=== PATIENT | female | born 1945 | race Caucasian/White ===

== ENCOUNTER → 2016-11-23 | Outpatient (REF) | payer MEDICARE ==
[~2016-11-23] MED LIST: ACET300T PO; ACET30TAB PO; ALBU1.25 INH; ALBU17IN INH; ALBU83IN INH; AMAR1TAB PO; AMLO5TAB2 PO; ASPI1TAB PO; ASPI325T PO; ASPI325T10 PO; ATOR40TA PO; AVEL1TAB PO; BISO5TAB54 PO; CIPR-250 PO; CIPR500T19 PO; CIPR500T89 PO; CITRACAL PO; CLOP75TA2 PO; CORT10TA PO; CORT20TA PO; DEPA250C PO; ENAL20TA PO; FLAG500T PO; GLIM1TAB PO; GLIP5TAB2 PO; GLIP5TAB8 PO; IPRASOL4 IN; LEVA500T PO; LOPR50TA PO; MAGN64TASA PO; METF500T PO; METO12TA PO; METO25TAB PO; NICO21PAT TD; NICO7DIS4 TD; NORC5TAB PO; PRED20TA PO; SIMV10TA2 PO; SIMV20TA2 PO; SPIR25TA2 PO; TYLE325T5 PO; TYLE650T30 PO; VALP250C PO; VENTAER IN; VITA100066 PO
[2016-11-23 15:13] LABS: TOTAL PROTEIN 6.4 GM/DL (6.4-8.2)
[2016-11-27 10:41] LABS: ALBUMIN 3.26 GM/DL (3.29-5.55); ALBUMIN % 50.9 % (55.8-66.1); GAMMA GLOBULIN % 12.6 % (11.1-18.8)
== END ==
LOC: M LAB REF 14:18
DX: D47.2 Monoclonal gammopathy (principal)

== ENCOUNTER → 2016-12-07 | Outpatient (CLI) | payer MEDICARE ==
[~2016-12-07] MED LIST changes: +LOPR1TAB6 PO; -LOPR50TA PO
--- NOTE | 2016-12-07 11:06 | REP ---
LEFT HUMERUS: TWO VIEWS. HISTORY: Followup fracture. Comparison left shoulder views are from October 26, 2016. FINDINGS: Today's two-view humerus radiographs demonstrate some healing callus formation at the site of the impacted and comminuted fracture of the surgical neck of the humerus. There is also a component of the fracture extending through the greater tuberosity region. Glenohumeral joint is normally aligned. There is diffuse osteopenia. There is slight residual apex anterolateral angulation. No displacement. IMPRESSION: Healing proximal humeral fracture. Signed by Mauricio Mcrae MD 12/07/2016 01:51 P
== END ==
LOC: M WUC 10:09
PROVIDERS: ATTEND Nurse Practitioner Adult Health
DX: S42.212D Unspecified displaced fracture of surgical neck of left humerus, subsequent encounter for fracture with routine healing (principal); X58.XXXD Exposure to other specified factors, subsequent encounter; Y92.89 Other specified places as the place of occurrence of the external cause

== ENCOUNTER 2017-01-26 19:44 | Inpatient (IN) | payer MEDICARE ==
[~2017-01-26] VITALS: Ht 154.9 cm; Wt 64.9 kg
[2017-01-26] MEDS ORDERED: SIMV10TA2 PO (20:05)
[2017-01-26] MEDS ORDERED: NS 1,000 ML IV ONE (21:00)
[2017-01-26] MEDS ORDERED: PANTOPRAZOLE 40MG INJ (PROTONIX) (C9113) IV ONE (21:00)
[2017-01-26] MEDS ORDERED: ONDANSETRON 4 MG ORAL DISINTEGRATING TAB (S0181) PO ONE (21:00)
[2017-01-26 21:06] LABS: BASO # 0.1 K/mm3 (0.0-0.2); BASO % 0.5 % (0.0-1.0); EOS # 0.3 K/mm3 (0.0-0.50); EOS % 2.6 % (0.0-3.0); LARGE UNSTAINED CELL # 0.2 K/mm3 (0.0-0.4); LARGE UNSTAINED CELL % 1.5 % (0.0-4.0); LYMPH # 4.1 K/mm3 (1.5-4.5); LYMPH % 30.8 % (24.0-44.0); MEAN CORPUSCULAR HEMOGLOBIN 34.1 pg (27.0-33.0); MEAN CORPUSCULAR HGB CONC 34.3 g/dl (32.0-36.5); MEAN CORPUSCULAR VOLUME 99.6 fl (80.0-96.0); MONO % 7.7 % (0.0-5.0); NEUTROPHILS # 7.2 K/mm3 (1.8-7.7); NEUTROPHILS % 56.8 % (36.0-66.0); PLATELET COUNT, AUTOMATED 393 k/mm3 (150-450); RED CELL DISTRIBUTION WIDTH 13.2 % (11.5-14.5); WHITE BLOOD COUNT 12.6 K/mm3 (4.0-10.0)
[2017-01-26 21:19] LABS: ALBUMIN 3.3 GM/DL (3.2-5.2); ALBUMIN/GLOBULIN RATIO 1.14 (1.00-1.93); ALKALINE PHOSPHATASE 53 U/L (45-117); ALT/SGPT 15 U/L (12-78); AMYLASE 23 U/L (25-115); ANION GAP 11 MEQ/L (8-16); AST/SGOT 5 U/L (15-37); BILIRUBIN,DIRECT 0.1 MG/DL (0.0-0.2); BILIRUBIN,TOTAL 0.3 MG/DL (0.2-1.0); BLOOD UREA NITROGEN 11 MG/DL (7-18); CALCIUM LEVEL 8.2 MG/DL (8.8-10.2); CARBON DIOXIDE LEVEL 27 MEQ/L (21-32); CHLORIDE LEVEL 104 MEQ/L (98-107); CREATININE FOR GFR 0.54 MG/DL (0.55-1.02); GLOMERULAR FILTRATION RATE > 60.0 (>39); GLUCOSE, FASTING 133 MG/DL (83-110); POTASSIUM SERUM 2.7 MEQ/L (3.5-5.1); SODIUM LEVEL 142 MEQ/L (136-145); TOTAL PROTEIN 6.2 GM/DL (6.4-8.2)
[2017-01-26] MEDS ORDERED: POTASSIUM CHLORIDE 10 MEQ SR TABLET PO ONE (21:45)
[2017-01-26] MEDS: KCL 40MEQ in NS 1000ML 1,000 ML IV SCH (22:04)
[2017-01-26] MEDS ORDERED: ISOVUE-370 76% 100ML VIAL (Q9967) As Ordered ONE (23:14)
[2017-01-27] VITALS (7 sets, daily range): BP systolic 102–156; BP diastolic 51–82
--- NOTE | 2017-01-27 | REPUSA ---
CLINICAL HISTORY: Abdominal pain. TECHNIQUE: Multiple axial, sagittal and coronal CT images were obtained through the abdomen and pelvi s after administration of intravenous contrast material. COMMENTS: The liver is of uniform attenuation without mass or defect. There is no intra or extrahepatic biliary ductal dilatation. The spleen is normal. The gallbladder contains 8 mm calcified gallstone. The ellis creas is of normal contour and attenuation characteristics. There is no evidence of adrenal mass. Both kidneys demonstrate prompt and equal nephrograms. The kidneys are normal in size, shape and conf iguration. There is no evidence of renal or ureteral mass. No renal or ureteral calculi are identifie d. There is no hydroureter or hydronephrosis. No evidence for appendicitis. There is wall thickening noted involving distal ileum, cecum and ascen ding colon compatible with ileitis and colitis. Sigmoid diverticulosis is noted without evidence of d iverticulitis. No evidence for small or large bowel obstruction. There is no evidence of abdominal a scites or lymphadenopathy. There is no evidence of intrinsic or extrinsic bladder mass. There is no pelvic ascites or lymphadeno harleen. Images of the lung bases show no evidence of pleural or parenchymal mass. There are no pleural effusi ons. The bony structures are free of lytic or blastic lesions. Multilevel degenerative changes are seen in volving the thoracolumbar spine. Scattered calcifications are seen involving the aorta and major bran ches compatible with atherosclerosis. IMPRESSION: Gallstone. There is wall thickening noted involving distal ileum, cecum and ascending colon compatible with ilei tis and colitis. Sigmoid Thank you for your kind referral of this patient.
[2017-01-27] MEDS ORDERED: POTASSIUM CHLORIDE 10 MEQ SR TABLET PO ONE ×2 (01:30→06:30)
[2017-01-27 01:39] LABS: MAGNESIUM LEVEL 1.5 MG/DL (1.8-2.4)
[2017-01-27] MEDS ORDERED: MAG SULF 1GM/100ML (MAG RUN) 1 GM in APPROPRIATE DILUENT 1 EA IV ONE ×3 (02:00→08:00)
[2017-01-27] MEDS ORDERED: ENAL20TA PO (02:25)
[2017-01-27] MEDS ORDERED: VITA200015 PO (02:25)
[2017-01-27] MEDS ORDERED: IPRASOL4 INH (02:25)
[2017-01-27] MEDS ORDERED: TYLE325T5 PO (02:29)
[2017-01-27] MEDS ORDERED: BREO1INH INH (02:29)
[2017-01-27] MEDS ORDERED: FOSA70TA PO (02:29)
[2017-01-27] MEDS ORDERED: CORT20TA PO (02:29)
[2017-01-27] MEDS ORDERED: ALBUTEROL 90 MCG/ACT 8GM HFA INHALER INH PRN (02:30)
[2017-01-27] MEDS ORDERED: GLUCOSE 4 GM CHEW TABLET PO PRN (02:30)
[2017-01-27] MEDS ORDERED: DEXTROSE 50% 50 ML SYRINGE IV PRN (02:30)
[2017-01-27] MEDS ORDERED: GLUCAGON FOR INJ 1 MG VIAL (J1610) SC PRN (02:30)
[2017-01-27] MEDS ORDERED: ONDANSETRON 4MG/2ML VIAL (J2405) IV PRN (02:30)
[2017-01-27] MEDS ORDERED: NS 1,000 ML IV SCH (02:56)
[2017-01-27] MEDS ORDERED: NICOTINE 14 MG/24 HR TRANSDERMAL TD ONE (03:15)
[2017-01-27] MEDS: PIPERACILLIN/TAZOBACTAM SOD 3.375 GM in D5W MINI-BAG PLUS 50 ML IV SCH ×3 (04:13→20:13)
--- NOTE | 2017-01-27 05:28 | HPEPDOC ---
General Date of Admission Jan 27, 2017 at 01:56 Primary Care Physician: Jr Caicedo Collins Attending Physician: SALVADOR LANGFORD MD Chief Complaint The patient is a 71-year-old female admitted with a reason for visit of Colitis, Hypokalemia. Source: Patient, Family, RN notes reviewed, Old records Exam Limitations: No limitations Timing/Duration: Constant, Getting worse Associated Symptoms: Shortness of breath History of Present Illness Ms. Solano is a 71-year-old female who presents to [facility]'s emergency Department with diarrhea. She is accompanied by her partner who provides some of the history. Past medical history significant for hypertension, chronic obstructive pulmonary disease, dyslipidemia, diabetes mellitus, coronary artery disease, seizure, diverticulosis, adrenal insufficiency, history of bowel obstructions, history of cerebrovascular accident (reported per patient's partner), tobacco abuse. Patient states that over the last 2 weeks (and according to partner, 2 months) she has experienced nonbloody, non-mucoid, watery diarrhea with associated abdominal cramping. Patient notes that the abdominal cramping appears to be associated with the bowel movements. Pain located across the entire lower abdomen. Patient was started on Trulicity recently and had noticed the diarrhea since starting the Trulicity. She subsequently stopped the Trulicity, but the diarrhea persisted. Patient states that the amount of diarrhea she has depends on what she eats. At least two episodes a day. She denies a decrease in appetite. She states she still eats, but that it "passes right through her ". Patient reports associated back pain, but relates it to her abdominal pain. Denies nausea, vomiting. Does report an unintentional weight loss of approximately 40 pounds over the last 6 months. Reports a negative experience with a prior colonoscopy where her blood pressure increased prior to the actual procedure and she has since had some trepidation about receiving another colonoscopy. Admits to shortness of breath with ambulation, postnasal drainage, age-related presbycusis. Patient denies urinary symptoms (urinary frequency, urinary urgency , dysuria, hematuria), fever, headache, night sweats, chills, sore throat, cough , chest pain, palpitations, numbness, tingling, swelling. Hospitalist service was consulted and patient was subsequently admitted for further medical management. Home Medications Scheduled Alendronate Sodium (Fosamax) 70 Mg Tab 70 MG PO ASDIRECTED (Reported) 1xW - Mondays Amlodipine Besylate (Amlodipine Besylate) 5 Mg Tab 5 MG PO DAILY (Reported) Aspirin (Aspirin 81) 81 Mg Tab 81 MG PO DAILY (Reported) Cholecalciferol (Vitamin D) 2,000 Unit Tab 2,000 UNIT PO DAILY (Reported) Enalapril Maleate (Enalapril Maleate) 20 Mg Tab 20 MG PO QPM (Reported) Fluticasone/Vilanterol (Breo Ellipta 100-25 Mcg/INH) 1 Inh Inh 1 PUFF INH DAILY (Reported) Hydrocortisone Base (Cortef) 10 Mg Tab 10 MG PO QHS (Reported) Hydrocortisone Base (Cortef) 20 Mg Tab 20 MG PO DAILY (Reported) Metformin Hydrochloride (Metformin HCl) 500 Mg Tab 500 MG PO BID (Reported) Metoprolol Tartrate (Metoprolol Tartrate) 25 Mg Tab 25 MG PO BID (Reported) Simvastatin (Simvastatin) 10 Mg Tab 10 MG PO QPM (Reported) Valproic Acid (Depakene) 250 Mg Cap 250 MG PO TID (Reported) Scheduled PRN Acetaminophen (Tylenol) 325 Mg Tab 650 MG PO TID PRN PRN PAIN (Reported) Albuterol Sulfate (Ventolin Hfa) 200 Puff/8 Gm Aers 2 PUFF INH Q4H PRN PRN SHORTNESS OF BREATH (Reported) Albuterol/Ipratropium (Ipratropium Gatzke/Albut 0.5-2.5 (3) mg/3Ml) 1 Neeraj Neeraj 1 NEERAJ INH Q4H PRN PRN SHORTNESS OF BREATH (Reported) Allergies Coded Allergies: Propoxyphene (Verified Adverse Reaction, Mild, NUMBNESS, 11/26/13) NO LONGER MADE Past Medical History Medical History 1. Hypertension 2. Dyslipidemia 3. Chronic obstructive pulmonary disease 4. Diabetes mellitus 5. Coronary artery disease 6. Seizure disorder 7. Tobacco abuse 8. Adrenal insufficiency 9. History of cerebrovascular accident (per reported history provided by patient 's partner) 10. History of bowel obstructions Surgical History 1. Hysterectomy 2. Breast biopsy with removal of cyst Family History Significant Family History: Asthma, Cancer (Brother, pancreatic cancer), COPD ( mother, at 44 secondary to COPD), Diabetes (father) Social History * Smoker: current smoker (one pack a day since the age of 15) Alcohol: Denies Drugs: denies Recent Travel/Sick Contacts: Denies: Recent sick contacts, Recent travel Review of Symptoms Constitutional: Reports: Weakness, Weight Loss (unintentional, approximately 40 pound weight loss over 6 months), Denies: Chills, Fever, Night Sweats Eyes: Reports: Other (denies acute changes to vision, including blurriness, diplopia, acute transient vision loss) ENT: Reports: Other Symptoms (age-related presbycusis), Post Nasal Drip, Denies: Head Aches Skin: Reports: Dry, Denies: Lesions, Rash Pulmonary: Reports: Dyspnea (with ambulation), Denies: Cough Cardiovascular: Denies: Chest Pain, Edema, Lt Headedness, Orthopnea, Palpitations, Paroxysmal Noc. Dyspnea Gastrointestinal: Reports: Abdominal Pain (diffuse lower abdominal pain), Diarrhea (nonbloody, nonmucoid, watery), Denies: Constipation, Hematochezia, Melena, Nausea, Vomiting Genitourinary: Denies: Dysuria, Frequency, Hematuria, Incontinence Hematologic: Denies: Bruising, Petecchia, Purpura Musculoskeletal: Reports: Back Pain (possibly related to diffuse lower abdominal pain), Denies: Muscle Pain Neurological: Reports: Weakness, Denies: Change in speech, Numbness Physical Examination General Exam: Positive: Alert, Cooperative, No Acute Distress Eye Exam: Positive: Conjunctiva & lids normal, EOMI, PERRLA, Negative: Sclera icteric ENT Exam: Positive: Atraumatic, Nares Patent, Pharynx Normal, Tongue Midline, Negative: Mucous membr. moist/pink Neck Exam: Positive: Other (trachea midline), Supple, Negative: JVD, Lymphadenopathy, thyromegaly Chest Exam: Positive: Clear to auscultation, Normal air movement Heart Exam: Positive: Normal S1, Normal S2, Rate Normal, Regular Rhythm, Negative: Murmurs, Rubs Abdomen Exam: Positive: BS Hypoactive, Soft, Negative: Hepatospenomegaly, Mass, Tenderness Extremity Exam: Positive: Normal pulses, Negative: Clubbing, Cyanosis, Edema, Swelling, Tenderness Skin Exam: Positive: Other skin issue (dry skin noted) Neuro Exam: Positive: Cranial Nerves 3-12 NL, Normal Speech, Strength at 5/5 X4 ext Other physical findings CT of the abdomen and pelvis with IV contrast only COMMENTS: The liver is of uniform attenuation without mass or defect. There is no intra- or extrahepatic biliary ductal dilatation. The spleen is normal. The gallbladder contains 8 mm calcified gallstone. The pancreas is of normal contour and attenuation characteristics. There is no evidence of adrenal mass. Both kidneys demonstrate prompt and equal nephrograms. The kidneys are normal in shape, size and configuration. There is no evidence of renal or ureteral mass. No renal or ureteral catheter identified. There is no hydroureter or hydronephrosis. No evidence for appendicitis. There is wall thickening noted involving distal ileum, cecum and ascending colon compatible with ileitis and colitis. Sigmoid diverticulosis is noted without evidence of diverticulitis. No evidence for small or large bowel obstruction. There is no evidence of abdominal ascites or lymphadenopathy. There is no evidence of intrinsic or extrinsic bladder mass. There is no pelvic ascites or lymphadenopathy. Images of the lung bases show no evidence of pleural parenchymal mass. There are no pleural effusions. The bony structures are free of lytic or blastic lesions. Multilevel degenerative changes are seen involving the thoracolumbar spine. Scattered calcifications are seen involving the aorta and major branches compatible with atherosclerosis. IMPRESSION: Gallstone. There is wall thickening noted involving distal ileum, cecum and ascending colon compatible with ileitis and colitis. Sigmoid diverticulosis. Digital rectal exam: external examination revealed no excoriations, lesions, erythema, or visible hemorrhoids. Blind digital sweep of anus revealed no abnormalities, including lesions ot retained stool. Fecal occult stool card was negative. Vital Signs T 98.9 HR 97 RR 16 BP 128/81 O2 97% RA Height (in): 61 Weight (kg): 60.5 BMI (kg): 25.2 Laboratory Data Labs 24H Laboratory Tests 2 01/26/17 20:27: Bedside Glucose (Misc Panel) 116H 01/26/17 20:43: Aspartate Amino Transf (AST/SGOT) 5L, Alanine Aminotransferase (ALT/SGPT) 15, Alkaline Phosphatase 53, Total Bilirubin 0.3, Direct Bilirubin 0.1, Albumin 3.3 , Albumin/Globulin Ratio 1.14, Amylase Level 23L, Anion Gap 11, White Blood Count 12.6H, Red Blood Count 4.49, Hemoglobin 15.3, Hematocrit 44.7, Mean Corpuscular Volume 99.6H, Mean Corpuscular Hemoglobin 34.1H, Mean Corpuscular Hemoglobin Concent 34.3, Red Cell Distribution Width 13.2, Platelet Count 393, Neutrophils (%) (Auto) 56.8, Lymphocytes (%) (Auto) 30.8, Monocytes (%) (Auto) 7.7H, Eosinophils (%) (Auto) 2.6, Basophils (%) (Auto) 0.5, Neutrophils # (Auto ) 7.2, Lymphocytes # (Auto) 4.1, Monocytes # (Auto) 1.0H, Eosinophils # (Auto) 0.3, Basophils # (Auto) 0.1, Calcium Level 8.2L, Glomerular Filtration Rate > 60.0, Large Unclassified Cells # 0.2, Large Unclassified Cells % 1.5, Lipase 96 , Magnesium Level 1.5L, Total Protein 6.2L 01/26/17 22:37: Urine Amorphous Sediment , Urine Appearance CLEAR, Urine Color COLORLESS, Urine pH 6.0, Urine Specific Custer 1.003, Urine Protein NEGATIVE, Urine Glucose (UA ) NEGATIVE, Urine Ketones NEGATIVE, Urine Urobilinogen 0.2, Urine Bilirubin NEGATIVE, Urine Leukocyte Esterase NEGATIVE, Urine Bacteria (Auto) NEGATIVE, Urine Blood NEGATIVE, Urine Calcium Carbonate Cryst(Auto) , Urine Calcium Oxalate Cryst (Auto) , Urine Calcium Phosphate [place] (Auto) , Urine Cellular Casts , Urine Cystine Crystals , Urine Granular Casts (Auto) , Urine Hyaline Casts (Auto) 0, Urine Leucine Crystals , Urine Mucus (Auto) , Urine Nitrite NEGATIVE, Urine Oval Fat Bodies (Auto) , Urine RBC (Auto) 1, Urine Renal Epithelial Cells , Urine Sperm (Auto) , Urine Squamous Epithelial Cells 1, Urine Transitional Epithelial Cells , Urine Trichomonas (Auto) , Urine Triple Phosphate Cryst (Auto) , Urine Tyrosine Crystals , Urine Uric Acid Crystals ( Auto) , Urine WBC (Auto) 1, Urine Waxy Casts (Auto) , Urine Yeast-Like Cells ( Auto) 01/27/17 02:18: Lactic Acid (Sepsis) 0.8 01/27/17 02:19: CBC/BMP Laboratory Tests 01/26/17 20:43 Red Blood Count 4.49, Mean Corpuscular Volume 99.6 H, Mean Corpuscular Hemoglobin 34.1 H, Mean Corpuscular Hemoglobin Concent 34.3, Red Cell Distribution Width 13.2, Neutrophils (%) (Auto) 56.8, Lymphocytes (%) (Auto) 30.8, Monocytes (%) (Auto) 7.7 H, Eosinophils (%) (Auto) 2.6, Basophils (%) ( Auto) 0.5, Neutrophils # (Auto) 7.2, Lymphocytes # (Auto) 4.1, Monocytes # (Auto ) 1.0 H, Eosinophils # (Auto) 0.3, Basophils # (Auto) 0.1 Microbiology Microbiology 01/27/17 Blood Culture, Received Pending 01/27/17 Gastrointestinal Tract Panel (PCR), Received Pending Assessment/Plan This is a 71-year-old female who presents with chronic, persistent diarrhea. CT of the abdomen and pelvis reveals ileitis and colitis. Secondary to patient's unintentional weight loss of approximately 40 pounds over 6 months question other underlying pathology. Problems (1) Colitis Status: Acute Problem Text: CT of the abdomen and pelvis with IV contrast only reveals ileitis and colitis Make patient nothing by mouth for the time being Provide intravenous fluid resuscitation Provide Zofran as needed Empirically treat with Zosyn Obtain gastrointestinal panel Obtain stool chloride, potassium, sodium, osmolality Could consider outpatient colonoscopy (2) Hypokalemia Status: Acute Problem Text: Patient's potassium of presentation is 2.7 Likely secondary to patient's chronic, persistent diarrhea Provide supplementation 40 mEq potassium in normal saline at 100 mLs per hour Obtain EKG Magnesium was also low at 1.5 - Provided supplementation (3) Chronic obstructive pulmonary disease Status: Chronic Problem Text: O2 saturation 97% on room air Continue home breathing medications (4) Diabetes mellitus Status: Chronic Problem Text: Blood glucose on presentation was 133 Continue patient on fingersticks before meals and at bedtime Administer sliding scale insulin as needed Monitor with daily BMP (5) Adrenal insufficiency Status: Chronic Problem Text: WBC 12.6 Likely secondary to chronic steroid use Continue home dose of steroid Monitor daily CBC (6) Tobacco abuse Status: Chronic Problem Text: Provide nicotine patch Plan / VTE VTE Prophylaxis Ordered?: Yes (TEDs and sequentials) Plan Plan Colitis Patient has been having chronic, persistent diarrhea anywhere between 2 weeks and 2 months. We'll make patient nothing by mouth for the time being (may have ice chips). Will fluid resuscitate with KCl 40 and normal saline at 100 mLs per hour. Obtain a GI panel. Obtain stool chloride, sodium, potassium, osmolality to determine type of diarrhea. Provide Zofran as needed. Empirically treat with Zosyn. Patient's white count is 12.6. Could be secondary to underlying gastrointestinal inflammation or patient's chronic steroid use secondary to adrenal insufficiency. We'll monitor with daily CBC. Hypokalemia Patient's potassium at time of presentation was 2.7. Likely secondary to patient 's chronic, persistent diarrhea. Replenishment was provided in the emergency department and patient is receiving KCl 40 in normal saline at 100 mLs per hour. We'll monitor with daily BMP. In line with hypokalemia patient's magnesium was also low at 1.5. Replenishment has been provided. This should also help improve the hypokalemia. Repeat magnesium and BMP. We'll also obtain EKG secondary to patient's low potassium. Diabetes mellitus Patient's blood glucose at time of presentation was 133. Will manage patient with fingersticks before meals and at bedtime as well as sliding scale insulin as needed. Tobacco abuse Patient smokes 1 pack per day and has done so since the age of 15. Have provided a nicotine patch will patient is hospitalized. Chronic obstructive pulmonary disease Patient's oxygenation is 97% on room air. We'll continue patient's home medications for management of COPD. DVT prophylaxis: TEDs and sequentials Diet: Nothing by mouth for the time being; may have ice chips Disposition Admit to the progressive care unit Anticipated hospitalization: 2 nights Attending: Dr. Sherman IVF: Initiate (KCl 40 in normal saline at 100 mLs per hour) Diet: Make NPO (may have ice chips) Activity: Continue Current (encourage ambulation) Diagnostics: Check Labs, Repeat Labs in AM Anticipated Discharge: Home THANG LACY Jan 27, 2017 03:33
[2017-01-27] MEDS: HumaLOG INSULIN (NovoLOG) PER UNIT SC SCH ×3 (06:00→18:23)
[2017-01-27 06:06] LABS: ALBUMIN 2.9 GM/DL (3.2-5.2); ALKALINE PHOSPHATASE 48 U/L (45-117); ALT/SGPT 9 U/L (12-78); ANION GAP 9 MEQ/L (8-16); AST/SGOT 14 U/L (15-37); BILIRUBIN,TOTAL 0.4 MG/DL (0.2-1.0); BLOOD UREA NITROGEN 6 MG/DL (7-18); CALCIUM LEVEL 7.7 MG/DL (8.8-10.2); CARBON DIOXIDE LEVEL 27 MEQ/L (21-32); CHLORIDE LEVEL 109 MEQ/L (98-107); CREATININE FOR GFR 0.42 MG/DL (0.55-1.02); GLOMERULAR FILTRATION RATE > 60.0 (>39); GLUCOSE, FASTING 93 MG/DL (83-110); MAGNESIUM LEVEL 1.7 MG/DL (1.8-2.4); POTASSIUM SERUM 2.8 MEQ/L (3.5-5.1); SODIUM LEVEL 145 MEQ/L (136-145); TOTAL PROTEIN 5.8 GM/DL (6.4-8.2)
[2017-01-27] MEDS: ACETAMINOPHEN TAB 650MG DOSE (2X325MG) PO PRN ×2 (06:34→22:37)
[2017-01-27] MEDS: IPRATROPIUM 0.5MG/ALBUTEROL 2.5MG INH SOL UD 3ML (DUONEB)(J7620) INH SCH ×3 (07:33→19:58)
[2017-01-27] MEDS: NICOTINE 14 MG/24 HR TRANSDERMAL TD SCH (08:31)
[2017-01-27] MEDS: VALPROIC ACID 250 MG CAP PO SCH ×3 (08:32→20:12)
[2017-01-27] MEDS: ASPIRIN 81 MG ENTERIC TAB PO SCH (08:32)
[2017-01-27] MEDS: amLODIPine 5 MG TAB PO SCH (08:32)
[2017-01-27] MEDS: VITAMIN D 1,000 INTERNATIONAL UNITS TABLET PO SCH (08:32)
[2017-01-27] MEDS: HYDROCORTISONE 10 MG TAB PO SCH ×2 (08:32→20:12)
[2017-01-27] MEDS: METOPROLOL TART 25 MG TABLET PO SCH ×2 (08:33→20:12)
[2017-01-27] MEDS: KCL 40MEQ in NS 1000ML 1,000 ML IV SCH ×3 (08:33→20:12)
[2017-01-27] MEDS ORDERED: ALBUTEROL SULFATE 2.5 MG/0.5 ML INH NEB SOLN INH SCH (09:00)
[2017-01-27 12:42] LABS: MAGNESIUM LEVEL 2.3 MG/DL (1.8-2.4); POTASSIUM SERUM 3.6 MEQ/L (3.5-5.1)
--- NOTE | 2017-01-27 15:11 | ECGEPIP ---
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 Rule out prior septal injury Nonspecific ST/T-wave abnormalities Compared with 09/20/16 - in terms septal injury versus change in lead position Clinical correlation advised Electronically Signed On 01-27-2017 15:11:19 EDT by Mor Van
--- NOTE | 2017-01-27 15:16 | IPNPDOC ---
Subjective Date Seen The patient was seen on 01/27/17. Subjective Chief Complaint/HPI The patient is a 71-year-old female admitted with a reason for visit of Colitis, Hypokalemia. Events since last encounter pt still complaining of diarrhea but it has been there for a few weeks with diet Constitutional: Denies: Chills, Fever, Night Sweats Objective Physical Examination General Exam: Positive: Alert, Cooperative, No Acute Distress Eye Exam: Positive: Conjunctiva & lids normal, EOMI, PERRLA, Negative: Sclera icteric ENT Exam: Positive: Atraumatic, Nares Patent, Pharynx Normal, Tongue Midline, Negative: Mucous membr. moist/pink Neck Exam: Positive: Other (trachea midline), Supple, Negative: JVD, Lymphadenopathy, thyromegaly Chest Exam: Positive: Clear to auscultation, Normal air movement Heart Exam: Positive: Normal S1, Normal S2, Rate Normal, Regular Rhythm, Negative: Murmurs, Rubs Abdomen Exam: Positive: BS Hypoactive, Soft, Negative: Hepatospenomegaly, Mass, Tenderness Extremity Exam: Positive: Normal pulses, Negative: Clubbing, Cyanosis, Edema, Swelling, Tenderness Skin Exam: Positive: Other skin issue (dry skin noted) Neuro Exam: Positive: Cranial Nerves 3-12 NL, Normal Speech, Strength at 5/5 X4 ext Assessment /Plan Problems (1) Colitis Status: Acute Problem Text: * CT of the abdomen and pelvis with IV contrast only reveals ileitis and colitis * will start pt on fiber diet * Provide intravenous fluid resuscitation * Provide Zofran as needed * Empirically treat with Zosyn * gastrointestinal panel negative * Could consider outpatient colonoscopy (2) Hypokalemia Status: Acute Response to Treatment: Improving Problem Text: * Patient's potassium of presentation is 2.8 * secondary to patient's chronic, persistent diarrhea * replace mag and recheck (3) Chronic obstructive pulmonary disease Status: Chronic Problem Text: * O2 saturation 97% on room air * Continue home breathing medications (4) Diabetes mellitus Status: Chronic Problem Text: * Continue patient on fingersticks before meals and at bedtime * Administer sliding scale insulin as needed (5) Adrenal insufficiency Status: Chronic Problem Text: * Likely secondary to chronic steroid use * Continue home dose of steroid (6) Tobacco abuse Status: Chronic Problem Text: Provide nicotine patch Plan/VTE VTE Prophylaxis Ordered?: Yes (Amanda and sequentials) Plan IVF: Initiate (KCl 40 in normal saline at 100 mLs per hour) Diet: Make NPO (may have ice chips) Activity: Continue Current (encourage ambulation) Diagnostics: Check Labs, Repeat Labs in AM Anticipated Discharge: Home VS, I&O, 24H, Fishbone Vital Signs/I&O Vital Signs Date Time Temp Pulse Resp B/P Pulse Ox O2 Delivery O2 Flow Rate FiO2 01/27/17 12:00 98.0 68 18 112/60 98 Room Air I&O- Last 24 Hours up to 6 AM 01/27/17 06:00 Intake Total 250 ml Output Total 600 ml Balance -350 ml Laboratory Data 24H LABS Laboratory Tests 2 01/26/17 20:27: Bedside Glucose (Misc Panel) 116H 01/26/17 20:43: Aspartate Amino Transf (AST/SGOT) 5L, Alanine Aminotransferase (ALT/SGPT) 15, Alkaline Phosphatase 53, Total Bilirubin 0.3, Direct Bilirubin 0.1, Albumin 3.3 , Albumin/Globulin Ratio 1.14, Amylase Level 23L, Anion Gap 11, White Blood Count 12.6H, Red Blood Count 4.49, Hemoglobin 15.3, Hematocrit 44.7, Mean Corpuscular Volume 99.6H, Mean Corpuscular Hemoglobin 34.1H, Mean Corpuscular Hemoglobin Concent 34.3, Red Cell Distribution Width 13.2, Platelet Count 393, Neutrophils (%) (Auto) 56.8, Lymphocytes (%) (Auto) 30.8, Monocytes (%) (Auto) 7.7H, Eosinophils (%) (Auto) 2.6, Basophils (%) (Auto) 0.5, Neutrophils # (Auto ) 7.2, Lymphocytes # (Auto) 4.1, Monocytes # (Auto) 1.0H, Eosinophils # (Auto) 0.3, Basophils # (Auto) 0.1, Calcium Level 8.2L, Glomerular Filtration Rate > 60.0, Large Unclassified Cells # 0.2, Large Unclassified Cells % 1.5, Lipase 96 , Magnesium Level 1.5L, Total Protein 6.2L 01/26/17 22:37: Urine Amorphous Sediment , Urine Appearance CLEAR, Urine Color COLORLESS, Urine pH 6.0, Urine Specific [place] 1.003, Urine Protein NEGATIVE, Urine Glucose (UA ) NEGATIVE, Urine Ketones NEGATIVE, Urine Urobilinogen 0.2, Urine Bilirubin NEGATIVE, Urine Leukocyte Esterase NEGATIVE, Urine Bacteria (Auto) NEGATIVE, Urine Blood NEGATIVE, Urine Calcium Carbonate Cryst(Auto) , Urine Calcium Oxalate Cryst (Auto) , Urine Calcium Phosphate [place] (Auto) , Urine Cellular Casts , Urine Cystine Crystals , Urine Granular Casts (Auto) , Urine Hyaline Casts (Auto) 0, Urine Leucine Crystals , Urine Mucus (Auto) , Urine Nitrite NEGATIVE, Urine Oval Fat Bodies (Auto) , Urine RBC (Auto) 1, Urine Renal Epithelial Cells , Urine Sperm (Auto) , Urine Squamous Epithelial Cells 1, Urine Transitional Epithelial Cells , Urine Trichomonas (Auto) , Urine Triple Phosphate Cryst (Auto) , Urine Tyrosine Crystals , Urine Uric Acid Crystals ( Auto) , Urine WBC (Auto) 1, Urine Waxy Casts (Auto) , Urine Yeast-Like Cells ( Auto) 01/27/17 02:18: Lactic Acid (Sepsis) 0.8 01/27/17 02:19: 01/27/17 05:24: Blood Urea Nitrogen 6L, Creatinine 0.42L, Sodium Level 145, Potassium Level 2.8* L, Chloride Level 109H, Carbon Dioxide Level 27, Calcium Level 7.7L, Aspartate Amino Transf (AST/SGOT) 14L, Alanine Aminotransferase (ALT/SGPT) 9L, Alkaline Phosphatase 48, Total Bilirubin 0.4, Total Protein 5.8L, Albumin 2.9L, Albumin/ Globulin Ratio 1.00, Anion Gap 9, Glomerular Filtration Rate > 60.0, Magnesium Level 1.7L 01/27/17 12:02: Magnesium Level 2.3 CBC/BMP Laboratory Tests 01/26/17 20:43 Red Blood Count 4.49, Mean Corpuscular Volume 99.6 H, Mean Corpuscular Hemoglobin 34.1 H, Mean Corpuscular Hemoglobin Concent 34.3, Red Cell Distribution Width 13.2, Neutrophils (%) (Auto) 56.8, Lymphocytes (%) (Auto) 30.8, Monocytes (%) (Auto) 7.7 H, Eosinophils (%) (Auto) 2.6, Basophils (%) ( Auto) 0.5, Neutrophils # (Auto) 7.2, Lymphocytes # (Auto) 4.1, Monocytes # (Auto ) 1.0 H, Eosinophils # (Auto) 0.3, Basophils # (Auto) 0.1 01/27/17 05:24 Calcium Level 7.7 L, Aspartate Amino Transf (AST/SGOT) 14 L, Alanine Aminotransferase (ALT/SGPT) 9 L, Alkaline Phosphatase 48, Total Bilirubin 0.4, Total Protein 5.8 L, Albumin 2.9 L 01/27/17 12:02 Microbiology Microbiology 01/27/17 Blood Culture, Received Pending 01/27/17 Blood Culture, Received Pending 01/27/17 Gastrointestinal Tract Panel (PCR) - Final, Complete JONA MAC DO Jan 27, 2017 15:16
[2017-01-27] MEDS: SIMVASTATIN 10 MG TAB PO SCH (18:22)
[2017-01-27] MEDS: ENALAPRIL MALEATE 10 MG TAB PO SCH (18:23)
[2017-01-28] MEDS ORDERED: DEXTROSE 50% 50 ML SYRINGE IV PRN (00:15)
[2017-01-28] MEDS ORDERED: GLUCOSE 4 GM CHEW TABLET PO PRN (00:15)
[2017-01-28] MEDS ORDERED: GLUCAGON FOR INJ 1 MG VIAL (J1610) SC PRN (00:15)
[2017-01-28] MEDS: HumaLOG INSULIN (NovoLOG) PER UNIT SC SCH ×6 (00:49→21:00)
[2017-01-28 03:44] VITALS: BP 136/60
[2017-01-28] MEDS ORDERED: ALBUTEROL SULFATE 2.5 MG/0.5 ML INH NEB SOLN As Ordered ONE (04:10)
[2017-01-28] MEDS: PIPERACILLIN/TAZOBACTAM SOD 3.375 GM in D5W MINI-BAG PLUS 50 ML IV SCH ×3 (04:52→21:37)
[2017-01-28] MEDS ORDERED: IPRATROPIUM 0.5MG/ALBUTEROL 2.5MG INH SOL UD 3ML (DUONEB)(J7620) NEB PRN (05:00)
[2017-01-28 05:53] LABS: MEAN CORPUSCULAR HGB CONC 33.3 g/dl (32.0-36.5); RED CELL DISTRIBUTION WIDTH 13.4 % (11.5-14.5); WHITE BLOOD COUNT 9.8 K/mm3 (4.0-10.0)
[2017-01-28 06:01] LABS: ANION GAP 8 MEQ/L (8-16); BLOOD UREA NITROGEN 3 MG/DL (7-18); CALCIUM LEVEL 7.4 MG/DL (8.8-10.2); CARBON DIOXIDE LEVEL 25 MEQ/L (21-32); CHLORIDE LEVEL 113 MEQ/L (98-107); CREATININE FOR GFR 0.42 MG/DL (0.55-1.02); GLOMERULAR FILTRATION RATE > 60.0 (>39); GLUCOSE, FASTING 118 MG/DL (83-110); POTASSIUM SERUM 3.7 MEQ/L (3.5-5.1); SODIUM LEVEL 146 MEQ/L (136-145)
[2017-01-28] MEDS: IPRATROPIUM 0.5MG/ALBUTEROL 2.5MG INH SOL UD 3ML (DUONEB)(J7620) INH SCH ×3 (07:30→19:38)
[2017-01-28 07:35] VITALS: BP 127/59
[2017-01-28] MEDS: NICOTINE 14 MG/24 HR TRANSDERMAL TD SCH (08:11)
[2017-01-28] MEDS: VITAMIN D 1,000 INTERNATIONAL UNITS TABLET PO SCH (08:12)
[2017-01-28] MEDS: ASPIRIN 81 MG ENTERIC TAB PO SCH (08:12)
[2017-01-28] MEDS: VALPROIC ACID 250 MG CAP PO SCH ×3 (08:12→21:36)
[2017-01-28] MEDS: METOPROLOL TART 25 MG TABLET PO SCH ×2 (08:18→21:36)
[2017-01-28] MEDS: HYDROCORTISONE 10 MG TAB PO SCH ×2 (08:18→21:36)
[2017-01-28] MEDS: amLODIPine 5 MG TAB PO SCH (08:19)
[2017-01-28] MEDS: guaiFENesin ER 600 MG TAB PO SCH ×2 (11:51→21:36)
[2017-01-28 15:15] VITALS: BP 124/61
--- NOTE | 2017-01-28 15:52 | IPNPDOC ---
Subjective Date Seen The patient was seen on 01/28/17. Subjective Chief Complaint/HPI The patient is a 71-year-old female admitted with a reason for visit of Colitis, Hypokalemia. Events since last encounter pt seen and examined, still having some abdominal pain but diarrhea resolved, Objective Physical Examination General Exam: Positive: Alert, Cooperative, No Acute Distress Eye Exam: Positive: Conjunctiva & lids normal, EOMI, PERRLA, Negative: Sclera icteric ENT Exam: Positive: Atraumatic, Nares Patent, Pharynx Normal, Tongue Midline, Negative: Mucous membr. moist/pink Neck Exam: Positive: Other (trachea midline), Supple, Negative: JVD, Lymphadenopathy, thyromegaly Chest Exam: Positive: Clear to auscultation, Normal air movement Heart Exam: Positive: Normal S1, Normal S2, Rate Normal, Regular Rhythm, Negative: Murmurs, Rubs Abdomen Exam: Positive: BS Hypoactive, Soft, Negative: Hepatospenomegaly, Mass, Tenderness Extremity Exam: Positive: Normal pulses, Negative: Clubbing, Cyanosis, Edema, Swelling, Tenderness Skin Exam: Positive: Other skin issue (dry skin noted) Neuro Exam: Positive: Cranial Nerves 3-12 NL, Normal Speech, Strength at 5/5 X4 ext Assessment /Plan Problems (1) Colitis Status: Acute Problem Text: * CT of the abdomen and pelvis with IV contrast only reveals ileitis and colitis * will start pt on fiber diet * Provide intravenous fluid resuscitation * Provide Zofran as needed * Complete empirically treat with Zosyn * gastrointestinal panel negative (2) Hypokalemia Status: Resolved Response to Treatment: Improving Problem Text: * resolved * will transfer pt out of pcu now (3) Chronic obstructive pulmonary disease Status: Chronic Problem Text: * O2 saturation 97% on room air * Continue home breathing medications (4) Diabetes mellitus Status: Chronic Problem Text: * Continue patient on fingersticks before meals and at bedtime * Administer sliding scale insulin as needed (5) Adrenal insufficiency Status: Chronic Problem Text: * Likely secondary to chronic steroid use * Continue home dose of steroid (6) Tobacco abuse Status: Chronic Problem Text: Provide nicotine patch Plan/VTE VTE Prophylaxis Ordered?: Yes (TEDs and sequentials) Plan IVF: Initiate (KCl 40 in normal saline at 100 mLs per hour) Diet: Make NPO (may have ice chips) Activity: Continue Current (encourage ambulation) Diagnostics: Check Labs, Repeat Labs in AM Anticipated Discharge: Home VS, I&O, 24H, Eun Vital Signs/I&O Vital Signs Date Time Temp Pulse Resp B/P Pulse Ox O2 Delivery O2 Flow Rate FiO2 01/28/17 15:15 100.1 81 18 124/61 96 Room Air I&O- Last 24 Hours up to 6 AM 01/28/17 06:00 Intake Total 3190 ml Output Total 150 ml Balance 3040 ml Laboratory Data 24H LABS Laboratory Tests 2 01/28/17 04:52: Anion Gap 8, Blood Urea Nitrogen 3L, Creatinine 0.42L, Sodium Level 146H, Potassium Level 3.7, Chloride Level 113H, Carbon Dioxide Level 25, Calcium Level 7.4L, Glomerular Filtration Rate > 60.0 CBC/BMP Laboratory Tests 01/28/17 04:52 Calcium Level 7.4 L, Red Blood Count 3.75 L, Mean Corpuscular Volume 102.0 H, Mean Corpuscular Hemoglobin 34.0 H, Mean Corpuscular Hemoglobin Concent 33.3, Red Cell Distribution Width 13.4 Microbiology Microbiology 01/27/17 Blood Culture - Preliminary, Resulted No growth after 24 hours . All specim... 01/27/17 Blood Culture - Preliminary, Resulted No growth after 24 hours . All specim... 01/27/17 Gastrointestinal Tract Panel (PCR) - Final, Complete JONA MAC DO Jan 28, 2017 15:52
[2017-01-28] MEDS: ACETAMINOPHEN TAB 650MG DOSE (2X325MG) PO PRN ×2 (16:33→22:51)
[2017-01-28] MEDS: SIMVASTATIN 10 MG TAB PO SCH (17:54)
[2017-01-28] MEDS: ENALAPRIL MALEATE 10 MG TAB PO SCH (17:54)
[2017-01-28 22:00] VITALS: BP 136/71
[2017-01-29] MEDS ORDERED: methylPREDNISolone INJ 125 MG/2 ML VIAL (J2930) IV SCH (00:45)
[2017-01-29] MEDS: IPRATROPIUM 0.5MG/ALBUTEROL 2.5MG INH SOL UD 3ML (DUONEB)(J7620) NEB PRN (02:39)
[2017-01-29] MEDS: PIPERACILLIN/TAZOBACTAM SOD 3.375 GM in D5W MINI-BAG PLUS 50 ML IV SCH (04:28)
[2017-01-29 05:55] LABS: MEAN CORPUSCULAR HEMOGLOBIN 33.4 pg (27.0-33.0); MEAN CORPUSCULAR HGB CONC 32.6 g/dl (32.0-36.5); MEAN CORPUSCULAR VOLUME 102.5 fl (80.0-96.0); RED CELL DISTRIBUTION WIDTH 13.3 % (11.5-14.5); WHITE BLOOD COUNT 9.3 K/mm3 (4.0-10.0)
[2017-01-29 06:00] VITALS: BP 127/65
[2017-01-29] MEDS: CIPROFLOXACIN 500 MG TAB PO SCH ×2 (06:00→18:08)
[2017-01-29 06:07] LABS: ANION GAP 9 MEQ/L (8-16); BLOOD UREA NITROGEN 4 MG/DL (7-18); CALCIUM LEVEL 7.8 MG/DL (8.8-10.2); CARBON DIOXIDE LEVEL 25 MEQ/L (21-32); CHLORIDE LEVEL 106 MEQ/L (98-107); CREATININE FOR GFR 0.51 MG/DL (0.55-1.02); GLOMERULAR FILTRATION RATE > 60.0 (>39); GLUCOSE, FASTING 283 MG/DL (83-110); POTASSIUM SERUM 3.5 MEQ/L (3.5-5.1); SODIUM LEVEL 140 MEQ/L (136-145)
[2017-01-29] MEDS: IPRATROPIUM 0.5MG/ALBUTEROL 2.5MG INH SOL UD 3ML (DUONEB)(J7620) INH SCH ×4 (07:11→20:36)
[2017-01-29] MEDS: guaiFENesin ER 600 MG TAB PO SCH ×2 (08:56→21:57)
[2017-01-29] MEDS: NICOTINE 14 MG/24 HR TRANSDERMAL TD SCH (08:56)
[2017-01-29] MEDS: ASPIRIN 81 MG ENTERIC TAB PO SCH (08:56)
[2017-01-29] MEDS: VITAMIN D 1,000 INTERNATIONAL UNITS TABLET PO SCH (08:56)
[2017-01-29] MEDS: VALPROIC ACID 250 MG CAP PO SCH ×3 (08:57→21:57)
[2017-01-29] MEDS: HYDROCORTISONE 10 MG TAB PO SCH ×2 (08:57→21:56)
[2017-01-29] MEDS: HumaLOG INSULIN (NovoLOG) PER UNIT SC SCH ×4 (08:57→21:00)
[2017-01-29] MEDS: amLODIPine 5 MG TAB PO SCH (08:59)
[2017-01-29] MEDS: METOPROLOL TART 25 MG TABLET PO SCH ×2 (08:59→21:58)
--- NOTE | 2017-01-29 09:47 | IPNPDOC ---
Subjective Date Seen The patient was seen on 01/29/17. Subjective Chief Complaint/HPI The patient is a 71-year-old female admitted with a reason for visit of Colitis, Hypokalemia. Events since last encounter no further diarrhea. no abdominal pain , tolerating regular diet, no fever or chills, no chest pain or sob , no cough or phlegm Objective Physical Examination General Exam: Positive: Alert, Cooperative, No Acute Distress Eye Exam: Positive: Conjunctiva & lids normal, EOMI, PERRLA, Negative: Sclera icteric ENT Exam: Positive: Atraumatic, Nares Patent, Pharynx Normal, Tongue Midline, Negative: Mucous membr. moist/pink Neck Exam: Positive: Other (trachea midline), Supple, Negative: JVD, Lymphadenopathy, thyromegaly Chest Exam: Positive: Clear to auscultation, Normal air movement Heart Exam: Positive: Normal S1, Normal S2, Rate Normal, Regular Rhythm, Negative: Murmurs, Rubs Abdomen Exam: Positive: BS Hypoactive, Soft, Negative: Hepatospenomegaly, Mass, Tenderness Extremity Exam: Positive: Normal pulses, Negative: Clubbing, Cyanosis, Edema, Swelling, Tenderness Skin Exam: Positive: Other skin issue (dry skin noted) Neuro Exam: Positive: Cranial Nerves 3-12 NL, Normal Speech, Strength at 5/5 X4 ext Assessment /Plan Problems (1) Colitis Status: Acute Problem Text: * CT of the abdomen and pelvis with IV contrast only reveals ileitis and colitis * will start pt on fiber diet * will chage to po cipro and flagyl * GI panel negative. (2) Hypokalemia Status: Resolved Problem Text: due to prolonged diarrhea. (3) Chronic obstructive pulmonary disease Status: Chronic Problem Text: * O2 saturation 97% on room air * Continue home breathing medications (4) Diabetes mellitus Status: Chronic Problem Text: * Continue patient on fingersticks before meals and at bedtime * Administer sliding scale insulin as needed (5) Adrenal insufficiency Status: Chronic Problem Text: * Likely secondary to chronic steroid use * Continue home dose of steroid (6) Tobacco abuse Status: Chronic Problem Text: Provide nicotine patch (7) Coronary artery disease Status: Chronic Problem Text: continue aspirin , statin and betablocker. (8) Seizure disorder Status: Chronic Problem Text: continue valproic acid (9) Hypertension Status: Chronic Problem Text: continue amlodipine, enalapril and metoprolol (10) Dyslipidemia Status: Chronic Problem Text: continue statin Plan/VTE VTE Prophylaxis Ordered?: Yes (TEDs and sequentials) Plan IVF: Initiate (KCl 40 in normal saline at 100 mLs per hour) Diet: Make NPO (may have ice chips) Activity: Continue Current (encourage ambulation) Diagnostics: Check Labs, Repeat Labs in AM Anticipated Discharge: Home VS, I&O, 24H, Fishbone Vital Signs/I&O Vital Signs Date Time Temp Pulse Resp B/P Pulse Ox O2 Delivery O2 Flow Rate FiO2 01/29/17 08:59 90 118/74 01/29/17 06:00 99.0 18 98 Room Air I&O- Last 24 Hours up to 6 AM 01/29/17 06:00 Intake Total 2080 ml Output Total 1850 ml Balance 230 ml Laboratory Data 24H LABS Laboratory Tests 2 01/28/17 17:17: Bedside Glucose (Misc Panel) 223H 01/28/17 20:17: Bedside Glucose (Misc Panel) 100 01/29/17 05:22: Anion Gap 9, Blood Urea Nitrogen 4L, Creatinine 0.51L, Sodium Level 140, Potassium Level 3.5, Chloride Level 106, Carbon Dioxide Level 25, Calcium Level 7.8L, Glomerular Filtration Rate > 60.0 CBC/BMP Laboratory Tests 01/29/17 05:22 Calcium Level 7.8 L, Red Blood Count 3.78 L, Mean Corpuscular Volume 102.5 H, Mean Corpuscular Hemoglobin 33.4 H, Mean Corpuscular Hemoglobin Concent 32.6, Red Cell Distribution Width 13.3 Microbiology Microbiology 01/27/17 Blood Culture - Preliminary, Resulted No Growth after 48 hours. All Specime... 01/27/17 Blood Culture - Preliminary, Resulted No Growth after 48 hours. All Specime... 01/27/17 Gastrointestinal Tract Panel (PCR) - Final, Complete DANII KIRKPATRICK MD Jan 29, 2017 09:46
[2017-01-29] MEDS: metroNIDAZOLE (FLAGYL) 500 MG TAB PO SCH ×3 (12:14→21:58)
[2017-01-29 15:00] VITALS: BP 135/72
[2017-01-29 16:50] VITALS: BP 147/76
[2017-01-29] MEDS: SIMVASTATIN 10 MG TAB PO SCH (18:26)
[2017-01-29] MEDS: ENALAPRIL MALEATE 10 MG TAB PO SCH (18:27)
[2017-01-29 20:00] VITALS: BP 149/77
[2017-01-30] VITALS: BP 124/64
[2017-01-30] MEDS: ACETAMINOPHEN TAB 650MG DOSE (2X325MG) PO PRN (00:02)
[2017-01-30] MEDS: IPRATROPIUM 0.5MG/ALBUTEROL 2.5MG INH SOL UD 3ML (DUONEB)(J7620) NEB PRN ×2 (00:14→09:38)
[2017-01-30] MEDS: CIPROFLOXACIN 500 MG TAB PO SCH (06:20)
[2017-01-30] MEDS ORDERED: CIPR500T89 PO (06:31)
[2017-01-30] MEDS ORDERED: FLAG500T PO (06:31)
[2017-01-30 06:45] LABS: MEAN CORPUSCULAR HEMOGLOBIN 33.6 pg (27.0-33.0); MEAN CORPUSCULAR HGB CONC 32.7 g/dl (32.0-36.5); MEAN CORPUSCULAR VOLUME 102.7 fl (80.0-96.0); RED CELL DISTRIBUTION WIDTH 13.2 % (11.5-14.5); WHITE BLOOD COUNT 9.1 K/mm3 (4.0-10.0)
[2017-01-30 07:04] LABS: ANION GAP 7 MEQ/L (8-16); BLOOD UREA NITROGEN 6 MG/DL (7-18); CALCIUM LEVEL 7.8 MG/DL (8.8-10.2); CARBON DIOXIDE LEVEL 28 MEQ/L (21-32); CHLORIDE LEVEL 107 MEQ/L (98-107); CREATININE FOR GFR 0.54 MG/DL (0.55-1.02); GLOMERULAR FILTRATION RATE > 60.0 (>39); GLUCOSE, FASTING 190 MG/DL (83-110); POTASSIUM SERUM 3.6 MEQ/L (3.5-5.1); SODIUM LEVEL 142 MEQ/L (136-145)
[2017-01-30] MEDS: IPRATROPIUM 0.5MG/ALBUTEROL 2.5MG INH SOL UD 3ML (DUONEB)(J7620) INH SCH (07:29)
[2017-01-30 07:30] VITALS: O2SAT 96
[2017-01-30 08:00] VITALS: BP 142/61
[2017-01-30] MEDS: NICOTINE 14 MG/24 HR TRANSDERMAL TD SCH (08:10)
[2017-01-30] MEDS: ASPIRIN 81 MG ENTERIC TAB PO SCH (08:11)
[2017-01-30] MEDS: VALPROIC ACID 250 MG CAP PO SCH (08:11)
[2017-01-30] MEDS: guaiFENesin ER 600 MG TAB PO SCH (08:11)
[2017-01-30] MEDS: HumaLOG INSULIN (NovoLOG) PER UNIT SC SCH (08:11)
[2017-01-30] MEDS: metroNIDAZOLE (FLAGYL) 500 MG TAB PO SCH (08:11)
[2017-01-30 08:12] VITALS: BP 124/64
[2017-01-30] MEDS: METOPROLOL TART 25 MG TABLET PO SCH (08:12)
[2017-01-30] MEDS: HYDROCORTISONE 10 MG TAB PO SCH (08:12)
[2017-01-30] MEDS: amLODIPine 5 MG TAB PO SCH (08:12)
[2017-01-30] MEDS: VITAMIN D 1,000 INTERNATIONAL UNITS TABLET PO SCH (08:12)
[2017-01-30] MEDS ORDERED: K-TA10TA2 PO (08:31)
--- NOTE | 2017-01-30 10:22 | DSES ---
DATE OF ADMISSION: 01/27/2017 DATE OF DISCHARGE: PRIMARY CARE PROVIDER: Dr. Caicedo DISCHARGE DIAGNOSES: 1. Acute colitis and ileitis. 2. Hypokalemia, resolved. 3. Chronic obstructive pulmonary disease (COPD), stable. 4. Diabetes. 5. Adrenal insufficiency. 6. Coronary artery disease. 7. Seizure disorder. 8. Hypertension. 9. Dyslipidemia. 10. Chronic tobacco use. 11. Diverticulosis of the sigmoid without any diverticulitis. 12. History of CVA. DISCHARGE MEDICATIONS: - ciprofloxacin 500 mg by mouth twice a day - metronidazole 500 mg by mouth three times a day - Tylenol 650 mg by mouth three times a day as needed for pain - albuterol sulfate inhaler two puff inhalation every 4 hours as needed for shortness of breath - albuterol ipratropium nebulizer solution, one solution every four hours as needed for shortness of breath - Fosamax 70 mg by mouth as directed - amlodipine 5 mg by mouth daily - aspirin 81 mg by mouth daily - cholecalciferol 2000 mg by mouth daily - Enalapril 20 mg by mouth at night - Breo Ellipta 100/25 one puff inhalation daily - hydrocortisone 20 mg tablet in the morning and 10 mg tablet at night - metformin 500 mg by mouth twice a day - metoprolol 25 mg by mouth twice a day - simvastatin 10 mg by mouth at bedtime - valproic acid 250 mg by mouth three times a day HOSPITALIZATION COURSE: This is a 71-year-old female who presented to the hospital for a 2 week history of diarrhea, watery several times a day with abdominal cramping and associated with bowel movements. It was initially felt to be related to Trulicity, which was recently started and diarrhea she felt started after that. It has been already stopped, however, the diarrhea persisted so she came to the hospital to be evaluated. In the hospital, she did have gastrointestinal panel done, which was negative. She had a CT of the abdomen and pelvis done, which showed that she had diffuse colitis, as well as terminal ileitis. She was empirically started on ciprofloxacin and metronidazole and responded to antibiotics with resolution of diarrhea. The patient was also noted to be hypokalemic on admission, which has been repleted with currently, with resolution of diarrhea, hypokalemia has also resolved. She did say that she had unintentional weight loss of about 40 lbs over the last 6 months, but did have colonoscopy in the past, which was negative. At present, the patient's diarrhea has resolved. THe patient is functioning at baseline. Vitals are stable and she is going to be discharged home in stable condition. PHYSICAL EXAMINATION: VITAL SIGNS: Pulse 81, blood pressure 124/64, pulse oximetry 96% on room air. Temperature 97.7. GENERAL: The patient is awake, alert, and oriented times three. Sitting up in bed in no acute distress. HEENT: Normocephalic, atraumatic. Moist mucous membranes. Anicteric eyes. CHEST: There is mild bilateral wheezing present. CARDIOVASCULAR: S1, S2 regular. ABDOMEN: Soft, nontender. Bowel sounds present. EXTREMITIES: No edema. LABORATORY DATA: WBC 9.1, hemoglobin 12.1, platelets 348. Sodium 142, potassium 3.6, chloride 107, bicarbonate 28, BUN 6, creatinine 0.5, glucose 190. Calcium 7.8. Blood culture with no growth after 72 hours. GI panel negative. Radiology: Abdominal and pelvis CT showed gallstone, inflammation and thickening of the galvez of the distal ileum, cecum, ascending colon compatible of ileitis and colitis. There is sigmoid diverticulosis without any evidence of diverticulitis. No small or large bowel obstruction. No intraabdominal ascites or lymphadenopathy. DISPOSITION: The patient is discharged home in stable condition. DISCHARGE INSTRUCTIONS: The patient is to followup with primary care provider in 2 to 3 weeks and advised high fiber diet. Activity as tolerated. MTDD
== END 2017-01-30 10:40 | disposition home or self-care (01) | DRG 392 ==
LOC: M ED 20:41 → M ED INP 01-27 01:56 → M PCU 01-27 02:55 → M MSPAV 01-28 14:42 → M PED 01-29 16:43
PROVIDERS: ADMIT Internal Medicine; ATTEND Internal Medicine Nephrology
DX: K52.9 Noninfective gastroenteritis and colitis, unspecified (principal); E27.40 Unspecified adrenocortical insufficiency; E87.6 Hypokalemia; J44.9 Chronic obstructive pulmonary disease, unspecified; E11.9 Type 2 diabetes mellitus without complications; K57.30 Diverticulosis of large intestine without perforation or abscess without bleeding; I25.10 Atherosclerotic heart disease of native coronary artery without angina pectoris; G40.909 Epilepsy, unspecified, not intractable, without status epilepticus; I10 Essential (primary) hypertension; F17.210 Nicotine dependence, cigarettes, uncomplicated; E78.5 Hyperlipidemia, unspecified; Z79.82 Long term (current) use of aspirin; Z79.84 Long term (current) use of oral hypoglycemic drugs; Z79.899 Other long term (current) drug therapy; Z86.73 Personal history of transient ischemic attack (TIA), and cerebral infarction without residual deficits; Z88.8 Allergy status to other drugs, medicaments and biological substances; Z90.710 Acquired absence of both cervix and uterus; Z83.3 Family history of diabetes mellitus; Z82.5 Family history of asthma and other chronic lower respiratory diseases; Z80.7 Family history of other malignant neoplasms of lymphoid, hematopoietic and related tissues; Z83.6 Family history of other diseases of the respiratory system

== ENCOUNTER → 2017-03-22 | Outpatient (CLI) | payer MEDICARE ==
[~2017-03-22] MED LIST changes: +BREO1INH INH; +FOSA70TA PO; +IPRASOL4 INH; +K-TA10TA2 PO; +NORC1TAB4 PO; -NORC5TAB PO; +VITA200015 PO
--- NOTE | 2017-03-22 13:39 | REPMRS ---
Patient History The patient states she has not had a clinical breast exam in over a year. Family history of prostate cancer in brother at age 50 or over. Benign excisional biopsy of the left breast, 1998. Took hormonal contraceptives for 5 years. Digital Woman Screen Mammo: March 22, 2017 - Exam #: [id number] Bilateral CC and MLO view(s) were taken. Technologist: Sharon Flores, Technologist Prior study comparison: March 20, 2016, digital woman screen mammo performed at [facility]. February 21, 2015, digital woman screen mammo performed at [facility]. FINDINGS: The breast tissue is heterogeneously dense. This may lower the sensitivity of mammography. There is a fairly symmetric fibroglandular pattern in both breasts. There has been no interval development of masses, areas of architectural distortion or clusters of microcalcifications typical of malignancy. No significant changes when compared with prior studies. ASSESSMENT: BI-RADS/ACR category 2 mammogram. Benign finding(s). Recommendation Routine screening mammogram of both breasts in 1 year (for women over age 40). This mammogram was interpreted with the aid of an FDA-approved computer-aided dectection system. Electronically Signed By: Ace Lester MD 03/22/17 [id number]
== END ==
LOC: M WHC 12:46
PROVIDERS: ATTEND Internal Medicine
DX: Z12.31 Encounter for screening mammogram for malignant neoplasm of breast (principal)

== ENCOUNTER → 2017-05-07 | Outpatient (REF) | payer MEDICARE ==
[~2017-05-07] MED LIST changes: -ATOR40TA PO; +ATOR40TA75 PO; -AVEL1TAB PO; +AVEL1TAB3 PO; +CIPR-249 PO; -CIPR500T89 PO; +LEVA1TAB2 PO; -LEVA500T PO; +METF500T13 PO; -METO12TA PO; +METO1TAB87 PO
[2017-05-07 17:27] LABS: IMMUNOGLOBULIN G 720 MG/DL (681-1648); IMMUNOGLOBULIN M 61.2 MG/DL (40-230); TOTAL PROTEIN 6.7 GM/DL (6.4-8.2)
[2017-05-08 14:06] LABS: ALBUMIN 3.99 GM/DL (3.29-5.55); ALBUMIN % 59.6 % (55.8-66.1)
== END ==
LOC: M LAB REF 16:38
PROVIDERS: ATTEND Internal Medicine
DX: D47.2 Monoclonal gammopathy (principal)

== ENCOUNTER → 2017-06-17 | Outpatient (CLI) | payer MEDICARE ==
[2017-06-17 15:05] LABS: ANION GAP 10 MEQ/L (8-16); BLOOD UREA NITROGEN 9 MG/DL (7-18); CARBON DIOXIDE LEVEL 27 MEQ/L (21-32); CHLORIDE LEVEL 105 MEQ/L (98-107); CREATININE FOR GFR 0.59 MG/DL (0.55-1.02); GLOMERULAR FILTRATION RATE > 60.0 (>39); GLUCOSE, FASTING 161 MG/DL (83-110); SODIUM LEVEL 142 MEQ/L (136-145)
--- NOTE | 2017-06-19 21:45 | ECGEPIP ---
Stationary ECG Study [facility] Test Date: 2017-06-17 Pat Name: MARCELINO FOWLER Department: Room: - Gender: F [employer] Hel[employer]: [facility] : 1945 Requested By: RAJAN Mccall Order Number: [id number] Reading MD: German Goodwin Measurements Intervals [place] Rate: 62 P: 83 MO: 163 QRS: 20 QRSD: 80 T: 114 QT: 427 QTc: 436 Interpretive Statements SINUS RHYTHM ANTEROSEPTAL MYOCARDIAL INFARCTION, OF INDETERMINATE AGE MODERATE T-WAVE ABNORMALITY, CONSIDER LATERAL ISCHEMIA COMPARED TO THE LAST 2 TRACINGS IN THE SYSTEM, NO SIGNIFICANT CHANGES BUT THERE WAS BETTER R WAVE PROGRESSION Electronically Signed On 06-19-2017 21:44:47 EDT by German Goodwin
== END ==
LOC: M LAB 13:34
PROVIDERS: ATTEND Ophthalmology
DX: Z01.818 Encounter for other preprocedural examination (principal); R94.31 Abnormal electrocardiogram [ECG] [EKG]; H26.9 Unspecified cataract

== ENCOUNTER 2017-07-22 11:58 | Outpatient (CLI) | payer MEDICARE ==
[~2017-07-22] VITALS: Ht 152.4 cm; Wt 57.6 kg
[2017-07-22] MEDS ORDERED: NS 1,000 ML IV ONE (12:15)
[2017-07-22] MEDS ORDERED: PROPOFOL 200 MG/20 ML VIAL As Ordered ONE ×2 (12:49→13:06)
--- NOTE | 2017-07-22 13:10 | ROOR ---
Patient Name: Laura Solano Procedure Date: 07/22/2017 12:41 PM Date of : 1945 Age: 72 Room: [facility] Gender: Female Note Status: Finalized Procedure: Total Colonoscopy to Cecum + Cold Snare Polypectomy + Hemoclips Indications: Clinically significant diarrhea of unexplained origin, Abnormal CT of the GI tract, Weight loss Providers: Red Fan MD Referring MD: LUKE CHANG JR, MD Requesting Provider: Medicines: Monitored Anesthesia Care Complications: No immediate complications. Procedure: Pre-Anesthesia Assessment: - The heart rate, respiratory rate, oxygen saturations, blood pressure, adequacy of pulmonary ventilation, and response to care were monitored throughout the procedure. The Colonoscope was introduced through the anus and advanced to the cecum, identified by appendiceal orifice and ileocecal valve. The colonoscopy was performed without difficulty. The patient tolerated the procedure well. The quality of the bowel preparation was excellent. Findings: The perianal and digital rectal examinations were normal. Non-bleeding internal hemorrhoids were found during retroflexion. The hemorrhoids were small and Grade I (internal hemorrhoids that do not prolapse). Multiple small and large-mouthed diverticula were found in the recto-sigmoid colon, sigmoid colon and descending colon. Multiple small and large-mouthed diverticula were found in the recto-sigmoid colon, sigmoid colon and descending colon. Multiple sessile polyps were found in the ascending colon. The polyps were medium in size. These polyps were removed with a cold snare. Resection and retrieval were complete. To prevent bleeding after the polypectomy, four hemostatic clips were successfully placed (MR conditional). There was no bleeding at the end of the procedure. The exam was otherwise without abnormality on direct and retroflexion views. Impression: - Non-bleeding internal hemorrhoids. - Diverticulosis in the recto-sigmoid colon, in the sigmoid colon and in the descending colon. - Diverticulosis in the recto-sigmoid colon, in the sigmoid colon and in the descending colon. - Multiple medium polyps in the ascending colon, removed with a cold snare. Resected and retrieved. Clips (MR conditional) were placed. - The examination was otherwise normal on direct and retroflexion views. - The exam was otherwise normal to the cecum. Recommendation: - Patient has a contact number available for emergencies. The signs and symptoms of potential delayed complications were discussed with the patient. Return to normal activities tomorrow. Written discharge instructions were provided to the patient. - High fiber diet. - Discharge patient to home. - Continue present medications. - Await pathology results. - Telephone GI clinic for pathology results in 1 week. - Repeat colonoscopy for surveillance based on pathology results. - Return to referring physician. - The findings and recommendations were discussed with the patient's family. Red Fan MD Red Fan MD 07/22/2017 1:10:19 PM This report has been signed electronically. Number of Addenda: 0 Note Initiated On: 07/22/2017 12:41 PM Estimated Blood Loss: Estimated blood loss: none.
[2017-07-22 13:40] VITALS: BP 110/65
== END 2017-07-22 13:42 | disposition home or self-care (01) ==
LOC: M OPP 11:58
PROVIDERS: ATTEND Internal Medicine Gastroenterology
DX: R93.3 Abnormal findings on diagnostic imaging of other parts of digestive tract (principal); R63.4 Abnormal weight loss; R19.7 Diarrhea, unspecified; D12.2 Benign neoplasm of ascending colon; K64.0 First degree hemorrhoids; K57.30 Diverticulosis of large intestine without perforation or abscess without bleeding; I10 Essential (primary) hypertension; E78.5 Hyperlipidemia, unspecified; I34.9 Nonrheumatic mitral valve disorder, unspecified; R01.1 Cardiac murmur, unspecified; E11.9 Type 2 diabetes mellitus without complications; K52.9 Noninfective gastroenteritis and colitis, unspecified; R23.3 Spontaneous ecchymoses; Z86.69 Personal history of other diseases of the nervous system and sense organs; I63.9 Cerebral infarction, unspecified; Z86.73 Personal history of transient ischemic attack (TIA), and cerebral infarction without residual deficits; J45.909 Unspecified asthma, uncomplicated; J44.9 Chronic obstructive pulmonary disease, unspecified; G47.30 Sleep apnea, unspecified; R06.83 Snoring; R06.02 Shortness of breath; F17.210 Nicotine dependence, cigarettes, uncomplicated; Z88.8 Allergy status to other drugs, medicaments and biological substances; Z79.82 Long term (current) use of aspirin; Z79.899 Other long term (current) drug therapy; Z79.84 Long term (current) use of oral hypoglycemic drugs; Z80.42 Family history of malignant neoplasm of prostate

== ENCOUNTER 2017-07-25 10:24 | Day surgery (SDC) | payer MEDICARE ==
[~2017-07-25] VITALS: Ht 152.4 cm; Wt 57.2 kg
[~2017-07-25 10:24] MED LIST changes: +ACETYLCHOLINE OPHTH SOLN 1% 2ML (MIOCHOL-E) As Ordered ONE; +BALANCED SALT IRRIGATION SOLUTION 500ML BAG (FOR OR EYE MACHINE) As Ordered ONE; +DUOVISC (0.50ML VISCOAT/0.55ML PROVISC) OPHTH KIT As Ordered ONE; +LIDOCAINE 0.75%/EPINEPHRINE 0.025% IN BSS 1ML SYR INTRACAMERAL (OR ONLY) As Ordered ONE; +OFLOXACIN 0.3 % (OCUFLOX) OPTH SOL 5ML OD ONE; +PHENYLEPHRINE 2.5% OPHTH SOL 2ML OD ONE; +POVIDONE-IODINE 5% OPHTH PREP SOL 30ML As Ordered ONE; +PROPARACAINE 0.5% OPHTH SOL 15ML OD ONE; +TROPICAMIDE 1% OPHTH SOLN 2ML OD ONE
[2017-07-25] MEDS ORDERED: LR 1,000 ML IV SCH (10:45)
[2017-07-25] MEDS ORDERED: CEFUROXIME 1MG/0.1ML INTRACAMERAL INJ As Ordered ONE (11:39)
[2017-07-25] MEDS ORDERED: MIDAZOLAM INJ 2 MG/2 ML VIAL (J2250) As Ordered ONE (11:52)
[2017-07-25] MEDS ORDERED: fentaNYL 100 MCG/2 ML INJECTION (J3010) As Ordered ONE (11:59)
[2017-07-25] MEDS: POVIDONE-IODINE 5% OPHTH PREP SOL 30ML As Ordered ONE ×2 (12:02→12:19)
[2017-07-25 13:10] VITALS: BP 128/72
--- NOTE | 2017-07-25 19:37 | RO ---
DATE OF PROCEDURE: 07/25/2017 PREOPERATIVE DIAGNOSIS: Visually significant nuclear sclerotic cataract right eye. POSTOPERATIVE DIAGNOSIS: Visually significant nuclear sclerotic cataract right eye. PROCEDURE: Cataract extraction with use of phacoemulsification, and placement of intraocular lens, AU00T0 19.5D , right eye. SURGEON: Angus Fan DO THEATER USHER: ANESTHESIA: Local with monitored anesthesia care (MAC). COMPLICATIONS: None. POSTOPERATIVE CONDITION: Stable. INDICATION FOR SURGERY: Blurred vision right eye affecting patient's activities of daily living. DESCRIPTION OF PROCEDURE: The patient was seen in the preoperative area and properly identified. The correct operative eye was identified and marked. Attention was turned to that eye. The patient received topical antibiotics in the preoperative area. The patient then received topical dilating drops consisting of Tropicamide and Phenylephrine. The patient was then transferred to the operating room. The correct side was re-identified. The patient received topical anesthetics and antibiotics on the surface of the eye. The eye was prepped and draped in a sterile fashion. The upper and lower eyelids were isolated with Tegaderm tape, and the lids were held open with an adjustable speculum. Using a sideport blade, a paracentesis incision was made. Intraocular preservative-free lidocaine was then injected into the anterior chamber. Viscoelastic was then injected into the anterior chamber through the paracentesis. Using a 2.4 mm sharp-tipped keratome, the anterior chamber was entered via a temporal clear corneal incision. A continuous curvilinear capsulorrhexis was created with the aid of a 26g cystotome and utrata forceps. Hydrodissection was performed with balanced salt solution (BSS) on a blunt cannula until the nucleus was freely mobile. The crystalline lens was phacoemulsified and aspirated. Additional cohesive viscoelastic was placed into the capsular bag to deepen it. An AU00T0 19.5 lens D was placed into the capsular bag and confirmed by visualizing the continuous curvilinear capsulorrhexis. Additional irrigation and aspiration was used to remove cortical material and remaining viscoelastic. The clear corneal incision was hydrated with BSS on a blunt cannula. The lens was well positioned. The incisions were then tested for leaks and found to be negative. The eye was then palpated for appropriate pressure and adjusted accordingly with BSS. The eyelid speculum was carefully removed. A shield was placed. . The patient tolerated the procedure well and was discharged to the recovery unit in a stable condition. MTDD
== END 2017-07-25 13:10 | disposition home or self-care (01) ==
LOC: M SDC 10:24
PROVIDERS: ATTEND Ophthalmology
DX: H25.11 Age-related nuclear cataract, right eye (principal); I25.10 Atherosclerotic heart disease of native coronary artery without angina pectoris; I10 Essential (primary) hypertension; E11.9 Type 2 diabetes mellitus without complications; I25.2 Old myocardial infarction; F17.210 Nicotine dependence, cigarettes, uncomplicated; E78.5 Hyperlipidemia, unspecified; Z79.82 Long term (current) use of aspirin; Z79.899 Other long term (current) drug therapy
CPT/HCPCS: 66984; J2250; J3010; V2632

== ENCOUNTER 2017-08-08 09:26 | Day surgery (SDC) | payer MEDICARE ==
[~2017-08-08] VITALS: Ht 152.4 cm; Wt 57.2 kg
[~2017-08-08 09:26] MED LIST changes: +ACETAMINOPHEN 325 MG TAB PO PRN; +CEFUROXIME 1MG/0.1ML INTRACAMERAL INJ As Ordered ONE; +MIDAZOLAM INJ 2 MG/2 ML VIAL (J2250) As Ordered ONE; -OFLOXACIN 0.3 % (OCUFLOX) OPTH SOL 5ML OD ONE; +OFLOXACIN 0.3 % (OCUFLOX) OPTH SOL 5ML OS ONE; -PHENYLEPHRINE 2.5% OPHTH SOL 2ML OD ONE; +PHENYLEPHRINE 2.5% OPHTH SOL 2ML OS ONE; -PROPARACAINE 0.5% OPHTH SOL 15ML OD ONE; +PROPARACAINE 0.5% OPHTH SOL 15ML OS ONE; -TROPICAMIDE 1% OPHTH SOLN 2ML OD ONE; +TROPICAMIDE 1% OPHTH SOLN 2ML OS ONE; +fentaNYL 100 MCG/2 ML INJECTION (J3010) As Ordered ONE
[2017-08-08] MEDS ORDERED: LR 500 ML IV ONE (10:00)
[2017-08-08] MEDS ORDERED: SPIR25TA2 PO (10:09)
[2017-08-08 11:28] VITALS: BP 153/70
[2017-08-08] MEDS ORDERED: LR 1,000 ML IV SCH (11:45)
[2017-08-08] MEDS ORDERED: ONDANSETRON 4MG/2ML VIAL (J2405) IV PRN (11:45)
[2017-08-08] MEDS ORDERED: TRIMETHOBENZAMIDE 300 MG CAP PO PRN (11:45)
--- NOTE | 2017-08-08 15:37 | RO ---
DATE OF SURGERY: 08/08/2017 PREOPERATIVE DIAGNOSIS: Visually significant nuclear sclerotic cataract, left eye. POSTOPERATIVE DIAGNOSIS: Visually significant nuclear sclerotic cataract, left eye. PROCEDURE: Cataract extraction with use of phacoemulsification, and placement of intraocular lens, AU00T0 19.0, left eye. SURGEON: Angus Fan DO SQUAD SERGEANT: ANESTHESIA: Local with monitored anesthesia care (MAC). COMPLICATIONS: None. POSTOPERATIVE CONDITION: Stable. INDICATION FOR SURGERY: Blurred vision, right eye, affecting patient's activities of daily living. DESCRIPTION OF PROCEDURE: The patient was seen in the preoperative area and properly identified. The correct operative eye was identified and marked. Attention was turned to that eye. The patient received topical antibiotics in the preoperative area. The patient then received topical dilating drops consisting of Tropicamide and Phenylephrine. The patient was then transferred to the operating room. The correct side was re-identified. The patient received topical anesthetics and antibiotics on the surface of the eye. The eye was prepped and draped in a sterile fashion. The upper and lower eyelids were isolated with Tegaderm tape, and the lids were held open with an adjustable speculum. Using a sideport blade, a paracentesis incision was made. Intraocular preservative-free lidocaine was then injected into the anterior chamber. Viscoelastic was then injected into the anterior chamber through the paracentesis. Using a 2.4 mm sharp-tipped keratome, the anterior chamber was entered via a temporal clear corneal incision. A continuous curvilinear capsulorrhexis was created with the aid of a 26g cystotome and Utrata forceps. Hydrodissection was performed with balanced salt solution (BSS) on a blunt cannula until the nucleus was freely mobile. The crystalline lens was phacoemulsified and aspirated. Additional cohesive viscoelastic was placed into the capsular bag to deepen it. AU00T0, 19.0 lens D was placed into the capsular bag and confirmed by visualizing the continuous curvilinear capsulorrhexis. Additional irrigation and aspiration was used to remove cortical material and remaining viscoelastic. The clear corneal incision was hydrated with BSS on a blunt cannula. The lens was well positioned. The incisions were then tested for leaks and found to be negative. The eye was then palpated for appropriate pressure and adjusted accordingly with BSS. The eyelid speculum was carefully removed. A shield was placed. The patient tolerated the procedure well and was discharged to the recovery unit in a stable condition. GWEN
== END 2017-08-08 11:50 | disposition home or self-care (01) ==
LOC: M SDC 09:26
PROVIDERS: ATTEND Ophthalmology
DX: H25.12 Age-related nuclear cataract, left eye (principal); I25.10 Atherosclerotic heart disease of native coronary artery without angina pectoris; I25.2 Old myocardial infarction; I10 Essential (primary) hypertension; E78.5 Hyperlipidemia, unspecified; E11.9 Type 2 diabetes mellitus without complications; Z79.899 Other long term (current) drug therapy; Z86.73 Personal history of transient ischemic attack (TIA), and cerebral infarction without residual deficits; Z88.8 Allergy status to other drugs, medicaments and biological substances; Z87.891 Personal history of nicotine dependence
CPT/HCPCS: 66984; J2250; J3010; V2632

== ENCOUNTER → 2018-01-24 | Outpatient (REF) | payer MEDICARE ==
[2018-01-24 12:50] LABS: IMMUNOGLOBULIN G 703 MG/DL (681-1648); IMMUNOGLOBULIN M 63.9 MG/DL (40-230); TOTAL PROTEIN 6.4 GM/DL (6.4-8.2)
[2018-01-28 08:49] LABS: ALBUMIN 3.65 GM/DL (3.29-5.55); ALPHA-1-GLOBULIN % 5.8 % (2.9-4.9); ALPHA-1-GLOBULINS 0.37 GM/DL (0.17-0.41); BETA-1-GLOBULINS 0.44 GM/DL (0.28-0.60); BETA-1-GLOBULINS % 6.9 % (4.7-7.2); BETA-2-GLOBULINS 0.34 GM/DL (0.19-0.55); BETA-2-GLOBULINS % 5.3 % (3.2-6.5)
== END ==
LOC: M LAB REF 12:01
DX: D47.2 Monoclonal gammopathy (principal)

== ENCOUNTER → 2018-01-24 | Outpatient (CLI) | payer MEDICARE | LOC: M WUC 11:21 | DX: M85.831 Other specified disorders of bone density and structure, right forearm (principal); M19.021 Primary osteoarthritis, right elbow; D47.2 Monoclonal gammopathy | CPT/HCPCS: 84165 ==

== ENCOUNTER → 2018-03-25 | Outpatient (CLI) | payer MEDICARE | LOC: M WHC 11:01 | DX: Z12.31 Encounter for screening mammogram for malignant neoplasm of breast (principal) | CPT/HCPCS: 77067 ==

== ENCOUNTER 2018-06-08 03:53 | Emergency (ER) | payer MEDICARE ==
[2018-06-08] MEDS: MORPHINE 2 MG/ML 1ML SYRINGE (J2270) IV (06:14)
[2018-06-08] MEDS: ONDANSETRON 4MG/2ML VIAL (J2405) IV (06:14)
[2018-06-08] MEDS ORDERED: ISOVUE-370 76% 100ML VIAL (Q9967) As Ordered (06:25)
[2018-06-08 06:34] LABS: BASO # 0.1 10^3/uL (0.0-0.2); BASO % 0.8 % (0.0-1.0); EOS # 0.4 10^3/uL (0.0-0.50); EOS % 2.4 % (0.0-3.0); HEMATOCRIT 40.2 % (36.0-47.0); IMMATURE GRANULOCYTE % 0.9 % (0-3.0); LYMPH # 3.4 10^3/uL (1.5-4.5); LYMPH % 22.7 % (24.0-44.0); MEAN CORPUSCULAR HEMOGLOBIN 31.7 pg (27.0-33.0); MEAN CORPUSCULAR HGB CONC 34.8 g/dl (32.0-36.5); MEAN CORPUSCULAR VOLUME 91.2 fl (80.0-96.0); MONO # 1.4 10^3/uL (0.0-0.8); MONO % 9.7 % (0.0-5.0); NEUTROPHILS # 9.5 10^3/uL (1.8-7.7); NEUTROPHILS % 63.5 % (36.0-66.0); PLATELET COUNT, AUTOMATED 352 10^3/uL (150-450); RED BLOOD COUNT 4.41 10^6/uL (4.00-5.40); RED CELL DISTRIBUTION WIDTH 12.7 % (11.5-14.5); WHITE BLOOD COUNT 14.9 10^3/uL (4.0-10.0)
[2018-06-08 06:50] LABS: ALBUMIN 3.8 GM/DL (3.2-5.2); ALBUMIN/GLOBULIN RATIO 1.15 (1.00-1.93); ALKALINE PHOSPHATASE 45 U/L (45-117); ALT/SGPT 15 U/L (12-78); AMYLASE 50 U/L (25-115); ANION GAP 8 MEQ/L (8-16); AST/SGOT 10 U/L (7-37); BILIRUBIN,DIRECT < 0.1 MG/DL (0.0-0.2); BILIRUBIN,TOTAL 0.5 MG/DL (0.2-1.0); BLOOD UREA NITROGEN 21 MG/DL (7-18); CALCIUM LEVEL 8.3 MG/DL (8.8-10.2); CARBON DIOXIDE LEVEL 25 MEQ/L (21-32); CHLORIDE LEVEL 96 MEQ/L (98-107); CREATININE FOR GFR 1.04 MG/DL (0.55-1.30); GLOMERULAR FILTRATION RATE 55.1 (>39); GLUCOSE, FASTING 153 MG/DL (70-100); LIPASE 112 U/L (73-393); POTASSIUM SERUM 4.9 MEQ/L (3.5-5.1); SODIUM LEVEL 129 MEQ/L (136-145); TOTAL PROTEIN 7.1 GM/DL (6.4-8.2)
[2018-06-08 07:50] LABS: KETONE, URINE AUTO RFX NEGATIVE (NEGATIVE); NITRITE, URINE AUTO RFX NEGATIVE (NEGATIVE); RBC, URINE AUTO RFX 1 /HPF (0-3); SPECIFIC GRAVITY UR AUTO RFX 1.023 (1.002-1.035); SQUAM EPITHELIAL CELL UR AURFX 0 /HPF (0-6); WBC, URINE AUTO RFX 1 /HPF (0-3)
[2018-06-08 08:27] LABS: LEUKOCYTE ESTERASE UR AUTO RFX TRACE (NEGATIVE)
== END 2018-06-08 08:15 | disposition home or self-care (01) ==
LOC: M ED 03:53
DX: K52.9 Noninfective gastroenteritis and colitis, unspecified (principal); K57.30 Diverticulosis of large intestine without perforation or abscess without bleeding; I25.2 Old myocardial infarction; E11.9 Type 2 diabetes mellitus without complications; I10 Essential (primary) hypertension; Z86.73 Personal history of transient ischemic attack (TIA), and cerebral infarction without residual deficits; J44.9 Chronic obstructive pulmonary disease, unspecified; R06.02 Shortness of breath; G89.29 Other chronic pain; M54.9 Dorsalgia, unspecified; Z72.0 Tobacco use
CPT/HCPCS: J2405

== ENCOUNTER 2018-07-10 12:26 | Emergency (ER) | payer MEDICARE ==
[2018-07-10] MEDS: NORCO, ANEXSIA 5/325MG TABLET (HYDROcodone/ACETAMINOPHEN) PO (12:56)
[2018-07-10] MEDS: BACLOFEN 10 MG TAB PO (14:17)
== END 2018-07-10 14:43 | disposition home or self-care (01) ==
LOC: M ED 12:26
DX: S23.41XA Sprain of ribs, initial encounter (principal); X58.XXXA Exposure to other specified factors, initial encounter; Y92.018 Other place in single-family (private) house as the place of occurrence of the external cause; J44.9 Chronic obstructive pulmonary disease, unspecified; E11.9 Type 2 diabetes mellitus without complications; I10 Essential (primary) hypertension; E78.5 Hyperlipidemia, unspecified; I25.2 Old myocardial infarction; Z86.73 Personal history of transient ischemic attack (TIA), and cerebral infarction without residual deficits; Z86.19 Personal history of other infectious and parasitic diseases; F17.210 Nicotine dependence, cigarettes, uncomplicated
CPT/HCPCS: 71101

== ENCOUNTER 2018-09-28 20:53 | Emergency (ER) | payer MEDICARE ==
[2018-09-28] MEDS ORDERED: ADENOSINE 6MG/2ML INJECTION (J0153) As Ordered (21:14)
[2018-09-28] MEDS: ADENOSINE 6MG/2ML INJECTION (J0153) IV ×2 (21:19→21:48)
[2018-09-28] MEDS: METOPROLOL 5 MG/5 ML VIAL IV (21:48)
[2018-09-28 21:56] LABS: HEMATOCRIT 41.6 % (36.0-47.0); MEAN CORPUSCULAR HEMOGLOBIN 32.5 pg (27.0-33.0); MEAN CORPUSCULAR HGB CONC 33.7 g/dl (32.0-36.5); MEAN CORPUSCULAR VOLUME 96.5 fl (80.0-96.0); PLATELET COUNT, AUTOMATED 527 10^3/uL (150-450); RED BLOOD COUNT 4.31 10^6/uL (4.00-5.40); RED CELL DISTRIBUTION WIDTH 13.9 % (11.5-14.5)
[2018-09-28 22:03] LABS: ADD MANUAL DIFFER YES; DIFF SLIDE NUMBER 141; POSITIVE DIFF POS FLAG; WHITE BLOOD COUNT 18.6 10^3/uL (4.0-10.0)
[2018-09-28 22:04] LABS: ANION GAP 8 MEQ/L (8-16); BLOOD UREA NITROGEN 15 MG/DL (7-18); CARBON DIOXIDE LEVEL 25 MEQ/L (21-32); CHLORIDE LEVEL 108 MEQ/L (98-107); CREATININE FOR GFR 1.16 MG/DL (0.55-1.30); GLOMERULAR FILTRATION RATE 48.6 (>39); GLUCOSE, FASTING 173 MG/DL (70-100); MAGNESIUM LEVEL 1.5 MG/DL (1.8-2.4); POTASSIUM SERUM 4.9 MEQ/L (3.5-5.1); SODIUM LEVEL 141 MEQ/L (136-145)
[2018-09-28 23:03] LABS: ATYPICAL LYMPH 2 % (0-5); BASOPHILS 1 % (0-4); EOSINOPHILS 2 % (0-5); LYMPHOCYTES 31 % (16-52); MONOCYTES 9 % (0-8); NEUTROPHILS 55 % (35-75); PLATELET ESTIMATE INCREASED (NORMAL)
[2018-09-28] MEDS: MAGNESIUM OXIDE 400 MG TAB (MAG-OX) PO (23:15)
[2018-09-28] MEDS: dexameTHASONE 20 MG/5 ML VIAL (J1100) IV (23:15)
[2018-09-28] MEDS: NS 500 ML IV (23:15)
[2018-09-29 01:22] LABS: CPK CREATINE PHOSPHOKINASE 108 U/L (26-192); MB/CK RELATIVE INDEX 1.76 (< OR =4); TROPONIN I < 0.02 NG/ML (< 0.10)
== END 2018-09-29 01:50 | disposition home or self-care (01) ==
LOC: M ED 09-29 01:50
DX: I47.1 Supraventricular tachycardia (principal); E83.42 Hypomagnesemia; J44.9 Chronic obstructive pulmonary disease, unspecified; E11.9 Type 2 diabetes mellitus without complications; I10 Essential (primary) hypertension; G43.909 Migraine, unspecified, not intractable, without status migrainosus; Z79.899 Other long term (current) drug therapy; Z79.84 Long term (current) use of oral hypoglycemic drugs; Z79.82 Long term (current) use of aspirin; Z88.8 Allergy status to other drugs, medicaments and biological substances; F17.210 Nicotine dependence, cigarettes, uncomplicated
CPT/HCPCS: J1100

== ENCOUNTER 2018-11-22 20:31 | Emergency (ER) | payer MEDICARE ==
[~2018-11-22] VITALS: Ht 152.4 cm; Wt 61.8 kg
[~2018-11-22 20:31] MED LIST changes: -ACETAMINOPHEN 325 MG TAB PO PRN; -ACETYLCHOLINE OPHTH SOLN 1% 2ML (MIOCHOL-E) As Ordered ONE; +AMLO5TAB6 PO; +AUGM500T34 PO; -BALANCED SALT IRRIGATION SOLUTION 500ML BAG (FOR OR EYE MACHINE) As Ordered ONE; +BENT10CA PO; +BREO1INH3 INH; -CEFUROXIME 1MG/0.1ML INTRACAMERAL INJ As Ordered ONE; +CYCL5TAB PO; -DUOVISC (0.50ML VISCOAT/0.55ML PROVISC) OPHTH KIT As Ordered ONE; +IPRA0.00 INH; -IPRASOL4 INH; -LIDOCAINE 0.75%/EPINEPHRINE 0.025% IN BSS 1ML SYR INTRACAMERAL (OR ONLY) As Ordered ONE; +MAGN400C PO; +METF-877 PO; -MIDAZOLAM INJ 2 MG/2 ML VIAL (J2250) As Ordered ONE; +NORCOTAB PO; -OFLOXACIN 0.3 % (OCUFLOX) OPTH SOL 5ML OS ONE; -PHENYLEPHRINE 2.5% OPHTH SOL 2ML OS ONE; -POVIDONE-IODINE 5% OPHTH PREP SOL 30ML As Ordered ONE; -PROPARACAINE 0.5% OPHTH SOL 15ML OS ONE; +ROPI0.5T; +ROPI1TAB PO; +SPIR-10 PO; -SPIR25TA2 PO; -TROPICAMIDE 1% OPHTH SOLN 2ML OS ONE; +VENTAER INH; -fentaNYL 100 MCG/2 ML INJECTION (J3010) As Ordered ONE
[2018-11-22] MEDS ORDERED: ADENOSINE 6MG/2ML INJECTION (J0153) As Ordered ONE (20:48)
[2018-11-22] MEDS ORDERED: NS 1,000 ML IV ONE ×2 (21:00→21:45)
[2018-11-22 21:04] LABS: HEMATOCRIT 43.7 % (36.0-47.0); HEMOGLOBIN 14.3 g/dl (12.0-15.5); MEAN CORPUSCULAR HEMOGLOBIN 32.5 pg (27.0-33.0); MEAN CORPUSCULAR HGB CONC 32.7 g/dl (32.0-36.5); MEAN CORPUSCULAR VOLUME 99.3 fl (80.0-96.0); PLATELET COUNT, AUTOMATED 471 10^3/uL (150-450)
[2018-11-22 21:16] LABS: WHITE BLOOD COUNT 18.8 10^3/uL (4.0-10.0)
[2018-11-22 21:23] LABS: BLOOD UREA NITROGEN 15 MG/DL (7-18); CALCIUM LEVEL 8.5 MG/DL (8.8-10.2); CARBON DIOXIDE LEVEL 21 MEQ/L (21-32); CHLORIDE LEVEL 107 MEQ/L (98-107); CPK CREATINE PHOSPHOKINASE 48 U/L (26-192); CREATININE FOR GFR 1.09 MG/DL (0.55-1.30); GLOMERULAR FILTRATION RATE 52.2 (>39); GLUCOSE, FASTING 334 MG/DL (70-100); MAGNESIUM LEVEL 1.9 MG/DL (1.8-2.4); MB/CK RELATIVE INDEX 3.75 (< OR =4); POTASSIUM SERUM 5.2 MEQ/L (3.5-5.1); SODIUM LEVEL 136 MEQ/L (136-145); TROPONIN I < 0.02 NG/ML (< 0.10)
[2018-11-22 21:37] LABS: ATYPICAL LYMPH 16 % (0-5); LYMPHOCYTES 17 % (16-52); MONOCYTES 9 % (0-8); NEUTROPHILS 58 % (35-75); PLATELET CLUMPS SMALL AMT; PLATELET ESTIMATE INCREASED (NORMAL); TOXIC VACUOLATION 1+
[2018-11-22 21:39] LABS: MICROCYTOSIS 1+
[2018-11-22] MEDS ORDERED: fentaNYL 100 MCG/2 ML INJECTION (J3010) IV ONE (21:45)
[2018-11-22] MEDS ORDERED: LORazepam 2 MG/ML VIAL (J2060) IV STA (23:19)
[2018-11-22] MEDS ORDERED: ISOVUE-370 76% 100ML VIAL (Q9967) As Ordered ONE (23:27)
[2018-11-23 00:17] LABS: MB/CK RELATIVE INDEX 5.56 (< OR =4); TROPONIN I 0.05 NG/ML (< 0.10)
--- NOTE | 2018-11-23 00:41 | REPVR ---
EXAM: CT Angiography Chest With Contrast EXAM DATE/TIME: 11/22/2018 12:12 AM CLINICAL HISTORY: 73 years old, female; Pain; Chest pain; Type not specified; Additional info: Chest pain, back pain TECHNIQUE: Axial computed tomographic angiography images of the chest with intravenous contrast using CT angiography protocol. All CT scans at this facility use at least one of these dose optimization techniques: automated exposure control; mA and/or kV adjustment per patient size (includes targeted exams where dose is matched to clinical indication); or iterative reconstruction. Coronal and sagittal reformatted images were created and reviewed. MIP reconstructed images were created and reviewed. CONTRAST: 100 ml of ISOVUE 370 administered intravenously. COMPARISON: CT ANGIO CHEST 10/11/2014 11:07 AM FINDINGS: Pulmonary arteries: The main pulmonary artery measures 32 mm. No pulmonary embolism is identified. Aorta: The ascending thoracic aorta measures 32 mm. Lungs: Minimal bibasilar atelectasis or scar. Pleural space: Normal. No pneumothorax. No pleural effusion. Heart: Normal. No cardiomegaly. No pericardial effusion. Lymph nodes: Unremarkable. No enlarged lymph nodes. Bones/joints: Compression of T6 and T7 which appear to be chronic. Residua of old left humeral fracture. Soft tissues: Subcutaneous nodule in the mid anterior chest wall at the left aspect of the sternum measuring 2.5 x 1.7 x 2.5 cm consistent with a sebaceous cyst. IMPRESSION: 1. Residua of old left humeral fracture. 2. Anterior chest wall sebaceous cyst. 3. Otherwise negative CTA chest. No pulmonary embolism is identified. Electronically signed by: Rivas Castillo On 11/23/2018 00:41:02 AM
[2018-11-23 01:30] VITALS: BP 92/55
[2018-11-23] MEDS ORDERED: LORazepam 2 MG/ML VIAL (J2060) IV STA (01:45)
--- NOTE | 2018-11-23 08:47 | ECGEPIP ---
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
--- NOTE | 2018-11-23 08:50 | ECGEPIP ---
Stationary ECG Study [facility] - ED Test Date: 2018-11-22 Pat Name: MARCELINO FOWLER Department: Room: - Gender: F Subscription Crew Leader: : 1945 Requested By: RAJAN Cole Order Number: [id number] Reading MD: Karen Oconnell Measurements Intervals [place] Rate: 87 P: 64 OR: 154 QRS: 25 QRSD: 89 T: 117 QT: 350 QTc: 421 Interpretive Statements SINUS RHYTHM NONSPECIFIC ST & T-WAVE ABNORMALITY 20:40 SVT Electronically Signed On 11-23-2018 8:49:56 EST by Karen Oconnell
--- NOTE | 2018-11-23 08:54 | REP ---
Portable chest x-ray: Single view. History: Chest pain. Comparison study: September 28, 2018. Findings: The lungs are well inflated and clear. The pleural angles are sharp. Heart size is normal. The aorta is calcific. There is old post-traumatic deformity in the proximal humerus on the left. EKG monitoring electrodes are visible. Impression: No acute disease. Electronically Signed by Mauricio Mcrae MD 11/23/2018 08:45 A
== END 2018-11-23 02:05 | disposition home or self-care (01) ==
LOC: M ED 20:31
DX: I47.1 Supraventricular tachycardia (principal); R06.02 Shortness of breath; F17.210 Nicotine dependence, cigarettes, uncomplicated; Z88.8 Allergy status to other drugs, medicaments and biological substances; Z79.899 Other long term (current) drug therapy; Z79.82 Long term (current) use of aspirin; Z79.84 Long term (current) use of oral hypoglycemic drugs; Z79.51 Long term (current) use of inhaled steroids
CPT/HCPCS: 71045; 71275; 80048; 82550; 82553; 83735; 84439; 84443; 84484; 85025; 93005; 93041; 94760; 96374; 96375; 96376; 99285; J2060; J3010; Q9967

== ENCOUNTER → 2018-11-24 | Outpatient (REF) | payer MEDICARE ==
[2018-11-24 16:01] LABS: IMMUNOGLOBULIN G 638 MG/DL (681-1648); IMMUNOGLOBULIN M 47.9 MG/DL (40-230); TOTAL PROTEIN 6.1 GM/DL (6.4-8.2)
[2018-11-25 13:44] LABS: ALBUMIN % 59.5 % (55.8-66.1); ALPHA-1-GLOBULIN % 5.3 % (2.9-4.9)
[2018-11-25 13:45] LABS: ALBUMIN 3.63 GM/DL (3.29-5.55); ALPHA-1-GLOBULINS 0.32 GM/DL (0.17-0.41); ALPHA-2-GLOBULINS 0.79 GM/DL (0.42-0.99); ALPHA-2-GLOBULINS % 12.9 % (7.1-11.8); BETA-1-GLOBULINS 0.42 GM/DL (0.28-0.60); BETA-1-GLOBULINS % 6.9 % (4.7-7.2); BETA-2-GLOBULINS 0.32 GM/DL (0.19-0.55); BETA-2-GLOBULINS % 5.3 % (3.2-6.5); GAMMA GLOBULIN % 10.1 % (11.1-18.8); GAMMA GLOBULINS 0.62 GM/DL (0.65-1.58)
== END ==
LOC: M LAB REF 15:34
PROVIDERS: ATTEND Internal Medicine
DX: D47.2 Monoclonal gammopathy (principal)

== ENCOUNTER 2018-12-03 16:22 | Emergency (ER) | payer MEDICARE ==
[~2018-12-03] VITALS: Ht 154.9 cm; Wt 61.8 kg
[2018-12-03] MEDS ORDERED: ADENOSINE 6MG/2ML INJECTION (J0153) IV STA ×3 (16:45)
[2018-12-03] MEDS ORDERED: NS 500 ML IV ONE (16:45)
[2018-12-03 16:58] LABS: BASO # 0.1 10^3/uL (0.0-0.2); BASO % 0.9 % (0.0-1.0); EOS # 0.1 10^3/uL (0.0-0.50); EOS % 0.6 % (0.0-3.0); HEMATOCRIT 44.4 % (36.0-47.0); HEMOGLOBIN 14.8 g/dl (12.0-15.5); LYMPH # 3.2 10^3/uL (1.5-4.5); LYMPH % 20.7 % (24.0-44.0); MEAN CORPUSCULAR HEMOGLOBIN 32.8 pg (27.0-33.0); MEAN CORPUSCULAR HGB CONC 33.3 g/dl (32.0-36.5); MEAN CORPUSCULAR VOLUME 98.4 fl (80.0-96.0); MONO # 1.2 10^3/uL (0.0-0.8); MONO % 7.6 % (0.0-5.0); NEUTROPHILS # 10.8 10^3/uL (1.8-7.7); NEUTROPHILS % 69.4 % (36.0-66.0); PLATELET COUNT, AUTOMATED 496 10^3/uL (150-450); RED BLOOD COUNT 4.51 10^6/uL (4.00-5.40); WHITE BLOOD COUNT 15.6 10^3/uL (4.0-10.0)
[2018-12-03 17:27] VITALS: BP 97/51
[2018-12-03 17:28] LABS: BLOOD UREA NITROGEN 13 MG/DL (7-18); CALCIUM LEVEL 8.8 MG/DL (8.8-10.2); CARBON DIOXIDE LEVEL 22 MEQ/L (21-32); CHLORIDE LEVEL 102 MEQ/L (98-107); CPK CREATINE PHOSPHOKINASE 59 U/L (26-192); CREATININE FOR GFR 0.93 MG/DL (0.55-1.30); GLOMERULAR FILTRATION RATE > 60.0 (>39); GLUCOSE, FASTING 267 MG/DL (70-100); MAGNESIUM LEVEL 1.4 MG/DL (1.8-2.4); MB/CK RELATIVE INDEX 3.22 (< OR =4); POTASSIUM SERUM 4.6 MEQ/L (3.5-5.1); SODIUM LEVEL 134 MEQ/L (136-145); TROPONIN I < 0.02 NG/ML (< 0.10)
[2018-12-03] MEDS ORDERED: METOPROLOL TART 25 MG TABLET PO ONE (17:30)
--- NOTE | 2018-12-03 17:58 | ECGEPIP ---
Stationary ECG Study [facility] - ED Test Date: 2018-12-03 Pat Name: MARCELINO FOWLER Department: Room: - Gender: F Radiology Tech: REY : 1945 Requested By: LAURA Lyons Order Number: [id number] Reading MD: Karen Oconnell Measurements Intervals [place] Rate: 173 P: [place]: 0 QRS: 36 QRSD: 102 T: 154 QT: 250 QTc: 425 Interpretive Statements SUPRAVENTRICULAR TACHYCARDIA ST DEVIATION AND MODERATE T-WAVE ABNORMALITY, CONSIDER LATERAL ISCHEMIA SINUS RHYTHM 11/22/18 Electronically Signed On 12-03-2018 17:58:13 EST by Karen Oconnell
[2018-12-03] MEDS ORDERED: MAG SULF 1GM/100ML (MAG RUN) 1 GM in APPROPRIATE DILUENT 1 EA IV ONE ×2 (18:00→18:30)
[2018-12-03] MEDS ORDERED: SLOWTAB2 PO (18:25)
[2018-12-03] MEDS ORDERED: ACETAMINOPHEN TAB 650MG DOSE (2X325MG) PO ONE (18:45)
[2018-12-03 20:52] LABS: MB/CK RELATIVE INDEX 4.26 (< OR =4); TROPONIN I 0.03 NG/ML (< 0.10)
[2018-12-03 21:00] VITALS: BP 102/55
== END 2018-12-03 21:42 | disposition home or self-care (01) ==
LOC: M ED 16:22
DX: I47.1 Supraventricular tachycardia (principal); E11.65 Type 2 diabetes mellitus with hyperglycemia; E78.5 Hyperlipidemia, unspecified; I25.2 Old myocardial infarction; I10 Essential (primary) hypertension; Z86.73 Personal history of transient ischemic attack (TIA), and cerebral infarction without residual deficits
CPT/HCPCS: 36415; 80048; 82550; 82553; 83735; 84443; 84484; 85025; 93005; 96374; 96376; 99285; J0153; J3475

== ENCOUNTER → 2018-12-22 | Outpatient (CLI) | payer MEDICARE ==
[~2018-12-22] MED LIST changes: +SLOWTAB2 PO
--- NOTE | 2018-12-22 12:53 | REP ---
Chest two views HISTORY: Shortness of breath Comparison: 11/22/2018 The lungs are clear. The heart is normal in size. The pulmonary vasculature is normal in appearance. There i old fractures of the proximal left humerus and several upper thoracic vertebral bodies. IMPRESSION: No acute disease. Electronically Signed by Emile Moraes MD 12/22/2018 12:44 P
== END ==
LOC: M WUC 11:43
PROVIDERS: ATTEND Physician Assistant
DX: J44.1 Chronic obstructive pulmonary disease with (acute) exacerbation (principal); R06.02 Shortness of breath

== ENCOUNTER 2019-01-17 20:45 | Emergency (ER) | payer MEDICARE ==
[~2019-01-17] VITALS: Ht 154.9 cm; Wt 61.4 kg
[2019-01-17 20:46] VITALS: BP 130/59
[2019-01-17] MEDS ORDERED: NORCOTAB PO (21:58)
[2019-01-17] MEDS ORDERED: NORCO, ANEXSIA 5/325MG TABLET (HYDROcodone/ACETAMINOPHEN) PO ONE (22:00)
--- NOTE | 2019-01-18 09:43 | REP ---
Bilateral rib series four views: There are nondisplaced fractures of the right fourth, fifth and sixth ribs. There is an old healed fracture deformity of the left humeral neck. Electronically Signed by Ace Joseph MD 01/18/2019 09:34 A
--- NOTE | 2019-01-18 09:45 | REP ---
PA and lateral chest: Comparisons are 12/22/2018 and the bilateral rib series performed this same date. There is no pneumothorax, hemothorax or pulmonary contusion. Lung oshea otherwise clear. Right rib fractures are better visualized on the rib series. There is an old healed fracture deformity of the left humeral neck, unchanged. Cardiac size is normal. The braden, mediastinum, skeletal structures are unremarkable. Impression: Essentially negative PA and lateral chest. The right rib fractures are better visualized on the rib series performed this same date. Old healed fracture deformity of the left humeral neck. Electronically Signed by Ace Joseph MD 01/18/2019 09:36 A
--- NOTE | 2019-01-18 09:53 | REP ---
Right shoulder three views : There is no fracture or dislocation. Mineralization and joint spaces are normal. There are no calcifications or foreign bodies. Impression: Negative right shoulder . Electronically Signed by Ace Joseph MD 01/18/2019 09:45 A
--- NOTE | 2019-01-18 11:21 | ED PDOC ---
Post-Departure Follow-Up charge master specialistleticia baig asked to call pt, disclose rib fx, ask pt to Corey Alejandro dr, MD Jan 18, 2019 11:21
== END 2019-01-17 22:12 | disposition home or self-care (01) ==
LOC: M ED 20:45
DX: S20.219A Contusion of unspecified front wall of thorax, initial encounter (principal); S46.911A Strain of unspecified muscle, fascia and tendon at shoulder and upper arm level, right arm, initial encounter; W01.0XXA Fall on same level from slipping, tripping and stumbling without subsequent striking against object, initial encounter; Y92.410 Unspecified street and highway as the place of occurrence of the external cause; I10 Essential (primary) hypertension; E78.00 Pure hypercholesterolemia, unspecified; F17.200 Nicotine dependence, unspecified, uncomplicated; Z79.82 Long term (current) use of aspirin; Z79.899 Other long term (current) drug therapy; Z87.81 Personal history of (healed) traumatic fracture; Z86.73 Personal history of transient ischemic attack (TIA), and cerebral infarction without residual deficits; Z88.8 Allergy status to other drugs, medicaments and biological substances

== ENCOUNTER → 2019-02-16 | Outpatient (CLI) | payer MEDICARE ==
[~2019-02-16] MED LIST changes: +ACET-716 PO; -ACET30TAB PO; +ASPI-1 PO; -ASPI1TAB PO; -ASPI325T PO; +ASPI81TA26 PO; +HYDR-3715 PO; +METO-346 PO; +METO1TAB63 PO; -METO25TAB PO; -NORC1TAB4 PO; +NORC1TAB7 PO; -NORCOTAB PO
--- NOTE | 2019-02-16 14:45 | REP ---
PA and lateral chest: Comparisons are 01/17/2019 and 02/15/2016. The lung oshea are clear. No pleural effusions. There are no masses or nodules. There are right rib fractures, better visualized on the right rib series dated 01/17/2019. There is an old left humeral neck/head fracture. There are old compression deformities of several upper thoracic vertebral bodies, unchanged from 02/15/2016. Cardiac size is normal. The braden and mediastinum are unremarkable. Impression: No acute cardiopulmonary findings. There are chronic changes as described. Electronically Signed by Ace Joseph MD 02/16/2019 02:36 P
== END ==
LOC: M WUC 13:47
PROVIDERS: ATTEND Physician Assistant
DX: R05 Cough (principal)

== ENCOUNTER → 2019-03-10 | Outpatient (CLI) | payer MEDICARE ==
[~2019-03-10] MED LIST changes: +ACET-653; +ALEN70TA74; +TYLETAB14 PO
--- NOTE | 2019-03-10 16:55 | REP ---
RIGHT SHOULDER, TWO VIEWS: HISTORY: Contusion. COMPARISON: 01/17/2019 There is no acute fracture or dislocation. There is mild narrowing of the acromioclavicular joint. The glenohumeral joint is normal in appearance. IMPRESSION: There is no acute fracture or dislocation. Electronically Signed by Emile Moraes MD 03/10/2019 04:57 P
--- NOTE | 2019-03-10 16:58 | REP ---
HISTORY: Pain after contusion. COMPARISON: None. FINDINGS: No acute fracture or destructive osseous lesion. Chronic changes seen involving the shoulder and elbow. Electronically Signed by Sharad Stahl DO 03/10/2019 05:24 P
== END ==
LOC: M WUC 15:45
PROVIDERS: ATTEND Physician Assistant
DX: S40.021A Contusion of right upper arm, initial encounter (principal); S40.011A Contusion of right shoulder, initial encounter; X58.XXXA Exposure to other specified factors, initial encounter; Y92.9 Unspecified place or not applicable

== ENCOUNTER 2019-03-12 13:08 | Emergency (ER) | payer MEDICARE ==
[~2019-03-12] VITALS: Ht 149.9 cm; Wt 58.6 kg
[~2019-03-12 13:08] MED LIST changes: -ACET-653; -ALEN70TA74; -TYLETAB14 PO
[2019-03-12] MEDS ORDERED: ACET-653 (13:16)
[2019-03-12] MEDS ORDERED: ALEN70TA74 PO (13:16)
--- NOTE | 2019-03-12 13:59 | REP ---
LEFT WRIST, FOUR VIEWS: HISTORY: Fall. There is a fracture of the distal radius with lateral displacement of the distal fracture fragment. There is moderate deformity of the lunate. A calcified density is present distal and lateral to the ulnar styloid process that may represent an old evulsion fracture or ligamentous or tendon calcification. There is narrowing of the 1st carpometacarpal joint. Chondrocalcinosis is present. IMPRESSION: Fracture of the distal radius with lateral displacement of the distal fracture fragment. Electronically Signed by Emile Moraes MD 03/12/2019 02:01 P
[2019-03-12] MEDS ORDERED: PERCOCET 5MG/325MG TAB PO ONE (14:00)
[2019-03-12] MEDS ORDERED: LIDOCAINE 1% MDV 20ML VIAL SC ONE ×2 (14:15→14:30)
[2019-03-12] MEDS ORDERED: LIDOCAINE 1% MDV INJ 50 ML VIAL SC ONE (14:15)
--- NOTE | 2019-03-12 15:22 | ER ---
DATE OF CONSULTATION: 03/12/2019 CHIEF COMPLAINT: Left wrist fracture. HISTORY: This is a 74-year-old woman with chronic obstructive pulmonary disease (COPD), chronic smoker. She fell today, tripped over an extension cord, and sustained a left wrist fracture that was displaced. I was asked to evaluate her for this. She denies any other injury but she has had troubles with her right shoulder over the past few weeks. PAST MEDICAL HISTORY: Her past medical history is notable for chronic obstructive pulmonary disease (COPD), possible diabetes. MEDICATIONS: Include magnesium, Vicodin, hydrocortisone, valproic acid, aspirin, amlodipine, metoprolol, enalapril, vitamin D3, Tylenol, metformin and albuterol. ALLERGIES: She has allergies to DARVOCET. PHYSICAL EXAMINATION: Otherwise somewhat frail-appearing woman in no acute distress, slender. She has no tenderness about her upper extremity aside from her left wrist where she has some deformity. She has some decreased sensation in her median nerve distribution but can feel me touching her. She has significant decreased range of motion of her fingers and this causes pain. She has no forearm pain, elbow pain or proximal tenderness. Skin is intact. Radiographs were reviewed of her wrist which show a comminuted displaced distal radius fracture. IMPRESSION: Left Colles fracture displaced. RECOMMENDATIONS: Suggested a closed reduction and she wishes to go ahead with this. Under sterile conditions, I injected 10 mL of 1% plain lidocaine after we confirmed site and side and a consent was obtained. I then hung her fingers and finger traps and placed some traction across the wrist. Gentle reduction maneuver was performed. This seemed to clinically improve the wrist significantly. She was able to move her fingers normally after this. She had intact sensation after this. This reduction seemed to resolve her numbness. She understands the nature of this injury, the risks of malunion, nonunion, loss of reduction, stiffness, arthritis, pain, need for surgery, among others. She understands that her chronic smoking and also has a history of osteoporosis but her chronic smoking will reduce the chances that this will heal. I have encouraged her to significantly back off on that. If the films are acceptable then I would recommend ice, elevate and a sling. She should followup in the office in 4-5 days for a repeat x-ray. They know to call or return if she has increasing pain, numbness, reinjury, etcetera. Certainly, they can return to the emergency room if there are any urgent issues. We will plan on keeping this splint on probably for several weeks assuming we can keep the reduction in it. Addendum: 03/12/2019 at 3:09 pm AP and lateral x-rays shows excellent reduction; appears to be essentially anatomic and out to length. Patient is feeling much better with no residual numbness right now and moving her fingers normally.
--- NOTE | 2019-03-12 15:29 | REP ---
LEFT WRIST, TWO VIEWS: Two views of the left wrist are performed. Previously noted fracture of the distal radius is well aligned. Overlying splint obscures underlying osseous detail. Electronically Signed by Ace Lester MD 03/13/2019 12:23 P
[2019-03-12 15:45] VITALS: BP 124/60
[2019-03-12] MEDS ORDERED: TYLETAB14 PO (15:47)
== END 2019-03-12 16:02 | disposition home or self-care (01) ==
LOC: M ED 13:08
DX: S52.532A Colles' fracture of left radius, initial encounter for closed fracture (principal); W01.0XXA Fall on same level from slipping, tripping and stumbling without subsequent striking against object, initial encounter; Y92.098 Other place in other non-institutional residence as the place of occurrence of the external cause; I10 Essential (primary) hypertension; E11.9 Type 2 diabetes mellitus without complications; J44.9 Chronic obstructive pulmonary disease, unspecified; E78.5 Hyperlipidemia, unspecified; R56.9 Unspecified convulsions; M81.0 Age-related osteoporosis without current pathological fracture; M54.9 Dorsalgia, unspecified; Z86.73 Personal history of transient ischemic attack (TIA), and cerebral infarction without residual deficits; Z88.8 Allergy status to other drugs, medicaments and biological substances; Z79.899 Other long term (current) drug therapy; Z79.82 Long term (current) use of aspirin; Z79.51 Long term (current) use of inhaled steroids; F17.200 Nicotine dependence, unspecified, uncomplicated

== ENCOUNTER 2019-03-22 00:33 | Inpatient (IN) | payer MEDICARE ==
[2019-03-21 03:53] VITALS: BP 114/54
[~2019-03-22] VITALS: Ht 157.5 cm; Wt 59.8 kg
[~2019-03-22 00:33] MED LIST changes: +ACET-653; +ALEN70TA74 PO; +TYLETAB14 PO
[2019-03-22] MEDS ORDERED: ADENOSINE 6MG/2ML INJECTION (J0153) IV STA (00:44)
[2019-03-22] MEDS ORDERED: NS 1,000 ML IV ONE (00:45)
[2019-03-22] MEDS ORDERED: dexameTHASONE 20 MG/5 ML VIAL (J1100) IV ONE (00:45)
[2019-03-22 01:03] LABS: BASO # 0.1 10^3/uL (0.0-0.2); BASO % 0.5 % (0.0-1.0); EOS # 0.2 10^3/uL (0.0-0.50); EOS % 2.1 % (0.0-3.0); HEMATOCRIT 25.9 % (36.0-47.0); LYMPH # 3.5 10^3/uL (1.5-4.5); LYMPH % 35.8 % (24.0-44.0); MEAN CORPUSCULAR HEMOGLOBIN 32.3 pg (27.0-33.0); MEAN CORPUSCULAR HGB CONC 30.9 g/dl (32.0-36.5); MEAN CORPUSCULAR VOLUME 104.4 fl (80.0-96.0); MONO % 10.4 % (0.0-5.0); NEUTROPHILS # 4.9 10^3/uL (1.8-7.7); NEUTROPHILS % 50.1 % (36.0-66.0); PLATELET COUNT, AUTOMATED 301 10^3/uL (150-450); RED BLOOD COUNT 2.48 10^6/uL (4.00-5.40); WHITE BLOOD COUNT 9.8 10^3/uL (4.0-10.0)
[2019-03-22] MEDS ORDERED: NS 500 ML IV ONE (01:45)
[2019-03-22] MEDS ORDERED: APAP325T4 PO (01:46)
[2019-03-22] MEDS ORDERED: NU-M1TAB PO (01:49)
[2019-03-22 01:53] LABS: BLOOD UREA NITROGEN 11 MG/DL (7-18); CARBON DIOXIDE LEVEL 17 MEQ/L (21-32); CHLORIDE LEVEL 118 MEQ/L (98-107); CREATININE FOR GFR 0.54 MG/DL (0.55-1.30); GLOMERULAR FILTRATION RATE > 60.0 (>39); GLUCOSE, FASTING 180 MG/DL (70-100); POTASSIUM SERUM 3.7 MEQ/L (3.5-5.1); SODIUM LEVEL 145 MEQ/L (136-145); T UPTAKE 39 % (30-39); THYROXINE (T4) 5.1 UG/DL (4.5-12.0)
[2019-03-22] MEDS ORDERED: ASPI-261 PO (01:54)
[2019-03-22] MEDS ORDERED: NORC1TAB7 PO (01:54)
[2019-03-22] MEDS ORDERED: BUSP5TA PO (01:54)
[2019-03-22] MEDS ORDERED: SPIR-10 PO (01:54)
[2019-03-22] MEDS ORDERED: ATOR1TAB21 PO (01:54)
[2019-03-22] MEDS ORDERED: D 1010004 PO (01:59)
[2019-03-22] MEDS ORDERED: IPRATROPIUM 0.5MG/ALBUTEROL 2.5MG INH SOL UD 3ML (DUONEB)(J7620) NEB ONE (02:00)
[2019-03-22] MEDS ORDERED: MAGNESIUM OXIDE 400 MG TAB (MAG-OX) PO ONE (02:00)
[2019-03-22] MEDS ORDERED: PATIENT COMMENT (02:01)
[2019-03-22] MEDS ORDERED: TYLETAB14 PO (02:04)
[2019-03-22 02:13] LABS: SALICYLATE LEVEL 7.8 MG/DL (5.0-30.0); VALPROIC ACID (DEPAKOTE) 19.9 UG/ML (50.0-100.0)
[2019-03-22] MEDS ORDERED: HYDR-4513 PO (02:25)
[2019-03-22] MEDS ORDERED: MOM 30ML SUSPENSION UDC PO PRN (03:00)
[2019-03-22] MEDS ORDERED: MAALOX 30 ML SUSP *UDC PO PRN (03:00)
[2019-03-22 03:28] LABS: INR 1.19; PROTHROMBIN TIME 15.3 SECONDS (12.1-14.4)
[2019-03-22 03:29] LABS: PARTIAL THROMBOPLASTIN TIME 33.4 SECONDS (25.4-37.6)
[2019-03-22] MEDS ORDERED: MAG SULF 1GM/100ML (MAG RUN) 1 GM in APPROPRIATE DILUENT 1 EA IV ONE (03:30)
--- NOTE | 2019-03-22 03:37 | HPEPDOC ---
General Date of Admission Chief Complaint The patient is a 74-year-old female admitted with a reason for visit of Rapid Heart Rate. Source: Patient, Family, RN/, Old records History of Present Illness Ms. Solano s a 74 years old woman who was brought to ER with c/o palpitation and dizziness, which occurred suddenly while walking in the kitchen. Pt and family report no overt trigger factor. Pt was at her usual state of health this evening before the event occurred. Denies cheat pain, LOC, fever, or chills. Pt has many chronic issues, but nothing has changed as of yesterday. Chronic issues include: very poor appetite, poor nutritional intake, abnormal bowel habits, weight loss, frequent falls, recent fracture of right ribs causing pain, and recent left arm dislocation. Pt appears cachectic and chronically ill. Pt reports unremarkable colonoscopy more than a year ago. She takes high dose aspirin at home. EMS found pt in SVT with rate of 190/min; Adenosine 6 mg was ineffective. Pt was given another 12 mg in the Er with good result. Now she is in sinus rhythm with rate of 80s/min. She was initially hypotensive; this has resolved. Pt now has no dizziness or palpitation. Family report she had two other episodes of SVT in the past one month. Labs showed Hb of 8.0 (14.8 in Nov 2018); MCV 104. Pt denies melena or bleeding. Occult blood test was negative in ER. Mg level was low. TSH normal. EKG: NSR. Home Medications Scheduled Alendronate Sodium (Alendronate Sodium) 70 Mg Tablet, 70 MG PO QWEEK, (Reported) MONDAYS Amlodipine Besylate (Amlodipine Besylate) 5 Mg Tab, 5 MG PO QPM, (Reported) Atorvastatin Calcium (Atorvastatin Calcium) 20 Mg Tablet, 10 MG PO QHS, (Reported) Buspirone HCl (Buspirone HCl) 5 Mg Tablet, 5 MG PO BID, (Reported) Cholecalciferol (Vitamin D3) (Vitamin D3) 1,000 Unit Capsule, 2,000 UNIT PO DAILY, (Reported) Enalapril Maleate (Enalapril Maleate) 20 Mg Tab, 20 MG PO QPM, (Reported) Fluticasone/Vilanterol (Breo Ellipta 200-25 Mcg INH) 1 Inh Inh, 1 PUFF INH QHS, (Reported) Hydrocortisone (Cortef) 10 Mg Tab, 10 MG PO QHS, (Reported) TOTAL 30 MG PER DAY Hydrocortisone (Hydrocortisone) 10 Mg Tablet, 20 MG PO DAILY, (Reported) TOTAL 30 MG PER DAY Magnesium Chloride (Nu-Mag) 71.5 Mg Tablet.dr, 71.5 MG PO BID, (Reported) Metformin HCl (Metformin HCl) 1,000 Mg Tab, 1,000 MG PO BID, (Reported) Metoprolol Tartrate (Metoprolol Tartrate) 25 Mg Tab, 25 MG PO BID, (Reported) Ropinirole HCl (Ropinirole HCl) 1 Mg Tab, 1 MG PO QHS, (Reported) Spironolactone (Spironolactone) 25 Mg Tablet, 25 MG PO DAILY, (Reported) Valproic Acid (Depakene) 250 Mg Cap, 250 MG PO TID, (Reported) Scheduled PRN Acetaminophen (Acetaminophen) 325 Mg Tablet, 650 MG PO TID PRN for PAIN, (Reported) Albuterol Sulfate (Ventolin Hfa) 108 Mcg/Act Aer, 2 PUFF INH Q4H PRN for SHORTNESS OF BREATH, (Reported) Aspirin (Aspirin) 325 Mg Tablet, 650 MG PO Q4H PRN for PAIN, (Reported) Hydrocodone/Acetaminophen ([place] 5-325 Tablet) 1 Each Tablet, 1 TAB PO Q6H PRN for PAIN, (Reported) Ipratropium/Albuterol Sulfate (Iprat-Albut 0.5-3(2.5) mg/3 ml) 1 Ana [place], 1 DOSE INH TID PRN for SHORTNESS OF BREATH, (Reported) Allergies Coded Allergies: propoxyphene (Verified Allergy, Intermediate, hives, 03/12/19) Past Medical History Medical History 1. Hypertension 2. Dyslipidemia 3. Chronic obstructive pulmonary disease 4. Diabetes mellitus 5. Coronary artery disease 6. Seizure disorder 7. Tobacco abuse 8. Adrenal insufficiency 9. History of cerebrovascular accident (per reported history provided by patient's partner) 10. History of bowel obstructions, Diverticulitis 11. Magnesium deficiency Surgical History 1. Hysterectomy 2. Breast biopsy with removal of cyst Family History Significant Family History: Asthma, Cancer (Brother, pancreatic cancer), COPD (mother, at 44 secondary to COPD), Diabetes (father) A-FIB/CHADSVASC A-FIB History Current/History of A-Fib/PAF?: No Review of Systems Constitutional: Reports: Weakness, Weight Loss; Denies: Chills, Fever Eyes: Denies: Pain ENT: Denies: Head Aches, Dysphagia Skin: Denies: Rash, Lesions Pulmonary: Denies: Dyspnea, Cough Cardiovascular: Denies: Chest Pain, Edema Gastrointestinal: Reports: Diarrhea (chronic); Denies: Nausea, Vomiting, Abdominal Pain Genitourinary: Denies: Dysuria Neurological: Denies: Numbness, Change in speech, Confusion Psych: Reports: Mood Normal; Denies: Anxiety Physical Examination General Exam: Positive: Alert, Cooperative, No Acute Distress Eye Exam: Positive: PERRLA ENT Exam: Positive: Atraumatic Neck Exam: Positive: Supple; Negative: JVD Chest Exam: Positive: Clear to auscultation, Normal air movement Heart Exam: Positive: Rate Normal, Regular Rhythm Abdomen Exam: Positive: Normal bowel sounds, Soft; Negative: Tenderness Extremity Exam: Positive: Normal pulses; Negative: Edema Skin Exam: Negative: Rash, Breakdown Neuro Exam: Positive: Normal Speech, Strength at 5/5 X4 ext Psych Exam: Positive: Mental status NL, Mood NL Vital Signs Vital Signs Date Time Temp Pulse Resp B/P (MAP) Pulse Ox O2 Delivery O2 Flow Rate FiO2 03/22/19 02:20 87 100 03/22/19 02:15 100/48 (65) 03/22/19 02:01 16 03/22/19 00:47 98.4 Room Air Laboratory Data Labs 24H Laboratory Tests 2 03/22/19 00:53: Immature Granulocyte % (Auto) 1.1, White Blood Count 9.8, Red Blood Count 2.48L, Hemoglobin 8.0L, Hematocrit 25.9L, Mean Corpuscular Volume 104.4H, Mean Corpuscular Hemoglobin 32.3, Mean Corpuscular Hemoglobin Concent 30.9L, Red Cell Distribution Width 14.8H, Platelet Count 301, Neutrophils (%) (Auto) 50.1, Ly mphocytes (%) (Auto) 35.8, Monocytes (%) (Auto) 10.4H, Eosinophils (%) (Auto) 2.1, Basophils (%) (Auto) 0.5, Neutrophils # (Auto) 4.9, Lymphocytes # (Auto) 3.5, Monocytes # (Auto) 1.0H, Eosinophils # (Auto) 0.2, Basophils # (Auto) 0.1, Nucleated Red Blood Cells % (auto) 0.0, Anion Gap 10, Glomerular Filtration Rate > 60.0, Blood Urea Nitrogen 11, Creatinine 0.54L, Sodium Level 145, Potassium Level 3.7, Chloride Level 118H, Carbon Dioxide Level 17L, Calcium Level 6.0L, Magnesium Level 1.0L, Thyroid Stimulating Hormone (TSH) 1.960, Free Thyroxine Index 2.0, Thyroxine (T4) 5.1, Triiodothyronine (T3) Uptake 39, Salicylates Level 7.8, Valproic Acid (Depakene) Level 19.9L CBC/BMP Laboratory Tests 03/22/19 00:53 Red Blood Count 2.48 L, Mean Corpuscular Volume 104.4 H, Mean Corpuscular Hemoglobin 32.3, Mean Corpuscular Hemoglobin Concent 30.9 L, Red Cell Distribution Width 14.8 H, Neutrophils (%) (Auto) 50.1, Lymphocytes (%) (Auto) 35.8, Monocytes (%) (Auto) 10.4 H, Eosinophils (%) (Auto) 2.1, Basophils (%) (Auto) 0.5, Neutrophils # (Auto) 4.9, Lymphocytes # (Auto) 3.5, Monocytes # (Auto) 1.0 H, Eosinophils # (Auto) 0.2, Basophils # (Auto) 0.1, Calcium Level 6.0 L Assessment/Plan 1. Symptomatic Anemia, macrocytic; no signs of acute bleeding; possible related to malnutrition; r/o Celiac disease - Admit to inpatient - Anemia w/u; further x based on test results - Trend Hb - Glucerna supplement; Edge Glue Machine Tender consult - Celiac disease w/u for abnormal bowel habits and poor appetite - Colonoscopy, if indicated, as OP - Hold aspirin for now 2. S/P SVT - Tele - Continue beta jamal; monitor and supplement Magnesium. Treat pain and anemia. - Cardiac biomarkers - Echo - Cardiology referral as OP 3. NIDDM-2 - Hold metformin; SSI Plan / VTE VTE Prophylaxis Ordered?: Yes VTE Exclusion Mechanical Proph: N/A:VTE Prophy Ordered VTE Exclusion Pharmacological: Bleeding Risk MAXIMUS GROVES MD March 22, 2019 03:37
[2019-03-22] MEDS ORDERED: DEXTROSE 50% 50 ML SYRINGE IV PRN (03:45)
[2019-03-22] MEDS ORDERED: GLUCAGON FOR INJ 1 MG VIAL (J1610) SC PRN (03:45)
[2019-03-22] MEDS ORDERED: GLUCOSE 4 GM CHEW TABLET PO PRN (03:45)
[2019-03-22 03:53] VITALS: BP 114/54
[2019-03-22] MEDS: rOPINIRole 1MG TAB PO SCH ×2 (03:59→20:56)
[2019-03-22 04:01] LABS: ALT/SGPT 10 U/L (12-78); BILIRUBIN,DIRECT < 0.1 MG/DL (0.0-0.2); BILIRUBIN,TOTAL < 0.1 MG/DL (0.2-1.0); CPK CREATINE PHOSPHOKINASE 35 U/L (26-192); IRON (FE) 31 UG/DL (50-170); MB/CK RELATIVE INDEX 3.43 (< OR =4); PERCENT SATURATION 21.1 % (13.2-45.0); TOTAL IRON BINDING CAPACITY 147 UG/DL (250-450); TOTAL PROTEIN 4.4 GM/DL (6.4-8.2); TROPONIN I 0.03 NG/ML (< 0.10)
[2019-03-22] MEDS: NORCO, ANEXSIA 5/325MG TABLET (HYDROcodone/ACETAMINOPHEN) PO PRN ×3 (04:25→20:59)
[2019-03-22] MEDS: IPRATROPIUM 0.5MG/ALBUTEROL 2.5MG INH SOL UD 3ML (DUONEB)(J7620) INH PRN ×2 (05:41→23:29)
[2019-03-22 06:22] LABS: HEMATOCRIT 38.1 % (36.0-47.0); MEAN CORPUSCULAR HEMOGLOBIN 31.7 pg (27.0-33.0); MEAN CORPUSCULAR HGB CONC 31.8 g/dl (32.0-36.5); MEAN CORPUSCULAR VOLUME 99.7 fl (80.0-96.0); RED BLOOD COUNT 3.82 10^6/uL (4.00-5.40); WHITE BLOOD COUNT 12.3 10^3/uL (4.0-10.0)
[2019-03-22 06:23] LABS: HEMATOCRIT 37.1 % (36.0-47.0)
[2019-03-22 06:36] LABS: HEMOGLOBIN 12.1 g/dl (12.0-15.5)
[2019-03-22 06:37] LABS: PLATELET COUNT, AUTOMATED 469 10^3/uL (150-450)
[2019-03-22 06:59] LABS: BLOOD UREA NITROGEN 13 MG/DL (7-18); CALCIUM LEVEL 7.6 MG/DL (8.8-10.2); CARBON DIOXIDE LEVEL 19 MEQ/L (21-32); CHLORIDE LEVEL 108 MEQ/L (98-107); CPK CREATINE PHOSPHOKINASE 33 U/L (26-192); CREATININE FOR GFR 0.56 MG/DL (0.55-1.30); GLOMERULAR FILTRATION RATE > 60.0 (>39); GLUCOSE, FASTING 237 MG/DL (70-100); MB/CK RELATIVE INDEX 5.15 (< OR =4); POTASSIUM SERUM 4.9 MEQ/L (3.5-5.1); SODIUM LEVEL 135 MEQ/L (136-145); TROPONIN I 0.04 NG/ML (< 0.10)
[2019-03-22] MEDS: ADVAIR HFA 230/21MCG INHALER INH SCH ×2 (07:49→20:13)
[2019-03-22 08:00] VITALS: BP 125/63
--- NOTE | 2019-03-22 08:02 | ECGEPIP ---
Stationary ECG Study [facility] - ED Test Date: 2019-03-22 Pat Name: MARCELINO FOWLER Department: Room: [place] [address] Gender: F Snubber: mima : 1945 Requested By: KEVEN ATKINSON Order Number: [id number] Reading MD: Kade Cervantes Measurements Intervals [place] Rate: 108 P: AL: 0 QRS: 35 QRSD: 77 T: 75 QT: 327 QTc: 439 Interpretive Statements SINUS TACHYCARDIA NSTTW ABNORMALITIES RHYTHM/RATE CHANGE COMPARED TO 12/03/18 Electronically Signed On 03-22-2019 8:02:48 EDT by Kade Cervantes
[2019-03-22] MEDS: VITAMIN D 1,000 INTERNATIONAL UNITS TABLET PO SCH (09:15)
[2019-03-22] MEDS: NICOTINE 21MG/24HR 1 EA TRANSDERMAL TD SCH (09:15)
[2019-03-22] MEDS: busPIRone 5 MG TAB PO SCH ×2 (09:15→20:57)
[2019-03-22] MEDS: HumaLOG INSULIN (NovoLOG) PER UNIT SC SCH ×4 (09:15→20:58)
[2019-03-22] MEDS: CALCIUM/VITAMIN D 500 MG TAB PO SCH ×3 (09:16→20:57)
[2019-03-22] MEDS: HYDROCORTISONE 10 MG TAB PO SCH ×2 (09:16→20:57)
[2019-03-22] MEDS: FERROUS SULFATE 325MG TAB PO SCH ×3 (09:16→20:56)
[2019-03-22] MEDS: METOPROLOL TART 25 MG TABLET PO SCH ×2 (09:16→20:57)
[2019-03-22] MEDS: VALPROIC ACID 250 MG CAP PO SCH ×3 (09:17→20:58)
[2019-03-22] MEDS: MAGNESIUM CHLORIDE 64 MG TABCR (SLO MAG) PO SCH (09:24)
--- NOTE | 2019-03-22 10:06 | REP ---
Portable chest x-ray: Single view. History: Dyspnea. Comparison study: February 16, 2019. Findings: EKG monitoring electrodes are seen. The lungs are somewhat hyperinflated but free of infiltrate. The heart is not enlarged. The pulmonary vasculature is normal. Pleural angles are sharp. There is an old healed fracture of the surgical neck of the humerus on the left. Diffuse osteopenia is present. Impression: Hyperinflation. Otherwise no active disease. Electronically Signed by Mauricio Mcrae MD 03/22/2019 07:46 A
[2019-03-22 11:10] LABS: BASO % 0.3 % (0.0-1.0); HEMATOCRIT 35.5 % (36.0-47.0); HEMOGLOBIN 11.6 g/dl (12.0-15.5); LYMPH # 0.9 10^3/uL (1.5-4.5); LYMPH % 7.7 % (24.0-44.0); MEAN CORPUSCULAR HEMOGLOBIN 32.3 pg (27.0-33.0); MEAN CORPUSCULAR HGB CONC 32.7 g/dl (32.0-36.5); MEAN CORPUSCULAR VOLUME 98.9 fl (80.0-96.0); MONO # 0.1 10^3/uL (0.0-0.8); MONO % 1.2 % (0.0-5.0); NEUTROPHILS % 89.9 % (36.0-66.0); PLATELET COUNT, AUTOMATED 459 10^3/uL (150-450); RED BLOOD COUNT 3.59 10^6/uL (4.00-5.40); WHITE BLOOD COUNT 11.1 10^3/uL (4.0-10.0)
[2019-03-22 11:30] LABS: BLOOD UREA NITROGEN 14 MG/DL (7-18); CALCIUM LEVEL 8.1 MG/DL (8.8-10.2); CARBON DIOXIDE LEVEL 20 MEQ/L (21-32); CHLORIDE LEVEL 108 MEQ/L (98-107); CPK CREATINE PHOSPHOKINASE 30 U/L (26-192); CREATININE FOR GFR 0.64 MG/DL (0.55-1.30); GLOMERULAR FILTRATION RATE > 60.0 (>39); GLUCOSE, FASTING 330 MG/DL (70-100); MAGNESIUM LEVEL 1.9 MG/DL (1.8-2.4); POTASSIUM SERUM 5.1 MEQ/L (3.5-5.1); SODIUM LEVEL 136 MEQ/L (136-145); TROPONIN I 0.05 NG/ML (< 0.10)
[2019-03-22 11:45] LABS: OSMOLALITY SERUM 294 MOSM/KG (280-301)
[2019-03-22 12:00] VITALS: BP 120/58
--- NOTE | 2019-03-22 12:30 | ECGEPIP ---
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
[2019-03-22 12:42] LABS: OSMOLALITY URINE 684 MOSM/KG (500-800)
--- NOTE | 2019-03-22 12:54 | ECHO ---
DATE OF STUDY: 03/22/2019 REFERRING PHYSICIAN: Dr. Vern Gonzalez INDICATION: Cardiac dysrhythmias unspecified. HEIGHT: 157 cm. WEIGHT: 59 kg. 2D MEASUREMENTS: Aortic annulus 1.9 cm Left atrium 3.1 cm Aortic root 2.9 cm Ventricular septum 1.19 cm Posterior wall 1.18 cm Left ventricle diastole 4.6 cm Inferior vena cava 1.7 cm DOPPLER MEASUREMENTS: No aortic stenosis. No aortic regurgitation. Aortic valve velocity 247 cm/s LVOT velocity 132 cm/s LVOT VTI 28.8 cm Trace mitral regurgitation. Mitral E velocity 101 cm/s Mitral A velocity 115 cm/s Mitral deceleration time 197 ms Pulmonary artery systolic pressure 30 mmHg MITRAL ANNULAR TISSUE DOPPLER: E prime septal 5.1 cm/s E prime lateral 7.2 cm/s DESCRIPTION: Rhythm was sinus. Image quality was adequate. No pericardial effusion. This was a 2D, M mode, color flow Doppler and pulse wave Doppler examination and included mitral annular tissue Doppler. CONCLUSIONS: 1. Normal left ventricle internal dimensions and wall thickness. Normal regional LV wall motion and wall thickening. Normal LV systolic function. LVEF 75% by visual estimate. Grade 1 LV diastolic dysfunction (impaired relaxation filling pattern). 2. Moderate aortic valve sclerosis of a three-cuspid aortic valve. No aortic stenosis or regurgitation. 3. Mild mitral annular calcification. Trace mitral regurgitation. No mitral stenosis. 4. Otherwise, normal appearing echocardiogram Doppler findings.
[2019-03-22 13:00] LABS: CHLORIDE,RANDOM URINE 159 MEQ/L; CREATININE,RANDOM URINE 64.5 MG/DL; POTASSIUM RANDOM URINE 36.3 MEQ/L; SODIUM,RANDOM URINE 101 MEQ/L
[2019-03-22 13:01] LABS: AMORPHOUS SEDIMENT SMALL (NEGATIVE); APPEARANCE, URINE CLEAR (CLEAR); BACTERIA, URINE AUTO NEGATIVE (NEGATIVE); BILIRUBIN, URINE AUTO NEGATIVE (NEGATIVE); BLOOD, URINE BLOOD NEGATIVE (NEGATIVE); COLOR, URINE YELLOW (YELLOW); GLUCOSE, URINE (UA) AUTO 3+ mg/dL (NEGATIVE); KETONE, URINE AUTO 1+ mg/dL (NEGATIVE); LEUKOCYTE ESTERASE, URINE AUTO TRACE (NEGATIVE); NITRITE, URINE AUTO NEGATIVE (NEGATIVE); PROTEIN, URINE AUTO NEGATIVE (NEGATIVE); RBC, URINE AUTO 0 /HPF (0-3); SPECIFIC GRAVITY URINE AUTO 1.022 (1.002-1.035); SQUAMOUS EPITHELIAL CELL UR AU 2 /HPF (0-6); UROBILINOGEN, URINE AUTO 0.2 mg/dL (0.0-2.0); WBC, URINE AUTO 2 /HPF (0-3)
[2019-03-22 16:00] VITALS: BP 131/63
--- NOTE | 2019-03-22 16:19 | IPNPDOC ---
Text Note Date of Service The patient was seen on 03/22/19. NOTE Subjective: Patient is a 74-year-old female with a PMHx of CAD, HTN, DLP, NIDDM2, Hx of CVA, COPD, Seizure disorder, Adrenal insufficiency, Hx of Bowel o bstruction / Diverticulitis, Hx of Magnesium deficiency who presented to the ER with complaints of palpitations / dizziness. At home. Patient began to experience palpitations and dizziness and contacted EMS, they found that her heart rate was 190, she received adenosine in the field and did not respond. On arrival to the ER. Patient again received adenosine and reverted to normal sinus rhythm. Lab work in the emergency room revealed several electrolyte abnormalities. Patient was admitted to the hospital service for further evaluation and treatment. Patient was seen and examined at the bedside. Currently patient denies chest pain or palpitations. . She does report some shortness of breath. Denies nausea or vomiting. Denies any abdominal pain, constipation, diarrhea, or urinary discomfort. Objective: Vitals (See below) General: Lying in bed, no acute distress, comfortable, AAOx3 HEENT: NC, AT CVS: RRR, +S1S2 Lungs: Fair air entry b/l, no wheezing, rales or rhonchi Abdomen: Soft, ND, NT Extremities: No evidence of LE edema, - Calf tenderness Assessment and plan: Shortness of breath - likely 2/2 palpitations - likely 2/2 SVT - likely 2/2 electrolyte abnormalities - Patient has had significant improvement in her symptoms - Remains hemodynamically stable - Patient's rhythm is now in sinus rhythm - Troponin trend has been negative - ECHO 03/22: EF 70%; G1DD, Moderate AV sclerosis / No stenosis / regurgitation, Mild mitral annular calcification - Will continue to follow Electrolyte abnormalities - etiology unclear - Patient has a history of arrhythmias from electronic abnormalities - She reports that she takes elective right supplementation as an outpatient - Patient was found to have hypocalcemia and hypomagnesemia - Electrodes have been corrected - Suspect electrolyte abnormality could be a result of malabsorption / renal loss - Renal workup completed; suggesting GI losses - Celiac workup pending Non-AG metabolic acidosis - Improving - Urine anion gap of -21; suggesting GI losses - s/p IV fluid hydration Normocytic anemia - Hg on admission of 8.0; however, subsequent Hg have been approximately 12 - No evidence of bleeding - Will continue to follow - Will resume ASA 325 daily L Radial fracture s/p Casting - Follows with Dr. Damon; is scheduled for a cast replacement - Discussed with orthopedic surgery; will have outpatient follow up on discharge DLP - c/w Atorvastatin NIDDM2 - c/w ISS Hx of CVA COPD - no evidence of exacerbation - c/w Inhaled therapy as ordered Seizure disorder - c/w Valproic acid Adrenal insufficiency - c/w Hydrocortisone Hx of Bowel obstruction / Diverticulitis DVT prophylaxis - Will start Heparin VS,Fishbone, I+O VS, Fishbone, I+O Laboratory Tests 03/22/19 00:53 Red Blood Count 2.48 L, Mean Corpuscular Volume 104.4 H, Mean Corpuscular Hemoglobin 32.3, Mean Corpuscular Hemoglobin Concent 30.9 L, Red Cell Distribu tion Width 14.8 H, Neutrophils (%) (Auto) 50.1, Lymphocytes (%) (Auto) 35.8, Monocytes (%) (Auto) 10.4 H, Eosinophils (%) (Auto) 2.1, Basophils (%) (Auto) 0.5, Neutrophils # (Auto) 4.9, Lymphocytes # (Auto) 3.5, Monocytes # (Auto) 1.0 H, Eosinophils # (Auto) 0.2, Basophils # (Auto) 0.1, Calcium Level 6.0 L 03/22/19 06:07 Red Blood Count 3.82 L, Mean Corpuscular Volume 99.7 H, Mean Corpuscular Hemoglobin 31.7, Mean Corpuscular Hemoglobin Concent 31.8 L, Red Cell Distribution Width 14.7 H, Calcium Level 7.6 #L, Total Creatine Kinase 33 03/22/19 10:47 Red Blood Count 3.59 L, Mean Corpuscular Volume 98.9 H, Mean Corpuscular Hemoglobin 32.3, Mean Corpuscular Hemoglobin Concent 32.7, Red Cell Distribution Width 14.6 H, Neutrophils (%) (Auto) 89.9 H, Lymphocytes (%) (Auto) 7.7 L, Monocytes (%) (Auto) 1.2, Eosinophils (%) (Auto) 0.0, Basophils (%) (Auto) 0.3, Neutrophils # (Auto) 10.0 H, Lymphocytes # (Auto) 0.9 L, Monocytes # (Auto) 0.1, Eosinophils # (Auto) 0.0, Basophils # (Auto) 0.0, Calcium Level 8.1 L, Total Creatine Kinase 30 Vital Signs Date Time Temp Pulse Resp B/P (MAP) Pulse Ox O2 Delivery O2 Flow Rate FiO2 03/22/19 13:41 99.4 70 18 120/58 97 2.0 03/22/19 00:47 Room Air I&O- Last 24 Hours up to 6 AM 03/22/19 06:00 Intake Total 0 ml Output Total 150 ml Balance -150 ml SALVADOR LANGFORD MD March 22, 2019 16:19
[2019-03-22 20:00] VITALS: BP 135/84
[2019-03-22] MEDS: ATORVASTATIN 20 MG TAB PO SCH (20:58)
[2019-03-22] MEDS: HEPARIN SOD (PORCINE) 5000 UNITS/ML VIAL SQ SCH (20:58)
[2019-03-23] VITALS: BP 123/66
[2019-03-23 04:00] VITALS: BP 141/83
[2019-03-23] MEDS: NORCO, ANEXSIA 5/325MG TABLET (HYDROcodone/ACETAMINOPHEN) PO PRN ×3 (04:31→22:10)
[2019-03-23 04:45] LABS: BASO % 0.1 % (0.0-1.0); EOS % 0.1 % (0.0-3.0); HEMATOCRIT 34.1 % (36.0-47.0); HEMOGLOBIN 11.1 g/dl (12.0-15.5); LYMPH % 12.6 % (24.0-44.0); MEAN CORPUSCULAR HEMOGLOBIN 31.4 pg (27.0-33.0); MEAN CORPUSCULAR HGB CONC 32.6 g/dl (32.0-36.5); MEAN CORPUSCULAR VOLUME 96.3 fl (80.0-96.0); MONO # 1.5 10^3/uL (0.0-0.8); NEUTROPHILS # 12.6 10^3/uL (1.8-7.7); NEUTROPHILS % 77.8 % (36.0-66.0); PLATELET COUNT, AUTOMATED 433 10^3/uL (150-450); RED BLOOD COUNT 3.54 10^6/uL (4.00-5.40); WHITE BLOOD COUNT 16.2 10^3/uL (4.0-10.0)
[2019-03-23 05:03] LABS: ALBUMIN 2.5 GM/DL (3.2-5.2); ALT/SGPT 11 U/L (12-78); BILIRUBIN,TOTAL 0.2 MG/DL (0.2-1.0); BLOOD UREA NITROGEN 8 MG/DL (7-18); CALCIUM LEVEL 8.6 MG/DL (8.8-10.2); CARBON DIOXIDE LEVEL 22 MEQ/L (21-32); CHLORIDE LEVEL 106 MEQ/L (98-107); CREATININE FOR GFR 0.48 MG/DL (0.55-1.30); GLOMERULAR FILTRATION RATE > 60.0 (>39); GLUCOSE, FASTING 188 MG/DL (70-100); MAGNESIUM LEVEL 1.4 MG/DL (1.8-2.4); POTASSIUM SERUM 4.9 MEQ/L (3.5-5.1); SODIUM LEVEL 134 MEQ/L (136-145); TOTAL PROTEIN 5.6 GM/DL (6.4-8.2)
[2019-03-23] MEDS ORDERED: MAG SULF 1GM/100ML (MAG RUN) 1 GM in APPROPRIATE DILUENT 1 EA IV ONE (05:30)
[2019-03-23] MEDS: ADVAIR HFA 230/21MCG INHALER INH SCH ×2 (07:27→20:20)
[2019-03-23 08:00] VITALS: BP 140/68
[2019-03-23] MEDS: MAG SULF 1GM/100ML (MAG RUN) 1 GM in APPROPRIATE DILUENT 1 EA IV SCH ×2 (08:28→09:31)
[2019-03-23] MEDS: HumaLOG INSULIN (NovoLOG) PER UNIT SC SCH ×4 (09:26→21:00)
[2019-03-23] MEDS: busPIRone 5 MG TAB PO SCH ×2 (09:27→22:45)
[2019-03-23] MEDS: ASPIRIN 325 MG TAB PO SCH (09:27)
[2019-03-23] MEDS: MAGNESIUM CHLORIDE 64 MG TABCR (SLO MAG) PO SCH (09:27)
[2019-03-23] MEDS: VITAMIN D 1,000 INTERNATIONAL UNITS TABLET PO SCH (09:27)
[2019-03-23] MEDS: HEPARIN SOD (PORCINE) 5000 UNITS/ML VIAL SQ SCH ×2 (09:27→22:47)
[2019-03-23] MEDS: HYDROCORTISONE 10 MG TAB PO SCH ×2 (09:28→22:46)
[2019-03-23] MEDS: FERROUS SULFATE 325MG TAB PO SCH ×3 (09:28→22:44)
[2019-03-23] MEDS: CALCIUM/VITAMIN D 500 MG TAB PO SCH ×3 (09:28→22:44)
[2019-03-23] MEDS: NICOTINE 21MG/24HR 1 EA TRANSDERMAL TD SCH (09:28)
[2019-03-23] MEDS: VALPROIC ACID 250 MG CAP PO SCH ×3 (09:29→22:46)
[2019-03-23] MEDS: METOPROLOL TART 25 MG TABLET PO SCH ×2 (09:30→22:47)
[2019-03-23 09:51] LABS: FOLATE 12.6 NG/ML; PTH INTACT 38.3 PG/ML (18.5-88.0)
[2019-03-23 12:00] VITALS: BP 145/73
--- NOTE | 2019-03-23 15:54 | IPNPDOC ---
Date Seen The patient was seen on 03/23/19. Progress Note SUBJECTIVE: Patient complains of irritation regarding her left arm cast. She tells me she is feeling better than previous days but not back to her normal she denies fevers chills chest pressure shortness breath. The shortness of breath which prompted her to come to the hospital has improved significantly OBJECTIVE PHYSICAL EXAMINATION: VITAL SIGNS: Please see below. GENERAL: Frail elderly female sitting in bed she is awake alert oriented 3 no acute distress HEENT: Cranial nerves grossly intact CARDIOVASCULAR: Is 1 S2 regular she is not tachycardic noticed heart sounds appreciated. RESPIRATORY: Prolonged expiratory phase no audible wheeze but diminished air movement. ABDOMINAL: Bowel sounds are present abdomen soft and nontender EXTREMITIES: No edema NEUROLOGICAL: No focal deficits LABORATORY DATA, IMAGING STUDIES, MICROBIOLOGY: Please see below. Echocardiogram: 1. Normal left ventricle internal dimensions and wall thickness. Normal regional LV wall motion and wall thickening. Normal LV systolic function. LVEF 75% by visual estimate. Grade 1 LV diastolic dysfunction (impaired relaxation filling pattern). 2. Moderate aortic valve sclerosis of a three-cuspid aortic valve. No aortic stenosis or regurgitation. 3. Mild mitral annular calcification. Trace mitral regurgitation. No mitral stenosis. 4. Otherwise, normal appearing echocardiogram Doppler findings.. DVT prophylaxis ordered?: Heparin ASSESSMENT AND PLAN: This is a 74-year-old female who presented with shortness of breath found to be in SVT PROBLEMS: 1. Shortness of breath: Secondary to SVT secondary likely to normality. SVT has resolved patient shortness of breath essentially resolved. Echocardiogram reveals grade 1 diastolic dysfunction but otherwise the patient is doing quite well. I think she would benefit from an outpatient cardiology referral and possible Holter monitoring. For the time being and appears though her arrhythmias resolved secondary to her electrolyte imbalance. 2. Normality: Hypocalcemia hypomagnesemia. Patient has been told she is deficie nt in these only within the last year or so. Her calcium is improving however magnesium was still quite low despite oral supplementation I'll provide her with 2 magnesium runs IV and check a fractional excretion of magnesium to help delineate whether her losses or via the tract versus GI tract. My suspicion that it is from the GI tract. We'll recheck her magnesium this afternoon 3. Non-AG metabolic acidosis: Possibly secondary to diarrhea appears to be resolved. Continue to monitor. Should she have no further diarrhea her anion gap remain closed and resolved her magnesium remain elevated I suspect she can be dispositioned home as early as tomorrow 4. Iron deficiency anemia: Continue iron supplementation hemoglobin stable continue with aspirin. Initial hemoglobin likely lab error remained essentially unchanged for several days 5. L Radial fracture s/p Casting: Patient is extremely frustrated with her cast for stenosis did have a pale appointment with orthopedics today which that may have been removed we are unable to get an appointment for tomorrow with the surgery is a former is extensive and will not see her while she is hospitalized for this purpose. Patient will follow-up as an outpatient have this addressed and potentially removed or changed 6. DLP:c/w Atorvastatin 7. NIDDM2: c/w ISS 8. Hx of CVA: Patient is on aspirin and statin 9. COPD: She is at her baseline respiratory status no evidence of any exacerbation, no evidence of exacerbation, c/w Inhaled therapy as ordered 10. Seizure disorder: c/w Valproic acid 11. Adrenal insufficiency: c/w Hydrocortisone chronic and stable DISPOSITION: Possible pulmonary 24 -r 48 hours. VS, I&O, [facility] V[facility] Signs/I&O Vital Signs Date Time Temp Pulse Resp B/P (MAP) Pulse Ox O2 Delivery O2 Flow Rate FiO2 03/23/19 14:40 18 03/23/19 12:00 97.7 69 145/73 (97) 98 03/22/19 13:41 2.0 03/22/19 00:47 Room Air I&O- Last 24 Hours up to 6 AM 03/23/19 05:59 Intake Total 383 ml Output Total 600 ml Balance -217 ml Laboratory Data 24H LABS Laboratory Tests 2 03/22/19 17:51: Bedside Glucose (Misc Panel) 227H 03/22/19 20:46: Bedside Glucose (Misc Panel) 221H 03/23/19 04:23: Immature Granulocyte % (Auto) 0.4, White Blood Count 16.2H, Red Blood Count 3.54L, Hemoglobin 11.1L, Hematocrit 34.1L, Mean Corpuscular Volume 96.3H, Mean Corpuscular Hemoglobin 31.4, Mean Corpuscular Hemoglobin Concent 32.6, Red Cell Distribution Width 14.6H, Platelet Count 433, Neutrophils (%) (Auto) 77.8H, Lymphocytes (%) (Auto) 12.6L, Monocytes (%) (Auto) 9.0H, Eosinophils (%) (Auto) 0.1, Basophils (%) (Auto) 0.1, Neutrophils # (Auto) 12.6H, Lymphocytes # (Auto) 2.0, Monocytes # (Auto) 1.5H, Eosinophils # (Auto) 0.0, Basophils # (Auto) 0.0, Nucleated Red Blood Cells % (auto) 0.0, Anion Gap 6L, Glomerular Filtration Rate > 60.0, Blood Urea Nitrogen 8, Creatinine 0.48L, Sodium Level 134L, Potassium Level 4.9, Chloride Level 106, Carbon Dioxide Level 22, Calcium Level 8.6L, Aspartate Amino Transf (AST/SGOT) 12, Alanine Aminotransferase (ALT/SGPT) 11L, Alkaline Phosphatase 47, Total Bilirubin 0.2#, Total Protein 5.6#L, Albumin 2.5#L, Magnesium Level 1.4L, Albumin/Globulin Ratio 0.81L 03/23/19 12:42: Bedside Glucose (Misc Panel) 181H CBC/BMP Laboratory Tests 03/23/19 04:23 Red Blood Count 3.54 L, Mean Corpuscular Volume 96.3 H, Mean Corpuscular Hemoglobin 31.4, Mean Corpuscular Hemoglobin Concent 32.6, Red Cell Distribution Width 14.6 H, Neutrophils (%) (Auto) 77.8 H, Lymphocytes (%) (Auto) 12.6 L, Monocytes (%) (Auto) 9.0 H, Eosinophils (%) (Auto) 0.1, Basophils (%) (Auto) 0.1, Neutrophils # (Auto) 12.6 H, Lymphocytes # (Auto) 2.0, Monocytes # (Auto) 1.5 H, Eosinophils # (Auto) 0.0, Basophils # (Auto) 0.0, Calcium Level 8.6 L, Aspartate Amino Transf (AST/SGOT) 12, Alanine Aminotransferase (ALT/SGPT) 11 L, Alkaline Phosphatase 47, Total Bilirubin 0.2 #, Total Protein 5.6 #L, Albumin 2.5 #L LIOR RODRIGUEZ MD March 23, 2019 15:54
[2019-03-23 16:00] VITALS: BP 132/72
[2019-03-23] MEDS: IPRATROPIUM 0.5MG/ALBUTEROL 2.5MG INH SOL UD 3ML (DUONEB)(J7620) INH PRN ×2 (16:34→23:15)
[2019-03-23] MEDS: ACETAMINOPHEN TAB 650MG DOSE (2X325MG) PO PRN (17:54)
[2019-03-23 20:00] VITALS: BP 142/73
[2019-03-23 20:45] LABS: CREATININE,RANDOM URINE 69.1 MG/DL
[2019-03-23] MEDS: rOPINIRole 1MG TAB PO SCH (22:44)
[2019-03-23] MEDS: ATORVASTATIN 20 MG TAB PO SCH (22:45)
[2019-03-24] VITALS: BP 125/60
[2019-03-24 04:00] VITALS: BP 154/67
[2019-03-24 05:21] LABS: BASO % 0.1 % (0.0-1.0); EOS % 0.3 % (0.0-3.0); HEMATOCRIT 33.7 % (36.0-47.0); HEMOGLOBIN 11.1 g/dl (12.0-15.5); LYMPH # 2.2 10^3/uL (1.5-4.5); LYMPH % 18.3 % (24.0-44.0); MEAN CORPUSCULAR HEMOGLOBIN 31.4 pg (27.0-33.0); MEAN CORPUSCULAR HGB CONC 32.9 g/dl (32.0-36.5); MEAN CORPUSCULAR VOLUME 95.2 fl (80.0-96.0); MONO # 1.2 10^3/uL (0.0-0.8); MONO % 10.1 % (0.0-5.0); NEUTROPHILS # 8.4 10^3/uL (1.8-7.7); NEUTROPHILS % 70.6 % (36.0-66.0); PLATELET COUNT, AUTOMATED 458 10^3/uL (150-450); RED BLOOD COUNT 3.54 10^6/uL (4.00-5.40); WHITE BLOOD COUNT 11.9 10^3/uL (4.0-10.0)
[2019-03-24 05:47] LABS: ALBUMIN 2.7 GM/DL (3.2-5.2); ALT/SGPT 9 U/L (12-78); BILIRUBIN,TOTAL 0.2 MG/DL (0.2-1.0); BLOOD UREA NITROGEN 9 MG/DL (7-18); CALCIUM LEVEL 8.6 MG/DL (8.8-10.2); CARBON DIOXIDE LEVEL 28 MEQ/L (21-32); CHLORIDE LEVEL 102 MEQ/L (98-107); CREATININE FOR GFR 0.56 MG/DL (0.55-1.30); GLOMERULAR FILTRATION RATE > 60.0 (>39); GLUCOSE, FASTING 146 MG/DL (70-100); MAGNESIUM LEVEL 1.6 MG/DL (1.8-2.4); POTASSIUM SERUM 5.1 MEQ/L (3.5-5.1); SODIUM LEVEL 134 MEQ/L (136-145); TOTAL PROTEIN 5.5 GM/DL (6.4-8.2)
[2019-03-24] MEDS: ACETAMINOPHEN TAB 650MG DOSE (2X325MG) PO PRN ×3 (06:48→23:42)
[2019-03-24 08:00] VITALS: BP 136/70
[2019-03-24] MEDS: ADVAIR HFA 230/21MCG INHALER INH SCH ×2 (08:40→20:30)
[2019-03-24] MEDS: HumaLOG INSULIN (NovoLOG) PER UNIT SC SCH ×4 (09:41→21:00)
[2019-03-24] MEDS: NICOTINE 21MG/24HR 1 EA TRANSDERMAL TD SCH (09:41)
[2019-03-24] MEDS: MAGNESIUM CHLORIDE 64 MG TABCR (SLO MAG) PO SCH (09:41)
[2019-03-24] MEDS: busPIRone 5 MG TAB PO SCH ×2 (09:42→21:14)
[2019-03-24] MEDS: ASPIRIN 325 MG TAB PO SCH (09:42)
[2019-03-24] MEDS: HYDROCORTISONE 10 MG TAB PO SCH ×2 (09:42→21:14)
[2019-03-24] MEDS: VALPROIC ACID 250 MG CAP PO SCH ×3 (09:42→21:14)
[2019-03-24] MEDS: METOPROLOL TART 25 MG TABLET PO SCH ×2 (09:43→21:16)
[2019-03-24] MEDS: VITAMIN D 1,000 INTERNATIONAL UNITS TABLET PO SCH (09:44)
[2019-03-24] MEDS: FERROUS SULFATE 325MG TAB PO SCH ×3 (09:44→21:16)
[2019-03-24] MEDS: CALCIUM/VITAMIN D 500 MG TAB PO SCH ×3 (09:44→21:12)
[2019-03-24] MEDS: HEPARIN SOD (PORCINE) 5000 UNITS/ML VIAL SQ SCH ×2 (09:45→21:15)
[2019-03-24] MEDS: NORCO, ANEXSIA 5/325MG TABLET (HYDROcodone/ACETAMINOPHEN) PO PRN (09:56)
[2019-03-24] MEDS: IPRATROPIUM 0.5MG/ALBUTEROL 2.5MG INH SOL UD 3ML (DUONEB)(J7620) INH PRN ×2 (11:04→15:20)
[2019-03-24 12:00] VITALS: BP_SYST 126; BP_SYST 140; BP_DIAS 74; BP_DIAS 80
[2019-03-24] MEDS ORDERED: MAG SULF 1GM/100ML (MAG RUN) 1 GM in APPROPRIATE DILUENT 1 EA IV ONE (12:00)
--- NOTE | 2019-03-24 12:46 | IPNPDOC ---
Date Seen The patient was seen on 03/24/19. Progress Note SUBJECTIVE: Patient denies diarrhea denies frequent urination tells me that she has some shortness of breath with this is her normal denies fevers chills nausea vomiting or diarrhea she denies chest pressure OBJECTIVE PHYSICAL EXAMINATION: VITAL SIGNS: Please see below. GENERAL: Frail elderly female sitting in bed she is awake alert oriented 3 no acute distress HEENT: Cranial nerves grossly intact CARDIOVASCULAR: s1 S2 regular she is not tachycardic noticed heart sounds appreciated. RESPIRATORY: Prolonged expiratory phase no diffuse end expiratory wheeze ABDOMINAL: Bowel sounds are present abdomen soft and nontender EXTREMITIES: No edema, left arm is wrapped and swelling and good pulses no swelling NEUROLOGICAL: No focal deficits LABORATORY DATA, IMAGING STUDIES, MICROBIOLOGY: Please see below. Echocardiogram: 1. Normal left ventricle internal dimensions and wall thickness. Normal regional LV wall motion and wall thickening. Normal LV systolic function. LVEF 75% by visual estimate. Grade 1 LV diastolic dysfunction (impaired relaxation filling pattern). 2. Moderate aortic valve sclerosis of a three-cuspid aortic valve. No aortic stenosis or regurgitation. 3. Mild mitral annular calcification. Trace mitral regurgitation. No mitral stenosis. 4. Otherwise, normal appearing echocardiogram Doppler findings.. DVT prophylaxis ordered?: Heparin ASSESSMENT AND PLAN: This is a 74-year-old female who presented with shortness of breath found to be in SVT PROBLEMS: 1. Shortness of breath: Secondary to SVT secondary likely secondary to e lectrolyte abnormality. SVT has resolved patient shortness of breath essentially resolved. She did complain of some shortness of breath this morning however she is saturating 100% on room air and his known COPD and does further elaborate that this is chronic for her. Echocardiogram reveals grade 1 diastolic dysfunction but otherwise the patient is doing quite well. I think she would benefit from an outpatient cardiology referral. For the time being and appears though her arrhythmias resolved secondary to her electrolyte imbalance. 2. Electrolyte abnormality: Hypocalcemia hypomagnesemia. Patient has been told she is deficient in these only within the last year or so. Her calcium is improving however magnesium was still quite low despite oral supplementation and IV yesterday. I do not have a clear etiology for her low magnesium levels and every Saturday Dr. Bello nephrology to assist. 3. Non-AG metabolic acidosis: Possibly secondary to diarrhea appears to be resolved. Continue to monitor. Should she have no further diarrhea her anion gap remain closed and resolved her magnesium remain elevated I suspect she can be dispositioned home as early as tomorrow 4. Iron deficiency anemia: Continue iron supplementation hemoglobin stable continue with aspirin. Initial hemoglobin likely lab error remained essentially unchanged for several days 5. L Radial fracture s/p Casting with cast removal overnight: Nursing did speak with orthopedic surgery yesterday stated they were not present to evaluate her cast while hospitalized the patient had significant discomfort overnight and night hospital stay were able to alleviate her symptoms by removing the cast I will check a PA and lateral today the patient will require further outpatient follow-up with orthopedic surgery 6. DLP:c/w Atorvastatin 7. NIDDM2: c/w ISS 8. Hx of CVA: Patient is on aspirin and statin 9. COPD: She is at her baseline respiratory status no evidence of any exacerbation, no evidence of exacerbation, c/w Inhaled therapy as ordered 10. Seizure disorder: c/w Valproic acid 11. Adrenal insufficiency: c/w Hydrocortisone chronic and stable DISPOSITION: Possible pulmonary 24 -r 48 hours. VS, I&O, 24H, Fishbone Vital Signs/I&O Vital Signs Date Time Temp Pulse Resp B/P (MAP) Pulse Ox O2 Delivery O2 Flow Rate FiO2 03/24/19 12:00 98.4 70 18 140/80 (100) 95 03/22/19 13:41 2.0 03/22/19 00:47 Room Air I&O- Last 24 Hours up to 6 AM 03/24/19 05:59 Intake Total 1260 ml Output Total 3150 ml Balance -1890 ml Laboratory Data 24H LABS Laboratory Tests 2 03/23/19 12:42: Bedside Glucose (Misc Panel) 181H 03/23/19 15:48: Magnesium Level 2.2 03/23/19 17:36: Bedside Glucose (Misc Panel) 152H 03/23/19 19:49: Urine Random Creatinine 69.1, Urine Random Magnesium 46.0 03/23/19 22:53: Bedside Glucose (Misc Panel) 171H 03/24/19 05:01: Immature Granulocyte % (Auto) 0.6, White Blood Count 11.9H, Red Blood Count 3.54L, Hemoglobin 11.1L, Hematocrit 33.7L, Mean Corpuscular Volume 95.2, Mean Corpuscular Hemoglobin 31.4, Mean Corpuscular Hemoglobin Concent 32.9, Red Cell Distribution Width 14.4, Platelet Count 458H, Neutrophils (%) (Auto) 70.6H, Lymphocytes (%) (Auto) 18.3L, Monocytes (%) (Auto) 10.1H, Eosinophils (%) (Auto) 0.3, Basophils (%) (Auto) 0.1, Neutrophils # (Auto) 8.4H, Lymphocytes # (Auto) 2.2, Monocytes # (Auto) 1.2H, Eosinophils # (Auto) 0.0, Basophils # (Auto) 0.0, Nucleated Red Blood Cells % (auto) 0.0, Anion Gap 4L, Glomerular Filtration Rate > 60.0, Blood Urea Nitrogen 9, Creatinine 0.56, Sodium Level 134L, Potassium Level 5.1, Chloride Level 102, Carbon Dioxide Level 28, Calcium Level 8.6L, Aspartate Amino Transf (AST/SGOT) 10, Alanine Aminotransferase (ALT/SGPT) 9L, Alkaline Phosphatase 47, Total Bilirubin 0.2, Total Protein 5.5L, Albumin 2.7L, Magnesium Level 1.6L, Albumin/Globulin Ratio 0.96L 03/24/19 06:06: Bedside Glucose (Misc Panel) 144H 03/24/19 12:08: Bedside Glucose (Misc Panel) 157H CBC/BMP Laboratory Tests 03/24/19 05:01 Red Blood Count 3.54 L, Mean Corpuscular Volume 95.2, Mean Corpuscular Hemoglobin 31.4, Mean Corpuscular Hemoglobin Concent 32.9, Red Cell Distribution Width 14.4, Neutrophils (%) (Auto) 70.6 H, Lymphocytes (%) (Auto) 18.3 L, Monocytes (%) (Auto) 10.1 H, Eosinophils (%) (Auto) 0.3, Basophils (%) (Auto) 0.1, Neutrophils # (Auto) 8.4 H, Lymphocytes # (Auto) 2.2, Monocytes # (Auto) 1.2 H, Eosinophils # (Auto) 0.0, Basophils # (Auto) 0.0, Calcium Level 8.6 L, Aspartate Amino Transf (AST/SGOT) 10, Alanine Aminotransferase (ALT/SGPT) 9 L, Alkaline Phosphatase 47, Total Bilirubin 0.2, Total Protein 5.5 L, Albumin 2.7 L Microbiology Microbiology 03/23/19 Stool Occult Blood (KENYA) - Final, Complete LIOR RODRIGUEZ MD March 24, 2019 12:46
[2019-03-24] MEDS: MAGNESIUM GLUCONATE 500 MG TAB PO SCH ×3 (14:24→21:12)
--- NOTE | 2019-03-24 15:50 | REP ---
LEFT WRIST, TWO VIEWS: HISTORY: Fracture. COMPARISON: 03/12/2019 A splint is present and obscuring detail. There is a comminuted fracture of the distal radius. There is minimal anterior displacement of a distal fracture fragment. There is no dislocation. IMPRESSION: Comminuted fracture of the distal radius with minimal anterior displacement of a distal fracture fragment. Electronically Signed by Emile Moraes MD 03/24/2019 03:51 P
[2019-03-24 16:00] VITALS: BP 132/64
[2019-03-24 20:00] VITALS: BP 134/71
[2019-03-24] MEDS: rOPINIRole 1MG TAB PO SCH (21:13)
[2019-03-24] MEDS: ATORVASTATIN 20 MG TAB PO SCH (21:15)
[2019-03-25] VITALS: BP 138/65
[2019-03-25 00:06] LABS: ENDOMYSIAL ABY IgA Negative (Negative); TISSUE TRANSGLUTAMINASE IgA <2 U/mL (0-3)
[2019-03-25] MEDS: NORCO, ANEXSIA 5/325MG TABLET (HYDROcodone/ACETAMINOPHEN) PO PRN ×2 (01:51→08:02)
--- NOTE | 2019-03-25 04:12 | CR ---
DATE OF VISIT: 03/24/2019 REASON FOR CONSULTATION: She was admitted to [facility] on March 22 due to generalized weakness and rapid heart rate. She has history of palpitations and dizziness even in the past. She has history of supraventricular tachycardia (SVT) previously and her heart rate was 190 per minute by emergency medical services (EMS). She was treated with adenosine which did not help much. She had another dose of adenosine 12 mg in the emergency room (ER) with good results. She was found to have a magnesium level which was low and improved with supplement. However, she has developed low magnesium again due to which he nephrology consultation was requested. PAST MEDICAL AND SURGICAL HISTORY: Significant for 1. Hypertension. 2. Dyslipidemia. 3. Chronic obstructive pulmonary disease (COPD). 4. Diabetes type 2. 5. Coronary artery disease. 6. History of seizure disorder. 7. History of adrenal insufficiency. 8. History of prior stroke. 9. History of bowel obstruction and diverticulitis. 10. History of magnesium deficiency. PAST SURGICAL HISTORY: Past surgical history is significant for hysterectomy and a breast biopsy for a cyst removal. MEDICATIONS: Her home medications include: - Fosamax 70 mg once a week - amlodipine 5 mg daily - atorvastatin 20 mg daily - buspirone 5 mg twice a day - vitamin D 1000 units daily - enalapril 20 mg daily - Breo Ellipta inhaler 1 puff at bedtime - hydrocortisone 30 mg daily - magnesium chloride 71.5 mg twice a day - metformin 1000 mg twice a day - metoprolol 25 mg twice a day - spironolactone 25 mg daily - valproic acid 250 mg three times a day - Requip 1 mg at bedtime ALLERGIES: She has allergy to PROPOXYPHENE. PERSONAL AND SOCIAL HISTORY: The patient does not smoke or drink. She lives with her family. FAMILY HISTORY: Family history is noncontributory for this admission. REVIEW OF SYSTEMS: She denies any fever or chills. She has history of recurrent diarrhea and loose stools. Ears, nose and throat are unremarkable. She does feel dizzy frequently. Cardiovascular system is significant for tachy arrhythmias. She was treated for SVT on this admission. Respiratory system is significant for COPD. She denies any hemoptysis or pleuritic type chest pain. Gastrointestinal (GI) system is significant for on and off diarrhea but denies any vomiting. Genitourinary () system is negative for dysuria or hematuria. Endocrine system is significant for type 2 diabetes. Hematological system is negative for anticoagulation. She denies any rectal bleeding or excessive bruising. Neurological system is significant for prior stroke, restless leg syndrome. PHYSICAL EXAMINATION: Elderly female lying in the bed without any acute distress. She has a plaster cast on her left arm. Temperature 98 degrees Fahrenheit, heart rate 88 per minute and respiratory rate 18 per minute. Blood pressure 132/64 mmHg and oxygen saturation 94% on room air. Head is atraumatic. Ears, nose and throat are unremarkable. Neck is supple and without jugular venous distention (JVD) or thyroid enlargement. Heart sounds are regular. Lungs clear to auscultation. Abdomen is soft and nontender and without a palpable organomegaly. Bowel sounds are normal. Extremities have no cyanosis or clubbing. She has a cast on her left arm. Neurologically, she is awake, alert and oriented x3. LABORATORY DATA: Sodium is 134, potassium 5.1, CO2 28, BUN 9 and creatinine 0.56. A magnesium level is 1.6 today. Her initial magnesium level was 1.0 on admission which improved up to 2.2 after supplementation but has come down to 1.6 again. Urinalysis showed 3+ glucose and 1+ ketones. White blood cell (WBC) count is 11.9, hemoglobin 11.1 and hematocrit 33.7. PROBLEMS: Recurrent hypomagnesemia. Most likely due to gastrointestinal (GI) losses. She has history of recurrent diarrhea. She is probably not absorbing much magnesium from her oral supplementation. Will give her another dose of intravenous magnesium sulfate today and recheck her electrolytes including magnesium level tomorrow morning. We will also change her oral supplement to magnesium gluconate 500 mg twice a day and see if she can tolerate that better. We will probably have to increase her oral supplementation of magnesium. I will also suggest further investigations for her recurrent diarrhea which is probably contributing to her hypomagnesemia, if not causing rate. She has been on chronic metformin which could be contributing to her loose stools. Thank you for involving me in the care of Ms. Solano. I will follow her along with you.
[2019-03-25 04:33] VITALS: BP 155/66
[2019-03-25 05:00] VITALS: BP 155/65
[2019-03-25 05:59] LABS: BASO % 0.4 % (0.0-1.0); EOS # 0.1 10^3/uL (0.0-0.50); EOS % 0.6 % (0.0-3.0); HEMATOCRIT 36.1 % (36.0-47.0); HEMOGLOBIN 11.5 g/dl (12.0-15.5); LYMPH # 3.1 10^3/uL (1.5-4.5); MEAN CORPUSCULAR HEMOGLOBIN 31.4 pg (27.0-33.0); MEAN CORPUSCULAR HGB CONC 31.9 g/dl (32.0-36.5); MEAN CORPUSCULAR VOLUME 98.6 fl (80.0-96.0); MONO # 1.3 10^3/uL (0.0-0.8); MONO % 11.2 % (0.0-5.0); NEUTROPHILS # 6.8 10^3/uL (1.8-7.7); NEUTROPHILS % 59.9 % (36.0-66.0); PLATELET COUNT, AUTOMATED 423 10^3/uL (150-450); RED BLOOD COUNT 3.66 10^6/uL (4.00-5.40); WHITE BLOOD COUNT 11.4 10^3/uL (4.0-10.0)
[2019-03-25 06:25] LABS: ALBUMIN 2.4 GM/DL (3.2-5.2); ALT/SGPT 10 U/L (12-78); BILIRUBIN,TOTAL 0.3 MG/DL (0.2-1.0); BLOOD UREA NITROGEN 13 MG/DL (7-18); CALCIUM LEVEL 8.6 MG/DL (8.8-10.2); CARBON DIOXIDE LEVEL 28 MEQ/L (21-32); CHLORIDE LEVEL 103 MEQ/L (98-107); CREATININE FOR GFR 0.59 MG/DL (0.55-1.30); GLOMERULAR FILTRATION RATE > 60.0 (>39); GLUCOSE, FASTING 135 MG/DL (70-100); MAGNESIUM LEVEL 1.6 MG/DL (1.8-2.4); POTASSIUM SERUM 4.6 MEQ/L (3.5-5.1); SODIUM LEVEL 137 MEQ/L (136-145); TOTAL PROTEIN 5.5 GM/DL (6.4-8.2)
[2019-03-25] MEDS: ADVAIR HFA 230/21MCG INHALER INH SCH (07:28)
[2019-03-25] MEDS: NICOTINE 21MG/24HR 1 EA TRANSDERMAL TD SCH (07:58)
[2019-03-25] MEDS: HumaLOG INSULIN (NovoLOG) PER UNIT SC SCH ×2 (07:59→12:42)
[2019-03-25] MEDS: HEPARIN SOD (PORCINE) 5000 UNITS/ML VIAL SQ SCH (07:59)
[2019-03-25 08:00] VITALS: BP 134/72
[2019-03-25] MEDS: ASPIRIN 325 MG TAB PO SCH (08:00)
[2019-03-25] MEDS: VALPROIC ACID 250 MG CAP PO SCH (08:00)
[2019-03-25 08:01] VITALS: BP 155/65
[2019-03-25] MEDS: METOPROLOL TART 25 MG TABLET PO SCH (08:01)
[2019-03-25] MEDS: FERROUS SULFATE 325MG TAB PO SCH (08:01)
[2019-03-25] MEDS: busPIRone 5 MG TAB PO SCH (08:02)
[2019-03-25] MEDS: MAGNESIUM GLUCONATE 500 MG TAB PO SCH ×2 (08:02→12:39)
[2019-03-25] MEDS: VITAMIN D 1,000 INTERNATIONAL UNITS TABLET PO SCH (08:02)
[2019-03-25] MEDS: HYDROCORTISONE 10 MG TAB PO SCH (08:03)
[2019-03-25] MEDS: CALCIUM/VITAMIN D 500 MG TAB PO SCH (08:03)
[2019-03-25] MEDS: IPRATROPIUM 0.5MG/ALBUTEROL 2.5MG INH SOL UD 3ML (DUONEB)(J7620) INH PRN ×2 (11:02)
[2019-03-25 12:00] VITALS: BP 110/62
[2019-03-25] MEDS ORDERED: NICO21PAT TD (12:16)
[2019-03-25] MEDS ORDERED: MAGN500T6 PO (12:16)
[2019-03-25] MEDS: ACETAMINOPHEN TAB 650MG DOSE (2X325MG) PO PRN (12:38)
--- NOTE | 2019-03-25 15:38 | CR ---
DATE OF CONSULTATION: 03/25/2019 CHIEF COMPLAINT: Left wrist fracture. HISTORY: Laura is a 74-year-old woman who came into the hospital on 03/22/2019 with complaints of heart palpitations and dizziness. She had previously been seen in the emergency department by Dr. Erik Damon on 03/12/2019 for a left distal radius fracture that was displaced after a fall over an extension cord. She had been complaining of some swelling upon admission to the hospital and her cast was removed and she was placed in a short-arm Velcro wrist splint. PAST MEDICAL HISTORY: Chronic obstructive pulmonary disease (COPD), possible diabetes. MEDICATIONS: Include magnesium, Vicodin, hydrocortisone, valproic acid, aspirin, amlodipine, metoprolol, enalapril, vitamin D3, Tylenol, metformin and albuterol. ALLERGIES: DARVOCET. PHYSICAL EXAMINATION: She is a well-developed adult female patient in no acute distress. She is sitting comfortably in her hospital bed. She has a Velcro wrist brace on her left wrist. There is some bruising in the fingers. She has slight decreased sensation in the middle finger but can feel gross touch. She has intact range of motion in the fingers and elbow on the left side. Radiographs were reviewed of the wrist which show a comminuted displaced distal radius fracture. IMPRESSION: Left Colles fracture. RECOMMENDATIONS: We will go ahead and place her in a long-arm splint today. She will followup in our office for formal casting once she is discharged from the hospital. She understands and agrees. We discussed smoking cessation.
--- NOTE | 2019-03-25 15:54 | IPN ---
DATE OF VISIT: 03/25/2019 Mrs. Solano is seen this morning on her bedside. She is feeling better and wonders if she can go home today. She denies any nausea, vomiting, dyspnea or chest pain. PHYSICAL EXAMINATION: Temperature 97.0 degrees Fahrenheit, heart rate 92 per minute and respiratory rate 18 per minute. Blood pressure 155/65 mmHg and oxygen saturation 97% on room air. Head is atraumatic. Neck is supple and without jugular venous distention (JVD) or thyroid enlargement. Heart sounds are regular and lungs clear to auscultation. Abdomen is soft and nontender. Bowel sounds present. Extremities without any cyanosis or clubbing. Left arm is in a cast. Neurologically she is awake, alert and oriented times three. Today's labs show sodium 137, potassium 4.6, CO2 28, BUN 13 and creatinine 0.59. Magnesium level is 1.6 and calcium 8.6. PROBLEMS: 1. Hypomagnesemia. I was consulted for recurrent hypomagnesemia. She has history of recurrent diarrhea which is probably contributing to her low magnesium. I feel that metformin could be contributing to her a gastrointestinal (GI) problems and have suggested to consider stopping it. In the meantime we have started her on magnesium gluconate 500 mg three times a day. There is no change in magnesium level since yesterday and we will recheck her electrolytes tomorrow morning again if she is still here. From renal standpoint this issue can be managed as an outpatient as long as her magnesium is now stable. All her other electrolytes are now within normal range. 2. Recurrent diarrhea, probably related to medications or other issues, but I think it is worth a trial to try stopping her metformin for awhile and treat her with some other oral antidiabetic medication and see how she does. If her diarrhea gets resolved then her other electrolyte problems will be easy to correct. DISPOSITION: From a renal standpoint the patient can be discharged to home and followup as an outpatient. I will be happy to see her again in the office if needed for hypomagnesemia.
--- NOTE | 2019-03-25 21:37 | DSES ---
DATE OF ADMISSION: 03/22/2019 DATE OF DISCHARGE: DISCHARGE DIAGNOSIS: Supraventricular tachycardia (SVT). SECONDARY DIAGNOSES: 1. Hypomagnesemia. 2. Hypokalemia. 3. Diarrhea. 4. Non-anion gap metabolic acidosis. 5. Iron deficiency anemia. 6. Left radial fracture. 7. Dyslipidemia. 8. Insulin-dependent diabetes mellitus. 9. History of cerebrovascular accident (CVA). 10. Chronic obstructive pulmonary disease (COPD). 11. Seizure disorder. 12. Adrenal insufficiency. CONSULTS: Orthopedic surgery, Harmeet Gibbons M.D. Nephrology, Dr. Bello. HOSPITAL COURSE: The patient is a 74-year-old female who was admitted for shortness of breath. She was found in the emergency room (ER) to have supraventricular tachycardia (SVT) and fairly significant electrolyte abnormalities with her initial magnesium level of 1.0 and calcium of 6.0. The patient had been having some ongoing chronic diarrhea. It was not significant enough to order for a gastrointestinal (GI) PCR panel to be collected. She was started on aggressive supplementation, but did not improve and was seen by nephrology, who increased her supplementation and felt it may have been secondary to metformin use and recommended revisiting metformin use with her primary care provider and consider discontinuation of this medication. With correction of her electrolytes, her SVT did resolve. She did have some challenges with her left cast while hospitalized. It was quite uncomfortable for her and had to be removed overnight. After discussion with Dr. Guevara, an x-ray was completed and then she was recast by Dr. Harmeet Gibbons. SUBJECTIVE: This morning, the patient tells me that she is feeling well. She has no further shortness of breath. No nausea, vomiting, diarrhea. Would like to go home. OBJECTIVE: VITAL SIGNS: Temperature 98.7, pulse 78, respiratory rate 17, blood pressure 110/62, oxygen saturation 95% on room air. GENERAL: She is an elderly female sitting up in bed, does not appear to be in no acute distress. Awake, alert, oriented times three. HEENT: Cranial nerves II-XII are grossly intact. She has moist mucous membranes. No elevation of central venous pressure. CARDIOVASCULAR: S1, S2. She is not tachycardic. RESPIRATORY EXAMINATION: Quite clear. She has a prolonged inspiratory to expiratory phase, but no audible wheeze. ABDOMINAL EXAMINATION: Benign. EXTREMITIES: Her left wrist is braced, but no clubbing, cyanosis or edema. LABORATORY STUDIES: WBC 11.4, hemoglobin 11.5, platelet count 423. Chemistry panel: Sodium 137, potassium 4.6, chloride 103, bicarbonate 28, BUN 13, creatinine 0.5, magnesium level is 1.6. Occult stool for blood during her stay was negative. She had an x-ray of the left wrist on 03/24/2019 which revealed comminuted fracture of the distal radius with minimal anterior displacement of a distal fracture fragment. ASSESSMENT AND PLAN: This is a 74-year-old female with shortness of breath secondary to supraventricular tachycardia (SVT) secondary to hypomagnesemia and hypocalcemia. PROBLEMS: 1. Shortness of breath secondary to SVT. Resolved. This was likely secondary to hypomagnesemia and hypocalcemia, which was quite severe upon presentation. These have been supplemented and her symptoms have abated. She has not had any further SVT since her admission. She has been started on magnesium gluconate at high dose to maintain her levels. Dr. Bello does feel this is secondary to some mild chronic diarrhea related to metformin use. I recommend this medication to be discontinued. Will defer to her primary care provider; however, I do agree with him. She had an echocardiogram that revealed some grade 1 diastolic dysfunction, but she had no evidence of heart failure during her stay. She may benefit from an outpatient cardiology referral. 2. Hypocalcemia and hypomagnesemia. As outlined above. Resolved. Dr. Bello's help was greatly appreciated. 3. Non-anion gap metabolic acidosis. Resolved. Likely secondary to diarrhea at the time of her presentation. There was no infectious etiology and she still had several bowel movements a day, although not significant enough in order to collect a GI PCR panel on her. 4. Iron deficiency anemia. She was continued on iron supplementation. Her hemoglobin was stable. She did have an abnormality on her initial complete blood count (CBC), but it spontaneously resolved without any transfusions. 5. Left radial fracture status post casting. Orthopedic surgeon's help was greatly appreciated. It has been recast and she had an x-ray today. She will require outpatient followup with orthopedic surgery. 6. Dyslipidemia. She is to continue on atorvastatin. 7. Type 2 diabetes. She was on insulin sliding scale while hospitalized. Regarding her metformin, as outlined above. 8. History of a cerebrovascular accident (CVA). She is to continue on aspirin and statin. 9. Chronic obstructive pulmonary disease (COPD). She is at her baseline respiratory status with no evidence of exacerbation during this stay. 10. Seizure disorder. She was continued on her valproic acid. 11. Adrenal insufficiency. She was continued on hydrocortisone. This is chronic and stable. DISPOSITION: The patient is being discharged home. She is independent in her activities of daily living (ADLs). She is at her baseline. Her clinical situation has been resolved. She is to follow with her primary care provider (PCP) within seven days, followup with orthopedic surgery within two weeks, followup with cardiology within one month, followup with relief pilot within two weeks. Her activity is as prior to admission. Her diet is as prior to admission. MEDICATIONS AT THE TIME OF DISCHARGE: - magnesium gluconate 500 mg three times a day - nicotine patch 24 mg one patch daily - acetaminophen 650 mg three times a day as needed for pain - Ventolin HFA two puffs every 4 hours as needed for shortness of breath - oleandrin 870 mg weekly - aspirin 650 mg every 4 hours as needed for pain - atorvastatin 10 mg nightly - buspirone 5 mg twice a day - vitamin D3 2000 units daily - enalapril 20 mg every evening - Breo Ellipta 200/25 one puff nightly - Davis 5/325 one tablet every 6 hours as needed for pain - hydrocortisone 10 mg nightly and 20 mg every morning - ipratropium albuterol nebulizer inhaled three times a day as needed for shortness of breath - magnesium chloride 71.5 mg twice a day - metformin 1 gram twice a day - metoprolol tartrate 25 mg twice a day - ropinirole 1 mg nightly - spironolactone 25 mg daily - valproic acid Depakene 250 mg three times a day One hour spent organizing disposition, answering all questions to the satisfaction of the patient and coordinating care between subspecialists.
== END 2019-03-25 15:58 | disposition home or self-care (01) | DRG 309 ==
LOC: M ED 00:33 → M ED INP 02:54 → M PCU 03:53
PROVIDERS: ADMIT Internal Medicine; ATTEND Internal Medicine
DX: I47.1 Supraventricular tachycardia (principal); E46 Unspecified protein-calorie malnutrition; E87.2 Acidosis; E27.40 Unspecified adrenocortical insufficiency; E83.42 Hypomagnesemia; D50.9 Iron deficiency anemia, unspecified; E83.51 Hypocalcemia; E11.9 Type 2 diabetes mellitus without complications; J44.9 Chronic obstructive pulmonary disease, unspecified; G40.909 Epilepsy, unspecified, not intractable, without status epilepticus; R19.7 Diarrhea, unspecified; Z86.73 Personal history of transient ischemic attack (TIA), and cerebral infarction without residual deficits; E87.6 Hypokalemia; E78.5 Hyperlipidemia, unspecified; Z79.899 Other long term (current) drug therapy; Z79.82 Long term (current) use of aspirin; Z88.8 Allergy status to other drugs, medicaments and biological substances; I10 Essential (primary) hypertension; F17.200 Nicotine dependence, unspecified, uncomplicated; R29.6 Repeated falls

== ENCOUNTER 2019-04-15 23:31 | Inpatient (IN) | payer MEDICARE ==
[~2019-04-15] VITALS: Ht 154.9 cm; Wt 55.9 kg
[~2019-04-15 23:31] MED LIST changes: +APAP325T4 PO; +ASPI-261 PO; +ATOR1TAB21 PO; +ATORVASTATIN 20 MG TAB PO SCH; +BUSP5TA PO; +D 1010004 PO; +HYDR-4513 PO; +MAGN500T6 PO; +NU-M1TAB PO; +PATIENT COMMENT
[2019-04-15] MEDS ORDERED: ADENOSINE 6MG/2ML INJECTION (J0153) IV STA ×3 (23:37)
[2019-04-15] MEDS ORDERED: ADENOSINE 6MG/2ML INJECTION (J0153) As Ordered ONE (23:38)
[2019-04-16] VITALS (15 sets, daily range): BP systolic 68–120; BP diastolic 46–67
[2019-04-16 00:10] LABS: HEMATOCRIT 43.3 % (36.0-47.0); HEMOGLOBIN 13.8 g/dl (12.0-15.5); MEAN CORPUSCULAR HEMOGLOBIN 32.2 pg (27.0-33.0); MEAN CORPUSCULAR HGB CONC 31.9 g/dl (32.0-36.5); MEAN CORPUSCULAR VOLUME 101.2 fl (80.0-96.0); PLATELET COUNT, AUTOMATED 557 10^3/uL (150-450); RED BLOOD COUNT 4.28 10^6/uL (4.00-5.40)
[2019-04-16 00:13] LABS: BLOOD UREA NITROGEN 7 MG/DL (7-18); CARBON DIOXIDE LEVEL 24 MEQ/L (21-32); CHLORIDE LEVEL 104 MEQ/L (98-107); CPK CREATINE PHOSPHOKINASE 28 U/L (26-192); CREATININE FOR GFR 0.69 MG/DL (0.55-1.30); GLOMERULAR FILTRATION RATE > 60.0 (>39); GLUCOSE, FASTING 125 MG/DL (70-100); MAGNESIUM LEVEL 1.5 MG/DL (1.8-2.4); MB/CK RELATIVE INDEX 4.64 (< OR =4); POTASSIUM SERUM 4.6 MEQ/L (3.5-5.1); SODIUM LEVEL 139 MEQ/L (136-145); TROPONIN I < 0.02 NG/ML (< 0.10); WHITE BLOOD COUNT 26.6 10^3/uL (4.0-10.0)
[2019-04-16] MEDS ORDERED: MAG SULF 1GM/100ML (MAG RUN) 1 GM in APPROPRIATE DILUENT 1 EA IV ONE ×2 (00:30→03:15)
[2019-04-16 00:32] LABS: ATYPICAL LYMPH 1 % (0-5); BASOPHILS 1 % (0-4); LYMPHOCYTES 29 % (16-52); MONOCYTES 11 % (0-8); NEUTROPHILS 58 % (35-75)
[2019-04-16 00:39] LABS: ANISOCYTOSIS 1+; PLATELET ESTIMATE NORMAL (NORMAL)
[2019-04-16] MEDS ORDERED: ADENOSINE 6MG/2ML INJECTION (J0153) IV STA ×2 (01:06→06:53)
[2019-04-16 01:48] LABS: ETHYL ALCOHOL (ETHANOL) < 0.003 % (0.000-0.010); FREE T4 1.27 NG/DL (0.76-1.46); VALPROIC ACID (DEPAKOTE) 45.4 UG/ML (50.0-100.0)
[2019-04-16 02:26] LABS: BASO # 0.1 10^3/uL (0.0-0.2); BASO % 0.3 % (0.0-1.0); EOS # 0.1 10^3/uL (0.0-0.50); EOS % 0.6 % (0.0-3.0); HEMATOCRIT 37.9 % (36.0-47.0); HEMOGLOBIN 12.1 g/dl (12.0-15.5); LYMPH # 2.5 10^3/uL (1.5-4.5); LYMPH % 11.9 % (24.0-44.0); MEAN CORPUSCULAR HEMOGLOBIN 31.8 pg (27.0-33.0); MEAN CORPUSCULAR HGB CONC 31.9 g/dl (32.0-36.5); MEAN CORPUSCULAR VOLUME 99.7 fl (80.0-96.0); NEUTROPHILS # 15.7 10^3/uL (1.8-7.7); NEUTROPHILS % 74.6 % (36.0-66.0)
[2019-04-16 02:27] LABS: MONO # 2.5 10^3/uL (0.0-0.8)
[2019-04-16] MEDS ORDERED: ISOVUE-370 76% 100ML VIAL (Q9967) As Ordered ONE (02:32)
--- NOTE | 2019-04-16 04:17 | REPVR ---
EXAM: CT Angiography Chest With Contrast EXAM DATE/TIME: 04/16/2019 2:20 AM CLINICAL HISTORY: 74 years old, female; Chest pain and pleuordynia; Right-sided chest pain; Additional info: Right pleuritic chest pain R/O pe TECHNIQUE: Imaging protocol: Axial computed tomographic angiography images of the chest with intravenous contrast using CT angiography protocol. Coronal and sagittal reformatted images were created and reviewed. 3D rendering: MIP reconstructed images were created and reviewed. Radiation optimization: All CT scans at this facility use at least one of these dose optimization techniques: automated exposure control; mA and/or kV adjustment per patient size (includes targeted exams where dose is matched to clinical indication); or iterative reconstruction. Contrast material: ISO; Contrast volume: 75 ml; Contrast route: AC; COMPARISON: CT ANGIO CHEST 11/22/2018 11:58 PM FINDINGS: Pulmonary arteries: The pulmonary arteries demonstrate mild central enlargement, consistent with mild pulmonary hypertension. The pulmonary trunk measures 3.2 cm in diameter. No filling defects are seen to indicate an acute pulmonary embolism. Aorta: The aorta demonstrates moderate atherosclerotic calcification. There is no thoracic aortic aneurysm or evidence of dissection. Lungs: There are small peripheral areas of consolidation in the right apex and anteriorly in the right middle lobe which were not present on the prior exam. There is adjacent mild ground glass opacity in the right middle lobe. In addition, there are tree in bud reticulonodular densities in several locations in the lungs bilaterally, most prominent in the right upper lobe. Mild centrilobular emphysematous changes are present. Pleural space: There are no pleural effusions present. No pneumothorax is seen. Heart: The heart is normal in size. There is moderate atherosclerotic calcification of the coronary arteries. Upper abdomen: No acute abnormality is identified in the visualized upper abdomen. Lymph nodes: There is a 13 mm pretracheal lymph node and borderline size AP window lymph nodes. Bones/joints: The bones are osteopenic. There is a mildly exaggerated thoracic kyphosis. Loss of height of mid thoracic vertebral bodies are noted, most prominent at T6 and T7, unchanged from the prior exam. There is evidence of multiple rib fractures with callus formation bilaterally which do not appear acute but most were not present on the prior exam of November,. Soft tissues: A superficial oval circumscribed 2.7 x 1.8 cm nodule is noted in the presternal soft tissues, unchanged in size. IMPRESSION: 1. Areas of peripheral consolidation in the right upper lobe and right middle lobe and multiple areas of tree in bud reticulonodular densities in both lungs, not present on the prior exam and most consistent with an acute infectious pneumonia. 2. No evidence of acute pulmonary embolism. Stable mild enlargement of the central pulmonary arteries. 3. Callus noted at multiple bilateral rib fractures, which are not acute but most are new since November,. 4. Stable circumscribed nodule in the presternal subcutaneous tissues, possibly a sebaceous cyst. Electronically signed by: Candy Hall On 04/16/2019 04:16:44 AM
[2019-04-16] MEDS ORDERED: cefTRIAXone SOD 2 GM in D5W MINI-BAG PLUS 50 ML IV ONE (04:45)
[2019-04-16] MEDS ORDERED: AZITHROMYCIN INJ 500 MG, VIAL MATE ADAPTER 1 EACH in D5W 250 ML IV ONE (04:45)
[2019-04-16] MEDS ORDERED: GLUCAGON FOR INJ 1 MG VIAL (J1610) SC PRN (05:00)
[2019-04-16] MEDS ORDERED: DEXTROSE 50% 50 ML SYRINGE IV PRN (05:00)
[2019-04-16] MEDS ORDERED: ACETAMINOPHEN TAB 650MG DOSE (2X325MG) PO PRN (05:00)
[2019-04-16] MEDS ORDERED: GLUCOSE 4 GM CHEW TABLET PO PRN (05:00)
--- NOTE | 2019-04-16 05:02 | HPEPDOC ---
[facility] Medical History & Physical Date of Admission Apr 16, 2019 Date of Service: Apr 16, 2019 History and Physical CHIEF COMPLAINT: tachycardia and SOB HISTORY OF PRESENT ILLNESS: Patient's a 74-year-old female past medical history of SVT, hypertension, COPD, and DM, CAD, seizure disorder brought in by family with complaints of SOB and tachycardia that began today. She was recently admitted at the hospital for SVT with hypomagnesia and had been taking PO supplements. Had been fine until today when she felt palpitations and check her pulse using a home machine and found her HR to be in the 170s. In ER, HR was noted to be >200s and was given several doses of Adenosine with return of sinus rhythm. She complains of pleuritic chest pain as a result of her tripping over something and fell several weeks prior. CTA performed showed no evidence of PE but RML Pneumonia. She appear clinically well and only reports pain from her rib fracture/fall injuries otherwise denies any other complaints. No fever, chills, minimal cough at baseline with COPD. PAST MEDICAL HISTORY: Refer to [facility] PAST SURGICAL HISTORY: Hysterectomy Breast biopsy SOCIAL HISTORY: Smokes about 2ppd but recently cut down to 1/2 ppd. Used to drink heavily but had quit since. Denies drug use. FAMILY HISTORY: Brother had pancreatic cancer Mother with COPD Father with DM ALLERGIES: Please see below. REVIEW OF SYSTEMS: 10 point review of system negative except as stated in [facility] HOME MEDICATIONS: Please see below. PHYSICAL EXAMINATION: General: No acute distress, Alert Eyes: Normal sclera, EOMI, EVONNE HENT: Atraumatic, neck supple, moist mucous membranes Cardiovascular: Normal rate, normal rhythm. No murmurs appreciated. Pulmonary: Clear to auscultation b/l, no wheezing GI: Soft, nontender, nondistended Skin: Warm and dry MSK: tenderness over R. shoulder and R. sided ribs. Neuro: CN grossly intact. No focal deficits. Strengths equal b/l. Psych: oriented x 3 LABORATORY DATA: See below. IMAGING: Chest CT angio- IMPRESSION: 1. Areas of peripheral consolidation in the right upper lobe and right middle lobe and multiple areas of tree in bud reticulonodular densities in both lungs, not present on the prior exam and most consistent with an acute infectious pneumonia. 2. No evidence of acute pulmonary embolism. Stable mild enlargement of the central pulmonary arteries. 3. Callus noted at multiple bilateral rib fractures, which are not acute but most are new since November,. 4. Stable circumscribed nodule in the presternal subcutaneous tissues, possibly a sebaceous cyst. MICROBIOLOGY: Please see below. ASSESSMENT AND PLAN: 1. SVT - Hx of recurrent SVTs. - Likely 2/2 Hypomagnesia and PNA. - resolved with Adenosine treatment. Magnesium repleted. - c/w to monitor and treat as needed. Replace electrolytes as needed. 2. RML PNA - No symptoms of PNA but evidence on imaging along with leukocytosis >20. - Likely contribute to her enter SVT. - Blood cultures drawn. - Obtain resp panel and f/u blood cultures. - Start on Abx. 3. DM - Hold home metformin. - ISS. Accuchecks. 4. CAD - resume home meds. 5. Depression? - Patient very agitated. - Reportedly depress at home. Consider psych evaluation. 6. COPD - Does not appear to be in exacerbation. - Duonebs PRN. - Saturating well. Reported symptom relief with O2 but does not desaturate off of it. DVT ppx: HSQ Code status: Full code Vital Signs Vital Signs Date Time Temp Pulse Resp B/P (MAP) Pulse Ox O2 Delivery O2 Flow Rate FiO2 04/16/19 03:00 95 20 123/58 (79) 98 04/16/19 02:45 2.0 04/16/19 01:43 Room Air 04/15/19 23:31 98.7 Laboratory Data Labs 24H Laboratory Tests 2 04/15/19 23:39: White Blood Count 26.6H, Red Blood Count 4.28, Hemoglobin 13.8, Hematocrit 43.3, Mean Corpuscular Volume 101.2H, Mean Corpuscular Hemoglobin 32.2, Mean Corpuscular Hemoglobin Concent 31.9L, Red Cell Distribution Width 13.8, Platelet Count 557H, Lymphocytes # (Auto) , Monocytes # (Auto) , Nucleated Red Blood Cells % (auto) 0.0, Neutrophils 58, Lymphocytes (Manual) 29, Monocytes (Manual) 11H, Basophils (Manual) 1, Atypical Lymphocytes 1, Platelet Estimate NORMAL, Anisocytosis 1+, Macrocytosis 2+, Anion Gap 11, Glomerular Filtration Rate > 60.0, Blood Urea Nitrogen 7, Creatinine 0.69, Sodium Level 139, Potassium Level 4.6, Chloride Level 104, Carbon Dioxide Level 24, Calcium Level 8.0L, Total C reatine Kinase 28, Magnesium Level 1.5L, Creatine Kinase MB 1.0, Creatine Kinase MB Relative Index 4.64H, Troponin I < 0.02, Thyroid Stimulating Hormone (TSH) 1.600, Free Thyroxine 1.27, Valproic Acid (Depakene) Level 45.4L, Ethyl Alcohol Level < 0.003 04/16/19 02:14: White Blood Count 21.0H, Red Blood Count 3.80L, Hemoglobin 12.1, Hematocrit 37.9, Mean Corpuscular Volume 99.7H, Mean Corpuscular Hemoglobin 31.8, Mean Corpuscular Hemoglobin Concent 31.9L, Red Cell Distribution Width 13.8, Platelet Count , Lymphocytes # (Auto) 2.5, Monocytes # (Auto) 2.5H, Nucleated Red Blood Cells % (auto) 0.0, Magnesium Level 1.9, Immature Granulocyte % (Auto) 0.6, Neutrophils (%) (Auto) 74.6H, Lymphocytes (%) (Auto) 11.9L, Monocytes (%) (Auto) 12.0H, Eosinophils (%) (Auto) 0.6, Basophils (%) (Auto) 0.3, Neutrophils # (Auto) 15.7H, Eosinophils # (Auto) 0.1, Basophils # (Auto) 0.1 04/16/19 04:21: CBC/BMP Laboratory Tests 04/15/19 23:39 Red Blood Count 4.28, Mean Corpuscular Volume 101.2 H, Mean Corpuscular Hemoglobin 32.2, Mean Corpuscular Hemoglobin Concent 31.9 L, Red Cell Distribution Width 13.8, Lymphocytes # (Auto) , Monocytes # (Auto) , Calcium Level 8.0 L, Total Creatine Kinase 28 04/16/19 02:14 Red Blood Count 3.80 L, Mean Corpuscular Volume 99.7 H, Mean Corpuscular Hemoglobin 31.8, Mean Corpuscular Hemoglobin Concent 31.9 L, Red Cell Distribution Width 13.8, Lymphocytes # (Auto) 2.5, Monocytes # (Auto) 2.5 H, Neutrophils (%) (Auto) 74.6 H, Lymphocytes (%) (Auto) 11.9 L, Monocytes (%) (Auto) 12.0 H, Eosinophils (%) (Auto) 0.6, Basophils (%) (Auto) 0.3, Neutrophils # (Auto) 15.7 H, Eosinophils # (Auto) 0.1, Basophils # (Auto) 0.1 Microbiology Microbiology 04/16/19 Blood Culture, Received Pending Home Medications Scheduled Alendronate Sodium (Alendronate Sodium) 70 Mg Tablet, 70 MG PO QWEEK MONDAYS Atorvastatin Calcium (Atorvastatin Calcium) 20 Mg Tablet, 10 MG PO QHS Buspirone HCl (Buspirone HCl) 5 Mg Tablet, 5 MG PO BID Cholecalciferol (Vitamin D3) (Vitamin D3) 1,000 Unit Capsule, 2,000 UNIT PO DAILY Enalapril Maleate (Enalapril Maleate) 20 Mg Tab, 20 MG PO QPM Fluticasone/Vilanterol (Breo Ellipta 200-25 Mcg INH) 1 Inh Inh, 1 PUFF INH QHS Hydrocortisone (Cortef) 10 Mg Tab, 10 MG PO QHS TOTAL 30 MG PER DAY Hydrocortisone (Hydrocortisone) 10 Mg Tablet, 20 MG PO DAILY TOTAL 30 MG PER DAY Metformin HCl (Metformin HCl) 1,000 Mg Tab, 1,000 MG PO BID Metoprolol Tartrate (Metoprolol Tartrate) 25 Mg Tab, 25 MG PO BID Ropinirole HCl (Ropinirole HCl) 1 Mg Tab, 1 MG PO QHS Spironolactone (Spironolactone) 25 Mg Tablet, 25 MG PO DAILY Valproic Acid (Depakene) 250 Mg Cap, 250 MG PO TID Scheduled PRN Acetaminophen (Acetaminophen) 325 Mg Tablet, 650 MG PO TID PRN for PAIN Albuterol Sulfate (Ventolin Hfa) 108 Mcg/Act Aer, 2 PUFF INH Q4H PRN for SHORTNESS OF BREATH Aspirin (Aspirin) 325 Mg Tablet, 650 MG PO Q4H PRN for PAIN Hydrocodone/Acetaminophen ([place] 5-325 Tablet) 1 Each Tablet, 1 TAB PO Q6H PRN for PAIN Ipratropium/Albuterol Sulfate (Iprat-Albut 0.5-3(2.5) mg/3 ml) 1 [place], 1 DOSE INH TID PRN for SHORTNESS OF BREATH Allergies Coded Allergies: propoxyphene (Verified Allergy, Intermediate, hives, 5/2/19) A-FIB/CHADSVASC A-FIB History Current/History of A-Fib/PAF?: No PRABHAKAR MARTÍNEZ MD Apr 16, 2019 05:02
[2019-04-16] MEDS ORDERED: AMLO5TAB6 PO (05:20)
[2019-04-16] MEDS ORDERED: NU-M1TAB PO (05:20)
[2019-04-16] MEDS ORDERED: TRAM50TA2 PO (05:20)
[2019-04-16] MEDS: NORCO, ANEXSIA 5/325MG TABLET (HYDROcodone/ACETAMINOPHEN) PO PRN ×3 (05:55→21:33)
[2019-04-16] MEDS: rOPINIRole 1MG TAB PO SCH ×2 (06:21→21:31)
[2019-04-16] MEDS: HEPARIN SOD (PORCINE) 5000 UNITS/ML VIAL SC SCH ×3 (06:21→21:31)
[2019-04-16] MEDS: HumaLOG INSULIN (NovoLOG) PER UNIT SC SCH ×4 (07:51→21:00)
[2019-04-16 08:16] LABS: BASO # 0.1 10^3/uL (0.0-0.2); BASO % 0.4 % (0.0-1.0); EOS # 0.1 10^3/uL (0.0-0.50); EOS % 0.7 % (0.0-3.0); HEMATOCRIT 36.3 % (36.0-47.0); HEMOGLOBIN 11.8 g/dl (12.0-15.5); LYMPH # 2.5 10^3/uL (1.5-4.5); LYMPH % 12.9 % (24.0-44.0); MEAN CORPUSCULAR HEMOGLOBIN 32.7 pg (27.0-33.0); MEAN CORPUSCULAR HGB CONC 32.5 g/dl (32.0-36.5); MEAN CORPUSCULAR VOLUME 100.6 fl (80.0-96.0); MONO % 12.9 % (0.0-5.0); NEUTROPHILS # 13.7 10^3/uL (1.8-7.7); NEUTROPHILS % 72.5 % (36.0-66.0); RED BLOOD COUNT 3.61 10^6/uL (4.00-5.40); WHITE BLOOD COUNT 18.9 10^3/uL (4.0-10.0)
--- NOTE | 2019-04-16 08:32 | REP ---
Chest one-view HISTORY: Chest pain Comparison: 03/22/2019 The lungs are hyperinflated. The lungs are clear. The heart is normal in size. The pulmonary vasculature is normal in appearance. There is an old fracture of the left humerus. Impression: No acute disease. Electronically Signed by Emile Moraes MD 04/16/2019 08:23 A
[2019-04-16 08:41] LABS: ALT/SGPT 16 U/L (12-78); BILIRUBIN,TOTAL 0.1 MG/DL (0.2-1.0); BLOOD UREA NITROGEN 8 MG/DL (7-18); CALCIUM LEVEL 7.5 MG/DL (8.8-10.2); CARBON DIOXIDE LEVEL 24 MEQ/L (21-32); CHLORIDE LEVEL 105 MEQ/L (98-107); CREATININE FOR GFR 0.66 MG/DL (0.55-1.30); GLOMERULAR FILTRATION RATE > 60.0 (>39); GLUCOSE, FASTING 203 MG/DL (70-100); MAGNESIUM LEVEL 2.2 MG/DL (1.8-2.4); SODIUM LEVEL 137 MEQ/L (136-145); TOTAL PROTEIN 5.3 GM/DL (6.4-8.2)
[2019-04-16 08:47] LABS: MONO # 2.4 10^3/uL (0.0-0.8)
[2019-04-16 08:51] LABS: PLATELET COUNT, AUTOMATED 421 10^3/uL (150-450)
[2019-04-16] MEDS ORDERED: HYDROCORTISONE 10 MG TAB PO SCH ×4 (09:00→21:00)
[2019-04-16] MEDS: SPIRONOLACTONE 25 MG TAB PO SCH (09:00)
[2019-04-16] MEDS: amLODIPine 5 MG TAB PO SCH (09:00)
[2019-04-16] MEDS: METOPROLOL TART 25 MG TABLET PO SCH ×2 (09:00→21:31)
[2019-04-16] MEDS ORDERED: KETOROLAC TROMETHAMINE 10 MG TAB PO ONE (09:15)
[2019-04-16] MEDS: busPIRone 5 MG TAB PO SCH ×2 (09:46→21:32)
[2019-04-16] MEDS: HYDROCORTISONE 100 MG/2 ML VIAL (J1720) IV SCH ×2 (09:46→18:14)
[2019-04-16] MEDS: VITAMIN D 1,000 INTERNATIONAL UNITS TABLET PO SCH (09:46)
[2019-04-16] MEDS: NS 1,000 ML IV SCH ×2 (09:46→21:30)
[2019-04-16] MEDS: VALPROIC ACID 250 MG CAP PO SCH ×3 (09:46→21:32)
[2019-04-16 09:48] LABS: CPK CREATINE PHOSPHOKINASE 22 U/L (26-192); MB/CK RELATIVE INDEX 5.91 (< OR =4); TROPONIN I 0.03 NG/ML (< 0.10)
[2019-04-16] MEDS: traMADol 50 MG TAB PO PRN (12:47)
--- NOTE | 2019-04-16 15:06 | IPNPDOC ---
Text Note Date of Service The patient was seen on 04/16/19. NOTE Ms Solano is seen on bedside exam today, she states she is having some disco mfort in her right chest area when she coughs, largely unproductive, and she wants her pain medications BRENDON. She describes some SOB but it is improved., otherwise denies palpations, n/v or fever. ROS: 12 point ROS reviewed with pt and negative except for positives discussed above. PHYSICAL EXAMINATION: Vitals: See below General: sitting in bed, NAD, speaking in full sentences, AAOx3 HEENT: moist mucus membranes, EOMI, no JVD Cardiovascular: Normal s1 and s2, RRR, no murmurs rubs or gallops appreciated Pulmonary: cta b/l, no wheezing, rales or rhonchi appreciated Abdomen: Soft, nontender, nondistended, nabsx4, no rebound ridgity or guarding, no hepatosplenomegaly or masses appreciated Extremities: no cyanosis, mottling or edema appreciated, some tenderness with palpation of right sided ribs mid axillary on ribs 7,8 , left arm is in purple cast from prior fall prior to admission LABORATORY DATA: See below. ASSESSMENT AND PLAN: 1. Chest discomfort due to coughing -evidence on CT chest -she is being treated for PNA. azithromycin and ceftriaxone, likely the pain post tussive pain and she is irritating her rib injuries on the right -resp panel neg -blood cx x2 pending -wbc improving, afebrile -wbc is also probably elevated due to caronic home steroid use secondary to adre nal insufficiency -C/w IVF -Duoneb therapy 2. History of recurrent SVTs - likely 2/2 hypomagnesemia - etiology unclear; possibly malabsorption or increased losses -Her rate and rhythm have been acceptable -Mag and K acceptable today, continue to monitor and replace as needed -she remains on telemetry - resolved with Adenosine treatment in ED - Will check fractional excretion of magnesium / 24 hour urine magnesium - Will discuss with cardiology 3. NIDM2 - Hold home metformin. - C/w SSI and hypoglycemic protocol 4. CAD - c/w aspirin 5.HTN c/w norvasc, vasotec, enalapril and spirolactone 6. Depression -c/w home buspar 7. hx of COPD - Does not appear to be in exacerbation. - c/w duoneb tx 8. RSS -c/w requip Adrenal insufficiency 9. - Will increase dose of hydrocortisone to 25 IV q8h for next 48 hours and taper down there after DVT ppx: Heparin sq Disposition: She appears to be improving from breathing and infectious standpoint, c/w abx for now, awaiting blood cultures VS,Fishbone, I+O VS, Fishbone, I+O Laboratory Tests 04/15/19 23:39 Red Blood Count 4.28, Mean Corpuscular Volume 101.2 H, Mean Corpuscular Hemoglobin 32.2, Mean Corpuscular Hemoglobin Concent 31.9 L, Red Cell Distribution Width 13.8, Lymphocytes # (Auto) , Monocytes # (Auto) , Calcium Level 8.0 L, Total Creatine Kinase 28 04/16/19 02:14 Red Blood Count 3.80 L, Mean Corpuscular Volume 99.7 H, Mean Corpuscular Hemoglobin 31.8, Mean Corpuscular Hemoglobin Concent 31.9 L, Red Cell Distribution Width 13.8, Lymphocytes # (Auto) 2.5, Monocytes # (Auto) 2.5 H, Neutrophils (%) (Auto) 74.6 H, Lymphocytes (%) (Auto) 11.9 L, Monocytes (%) (Auto) 12.0 H, Eosinophils (%) (Auto) 0.6, Basophils (%) (Auto) 0.3, Neutrophils # (Auto) 15.7 H, Eosinophils # (Auto) 0.1, Basophils # (Auto) 0.1 04/16/19 07:50 Red Blood Count 3.61 L, Mean Corpuscular Volume 100.6 H, Mean Corpuscular Hemoglobin 32.7, Mean Corpuscular Hemoglobin Concent 32.5, Red Cell Distribution Width 13.8, Lymphocytes # (Auto) 2.5, Monocytes # (Auto) 2.4 H, Calcium Level 7.5 L, Total Creatine Kinase 22 L, Neutrophils (%) (Auto) 72.5 H, Lymphocytes (%) (Auto) 12.9 L, Monocytes (%) (Auto) 12.9 H, Eosinophils (%) (Auto) 0.7, Basophils (%) (Auto) 0.4, Neutrophils # (Auto) 13.7 H, Eosinophils # (Auto) 0.1, Basophils # (Auto) 0.1, Aspartate Amino Transf (AST/SGOT) 6 L, Alanine Aminotransferase (ALT/SGPT) 16, Alkaline Phosphatase 71, Total Bilirubin 0.1 L, Total Protein 5.3 L, Albumin 2.0 L Vital Signs Date Time Temp Pulse Resp B/P (MAP) Pulse Ox O2 Delivery O2 Flow Rate FiO2 04/16/19 13:17 24 04/16/19 10:00 97 98/54 (69) 97 04/16/19 08:46 2.0 04/16/19 08:05 98.0 04/16/19 07:54 Nasal Cannula GME ATTESTATION GME ATTESTATION My faculty preceptor for this patient encounter was physically present during the encounter and was fully available. All aspects of the patient interview, examination, medical decision making process, and medical care plan development were reviewed and approved by the faculty preceptor. The faculty preceptor is aware and concurs with the plan as stated in the body of this note and will attest to such by his/her cosignature. ATTENDING NOTE I, Nicola Langford, have both independently examined this patient as well as reviewed the documentation. I have discussed in detail with the resident the findings and plan of treatment as documented by the resident. I agree with their findings and treatment plan. I will continue to follow the patient and offer further guidance to the patients care as necessary during this hospital stay. SKYE MAYBERRY DO Apr 16, 2019 15:06 NICOLA LANGFORD MD Apr 16, 2019 16:44
--- NOTE | 2019-04-16 17:03 | ECGEPIP ---
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 Somewhat low voltages with slow precordial R-wave progression; body habitus versus pulmonary disease Nonspecific ST/T-wave abnormalities Rhythm change with accentuated repolarization abnormalities from 04/15/19 Clinical correlation advised Electronically Signed on 04-16-2019 17:03:33 EDT by Mor Van
--- NOTE | 2019-04-16 17:05 | ECGEPIP ---
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 Electronically Signed on 04-16-2019 17:05:09 EDT by Mor Van
[2019-04-16] MEDS: IPRATROPIUM 0.5MG/ALBUTEROL 2.5MG INH SOL UD 3ML (DUONEB)(J7620) NEB PRN ×2 (18:10→22:34)
[2019-04-16] MEDS: ENALAPRIL MALEATE 10 MG TAB PO SCH (18:13)
[2019-04-16] MEDS: NICOTINE 21MG/24HR 1 EA TRANSDERMAL TD SCH (18:20)
[2019-04-16 19:40] LABS: MAGNESIUM URINE RANDOM 6.9 MG/DL
[2019-04-16] MEDS: MAGNESIUM CHLORIDE 64 MG TABCR (SLO MAG) PO SCH (21:31)
[2019-04-17] VITALS (7 sets, daily range): BP systolic 108–124; BP diastolic 56–80
[2019-04-17] MEDS: HYDROCORTISONE 100 MG/2 ML VIAL (J1720) IV SCH ×2 (02:53→09:41)
[2019-04-17] MEDS: NORCO, ANEXSIA 5/325MG TABLET (HYDROcodone/ACETAMINOPHEN) PO PRN ×2 (04:08→21:20)
[2019-04-17 04:25] LABS: BASO % 0.2 % (0.0-1.0); EOS % 0.1 % (0.0-3.0); HEMATOCRIT 31.2 % (36.0-47.0); HEMOGLOBIN 10.1 g/dl (12.0-15.5); LYMPH # 1.6 10^3/uL (1.5-4.5); MEAN CORPUSCULAR HEMOGLOBIN 32.3 pg (27.0-33.0); MEAN CORPUSCULAR HGB CONC 32.4 g/dl (32.0-36.5); MEAN CORPUSCULAR VOLUME 99.7 fl (80.0-96.0); MONO % 7.2 % (0.0-5.0); NEUTROPHILS # 10.5 10^3/uL (1.8-7.7); PLATELET COUNT, AUTOMATED 418 10^3/uL (150-450); RED BLOOD COUNT 3.13 10^6/uL (4.00-5.40); WHITE BLOOD COUNT 13.1 10^3/uL (4.0-10.0)
[2019-04-17 04:41] LABS: BLOOD UREA NITROGEN 10 MG/DL (7-18); CARBON DIOXIDE LEVEL 24 MEQ/L (21-32); CHLORIDE LEVEL 107 MEQ/L (98-107); CREATININE FOR GFR 0.52 MG/DL (0.55-1.30); GLOMERULAR FILTRATION RATE > 60.0 (>39); GLUCOSE, FASTING 222 MG/DL (70-100); MAGNESIUM LEVEL 1.9 MG/DL (1.8-2.4); POTASSIUM SERUM 4.5 MEQ/L (3.5-5.1); SODIUM LEVEL 137 MEQ/L (136-145)
[2019-04-17] MEDS: HEPARIN SOD (PORCINE) 5000 UNITS/ML VIAL SC SCH ×3 (06:22→21:21)
[2019-04-17] MEDS ORDERED: AZITHROMYCIN INJ 500 MG, VIAL MATE ADAPTER 1 EACH in D5W 250 ML IV SCH (08:00)
[2019-04-17] MEDS: HumaLOG INSULIN (NovoLOG) PER UNIT SC SCH ×4 (08:15→21:00)
[2019-04-17] MEDS ORDERED: cefTRIAXone SOD 2 GM in D5W MINI-BAG PLUS 50 ML IV SCH (09:00)
[2019-04-17] MEDS ORDERED: AZITHROMYCIN INJ 500 MG, VIAL MATE ADAPTER 1 EACH in D5W 250 ML IV ONE (09:00)
[2019-04-17] MEDS ORDERED: NICOTINE 21MG/24HR 1 EA TRANSDERMAL TD SCH (09:00)
[2019-04-17] MEDS: IPRATROPIUM 0.5MG/ALBUTEROL 2.5MG INH SOL UD 3ML (DUONEB)(J7620) NEB PRN ×2 (09:29→20:00)
[2019-04-17] MEDS: NICOTINE 21MG/24HR 1 EA TRANSDERMAL TD SCH (09:37)
[2019-04-17] MEDS: SPIRONOLACTONE 25 MG TAB PO SCH (09:38)
[2019-04-17] MEDS: busPIRone 5 MG TAB PO SCH ×2 (09:39→21:19)
[2019-04-17] MEDS: VITAMIN D 1,000 INTERNATIONAL UNITS TABLET PO SCH (09:39)
[2019-04-17] MEDS: VALPROIC ACID 250 MG CAP PO SCH ×3 (09:40→21:20)
[2019-04-17] MEDS: amLODIPine 5 MG TAB PO SCH (09:40)
[2019-04-17] MEDS: MAGNESIUM CHLORIDE 64 MG TABCR (SLO MAG) PO SCH ×2 (09:40→21:22)
[2019-04-17] MEDS: METOPROLOL TART 25 MG TABLET PO SCH ×2 (09:40→21:22)
--- NOTE | 2019-04-17 10:52 | IPNPDOC ---
Date Seen The patient was seen on 04/17/19. Progress Note SUBJECTIVE: Ms Solano is seen on bedside exam today, she states she is having some continued discomfort in right chest area when she coughs and takes a deep breath in. She reports some difficulty breathing and increasing urge to cough and requested a breathing treatment this morning. She states that her overall shortness of breath is improving but feels as if she needs to cough up phlegm but she cannot. She denies palpitations, chest pain other than rib/chest wall discomfort, nausea, vomiting, fever, or chills. She wants her nicotine patch BRENDON. ROS: 12 point ROS reviewed with pt and negative except for positives discussed above. OBJECTIVE PHYSICAL EXAMINATION: VITAL SIGNS: Please see below. GENERAL: Patient is sitting in bed, awake, alert, and oriented, speaking in full sentences, in no acute distress. HEENT: moist mucus membranes, EOMI, no JVD CARDIOVASCULAR: Normal S1 and S2, RRR, no murmurs rubs or gallops appreciated RESPIRATORY: Rhonchorous breath sounds appreciated throughout, no wheezing or rales. ABDOMINAL: Soft, nontender, nondistended, nabsx4, no rebound ridgity or guarding, no hepatosplenomegaly or masses appreciated EXTREMITIES: no cyanosis, mottling or edema appreciated, some tenderness with palpation of right sided ribs mid axillary on ribs 7,8, some discomfort of right shoulder upon movement, left arm is in purple cast from prior fall prior to admission. NEUROLOGICAL: Spontaneously moves all 4 extremities, no focal deficits PSYCHOLOGICAL: Appropriate affect LABORATORY DATA, IMAGING STUDIES, MICROBIOLOGY: Please see below. IMAGING STUDIES: 1. CXR -The lungs are hyperinflated. The lungs are clear. The heart is normal in size. -The pulmonary vasculature is normal in appearance. There is an old fracture of the left humerus. Impression: No acute disease. 2. CT Angiography Chest with Contrast IMPRESSION: 1. Areas of peripheral consolidation in the right upper lobe and right middle lobe and multiple areas of tree in bud reticulonodular densities in both lungs, not present on the prior exam and most consistent with an acute infectious pneumonia. 2. No evidence of acute pulmonary embolism. Stable mild enlargement of the central pulmonary arteries. 3. Callus noted at multiple bilateral rib fractures, which are not acute but most are new since November,. 4. Stable circumscribed nodule in the presternal subcutaneous tissues, possibly a sebaceous cyst. DVT ppx: Heparin sq ASSESSMENT AND PLAN: This is a 74-year-old female with chest discomfort on coughing and deep inspiration, PNA, and history of recurrent SVTs. PROBLEMS: 1. Pleuritic chest discomfort / Cough / Mild SOB - likely 2/2 community acquired pneumonia (coverage for atypical pneumonia) - Evidenced on CT chest - She is being treated for PNA with Azithromycin and Ceftriaxone, likely the pain is post-tussive pain and she is irritating her right injuries on the right - Respiratory Panel negative - Blood cx x2 neg after 24 hours - WBC improving, afebrile - WBC was also probably elevated due to chronic home steroid use secondary to adrenal insufficiency - C/W IVF for now - Duoneb therapy - Will transition to PO Azithromycin and Cefdinir 2. History of recurrent SVTs - likely 2/2 hypomagnesemia - etiology unclear; possibly malabsorption or increased losses -Her rate and rhythm have been acceptable -Mag and K acceptable today, continue to monitor and replace as needed -she remains on telemetry - resolved with Adenosine treatment in ED - Fractional excretion of magnesium / 24 hour urine magnesium pending - Will discuss with cardiology -c/w metoprolol 25 mg BID for now, prio hypotension precluded increasing dose - C/w PO supplementation of Magnesium 3. NIDM2 - Hold home metformin. - C/w ISS and hypoglycemic protocol 4. CAD - c/w aspirin 5.HTN c/w norvasc, vasotec, enalapril and spirolactone 6. Depression -c/w home buspar - Reportedly depressed at home 7. hx of COPD - Does not appear to be in exacerbation. - c/w duoneb tx 8. RSS -c/w requip 9. Adrenal insufficiency - Plan to taper to PO hydrocortisone to double home dose, will taper there after DISPOSITION: Patient appears to be improving from breathing and infectious standpoint. Plan is to taper to PO hydrocortisone double home dose, after 2-3 days will consider tapering to home dosage, c/w PO Magnesium supplementation, transition to PO Azithromycin and Cefdinir. Will need Home Safety Evaluation from Physical Therapy. Potential discharge tomorrow. VS, I&O, 24H, Fishbone Vital Signs/I&O Vital Signs Date Time Temp Pulse Resp B/P (MAP) Pulse Ox O2 Delivery O2 Flow Rate FiO2 04/17/19 09:40 88 115/60 04/17/19 04:40 18 04/17/19 04:00 98.1 96 04/16/19 08:46 2.0 04/16/19 07:54 Nasal Cannula I&O- Last 24 Hours up to 6 AM 04/17/19 06:00 Intake Total 3500 ml Output Total 600 ml Balance 2900 ml Laboratory Data 24H LABS Laboratory Tests 2 04/16/19 12:32: Bedside Glucose (Misc Panel) 119H 04/16/19 16:48: Bedside Glucose (Misc Panel) 282H 04/16/19 19:18: Urine Random Creatinine 154.0, Urine Random Magnesium 6.9 04/16/19 20:46: Bedside Glucose (Misc Panel) 162H 04/17/19 04:05: Immature Granulocyte % (Auto) 0.5, White Blood Count 13.1H, Red Blood Count 3.13L, Hemoglobin 10.1L, Hematocrit 31.2L, Mean Corpuscular Volume 99.7H, Mean Corpuscular Hemoglobin 32.3, Mean Corpuscular Hemoglobin Concent 32.4, Red Cell Distribution Width 13.7, Platelet Count 418, Neutrophils (%) (Auto) 80.0H, Lymphocytes (%) (Auto) 12.0L, Monocytes (%) (Auto) 7.2H, Eosinophils (%) (Auto) 0.1, Basophils (%) (Auto) 0.2, Neutrophils # (Auto) 10.5H, Lymphocytes # (Auto) 1.6, Monocytes # (Auto) 1.0H, Eosinophils # (Auto) 0.0, Basophils # (Auto) 0.0, Nucleated Red Blood Cells % (auto) 0.0, Anion Gap 6L, Glomerular Filtration Rate > 60.0, Blood Urea Nitrogen 10, Creatinine 0.52L, Sodium Level 137, Potassium Level 4.5, Chloride Level 107, Carbon Dioxide Level 24, Calcium Level 7.0L, Magnesium Level 1.9 04/17/19 07:57: Bedside Glucose (Misc Panel) 200H CBC/BMP Laboratory Tests 04/17/19 04:05 Red Blood Count 3.13 L, Mean Corpuscular Volume 99.7 H, Mean Corpuscular Hemoglobin 32.3, Mean Corpuscular Hemoglobin Concent 32.4, Red Cell Distribution Width 13.7, Neutrophils (%) (Auto) 80.0 H, Lymphocytes (%) (Auto) 12.0 L, Monocytes (%) (Auto) 7.2 H, Eosinophils (%) (Auto) 0.1, Basophils (%) (Auto) 0.2, Neutrophils # (Auto) 10.5 H, Lymphocytes # (Auto) 1.6, Monocytes # (Auto) 1.0 H, Eosinophils # (Auto) 0.0, Basophils # (Auto) 0.0, Calcium Level 7.0 L Microbiology Microbiology 04/16/19 Blood Culture - Preliminary, Resulted No growth after 24 hours . All specim... 04/16/19 Blood Culture - Preliminary, Resulted No growth after 24 hours . All specim... 04/16/19 Respiratory Virus Panel (PCR) (KENYA) - Final, Complete GME ATTESTATION GME ATTESTATION My faculty preceptor for this patient encounter was physically present during the encounter and was fully available. All aspects of the patient interview, examination, medical decision making process, and medical care plan development were reviewed and approved by the faculty preceptor. The faculty preceptor is aware and concurs with the plan as stated in the body of this note and will attest to such by his/her cosignature. ATTENDING NOTE I, Nicola Lafleur, have both independently examined this patient as well as r eviewed the documentation. I have discussed in detail with the resident the findings and plan of treatment as documented by the resident. I agree with their findings and treatment plan. I will continue to follow the patient and offer further guidance to the patients care as necessary during this hospital stay. URIEL MEDELLIN S-3 Apr 17, 2019 10:52 SKYE MAYBERRY DO Apr 17, 2019 12:19 NICOLA LAFLEUR MD Apr 17, 2019 13:58
[2019-04-17] MEDS: traMADol 50 MG TAB PO PRN (14:03)
[2019-04-17] MEDS ORDERED: SLF 3 ML SYR IV PRN (15:30)
[2019-04-17] MEDS: ENALAPRIL MALEATE 10 MG TAB PO SCH (17:37)
[2019-04-17] MEDS ORDERED: HYDROCORTISONE 10 MG TAB PO SCH (21:00)
[2019-04-17] MEDS: CEFDINIR 300 MG CAP (OMNICEF) PO SCH (21:19)
[2019-04-17] MEDS: SLF 3 ML SYR IV SCH (21:21)
[2019-04-17] MEDS: rOPINIRole 1MG TAB PO SCH (21:21)
[2019-04-18] VITALS: BP 124/72
[2019-04-18] MEDS: IPRATROPIUM 0.5MG/ALBUTEROL 2.5MG INH SOL UD 3ML (DUONEB)(J7620) NEB PRN ×2 (01:58→11:16)
[2019-04-18 04:00] VITALS: BP 116/70
[2019-04-18 05:08] LABS: BASO % 0.3 % (0.0-1.0); EOS % 0.2 % (0.0-3.0); HEMATOCRIT 33.5 % (36.0-47.0); HEMOGLOBIN 10.7 g/dl (12.0-15.5); LYMPH # 1.7 10^3/uL (1.5-4.5); LYMPH % 15.3 % (24.0-44.0); MEAN CORPUSCULAR HEMOGLOBIN 32.1 pg (27.0-33.0); MEAN CORPUSCULAR HGB CONC 31.9 g/dl (32.0-36.5); MEAN CORPUSCULAR VOLUME 100.6 fl (80.0-96.0); NEUTROPHILS % 74.6 % (36.0-66.0); PLATELET COUNT, AUTOMATED 450 10^3/uL (150-450); RED BLOOD COUNT 3.33 10^6/uL (4.00-5.40); WHITE BLOOD COUNT 10.8 10^3/uL (4.0-10.0)
[2019-04-18 05:28] LABS: BLOOD UREA NITROGEN 7 MG/DL (7-18); CALCIUM LEVEL 7.7 MG/DL (8.8-10.2); CARBON DIOXIDE LEVEL 24 MEQ/L (21-32); CHLORIDE LEVEL 107 MEQ/L (98-107); CREATININE FOR GFR 0.46 MG/DL (0.55-1.30); GLOMERULAR FILTRATION RATE > 60.0 (>39); GLUCOSE, FASTING 193 MG/DL (70-100); MAGNESIUM LEVEL 1.8 MG/DL (1.8-2.4); POTASSIUM SERUM 4.3 MEQ/L (3.5-5.1); SODIUM LEVEL 137 MEQ/L (136-145)
[2019-04-18] MEDS: HEPARIN SOD (PORCINE) 5000 UNITS/ML VIAL SC SCH (06:12)
[2019-04-18] MEDS: SLF 3 ML SYR IV SCH (06:12)
[2019-04-18 07:16] VITALS: BP 116/59
[2019-04-18] MEDS: HumaLOG INSULIN (NovoLOG) PER UNIT SC SCH (07:41)
--- NOTE | 2019-04-18 07:53 | ECGEPIP ---
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
--- NOTE | 2019-04-18 07:54 | ECGEPIP ---
[facility] - ED Test Date: 2019-04-15 Pat Name: MARCELINO FOWLER Department: Room: 01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
[2019-04-18 08:12] VITALS: BP 116/58
[2019-04-18] MEDS: CEFDINIR 300 MG CAP (OMNICEF) PO SCH (08:13)
[2019-04-18] MEDS: NICOTINE 21MG/24HR 1 EA TRANSDERMAL TD SCH (08:13)
[2019-04-18] MEDS: VALPROIC ACID 250 MG CAP PO SCH (08:13)
[2019-04-18] MEDS: SPIRONOLACTONE 25 MG TAB PO SCH (08:13)
[2019-04-18] MEDS: busPIRone 5 MG TAB PO SCH (08:13)
[2019-04-18 08:14] VITALS: BP 116/58
[2019-04-18] MEDS: METOPROLOL TART 25 MG TABLET PO SCH (08:14)
[2019-04-18] MEDS: amLODIPine 5 MG TAB PO SCH (08:14)
[2019-04-18] MEDS: VITAMIN D 1,000 INTERNATIONAL UNITS TABLET PO SCH (08:14)
[2019-04-18] MEDS ORDERED: NU-M1TAB PO (08:34)
[2019-04-18] MEDS ORDERED: CORT10TA PO (08:34)
[2019-04-18] MEDS ORDERED: CEFD300CAP PO (08:34)
[2019-04-18] MEDS ORDERED: AZIT-12 PO (08:34)
[2019-04-18] MEDS ORDERED: HYDR-4513 PO (08:34)
[2019-04-18] MEDS ORDERED: HYDROCORTISONE 10 MG TAB PO SCH (09:00)
[2019-04-18] MEDS ORDERED: AZITHROMYCIN 250 MG TAB PO SCH (09:00)
[2019-04-18] MEDS ORDERED: MAGNESIUM CHLORIDE 64 MG TABCR (SLO MAG) PO SCH (09:00)
[2019-04-18] MEDS ORDERED: TRAM50TA2 PO (09:31)
--- NOTE | 2019-04-18 16:15 | DS.PDOC ---
Discharge Summary General Date of Admission Apr 16, 2019 at 07:29 Date of Discharge 04.18.19 Discharge Summary PROCEDURES PERFORMED DURING STAY: None ADMITTING DIAGNOSES / DISCHARGE DIAGNOSES: 1. SVT - likely 2/2 hypomagnesemia - possibly worsened with pneumonia 2. RML PNA - likely 2/2 gram negative / atypical pneumonia - coverage for both upon discharge 3. DM2 with hypoglycemia 4. CAD 5. Mood disorder 6. COPD with chronic hypoxia COMPLICATIONS/CHIEF COMPLAINT: Rml Pneumonia, Svt. HOSPITAL COURSE: During the course of her hospital stay she was treated with IV abx and then transitioned to PO abx. She worked with and was cleared by PT to go home. Her resp panel was negative as were her blood cx x2 after 48 hours. She did experience SVT in the ED and converted after Adenosine was given, this was thought to be secondary to her infection but she is encouraged to follow up with cardiology 5-7 days after d.c, her heart rate was controlled during her stay, she was managed with Lopressor for the heart rate, and also given steroids inhouse for her adrenal insufficiency. She is being d/c on Azithromycin and Cefdinir. DISCHARGE MEDICATIONS: Please see below. ALLERGIES: Please see below. PHYSICAL EXAMINATION ON DISCHARGE: PHYSICAL EXAMINATION ON DISCHARGE: VITAL SIGNS: Please see below. GENERAL:Pleasant, 74 yo female, NAD, speaking in full sentences HEENT: EOMI, moist mucus membranes, no JVD CARDIOVASCULAR EXAMINATION: normal s1 and s2., no murmurs, rubs or gallops RESPIRATORY EXAMINATION: cta b/l, no wheezing, rales appreciated but diffuse improved rhonchi ABDOMINAL EXAMINATION: nabsx4, no hepatosplenomegaly, no masses appreciated, nontender, no distension, no rebound ridgity or guarding EXTREMITIES: no swelling, cyanosis or edema, left arm is casted NEUROLOGICAL EXAMINATION: no focal deficits appreciated LABORATORY DATA: Please see below. IMAGING: CTA chest 04.16.19 Impression: No acute disease. CXR .04.29 IMPRESSION: 1. Areas of peripheral consolidation in the right upper lobe and right middle lobe and multiple areas of tree in bud reticulonodular densities in both lungs, not present on the prior exam and most consistent with an acute infectious pneumonia. 2. No evidence of acute pulmonary embolism. Stable mild enlargement of the central pulmonary arteries. 3. Callus noted at multiple bilateral rib fractures, which are not acute but most are new since November,. 4. Stable circumscribed nodule in the presternal subcutaneous tissues, possibly a sebaceous cyst. PROGNOSIS: stable ACTIVITY: As tolerated DIET: as tolerated DISCHARGE PLAN: - Home, follow up with PCP & [facility] within 5-7 days of dc - Remain compliant with treatment plan and medications - Return to the ER if you experience any problems. DISPOSITION: 06 Home Health Service. DISCHARGE INSTRUCTIONS & ITEMS TO FOLLOWUP ON OUTPATIENT: 1. Home, follow up with PCP within 5-7 days of dc DISCHARGE CONDITION: Stable TIME SPENT ON DISCHARGE: 30 minutes. Vital Signs/I&Os Vital Signs Date Time Temp Pulse Resp B/P (MAP) Pulse Ox O2 Delivery O2 Flow Rate FiO2 04/18/19 08:14 83 116/58 04/18/19 08:12 98.1 20 96 04/16/19 08:46 2.0 04/16/19 07:54 Nasal Cannula I&O- Last 24 Hours up to 6 AM 04/18/19 05:59 Intake Total 1970 ml Output Total 1675 ml Balance 295 ml Laboratory Data Labs 24H Laboratory Tests 2 04/17/19 16:58: Bedside Glucose (Misc Panel) 165H 04/17/19 21:17: Bedside Glucose (Misc Panel) 156H 04/18/19 04:38: Immature Granulocyte % (Auto) 0.6, White Blood Count 10.8H, Red Blood Count 3.33L, Hemoglobin 10.7L, Hematocrit 33.5L, Mean Corpuscular Volume 100.6H, Mean Corpuscular Hemoglobin 32.1, Mean Corpuscular Hemoglobin Concent 31.9L, Red Cell Distribution Width 13.5, Platelet Count 450, Neutrophils (%) (Auto) 74.6H, Lymphocytes (%) (Auto) 15.3L, Monocytes (%) (Auto) 9.0H, Eosinophils (%) (Auto) 0.2, Basophils (%) (Auto) 0.3, Neutrophils # (Auto) 8.0H, Lymphocytes # (Auto) 1.7, Monocytes # (Auto) 1.0H, Eosinophils # (Auto) 0.0, Basophils # (Auto) 0.0, Nucleated Red Blood Cells % (auto) 0.0, Anion Gap 6L, Glomerular Filtration Rate > 60.0, Blood Urea Nitrogen 7, Creatinine 0.46L, Sodium Level 137, Potassium Level 4.3, Chloride Level 107, Carbon Dioxide Level 24, Calcium Level 7.7L, Magnesium Level 1.8 CBC/BMP Laboratory Tests 04/18/19 04:38 Red Blood Count 3.33 L, Mean Corpuscular Volume 100.6 H, Mean Corpuscular Hemoglobin 32.1, Mean Corpuscular Hemoglobin Concent 31.9 L, Red Cell Distribution Width 13.5, Neutrophils (%) (Auto) 74.6 H, Lymphocytes (%) (Auto) 15.3 L, Monocytes (%) (Auto) 9.0 H, Eosinophils (%) (Auto) 0.2, Basophils (%) (Auto) 0.3, Neutrophils # (Auto) 8.0 H, Lymphocytes # (Auto) 1.7, Monocytes # (Auto) 1.0 H, Eosinophils # (Auto) 0.0, Basophils # (Auto) 0.0, Calcium Level 7.7 L FSBS Laboratory Tests Test 04/17/19 16:58 04/17/19 21:17 Range/Units Bedside Glucose (Misc Panel) 165 156 83-110 MG/DL Microbiology Microbiology 04/16/19 Blood Culture - Preliminary, Resulted No Growth after 48 hours. All Specime... 04/16/19 Blood Culture - Preliminary, Resulted No Growth after 48 hours. All Specime... 04/16/19 Respiratory Virus Panel (PCR) (KENYA) - Final, Complete Discharge Medications Scheduled Alendronate Sodium (Alendronate Sodium) 70 Mg Tablet, 70 MG PO QWEEK, (Reported) MONDAYS Amlodipine Besylate (Amlodipine Besylate) 5 Mg Tablet, 5 MG PO DAILY, (Reported) Azithromycin (Azithromycin) 250 Mg Tablet, 250 MG PO DAILY Buspirone HCl (Buspirone HCl) 5 Mg Tablet, 5 MG PO BID, (Reported) Cefdinir (Cefdinir) 300 Mg Capsule, 300 MG PO BID Cholecalciferol (Vitamin D3) (Vitamin D3) 1,000 Unit Capsule, 2,000 UNIT PO DAILY, (Reported) Enalapril Maleate (Enalapril Maleate) 20 Mg Tab, 20 MG PO QPM, (Reported) DINNERTIME Fluticasone/Vilanterol (Breo Ellipta 200-25 Mcg INH) 1 Inh Inh, 1 PUFF INH QHS, (Reported) Hydrocortisone (Cortef) 10 Mg Tab, 10 MG PO QHS take 2 pills QHS x 3 days, then return to 1 pill there after Hydrocortisone (Hydrocortisone) 10 Mg Tablet, 20 MG PO DAILY take 2 pills x 3 days, then return to 1 pill daily there after Magnesium Chloride (Nu-Mag) 71.5 Mg Tablet.dr, 1 TAB PO ASDIRECTED take 1 tab in morning, take 2 tab in evening Metformin HCl (Metformin HCl) 1,000 Mg Tab, 1,000 MG PO BID, (Reported) Metoprolol Tartrate (Metoprolol Tartrate) 25 Mg Tab, 25 MG PO BID, (Reported) Ropinirole HCl (Ropinirole HCl) 1 Mg Tab, 1 MG PO QHS, (Reported) CAN TAKE A SECOND TABLET IF NEEDED Spironolactone (Spironolactone) 25 Mg Tablet, 25 MG PO DAILY, (Reported) Valproic Acid (Depakene) 250 Mg Cap, 250 MG PO TID, (Reported) MORNING, DINNERTIME, QHS Scheduled PRN Acetaminophen (Acetaminophen) 325 Mg Tablet, 650 MG PO TID PRN for PAIN, (Reported) Albuterol Sulfate (Ventolin Hfa) 108 Mcg/Act Aer, 2 PUFF INH Q4H PRN for SHORTNESS OF BREATH, (Reported) Hydrocodone/Acetaminophen ([place] 5-325 Tablet) 1 Each Tablet, 1 TAB PO Q6H PRN for PAIN, (Reported) Ipratropium/Albuterol Sulfate (Iprat-Albut 0.5-3(2.5) mg/3 ml) 1 [place], 3 ML INH Q4H PRN for SHORTNESS OF BREATH, (Reported) Tramadol HCl (Tramadol HCl) 50 Mg Tablet, 50 MG PO Q12H PRN for PAIN, (Reported) Allergies Coded Allergies: propoxyphene (Verified Allergy, Intermediate, hives, 03/12/19) GME ATTESTATION GME ATTESTATION My faculty preceptor for this patient encounter was physically present during the encounter and was fully available. All aspects of the patient interview, examination, medical decision making process, and medical care plan development were reviewed and approved by the faculty preceptor. The faculty preceptor is aware and concurs with the plan as stated in the body of this note and will attest to such by his/her cosignature. ATTENDING NOTE I, Nicola Langford, have both independently examined this patient as well as reviewed the documentation. I have discussed in detail with the resident the findings and plan of treatment as documented by the resident. I agree with their findings and treatment plan. I will continue to follow the patient and offer further guidance to the patients care as necessary during this hospital stay. Time spent on discharge 35 minutes SKYE MAYBERRY DO Apr 18, 2019 16:15 NICOLA LANGFORD MD Apr 18, 2019 18:32
== END 2019-04-18 12:04 | disposition home health service (06) | DRG 308 ==
LOC: M ED 23:31 → M ED INP 23:32 → OBSVTOIN 04-16 07:29 → M ICU 04-16 08:12
PROVIDERS: ADMIT Student in an Organized Health Care Education/Training Program; ATTEND Internal Medicine
DX: I47.1 Supraventricular tachycardia (principal); J18.9 Pneumonia, unspecified organism; E27.40 Unspecified adrenocortical insufficiency; E83.42 Hypomagnesemia; I25.10 Atherosclerotic heart disease of native coronary artery without angina pectoris; J44.9 Chronic obstructive pulmonary disease, unspecified; E11.649 Type 2 diabetes mellitus with hypoglycemia without coma; Z79.899 Other long term (current) drug therapy; Z88.8 Allergy status to other drugs, medicaments and biological substances; I10 Essential (primary) hypertension; G40.909 Epilepsy, unspecified, not intractable, without status epilepticus; F17.200 Nicotine dependence, unspecified, uncomplicated

== ENCOUNTER → 2019-04-18 | Outpatient (REF) | payer MEDICARE ==
[~2019-04-18] MED LIST changes: -ATORVASTATIN 20 MG TAB PO SCH; +AZIT-12 PO; +CEFD300CAP PO; +TRAM50TA2 PO
[2019-04-20 14:09] LABS: MAGNESIUM, URINE 4.4 MG/DL; URINE MAGNESIUM 24HR 48.4 MG/24HR (24-255)
== END ==
LOC: M LAB REF 04-17 21:00
PROVIDERS: ATTEND Hospitalist
DX: E83.42 Hypomagnesemia (principal)

== ENCOUNTER 2019-05-11 14:49 | Outpatient (CLI) | payer MEDICARE ==
[~2019-05-11] VITALS: Ht 154.9 cm; Wt 56.6 kg
[2019-05-11] MEDS: MAG SULF 1GM/100ML (MAG RUN) X 2 DOSES (2GM TOTAL) IV SCH ×4 (15:16→15:17)
[2019-05-11 15:31] VITALS: BP 136/60
[2019-05-11 17:20] VITALS: BP 158/68
[2019-05-17] MEDS ORDERED: ASPI1TAB20 PO (15:55)
== END 2019-05-11 17:30 | disposition home or self-care (01) ==
LOC: M INFU 14:49
PROVIDERS: ATTEND Internal Medicine Nephrology
DX: E83.42 Hypomagnesemia (principal)
CPT/HCPCS: 96365; 96366; J3475

== ENCOUNTER 2019-05-17 15:02 | Emergency (ER) | payer MEDICARE ==
[~2019-05-17] VITALS: Ht 154.9 cm; Wt 55.6 kg
[2019-05-17] MEDS ORDERED: NS 1,000 ML IV ONE (15:15)
[2019-05-17] MEDS ORDERED: ASPIRIN 81 MG CHEW TABLET PO ONE (15:15)
[2019-05-17] MEDS ORDERED: MAG SULF 1GM/100ML (MAG RUN) 1 GM in APPROPRIATE DILUENT 1 EA IV ONE (15:15)
[2019-05-17] MEDS ORDERED: ADENOSINE 6MG/2ML INJECTION (J0153) As Ordered ONE (15:23)
[2019-05-17 15:24] LABS: BASO # 0.1 10^3/uL (0.0-0.2); BASO % 1.2 % (0.0-1.0); EOS % 0.3 % (0.0-3.0); HEMATOCRIT 46.7 % (36.0-47.0); HEMOGLOBIN 14.9 g/dl (12.0-15.5); LYMPH # 2.6 10^3/uL (1.5-4.5); LYMPH % 26.5 % (24.0-44.0); MEAN CORPUSCULAR HEMOGLOBIN 31.2 pg (27.0-33.0); MEAN CORPUSCULAR HGB CONC 31.9 g/dl (32.0-36.5); MEAN CORPUSCULAR VOLUME 97.9 fl (80.0-96.0); MONO # 0.7 10^3/uL (0.0-0.8); MONO % 6.9 % (0.0-5.0); NEUTROPHILS # 6.4 10^3/uL (1.8-7.7); NEUTROPHILS % 64.7 % (36.0-66.0); PLATELET COUNT, AUTOMATED 417 10^3/uL (150-450); RED BLOOD COUNT 4.77 10^6/uL (4.00-5.40); WHITE BLOOD COUNT 9.9 10^3/uL (4.0-10.0)
[2019-05-17 15:36] LABS: INR 0.92; PROTHROMBIN TIME 12.1 SECONDS (11.8-14.0)
--- NOTE | 2019-05-17 15:42 | REP ---
Clinical: Acute chest pain . Comparison: 03/22/2019 . Findings: The mediastinum and cardiac silhouette are stable and within normal limits for portable technique. The lung oshea are clear without acute consolidation, effusion, or pneumothorax. Skeletal structures demonstrate old left humerus and right rib fractures. Impression: No obvious acute cardiopulmonary process appreciated. Electronically Signed by Anastacio Ritchie MD 05/17/2019 03:34 P
--- NOTE | 2019-05-17 15:48 | ECGEPIP ---
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
[2019-05-17 15:49] LABS: ALBUMIN 3.6 GM/DL (3.2-5.2); ALT/SGPT 11 U/L (12-78); BILIRUBIN,DIRECT 0.1 MG/DL (0.0-0.2); BILIRUBIN,TOTAL 0.3 MG/DL (0.2-1.0); BLOOD UREA NITROGEN 10 MG/DL (7-18); CALCIUM LEVEL 9.3 MG/DL (8.8-10.2); CARBON DIOXIDE LEVEL 19 MEQ/L (21-32); CHLORIDE LEVEL 105 MEQ/L (98-107); CK-MB VALUE MASS 1.6 NG/ML (<3.6); CPK CREATINE PHOSPHOKINASE 35 U/L (26-192); CREATININE FOR GFR 0.86 MG/DL (0.55-1.30); GLOMERULAR FILTRATION RATE > 60.0 (>39); GLUCOSE, FASTING 172 MG/DL (70-100); MAGNESIUM LEVEL 1.7 MG/DL (1.8-2.4); MB/CK RELATIVE INDEX 4.57 (< OR =4); POTASSIUM SERUM 5.5 MEQ/L (3.5-5.1); SODIUM LEVEL 135 MEQ/L (136-145); TOTAL PROTEIN 7.2 GM/DL (6.4-8.2); TROPONIN I < 0.02 NG/ML (< 0.10)
--- NOTE | 2019-05-17 15:49 | ECGEPIP ---
[facility] - ED Test Date: 2019-05-17 Pat Name: MARCELINO FOWLER Department: Room: - Gender: Female Ext Js Developer: PETE : 1945 Requested By: PROMISE ALDANA Order Number: [id number] Reading MD: Karen Oconnell Measurements Intervals [place] Rate: 71 P: 252 DE: 134 QRS: 12 QRSD: 77 T: 152 QT: 369 QTc: 404 Interpretive Statements JUNCTIONAL RHYTHM ST DEVIATION AND MODERATE T-WAVE ABNORMALITY, CONSIDER ISCHEMIA PRIOR Supraventricular tachycardia 15:08 Electronically Signed on 05-17-2019 15:48:48 EDT by Karen Oconnell
[2019-05-17] MEDS ORDERED: ASPI-524 PO (15:55)
[2019-05-17] MEDS ORDERED: DILT180C78 PO (15:55)
[2019-05-17] MEDS ORDERED: VALP1CAP2 PO (15:55)
[2019-05-17 17:05] VITALS: BP 97/63
== END 2019-05-17 17:10 | disposition home or self-care (01) ==
LOC: EDBD 15:02 → M ED 15:49
DX: I47.1 Supraventricular tachycardia (principal); I45.19 Other right bundle-branch block; I10 Essential (primary) hypertension; Z86.73 Personal history of transient ischemic attack (TIA), and cerebral infarction without residual deficits; Z72.0 Tobacco use; Z82.49 Family history of ischemic heart disease and other diseases of the circulatory system; Z79.82 Long term (current) use of aspirin; Z79.899 Other long term (current) drug therapy; Z88.8 Allergy status to other drugs, medicaments and biological substances
CPT/HCPCS: 71045; 80048; 80076; 82550; 82553; 83735; 84484; 85025; 85610; 93005; 93041; 94760; 96365; 96375; 99285; J3475

== ENCOUNTER 2019-06-15 14:18 | Emergency (ER) | payer MEDICARE ==
[~2019-06-15] VITALS: Ht 154.9 cm; Wt 53.2 kg
[~2019-06-15 14:18] MED LIST changes: +ASPI325T57 PO; +DILT180C78 PO; -GLIM1TAB PO; +GLIM1TAB4 PO; -SIMV10TA2 PO; +SIMV10TA21 PO; +VALP1CAP2 PO
[2019-06-15] MEDS ORDERED: TRAM50TA2 PO (16:48)
[2019-06-15] MEDS ORDERED: NS 1,000 ML IV ONE (18:00)
[2019-06-15] MEDS ORDERED: diazePAM 10 MG/2 ML INJ (J3360) IV ONE (18:00)
[2019-06-15 18:29] LABS: BASO # 0.1 10^3/uL (0.0-0.2); BASO % 0.5 % (0.0-1.0); EOS # 0.1 10^3/uL (0.0-0.50); EOS % 0.6 % (0.0-3.0); HEMATOCRIT 43.3 % (36.0-47.0); HEMOGLOBIN 13.5 g/dl (12.0-15.5); LYMPH # 2.5 10^3/uL (1.5-4.5); LYMPH % 20.4 % (24.0-44.0); MEAN CORPUSCULAR HEMOGLOBIN 31.3 pg (27.0-33.0); MEAN CORPUSCULAR HGB CONC 31.2 g/dl (32.0-36.5); MEAN CORPUSCULAR VOLUME 100.2 fl (80.0-96.0); MONO # 0.8 10^3/uL (0.0-0.8); MONO % 6.7 % (0.0-5.0); NEUTROPHILS # 8.7 10^3/uL (1.8-7.7); NEUTROPHILS % 71.2 % (36.0-66.0); PLATELET COUNT, AUTOMATED 418 10^3/uL (150-450); RED BLOOD COUNT 4.32 10^6/uL (4.00-5.40); WHITE BLOOD COUNT 12.2 10^3/uL (4.0-10.0)
[2019-06-15 18:40] LABS: INR 0.94; PROTHROMBIN TIME 12.3 SECONDS (11.8-14.0)
[2019-06-15 19:11] LABS: CK-MB VALUE MASS < 1.0 NG/ML (<3.6); CPK CREATINE PHOSPHOKINASE 71 U/L (26-192); FREE T4 1.13 NG/DL (0.76-1.46); MB/CK RELATIVE INDEX 1.41 (< OR =4); THYROID STIMULATING HORMONE 0.859 uIU/ML (0.358-3.740); TROPONIN I < 0.02 NG/ML (< 0.10)
[2019-06-15] MEDS ORDERED: ISOVUE-370 76% 100ML VIAL (Q9967) As Ordered ONE (19:32)
[2019-06-15 20:16] LABS: POTASSIUM SERUM 7.3 MEQ/L (3.5-5.1)
--- NOTE | 2019-06-15 20:17 | ECGEPIP ---
[facility] - ED Test Date: 2019-06-15 Pat Name: MARCELINO FOWLER Department: Room: - Gender: Female Radiation Control Health Physicist: KEILA : 1945 Requested By: RAVI GRACIA PA-C Order Number: [id number] Reading MD: Corey Johnston Measurements Intervals [place] Rate: 67 P: 69 [place]: 176 QRS: 10 QRSD: 86 T: 108 QT: 399 QTc: 424 Interpretive Statements SINUS RHYTHM NONSPECIFIC ST & T-WAVE ABNORMALITY IN LATERAL LEADS POOR R WAVE PROGRESSION CW 05/17/[address] T WAVE CHANGES Electronically Signed on 06-15-2019 20:17:27 EDT by Corey Johnston
--- NOTE | 2019-06-15 20:43 | REPVR ---
EXAM: CT Head Without Contrast EXAM DATE/TIME: 06/15/2019 7:38 PM CLINICAL HISTORY: 74 years old, female; Weakness, extremity; Additional info: New weakness numbness in right arm TECHNIQUE: Imaging protocol: Computed tomography images of the head without contrast. Coronal and sagittal reformatted images were created and reviewed. Radiation optimization: All CT scans at this facility use at least one of these dose optimization techniques: automated exposure control; mA and/or kV adjustment per patient size (includes targeted exams where dose is matched to clinical indication); or iterative reconstruction. COMPARISON: CT Head without contrast 03/05/2014 11:21 AM FINDINGS: Brain: There is moderate patchy low attenuation of deep white matter. There is mild prominence of the peripheral sulci. Scattered subarachnoid calcification was, particularly along the lateral right temporal lobe. Calcifications in the anterior aspect of the thalami bilaterally. Ventricles: There is mild prominence of the central ventricular system. Bones/joints: Unremarkable. No acute fracture. Sinuses: Visualized sinuses are unremarkable. No fluid levels. Mastoid air cells: Visualized mastoid air cells are well aerated. No mastoid effusion. Soft tissues: Unremarkable. IMPRESSION: 1. There has been little change from 03/05/2014. No acute interval intracranial process is identified. 2. Moderate chronic ischemic white matter change and mild atrophy. 3. Scattered calcifications which are unchanged. Electronically signed by: Rivas Castillo On 06/15/2019 20:43:17 PM
--- NOTE | 2019-06-15 20:51 | REPVR ---
EXAM: CT Angiography Head With Contrast EXAM DATE/TIME: 06/15/2019 7:38 PM CLINICAL HISTORY: 74 years old, female; Numbness; Additional info: New numbness/weknessrught upper ext TECHNIQUE: Imaging protocol: Computed tomographic angiography images of the head with intravenous contrast using CT angiography protocol. 3D rendering: MIP reconstructed images were created and reviewed. Radiation optimization: All CT scans at this facility use at least one of these dose optimization techniques: automated exposure control; mA and/or kV adjustment per patient size (includes targeted exams where dose is matched to clinical indication); or iterative reconstruction. Contrast material: ISOVUE 370;Contrast volume: 100 ml;Contrast route: IV; COMPARISON: CT Head without contrast 03/05/2014 11:21 AM FINDINGS: Right internal carotid artery: Unremarkable. Intracranial segment is patent with no significant stenosis. No aneurysm. Right anterior cerebral artery: Unremarkable. No occlusion or significant stenosis. No aneurysm. Right middle cerebral artery: Unremarkable. No occlusion or significant stenosis. No aneurysm. Right posterior cerebral artery: Unremarkable. No occlusion or significant stenosis. No aneurysm. Right vertebral artery: Unremarkable. No occlusion or significant stenosis. No aneurysm. Left internal carotid artery: Unremarkable. Intracranial segment is patent with no significant stenosis. No aneurysm. Left anterior cerebral artery: Unremarkable. No occlusion or significant stenosis. No aneurysm. Left middle cerebral artery: Unremarkable. No occlusion or significant stenosis. No aneurysm. Left posterior cerebral artery: Unremarkable. No occlusion or significant stenosis. No aneurysm. Left vertebral artery: Unremarkable. No occlusion or significant stenosis. No aneurysm. Basilar artery: Unremarkable. No occlusion or significant stenosis. No aneurysm. Other vasculature: Patent posterior communicating arteries bilaterally. Atherosclerotic calcification of the carotid siphons with 10% or less stenosis. IMPRESSION: Negative CTA head. 10% stenosis or less in the carotid siphons and no occlusion. Electronically signed by: Rivas Castillo On 06/15/2019 20:51:11 PM
--- NOTE | 2019-06-15 20:59 | REPVR ---
EXAM: CT Angiography Neck With Contrast EXAM DATE/TIME: 06/15/2019 7:38 PM CLINICAL HISTORY: 74 years old, female; Numbness; Additional info: New numbness/weakness right upper ext TECHNIQUE: Imaging protocol: Axial computed tomographic angiography images of the neck with intravenous contrast using CT angiography protocol. Coronal and sagittal reformatted images were created and reviewed. 3D rendering: MIP reconstructed images were created and reviewed. Radiation optimization: All CT scans at this facility use at least one of these dose optimization techniques: automated exposure control; mA and/or kV adjustment per patient size (includes targeted exams where dose is matched to clinical indication); or iterative reconstruction. Contrast material: ISOVUE 370;Contrast volume: 100 ml;Contrast route: IV; COMPARISON: No relevant prior studies available. FINDINGS: VASCULATURE: Right common carotid artery: Plaque in the distal right common carotid artery with less than 30% stenosis. Right internal carotid artery: Unremarkable extracranial segment. No stenosis. No dissection or occlusion. Right external carotid artery: Unremarkable. No occlusion or stenosis of the origin. Right vertebral artery: Unremarkable. No stenosis. No dissection or occlusion. Left common carotid artery: Plaque in the distal left common carotid artery extending into the internal carotid artery with less than 30% stenosis of the internal carotid artery. Left internal carotid artery: No significant stenosis which is estimated at less than 30% at the origin. No dissection or occlusion. Left external carotid artery: There is 50-70% at the origin of the left external carotid artery. Left vertebral artery: Plaque at the origin of the left vertebral artery involving the subclavian with 30% or less stenosis. NECK: Bones/joints: Degenerative changes of the cervical spine, particularly C4-C6. Soft tissues: Normal. No significant soft tissue swelling. IMPRESSION: 1. Distal right common carotid artery plaque with less than 30% stenosis. 2. Less than 30% stenosis of the proximal left internal carotid artery. 3. 50-70% origin stenosis of the left external carotid artery. 4. 30% or less stenosis at the origin of the left vertebral artery. 5. Otherwise negative CTA neck. No occlusion. COMMENT: Reference per NASCET criteria for degree of stenosis: Mild: less than 50% stenosis. Moderate: 50-69% stenosis. Severe: 70-94% stenosis. Near occlusion: 95-99% stenosis. Electronically signed by: Rivas Castillo On 06/15/2019 20:59:09 PM
[2019-06-15] MEDS ORDERED: PATIROMER SORBITEX CALCIUM 8.4 GM POWDER PACKET (VELTASSA) PO ONE (21:00)
[2019-06-15 22:01] VITALS: BP 122/60
[2019-06-16] MEDS ORDERED: MACR100C43 PO (01:35)
--- NOTE | 2019-06-16 16:23 | ED PDOC ---
Post-Departure Follow-Up dr mejia faxed formal report of hank for Corey Martinez MD Jun 16, 2019 16:23
[2019-07-31] MEDS ORDERED: FLUTISP (23:26)
== END 2019-06-16 01:52 | disposition home or self-care (01) ==
LOC: M ED 14:18
DX: N39.0 Urinary tract infection, site not specified (principal); E87.5 Hyperkalemia; E11.9 Type 2 diabetes mellitus without complications; I10 Essential (primary) hypertension; E78.5 Hyperlipidemia, unspecified; R56.9 Unspecified convulsions; Z86.73 Personal history of transient ischemic attack (TIA), and cerebral infarction without residual deficits; J45.909 Unspecified asthma, uncomplicated; G47.30 Sleep apnea, unspecified; K52.9 Noninfective gastroenteritis and colitis, unspecified; F41.9 Anxiety disorder, unspecified; K56.1 Intussusception; Z72.0 Tobacco use; R90.82 White matter disease, unspecified; Z79.82 Long term (current) use of aspirin; Z79.84 Long term (current) use of oral hypoglycemic drugs; Z79.899 Other long term (current) drug therapy; Z88.8 Allergy status to other drugs, medicaments and biological substances
CPT/HCPCS: 36415; 70450; 70496; 70498; 80047; 81001; 82550; 82553; 83735; 84132; 84439; 84443; 84484; 85025; 85610; 85730; 87088; 87186; 93005; 96361; 96374; 99284; J3360; Q9967

== ENCOUNTER 2019-06-20 14:24 | Emergency (ER) | payer MEDICARE ==
[~2019-06-20] VITALS: Ht 154.9 cm; Wt 52.7 kg
[~2019-06-20 14:24] MED LIST changes: +ASPI-524 PO; -ASPI325T57 PO; +GLIM1TAB PO; -GLIM1TAB4 PO; +MACR100C43 PO; +SIMV10TA2 PO; -SIMV10TA21 PO
[2019-06-20] MEDS ORDERED: predniSONE 20 MG TAB PO ONE (14:45)
[2019-06-20] MEDS ORDERED: IPRATROPIUM 0.5MG/ALBUTEROL 2.5MG INH SOL UD 3ML (DUONEB)(J7620) NEB ONE (14:45)
[2019-06-20 14:58] LABS: ABG BASE EXCESS -6.5 (-2.0-2.0); ABG HCO3 17.7 MEQ/L (22.0-26.0); ABG O2 SATURATION 97.6 % (95.0-99.0); ABG PARTIAL PRESSURE CO2 31.5 mmHg (35.0-45.0); ABG PARTIAL PRESSURE O2 93.1 mmHg (75.0-100.0); ABG STANDARD HCO3 19.2 MEQ/L (22.0-26.0); ABG TOTAL CO2 18.7 MEQ/L (23.0-31.0); ABG pH (ARTERIAL) 7.368 UNITS (7.350-7.450)
[2019-06-20] MEDS ORDERED: GABAPENTIN 100 MG CAP PO ONE (15:45)
[2019-06-20 16:05] LABS: BASO # 0.1 10^3/uL (0.0-0.2); BASO % 0.9 % (0.0-1.0); EOS # 0.1 10^3/uL (0.0-0.50); EOS % 0.9 % (0.0-3.0); HEMATOCRIT 40.7 % (36.0-47.0); HEMOGLOBIN 12.8 g/dl (12.0-15.5); LYMPH # 2.8 10^3/uL (1.5-4.5); LYMPH % 23.3 % (24.0-44.0); MEAN CORPUSCULAR HEMOGLOBIN 30.7 pg (27.0-33.0); MEAN CORPUSCULAR HGB CONC 31.4 g/dl (32.0-36.5); MEAN CORPUSCULAR VOLUME 97.6 fl (80.0-96.0); MONO # 1.1 10^3/uL (0.0-0.8); NEUTROPHILS % 65.6 % (36.0-66.0); PLATELET COUNT, AUTOMATED 378 10^3/uL (150-450); RED BLOOD COUNT 4.17 10^6/uL (4.00-5.40); WHITE BLOOD COUNT 12.2 10^3/uL (4.0-10.0)
[2019-06-20 17:00] LABS: ALBUMIN 3.2 GM/DL (3.2-5.2); ALT/SGPT 14 U/L (12-78); BILIRUBIN,DIRECT < 0.1 MG/DL (0.0-0.2); BILIRUBIN,TOTAL < 0.1 MG/DL (0.2-1.0); BLOOD UREA NITROGEN 18 MG/DL (7-18); CALCIUM LEVEL 9.1 MG/DL (8.8-10.2); CARBON DIOXIDE LEVEL 21 MEQ/L (21-32); CHLORIDE LEVEL 113 MEQ/L (98-107); CK-MB VALUE MASS 16.7 NG/ML (<3.6); CPK CREATINE PHOSPHOKINASE 122 U/L (26-192); GLOMERULAR FILTRATION RATE > 60.0 (>39); GLUCOSE, FASTING 138 MG/DL (70-100); MAGNESIUM LEVEL 1.7 MG/DL (1.8-2.4); MB/CK RELATIVE INDEX 13.69 (< OR =4); NT-PRO BNP 1162 PG/ML (<450); POTASSIUM SERUM 5.8 MEQ/L (3.5-5.1); SODIUM LEVEL 140 MEQ/L (136-145); TOTAL PROTEIN 6.2 GM/DL (6.4-8.2); TROPONIN I 5.09 NG/ML (< 0.10); VALPROIC ACID (DEPAKOTE) 46.7 UG/ML (50.0-100.0)
[2019-06-20] MEDS ORDERED: ASPIRIN 81 MG CHEW TABLET PO ONE (17:45)
[2019-06-20] MEDS ORDERED: NU-M1TAB PO (17:51)
[2019-06-20] MEDS ORDERED: BAYE325T16 PO (17:51)
[2019-06-20] MEDS ORDERED: BUSP5TA PO (17:51)
[2019-06-20] MEDS ORDERED: HYDR-4513 PO ×2 (17:51)
[2019-06-20] MEDS ORDERED: ROPI1TAB PO (17:51)
[2019-06-20] MEDS ORDERED: MACR100C43 PO (17:51)
[2019-06-20] MEDS ORDERED: HEPARIN DRIP 25,000 UNITS in APPROPRIATE DILUENT 1 EA IV SCH (18:09)
[2019-06-20] MEDS ORDERED: HEPARIN SOD (PORCINE) 5000 UNITS/ML VIAL IV ONE (18:15)
--- NOTE | 2019-06-20 18:49 | REP ---
REASON: Cough and dyspnea. COMPARISON: Multiple latest 05/17/2019. The technique utilized in obtaining the radiograph has magnified the cardiac silhouette and accentuated the interstitial markings. There is no significant change from the prior exam. The cardiac silhouette is accentuated by technique. Mild cardiomegaly is suspected. There are no acute patchy parenchymal opacities or pleural effusions. There is no change in the osseous structures. IMPRESSION: No significant change from the prior exam. Electronically Signed by Shaard Stahl DO 06/21/2019 09:58 A
[2019-06-20 19:00] VITALS: BP 129/60
--- NOTE | 2019-06-20 19:21 | REP ---
REASON: Left arm weakness. Multiple priors are reviewed, latest 06/15/2019. There is cerebral and cerebellar atrophic change status quo. No acute extra-axial fluid collections have developed. There is no shift of the midline structures. There are chronic cortical calcifications in the right temporal lobe. These have been stable for years. There is no evidence of an acute intracranial hemorrhagic or non-hemorrhagic event. There is no shift of the midline structures. The ventricles and sulci are unchanged. There is no change in the appearance of the skull or paranasal sinuses. IMPRESSION: Stable appearing chronic changes. There is no evidence of acute intracranial disease. There is cerebral and cerebellar atrophy status quo. There is deep white matter ischemic change status quo. Electronically Signed by Sharad Stahl DO 06/21/2019 10:01 A
--- NOTE | 2019-06-21 21:31 | ECGEPIP ---
[facility] - ED Test Date: 2019-06-20 Pat Name: MARCELINO FOWLER Department: Room: - Gender: Female Machine Stamper: John Paul : 1945 Requested By: Karen Oconnell Order Number: [id number] Reading MD: Karen Oconnell Measurements Intervals [place] Rate: 73 P: 82 [place]: 167 QRS: -10 QRSD: 94 T: 108 QT: 385 QTc: 425 Interpretive Statements SINUS RHYTHM NONSPECIFIC T-WAVE ABNORMALITY LOW VOLTAGE LIMB Electronically Signed on 06-21-2019 21:31:04 EDT by Karen Oconnell
--- NOTE | 2019-06-22 05:44 | ECGEPIP ---
[facility] - ED Test Date: 2019-06-20 Pat Name: MARCELINO FOWLER Department: Room: - Gender: Female Satellite Dish Repairer: [email or web address] : 1945 Requested By: Karen Oconnell Order Number: [id number] Reading MD: Kade Cervantes Measurements Intervals [place] Rate: 48 P: [place]: 0 QRS: 56 QRSD: 93 T: 28 QT: 481 QTc: 432 Interpretive Statements ATRIAL FIBRILLATION WITH SLOW VENTRICULAR RESPONSE LOW QRS VOLTAGE IN EXTREMITY LEADS NONSPECIFIC ST & T-WAVE ABNORMALITY SIMILAR TO PRIOR ON SAME DATE Electronically Signed on 06-22-2019 5:44:31 EDT by Kade Cervantes
--- NOTE | 2019-06-22 05:44 | ECGEPIP ---
[facility] - ED Test Date: 2019-06-20 Pat Name: MARCELINO FOWLER Department: Room: - Gender: Female Plant Breeder: [id number] : 1945 Requested By: Karen Oconnell Order Number: [id number] Reading MD: Kade Cervantes Measurements Intervals [place] Rate: 58 P: [place]: 0 QRS: 6 QRSD: 86 T: 118 QT: 389 QTc: 383 Interpretive Statements ATRIAL FIBRILLATION WITH SLOW VENTRICULAR RESPONSE NONSPECIFIC ST & T-WAVE ABNORMALITY RHYTHM/RATE CHANGE COMPARED TO 06/15/19 Electronically Signed on 06-22-2019 5:44:01 EDT by Kade Cervantes
== END 2019-06-20 19:01 | disposition short-term general hospital (02) ==
LOC: EDBD 14:24 → M ED 14:24
DX: I21.4 Non-ST elevation (NSTEMI) myocardial infarction (principal); E87.5 Hyperkalemia; E11.9 Type 2 diabetes mellitus without complications; I10 Essential (primary) hypertension; J44.9 Chronic obstructive pulmonary disease, unspecified; R56.9 Unspecified convulsions; I47.1 Supraventricular tachycardia; Z79.899 Other long term (current) drug therapy; Z79.84 Long term (current) use of oral hypoglycemic drugs; Z79.82 Long term (current) use of aspirin; Z88.8 Allergy status to other drugs, medicaments and biological substances; F17.210 Nicotine dependence, cigarettes, uncomplicated

== ENCOUNTER → 2019-07-24 | Outpatient (CLI) | payer MEDICARE ==
[~2019-07-24] MED LIST changes: +ACET-683 PO; +ADV250INH INH; +ALBU83IN NEB; -ASPI-524 PO; +ASPI325T57 PO; +ASPI81CH33 PO; +B-12100T2 PO; +BAYE325T16 PO; +CALCCAP4 PO; +D-20TAB PO; +DULC10SU2 PR; +ENSULIQ8 PO; +FLEEENE12 PR; +FLUD0.1T PO; +FLUTISP NARES; +GABA-1171 PO; +INCR1INH INH; +LIDO5TD TOP; +MAGN400T2 PO; +MELA5CAP2 PO; +METF-839 PO; +METO25TA4 PO; +MILKSUS3 PO; +MIRA3350 PO; +PANT40TA3 PO
== END ==
LOC: M EKG 18:36
DX: I48.91 Unspecified atrial fibrillation (principal)

== ENCOUNTER → 2019-07-24 | Outpatient (REF) | payer MEDICARE | LOC: M LAB 22:09 → SKLAB7 22:09 | PROVIDERS: ATTEND Internal Medicine | DX: Z79.899 Other long term (current) drug therapy (principal) ==

== ENCOUNTER → 2019-07-25 | Outpatient (REF) | payer MEDICARE ==
[~2019-07-25] MED LIST changes: +AMIO200T PO; +AMIO200T40 PO; +ASPI81CH8 PO; +CARD120C3 PO; +CARD180C4 PO; +ELIQ5TAB PO; +FERR1TAB8 PO; +FERR325T3 PO; +FLUTISP; -FLUTISP NARES; +FURO40TA2 PO; -GLIM1TAB PO; +GLIM1TAB4 PO; +INSUDET SC; +RISATAB3 PO; -SIMV10TA2 PO; +SIMV10TA21 PO
== END ==
LOC: SKLAB7 11:45
DX: R00.0 Tachycardia, unspecified (principal)

== ENCOUNTER 2019-07-31 19:47 | Inpatient (IN) | payer MEDICARE ==
[~2019-07-31] VITALS: Ht 154.9 cm; Wt 55.8 kg
[~2019-07-31 19:47] MED LIST changes: -ACET-683 PO; -ADV250INH INH; -ALBU83IN NEB; -AMIO200T PO; -AMIO200T40 PO; -ASPI81CH33 PO; -ASPI81CH8 PO; -B-12100T2 PO; -CALCCAP4 PO; -CARD120C3 PO; -CARD180C4 PO; -D-20TAB PO; -DULC10SU2 PR; -ELIQ5TAB PO; -ENSULIQ8 PO; -FERR1TAB8 PO; -FERR325T3 PO; -FLEEENE12 PR; -FLUD0.1T PO; -FLUTISP; -FURO40TA2 PO; -GABA-1171 PO; +GLIM1TAB PO; -GLIM1TAB4 PO; -INCR1INH INH; -INSUDET SC; -LIDO5TD TOP; -MAGN400T2 PO; -MELA5CAP2 PO; -METF-839 PO; -METO25TA4 PO; -MILKSUS3 PO; -MIRA3350 PO; -PANT40TA3 PO; -RISATAB3 PO; +SIMV10TA2 PO; -SIMV10TA21 PO
[2019-07-31] MEDS ORDERED: ADENOSINE 6MG/2ML INJECTION (J0153) As Ordered ONE (20:18)
[2019-07-31] MEDS ORDERED: ADENOSINE 6MG/2ML INJECTION (J0153) IV STA (20:19)
[2019-07-31 20:32] LABS: BASO # 0.1 10^3/uL (0.0-0.2); BASO % 0.9 % (0.0-1.0); EOS # 0.2 10^3/uL (0.0-0.5); HEMATOCRIT 35.2 % (36.0-47.0); HEMOGLOBIN 10.5 g/dl (12.0-15.5); LYMPH # 3.6 10^3/uL (1.5-5.0); LYMPH % 24.9 % (24.0-44.0); MEAN CORPUSCULAR HEMOGLOBIN 28.5 pg (27.0-33.0); MEAN CORPUSCULAR HGB CONC 29.8 g/dl (32.0-36.5); MEAN CORPUSCULAR VOLUME 95.7 fl (80.0-96.0); MONO # 1.5 10^3/uL (0.0-0.8); MONO % 10.1 % (0.0-5.0); NEUTROPHILS % 61.9 % (36.0-66.0); PLATELET COUNT, AUTOMATED 522 10^3/uL (150-450); RED BLOOD COUNT 3.68 10^6/uL (4.00-5.40); WHITE BLOOD COUNT 14.5 10^3/uL (4.0-10.0)
[2019-07-31 20:43] LABS: INR 1.08; PROTHROMBIN TIME 13.7 SECONDS (11.8-14.0)
[2019-07-31 20:44] LABS: PARTIAL THROMBOPLASTIN TIME 27.8 SECONDS (25.0-38.4)
[2019-07-31 21:00] LABS: BLOOD UREA NITROGEN 12 MG/DL (7-18); CALCIUM LEVEL 7.1 MG/DL (8.8-10.2); CARBON DIOXIDE LEVEL 27 MEQ/L (21-32); CHLORIDE LEVEL 106 MEQ/L (98-107); CK-MB VALUE MASS < 1.0 NG/ML (<3.6); CPK CREATINE PHOSPHOKINASE 35 U/L (26-192); CREATININE FOR GFR 0.62 MG/DL (0.55-1.30); GLOMERULAR FILTRATION RATE > 60.0 (>39); GLUCOSE, FASTING 237 MG/DL (70-100); MAGNESIUM LEVEL 1.5 MG/DL (1.8-2.4); MB/CK RELATIVE INDEX 2.86 (< OR =4); NT-PRO BNP 10909 PG/ML (<450); POTASSIUM SERUM 4.2 MEQ/L (3.5-5.1); SODIUM LEVEL 142 MEQ/L (136-145); TROPONIN I 0.02 NG/ML (< 0.10)
[2019-07-31] MEDS: **NOTE PATIENT COMMENT** MISC XX SCH (21:00)
[2019-07-31] MEDS: HumaLOG INSULIN (NovoLOG) PER UNIT SC SCH (21:00)
[2019-07-31] MEDS ORDERED: MAG SULF 1GM/100ML (MAG RUN) 1 GM in APPROPRIATE DILUENT 1 EA IV ONE (21:15)
[2019-07-31] MEDS ORDERED: PIPERACILLIN/TAZOBACTAM SOD 3.375 GM in D5W MINI-BAG PLUS 50 ML IV ONE (22:15)
[2019-07-31] MEDS ORDERED: NS 1,000 ML IV ONE (22:30)
[2019-07-31] MEDS ORDERED: ASPI81CH33 PO (23:04)
[2019-07-31] MEDS ORDERED: DULC10SU2 PR (23:04)
[2019-07-31] MEDS ORDERED: MELA5CAP2 PO (23:04)
[2019-07-31] MEDS ORDERED: NICO7DIS4 TD (23:04)
[2019-07-31] MEDS ORDERED: CALCCAP4 PO (23:13)
[2019-07-31] MEDS ORDERED: FLEEENE12 PR (23:13)
[2019-07-31] MEDS ORDERED: ALBU83IN NEB (23:13)
[2019-07-31] MEDS ORDERED: MILKSUS3 PO (23:13)
[2019-07-31] MEDS ORDERED: METF-839 PO (23:13)
[2019-07-31] MEDS ORDERED: MAALOX 30 ML SUSP *UDC PO PRN (23:15)
[2019-07-31] MEDS ORDERED: MOM 30ML SUSPENSION UDC PO PRN (23:15)
[2019-07-31] MEDS ORDERED: ENSULIQ8 PO (23:26)
[2019-07-31] MEDS ORDERED: LIDO5TD TOP (23:26)
[2019-07-31] MEDS ORDERED: B-12100T2 PO (23:26)
[2019-07-31] MEDS ORDERED: INCR1INH INH (23:26)
[2019-07-31] MEDS ORDERED: FLUD0.1T PO (23:26)
[2019-07-31] MEDS ORDERED: PANT40TA3 PO (23:26)
[2019-07-31] MEDS ORDERED: METO25TA4 PO (23:26)
[2019-07-31] MEDS ORDERED: GABA-1171 PO (23:26)
[2019-07-31] MEDS ORDERED: D-20TAB PO (23:26)
[2019-07-31] MEDS ORDERED: ADV250INH INH (23:26)
[2019-07-31] MEDS ORDERED: ACET-683 PO (23:26)
[2019-07-31] MEDS ORDERED: FLUTISP NARES (23:26)
[2019-07-31] MEDS ORDERED: MIRA3350 PO (23:29)
[2019-07-31] MEDS ORDERED: MAGN400T2 PO (23:29)
[2019-08-01] MEDS ORDERED: DEXTROSE 50% 50 ML SYRINGE IV PRN (00:30)
[2019-08-01] MEDS ORDERED: GLUCOSE 4 GM CHEW TABLET PO PRN (00:30)
[2019-08-01] MEDS ORDERED: GLUCAGON FOR INJ 1 MG VIAL (J1610) SC PRN (00:30)
--- NOTE | 2019-08-01 00:49 | HPEPDOC ---
General Date of Admission Date of Service: Jul 31, 2019 Chief Complaint The patient is a 74-year-old female admitted with a reason for visit of Cardiac Problem. Source: Patient, Family Exam Limitations: No limitations Timing/Duration: 4-6 hours Severity: Moderate Associated Symptoms: Shortness of breath History of Present Illness Ms. Solano is a 74 years old woman who presents to Er for SOB and chest tightness. She was noted to have SVT with rate of 167. She received two dises of Adenosine with conversion to sinus rhythm. She remains in the sinus rythm now. Pt denies chest pain, cough, fever or chills. CXR shows small RLL infiltrates. EKG: SR with no significant St-T changes. Troponin is negative. TSH is pending. Vitals and mental status are good. Pt is afebrile. WBC 14.5K, Lactate 3.9. Family report that pt is having SVT episode almost every month. She was admitted here in April for PNA and SVT. Home Medications Scheduled Alendronate Sodium (Alendronate Sodium) 70 Mg Tablet, 70 MG PO QWEEK, (Reported) MONDAYS Aspirin (Aspirin) 81 Mg Tab.chew, 81 MG PO DAILY, (Reported) Buspirone HCl (Buspirone HCl) 5 Mg Tablet, 5 MG PO BID, (Reported) Calcium Carbonate/Vitamin D3 (Calcium 600 + Vit D 400 Softgl) 1 Each Capsule, 1 CAP PO DAILY, (Reported) Cholecalciferol (Vitamin D3) (Vitamin D3) 2,000 Unit Tablet, 2,000 UNIT PO DAILY, (Reported) Cyanocobalamin (Vitamin B-12) (Vitamin B-12) 100 Mcg Tablet, 100 MCG PO DAILY, (Reported) Fludrocortisone Acetate (Fludrocortisone Acetate) 0.1 Mg Tablet, 0.1 MG PO DAILY, (Reported) Fluticasone Propionate (Fluticasone Propionate) 16 Gm [place].susp, 1 SPRAY NARES DAILY, (Reported) Gabapentin (Gabapentin) 100 Mg Capsule, 100 MG PO TID, (Reported) Hydrocortisone (Hydrocortisone) 10 Mg Tablet, 20 MG PO QAM, (Reported) Hydrocortisone (Hydrocortisone) 10 Mg Tablet, 10 MG PO QHS, (Reported) Lactose-Reduced Food (Ensure Liquid) 237 Ml Liquid, 120 ML PO BID, (Reported) 2029 Lidocaine (Lidocaine) 5% Adh..patch, 1 PATCH TOP DAILY, (Reported) Magnesium Oxide (Magnesium Oxide) 400 Mg Tablet, 400 MG PO DAILY, (Reported) Metformin HCl (Metformin HCl) 500 Mg Tablet, 1,000 MG PO BID, (Reported) 0800, 1700 Metoprolol Tartrate (Metoprolol Tartrate) 25 Mg Tablet, 25 MG PO TID, (Reported) 0830, 1700, 2100 Nicotine (Nicoderm Cq) 7 Mg/24 Hr Patch.td24, 1 PATCH TD BID, (Reported) Pantoprazole Sodium (Pantoprazole Sodium) 40 Mg Tablet.dr, 40 MG PO DAILY, (Reported) Salmeterol/Fluticasone (Advair 250-50 Diskus) 1 Each Blst.w.dev, 1 PUFF INH BID, (Reported) Spironolactone (Spironolactone) 25 Mg Tablet, 25 MG PO DAILY, (Reported) Umeclidinium [place] (Incruse Ellipta) 62.5 Mcg Blst.w.dev, 1 PUFF INH QHS, (Reported) Valproic Acid (Depakene) 250 Mg Cap, 250 MG PO TID, (Reported) 0800, 1400, 2000 Scheduled PRN Acetaminophen (Acetaminophen) 500 Mg Tablet, 500 MG PO Q4H PRN for PAIN, (Reported) Albuterol Sulf (Albuterol Sulfate) 2.5 Mg/3 Ml Vial.neb, 1 VIAL NEB Q2H PRN for SOB/WHEEZING, (Reported) Bisacodyl (Dulcolax) 10 Mg Supp.rect, 10 MG VA DAILY PRN for CONSTIPATION, (Rep orted) Magnesium Hydroxide (Milk of Magnesia) 400 Mg/5 Ml Oral.susp, 2,400 MG PO for CONSTIPATION, (Reported) Melatonin (Melatonin) 5 Mg Capsule, 5 MG PO QHS PRN for SLEEP, (Reported) Polyethylene Glycol 3350 (Miralax) 119 Gm Powder, 17 GM PO DAILY PRN for CONSTIPATION, (Reported) dilute in 8 ounces of water or juice Sodium Phosphate,[place]-Dibasic (Fleet Enema) 133 Ml Enema, 1 CHRISTI VA for BOWEL CARE/CONSTIPATION, (Reported) Tramadol HCl (Tramadol HCl) 50 Mg Tablet, 50 MG PO Q6H PRN for PAIN, (Reported) Allergies Coded Allergies: propoxyphene (Verified Allergy, Intermediate, hives, 07/31/19) Past Medical History Medical History Recurrent SVT, hypertension, COPD, and DM, CAD, seizure Surgical History Spine surgery Family History Significant Family History: No pertinent family hx Brother had pancreatic cancer Mother with COPD Father with DM Social History * Smoker: current smoker Alcohol: Denies Drugs: denies A-FIB/CHADSVASC A-FIB History Current/History of A-Fib/PAF?: No Review of Systems Constitutional: Denies: Chills, Fever, Malaise Eyes: Denies: Pain, Vision change ENT: Denies: Head Aches, Ear Pain Skin: Denies: Rash Pulmonary: Reports: Dyspnea; Denies: Cough, Pleuritic Chest Pain Cardiovascular: Denies: Chest Pain, Edema Gastrointestinal: Denies: Nausea, Vomiting, Abdominal Pain, Diarrhea Genitourinary: Denies: Dysuria, Frequency Endocrine: Denies: Polydipsia, Polyphagia Musculoskeletal: Denies: Neck Pain, Back Pain, Shoulder Pain Neurological: Denies: Weakness, Numbness, Change in speech, Confusion Psych: Reports: Mood Normal; Denies: Anxiety, Depression Physical Examination General Exam: Positive: Alert, Cooperative, No Acute Distress Eye Exam: Positive: PERRLA, Conjunctiva & lids normal ENT Exam: Positive: Atraumatic, Mucous membr. moist/pink Neck Exam: Positive: Supple; Negative: JVD Chest Exam: Positive: Clear to auscultation, Normal air movement Heart Exam: Positive: Rate Normal, Regular Rhythm, Murmurs (systolic murmur (old)) Telemetry: Positive: No significant arrhythmia, Sinus Abdomen Exam: Positive: Normal bowel sounds, Soft; Negative: Tenderness Extremity Exam: Positive: Edema Skin Exam: Positive: Nl turgor and temperature; Negative: Rash, Breakdown Neuro Exam: Positive: Normal Speech, Strength at 5/5 X4 ext, Normal Tone Psych Exam: Positive: Mental status NL, Mood NL; Negative: Anxiety Vital Signs Vital Signs Date Time Temp Pulse Resp B/P (MAP) Pulse Ox O2 Delivery O2 Flow Rate FiO2 07/31/19 22:17 70 16 97 Nasal Cannula 2.0 07/31/19 22:00 114/58 (76) 07/31/19 19:50 97.1 Laboratory Data Labs 24H Laboratory Tests 2 07/31/19 20:16: Immature Granulocyte % (Auto) 1.2, White Blood Count 14.5H, Red Blood Count 3.68L, Hemoglobin 10.5L, Hematocrit 35.2L, Mean Corpuscular Volume 95.7, Mean Corpuscular Hemoglobin 28.5, Mean Corpuscular Hemoglobin Concent 29.8L, Red Cell Distribution Width 14.9H, Platelet Count 522H, Neutrophils (%) (Auto) 61.9, Lymphocytes (%) (Auto) 24.9, Monocytes (%) (Auto) 10.1H, Eosinophils (%) (Auto) 1.0, Basophils (%) (Auto) 0.9, Neutrophils # (Auto) 9.0H, Lymphocytes # (Auto) 3.6, Monocytes # (Auto) 1.5H, Eosinophils # (Auto) 0.2, Basophils # (Auto) 0.1, Nucleated Red Blood Cells % (auto) 0.0, Prothrombin Time 13.7, Prothromb Time International Ratio 1.08, Activated Partial Thromboplast Time 27.8, Anion Gap 9, Glomerular Filtration Rate > 60.0, Blood Urea Nitrogen 12, Creatinine 0.62, Sodium Level 142, Potassium Level 4.2, Chloride Level 106, Carbon Dioxide Level 27, Calcium Level 7.1L, Total Creatine Kinase 35, Magnesium Level 1.5L, Creatine Kinase MB < 1.0, Creatine Kinase MB Relative Index 2.86, Troponin I 0.02, VJ-Sml-I-Type Natriuretic Peptide [id number] 07/31/19 21:49: Lactic Acid Level 3.9*H CBC/BMP Laboratory Tests 07/31/19 20:16 Red Blood Count 3.68 L, Mean Corpuscular Volume 95.7, Mean Corpuscular Hemoglobin 28.5, Mean Corpuscular Hemoglobin Concent 29.8 L, Red Cell Distribution Width 14.9 H, Neutrophils (%) (Auto) 61.9, Lymphocytes (%) (Auto) 24.9, Monocytes (%) (Auto) 10.1 H, Eosinophils (%) (Auto) 1.0, Basophils (%) (Auto) 0.9, Neutrophils # (Auto) 9.0 H, Lymphocytes # (Auto) 3.6, Monocytes # (Auto) 1.5 H, Eosinophils # (Auto) 0.2, Basophils # (Auto) 0.1, Calcium Level 7.1 L, Total Creatine Kinase 35 Microbiology Microbiology 07/31/19 Blood Culture, Received Pending 07/31/19 Blood Culture, Received Pending Assessment/Plan SVT - Keep on observation - Continue home dose of beta jamal - Cardiology consult as needed Penumonia - Levaquin oral - Pt is not hypoxic; has no signs of sepsis Hypomagnesemia - Supplemented in the ER - repeat level int he morning Recent Spine surgery, currently at Rehab facility - Continue PT/OT while int he hospital Home meds for chronic conditions. Plan / VTE VTE Prophylaxis Ordered?: No VTE Exclusion Mechanical Proph: Low Risk for VTE VTE Exclusion Pharmacological: At Low Risk for VTE Plan Diet: Continue Current Activity: Continue Current Therapy: PT, OT Anticipated Discharge: Sub Acute Rehab (back to rehab) MAXIMUS GROVES MD Jul 31, 2019 23:12
[2019-08-01] MEDS ORDERED: BISACODYL 10 MG SUPP PR PRN (01:15)
[2019-08-01] MEDS ORDERED: MIRALAX *UNIT DOSE* 17GM PACKET PO PRN (01:15)
[2019-08-01] MEDS ORDERED: LevoFLOXacin 750 MG TABLET PO SCH (06:00)
[2019-08-01 07:15] LABS: HEMATOCRIT 31.4 % (36.0-47.0); HEMOGLOBIN 9.3 g/dl (12.0-15.5); MEAN CORPUSCULAR HEMOGLOBIN 27.5 pg (27.0-33.0); MEAN CORPUSCULAR HGB CONC 29.6 g/dl (32.0-36.5); MEAN CORPUSCULAR VOLUME 92.9 fl (80.0-96.0); PLATELET COUNT, AUTOMATED 506 10^3/uL (150-450); RED BLOOD COUNT 3.38 10^6/uL (4.00-5.40); WHITE BLOOD COUNT 9.9 10^3/uL (4.0-10.0)
--- NOTE | 2019-08-01 07:15 | ECGEPIP ---
[facility] - ED Test Date: 2019-07-31 Pat Name: MARCELINO FOWLER Department: Room: [place] [address] Gender: Female [employer] Member: ct : 1945 Requested By: RAJAN Cole Order Number: [id number] Reading MD: Kade Cervantes Measurements Intervals [place] Rate: 170 P: MS: 0 QRS: 66 QRSD: 83 T: 255 QT: 262 QTc: 442 Interpretive Statements SUPRAVENTRICULAR TACHYCARDIA POOR R WAVE PROGRESSION ST DEVIATION AND MODERATE T-WAVE ABNORMALITY, CONSIDER INFERIOR ISCHEMIA RHYTHM/RATE CHANGE COMPARED TO 07/24/19 Electronically Signed on 08-01-2019 7:15:36 EDT by Kade Cervantes
--- NOTE | 2019-08-01 07:17 | ECGEPIP ---
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
[2019-08-01 07:48] LABS: ALBUMIN 2.4 GM/DL (3.2-5.2); ALT/SGPT 20 U/L (12-78); BILIRUBIN,TOTAL 0.2 MG/DL (0.2-1.0); BLOOD UREA NITROGEN 13 MG/DL (7-18); CALCIUM LEVEL 7.4 MG/DL (8.8-10.2); CARBON DIOXIDE LEVEL 32 MEQ/L (21-32); CHLORIDE LEVEL 105 MEQ/L (98-107); GLOMERULAR FILTRATION RATE > 60.0 (>39); GLUCOSE, FASTING 125 MG/DL (70-100); POTASSIUM SERUM 3.7 MEQ/L (3.5-5.1); SODIUM LEVEL 145 MEQ/L (136-145); TOTAL PROTEIN 5.6 GM/DL (6.4-8.2)
[2019-08-01] MEDS: ADVAIR HFA 230/21MCG INHALER INH SCH ×2 (07:56→19:09)
--- NOTE | 2019-08-01 08:08 | REP ---
CHEST, PORTABLE: AP portable view of the chest is performed. COMPARISON: 06/20/2019. Small bilateral pleural effusions are noted with bibasilar infiltrates. There is mild cardiomegaly. There is calcification of the thoracic aorta. The mediastinal silhouette is unchanged. Proximal left humeral deformity is noted. IMPRESSION: Cardiomegaly with mild bibasilar infiltrates and effusions. Electronically Signed by Ace Lester MD 08/02/2019 05:43 P
[2019-08-01] MEDS: METOPROLOL TART 25 MG TABLET PO SCH ×3 (09:00→22:09)
[2019-08-01] MEDS: VALPROIC ACID 250 MG CAP PO SCH ×3 (09:00→22:08)
[2019-08-01] MEDS: cefTRIAXone SOD 1 GM in D5W MINI-BAG PLUS 50 ML IV SCH (10:00)
--- NOTE | 2019-08-01 10:01 | IPNPDOC ---
Subjective Date Seen The patient was seen on 08/01/19. Subjective Chief Complaint/HPI Nate of coughing and mild shortness of breath, but no chest pain, dizziness, etc. General: Denies: ROS Unobtainable, Chills, Night Sweats, Fatigue, Malaise, Normal Appetite, Other Symptoms Constitutional: Denies: Chills, Fever, Malaise, Night Sweats, Weakness, Fatigue, Weight Loss, Lethargy, Other Skin: Denies: Rash, Lesions, Jaundice, Bruising, Itching, Dry, Breakdown, Nail Changes, Other Pulmonary: Reports: Dyspnea, Cough; Denies: Pleuritic Chest Pain Cardiovascular: Denies: Chest Pain, Palpitations, Orthopnea, Paroxysmal Noc. Dyspnea, Edema, Lt Headedness, Other Symptoms Gastrointestinal: Denies: Nausea, Vomiting, Abdominal Pain, Diarrhea, Constipation, Melena, Hematochezia, Other Symptoms Musculoskeletal: Denies: Neck Pain, Back Pain, Shoulder Pain, Arm Pain, Hand Pain, Leg Pain, Foot Pain, Joint Pain, Muscle Pain, Spasms, Other Symptoms Neurological: Denies: Weakness, Numbness, Incoordination, Change in speech, Confusion, Seizures, Other Symptoms Objective Physical Examination Neck Exam: Positive: Supple Chest Exam: Positive: Wheezing, Other (crackles at right base) Heart Exam: Positive: Rate Normal, Regular Rhythm, Murmurs (systolic murmur (old)) Telemetry: Positive: No significant arrhythmia, Sinus Abdomen Exam: Positive: Normal bowel sounds, Soft Extremity Exam: Positive: Edema Skin Exam: Positive: Nl turgor and temperature Neuro Exam: Positive: Normal Speech, Strength at 5/5 X4 ext, Normal Tone Assessment /Plan Problems (1) SVT (supraventricular tachycardia) Status: Resolved Problem Text: 73 years old lady with history of recurrent SVT follows up with Dr. Zepeda was admitted last night with the recurrent SVT and possible pneumonia. Patient is on job checker SVT has resolved. She is in normal sinus rhythm Discussed with Dr. Zepeda. Continue metoprolol 25 mg by mouth 3 times a day Further recommendations as per cardiology (2) Pneumonia Status: Acute Problem Text: Chest x-ray is consistent with:Cardiomegaly with mild bibasilar infiltrates and effusions. Patient did receive a dose of Zosyn in ED and again 1 dose of by mouth Levaquin . I will change antibiotics to IV Rocephin Repeat level. 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 Repeat chest x-ray in 2-3 days (3) Hypomagnesemia Status: Acute Problem Text: Magnesium was supplemented Repeat levels in a.m. (4) Chronic obstructive pulmonary disease Status: Chronic Problem Text: , Xopenex every 6 hours Continue home meds Also, will start by mouth prednisone 40 mg by mouth daily Plan/VTE VTE Prophylaxis Ordered?: Yes Plan Diet: Continue Current Activity: Continue Current Therapy: PT, OT Anticipated Discharge: Sub Acute Rehab (back to rehab) VS, I&O, 24H, Fishbone Vital Signs/I&O Vital Signs Date Time Temp Pulse Resp B/P (MAP) Pulse Ox O2 Delivery O2 Flow Rate FiO2 08/01/19 09:45 67 20 99 08/01/19 07:24 149/68 (95) 07/31/19 22:17 Nasal Cannula 2.0 07/31/19 19:50 97.1 I&O- Last 24 Hours up to 6 AM 08/01/19 05:59 Intake Total 100 ml Balance 100 ml Laboratory Data 24H LABS Laboratory Tests 2 07/31/19 20:16: Immature Granulocyte % (Auto) 1.2, White Blood Count 14.5H, Red Blood Count 3.68L, Hemoglobin 10.5L, Hematocrit 35.2L, Mean Corpuscular Volume 95.7, Mean Corpuscular Hemoglobin 28.5, Mean Corpuscular Hemoglobin Concent 29.8L, Red Cell Distribution Width 14.9H, Platelet Count 522H, Neutrophils (%) (Auto) 61.9, Lymphocytes (%) (Auto) 24.9, Monocytes (%) (Auto) 10.1H, Eosinophils (%) (Auto) 1.0, Basophils (%) (Auto) 0.9, Neutrophils # (Auto) 9.0H, Lymphocytes # (Auto) 3.6, Monocytes # (Auto) 1.5H, Eosinophils # (Auto) 0.2, Basophils # (Auto) 0.1, Nucleated Red Blood Cells % (auto) 0.0, Prothrombin Time 13.7, Prothromb Time International Ratio 1.08, Activated Partial Thromboplast Time 27.8, Anion Gap 9, Glomerular Filtration Rate > 60.0, Blood Urea Nitrogen 12, Creatinine 0.62, Sodium Level 142, Potassium Level 4.2, Chloride Level 106, Carbon Dioxide Level 27, Calcium Level 7.1L, Total Creatine Kinase 35, Magnesium Level 1.5L, Creatine Kinase MB < 1.0, Creatine Kinase MB Relative Index 2.86, Troponin I 0.02, [id number]-Type Natriuretic Peptide [id number] 07/31/19 21:49: Lactic Acid Level 3.9*H 08/01/19 00:33: Bedside Glucose (Misc Panel) 125H 08/01/19 02:13: Lactic Acid Followup at 4 Hours 1.6 08/01/19 07:05: Nucleated Red Blood Cells % (auto) 0.0, Anion Gap 8, Glomerular Filtration Rate > 60.0, Blood Urea Nitrogen 13, Creatinine 0.50L, Sodium Level 145, Potassium Level 3.7, Chloride Level 105, Carbon Dioxide Level 32, Calcium Level 7.4L, Aspartate Amino Transf (AST/SGOT) 18, Alanine Aminotransferase (ALT/SGPT) 20, Alkaline Phosphatase 80, Total Bilirubin 0.2, Total Protein 5.6L, Albumin 2.4L, Albumin/Globulin Ratio 0.75L CBC/BMP Laboratory Tests 07/31/19 20:16 Red Blood Count 3.68 L, Mean Corpuscular Volume 95.7, Mean Corpuscular Hemoglobin 28.5, Mean Corpuscular Hemoglobin Concent 29.8 L, Red Cell Distribution Width 14.9 H, Neutrophils (%) (Auto) 61.9, Lymphocytes (%) (Auto) 24.9, Monocytes (%) (Auto) 10.1 H, Eosinophils (%) (Auto) 1.0, Basophils (%) (Auto) 0.9, Neutrophils # (Auto) 9.0 H, Lymphocytes # (Auto) 3.6, Monocytes # (Auto) 1.5 H, Eosinophils # (Auto) 0.2, Basophils # (Auto) 0.1, Calcium Level 7.1 L, Total Creatine Kinase 35 08/01/19 07:05 Red Blood Count 3.38 L, Mean Corpuscular Volume 92.9, Mean Corpuscular Hemoglobin 27.5, Mean Corpuscular Hemoglobin Concent 29.6 L, Red Cell Distribution Width 15.1 H, Calcium Level 7.4 L, Aspartate Amino Transf (AST/SGOT) 18, Alanine Aminotransferase (ALT/SGPT) 20, Alkaline Phosphatase 80, Total Bilirubin 0.2, Total Protein 5.6 L, Albumin 2.4 L Microbiology Microbiology 07/31/19 Blood Culture, Received Pending 07/31/19 Blood Culture, Received Pending LAKESHA ANDERSEN MD Aug 01, 2019 10:00
[2019-08-01] MEDS: HumaLOG INSULIN (NovoLOG) PER UNIT SC SCH ×4 (11:44→21:00)
[2019-08-01] MEDS: GABAPENTIN 100 MG CAP PO SCH ×3 (13:08→22:09)
[2019-08-01] MEDS: ENOXAPARIN 40 MG/0.4 ML SYRINGE (J1650) SC SCH (13:08)
[2019-08-01] MEDS: predniSONE 20 MG TAB PO SCH (13:09)
[2019-08-01] MEDS: busPIRone 5 MG TAB PO SCH ×2 (13:09→22:08)
[2019-08-01] MEDS: VITAMIN D 1,000 INTERNATIONAL UNITS TABLET PO SCH (13:09)
[2019-08-01] MEDS: SPIRONOLACTONE 25 MG TAB PO SCH (13:10)
[2019-08-01] MEDS: ASPIRIN 81 MG ENTERIC TAB PO SCH (13:10)
[2019-08-01] MEDS: PANTOPRAZOLE 40MG TAB (PROTONIX) PO SCH (13:11)
[2019-08-01] MEDS: LIDOCAINE 5% (LIDODERM) PATCH TOP SCH (13:12)
[2019-08-01] MEDS: LEVALBUTEROL 1.25 MG/0.5 ML CONCENTRATE NEB INH SCH ×2 (13:36→20:00)
[2019-08-01] MEDS: MAGNESIUM OXIDE 400 MG TAB (MAG-OX) PO SCH (15:27)
[2019-08-01] MEDS: NICOTINE 7 MG/24 HR TRANSDERMAL TD SCH ×2 (15:31→22:08)
[2019-08-01] MEDS: FLUDROCORTISONE ACETATE 0.1 MG TAB PO SCH (15:32)
[2019-08-01] MEDS: HYDROCORTISONE 10 MG TAB PO SCH ×2 (15:32→22:08)
[2019-08-01 16:45] VITALS: BP 146/67
--- NOTE | 2019-08-01 17:43 | CR ---
DATE OF CONSULTATION: REFERRING PHYSICIAN: Dr. Cheung INDICATION: Supraventricular tachycardia. HISTORY OF PRESENT ILLNESS: Mrs. Solano is known to me. She is a pleasant 74-year female who has a multitude of medical issues. She presented to [facility] ([facility]) earlier today after she developed sensation of palpitations and shortness of breath last night. The patient reports that it took at least two and half hours before the ambulance was called, and on presentation to the emergency room (ER) she was found to be in narrow complex tachycardia, which was regular with ventricular rate 170 beats per minute. She received total of 12 mg of adenosine, which led to taoist of sinus rhythm with frequent atrial ectopy. I was asked to see her to assist with further management. The patient complains still about shortness of breath. She apparently presented in June 2019 with sudden neurological symptoms that included weakness of both upper and lower extremities and was found to have cervical spine compression. She underwent fairly emergent surgery at [facility] in [place]. She is currently undergoing rehabilitation, but she still has difficulty ambulating, even with the walker. She still has weakness of upper extremities, and she is a lot more short of breath after the surgery than she was previously. PAST MEDICAL HISTORY: 1. Recurrent episodes of supraventricular tachycardia. She previously was well controlled with Cardizem extended release 180 mg twice a day, but the medication was discontinued somewhere in the last few months, I suspect in the setting of large cervical surgery. We do not know whether the patient has coronary artery disease. She refused any evaluation in past due to severe claustrophobia. She also refused consideration of supraventricular tachycardia (SVT) ablation, because she said that she is so anxious that she is unable to tolerate ride to [place]. 2. Chronic obstructive pulmonary disease (COPD). 3. Type 2 diabetes. 4. Hypertension. 5. Dyslipidemia. 6. Adrenal insufficiency. SURGICAL HISTORY: Positive for: 1. Hysterectomy. 2. Breast biopsy. 3. Recent cervical spine surgery. SOCIAL HISTORY: The patient is , lives with her . She continued to smoke until very recently. No recent alcohol use. FAMILY HISTORY: Mother had COPD., father diabetes, and brother of pancreatic cancer. REVIEW OF SYSTEMS: She denies any recent fever, chills, nausea, vomiting, or diarrhea. She reports approximately [place] [employer] class III dyspnea, which is chronic. She also reports mostly nonproductive cough. There has been lot of weakness in both upper and lower extremities since her presentation in June, and she is slowly recovering. Denies any chest pain. Besides last night, she has had recurrent episodes of palpitations over the last several months. PHYSICAL EXAMINATION: Mrs. Solano looks elderly, frail, and chronically ill. She does not appear to be currently in any acute distress. Last set of vital signs: Blood pressure 130/61, heart rate has been in 70s, sinus rhythm with frequent atrial ectopy. She is afebrile. Saturation is 100% on 3 liters of oxygen by nasal cannula. Weight is documented at 64 kg. She is alert and oriented and appropriate. She seems to be tired and appears mildly dyspneic, even at rest. Her jugular venous pulse (JVP) is not elevated. Lungs reveal end-inspiratory crackles and rhonchi bilaterally, more on the left than right. No wheezing. Heart: Regular rhythm with occasional ectopy. There is about a 2/6 intensity systolic murmur, best heard over the base. Abdomen is soft, nontender. There is minimal peripheral edema. Peripheral pulses are palpable. Neurologically, she is alert, oriented, and appropriate. I did not do any formal testing of her muscle strength. LABORATORY: Basic metabolic panel this morning is normal but for glucose 125. Her lactic acid last night was 3.9. She had normal liver function tests. Albumin was 2.4. CBC reveals hemoglobin 9.3, hematocrit 31, platelet count 506,000, WBC count is 9.9 after it was 14 last night. Valproic acid level was not drawn. Her INR is 1.08. Chest x-ray reveals evidence of cervical surgery, which is new compared to her previous x-ray in June. There are small bilateral pleural effusions and possible infiltrate in lower lobes. Does appear slightly congested as well. ECG on presentation revealed narrow complex tachycardia without discernible P waves and ventricular rate 170. Subsequent revealed sinus rhythm with premature atrial contractions (PACs), nonspecific repolarization abnormalities with somewhat prominent T-wave inversions in V4-V6, which are new compared to prior ECG in sinus rhythm. ASSESSMENT AND PLAN: Mrs. Solano is an elderly female who does not have established coronary artery disease but does have multiple risk factors for coronary artery disease and no history of evaluation in this regard, who presented with supraventricular tachycardia (SVT). After conversion to sinus rhythm, she is found to be in sinus rhythm but has fairly significant repolarization abnormalities. She did not have any chest pain during the SVT. Her only symptom was shortness of breath, and she does not have elevated troponin, at least the initial one. The last echocardiogram I have available on her is from March of this year and revealed hyperdynamic left ventricular (LV) systolic function and aortic sclerosis with an only minimal stenosis. She subsequently was treated with Cardizem that was successful preventing episodes of SVT. At this setting, I initially need to rule out that she does not have active ischemia, considering ECG abnormalities. Consequently, will obtain followup electrocardiogram and troponin tomorrow morning. I hope that there will not be anything evolving. In the interim, I will give her aspirin and continue metoprolol. Provided her cardiac enzymes remain negative, I believe that we can switch her to Cardizem as of tomorrow, which hopefully will prevent further episodes of SVT, as it was successfully used for several months on outpatient basis prior to this presentation. The second concern of mine is her chest x-ray. In my opinion, it is consistent with congestive heart failure, which is further supported by her extremely high brain natriuretic peptide (BNP). I think it is prudent to obtain an echocardiogram, and I would also use gentle diuretics. I suspect that it was provoked by her tachycardia that lasted several hours before it was terminated. Nevertheless, she feels more short of breath since her cervical surgery.
[2019-08-01] MEDS: ACETAMINOPHEN TAB 650MG DOSE (2X325MG) PO PRN (18:57)
[2019-08-01 20:00] VITALS: BP 132/68
[2019-08-01] MEDS: **NOTE PATIENT COMMENT** MISC XX SCH (21:00)
[2019-08-01] MEDS: FLUTICASONE PROP 0.05% NASAL SPRAY 16 GM (FLONASE) NARES SCH (22:08)
[2019-08-01 23:59] VITALS: BP_SYST 138; BP_SYST 160; BP_DIAS 76; BP_DIAS 94
[2019-08-02] MEDS: LEVALBUTEROL 1.25 MG/0.5 ML CONCENTRATE NEB INH SCH ×4 (01:29→20:00)
[2019-08-02 04:00] VITALS: BP 142/82
[2019-08-02] MEDS: ACETAMINOPHEN TAB 650MG DOSE (2X325MG) PO PRN ×2 (04:35→22:53)
[2019-08-02 05:33] LABS: BASO % 0.3 % (0.0-1.0); EOS % 0.1 % (0.0-3.0); HEMATOCRIT 31.4 % (36.0-47.0); HEMOGLOBIN 9.4 g/dl (12.0-15.5); LYMPH # 1.2 10^3/uL (1.5-5.0); LYMPH % 12.9 % (24.0-44.0); MEAN CORPUSCULAR HGB CONC 29.9 g/dl (32.0-36.5); MEAN CORPUSCULAR VOLUME 93.5 fl (80.0-96.0); MONO # 0.5 10^3/uL (0.0-0.8); MONO % 5.9 % (0.0-5.0); NEUTROPHILS # 7.2 10^3/uL (1.5-8.5); NEUTROPHILS % 80.1 % (36.0-66.0); PLATELET COUNT, AUTOMATED 494 10^3/uL (150-450); RED BLOOD COUNT 3.36 10^6/uL (4.00-5.40)
[2019-08-02 06:05] LABS: ALBUMIN 2.2 GM/DL (3.2-5.2); ALT/SGPT 14 U/L (12-78); BILIRUBIN,TOTAL 0.3 MG/DL (0.2-1.0); BLOOD UREA NITROGEN 11 MG/DL (7-18); CALCIUM LEVEL 7.4 MG/DL (8.8-10.2); CARBON DIOXIDE LEVEL 32 MEQ/L (21-32); CHLORIDE LEVEL 103 MEQ/L (98-107); CREATININE FOR GFR 0.58 MG/DL (0.55-1.30); GLOMERULAR FILTRATION RATE > 60.0 (>39); GLUCOSE, FASTING 189 MG/DL (70-100); MAGNESIUM LEVEL 1.6 MG/DL (1.8-2.4); POTASSIUM SERUM 3.6 MEQ/L (3.5-5.1); SODIUM LEVEL 142 MEQ/L (136-145); THYROID STIMULATING HORMONE 0.457 uIU/ML (0.358-3.740); TOTAL PROTEIN 5.7 GM/DL (6.4-8.2); TROPONIN I 0.04 NG/ML (< 0.10)
[2019-08-02] MEDS ORDERED: MAG SULF 1GM/100ML (MAG RUN) 1 GM in APPROPRIATE DILUENT 1 EA IV ONE (07:30)
[2019-08-02 07:51] LABS: NT-PRO BNP 6728 PG/ML (<450)
[2019-08-02 08:00] VITALS: BP 159/75
[2019-08-02] MEDS: ADVAIR HFA 230/21MCG INHALER INH SCH ×2 (08:00→20:05)
[2019-08-02] MEDS ORDERED: FUROSEMIDE 40 MG/4 ML VIAL (J1940) IV SCH (09:00)
[2019-08-02] MEDS: ENOXAPARIN 40 MG/0.4 ML SYRINGE (J1650) SC SCH (09:07)
[2019-08-02] MEDS: HumaLOG INSULIN (NovoLOG) PER UNIT SC SCH ×4 (09:07→21:00)
[2019-08-02] MEDS: LIDOCAINE 5% (LIDODERM) PATCH TOP SCH (09:08)
[2019-08-02] MEDS: FLUTICASONE PROP 0.05% NASAL SPRAY 16 GM (FLONASE) NARES SCH (09:10)
[2019-08-02] MEDS: NICOTINE 7 MG/24 HR TRANSDERMAL TD SCH ×2 (09:10→22:52)
[2019-08-02] MEDS: HYDROCORTISONE 10 MG TAB PO SCH ×2 (09:11→21:59)
[2019-08-02] MEDS: MAGNESIUM OXIDE 400 MG TAB (MAG-OX) PO SCH (09:11)
[2019-08-02] MEDS: VITAMIN D 1,000 INTERNATIONAL UNITS TABLET PO SCH (09:11)
[2019-08-02] MEDS: SPIRONOLACTONE 25 MG TAB PO SCH (09:12)
[2019-08-02] MEDS: METOPROLOL TART 25 MG TABLET PO SCH ×3 (09:12→21:59)
[2019-08-02] MEDS: PANTOPRAZOLE 40MG TAB (PROTONIX) PO SCH (09:12)
[2019-08-02] MEDS: ASPIRIN 81 MG ENTERIC TAB PO SCH (09:12)
[2019-08-02] MEDS: GABAPENTIN 100 MG CAP PO SCH ×3 (09:12→21:59)
[2019-08-02] MEDS: busPIRone 5 MG TAB PO SCH ×2 (09:12→21:59)
[2019-08-02] MEDS: VALPROIC ACID 250 MG CAP PO SCH ×3 (09:12→21:59)
[2019-08-02] MEDS: predniSONE 20 MG TAB PO SCH (09:12)
[2019-08-02] MEDS: FLUDROCORTISONE ACETATE 0.1 MG TAB PO SCH (09:12)
--- NOTE | 2019-08-02 09:16 | REP ---
CHEST, SINGLE VIEW: Single view of the chest is performed and compared to prior study of 07/31/2019. There is cardiomegaly and vascular congestion with interstitial prominence diffusely bilaterally. Bibasilar infiltrates and effusions appear slightly increased. There is calcification of the thoracic aorta. Mediastinal silhouette is unchanged. IMPRESSION: Cardiomegaly with vascular congestion and diffuse interstitial prominence. Slight increase in bibasilar infiltrates and effusions. Findings suggest CHF and pulmonary edema. Electronically Signed by Ace Lester MD 08/02/2019 05:56 P
--- NOTE | 2019-08-02 10:17 | IPNPDOC ---
Subjective Date Seen The patient was seen on 08/02/19. Subjective Chief Complaint/HPI Patient is still complaining of trouble breathing but is in no apparent respiratory distress General: Reports: ROS Unobtainable Constitutional: Denies: Chills, Fever, Malaise, Night Sweats, Weakness, F atigue, Weight Loss, Lethargy, Other ENT: Denies: Head Aches, Ear Pain, Dysphagia, Sinus Congestion, Post Nasal Drip, Sore Throat, Epistaxis, Other Symptoms Skin: Denies: Rash, Lesions, Jaundice, Bruising, Itching, Dry, Breakdown, Nail Changes, Other Pulmonary: Reports: Dyspnea Cardiovascular: Denies: Chest Pain, Palpitations, Orthopnea, Paroxysmal Noc. Dyspnea, Edema, Lt Headedness, Other Symptoms Gastrointestinal: Denies: Nausea, Vomiting, Abdominal Pain, Diarrhea, Constipation, Melena, Hematochezia, Other Symptoms Musculoskeletal: Denies: Neck Pain, Back Pain, Shoulder Pain, Arm Pain, Hand Pain, Leg Pain, Foot Pain, Joint Pain, Muscle Pain, Spasms, Other Symptoms Neurological: Denies: Weakness, Numbness, Incoordination, Change in speech, Confusion, Seizures, Other Symptoms Objective Physical Examination General Exam: Positive: Alert, Cooperative Neck Exam: Positive: Supple Chest Exam: Positive: Diminished, Other (wheezing has resolved. No crackles, breath sounds are diminished bilaterally) Heart Exam: Positive: Rate Normal, Regular Rhythm, Murmurs (systolic murmur (old)) Telemetry: Positive: No significant arrhythmia, Sinus Abdomen Exam: Positive: Normal bowel sounds, Soft Extremity Exam: Positive: Edema Skin Exam: Positive: Nl turgor and temperature Neuro Exam: Positive: Normal Speech, Strength at 5/5 X4 ext, Normal Tone Assessment /Plan Problems (1) SVT (supraventricular tachycardia) Status: Resolved Problem Text: 73 years old lady with history of recurrent SVT follows up with Dr. Zepeda was admitted last night with the recurrent SVT and possible pneumonia. Continue telemetry monitoring Patient is in normal sinus rhythm right now Continue beta blockers and aspirin Cardiology consult appreciated If she doesn't remain in normal sinus rhythm. She might be candidate to add calcium channel blockers (2) Pneumonia Status: Acute Problem Text: Chest x-ray is consistent with:Cardiomegaly with mild bibasilar infiltrates and effusions. Patient did receive a dose of Zosyn in ED and again 1 dose of by mouth Levaquin . I will change antibiotics to IV Rocephin CBC in a.m. Repeat chest x-ray to the 3 days (3) Hypomagnesemia Status: Acute Problem Text: Magnesium supplemented again today The levels in a.m. (4) Chronic obstructive pulmonary disease Status: Chronic Problem Text: Xopenex every 6 hours Decrease prednisone to 30 mg by mouth daily Continue present care (5) Acute diastolic (congestive) heart failure Status: Acute Problem Specific Plan: Consult Specialist (cardiology) Problem Text: As per cardiology. Previous echo done in March 2019 showed a hyperdynamic left ventricle with aortic sclerosis Repeat echo has been ordered Considering increased BNP. Patient will be started on Lasix 40 mg IV daily I and O's Repeat BNP in a.m. Further, as per cardiology's recommendation Plan/VTE VTE Prophylaxis Ordered?: Yes Plan Diet: Continue Current Activity: Continue Current Therapy: PT, OT Anticipated Discharge: Sub Acute Rehab (back to rehab) VS, I&O, [facility] Vital Signs/I&O Vital Signs Date Time Temp Pulse Resp B/P (MAP) Pulse Ox O2 Delivery O2 Flow Rate FiO2 08/02/19 09:12 68 159/75 08/02/19 08:00 97.3 18 100 2.0 08/01/19 16:17 Nasal Cannula I&O- Last 24 Hours up to 6 AM 08/02/19 06:00 Intake Total 550 ml Output Total 301 ml Balance 249 ml Laboratory Data 24H LABS Laboratory Tests 2 08/01/19 14:27: Bedside Glucose (Misc Panel) 156H 08/01/19 18:18: Bedside Glucose (Misc Panel) 127H 08/01/19 20:32: Bedside Glucose (Misc Panel) 206H 08/02/19 04:46: Immature Granulocyte % (Auto) 0.7, White Blood Count 9.0, Red Blood Count 3.36L, Hemoglobin 9.4L, Hematocrit 31.4L, Mean Corpuscular Volume 93.5, Mean Co rpuscular Hemoglobin 28.0, Mean Corpuscular Hemoglobin Concent 29.9L, Red Cell Distribution Width 14.7H, Platelet Count 494H, Neutrophils (%) (Auto) 80.1H, Lymphocytes (%) (Auto) 12.9L, Monocytes (%) (Auto) 5.9H, Eosinophils (%) (Auto) 0.1, Basophils (%) (Auto) 0.3, Neutrophils # (Auto) 7.2, Lymphocytes # (Auto) 1.2L, Monocytes # (Auto) 0.5, Eosinophils # (Auto) 0.0, Basophils # (Auto) 0.0, Nucleated Red Blood Cells % (auto) 0.0, Anion Gap 7L, Glomerular Filtration Rate > 60.0, Blood Urea Nitrogen 11, Creatinine 0.58, Sodium Level 142, Potassium Level 3.6, Chloride Level 103, Carbon Dioxide Level 32, Calcium Level 7.4L, Aspartate Amino Transf (AST/SGOT) 7, Alanine Aminotransferase (ALT/SGPT) 14, Alkaline Phosphatase 69, Total Bilirubin 0.3, Total Protein 5.7L, Albumin 2.2L, Magnesium Level 1.6L, Troponin I 0.04#, YB-Jhu-N-Type Natriuretic Peptide 6728H, Albumin/Globulin Ratio 0.63L, Thyroid Stimulating Hormone (TSH) 0.457 CBC/BMP Laboratory Tests 08/02/19 04:46 Red Blood Count 3.36 L, Mean Corpuscular Volume 93.5, Mean Corpuscular Hemoglobin 28.0, Mean Corpuscular Hemoglobin Concent 29.9 L, Red Cell Distribution Width 14.7 H, Neutrophils (%) (Auto) 80.1 H, Lymphocytes (%) (Auto) 12.9 L, Monocytes (%) (Auto) 5.9 H, Eosinophils (%) (Auto) 0.1, Basophils (%) (A uto) 0.3, Neutrophils # (Auto) 7.2, Lymphocytes # (Auto) 1.2 L, Monocytes # (Auto) 0.5, Eosinophils # (Auto) 0.0, Basophils # (Auto) 0.0, Calcium Level 7.4 L, Aspartate Amino Transf (AST/SGOT) 7, Alanine Aminotransferase (ALT/SGPT) 14, Alkaline Phosphatase 69, Total Bilirubin 0.3, Total Protein 5.7 L, Albumin 2.2 L Microbiology Microbiology 07/31/19 Blood Culture - Preliminary, Resulted No growth after 24 hours . All specim... 07/31/19 Blood Culture - Preliminary, Resulted No growth after 24 hours . All specim... LAKESHA ANDERSEN MD Aug 02, 2019 10:17
[2019-08-02 12:00] VITALS: BP 162/71
--- NOTE | 2019-08-02 12:57 | ECGEPIP ---
[facility] Test Date: 2019-08-02 Pat Name: MARCELINO FOWLER Department: Room: V4881-71 Gender: Female Raveler: ERICKA : 1945 Requested By: Vahe Zepeda Order Number: [id number] Reading MD: Colin May Measurements Intervals [place] Rate: 67 P: 86 VT: 155 QRS: 11 QRSD: 82 T: 120 QT: 398 QTc: 421 Interpretive Statements SINUS RHYTHM WITH OCCASIONAL SUPRAVENTRICULAR PREMATURE COMPLEXES ST DEVIATION AND MODERATE T-WAVE ABNORMALITY, CONSIDER LATERAL ISCHEMIA Similar to tracing done 07-31-19 at 20:42 except with normalized QTc Electronically Signed on 08-02-2019 12:57:49 EDT by Colin May
--- NOTE | 2019-08-02 14:03 | IPN ---
DATE: 08/02/2019 Mrs. Solano is not doing very well. She continues to feel very short of breath with fairly minimal exertion. She had a PT this morning and when I entered the room she just finished a couple minutes ago. It took at least 5 minutes for her breathing to come down. Denies any chest discomfort other than some soreness that has been present she says virtually all the time. Blood pressure 159/75. Heart rate has been from 60s to 80s, sinus rhythm with occasional ectopy. She is afebrile. Saturation is 100% on 2 liters of oxygen. Fluid balance yesterday was approximately equal. Weight is up though 65.4 kg compared to yesterday. She is alert and oriented appropriate. Her jugular venous pulse (JVP) is high at least 6 or 7 cm above clavicle. Lungs are relatively clear but for diminished breath sounds over bases, but I do not appreciate any crackles or wheezing. Abdomen is soft without tenderness or rebound tenderness. Extremities have about 1+ edema. Neurologically, she is alert and oriented appropriate. There is some weakness of all extremities. Laboratories: Sodium 142, potassium 3.6, BUN 11, creatinine 0.6, glucose 179, magnesium is 1.6 and terminal proBNP is 6700, which is about 30% less than it was 2 days ago, and albumin is 2.2. ECG reveals sinus rhythm with T-wave inversions precordially unchanged from yesterday. Hemoglobin 9.4, hematocrit 31.4. ASSESSMENT AND PLAN: Mrs. Solano is a 74-year-old lady who presented with supraventricular tachycardia (SVT) that was terminated by adenosine. It occurred in spite of her receiving metoprolol 25 mg three times a day. As far as the SVT is concerned, this was already a sixth recurrence this year. The only medication that previously was successful in preventing the episodes was Cardizem. She used to be on 180 mg twice a day. I am not quite ready to make the transition to Cardizem as yet until I am convinced that her left ventricle ejection fraction is preserved. She has new T-wave inversions, which could be just due to tachycardia, but I want to make sure that she has not developed LV dysfunction since her last echo only 3 or 4 months ago. I will order one for tomorrow but if she has preserved left ventricular ejection fraction (LVEF) we can transition her from metoprolol to Cardizem. She does have known aortic stenosis but it was trivial. The second issue is that of congestive heart failure. I am not quite sure why she would be in heart failure now, but it is something that has changed after her surgery in [facility], but it is conceivable that there are several factors involved. I believe lack of good appetite and consequently poor nutrition and low albumin level probably contribute. In any case, it is most likely diastolic congestive heart failure. I am going to increase the dose of furosemide to 40 mg twice a day. She is already on spironolactone. Will continue monitoring her. I do not believe she is ready to return back to rehab yet. We need to have her better compensated before she can leave.
[2019-08-02] MEDS: cefTRIAXone SOD 1 GM in D5W MINI-BAG PLUS 50 ML IV SCH (14:53)
[2019-08-02 16:00] VITALS: BP 140/60
[2019-08-02 20:00] VITALS: BP 151/69
[2019-08-02] MEDS: **NOTE PATIENT COMMENT** MISC XX SCH (21:00)
[2019-08-02 23:59] VITALS: BP 118/56
[2019-08-03] MEDS: LEVALBUTEROL 1.25 MG/0.5 ML CONCENTRATE NEB INH SCH ×2 (02:00→08:00)
[2019-08-03 04:00] VITALS: BP 132/74
[2019-08-03 05:38] LABS: BASO % 0.5 % (0.0-1.0); EOS % 0.1 % (0.0-3.0); HEMATOCRIT 28.5 % (36.0-47.0); HEMOGLOBIN 8.6 g/dl (12.0-15.5); LYMPH # 1.5 10^3/uL (1.5-5.0); MEAN CORPUSCULAR HEMOGLOBIN 27.9 pg (27.0-33.0); MEAN CORPUSCULAR HGB CONC 30.2 g/dl (32.0-36.5); MEAN CORPUSCULAR VOLUME 92.5 fl (80.0-96.0); MONO # 0.8 10^3/uL (0.0-0.8); MONO % 10.1 % (0.0-5.0); NEUTROPHILS # 5.6 10^3/uL (1.5-8.5); NEUTROPHILS % 69.9 % (36.0-66.0); PLATELET COUNT, AUTOMATED 439 10^3/uL (150-450); RED BLOOD COUNT 3.08 10^6/uL (4.00-5.40)
[2019-08-03 06:02] LABS: ALBUMIN 2.1 GM/DL (3.2-5.2); ALT/SGPT 10 U/L (12-78); BILIRUBIN,TOTAL 0.2 MG/DL (0.2-1.0); BLOOD UREA NITROGEN 11 MG/DL (7-18); CALCIUM LEVEL 7.5 MG/DL (8.8-10.2); CARBON DIOXIDE LEVEL 36 MEQ/L (21-32); CHLORIDE LEVEL 100 MEQ/L (98-107); CREATININE FOR GFR 0.49 MG/DL (0.55-1.30); GLOMERULAR FILTRATION RATE > 60.0 (>39); GLUCOSE, FASTING 185 MG/DL (70-100); MAGNESIUM LEVEL 1.6 MG/DL (1.8-2.4); NT-PRO BNP 9288 PG/ML (<450); POTASSIUM SERUM 3.3 MEQ/L (3.5-5.1); SODIUM LEVEL 142 MEQ/L (136-145); TOTAL PROTEIN 5.4 GM/DL (6.4-8.2)
[2019-08-03] MEDS ORDERED: POTASSIUM CHLORIDE 10 MEQ SR TABLET PO ONE ×2 (06:30→07:30)
[2019-08-03] MEDS ORDERED: MAG SULF 1GM/100ML (MAG RUN) 1 GM in APPROPRIATE DILUENT 1 EA IV ONE (07:30)
[2019-08-03 08:00] VITALS: BP 160/47
--- NOTE | 2019-08-03 08:01 | IPN ---
DATE: 08/03/2019 Mrs. Solano had a relatively unremarkable night other than the fact that she did not sleep much. She was making a lot of urine from her midnight dose of furosemide, but she tells me that she normally does not sleep anyhow. Her dyspnea feels close to her baseline. No chest pains. There were no arrhythmias on telemetry, but looking at telemetry strips it appears that her T-wave abnormalities are more prominent, Otherwise, vital signs: Blood pressure 132/72, heart rate has been in 60s and 70s, afebrile. Saturation 100% on 2 liters. Fluid balance yesterday about negative 800 and plus another negative 1100 this morning. She lost about 3 kg since admission. She is alert and oriented appropriate. Her jugular venous pulse (JVP) does not look high. She actually lays flat in the bed. Lungs are reasonably clear with only occasional crackles over bases. Heart: Exam regular rhythm. No gallop, rub. There is a murmur at the base. Abdomen: Soft, nontender. No peripheral edema. LABORATORY: Basic metabolic panel is normal but for potassium 3.3 and glucose 185, albumin is still low at 2.1. CBC hemoglobin 8.6, hematocrit 28, platelet count 439,000. ASSESSMENT/PLAN: Mrs. Solano is a 74-year-old female who has a multitude of medical issues. She presented with supraventricular tachycardia (SVT) that responded to administration of adenosine. She also has evidence for congestive heart failure with bilateral pleural effusions. Her cardiac enzymes were negative but BNP was very high and overall finding was consistent with congestive heart failure. We started somewhat with more aggressive diuresis yesterday. So far she had good urine output but her BNP this morning is actually higher than it was yesterday, which is rather surprising. I will obtain followup EKG today because it seems that there are abnormalities on telemetry even though the interpretation P-wave morphology in this setting can be deceiving. She is scheduled to have an echocardiogram later today which should give us some insight. Starting to be suspicious that she may have developed LV dysfunction since her last echocardiogram that was performed only a few months ago. But in the interim, she underwent large spinal surgery that led to prolonged immobility and hospitalization and I suspect that events could have been easily missed. She remains to be quite ill and I will follow her with you. No order changes were made today.
[2019-08-03] MEDS: NICOTINE 7 MG/24 HR TRANSDERMAL TD SCH ×2 (08:43→21:52)
[2019-08-03] MEDS: FLUTICASONE PROP 0.05% NASAL SPRAY 16 GM (FLONASE) NARES SCH (08:44)
[2019-08-03] MEDS: LIDOCAINE 5% (LIDODERM) PATCH TOP SCH (08:44)
[2019-08-03] MEDS: ENOXAPARIN 40 MG/0.4 ML SYRINGE (J1650) SC SCH (08:44)
[2019-08-03] MEDS: PANTOPRAZOLE 40MG TAB (PROTONIX) PO SCH (08:45)
[2019-08-03] MEDS: HumaLOG INSULIN (NovoLOG) PER UNIT SC SCH ×4 (08:45→21:53)
[2019-08-03] MEDS: busPIRone 5 MG TAB PO SCH ×2 (08:45→21:54)
[2019-08-03] MEDS: VITAMIN D 1,000 INTERNATIONAL UNITS TABLET PO SCH (08:46)
[2019-08-03] MEDS: FLUDROCORTISONE ACETATE 0.1 MG TAB PO SCH (08:46)
[2019-08-03] MEDS: SPIRONOLACTONE 25 MG TAB PO SCH (08:47)
[2019-08-03] MEDS: MAGNESIUM OXIDE 400 MG TAB (MAG-OX) PO SCH (08:47)
[2019-08-03] MEDS: GABAPENTIN 100 MG CAP PO SCH ×3 (08:47→21:54)
[2019-08-03] MEDS: ASPIRIN 81 MG ENTERIC TAB PO SCH (08:47)
[2019-08-03] MEDS: METOPROLOL TART 25 MG TABLET PO SCH ×3 (08:47→21:00)
[2019-08-03] MEDS: HYDROCORTISONE 10 MG TAB PO SCH ×2 (08:47→21:54)
[2019-08-03] MEDS ORDERED: FUROSEMIDE 40 MG/4 ML VIAL (J1940) IV SCH ×2 (09:00)
[2019-08-03] MEDS ORDERED: predniSONE 10 MG TAB PO SCH (09:00)
[2019-08-03] MEDS: ADVAIR HFA 230/21MCG INHALER INH SCH ×2 (09:24→20:00)
--- NOTE | 2019-08-03 09:39 | IPNPDOC ---
Subjective Date Seen The patient was seen on 08/03/19. Subjective Chief Complaint/HPI Patient had no new complaint except mild shortness of breath still there is slightly improved from previously General: Denies: ROS Unobtainable, Chills, Night Sweats, Fatigue, Malaise, Normal Appetite, Other Symptoms Constitutional: Denies: Chills, Fever, Malaise, Night Sweats, Weakness, Fatigue, Weight Loss, Lethargy, Other Skin: Denies: Rash, Lesions, Jaundice, Bruising, Itching, Dry, Breakdown, Nail Changes, Other Pulmonary: Reports: Dyspnea Cardiovascular: Denies: Chest Pain, Palpitations, Orthopnea, Paroxysmal Noc. Dyspnea, Edema, Lt Headedness, Other Symptoms Gastrointestinal: Denies: Nausea, Vomiting, Abdominal Pain, Diarrhea, Constipation, Melena, Hematochezia, Other Symptoms Endocrine: Denies: Polydipsia, Polyphagia, Polyuria, Heat Intolerance, Cold Intolerance, Other Endocrine Sx Musculoskeletal: Denies: Neck Pain, Back Pain, Shoulder Pain, Arm Pain, Hand Pain, Leg Pain, Foot Pain, Joint Pain, Muscle Pain, Spasms, Other Symptoms Neurological: Denies: Weakness, Numbness, Incoordination, Change in speech, Confusion, Seizures, Other Symptoms Objective Physical Examination General Exam: Positive: Alert, Cooperative Neck Exam: Positive: Supple Chest Exam: Positive: Diminished, Other (wheezing has resolved. No crackles, breath sounds are diminished bilaterally) Heart Exam: Positive: Rate Normal, Regular Rhythm, Murmurs (systolic murmur (old)) Telemetry: Positive: No significant arrhythmia, Sinus Abdomen Exam: Positive: Normal bowel sounds, Soft Extremity Exam: Positive: Edema Skin Exam: Positive: Nl turgor and temperature Neuro Exam: Positive: Normal Speech, Strength at 5/5 X4 ext, Normal Tone Assessment /Plan Problems (1) SVT (supraventricular tachycardia) Status: Resolved Problem Text: 73 years old lady with history of recurrent SVT follows up with Dr. Zepeda was admitted last night with the recurrent SVT and possible pneumonia. Continue telemetry monitoring Patient is in normal sinus rhythm right now Continue beta blockers and aspirin Cardiology follow-up appreciated Repeat EKG has been ordered Echocardiogram is pending today Continue beta blockers as per cardiology (2) Pneumonia Status: Acute Problem Text: Chest x-ray is consistent with:Cardiomegaly with mild bibasilar infiltrates and effusions. Patient did receive a dose of Zosyn in ED and again 1 dose of by mouth Levaquin Continue IV Rocephin WBC count is essentially within normal limit, CBC in a.m. (3) Hypomagnesemia Status: Acute Problem Text: Magnesium supplement mag sulfate 1 g IV ordered today Repeat mag level in a.m. (4) Chronic obstructive pulmonary disease Status: Chronic Problem Text: . Changes, open no stare every 6 hours when necessary Taper off prednisone to DC as there is no more wheezing on examination Continue present care (5) Acute diastolic (congestive) heart failure Status: Acute Problem Specific Plan: Consult Specialist (cardiology) Problem Text: As per cardiology. Previous echo done in March 2019 showed a hyperdynamic left ventricle with aortic sclerosis Repeat echocardiogram is still pending BNP is increased to 9288 Continue Lasix 40 mg IV every 12 hours Patient is in negative balance on intake and output Repeat BNP again in a.m. (6) Hypokalemia Status: Acute Problem Text: Potassium supplemented today Be levels in a.m. Plan/VTE VTE Prophylaxis Ordered?: Yes Plan Diet: Continue Current Activity: Continue Current Therapy: PT, OT Anticipated Discharge: Sub Acute Rehab (back to rehab) VS, I&O, 24H, Fishbone Vital Signs/I&O Vital Signs Date Time Temp Pulse Resp B/P (MAP) Pulse Ox O2 Delivery O2 Flow Rate FiO2 08/03/19 08:47 160/48 08/03/19 08:00 98.0 58 16 100 2.0 08/01/19 16:17 Nasal Cannula I&O- Last 24 Hours up to 6 AM 08/03/19 06:00 Intake Total 810 ml Output Total 3000 ml Balance -2190 ml Laboratory Data 24H LABS Laboratory Tests 2 08/02/19 11:54: Bedside Glucose (Misc Panel) 120H 08/02/19 16:37: Bedside Glucose (Misc Panel) 315H 08/02/19 21:39: Bedside Glucose (Misc Panel) 215H 08/03/19 05:12: Immature Granulocyte % (Auto) 0.4, White Blood Count 8.0, Red Blood Count 3.08L, Hemoglobin 8.6L, Hematocrit 28.5L, Mean Corpuscular Volume 92.5, Mean Corpuscular Hemoglobin 27.9, Mean Corpuscular Hemoglobin Concent 30.2L, Red Cell Distribution Width 15.1H, Platelet Count 439, Neutrophils (%) (Auto) 69.9H, Lymphocytes (%) (Auto) 19.0L, Monocytes (%) (Auto) 10.1H, Eosinophils (%) (Auto) 0.1, Basophils (%) (Auto) 0.5, Neutrophils # (Auto) 5.6, Lymphocytes # (Auto) 1.5, Monocytes # (Auto) 0.8, Eosinophils # (Auto) 0.0, Basophils # (Auto) 0.0, Nucleated Red Blood Cells % (auto) 0.0, Anion Gap 6L, Glomerular Filtration Rate > 60.0, Blood Urea Nitrogen 11, Creatinine 0.49L, Sodium Level 142, Potassium Level 3.3L, Chloride Level 100, Carbon Dioxide Level 36H, Calcium Level 7.5L, Aspartate Amino Transf (AST/SGOT) 5L, Alanine Aminotransferase (ALT/SGPT) 10L, Alkaline Phosphatase 56, Total Bilirubin 0.2, Total Protein 5.4L, Albumin 2.1L, Magnesium Level 1.6L, JD-Tck-P-Type Natriuretic Peptide 9288H, Albumin/Globulin Ratio 0.64L CBC/BMP Laboratory Tests 08/03/19 05:12 Red Blood Count 3.08 L, Mean Corpuscular Volume 92.5, Mean Corpuscular Hemoglobin 27.9, Mean Corpuscular Hemoglobin Concent 30.2 L, Red Cell Distribution Width 15.1 H, Neutrophils (%) (Auto) 69.9 H, Lymphocytes (%) (Auto) 19.0 L, Monocytes (%) (Auto) 10.1 H, Eosinophils (%) (Auto) 0.1, Basophils (%) (Auto) 0.5, Neutrophils # (Auto) 5.6, Lymphocytes # (Auto) 1.5, Monocytes # (Auto) 0.8, Eosinophils # (Auto) 0.0, Basophils # (Auto) 0.0, Calcium Level 7.5 L, Aspartate Amino Transf (AST/SGOT) 5 L, Alanine Aminotransferase (ALT/SGPT) 10 L, Alkaline Phosphatase 56, Total Bilirubin 0.2, Total Protein 5.4 L, Albumin 2.1 L Microbiology Microbiology 07/31/19 Blood Culture - Preliminary, Resulted No Growth after 48 hours. All Specime... 07/31/19 Blood Culture - Preliminary, Resulted No Growth after 48 hours. All Specime... LAKESHA ANDERSEN MD Aug 03, 2019 09:39
[2019-08-03] MEDS: cefTRIAXone SOD 1 GM in D5W MINI-BAG PLUS 50 ML IV SCH (10:25)
[2019-08-03] MEDS: VALPROIC ACID 250 MG CAP PO SCH ×3 (10:25→21:54)
[2019-08-03 12:00] VITALS: BP 144/71
[2019-08-03] MEDS: LEVALBUTEROL 1.25 MG/0.5 ML CONCENTRATE NEB INH PRN ×2 (13:21→20:13)
[2019-08-03] MEDS: ACETAMINOPHEN TAB 650MG DOSE (2X325MG) PO PRN (15:10)
[2019-08-03 16:00] VITALS: BP 132/65
[2019-08-03] MEDS: FUROSEMIDE 40 MG/4 ML VIAL (J1940) IV SCH (17:37)
[2019-08-03 20:00] VITALS: BP 132/67
--- NOTE | 2019-08-03 20:09 | ECHO ---
DATE OF PROCEDURE: 08/03/2019 REFERRING PHYSICIAN: Vern Gonzalez MD INDICATION: Dyspnea. Height 155 cm, weight 65 kg. DIMENSIONS: IVS: 1.2 LV: 5.2 LVPW: 1.0 LA: 4.0 Aorta: 3.2 IVC: 2.3 Left atrial volume index: 34 Mitral E wave velocity: 117 A wave: 46 E prime septal: 4.8 E prime lateral: 8.7 FINDINGS: The study is of good technical quality. The patient is in sinus rhythm with relatively bradycardic rate and frequent atrial ectopy. Left ventricle is of normal size and globally has preserved systolic function. On some, but not all, views there appears to be small apical wall motion abnormality. Overall ejection fraction (EF) is preserved, and I estimate ejection fraction around 60-65%. Mild LVH is noted. Right ventricle is not enlarged and appears to be normally contractile. Left atrium is moderately enlarged. Right atrium appears normal. Aortic valve is heavily sclerotic. There is restriction of cusp mobility. Based on 2D imaging, I would estimate approximately moderate aortic stenosis. There are degenerative abnormalities of mitral valve with mitral annular calcifications. Mobility of leaflets is preserved. Tricuspid valve appears normal. The pulmonic valve also appears normal. No pericardial effusion is noted. Inferior vena cava is dilated, and there is no appreciable collapse with respiration indicative of likely very high central venous pressure. Aortic root is normal. Aortic arch and abdominal aorta were not well seen. Doppler interrogation of aortic valve reveals no insufficiency and probably mild to moderate stenosis. Peak gradient was only 26 and mean gradient 14. Calculated aortic valve area was 1.0 cm squared, which in my opinion clearly overestimates severity of aortic stenosis. There is mild to moderate or possibly moderate mitral insufficiency likely secondary to degenerative abnormalities of mitral valve. There is mild tricuspid insufficiency. Calculated pulmonary artery pressure is at minimum around 60 mmHg and potentially could be higher because the quality of TR jet was poor. Trace pulmonic insufficiency is noted. Mitral inflow pattern and tissue Doppler of mitral annulus reveals grade 2 diastolic dysfunction. CONCLUSIONS: 1. Study is of good technical quality. 2. Normal left ventricular (LV) size with mild left ventricular hypertrophy (LVH) and overall preserved left ventricle systolic function. Cannot rule out small apical wall motion abnormality. Grade 2 diastolic dysfunction indicative of high left ventricle end-diastolic pressure. 3. Heavily calcified aortic valve with mild or possibly mild to moderate stenosis. 4. Ewkt-[id number]-[id number] mitral insufficiency. 5. Mild tricuspid insufficiency. 6. Very high central venous pressure. 7. At least moderately severe pulmonary hypertension. COMMENT: Subacute bacterial endocarditis (SBE) prophylaxis is not recommended.
--- NOTE | 2019-08-03 20:12 | ECGEPIP ---
[facility] Test Date: 2019-08-03 Pat Name: MARCELINO FOWLER Department: Room: [place] [address] Gender: Female Methods Examiner: RAY : 1945 Requested By: Vahe Zepeda Order Number: [id number] Reading MD: Rolo Ponce Measurements Intervals [place] Rate: 58 P: 72 [place]: 146 QRS: 66 QRSD: 83 T: 120 QT: 503 QTc: 498 Interpretive Statements Sinus bradycardia with PACs Delayed anterior R wave progression Nonspecific ST-T wave abnormalities No significant change when compared to prior tracing of 08/02/2019 Electronically Signed on 08-03-2019 20:11:43 EDT by Rolo Ponce
[2019-08-03] MEDS: **NOTE PATIENT COMMENT** MISC XX SCH (21:54)
[2019-08-04] VITALS (7 sets, daily range): BP systolic 139–156; BP diastolic 65–86
[2019-08-04 06:11] LABS: BASO % 0.3 % (0.0-1.0); HEMATOCRIT 28.3 % (36.0-47.0); HEMOGLOBIN 8.5 g/dl (12.0-15.5); LYMPH # 1.3 10^3/uL (1.5-5.0); LYMPH % 16.7 % (24.0-44.0); MEAN CORPUSCULAR HEMOGLOBIN 28.1 pg (27.0-33.0); MEAN CORPUSCULAR VOLUME 93.4 fl (80.0-96.0); MONO # 0.7 10^3/uL (0.0-0.8); MONO % 9.9 % (0.0-5.0); NEUTROPHILS # 5.4 10^3/uL (1.5-8.5); NEUTROPHILS % 72.7 % (36.0-66.0); PLATELET COUNT, AUTOMATED 458 10^3/uL (150-450); RED BLOOD COUNT 3.03 10^6/uL (4.00-5.40); WHITE BLOOD COUNT 7.5 10^3/uL (4.0-10.0)
[2019-08-04 06:44] LABS: ALBUMIN 2.2 GM/DL (3.2-5.2); ALT/SGPT 10 U/L (12-78); BILIRUBIN,TOTAL 0.2 MG/DL (0.2-1.0); BLOOD UREA NITROGEN 12 MG/DL (7-18); CALCIUM LEVEL 7.9 MG/DL (8.8-10.2); CARBON DIOXIDE LEVEL 34 MEQ/L (21-32); CHLORIDE LEVEL 101 MEQ/L (98-107); CREATININE FOR GFR 0.56 MG/DL (0.55-1.30); GLOMERULAR FILTRATION RATE > 60.0 (>39); GLUCOSE, FASTING 246 MG/DL (70-100); MAGNESIUM LEVEL 1.8 MG/DL (1.8-2.4); NT-PRO BNP 6792 PG/ML (<450); POTASSIUM SERUM 4.1 MEQ/L (3.5-5.1); SODIUM LEVEL 142 MEQ/L (136-145); TOTAL PROTEIN 5.6 GM/DL (6.4-8.2)
--- NOTE | 2019-08-04 08:10 | IPN ---
DATE: 08/04/2019 Mrs. Solano this morning is very sleepy, I had somewhat of a hard time waking her up but when she woke up she was alert and appropriate. She gives me an impression of a really tired and chronically ill woman and she says that she has a hard time moving around and it is still difficult for her to breathe. Even at rest she sometimes feels short of breath. She did not have any paroxysmal nocturnal dyspnea (PND) as such though. Vital signs this morning 143/86, heart rate has been in 60s and 70s, actually last night her beta jamal was held because she was too bradycardic. Saturation was 99% on 2 liters. Her fluid balance yesterday was about 900 mL negative, weight is 61 kg. She is alert and oriented appropriate. I have hard time getting her JVP, it does not appear grossly elevated, but at least somewhat elevated. Lungs are reasonably clear with decreased breath sounds over bases and some occasional mild crackles. At the left axilla there is an audible murmur of mitral insufficiency, which I did not appreciate yesterday, probably due to different positioning of the patient. Abdomen is soft and nontender. Extremities have trace edema. LABORATORIES: Basic metabolic panel is normal with the exception of glucose 246, N terminal proBNP is 7800. Albumin is 2.2 and hemoglobin is 8.5, hematocrit 28, platelet count 458,000. Echocardiogram yesterday revealed preserved left ventricular systolic function with possibly very small apical wall motion abnormality with mild aortic stenosis but at least moderate and possibly even worse mitral insufficiency. There was high CVP and at least moderate or moderately severe pulmonary hypertension. ASSESSMENT/PLAN: Mrs. Solano is a 74-year lady who has a multitude of medical problems. She presented with SVT that responded to adenosine, but there is a second issue she has congestive heart failure that is diastolic in nature (so-called heart failure with preserved ejection fraction). She is still volume overloaded and I think it is appropriate to continue diuresis. As far as the SVT is concerned, I would leave her on metoprolol for the time being. If only I am afraid to use long-acting calcium channel blockers as the heart rate tends to be bradycardic at times. Finally, I am concerned about slowly dropping hemoglobin. It is unclear to me why that should be the case, she is not on any anticoagulation. Iron studies I think should be performed. I am little worried about her prognosis. She does not seem to be improving. Her oral intake is poor and she has resigned appearance. Nevertheless, will continue aggressive diuresis and further management. As far as the mitral insufficiency is concerned, I certainly do not think that she is a candidate for surgical intervention so I do not believe there is a clear-cut indication for ELISABETH to look at the MR severity. GWEN
[2019-08-04] MEDS: FLUTICASONE PROP 0.05% NASAL SPRAY 16 GM (FLONASE) NARES SCH (08:18)
[2019-08-04] MEDS: LIDOCAINE 5% (LIDODERM) PATCH TOP SCH (08:19)
[2019-08-04] MEDS: ENOXAPARIN 40 MG/0.4 ML SYRINGE (J1650) SC SCH (08:19)
[2019-08-04] MEDS: NICOTINE 7 MG/24 HR TRANSDERMAL TD SCH ×2 (08:19→22:36)
[2019-08-04] MEDS: FUROSEMIDE 40 MG/4 ML VIAL (J1940) IV SCH ×2 (08:19→17:25)
[2019-08-04] MEDS: GABAPENTIN 100 MG CAP PO SCH ×3 (08:20→22:34)
[2019-08-04] MEDS: HumaLOG INSULIN (NovoLOG) PER UNIT SC SCH ×4 (08:20→21:00)
[2019-08-04] MEDS: PANTOPRAZOLE 40MG TAB (PROTONIX) PO SCH (08:20)
[2019-08-04] MEDS: METOPROLOL TART 25 MG TABLET PO SCH ×3 (08:20→22:35)
[2019-08-04] MEDS: SPIRONOLACTONE 25 MG TAB PO SCH (08:20)
[2019-08-04] MEDS: MAGNESIUM OXIDE 400 MG TAB (MAG-OX) PO SCH (08:21)
[2019-08-04] MEDS: VALPROIC ACID 250 MG CAP PO SCH ×3 (08:21→22:34)
[2019-08-04] MEDS: predniSONE 10 MG TAB PO SCH (08:21)
[2019-08-04] MEDS: FLUDROCORTISONE ACETATE 0.1 MG TAB PO SCH (08:21)
[2019-08-04] MEDS: busPIRone 5 MG TAB PO SCH ×2 (08:21→22:34)
[2019-08-04] MEDS: ASPIRIN 81 MG ENTERIC TAB PO SCH (08:22)
[2019-08-04] MEDS: HYDROCORTISONE 10 MG TAB PO SCH ×2 (08:22→22:34)
[2019-08-04] MEDS: VITAMIN D 1,000 INTERNATIONAL UNITS TABLET PO SCH (08:22)
[2019-08-04] MEDS: ADVAIR HFA 230/21MCG INHALER INH SCH ×2 (08:22→19:51)
[2019-08-04] MEDS: cefTRIAXone SOD 1 GM in D5W MINI-BAG PLUS 50 ML IV SCH (10:07)
--- NOTE | 2019-08-04 10:36 | IPNPDOC ---
Text Note Date of Service The patient was seen on 08/04/19. NOTE Subjective: Patient is a 74-year-old female with PMhx of Recurrent SVT, HTN, Diastolic CHF, CAD, NIDDM2, COPD, Seizures who presented to the ER with shor tness of breath and chest tightness. In emergency room, patient was found to have SVT and was admitted to hospitalist service for further evaluation and treatment. Cardiology was called on consultation. Patient was seen and examined at the bedside. Patient reports that she still slightly short of breath. She denies any cough. She denies chest pain, abdominal pain, diarrhea, or urinary discomfort. Objective: Vitals (See below) General: Lying in bed, no acute distress, comfortable, AAOx3 HEENT: NC, AT CVS: +S1S2 Lungs: Fair air entry b/l, -w/r/r Abdomen: Soft, ND, NT Extremities: 2+ pitting edema bilaterally, - Calf tenderness Assessment and plan: SVT - likely 2/2 hypomagnesemia - possible 2/2 pneumonia - Currently, patient is feeling significantly better - Has not experience any further episodes of SVT - ECHO 08/03: 1. Study is of good technical quality. 2. Normal left ventricular (LV) size with mild left ventricular hypertrophy (LVH) and overall preserved left ventricle systolic function. Cannot rule out small apical wall motion abnormality. Grade 2 diastolic dysfunction indicative of high left ventricle end-diastolic pressure. 3. Heavily calcified aortic valve with mild or possibly mild to moderate stenosis. 4. Lqtw-sr-odfyxtxe mitral insufficiency. 5. Mild tricuspid insufficiency. 6. Very high central venous pressure. 7. At least moderately severe pulmonary hypertension. - c/w Metoprolol tartrate 25 Tid - Cardiology is on consultation; we appreciate their input Pneumonia - Clinically improving - Blood cultures 07/31: Negative at 72 hours - CXR 08/02: Cardiomegaly with vascular congestion and diffuse interstitial prominence. Slight increase in bibasilar infiltrates and effusions. Findings suggest CHF and pulmonary edema. - c/w Ceftriaxone s/p Hypomagnesemia - c/w daily supplementation Chronic obstructive pulmonary disease - no evidence of exacerbation - c/w inhaled therapy as ordered - c/w Prednisone and Hydrocortisone Diastolic CHF - Patient appears to have signs of fluid overload - Patient has been negative - Continue with diuresis with furosemide / and spironolactone - Cardiology is on consultation HTN - c/w Metoprolol / Furosemide / Spironolactone CAD - c/w Metoprolol tartrate, NIDDM2 - c/w ISS Mood disorder - c/w Buspirone Neuropathy - c/w Gabapentin Seizures - c/w Valproic acid GI prophylaxis - c/w Protonix DVT prophylaxis - c/w Lovenox Disposition: - Patient will need to be transitioned back to subacute rehabilitation VS,Fishbone, I+O VS, Fishbone, I+O Laboratory Tests 08/04/19 05:20 Red Blood Count 3.03 L, Mean Corpuscular Volume 93.4, Mean Corpuscular Hemoglobin 28.1, Mean Corpuscular Hemoglobin Concent 30.0 L, Red Cell Distribution Width 15.2 H, Neutrophils (%) (Auto) 72.7 H, Lymphocytes (%) (Auto) 16.7 L, Monocytes (%) (Auto) 9.9 H, Eosinophils (%) (Auto) 0.0, Basophils (%) (Auto) 0.3, Neutrophils # (Auto) 5.4, Lymphocytes # (Auto) 1.3 L, Monocytes # (Auto) 0.7, Eosinophils # (Auto) 0.0, Basophils # (Auto) 0.0, Calcium Level 7.9 L, Aspartate Amino Transf (AST/SGOT) < 3 L, Alanine Aminotransferase (ALT/SGPT) 10 L, Alkaline Phosphatase 54, Total Bilirubin 0.2, Total Protein 5.6 L, Albumin 2.2 L Vital Signs Date Time Temp Pulse Resp B/P (MAP) Pulse Ox O2 Delivery O2 Flow Rate FiO2 08/04/19 08:20 130/84 08/04/19 08:00 96.4 71 18 100 3.0 08/01/19 16:17 Nasal Cannula I&O- Last 24 Hours up to 6 AM 08/04/19 06:00 Intake Total 1260 ml Output Total 1200 ml Balance 60 ml SALVADOR LANGFORD MD Aug 04, 2019 10:36
[2019-08-04] MEDS: LEVALBUTEROL 1.25 MG/0.5 ML CONCENTRATE NEB INH PRN (19:51)
[2019-08-04] MEDS: **NOTE PATIENT COMMENT** MISC XX SCH (21:00)
[2019-08-04] MEDS: ACETAMINOPHEN TAB 650MG DOSE (2X325MG) PO PRN (23:16)
[2019-08-05 04:00] VITALS: BP 151/59
[2019-08-05] MEDS: ACETAMINOPHEN TAB 650MG DOSE (2X325MG) PO PRN ×2 (05:47→21:59)
[2019-08-05 07:00] VITALS: BP 151/76
--- NOTE | 2019-08-05 07:18 | IPN ---
DATE: 08/05/2019 Ms. Solano had a relatively uneventful day yesterday. There were no specific events. This morning, she is rather sleepy, but does not appreciate any significant change. She still continues to be rather short of breath. Vital Signs: Blood pressure 151/59, heart rate has been in 60s. She is saturating 90% on 3 liters of oxygen. The fluid balance was recorded as negative a liter yesterday. Weight is down to 57 kg, which I am really skeptical if this represents too much of a change since yesterday. Her jugular venous pulse (JVP) is still mildly elevated. Lungs are fairly clear even though she still has minimal crackles over bases. Heart exam reveals a regular rhythm with murmur of mitral insufficiency best heard in the axilla. She does not have hardly any peripheral edema, even though still some residual trace is present. LABORATORY DATA: Still pending. ASSESSMENT/PLAN: Ms. Solano is a 74-year only lady who presented with sustained supraventricular tachycardia (SVT) that was terminated by adenosine. As a complicating factor, she was also found to be in congestive heart failure. Echocardiogram reveals preserved left ventricular systolic function, but significant at least moderate and potentially even severe mitral insufficiency is present. At this point, I think the focus remains on volume control. She seems to be diuresing successfully and I would continue current medications. I hope that by the end of this week she will be ready for her for discharge from heart failure perspective. As far as the SVT is concerned, it occurred in spite of her taking a total 75 mg of metoprolol daily. She previously prior to her spinal surgery was on Cardizem CD a total of 360 mg, which led to reasonable control, but unfortunately in this setting I am reluctant to make the transition as the patient seems to be rather bradycardic. MTDD
[2019-08-05] MEDS: ADVAIR HFA 230/21MCG INHALER INH SCH ×2 (08:34→20:50)
[2019-08-05 09:23] LABS: BASO % 0.5 % (0.0-1.0); EOS % 0.5 % (0.0-3.0); HEMATOCRIT 31.6 % (36.0-47.0); HEMOGLOBIN 9.6 g/dl (12.0-15.5); LYMPH # 2.4 10^3/uL (1.5-5.0); MEAN CORPUSCULAR HGB CONC 30.4 g/dl (32.0-36.5); MEAN CORPUSCULAR VOLUME 88.8 fl (80.0-96.0); MONO # 1.1 10^3/uL (0.0-0.8); MONO % 13.7 % (0.0-5.0); NEUTROPHILS # 4.2 10^3/uL (1.5-8.5); NEUTROPHILS % 54.2 % (36.0-66.0); PLATELET COUNT, AUTOMATED 482 10^3/uL (150-450); RED BLOOD COUNT 3.56 10^6/uL (4.00-5.40); WHITE BLOOD COUNT 7.7 10^3/uL (4.0-10.0)
[2019-08-05] MEDS: cefTRIAXone SOD 1 GM in D5W MINI-BAG PLUS 50 ML IV SCH (09:24)
[2019-08-05] MEDS: HumaLOG INSULIN (NovoLOG) PER UNIT SC SCH ×4 (09:25→21:58)
[2019-08-05] MEDS: ENOXAPARIN 40 MG/0.4 ML SYRINGE (J1650) SC SCH (09:25)
[2019-08-05] MEDS: FUROSEMIDE 40 MG/4 ML VIAL (J1940) IV SCH ×2 (09:25→16:33)
[2019-08-05] MEDS: PANTOPRAZOLE 40MG TAB (PROTONIX) PO SCH (09:26)
[2019-08-05] MEDS: predniSONE 10 MG TAB PO SCH (09:26)
[2019-08-05] MEDS: MAGNESIUM OXIDE 400 MG TAB (MAG-OX) PO SCH (09:26)
[2019-08-05] MEDS: ASPIRIN 81 MG ENTERIC TAB PO SCH (09:26)
[2019-08-05] MEDS: VITAMIN D 1,000 INTERNATIONAL UNITS TABLET PO SCH (09:26)
[2019-08-05] MEDS: busPIRone 5 MG TAB PO SCH ×2 (09:26→21:59)
[2019-08-05] MEDS: METOPROLOL TART 25 MG TABLET PO SCH ×3 (09:26→22:10)
[2019-08-05] MEDS: GABAPENTIN 100 MG CAP PO SCH ×3 (09:26→21:59)
[2019-08-05] MEDS: VALPROIC ACID 250 MG CAP PO SCH ×3 (09:27→21:59)
[2019-08-05] MEDS: NICOTINE 7 MG/24 HR TRANSDERMAL TD SCH ×2 (09:27→21:59)
[2019-08-05] MEDS: FLUDROCORTISONE ACETATE 0.1 MG TAB PO SCH (09:27)
[2019-08-05] MEDS: HYDROCORTISONE 10 MG TAB PO SCH ×2 (09:27→21:59)
[2019-08-05] MEDS: FLUTICASONE PROP 0.05% NASAL SPRAY 16 GM (FLONASE) NARES SCH (09:27)
[2019-08-05] MEDS: SPIRONOLACTONE 25 MG TAB PO SCH (09:27)
[2019-08-05] MEDS: LIDOCAINE 5% (LIDODERM) PATCH TOP SCH (09:28)
[2019-08-05 09:51] LABS: MAGNESIUM LEVEL 1.6 MG/DL (1.8-2.4)
--- NOTE | 2019-08-05 11:04 | IPNPDOC ---
Text Note Date of Service The patient was seen on 08/05/19. NOTE Subjective: Patient is a 74-year-old female with PMhx of Recurrent SVT, HTN, Diastolic CHF, CAD, NIDDM2, COPD, Seizures who presented to the ER with shor tness of breath and chest tightness. In emergency room, patient was found to have SVT and was admitted to hospitalist service for further evaluation and treatment. Cardiology was called on consultation. Patient was seen and examined at the bedside. Patient reports that subjectively her breathing has improved. She still notes that she has lower extremity swelling. She denies any chest pain or palpitations. Denies any nausea, vomiting, abdominal pain. Objective: Vitals (See below) General: Lying in bed, no acute distress, comfortable, AAOx3 HEENT: NC, AT CVS: +S1S2 Lungs: Air entry remains fair bilaterally without evidence of rhonchi, rales or wheezing Abdomen: Soft, nondistended and nontender Extremities: Persistent bilateral 2+ pitting edema, - Calf tenderness Assessment and plan: Acute decompensated diastolic CHF - Patient continues to show signs of fluid overload - Patient has been negative fluid balance - c/w diuresis with furosemide and spironolactone - Cardiology is on consultation SVT - likely 2/2 hypomagnesemia - possible 2/2 pneumonia - Currently, patient is feeling significantly better - Has not experience any further episodes of SVT - ECHO 08/03: 1. Study is of good technical quality. 2. Normal left ventricular (LV) size with mild left ventricular hypertrophy (LVH) and overall preserved left ventricle systolic function. Cannot rule out small apical wall motion abnormality. Grade 2 diastolic dysfunction indicative of high left ventricle end-diastolic pressure. 3. Heavily calcified aortic valve with mild or possibly mild to moderate stenosis. 4. Ybat-co-oqkkulsm mitral insufficiency. 5. Mild tricuspid insufficiency. 6. Very high central venous pressure. 7. At least moderately severe pulmonary hypertension. - c/w Metoprolol tartrate 25 TID - Cardiology is on consultation; we appreciate their input Pneumonia - Clinically improving - Blood cultures 07/31: Negative at 72 hours - CXR 08/02: Cardiomegaly with vascular congestion and diffuse interstitial prominence. Slight increase in bibasilar infiltrates and effusions. Findings suggest CHF and pulmonary edema. - c/w Ceftriaxone (Day #5) s/p Hypomagnesemia - c/w daily supplementation Chronic obstructive pulmonary disease - no evidence of exacerbation - c/w inhaled therapy as ordered - c/w Prednisone and Hydrocortisone HTN - c/w Metoprolol / Furosemide / Spironolactone CAD - c/w Metoprolol tartrate NIDDM2 - c/w ISS Mood disorder - c/w Buspirone Neuropathy - c/w Gabapentin Seizures - c/w Valproic acid GI prophylaxis - c/w Protonix DVT prophylaxis - c/w Lovenox Disposition: - Patient will need to be transitioned back to subacute rehabilitation at [facility] - Awaiting patient to become euvolemic VS,Fishbone, I+O VS, Fishbone, I+O Laboratory Tests 08/05/19 09:10 Red Blood Count 3.56 L, Mean Corpuscular Volume 88.8, Mean Corpuscular Hemoglobin 27.0, Mean Corpuscular Hemoglobin Concent 30.4 L, Red Cell Distribution Width 14.9 H, Neutrophils (%) (Auto) 54.2, Lymphocytes (%) (Auto) 31.0, Monocytes (%) (Auto) 13.7 H, Eosinophils (%) (Auto) 0.5, Basophils (%) (Auto) 0.5, Neutrophils # (Auto) 4.2, Lymphocytes # (Auto) 2.4, Monocytes # (Auto) 1.1 H, Eosinophils # (Auto) 0.0, Basophils # (Auto) 0.0 Vital Signs Date Time Temp Pulse Resp B/P (MAP) Pulse Ox O2 Delivery O2 Flow Rate FiO2 08/05/19 09:26 70 151/76 08/05/19 08:00 2.0 08/05/19 07:00 97.5 16 98 08/01/19 16:17 Nasal Cannula I&O- Last 24 Hours up to 6 AM 08/05/19 06:00 Intake Total 990 ml Output Total 2150 ml Balance -1160 ml SALVADOR LANGFORD MD Aug 05, 2019 11:04
[2019-08-05 12:00] VITALS: BP_SYST 124; BP_DIAS 28; BP_DIAS 58
[2019-08-05 16:00] VITALS: BP 118/58
[2019-08-05] MEDS ORDERED: SLF 3 ML SYR IV PRN (16:45)
[2019-08-05 20:00] VITALS: BP 124/58
[2019-08-05] MEDS: **NOTE PATIENT COMMENT** MISC XX SCH (21:00)
[2019-08-05 22:00] VITALS: BP 121/67
[2019-08-05] MEDS: SLF 3 ML SYR IV SCH (22:03)
[2019-08-06] VITALS (8 sets, daily range): BP systolic 94–156; BP diastolic 49–71
[2019-08-06] MEDS: SLF 3 ML SYR IV SCH ×3 (06:10→21:09)
[2019-08-06 06:52] LABS: BLOOD UREA NITROGEN 18 MG/DL (7-18); CALCIUM LEVEL 7.4 MG/DL (8.8-10.2); CARBON DIOXIDE LEVEL 37 MEQ/L (21-32); CHLORIDE LEVEL 96 MEQ/L (98-107); CREATININE FOR GFR 0.56 MG/DL (0.55-1.30); GLOMERULAR FILTRATION RATE > 60.0 (>39); GLUCOSE, FASTING 164 MG/DL (70-100); POTASSIUM SERUM 3.3 MEQ/L (3.5-5.1); SODIUM LEVEL 139 MEQ/L (136-145)
[2019-08-06 07:00] LABS: HEMATOCRIT 29.3 % (36.0-47.0); HEMOGLOBIN 9.1 g/dl (12.0-15.5); MEAN CORPUSCULAR HEMOGLOBIN 27.4 pg (27.0-33.0); MEAN CORPUSCULAR HGB CONC 31.1 g/dl (32.0-36.5); MEAN CORPUSCULAR VOLUME 88.3 fl (80.0-96.0); PLATELET COUNT, AUTOMATED 453 10^3/uL (150-450); RED BLOOD COUNT 3.32 10^6/uL (4.00-5.40); WHITE BLOOD COUNT 7.5 10^3/uL (4.0-10.0)
[2019-08-06] MEDS ORDERED: POTASSIUM CHLORIDE 10 MEQ SR TABLET PO ONE (07:15)
[2019-08-06] MEDS: ADVAIR HFA 230/21MCG INHALER INH SCH ×2 (07:42→21:01)
--- NOTE | 2019-08-06 08:46 | IPN ---
DATE: 08/06/2019 Mrs. Solano tells me that she is feeling much better today. She is a lot more awake this morning than yesterday when I saw her in the morning. She says that she slept well. She was able to do rehab and her breathing is much improved. On physical exam, her vital signs reveal blood pressure 144/65, but it is the highest reading, usually they are lower than that. Heart rate 60-70s. She is afebrile. Saturation 97% room air. Weight is documented 61.4 kg, which is way up since yesterday, but yesterday was probably very inaccurate. It is actually not that much different compared to admission. She is alert and oriented and appropriate. Her jugular venous pulse (JVP) does not look elevated today. Lungs are clear. Somewhat diminished breath sounds over left base, but I think it is due to poor inspiratory effort. I do not appreciate any crackles, wheezing. Heart exam reveals regular rhythm. Today the murmur in the axilla is very prominent, I would say 3-4/6 intensity. Abdomen is soft, nontender. There is no peripheral edema. She has elastic stockings on. Neurologically, she is intact. LABORATORIES: Basic metabolic panel: Sodium 139, potassium 3.3, BUN is 18, creatinine 0.6, glucose 164. CBC: Hemoglobin 9.1, hematocrit 29, platelet count 453,000. ASSESSMENT AND PLAN: Mrs. Solano is a 74-year female who came with supraventricular tachycardia (SVT) that was terminated with adenosine. She was simultaneously found to be in systolic heart failure, which is diastolic in nature. Based on echocardiogram she has preserved LV systolic function, but fortunately, she also has significant mitral insufficiency at least moderate and possibly even severe. The whole amount of intervention for heart failure was diuresis. She is still receiving furosemide intravenously and starting to be a little hypokalemic in spite of receiving spironolactone. I am going to double the dose of spironolactone, and I believe that she will be ready for discharge either later today or tomorrow. I think that she is probably getting as euvolemic as we can accomplish. In the long run, sodium restriction and frequent monitoring will be necessary. The second issue is SVT. She has not had any recurrence since she came to the hospital even though she had few bouts of nonsustained ventricular tachycardia. Considering this fact, I would prefer to continue metoprolol rather than switching her to Cardizem. If she should have additional episodes of SVT, we will have to use antiarrhythmics. I will see her in followup in about 2-3 weeks. Otherwise, I think she will be ready for discharge tomorrow. I would suggest that she is discharged on 40 mg of furosemide by mouth once a day.
[2019-08-06] MEDS: busPIRone 5 MG TAB PO SCH ×2 (09:18→21:07)
[2019-08-06] MEDS: ASPIRIN 81 MG ENTERIC TAB PO SCH (09:18)
[2019-08-06] MEDS: predniSONE 10 MG TAB PO SCH (09:19)
[2019-08-06] MEDS: HYDROCORTISONE 10 MG TAB PO SCH ×2 (09:19→21:07)
[2019-08-06] MEDS: GABAPENTIN 100 MG CAP PO SCH ×3 (09:19→21:08)
[2019-08-06] MEDS: FLUDROCORTISONE ACETATE 0.1 MG TAB PO SCH (09:20)
[2019-08-06] MEDS: MAGNESIUM OXIDE 400 MG TAB (MAG-OX) PO SCH (09:20)
[2019-08-06] MEDS: FUROSEMIDE 40 MG/4 ML VIAL (J1940) IV SCH ×2 (09:20→17:24)
[2019-08-06] MEDS: METOPROLOL TART 25 MG TABLET PO SCH ×2 (09:20→21:31)
[2019-08-06] MEDS: PANTOPRAZOLE 40MG TAB (PROTONIX) PO SCH (09:20)
[2019-08-06] MEDS: ENOXAPARIN 40 MG/0.4 ML SYRINGE (J1650) SC SCH (09:21)
[2019-08-06] MEDS: HumaLOG INSULIN (NovoLOG) PER UNIT SC SCH ×4 (09:22→21:29)
[2019-08-06] MEDS: NICOTINE 7 MG/24 HR TRANSDERMAL TD SCH ×2 (09:23→21:09)
[2019-08-06] MEDS: FLUTICASONE PROP 0.05% NASAL SPRAY 16 GM (FLONASE) NARES SCH (09:23)
[2019-08-06] MEDS: VITAMIN D 1,000 INTERNATIONAL UNITS TABLET PO SCH (09:28)
[2019-08-06] MEDS: VALPROIC ACID 250 MG CAP PO SCH ×3 (09:28→21:08)
[2019-08-06] MEDS: SPIRONOLACTONE 25 MG TAB PO SCH ×2 (09:29→17:24)
[2019-08-06] MEDS: LIDOCAINE 5% (LIDODERM) PATCH TOP SCH (09:49)
[2019-08-06] MEDS: cefTRIAXone SOD 1 GM in D5W MINI-BAG PLUS 50 ML IV SCH (09:50)
--- NOTE | 2019-08-06 10:09 | IPNPDOC ---
Text Note Date of Service The patient was seen on 08/06/19. NOTE Subjective: Patient is a 74-year-old female with PMhx of Recurrent SVT, HTN, Diastolic CHF, CAD, NIDDM2, COPD, Seizures who presented to the ER with shor tness of breath and chest tightness. In emergency room, patient was found to have SVT and was admitted to hospitalist service for further evaluation and treatment. Cardiology was called on consultation. Patient was seen and examined at the bedside. , Currently patient is seen this morning without any supplemental oxygen. She reports her breathing is doing better. She denies chest pain or palpitations. Denies any nausea, vomiting, abdominal pain or diarrhea. Objective: Vitals (See below) General: Lying in bed, no acute distress, comfortable, AAOx3 HEENT: NC, AT CVS: +S1S2 Lungs: Air entry remains fair bilaterally without evidence of rhonchi, rales or wheezing Abdomen: Soft, nondistended and nontender Extremities: Persistent bilateral 2+ pitting edema, - Calf tenderness Assessment and plan: Acute decompensated diastolic CHF - Patient continues to show signs of fluid overload , however, has been taken off of supplemental oxygen and is tolerating room air well - Patient has been negative fluid balance - c/w diuresis with furosemide 40 IV BID and increased dose of spironolactone - Cardiology is on consultation; plan for discharge tomorrow back to [facility] with furosemide 40 PO daily SVT - likely 2/2 hypomagnesemia - possible 2/2 pneumonia - Currently, patient is feeling significantly better - Has not experience any further episodes of SVT - ECHO 08/03: 1. Study is of good technical quality. 2. Normal left ventricular (LV) size with mild left ventricular hypertrophy (LVH) and overall preserved left ventricle systolic function. Cannot rule out small apical wall motion abnormality. Grade 2 diastolic dysfunction indicative of high left ventricle end-diastolic pressure. 3. Heavily calcified aortic valve with mild or possibly mild to moderate stenosis. 4. Bdsv-fy-diaqecrx mitral insufficiency. 5. Mild t ricuspid insufficiency. 6. Very high central venous pressure. 7. At least moderately severe pulmonary hypertension. - c/w Metoprolol tartrate 25 TID - Cardiology is on consultation; we appreciate their input Pneumonia - Clinically improving - Blood cultures 07/31: Negative at 72 hours - CXR 08/02: Cardiomegaly with vascular congestion and diffuse interstitial prominence. Slight increase in bibasilar infiltrates and effusions. Findings suggest CHF and pulmonary edema. - c/w Ceftriaxone (Day #6); Will complete 10 day course s/p Hypomagnesemia - c/w daily supplementation Chronic obstructive pulmonary disease - no evidence of exacerbation - c/w inhaled therapy as ordered - c/w Prednisone and Hydrocortisone HTN - c/w Metoprolol / Furosemide / Spironolactone CAD - c/w Metoprolol tartrate NIDDM2 - c/w ISS Mood disorder - c/w Buspirone Neuropathy - c/w Gabapentin Seizures - c/w Valproic acid GI prophylaxis - c/w Protonix DVT prophylaxis - c/w Lovenox Disposition: - Patient will need to be transitioned back to subacute rehabilitation at [facility] tomorrow - Will c/w IV diuresis today and transition to oral diuretics tomorrow VS,Fishbone, I+O VS, Fishbone, I+O Laboratory Tests 08/06/19 05:37 Calcium Level 7.4 L 08/06/19 06:49 Red Blood Count 3.32 L, Mean Corpuscular Volume 88.3, Mean Corpuscular Hemoglobin 27.4, Mean Corpuscular Hemoglobin Concent 31.1 L, Red Cell Distribution Width 14.7 H Vital Signs Date Time Temp Pulse Resp B/P (MAP) Pulse Ox O2 Delivery O2 Flow Rate FiO2 08/06/19 09:20 69 156/66 08/06/19 08:00 96.8 18 94 08/05/19 12:00 3.0 08/01/19 16:17 Nasal Cannula I&O- Last 24 Hours up to 6 AM 08/06/19 06:00 Intake Total 705 ml Output Total 1675 ml Balance -970 ml SALVADOR LANGFORD MD Aug 06, 2019 10:09
[2019-08-06] MEDS ORDERED: ADENOSINE 6MG/2ML INJECTION (J0153) IV STA ×2 (10:43→11:14)
[2019-08-06] MEDS ORDERED: AMIODARONE 200 MG TAB (PACERONE) PO ONE (12:00)
[2019-08-06] MEDS: MAG SULF 1GM/100ML (MAG RUN) 1 GM in APPROPRIATE DILUENT 1 EA IV SCH ×2 (12:03→12:57)
[2019-08-06 12:07] LABS: CK-MB VALUE MASS < 1.0 NG/ML (<3.6); CPK CREATINE PHOSPHOKINASE 18 U/L (26-192); MAGNESIUM LEVEL 1.5 MG/DL (1.8-2.4); MB/CK RELATIVE INDEX 5.56 (< OR =4); TROPONIN I < 0.02 NG/ML (< 0.10)
[2019-08-06 16:31] LABS: CALCIUM LEVEL 7.3 MG/DL (8.8-10.2); GLOMERULAR FILTRATION RATE 57.5 (>39); POTASSIUM SERUM 3.5 MEQ/L (3.5-5.1)
[2019-08-06] MEDS: ACETAMINOPHEN TAB 650MG DOSE (2X325MG) PO PRN ×2 (17:43→22:01)
[2019-08-06] MEDS: **NOTE PATIENT COMMENT** MISC XX SCH (21:00)
[2019-08-06] MEDS: CEFDINIR 300 MG CAP (OMNICEF) PO SCH (21:07)
[2019-08-06] MEDS: AMIODARONE 200 MG TAB (PACERONE) PO SCH (21:08)
--- NOTE | 2019-08-06 21:15 | ECGEPIP ---
[facility] Test Date: 2019-08-06 Pat Name: MARCELINO FOWLER Department: Room: [place] [address] Gender: Female Assistant Manager: ERICKA : 1945 Requested By: SALVADOR LANGFORD Order Number: [id number] Reading MD: Rolo Ponce Measurements Intervals Fellows Rate: 89 P: ID: 0 QRS: -3 QRSD: 83 T: 158 QT: 416 QTc: 507 Interpretive Statements Atrial fibrillation with controlled ventricular response Delayed anterior R wave progression Nonspecific ST-T wave abnormalities No significant change when compared to prior tracing of 08/03/2019 Electronically Signed on 08-06-2019 21:14:49 EDT by Rolo Ponce
--- NOTE | 2019-08-06 21:15 | ECGEPIP ---
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
[2019-08-07 00:02] VITALS: BP 137/66
[2019-08-07 04:21] VITALS: BP 144/68
[2019-08-07] MEDS: SLF 3 ML SYR IV SCH (04:32)
[2019-08-07 06:05] LABS: BLOOD UREA NITROGEN 20 MG/DL (7-18); CALCIUM LEVEL 7.5 MG/DL (8.8-10.2); CARBON DIOXIDE LEVEL 35 MEQ/L (21-32); CHLORIDE LEVEL 99 MEQ/L (98-107); CREATININE FOR GFR 0.64 MG/DL (0.55-1.30); GLOMERULAR FILTRATION RATE > 60.0 (>39); GLUCOSE, FASTING 201 MG/DL (70-100); POTASSIUM SERUM 3.6 MEQ/L (3.5-5.1); SODIUM LEVEL 140 MEQ/L (136-145)
--- NOTE | 2019-08-07 07:42 | IPN ---
DATE OF SERVICE: 08/07/2019 Mrs. Lux had another run of sustained supraventricular tachycardia yesterday morning. It was promptly terminated by single 6 mg dose of adenosine. She has been maintaining sinus rhythm since with occasional PVC. She tells me that she is feeling better. Her breathing has definitely improved and she is somewhat startled by another run of SVT that occurred while she was in the hospital. Denies any chest discomfort. Vital signs: Blood pressure 144/68, heart rate has been in 60s and 70s. She is sinus rhythm. She is afebrile. Saturation is 96%. Weight has been documented 55.8 which I am somewhat skeptic of. She is alert and oriented, appropriate. Her JVP is no longer elevated. Lungs still reveals some fine end inspiratory crackles mostly over left base. I do not appreciate any wheezing or stridor. Heart: Exam reveals regular rhythm. There is still very prominent murmur consistent with mitral insufficiency. Abdomen is soft, nontender. No peripheral edema. Neurologically she is intact. LABORATORY: Basic metabolic panel is normal. Glucose is 201, magnesium was 2.0 yesterday afternoon after supplementation. CBC reveals hemoglobin 9.1, hematocrit 29.3 and platelet count 453,000. ASSESSMENT/PLAN: Mrs. Solano is a 74-year female who comes with recurrent SVT. She was already on metoprolol 25 mg three times a day. She previously was on Cardizem and did not have any episodes during Cardizem administration but considering frequency, I am afraid that it would not be sufficient for preventing further episodes. On top of it, she had several episodes of nonsustained VT during this hospitalization and consequently I chose amiodarone as the antiarrhythmic of choice. She was given 400 mg yesterday and I would continue 400 mg daily for next about 2 weeks after which it can be reduced to maintenance dose. I am almost certain that she has underlying coronary artery disease but so far we have not been able to proceed with any adequate evaluation in this regard due to her anxiety and claustrophobia. The second issue was that of diastolic congestive heart failure. She now seems to be euvolemic and I believe she can be discharged back to rehabilitation. I would like the attending physician or mid-level provider in the rehab to be informed about what transpired during this hospitalization. I would consider it useful if they monitor her heart rate for foreseeable future because the dose of AV channing blocking agent and amiodarone may need to be adjusted accordingly. I tentatively plan to see in about 2-3 weeks. MTDD
[2019-08-07] MEDS: ADVAIR HFA 230/21MCG INHALER INH SCH (07:47)
[2019-08-07 08:00] VITALS: BP 167/70
[2019-08-07] MEDS ORDERED: SPIR-10 PO (08:21)
[2019-08-07] MEDS ORDERED: FURO40TA2 PO (08:21)
[2019-08-07] MEDS ORDERED: AMIO200T PO (08:21)
[2019-08-07] MEDS ORDERED: METO25TA4 PO (08:21)
[2019-08-07] MEDS ORDERED: CEFD300CAP PO (08:21)
[2019-08-07] MEDS: NICOTINE 7 MG/24 HR TRANSDERMAL TD SCH (09:32)
[2019-08-07] MEDS: HYDROCORTISONE 10 MG TAB PO SCH (09:32)
[2019-08-07] MEDS: ASPIRIN 81 MG ENTERIC TAB PO SCH (09:32)
[2019-08-07] MEDS: busPIRone 5 MG TAB PO SCH (09:32)
[2019-08-07] MEDS: VITAMIN D 1,000 INTERNATIONAL UNITS TABLET PO SCH (09:32)
[2019-08-07] MEDS: CEFDINIR 300 MG CAP (OMNICEF) PO SCH (09:32)
[2019-08-07] MEDS: AMIODARONE 200 MG TAB (PACERONE) PO SCH (09:33)
[2019-08-07] MEDS: VALPROIC ACID 250 MG CAP PO SCH (09:33)
[2019-08-07] MEDS: predniSONE 10 MG TAB PO SCH (09:33)
[2019-08-07] MEDS: FLUDROCORTISONE ACETATE 0.1 MG TAB PO SCH (09:33)
[2019-08-07] MEDS: PANTOPRAZOLE 40MG TAB (PROTONIX) PO SCH (09:33)
[2019-08-07 09:35] VITALS: BP 167/70
[2019-08-07] MEDS: GABAPENTIN 100 MG CAP PO SCH (09:35)
[2019-08-07] MEDS: METOPROLOL TART 25 MG TABLET PO SCH (09:35)
[2019-08-07] MEDS: ENOXAPARIN 40 MG/0.4 ML SYRINGE (J1650) SC SCH (09:35)
[2019-08-07] MEDS: SPIRONOLACTONE 25 MG TAB PO SCH (09:35)
[2019-08-07] MEDS: MAGNESIUM OXIDE 400 MG TAB (MAG-OX) PO SCH (09:35)
[2019-08-07] MEDS: FLUTICASONE PROP 0.05% NASAL SPRAY 16 GM (FLONASE) NARES SCH (09:36)
[2019-08-07] MEDS: LIDOCAINE 5% (LIDODERM) PATCH TOP SCH (09:36)
[2019-08-07] MEDS: FUROSEMIDE 40 MG/4 ML VIAL (J1940) IV SCH (09:44)
[2019-08-07] MEDS: HumaLOG INSULIN (NovoLOG) PER UNIT SC SCH (09:45)
--- NOTE | 2019-08-07 14:26 | DS.PDOC ---
Discharge Summary General Date of Admission Aug 03, 2019 at 07:37 Date of Discharge 08/07/2019 Discharge Summary PROCEDURES PERFORMED DURING STAY: [None]. ADMITTING DIAGNOSES / DISCHARGE DIAGNOSES: Acute decompensated diastolic CHF - Patient continues to show signs of fluid overload , however, has been taken off of supplemental oxygen and is tolerating room air well - Patient has been negative fluid balance - Patient's diuretics with furosemide will be adjusted to oral dosing and will continue with this as an outpatient - Continue with adjusted dose spironolactone - Cardiology is on consultation; discussed case with cardiology who were okay with discharge to [facility] SVT - likely 2/2 hypomagnesemia - possible 2/2 pneumonia - Currently, patient is feeling significantly better - On 08/06 , patient had another episode of SVT and required adenosine to help correct rate - ECHO 08/03: 1. Study is of good technical quality. 2. Normal left ventricular (LV) size with mild left ventricular hypertrophy (LVH) and overall preserved left ventricle systolic function. Cannot rule out small apical wall motion abnormality. Grade 2 diastolic dysfunction indicative of high left ventricle end-diastolic pressure. 3. Heavily calcified aortic valve with mild or possibly mild to moderate stenosis. 4. Ewid-ry-mvqxerwd mitral insufficiency. 5. Mild tricuspid insufficiency. 6. Very high central venous pressure. 7. At least moderately severe pulmonary hypertension. - c/w Metoprolol; frequency was reduced to BID dosing - Was started on Amiodarone on 08/06; plan for twice a day dosing until August 13; after which patient will be adjusted to daily dosing - Cardiology is on consultation; we appreciate their input Pneumonia - Clinically improving - Blood cultures 07/31: Negative at 72 hours - CXR 08/02: Cardiomegaly with vascular congestion and diffuse interstitial prominence. Slight increase in bibasilar infiltrates and effusions. Findings suggest CHF and pulmonary edema. - c/w Cefdinir; s/p Ceftriaxone (Antibiotic Day #7) - will complete course of antibiotics as an outpatient s/p Hypomagnesemia - c/w daily supplementation Chronic obstructive pulmonary disease - no evidence of exacerbation - c/w inhaled therapy as ordered - Will DC prednisone on discharge Adrenal insufficiency TN CAD NIDDM2 Mood disorder Neuropathy Seizures GI prophylaxis DVT prophylaxis COMPLICATIONS/CHIEF COMPLAINT: Palpitations and chest pain HISTORY OF PRESENT ILLNESS: Patient is a 74-year-old female with PMhx of Recurrent SVT, HTN, Diastolic CHF, CAD, NIDDM2, COPD, Seizures who presented to the ER with shortness of breath and chest tightness. In emergency room, patient was found to have SVT and was admitted to hospitalist service for further evaluation and treatment. Cardiology was called on consultation. HOSPITAL COURSE: Acute decompensated diastolic CHF - Patient continues to show signs of fluid overload , however, has been taken off of supplemental oxygen and is tolerating room air well - Patient has been negative fluid balance - Patient's diuretics with furosemide will be adjusted to oral dosing and will continue with this as an outpatient - Continue with adjusted dose spironolactone - Cardiology is on consultation; discussed case with cardiology who were okay with discharge to [facility] SVT - likely 2/2 hypomagnesemia - possible 2/2 pneumonia - Currently, patient is feeling significantly better - On 08/06 , patient had another episode of SVT and required adenosine to help correct rate - ECHO 08/03: 1. Study is of good technical quality. 2. Normal left ventricular (LV) size with mild left ventricular hypertrophy (LVH) and overall preserved left ventricle systolic function. Cannot rule out small apical wall motion abnormality. Grade 2 diastolic dysfunction indicative of high left ventricle end-diastolic pressure. 3. Heavily calcified aortic valve with mild or possibly mild to moderate stenosis. 4. Wfbh-gl-ajnsdrtc mitral insufficiency. 5. Mild tricuspid insufficiency. 6. Very high central venous pressure. 7. At least moderately severe pulmonary hypertension. - c/w Metoprolol; frequency was reduced to BID dosing - Was started on Amiodarone on 08/06; plan for twice a day dosing until August 13; after which patient will be adjusted to daily dosing - Cardiology is on consultation; we appreciate their input Pneumonia - Clinically improving - Blood cultures 07/31: Negative at 72 hours - CXR 08/02: Cardiomegaly with vascular congestion and diffuse interstitial prominence. Slight increase in bibasilar infiltrates and effusions. Findings suggest CHF and pulmonary edema. - c/w Cefdinir; s/p Ceftriaxone (Antibiotic Day #7) - will complete course of antibiotics as an outpatient s/p Hypomagnesemia - c/w daily supplementation Chronic obstructive pulmonary disease - no evidence of exacerbation - c/w inhaled therapy as ordered - Will DC prednisone on discharge Adrenal insufficiency - c/w Fludrocortisone and Hydrocortisone HTN - c/w Metoprolol / Furosemide / Spironolactone CAD - c/w Metoprolol tartrate NIDDM2 - c/w ISS Mood disorder - c/w Buspirone Neuropathy - c/w Gabapentin Seizures - c/w Valproic acid GI prophylaxis - c/w Protonix DVT prophylaxis - c/w Lovenox DISCHARGE MEDICATIONS: Please see below. ALLERGIES: Please see below. PHYSICAL EXAMINATION ON DISCHARGE: Vitals (See below) General: Lying in bed, no acute distress, comfortable, AAOx3 HEENT: NC, AT CVS: +S1S2 Lungs: Fair air entry bilaterally. No rhonchi, rales or wheezing Abdomen: Abdomen remains soft, without any distention or tenderness Extremities: Lower extremity edema, 1+, - Calf tenderness LABORATORY DATA: Please see below. ACTIVITY: [As tolerated]. DISCHARGE PLAN: Follow-up with provider at [facility] Dr. Castillo within 7 days Remained compliant with treatment plan and medications Return to the ER if you experience any problems DISPOSITION: [facility]. DISCHARGE CONDITION: [Stable]. TIME SPENT ON DISCHARGE: 39 minutes Vital Signs/I&Os Vital Signs Date Time Temp Pulse Resp B/P (MAP) Pulse Ox O2 Delivery O2 Flow Rate FiO2 08/07/19 09:35 77 167/70 08/07/19 08:00 97.4 18 99 08/05/19 12:00 3.0 08/01/19 16:17 Nasal Cannula I&O- Last 24 Hours up to 6 AM 08/07/19 05:59 Intake Total 910 ml Output Total 1800 ml Balance -890 ml Laboratory Data Labs 24H Laboratory Tests 2 08/06/19 15:58: Anion Gap 9, Glomerular Filtration Rate 57.5, Blood Urea Nitrogen 20H, Creatinine 1.00#, Sodium Level 138, Potassium Level 3.5, Chloride Level 96L, Carbon Dioxide Level 33H, Calcium Level 7.3L, Magnesium Level 2.0 08/06/19 16:50: Bedside Glucose (Misc Panel) 432H 08/06/19 21:01: Bedside Glucose (Misc Panel) 258H 08/07/19 05:18: Anion Gap 6L, Glomerular Filtration Rate > 60.0, Blood Urea Nitrogen 20H, Creatinine 0.64, Sodium Level 140, Potassium Level 3.6, Chloride Level 99, Carbon Dioxide Level 35H, Calcium Level 7.5L, Magnesium Level 2.0 CBC/BMP Laboratory Tests 08/06/19 15:58 Calcium Level 7.3 L 08/07/19 05:18 Calcium Level 7.5 L FSBS Laboratory Tests Test 08/06/19 16:50 08/06/19 21:01 Range/Units Bedside Glucose (Misc Panel) 432 258 83-110 MG/DL Microbiology Microbiology 07/31/19 Blood Culture - Final, Complete NO GROWTH AFTER 5 DAYS 07/31/19 Blood Culture - Final, Complete NO GROWTH AFTER 5 DAYS Discharge Medications Scheduled Alendronate Sodium (Alendronate Sodium) 70 Mg Tablet, 70 MG PO QWEEK, (Reported) MONDAYS Amiodarone HCl (Amiodarone HCl) 200 Mg Tablet, 200 MG PO ASDIRECTED continue with BID dosing until 08/13/19, then change to daily dosing Aspirin (Aspirin) 81 Mg Tab.chew, 81 MG PO DAILY, (Reported) Buspirone HCl (Buspirone HCl) 5 Mg Tablet, 5 MG PO BID, (Reported) Calcium Carbonate/Vitamin D3 (Calcium 600 + Vit D 400 Softgl) 1 Each Capsule, 1 CAP PO DAILY, (Reported) Cefdinir (Cefdinir) 300 Mg Capsule, 300 MG PO BID Cholecalciferol (Vitamin D3) (Vitamin D3) 2,000 Unit Tablet, 2,000 UNIT PO DAILY, (Reported) Cyanocobalamin (Vitamin B-12) (Vitamin B-12) 100 Mcg Tablet, 100 MCG PO DAILY, (Reported) Fludrocortisone Acetate (Fludrocortisone Acetate) 0.1 Mg Tablet, 0.1 MG PO DAILY, (Reported) Fluticasone Propionate (Fluticasone Propionate) 16 Gm [place].susp, 1 SPRAY NARES DAILY, (Reported) Furosemide (Furosemide) 40 Mg Tablet, 1 TAB PO DAILY Gabapentin (Gabapentin) 100 Mg Capsule, 100 MG PO TID, (Reported) Hydrocortisone (Hydrocortisone) 10 Mg Tablet, 20 MG PO QAM, (Reported) Hydrocortisone (Hydrocortisone) 10 Mg Tablet, 10 MG PO QHS, (Reported) Lactose-Reduced Food (Ensure Liquid) 237 Ml Liquid, 120 ML PO BID, (Reported) 0830, 2030 Lidocaine (Lidocaine) 5% Adh..patch, 1 PATCH TOP DAILY, (Reported) Magnesium Oxide (Magnesium Oxide) 400 Mg Tablet, 400 MG PO DAILY, (Reported) Metformin HCl (Metformin HCl) 500 Mg Tablet, 1,000 MG PO BID, (Reported) 0800, 1700 Metoprolol Tartrate (Metoprolol Tartrate) 25 Mg Tablet, 25 MG PO BID 0830, 1700, 2100 Nicotine (Nicoderm Cq) 7 Mg/24 Hr Patch.td24, 1 PATCH TD BID, (Reported) Pantoprazole Sodium (Pantoprazole Sodium) 40 Mg Tablet.dr, 40 MG PO DAILY, (Reported) Salmeterol/Fluticasone (Advair 250-50 Diskus) 1 Each Blst.w.dev, 1 PUFF INH BID, (Reported) Spironolactone (Spironolactone) 25 Mg Tablet, 25 MG PO BID Umeclidinium [place] (Incruse Ellipta) 62.5 Mcg Blst.w.dev, 1 PUFF INH QHS, (Reported) Valproic Acid (Depakene) 250 Mg Cap, 250 MG PO TID, (Reported) 0800, 1400, 2000 Scheduled PRN Acetaminophen (Acetaminophen) 500 Mg Tablet, 500 MG PO Q4H PRN for PAIN, (Reported) Albuterol Sulf (Albuterol Sulfate) 2.5 Mg/3 Ml Vial.neb, 1 VIAL NEB Q2H PRN for SOB/WHEEZING, (Reported) Bisacodyl (Dulcolax) 10 Mg Supp.rect, 10 MG MI DAILY PRN for CONSTIPATION, (Reported) Magnesium Hydroxide (Milk of Magnesia) 400 Mg/5 Ml Oral.susp, 2,400 MG PO for CONSTIPATION, (Reported) Melatonin (Melatonin) 5 Mg Capsule, 5 MG PO QHS PRN for SLEEP, (Reported) Polyethylene Glycol 3350 (Miralax) 119 Gm Powder, 17 GM PO DAILY PRN for CONSTIPATION, (Reported) dilute in 8 ounces of water or juice Sodium Phosphate,Luce-Dibasic (Fleet Enema) 133 Ml Enema, 1 CHRISTI MI for BOWEL CARE/CONSTIPATION, (Reported) Tramadol HCl (Tramadol HCl) 50 Mg Tablet, 50 MG PO Q6H PRN for PAIN, (Reported) Allergies Coded Allergies: propoxyphene (Verified Allergy, Intermediate, hives, 07/31/19) SALVADOR LANGFORD MD Aug 07, 2019 14:26
== END 2019-08-07 11:42 | DRG 308 ==
LOC: M ED 19:47 → M ED INP 19:48 → M PCU 08-01 16:36 → OBSVTOIN 08-03 07:37
PROVIDERS: ADMIT Internal Medicine; ATTEND Internal Medicine
DX: I47.1 Supraventricular tachycardia (principal); J18.9 Pneumonia, unspecified organism; I50.31 Acute diastolic (congestive) heart failure; E27.40 Unspecified adrenocortical insufficiency; E83.42 Hypomagnesemia; J44.9 Chronic obstructive pulmonary disease, unspecified; I25.10 Atherosclerotic heart disease of native coronary artery without angina pectoris; E11.40 Type 2 diabetes mellitus with diabetic neuropathy, unspecified; R56.9 Unspecified convulsions; F39 Unspecified mood [affective] disorder; Z79.82 Long term (current) use of aspirin; Z79.899 Other long term (current) drug therapy; E78.5 Hyperlipidemia, unspecified

== ENCOUNTER → 2019-08-12 | Outpatient (REF) ==
[~2019-08-12] MED LIST changes: +ACET-683 PO; +ADV250INH INH; +ALBU83IN NEB; +AMIO200T PO; +ASPI81CH33 PO; +B-12100T2 PO; +CALCCAP4 PO; +D-20TAB PO; +DULC10SU2 PR; +ENSULIQ8 PO; +FLEEENE12 PR; +FLUD0.1T PO; +FLUTISP NARES; +FURO40TA2 PO; +GABA-1171 PO; +INCR1INH INH; +LIDO5TD TOP; +MAGN400T2 PO; +MELA5CAP2 PO; +METF-839 PO; +METO25TA4 PO; +MILKSUS3 PO; +MIRA3350 PO; +PANT40TA3 PO
[2019-08-12 14:55] LABS: CALCIUM LEVEL 8.1 MG/DL (8.8-10.2); CREATININE FOR GFR 0.98 MG/DL (0.55-1.30); GLOMERULAR FILTRATION RATE 58.9 (>39); MAGNESIUM LEVEL 1.2 MG/DL (1.8-2.4); POTASSIUM SERUM 3.3 MEQ/L (3.5-5.1)
== END ==
LOC: SKLAB7 13:29
PROVIDERS: ATTEND Internal Medicine
DX: I50.9 Heart failure, unspecified (principal)

== ENCOUNTER → 2019-08-17 | Outpatient (CLI) | payer MEDICARE ==
[~2019-08-17] MED LIST changes: +AMIO200T40 PO; +CARD180C4 PO; +FERR1TAB8 PO; +FERR325T3 PO; +FLUTISP; -FLUTISP NARES
--- NOTE | 2019-08-17 14:56 | REP ---
CHEST X-RAY: Two views. HISTORY: Short of breath. COMPARISON CHEST X-RAY: August 07, 2019. FINDINGS: Cardiomegaly is observed. There are old rib fractures on the right. There is an old fracture of the proximal humerus on the left. Postsurgical changes are seen in the cervical spine as before. Vascular calcification is noted. There is slight blunting of the pleural angles bilaterally. Pulmonary vasculature is somewhat cephalized. On lateral radiograph, there is anterior wedging in two adjacent mid thoracic vertebrae. This is unchanged from a comparison CT study of April 16, 2019. IMPRESSION: Cardiomegaly. Probable tiny bilateral effusions. Healing rib fractures. Electronically Signed by Mauricio Mcrae MD 08/17/2019 03:19 P
== END ==
LOC: M WUC 11:57
DX: R06.02 Shortness of breath (principal)

== ENCOUNTER → 2019-08-17 | Outpatient (REF) | payer MEDICARE ==
[~2019-08-17] MED LIST changes: +ASPI81CH8 PO; +CARD120C3 PO; +ELIQ5TAB PO; -GLIM1TAB PO; +GLIM1TAB4 PO; +INSUDET SC; +RISATAB3 PO; -SIMV10TA2 PO; +SIMV10TA21 PO
[2019-08-18 14:05] LABS: FOLATE 5.5 NG/ML
== END ==
LOC: M LAB REF 12:56
PROVIDERS: ATTEND Registered Nurse
DX: R06.02 Shortness of breath (principal); D64.9 Anemia, unspecified

== ENCOUNTER 2019-08-28 04:47 | Inpatient (IN) | payer MEDICARE ==
[~2019-08-28] VITALS: Ht 154.9 cm; Wt 55.0 kg
[~2019-08-28 04:47] MED LIST changes: -AMIO200T40 PO; -ASPI81CH8 PO; -CARD120C3 PO; -CARD180C4 PO; -ELIQ5TAB PO; -FERR1TAB8 PO; -FERR325T3 PO; +GLIM1TAB2 PO; -GLIM1TAB4 PO; -INSUDET SC; -RISATAB3 PO; +SIMV10TA2 PO; -SIMV10TA21 PO
[2019-08-28] MEDS ORDERED: methylPREDNISolone INJ 125 MG/2 ML VIAL (J2930) IV ONE (05:15)
[2019-08-28] MEDS: IPRATROPIUM 0.5MG/ALBUTEROL 2.5MG INH SOL UD 3ML (DUONEB)(J7620) NEB PRN ×3 (05:38→06:18)
[2019-08-28] MEDS ORDERED: FERR325T3 PO (05:39)
[2019-08-28] MEDS ORDERED: CARD180C4 PO (05:39)
[2019-08-28] MEDS ORDERED: ADV250INH INH ×2 (05:39→06:55)
[2019-08-28] MEDS ORDERED: K-TA10TA2 PO (05:39)
[2019-08-28 05:42] LABS: ABG BASE EXCESS -8.9 (-2.0-2.0); ABG HCO3 16.6 MEQ/L (22.0-26.0); ABG O2 SATURATION 94.1 % (95.0-99.0); ABG PARTIAL PRESSURE CO2 34.4 mmHg (35.0-45.0); ABG PARTIAL PRESSURE O2 76.8 mmHg (75.0-100.0); ABG STANDARD HCO3 17.2 MEQ/L (22.0-26.0); ABG TOTAL CO2 17.7 MEQ/L (23.0-31.0); ABG pH (ARTERIAL) 7.302 UNITS (7.350-7.450)
[2019-08-28 05:43] LABS: BASO # 0.1 10^3/uL (0.0-0.2); BASO % 0.3 % (0.0-1.0); EOS % 0.1 % (0.0-3.0); HEMATOCRIT 31.1 % (36.0-47.0); HEMOGLOBIN 8.6 g/dl (12.0-15.5); LYMPH # 0.9 10^3/uL (1.5-5.0); MEAN CORPUSCULAR HEMOGLOBIN 24.9 pg (27.0-33.0); MEAN CORPUSCULAR HGB CONC 27.7 g/dl (32.0-36.5); MEAN CORPUSCULAR VOLUME 89.9 fl (80.0-96.0); MONO # 1.7 10^3/uL (0.0-0.8); MONO % 9.9 % (0.0-5.0); NEUTROPHILS # 14.5 10^3/uL (1.5-8.5); NEUTROPHILS % 83.4 % (36.0-66.0); PLATELET COUNT, AUTOMATED 560 10^3/uL (150-450); RED BLOOD COUNT 3.46 10^6/uL (4.00-5.40); WHITE BLOOD COUNT 17.4 10^3/uL (4.0-10.0)
[2019-08-28 06:12] LABS: BLOOD UREA NITROGEN 59 MG/DL (7-18); CALCIUM LEVEL 8.8 MG/DL (8.8-10.2); CARBON DIOXIDE LEVEL 19 MEQ/L (21-32); CHLORIDE LEVEL 105 MEQ/L (98-107); CK-MB VALUE MASS 1.4 NG/ML (<3.6); CPK CREATINE PHOSPHOKINASE 28 U/L (26-192); CREATININE FOR GFR 2.06 MG/DL (0.55-1.30); GLUCOSE, FASTING 286 MG/DL (70-100); NT-PRO BNP 2119 PG/ML (<450); SODIUM LEVEL 132 MEQ/L (136-145); TROPONIN I < 0.02 NG/ML (< 0.10)
[2019-08-28 06:13] LABS: POTASSIUM SERUM 6.9 MEQ/L (3.5-5.1)
[2019-08-28] MEDS ORDERED: HumuLIN R (REGULAR) INSULIN (NovoLIN R) **100U/ML** PER UNIT IV STA ×2 (06:28→14:39)
[2019-08-28] MEDS ORDERED: DEXTROSE 50% 50 ML SYRINGE IV STA ×2 (06:28→14:39)
[2019-08-28] MEDS ORDERED: CALCIUM CHLORIDE 10% 1 GM in D5W 100 ML IV ONE (06:30)
[2019-08-28] MEDS ORDERED: FUROSEMIDE 40 MG/4 ML VIAL (J1940) IV ONE ×3 (06:30→12:30)
[2019-08-28] MEDS ORDERED: ENSULIQ8 PO (06:55)
[2019-08-28] MEDS ORDERED: FERR1TAB8 PO (06:55)
[2019-08-28] MEDS ORDERED: SPIR-10 PO (06:55)
[2019-08-28] MEDS ORDERED: FURO40TA2 PO (06:55)
[2019-08-28] MEDS ORDERED: AMIO200T40 PO (06:55)
[2019-08-28] MEDS ORDERED: cefTRIAXone SOD 2 GM in D5W MINI-BAG PLUS 50 ML IV ONE (07:15)
[2019-08-28] MEDS ORDERED: ALBUTEROL SULFATE 2.5 MG/0.5 ML INH NEB SOLN INH ONE (08:15)
[2019-08-28] MEDS ORDERED: IPRATROPIUM 0.5MG/ALBUTEROL 2.5MG INH SOL UD 3ML (DUONEB)(J7620) NEB ONE (08:15)
--- NOTE | 2019-08-28 08:33 | REP ---
PORTABLE CHEST X-RAY: Single view. HISTORY: Dyspnea and cough. COMPARISONS STUDY: August 17, 2019. FINDINGS: Oxygen delivery tubing and EKG monitoring electrodes are seen. The patient is status post cervical spine fusion surgery. There is an old healed fracture of the proximal humerus on the left. Cardiomegaly is again observed unchanged. Interstitial markings are diffusely prominent today, more so than on August 17, 2019 consistent with interstitial edema. Pulmonary vascular congestion is seen. No miguel pleural effusion is seen. There are healed or healing rib fractures noted on the right anteriorly. IMPRESSION: Cardiomegaly and prominent interstitial markings with vascular congestion consistent with CHF. Electronically Signed by Mauricio Mcrae MD 08/28/2019 08:40 A
[2019-08-28] MEDS: ADVAIR HFA 115/21MCG INHALER INH SCH ×2 (09:00→20:56)
[2019-08-28] MEDS: VITAMIN D 1,000 INTERNATIONAL UNITS TABLET PO SCH (09:00)
[2019-08-28] MEDS: VALPROIC ACID 250 MG CAP PO SCH ×3 (09:00→22:19)
[2019-08-28] MEDS ORDERED: diltiaZEM **CD** 180 MG CAP PO SCH (09:00)
[2019-08-28] MEDS ORDERED: FLUDROCORTISONE ACETATE 0.1 MG TAB PO SCH (09:00)
[2019-08-28] MEDS: guaiFENesin ER 600 MG TAB PO SCH ×2 (09:00→22:20)
[2019-08-28] MEDS: AMIODARONE 200 MG TAB (PACERONE) PO SCH (09:00)
[2019-08-28] MEDS ORDERED: HYDROCORTISONE 10 MG TAB PO SCH ×2 (09:00→11:00)
[2019-08-28] MEDS: ASPIRIN 81 MG CHEW TABLET PO SCH (09:00)
[2019-08-28] MEDS: busPIRone 5 MG TAB PO SCH ×2 (09:00→22:19)
[2019-08-28] MEDS: FERROUS SULFATE 325MG TAB PO SCH ×2 (09:00→22:20)
[2019-08-28] MEDS: LIDOCAINE 5% (LIDODERM) PATCH TOP SCH (09:00)
[2019-08-28] MEDS ORDERED: GLUCAGON FOR INJ 1 MG VIAL (J1610) SC PRN (09:15)
[2019-08-28] MEDS ORDERED: IPRATROPIUM 0.5MG/ALBUTEROL 2.5MG INH SOL UD 3ML (DUONEB)(J7620) NEB PRN (09:15)
[2019-08-28] MEDS ORDERED: DEXTROSE 50% 50 ML SYRINGE IV PRN (09:15)
[2019-08-28] MEDS ORDERED: GLUCOSE 4 GM CHEW TABLET PO PRN (09:15)
[2019-08-28] MEDS ORDERED: LIDOCAINE 2% 5ML JELLY UROJET TOP ONE (10:15)
[2019-08-28 10:28] LABS: CALCIUM LEVEL 10.1 MG/DL (8.8-10.2); CREATININE FOR GFR 1.89 MG/DL (0.55-1.30); GLOMERULAR FILTRATION RATE 27.6 (>39); POTASSIUM SERUM 6.1 MEQ/L (3.5-5.1)
[2019-08-28 11:24] LABS: PERCENT SATURATION 7.8 % (13.2-45.0)
[2019-08-28] MEDS ORDERED: FUROSEMIDE 40 MG/4 ML VIAL (J1940) IV SCH ×3 (12:00→20:00)
[2019-08-28] MEDS: HYDROCORTISONE 10 MG TAB PO SCH (12:00)
[2019-08-28 12:08] LABS: ALBUMIN 3.3 GM/DL (3.2-5.2)
[2019-08-28] MEDS: IPRATROPIUM 0.5MG/ALBUTEROL 2.5MG INH SOL UD 3ML (DUONEB)(J7620) NEB SCH ×2 (12:13→20:00)
[2019-08-28] MEDS ORDERED: AZITHROMYCIN INJ 500 MG, VIAL MATE ADAPTER 1 EACH in D5W 250 ML IV ONE (12:30)
--- NOTE | 2019-08-28 12:35 | CR ---
DATE OF CONSULTATION: 08/28/2019 REQUESTING PHYSICIAN: Dr. Viv Valverde CONSULTING PHYSICIAN: Dr. Deutsch REASON FOR CONSULTATION: Management of acute renal failure and hyperkalemia. CHIEF COMPLAINT: Patient was brought to the emergency room because of progressive shortness of breath. Note the history was obtained from patient's chart and some history from patient's . She herself is unable to provide any history at this time. HISTORY OF PRESENT ILLNESS: Laura Solano is 74-year-old female with past medical history of chronic diastolic congestive heart failure, coronary artery disease, diabetes mellitus, type 2, non-insulin, dependent chronic obstructive pulmonary disease (COPD), apparently normal renal function, baseline creatinine of around 0.5 in April 2019, history of adrenal insufficiency as per documentations. Patient's is not very clear about the adrenal insufficiency history. She is on a regimen of hydrocortisone, Florinef, and spironolactone at home. She was brought to the emergency room accompanied by her because of her progressive shortness of breath, which is going on for more than a week. reported that she was getting so weak and short of breath that he actually needed to hold her to take her to the restroom. Patient in the emergency room was found to have severe tachypnea. She was found to be fluid overloaded. Patient was in acute renal failure with hyperkalemia. Potassium level was more than 6. Nephrology service was called for further help in the management of this patient with acute renal failure, acute decompensated congestive heart failure, and hyperkalemia. Patient needed my emergent retention. I emergently saw the patient at the bedside in the emergency room. When I saw her she was still tachypneic, was having coarse crepitations. She was on nasal cannula. Patient had already been given a dose of Lasix in the emergency room. Patient was in moderate to severe respiratory distress when she was examined by myself. PAST MEDICAL HISTORY: Past medical history of recurrent supraventricular tachycardias (SVT) in the past, history of adrenal insufficiency, diabetes mellitus, type 2, non-insulin dependent, seizure disorder, COPD, hypertension, mood disorder, peripheral neuropathy. PAST SURGICAL HISTORY: History of spinal surgery in the past. ALLERGIES: Patient is allergic to PROPOXYPHENE. FAMILY HISTORY: No significant family history of end-stage renal disease requiring hemodialysis. SOCIAL HISTORY: Patient lives with her . There is no history of illicit drug abuse or alcohol abuse. There is history of smoking. REVIEW OF SYSTEMS: Patient is in significant respiratory distress at this time. Review of system was obtained from patient's and as reported by him patient does not have any recent fevers but she does have extreme weakness and progressive shortness of breath and inability to walk. All other review of system was not obtainable from the patient. PHYSICAL EXAMINATION: General: Patient is awake, in moderate to severe respiratory distress. Vital signs: Temperature is 97.2 degrees Fahrenheit, blood pressure 125/60, pulse is 69, respiratory rate of 24, saturating 91%. Head and neck exam: Extraocular muscles intact. Pupils equally round and reactive to light. Mucous membranes moist. Neck is supple. There is moderate elevation of her jugular venous distention (JVD). Cardiovascular: S1, S2, regular rate. 2+ edema of the bilateral lower extremities. Respiratory: Decreased breath sounds bilaterally at the bases with coarse crepitations all over the lungs with mild expiratory rhonchi at the bases. Abdomen: Soft. Positive bowel sounds. Genitourinary: Patient's bladder is palpable up to umbilicus. There is no Patton catheter at this time. Musculoskeletal: No clubbing or cyanosis. 2+ edema of the bilateral lower extremities was noted. 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 Otherwise, she moves extremities. Skin: No rashes or ulcers. Lymph node: No significant cervical or axillary lymphadenopathy. LAB REVIEW: CBC showed WBC 17.4, hemoglobin is 8.6, platelets of 560. ABG showed a pH of 7.30, pCO2 of 34, pO2 of 76, bicarbonate of 16.6, oxygen saturation is 94%. BMP on arrival showed sodium 132, potassium 6.9, chloride 105, bicarbonate 19, BUN 59, creatinine is 2.6, calcium is 8.8, BNP 2119,, TSH is 1.8. Repeat BMP done today morning showed sodium 135, potassium 6.1, chloride 108, bicarbonate 19, BUN 57, creatinine is 1.8, glucose 151. Repeat lactic acid level has gone up from 2.8 to 4.8, calcium is 10.1, iron 27, TIBC 345, transferrin saturation 7.8 and ferritin is 25. MICROBIOLOGY: Blood cultures are pending. IMAGING: A chest x-ray showed cardiomegaly and prominent interstitial markings with vascular congestion consistent with congestive heart failure (CHF). HOME MEDICATIONS: The patient's home medications include: - Tylenol as needed - alendronate 70 mg by mouth once a week - amiodarone 200 mg by mouth three times a week on Saturday, Saturday, Saturday - aspirin 81 mg by mouth daily - risperidone 5 mg by mouth twice a day - calcium tablet 1 tablet daily - vitamin D 2000 units by mouth daily - vitamin B12 1000 mcg by mouth daily - diltiazem 180 mg by mouth twice a day - iron tablet 325 mg by mouth twice a day - Florinef 0.1 mg by mouth daily - Lasix 40 mg by mouth daily - gabapentin 100 mg by mouth nightly - hydrocortisone 20 mg by mouth in the morning and 10 mg at night - Ensure liquid twice a day - magnesium oxide 400 mg by mouth twice a day - melatonin 5 mg by mouth nightly - metformin 1000 mg by mouth twice a day - Protonix 40 mg by mouth daily - MiraLAX 17 grams by mouth daily - Advair 250/50 1 puff twice a day - spironolactone 25 mg by mouth twice a day - Incruse Ellipta 1 puff once a day - valproic acid 250 mg by mouth three times a day ASSESSMENT: 74-year-old female with past medical history of normal renal function, chronic diastolic congestive heart failure, history of recurrent supraventricular tachycardia, adrenal insufficiency, diabetes mellitus, type 2, non-insulin dependent, seizure disorder admitted this time with acute decompensated congestive heart failure with pulmonary edema, acute renal failure, and hyperkalemia. PLAN: 1. Acute renal failure. Patient is in urinary retention at this time. She is also in acute decompensated congestive heart failure. She might have a cardiorenal syndrome at this time. It is okay to diurese the patient at this time. I have ordered a Patton catheter placement. Continue the IV Lasix. If the patient's urine output improves with the diuretics, hopefully her renal function will improve with the improvement of volume status. No urgent need of dialysis at this time. 2. Hyperkalemia. Patient was taking spironolactone 25 mg by mouth twice a day along with potassium chloride 20 mEq by mouth daily at home with a combination of hydrocortisone and at Florinef at home and she is in acute renal failure and decompensated congestive heart failure. I believe that hyperkalemia should improve just with diuresis and holding the spironolactone and potassium supplementation. There were no acute T wave changes on the EKG that was reviewed by myself. Continue the serial monitoring of BMP. Potassium is already improving from 6.9 to 6.1 in the 4 hours that she is in the emergency room (ER). 3. Hyponatremia. patient has hypervolemic hyponatremia. Sodium is already improving from 132 to 135 with the IV diuretics. 4. Normal anion gap metabolic acidosis with respiratory compensation. Acidosis is secondary to renal failure. Patient also has lactic acidosis. No need of IV bicarbonate administration at this time. Serum bicarbonate level is staying stable and it should improve with improvement in the renal function. 5. Iron-deficiency anemia. Patient's iron levels are low. She will be started on IV iron once her volume status gets better. Continue the oral iron at this time. However, it looks like patient is not absorbing the oral iron well. 6. Diabetes mellitus, type 2, non-insulin dependent. Patient was taking metformin at home and she has developed lactic acidosis. Avoid further use of metformin in this patient with acute renal failure and lactic acidosis. Some of the lactic acidosis might be secondary to congestive heart failure. 7. Acute decompensated diastolic congestive heart failure. I believe most likely it is secondary to use of Florinef and hydrocortisone at home. She was supposed to be on Lasix 40 mg daily. However, she got fluid overloaded despite Lasix and spironolactone. At this time , I would hold her Florinef. I would decrease her hydrocortisone dose to 10 mg in the morning and 5 mg in the evening, and I will continue to diurese this patient with torsemide 40 mg IV every 6 hours. Continue the Patton catheter and monitoring of daily intake and output. 8. History of recurrent SVT. Continue home dose of amiodarone 200 mg by mouth Saturday, Saturday, Saturday and diltiazem 180 mg by mouth twice a day. 9. Adrenal insufficiency. Patient's reported that she was in [place] for many weeks. She got multiple labs done and after that she was started on combination of hydrocortisone and Florinef. At this time, because of congestive heart failure I am holding the Florinef and hydrocortisone dose is being decreased to 10 mg by mouth in the morning and 5 mg in the evening. Further adjustment will be done tomorrow morning according to patient's blood pressures and electrolytes. 10. History of seizure disorder. Continue home dose of valproic acid 250 mg by mouth three times a day. 11. Osteoporosis with no active fractures at this time. The patient is in renal failure. She is not a candidate for bisphosphonate. Home alendronate is being stopped at this time. 12. COPD. Continue home dose of Advair and Incruse Ellipta along with the nebulizations as needed. 13. Leukocytosis and lactic acidosis. Patient's cultures are pending at this time. She is empirically being covered with IV ceftriaxone. Patient is hemodynamically stable. I would check the urinalysis to make sure patient does not have urinary tract infection. Thank you for involving me in the care of this patient. I shall be happy to follow the patient along with you tomorrow morning. Total critical care time spent in the management of this patient today morning in the emergency room was 1 hour that does not include any procedures.
[2019-08-28] MEDS: HumaLOG INSULIN (NovoLOG) PER UNIT SC SCH ×3 (13:09→21:00)
[2019-08-28 13:24] LABS: HEMATOCRIT 33.1 % (36.0-47.0); HEMOGLOBIN 9.4 g/dl (12.0-15.5); MEAN CORPUSCULAR HEMOGLOBIN 25.3 pg (27.0-33.0); MEAN CORPUSCULAR HGB CONC 28.4 g/dl (32.0-36.5); MEAN CORPUSCULAR VOLUME 89.2 fl (80.0-96.0); PLATELET COUNT, AUTOMATED 521 10^3/uL (150-450); RED BLOOD COUNT 3.71 10^6/uL (4.00-5.40)
[2019-08-28 13:53] LABS: APPEARANCE, URINE CLEAR (CLEAR); BACTERIA, URINE AUTO NEGATIVE (NEGATIVE); BILIRUBIN, URINE AUTO NEGATIVE (NEGATIVE); BLOOD, URINE BLOOD 1+ (NEGATIVE); COLOR, URINE STRAW (YELLOW); GLUCOSE, URINE (UA) AUTO 1+ mg/dL (NEGATIVE); KETONE, URINE AUTO NEGATIVE (NEGATIVE); LEUKOCYTE ESTERASE, URINE AUTO NEGATIVE (NEGATIVE); NITRITE, URINE AUTO NEGATIVE (NEGATIVE); PROTEIN, URINE AUTO NEGATIVE (NEGATIVE); RBC, URINE AUTO 1 /HPF (0-3); SPECIFIC GRAVITY URINE AUTO 1.008 (1.002-1.035); SQUAMOUS EPITHELIAL CELL UR AU 0 /HPF (0-6); UROBILINOGEN, URINE AUTO 0.2 mg/dL (0.0-2.0); WBC, URINE AUTO 0 /HPF (0-3)
[2019-08-28 14:02] LABS: BLOOD UREA NITROGEN 58 MG/DL (7-18); CARBON DIOXIDE LEVEL 18 MEQ/L (21-32); CHLORIDE LEVEL 105 MEQ/L (98-107); CREATININE FOR GFR 1.79 MG/DL (0.55-1.30); GLOMERULAR FILTRATION RATE 29.4 (>39); GLUCOSE, FASTING 279 MG/DL (70-100); POTASSIUM SERUM 6.6 MEQ/L (3.5-5.1); SODIUM LEVEL 134 MEQ/L (136-145); TROPONIN I < 0.02 NG/ML (< 0.10)
--- NOTE | 2019-08-28 14:02 | REP ---
REASON: Pneumonia and congestive heart failure. The latest prior for comparison is 04/16/[address] angio chest with contrast. The lack of intravenous contrast today decreases the sensitivity of the exam. No significant change appears to have developed involving the mediastinum or pulmonary braden. There is a small right pleural effusion which has developed since the last exam. There is four-chamber cardiac enlargement. There is no evidence of a pericardial effusion. The imaged osseous structures and imaged upper abdomen are essentially unchanged. Evaluation of the lung oshea shows a new patchy opacity in the right lower lobe with heavy right lung base consolidation and air bronchograms. Patchy opacities are also seen in the right middle lobe. All of this represents a change from the prior exam. There is respiratory motion artifact obscuring the fine detail. IMPRESSION: There is evidence of right lower and right middle lobe pneumonia. Certainly, I cannot rule out the possibility of neoplastic change. Followup to resolution is recommended. There is a small right pleural effusion, which has developed since the last exam. Electronically Signed by Sharad Stahl DO 08/28/2019 04:17 P
[2019-08-28 14:24] VITALS: BP 119/57
--- NOTE | 2019-08-28 15:23 | ECGEPIP ---
[facility] Test Date: 2019-08-28 Pat Name: MARCELINO FOWLER Department: Room: [place] [address] Gender: Female Piggyback Clerk: ERICKA : 1945 Requested By: RAJAN ANDREWS Order Number: [id number] Reading MD: Yen Wayne Measurements Intervals [place] Rate: 77 P: [place]: 0 QRS: -52 QRSD: 129 T: 112 QT: 439 QTc: 498 Interpretive Statements ATRIAL FIBRILLATION WITH ABERRANT CONDUCTION OR VENTRICULAR PREMATURE COMPLEXES MARKED LEFT AXIS DEVIATION LAFB/ILBBB MODERATE INTRAVENTRICULAR CONDUCTION DELAY ST DEVIATION AND MODERATE T-WAVE ABNORMALITY, CONSIDER LATERAL ISCHEMIA or LVH SUSPECT LEAD SWITCH V2 AND 3 COPD PATTERN RATE FASTER, ECTOPY NEW C/W 08/28/19 Electronically Signed on 08-28-2019 15:22:59 EDT by Yen Wayne
[2019-08-28 16:00] VITALS: BP 108/51
--- NOTE | 2019-08-28 16:29 | HPEPDOC ---
[facility] Medical History & Physical Date of Admission Aug 28, 2019 Date of Service: Aug 28, 2019 History and Physical CHIEF COMPLAINT: Shortness of breath HISTORY OF PRESENT ILLNESS: Ms. Solano is a 74-year-old female with a past medical history significant for HFpEF, COPD, diabetes, CAD with NSTEMI, A. fib, GERD, and SVTs who presents to the ER today with the chief complaint of shortness of breath. When asked about her symptoms she couldn't elaborate due to severe shortness of breath and simply stated that she cannot breathe. Per her , patient has been experiencing shortness of breath for years with noticeable progressively worsening symptoms in the past several months. He states that last night, Laura was unable to leave her bed to use the bathroom and required her 's assistance to ambulate due to her severe shortness of breath. He states that her severe dyspnea along with the presence of new onset crackles prompted him to take her to the ER. Per her , patient requires use of inclined hospital bed to sleep at night and admits that the patient suffers from PND, HOUSER and nonproductive cough. He also states worsening of his 's lower extremity edema. Per her , the patient also recently had a cervical fusion surgery which has required PT and OT therapy over the past month. Patient denies recent fever, chills, nausea, vomiting, recent respiratory infection. Patient's denies daily weight measurements at home. Per , patient has no known history of kidney pathology. However patient appears to have recent onset JUAN CARLOS. Per , patient has not had melena, hematochezia, or any known source of bleed. However patient was found to be anemic upon admission. PAST MEDICAL HISTORY: CAD with NSTEMI. Gait impairment. SVT A. fib. CHF with preserved ejection fraction. Adrenal insufficiency. DANIAL DM Anxiety. Chronic back pain. GERD. COPD Constipation. Seizure disorder, unspecified PAST SURGICAL HISTORY: Cervical fusion Hysterectomy SOCIAL HISTORY: Marital status: , at bedside Children: 2 daughters living. 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 ALLERGIES: Please see below. REVIEW OF SYSTEMS: CONSTITUTIONAL: Denies recent fevers or chills. Patient's denies regular weighing of his . HEENT: Denies change in vision or hearing. CARDIOVASCULAR: States mild chest pain, however, indicates more substernal distribution denies radiation into arm or other areas of chest consistent with GERD diagnosis. Denies palpitations, feelings of fluttering heart. RESPIRATORY: Positive for productive cough, orthopnea, PND, severe SOB. Denies recent respiratory infection. Per , patient requires hospital bed at home inclined to two thirds position to sleep adequately. GASTROINTESTINAL: Denies nausea, vomiting, abdominal pain. Per , patient may be mildly constipated, however, he was able to prompt a bowel movement this morning via the use of stool softener GENITOURINARY: Patient denies dysuria, polyuria, oliguria. NEUROLOGICAL: Patient had a cervical laminectomy with spinal fusion. Per , patient is receiving PT and OT treatments at home. She has difficulty with small joint manipulation. PSYCHIATRIC: Patient has known history of anxiety. Per , patient is anxious about her health now. HOME MEDICATIONS: Please see below. PHYSICAL EXAMINATION: VITAL SIGNS: See below GENERAL APPEARANCE: She is a thin elderly female lying in her hospital bed in apparent respiratory distress. She can respond to questioning but requires repetitive verbal stimulation to maintain attention and has difficulty vocalizing due to severe shortness of breath and obvious crackles. HEENT: Atraumatic. Obvious JVD noted. Positive hepatojugular reflex. No nasal exudates or secretions noted. Spinal fusion scar noted in posterior cervical region CARDIOVASCULAR: Exam difficult due to loud crackles, inspiratory rales. Heart sounds distant, however, irregular-irregular heartbeat noted LUNGS: Obvious crackles in all lung oshea. Inspiratory rails and mild wheezing in all lung oshea also noted. ABDOMEN: Patient mildly tender to palpation in left and right lower quadrants. No organomegaly discernible. No distention, bruising, caput medusa noted. MUSCULOSKELETAL: Patient is frail, elderly woman. No asymmetric muscle atrophy noted. EXTREMITIES: weak pulses in LE B/L. 2+ pitting edema bilaterally in lower extremities. NEUROLOGICAL: No focal deficits noted. She has history of CVA without residual deficit. PSYCHIATRIC: Patient is not appear visibly anxious. LABORATORY DATA: See below. IMAGING: CXR 08/28: Cardiomegaly and prominent interstitial markings with vascular maribell estion consistent with CHF Chest CT 08/28: Evidence of right lower middle lobe pneumonia. Cannot rule out possibility of neoplastic change. Small right pleural effusion noted which is new since last exam. Follow-up CT is recommended MICROBIOLOGY: Please see below. ASSESSMENT: Patient is a 74-year-old female with a past medical history significant for COPD, CHF with preserved ejection fraction, CAD, DM, and recent cervical fusion who presented to the ER for acute on chronic shortness of breath. She exhibited findings of CHF exacerbation including interstitial infiltrates on chest x-ray, lower trunk edema, orthopnea, PND. Upon admission she was found to have several complicating conditions including JUAN CARLOS, lactic acidosis, anemia, and leukocytosis. Her potassium was noted to be 6.9 on admission, which prompted serial EKGs, insulin, furosemide usage in efforts to lower potassium. Patient also found to have leukocytosis as well as CT finding suggestive of right lower middle lobe pneumonia. Patient placed on ceftriaxone and azithromycin. She found to have normocytic anemia as well as decreased iron levels. Serial H&H's were performed to monitor anemia status as well as iron replacement given. PLAN: #SOB likely 2/2 CHF exacerbation: Patient presents with acute on chronic shortness of breath. Known history of heart failure with preserved ejection fraction. Per her , patient has had progressively worsening shortness of breath the past several months with new onset crackles, orthopnea, dyspnea on exertion and PND noted in the past month. Chest x-ray on admission shows increased infiltrates consistent with CHF. +2 pitting edema noted bilaterally in lower extremities. BNP 2119. Prominent JVD noted. Patient received 40 mg furosemide IV in ER, as well as another 40 mg prior to placement on the floor. Continue furosemide 40 mg IV every 6 hours. 2 g sodium diet ordered. -Rule out pneumonia: leukocytosis at 17.[address] findings consistent with right middle lower lobe pneumonia. Respiratory panel ordered and pending. 2 g Ceftriaxone has been given with 1 g IV every 24 hours. Azithromycin injection was given once Rule out NE: Troponin negative on admission, continued to trend. EKG on admission shows A. fib. -Rule out symptomatic anemia: Hemoglobin and Hematocrit were 9.4 and 33.1 as of 13:07. Iron found to be low at 27, TIBC 345, Ferritin 25, Transferrin saturation 7.8. Start Ferrous Sulfate 325 mg PO BID. -Rule out respiratory compensation for metabolic acidosis: Patient found to have a nonanion gap metabolic acidosis. PH 7.3 and Lactic acid 2.7. Patient's tachypnea could be related to respiratory drive. -Rule out Amiodarone toxicity-Pt has been receiving amiodarone since 08/06/2019 for SVTs Start Guaifenesin ER 600 mg by mouth twice a day BMP every 4 hours Weight daily Telemetry 48 hour Procalcitonin ordered and pending -Acapella treatment ordered -Echocardiogram ordered -Head of Bed > 30 degrees #JUAN CARLOS: -Per , patient has no known history of renal pathology. On admission she was found to have a Creatinine of 2.06 (Baseline 0.5), BUN of 59 (baseline <20) with a BUN:Cr of 30:1, GFR of 25 (baseline >60) -UA shows +1 glucose, +1 RBC, + for yeast like cells -She currently receiving concurrently receiving diuretic treatment for CHF exacerbation. Will monitor renal status with BMPs every 4 hours and monitor for signs of worsening JUAN CARLOS/ATN #Lactic Acidosis: -Patient's lactate found to be elevated on admission to 2.8 and is currently 2.7 in the early afternoon -Ph was 7.3 on admission with normal anion gap -Unknown etiology -R/O infection. Patient receiving Ceftriaxone and Azithromycin for broad spectrum coverage/atypical respiratory coverage -Continue to trend Lactate and monitor for improvement as patient's cardiorenal azotemia is corrected #Leukocytosis: Patient's white blood cell count found to be elevated at 14.[address] findings are consistent for right middle and lower lobe pneumonia. Patient placed on ceftriaxone 1 g IV every 24 H and azithromycin IV once. Patient states she felt sweaty this morning, but denies other constitutional symptoms or recent infection #Anemia: -Pt found to be slightly anemic on admission. Patient does not have a history of known blood loss. -On admission patient noted to have Hemoglobin and Hematocrit of 8.6 and 31.1 respectively. Values slightly improved in the afternoon to 9.4 and 33.1 -Stool Occult blood ordered and pending. CBC shows leukocytosis at 560K Low iron noted at 27, TIBC 435, Transferrin % saturation 7.8, Ferritin 25 -Supplement with ferrous sulfate 325 twice a day #Hyperkalemia: -On admission patient had to be hyperkalemic at 6.9 -Patient had recently admitted for hypokalemia and was taking numerous medications which could advised to her current hyperkalemic state including spironolactone, potassium chloride, and potassium monoxide -Initial EKG as well as repeat EKG are both negative for peak T waves or signs of hyperkalemia induced arrhythmia. Continue furosemide 40 mg IV every 6 hours. Patient started on insulin 10 unit IV stat with 1 ampule of D50. Monitor potassium status via BMPs every 4 hours #Hyponatremia: -On admission pt was found to be hyponatremic at 133.6 (corrected) -Pt is hypervolemic and thus sodium is diluted -Correction of sodium will likely occur as patient is diuresed -Monitor with BMP Q4H #COPD: Patient has history of COPD, appears well controlled on DuoNeb and hydrocortisone. Continue albuterol/ipratropium 3 mL Continue hydrocodone 10 mg by mouth daily Continue Advair HFA 1 1521 #aFib: -Per , patient has history of aFib -EKG shows aFib on admission as well as on repeat EKG in the afternoon. Patient not currently anticoagulated, however, is rate controlled on diltiazem 120 mg by mouth twice a day -While in hospital will receive teds and sequentials. Patient on aspirin 81 mg daily by mouth #Hx of recurrent SVTs: Patient has history of recurrent SVTs. Rate control with diltiazem 120 mg by mouth twice a day. #Diabetes: Patient was placed on sliding scale #Seizure disorder: Continue valproic acid. #History of GERD. Continue pantoprazole sodium 40 mg by mouth #Mild constipation: Start docusate sodium 100 mg twice a day by mouth #Chronic back pain: Continue gabapentin 100 mg daily at bedtime by mouth #History of anxiety: Patient's history of anxiety and per patient's is anxious about her current health. Continue Buspirone HCl 5 mg twice a day by mouth #History of fall and fractures: Per , patient has had several falls in the past year with subsequent broken left wrist, injured right shoulder and broken right ribs. Patient on alendronate at home for likely osteoporosis. This medication was stopped on admission -Start vitamin D 2000 units daily by mouth Disposition: Overall prognosis guarded I performed a history and physical examination of the patient and discussed their management with the above documenter. I reviewed the note and agree with the documented findings and plan of care. Vital Signs Vital Signs Date Time Temp Pulse Resp B/P (MAP) Pulse Ox O2 Delivery O2 Flow Rate FiO2 08/28/19 11:47 71 91 08/28/19 09:15 125/60 (81) 08/28/19 08:47 24 Room Air 08/28/19 05:10 97.2 Laboratory Data Labs 24H Laboratory Tests 2 08/28/19 05:24: Immature Granulocyte % (Auto) 1.3, Neutrophils (%) (Auto) 83.4H, Lymphocytes (%) (Auto) 5.0L, Monocytes (%) (Auto) 9.9H, Eosinophils (%) (Auto) 0.1, Basophils (%) (Auto) 0.3, Neutrophils # (Auto) 14.5H, Lymphocytes # (Auto) 0.9L, Monocytes # (Auto) 1.7H, Eosinophils # (Auto) 0.0, Basophils # (Auto) 0.1, Nucleated Red Blood Cells % (auto) 0.1H, Blood Gas Bicarbonate Standard 17.2L, Arterial Blood pH 7.302L, Arterial Blood Partial Pressure CO2 34.4L, Arterial Blood Partial Pressure O2 76.8, Arterial Blood Total CO2 17.7L, Arterial Blood HCO3 16.6L, Arterial Blood Base Excess -8.9L, Arterial Blood Oxygen Saturation 94.1L, Anion Gap 8, Glomerular Filtration Rate 25.0L, Lactic Acid Level 2.8*H, Calcium Level 8.8, Total Creatine Kinase 28, Creatine Kinase MB 1.4, Creatine Kinase MB Relative Index 5.00H, Troponin I < 0.02, QE-Dfc-F-Type Natriuretic Peptide 2119H, Thyroid Stimulating Hormone (TSH) 1.880 08/28/19 09:31: Anion Gap 8, Glomerular Filtration Rate 27.6L, Calcium Level 10.1, Iron Level 27L, Total Iron Binding Capacity 345, Transferrin % Saturation 7.8L, Ferritin 25, Albumin 3.3 08/28/19 10:07: Lactic Acid Followup at 4 Hours 4.8*H 08/28/19 12:40: Bedside Glucose (Misc Panel) 246H CBC/BMP Laboratory Tests 08/28/19 05:24 08/28/19 09:31 Microbiology Microbiology 08/28/19 Blood Culture, Received Pending 08/28/19 Blood Culture, Received Pending Home Medications Scheduled Alendronate Sodium (Alendronate Sodium) 70 Mg Tablet, 70 MG PO QWEEK SATURDAY Amiodarone HCl (Amiodarone HCl) 200 Mg Tablet, 200 MG PO 3XW SATURDAY, SATURDAY AND SATURDAY Aspirin (Aspirin) 81 Mg Tab.chew, 81 MG PO DAILY Buspirone HCl (Buspirone HCl) 5 Mg Tablet, 5 MG PO BID Calcium Carbonate/Vitamin D3 (Calcium 600 + Vit D 400 Softgl) 1 Each Capsule, 1 CAP PO DAILY Cholecalciferol (Vitamin D3) (Vitamin D3) 2,000 Unit Tablet, 2,000 UNIT PO DAILY Cyanocobalamin (Vitamin B-12) (Vitamin B-12) 100 Mcg Tablet, 100 MCG PO DAILY Diltiazem Hcl (Cardizem Cd) 180 Mg Cap.er.24h, 180 MG PO BID Ferrous Sulfate (Ferrous Sulfate) 325 Mg Tablet, 325 MG PO BID Fludrocortisone Acetate (Fludrocortisone Acetate) 0.1 Mg Tablet, 0.1 MG PO DAILY Fluticasone Propionate (Fluticasone Propionate) 16 Gm [place].susp, 1 SPRAY NA D AILY Furosemide (Furosemide) 40 Mg Tablet, 40 MG PO DAILY Gabapentin (Gabapentin) 100 Mg Capsule, 100 MG PO QHS Hydrocortisone (Hydrocortisone) 10 Mg Tablet, 20 MG PO BID Lactose-Reduced Food (Ensure Liquid) 237 Ml Liquid, 120 ML PO BID Lidocaine (Lidocaine) 5% Adh..patch, 1 PATCH TOP DAILY APPLIES TO LOWER BACK Magnesium Oxide (Magnesium Oxide) 400 Mg Tablet, 400 MG PO BID Melatonin (Melatonin) 5 Mg Capsule, 5 MG PO QHS Metformin HCl (Metformin HCl) 500 Mg Tablet, 1,000 MG PO BID Pantoprazole Sodium (Pantoprazole Sodium) 40 Mg Tablet.dr, 40 MG PO Q2D Polyethylene Glycol 3350 (Miralax) 119 Gm Powder, 17 GM PO DAILY Salmeterol/Fluticasone (Advair 250-50 Diskus) 1 Each Blst.w.dev, 1 PUFF INH BID Spironolactone (Spironolactone) 25 Mg Tablet, 25 MG PO BID Umeclidinium [place] (Incruse Ellipta) 62.5 Mcg Blst.w.dev, 1 PUFF INH QHS Valproic Acid (Depakene) 250 Mg Cap, 250 MG PO TID 1000, 1600, 2200 Scheduled PRN Acetaminophen (Acetaminophen) 500 Mg Tablet, 500 MG PO Q4H PRN for PAIN Allergies Coded Allergies: propoxyphene (Verified Allergy, Intermediate, hives, 08/28/19) A-FIB/CHADSVASC A-FIB History Current/History of A-Fib/PAF?: Yes Current PO Anticoag Therapy: No Age/Risk Factor Scoring CHADSVASC: CHADSVASC Response (Comments) Value Age Risk Factor Age >/= 75 years old 2 Gender Risk Factor Female 1 Hx of CHF Yes 1 Hx of HTN No 0 Hx of Stroke/TIA/or VTE Yes 2 Hx of Diabetes Yes 1 Hx of Vascular Disease No 0 Total 7 Treatment Treatment ordered: NONE Reason Anticoagulant not given: Other (Currently anemic. Will continue to monitor for improvement in anemia. ) Other reason anticoagulant not: Currently anemic INDIRA CHOUDHURY OMS-3 Aug 28, 2019 16:26 RAJAN ANDREWS DO Aug 28, 2019 18:30 LIOR RODRIGUEZ MD Aug 30, 2019 14:42
[2019-08-28 18:22] LABS: MAGNESIUM LEVEL 2.3 MG/DL (1.8-2.4)
[2019-08-28 20:00] VITALS: BP 113/56
[2019-08-28] MEDS ORDERED: SOD POLYSTYRENE SULFONATE SUSP 15 GM/60 ML UD PO ONE (20:00)
--- NOTE | 2019-08-28 20:03 | ECGEPIP ---
[facility] - ED Test Date: 2019-08-28 Pat Name: MARCELINO FOWLER Department: Room: 0102 Gender: Female Cavalry Officer: mima : 1945 Requested By: Kade Mccall Order Number: [id number] Reading MD: Corey Johnston Measurements Intervals [place] Rate: 63 P: [place]: 0 QRS: -50 QRSD: 142 T: 123 QT: 486 QTc: 499 Interpretive Statements ATRIAL FIBRILLATION MARKED LEFT AXIS DEVIATION LEFT BUNDLE BRANCH BLOCK BASELINE ARTIFACT MAY AFFECT READING BASELINE WANDERING MAY AFFECT READING CW 08/06/19 RATE SLOWER IMPROVED LATERAL ST T WAVE CHANGES Electronically Signed on 08-28-2019 20:02:57 EDT by Corey Johnston
--- NOTE | 2019-08-28 20:06 | ECGEPIP ---
[facility] - ED Test Date: 2019-08-28 Pat Name: MARCELINO FOWLER Department: Room: [facility]02 Gender: Female Investment Accountant: : 1945 Requested By: Corey Johnston Order Number: [id number] Reading MD: Corey Johnston Measurements Intervals [place] Rate: 70 P: [place]: 0 QRS: -43 QRSD: 131 T: 129 QT: 409 QTc: 443 Interpretive Statements ATRIAL FIBRILLATION MARKED LEFT AXIS DEVIATION Left bundle branch block NONSPECIFIC ST T WAVE CHANGES CW 08/28/19 RATE INCREASED Electronically Signed on 08-28-2019 20:05:49 EDT by Corey Johnston
[2019-08-28] MEDS: **NOTE PATIENT COMMENT** MISC XX SCH (21:00)
[2019-08-28 21:38] LABS: BLOOD UREA NITROGEN 56 MG/DL (7-18); CALCIUM LEVEL 9.1 MG/DL (8.8-10.2); CARBON DIOXIDE LEVEL 24 MEQ/L (21-32); CHLORIDE LEVEL 106 MEQ/L (98-107); CREATININE FOR GFR 1.57 MG/DL (0.55-1.30); GLOMERULAR FILTRATION RATE 34.2 (>39); GLUCOSE, FASTING 97 MG/DL (70-100); MAGNESIUM LEVEL 2.1 MG/DL (1.8-2.4); POTASSIUM SERUM 5.6 MEQ/L (3.5-5.1); SODIUM LEVEL 137 MEQ/L (136-145); TROPONIN I < 0.02 NG/ML (< 0.10)
[2019-08-28] MEDS: DOCUSATE SODIUM 100 MG CAP PO SCH (22:19)
[2019-08-28] MEDS: HYDROCORTISONE 5MG TABLET PO SCH (22:19)
[2019-08-28] MEDS: GABAPENTIN 100 MG CAP PO SCH (22:20)
[2019-08-28] MEDS: ACETAMINOPHEN TAB 650MG DOSE (2X325MG) PO PRN (22:32)
[2019-08-29] VITALS (8 sets, daily range): BP systolic 93–122; BP diastolic 50–62
[2019-08-29] MEDS: IPRATROPIUM 0.5MG/ALBUTEROL 2.5MG INH SOL UD 3ML (DUONEB)(J7620) NEB SCH ×4 (02:07→20:00)
[2019-08-29 04:45] LABS: HEMATOCRIT 31.2 % (36.0-47.0); HEMOGLOBIN 9.2 g/dl (12.0-15.5); MEAN CORPUSCULAR HEMOGLOBIN 25.8 pg (27.0-33.0); MEAN CORPUSCULAR HGB CONC 29.5 g/dl (32.0-36.5); MEAN CORPUSCULAR VOLUME 87.6 fl (80.0-96.0); PLATELET COUNT, AUTOMATED 491 10^3/uL (150-450); RED BLOOD COUNT 3.56 10^6/uL (4.00-5.40); WHITE BLOOD COUNT 20.8 10^3/uL (4.0-10.0)
[2019-08-29 05:13] LABS: BLOOD UREA NITROGEN 56 MG/DL (7-18); CALCIUM LEVEL 8.9 MG/DL (8.8-10.2); CARBON DIOXIDE LEVEL 22 MEQ/L (21-32); CHLORIDE LEVEL 106 MEQ/L (98-107); CREATININE FOR GFR 1.45 MG/DL (0.55-1.30); GLOMERULAR FILTRATION RATE 37.5 (>39); GLUCOSE, FASTING 223 MG/DL (70-100); POTASSIUM SERUM 5.1 MEQ/L (3.5-5.1); SODIUM LEVEL 138 MEQ/L (136-145); TROPONIN I < 0.02 NG/ML (< 0.10)
[2019-08-29] MEDS: FUROSEMIDE 40 MG/4 ML VIAL (J1940) IV SCH ×2 (06:00)
[2019-08-29] MEDS: ADVAIR HFA 115/21MCG INHALER INH SCH ×2 (07:23→20:11)
[2019-08-29] MEDS: HumaLOG INSULIN (NovoLOG) PER UNIT SC SCH ×4 (07:30→20:36)
[2019-08-29] MEDS: VALPROIC ACID 250 MG CAP PO SCH ×3 (08:34→21:01)
[2019-08-29] MEDS: busPIRone 5 MG TAB PO SCH ×2 (08:34→20:59)
[2019-08-29] MEDS: HYDROCORTISONE 10 MG TAB PO SCH (08:34)
[2019-08-29] MEDS: VITAMIN D 1,000 INTERNATIONAL UNITS TABLET PO SCH (08:34)
[2019-08-29] MEDS: FERROUS SULFATE 325MG TAB PO SCH ×2 (08:34→20:58)
[2019-08-29] MEDS: guaiFENesin ER 600 MG TAB PO SCH ×2 (08:34→20:59)
[2019-08-29] MEDS: ASPIRIN 81 MG CHEW TABLET PO SCH (08:34)
[2019-08-29] MEDS: PANTOPRAZOLE 40MG TAB (PROTONIX) PO SCH (08:34)
[2019-08-29] MEDS: LIDOCAINE 5% (LIDODERM) PATCH TOP SCH (08:35)
[2019-08-29] MEDS ORDERED: cefTRIAXone SOD 1 GM in D5W MINI-BAG PLUS 50 ML IV SCH (09:00)
[2019-08-29] MEDS: DOCUSATE SODIUM 100 MG CAP PO SCH ×2 (09:00→20:58)
[2019-08-29] MEDS: PIPERACILLIN/TAZOBACTAM SOD 2.25 GM in D5W MINI-BAG PLUS 50 ML IV SCH ×3 (09:41→20:58)
[2019-08-29] MEDS: FUROSEMIDE 20 MG/2 ML VIAL (J1940) IV SCH ×2 (11:30→16:55)
[2019-08-29] MEDS ORDERED: AZITHROMYCIN INJ 500 MG, VIAL MATE ADAPTER 1 EACH in D5W 250 ML IV SCH (13:00)
--- NOTE | 2019-08-29 13:15 | IPN ---
DATE OF SERVICE: 08/29/2019 SUBJECTIVE: The patient was seen and examined at the bedside today morning in the intensive care unit (ICU). Patient is much more awake and alert today. She responded very well to the IV diuretics yesterday. She made 4.7 liters of urine. Her renal function is also improving, creatinine is down to 1.4. She continues to have persistent leukocytosis. She also needed a dose of Kayexalate yesterday because of persistent hyperkalemia. Potassium level has improved within the normal range now. CT chest done yesterday showed a right-sided pneumonia in addition to the fluid overload that patient has. The patient is currently on IV antibiotics including Rocephin and azithromycin. OBJECTIVE: Vital signs: Temperature is 98.5 degrees Fahrenheit, blood pressure 101/57, pulse is 112 and is regular. The patient is in atrial fibrillation. Respiratory rate of 16, saturating 99% on nasal cannula at 1 liter. Intake and output - urine output recorded is 4.7 liters yesterday, 358 mL so far today since overnight. Weight in the bed scale is 51.1 kg which 5 kg below her admission weight. PHYSICAL EXAMINATION: General: The patient is awake, alert, oriented times three, laying in the bed. No apparent distress at this time. Head and neck exam extraocular muscles intact. Pupils equally round and reactive to light. Mucous membranes are moist. Neck is supple. She has mildly elevated jugular venous distention (JVD). Cardiovascular: S1, S2, she has systolic ejection murmur, grade 3/6. Around 1+ edema of the ankles. Respiratory: Decreased breath sounds at the bases with mild inspiratory crackles at the right base. Abdomen: Soft, positive bowel sounds, nontender, no organomegaly. Genitourinary: She has an indwelling [place] catheter. Musculoskeletal: No clubbing or cyanosis. STAFF ELECTRICAL ENGINEER: No focal deficit. Power is 5/5 in all extremities. Lab review CBC showed a WBC 20.8, hemoglobin is 9.2, platelets are 491. BMP showed sodium 138, potassium 5.1, chloride 106, bicarb 22, BUN 56, creatinine is 1.4, it was 1.5 yesterday and glucose 223, calcium 8.9. Microbiology blood cultures are negative so far. IMAGING: A CAT scan of the chest was done yesterday which showed right lower lobe and right the middle lobe pneumonia. CURRENT INPATIENT MEDICATIONS: The patient's medications were all reviewed by me. IV ceftriaxone was stopped by myself and I have switched her to Zosyn 2.25 grams IV every 6 hours to cover possible aspiration pneumonitis as well. Because of the holding parameters she has not received the Lasix dose today morning, her last dose was last night. Cardizem dose was decreased to 120 mg by mouth twice a day by the primary team. She continues to be on hydrocortisone 10 mg in the morning and 5 mg in the evening. No other change in the medications today as compared with yesterday. ASSESSMENT AND PLAN: 1. Acute renal failure. It was secondary to a combination of urinary retention and cardiorenal syndrome. The patient is being diuresed, renal function is improving. Baseline creatinine is around 0.5. Okay to continue the diuretics at this time. 2. Hyperkalemia. Potassium level is improving significantly. She needed one dose of Kayexalate and no need of florinef administration at this time. Continued low potassium diet. 3. Hyponatremia. The patient had hypervolemic/hyponatremia. Sodium level has improved to 138 with the diuresis. 4. Right lower lobe pneumonia. Because of the risk of possible aspiration pneumonitis and cover the gram negative organisms I have stopped the IV ceftriaxone and started the patient on Zosyn 2.25 grams IV every 6 hours. 5. Normal anion gap metabolic acidosis. Patient's acidosis has improved with improvement in the renal function. 6. Iron-deficiency anemia. The patient continues to be on oral iron. Once she is treated for pneumonia she will be given IV iron. 7. Acute decompensated diastolic congestive heart failure. Florinef was stopped, hydrocortisone dose was decreased to 10 mg in the morning and 5 mg in the evening. The patient responded very well to Lasix, she made 4.7 liters of urine yesterday. Lasix dose has been decreased today to 20 mg IV twice a day with holding parameters. 8. History of her recurrent supraventricular tachycardia (SVT) and atrial fibrillation. The patient continues to be on amiodarone 200 mg Saturday, Saturday, Saturday. Diltiazem dose was decreased to 120 mg by mouth twice a day by the primary team because of soft blood pressures. 9. Adrenal insufficiency. When the patient arrived in the emergency room she was taking hydrocortisone, florinef, spironolactone and furosemide.She has developed congestive heart failure. She is only receiving at this time hydrocortisone 10 mg in the morning and 5 mg in the evening and this dose should be adequate for her. No urgent need to restart florinef. MTDD
--- NOTE | 2019-08-29 13:32 | IPNPDOC ---
Date Seen The patient was seen on 08/29/19. Progress Note SUBJECTIVE: Patient was seen and examined this morning. Patient states that her breathing has significantly improved. She currently has no new complaints. There have been no adverse events reported overnight. Her potassium has come down with the lasix and Kayexalate. She has diuresed close to 4L since her admission. She currently denies any chest pain. She is currently on room air. She states that her breathing has improved since her admission OBJECTIVE PHYSICAL EXAMINATION: VITAL SIGNS: Please see below. GENERAL: Awake, alert, and oriented. Appears in no acute distress. Appears more comfortable in comparison to her admission status HEENT: Atraumatic, normocephalic. Eyes are nonicteric. Trachea is midline. CARDIOVASCULAR: Irregularly irregular rhythm. Slightly tachycardic. JVD has improved RESPIRATORY: Bilateral rales with significant improvement from previous examination. Good respiratory effort. No wheezes. Decreased breath sounds in the base ABDOMINAL: Soft, nondistended. Nontender to palpation in all 4 quadrants. No rebound tenderness or guarding. EXTREMITIES: 1-2mm pitting bilateral edema. Full and equal pulses in bilateral upper and lower extremities NEUROLOGICAL: No focal neurological deficits PSYCHOLOGICAL: Mood and affect appear appropriate LABORATORY DATA, IMAGING STUDIES, MICROBIOLOGY: Please see below. Echocardiogram: Pending DVT prophylaxis ordered?: Mechanical ASSESSMENT AND PLAN: Patient is a 74 year old female who presented to the [facility] ER in respiratory distress secondary to acute decompensated CHF. On admission she was found to be hyperkalemic and was given calcium gluconate and insulin in the ER. Patient was given IV lasix. She received an additional dose of lasix and was continued on 40 mg IV lasix q6h. She has diuresed close to 4L. Her lasix was held due to her significant diuresis. Given her persistent hyperkalemia she was given a PO dose of Kayexelate. In the morning her potassium had improved PROBLEMS: 1. Shortness of breath secondary to CHF exacerbation -Patient had presented to [facility] ER in respiratory distress secondary to acute decompensated CHF. She was given 40mg of IV lasix at 0700 and additional 40mg Lasix IV at 1200. She was continued on 40mg IV lasix q6h. Overnight she has diuresed close to 4L -Nephrology has been consulted. Change in lasix to IV 20mg q6h -Continue daily weighs -Echocardiogram has been ordered. Currently pending. -Keep head of bed elevated > 30 degrees 2. Aspiration pneumonia/CAP/COPD exacerbation -Patient has evidence of pneumonia in her right lung. This may be secondary to aspiration. -Procalitonin is pending -Patient was started on empiric antibiotics. Zosyn has been added for possible aspiration PNA. Rocephin and Azithromycin discontinued -Acapella -Guaifenesin -Will continue to trend WBC 3. JUAN CARLOS secondary to Cardiorenal Syndrome -Patient was grossly volume overloaded. On exam she had significant rattles. She has been diuresed with improvement in her Cr. Will continue to monitor. -Nephrotoxic medications have been held 4. Hypotension -Patients blood pressure has been trending down. This is likely related to a combination of diuresis as well as her increased heart rate. She has been restarted on her diltiazem. Improvement in her heart rate and contractility to improve cardiac output/diastolic filling time. Will continue to monitor her blood pressure. She currently remains acceptable. 5. Lactic Acidosis -Patients lactic acidosis is resolving. This was likely secondary to her respiratory status. 6. Leukocytosis -Patient is currently on Zosyn for possible aspiration PNA. -She is on steroid which can contribute to leukocytosis -Will continue to trend 7. Anemia -Currently remains stable. Will continue to trend. She has had iron studies suggesting a iron deficiency anemia -Will continue to supplement with Ferrous Sulfate 325 BID 8. Hyperkalemia -Patient presented with hyperkalemia. EKG was negative for any acute changes. She has received lasix and kayexalte. Her Potassium this morning has shown improvement. This is likely secondary to her multiple medications that have gradually increased her potassium. -Will continue to monitor 9. Hyponatremia -Likely 2/2 dilution. This has improved with diuresis. 10. COPD -Patient has a history of COPD. She does have a right lobe PNA which may be aspiration. Will have patient on Duonebs. -Acapella 11. History of Atrial Fibrillation and SVT -Patient has a history of atrial fibrillation and SVT. She is currently on 120 mg diltiazem BID. -Patient is to remain on telemetry -Continue aspirin 12. Adrenal Insufficiency -Patient has stated that she has a history of adrenal insufficiency. She has been on hydrocortisone. She was previously on florinef. This has been discontinued. hydrocortisone will be increased. Morning Cortisol is pending -Patients blood pressure has remained acceptable 13. Diabetes Mellitus Type 2 -Patient is on sliding scale insulin coverage 14. Seizure Disorder -Continue Valproic acid 15. GERD -Pantoprazole 40mg PO 16. Constipation -Continue bowel regimen 17. Chronic Back pain -Continue gabapentin 100mg 18. Anxiety -Buspirone 5mg 19. History of falls and fractures -Continue Vitamin D 2000 units daily by mouth DISPOSITION: Patient has shown significant improvement since admission. Her overall mcc prognosis remains guarded I saw and evaluated the patient. I agree with the findings and plan of care as documented in the above note VS, I&O, 24H, Fishbone Vital Signs/I&O Vital Signs Date Time Temp Pulse Resp B/P (MAP) Pulse Ox O2 Delivery O2 Flow Rate FiO2 08/29/19 09:41 112 101/57 08/29/19 08:00 1.0 08/29/19 08:00 98.5 16 99 Nasal Cannula I&O- Last 24 Hours up to 6 AM 08/29/19 06:00 Intake Total 725 ml Output Total 5050 ml Balance -4325 ml Laboratory Data 24H LABS Laboratory Tests 2 08/28/19 12:40: Bedside Glucose (Misc Panel) 246H 08/28/19 13:07: Nucleated Red Blood Cells % (auto) 0.0, Anion Gap 11, Glomerular Filtration Rate 29.4L, Lactic Acid Level 2.7*H, Calcium Level 10.0, Magnesium Level 2.3, Troponin I < 0.02 08/28/19 13:26: Urine Color STRAW, Urine Appearance CLEAR, Urine pH 5.0, Urine Specific [place] 1.008, Urine Protein NEGATIVE, Urine Glucose (Auto)(UA) 1+H, Urine Ketones (Auto) NEGATIVE, Urine Blood 1+H, Urine Nitrite NEGATIVE, Urine Bilirubin NEGATIVE, Urine Urobilinogen 0.2, Urine Leukocyte Esterase (Auto) NEGATIVE, Uri ne WBC (Auto) 0, Urine RBC (Auto) 1, Urine Hyaline Casts (Auto) 1, Urine Bacteria (Auto) NEGATIVE, Urine Squamous Epithelial Cells 0, Urine Yeast-Like Cells (Auto) SMALLH, Urine Sperm (Auto) 08/28/19 17:15: Bedside Glucose (Misc Panel) 252H 08/28/19 17:45: Lactic Acid Followup at 4 Hours 2.6*H 08/28/19 20:55: Anion Gap 7L, Glomerular Filtration Rate 34.2L, Calcium Level 9.1, Magnesium Level 2.1, Troponin I < 0.02 08/29/19 04:08: Anion Gap 10, Glomerular Filtration Rate 37.5L, Calcium Level 8.9, Troponin I < 0.02, Nucleated Red Blood Cells % (auto) 0.1H CBC/BMP Laboratory Tests 08/28/19 13:07 08/28/19 20:55 08/29/19 04:08 Microbiology Microbiology 08/28/19 Blood Culture - Preliminary, Resulted No growth after 24 hours . All specim... 08/28/19 Blood Culture - Preliminary, Resulted No growth after 24 hours . All specim... RAJAN ANDREWS DO Aug 29, 2019 12:34 LIOR RODRIGUEZ MD Aug 30, 2019 14:44
--- NOTE | 2019-08-29 14:10 | ECHO ---
DATE OF PROCEDURE: 08/29/2019 REFERRING PHYSICIAN: Dr. Viv Valverde INDICATION: Congestive heart failure HEIGHT: 153 cm WEIGHT: 56 kg DIMENSIONS: IVS: 1.3 LV: 4.5 LVPW: 1.2 LA: 3.9 Aorta: 3.3 RV: 3.1 IVC: 1.9 FINDINGS: The study is of fair technical quality. The patient is in atrial fibrillation with heart rate fluctuating between 110 and 150 beats per minute. Left ventricle is normal size. Mild left ventricular hypertrophy is noted. Hyperdynamic left ventricle (LV) systolic function is present, I estimate ejection fraction (EF) around 65-70%. Right ventricle appears grossly normal. Left atrium is severely enlarged. Right atrium is probably normal size. Aortic valve is poorly seen. It is heavily calcified and there is restriction of cusp mobility. There are also degenerative abnormalities of the mitral valve with prominent mitral annular calcifications, especially at the base of the posterior mitral leaflet. Tricuspid and pulmonic valves appear normal. No pericardial effusion is noted. Inferior vena cava is on upper limits of normal size, but does not have any appreciable collapse with respiration indicative of likely high central venous pressure. Aortic root is normal. Aortic arch and abdominal aorta were not well seen. Doppler interrogation of aortic valve reveals approximately moderate stenosis. Mean gradient was only 19 mmHg and calculated aortic valve area 1.3 cm2, but this is in the setting of atrial fibrillation with rapid ventricular rate (RVR) and should not be considered completely accurate. No aortic insufficiency is seen. Approximately mild or [id number]-yo-ymbcuvow mitral insufficiency is present. Mild tricuspid insufficiency seen. Calculated pulmonary artery pressure is in 40s corresponding to moderate pulmonary hypertension. Pulmonic valve is functionally competent. Evaluation of diastolic function is inconclusive due to underlying atrial fibrillation. CONCLUSIONS: 1. Study is of acceptable technical quality. 2. Normal LV size with mild left ventricular hypertrophy (LVH) and hyperdynamic LV systolic function. 3. Approximately moderate calcific aortic stenosis. 4. Dbcf-[id number] mitral insufficiency. 5. Likely elevated central venous pressure and at least moderate pulmonary hypertension. COMMENT: Subacute bacterial endocarditis (SBE) prophylaxis is not recommended. MTDD
[2019-08-29] MEDS: ACETAMINOPHEN TAB 650MG DOSE (2X325MG) PO PRN (16:23)
[2019-08-29] MEDS: GABAPENTIN 100 MG CAP PO SCH (20:58)
[2019-08-29] MEDS: HYDROCORTISONE 5MG TABLET PO SCH (21:03)
[2019-08-29] MEDS: **NOTE PATIENT COMMENT** MISC XX SCH (21:03)
[2019-08-30] VITALS (8 sets, daily range): BP systolic 94–113; BP diastolic 55–60
[2019-08-30] MEDS: ACETAMINOPHEN TAB 650MG DOSE (2X325MG) PO PRN ×2 (00:19→21:59)
[2019-08-30] MEDS: IPRATROPIUM 0.5MG/ALBUTEROL 2.5MG INH SOL UD 3ML (DUONEB)(J7620) NEB SCH ×4 (02:00→19:08)
[2019-08-30] MEDS: PIPERACILLIN/TAZOBACTAM SOD 2.25 GM in D5W MINI-BAG PLUS 50 ML IV SCH ×4 (03:49→20:21)
[2019-08-30 04:49] LABS: HEMATOCRIT 29.6 % (36.0-47.0); HEMOGLOBIN 8.7 g/dl (12.0-15.5); MEAN CORPUSCULAR HEMOGLOBIN 25.7 pg (27.0-33.0); MEAN CORPUSCULAR HGB CONC 29.4 g/dl (32.0-36.5); MEAN CORPUSCULAR VOLUME 87.3 fl (80.0-96.0); PLATELET COUNT, AUTOMATED 474 10^3/uL (150-450); RED BLOOD COUNT 3.39 10^6/uL (4.00-5.40); WHITE BLOOD COUNT 20.1 10^3/uL (4.0-10.0)
[2019-08-30 05:16] LABS: CALCIUM LEVEL 7.5 MG/DL (8.8-10.2); CREATININE FOR GFR 1.04 MG/DL (0.55-1.30); POTASSIUM SERUM 4.7 MEQ/L (3.5-5.1)
[2019-08-30] MEDS: ADVAIR HFA 115/21MCG INHALER INH SCH ×2 (08:18→19:08)
[2019-08-30] MEDS: ASPIRIN 81 MG CHEW TABLET PO SCH (08:40)
[2019-08-30] MEDS: VITAMIN D 1,000 INTERNATIONAL UNITS TABLET PO SCH (08:40)
[2019-08-30] MEDS: guaiFENesin ER 600 MG TAB PO SCH ×2 (08:40→20:25)
[2019-08-30] MEDS: HYDROCORTISONE 10 MG TAB PO SCH ×2 (08:41→20:22)
[2019-08-30] MEDS: FUROSEMIDE 20 MG/2 ML VIAL (J1940) IV SCH (08:41)
[2019-08-30] MEDS: busPIRone 5 MG TAB PO SCH ×2 (08:41→20:25)
[2019-08-30] MEDS: FERROUS SULFATE 325MG TAB PO SCH ×2 (08:41→20:25)
[2019-08-30] MEDS: LIDOCAINE 5% (LIDODERM) PATCH TOP SCH (08:41)
[2019-08-30] MEDS: HumaLOG INSULIN (NovoLOG) PER UNIT SC SCH ×4 (08:42→20:21)
[2019-08-30] MEDS: VALPROIC ACID 250 MG CAP PO SCH ×3 (08:42→20:25)
[2019-08-30] MEDS: diltiaZEM **CD** 180 MG CAP PO SCH ×2 (08:46→20:25)
[2019-08-30] MEDS: DOCUSATE SODIUM 100 MG CAP PO SCH ×2 (09:00→20:25)
[2019-08-30] MEDS ORDERED: HYDROCORTISONE 100 MG/2 ML VIAL (J1720) IV STA (10:29)
--- NOTE | 2019-08-30 10:41 | IPNPDOC ---
Date Seen The patient was seen on 08/30/19. Progress Note SUBJECTIVE: Patient reports improvement in her breathing today. She denies any chest pressure lightheadedness or dizziness she denies palpitations nausea or vomiting OBJECTIVE PHYSICAL EXAMINATION: VITAL SIGNS: Please see below. GENERAL: Awake, alert, and oriented. Appears in no acute distress. Appears more comfortable in comparison to previous days exam. HEENT: Atraumatic, normocephalic. Eyes are nonicteric. Trachea is midline. CARDIOVASCULAR: Irregularly irregular rhythm. Slightly tachycardic. No elevation CVP RESPIRATORY: Scattered Bilateral rales with significant improvement from p revious days examination. ABDOMINAL: Soft, nondistended. Nontender to palpation in all 4 quadrants. No rebound tenderness or guarding. EXTREMITIES: No edema. Full and equal pulses in bilateral upper and lower extremities NEUROLOGICAL: No focal neurological deficits PSYCHOLOGICAL: Mood and affect appear appropriate LABORATORY DATA, IMAGING STUDIES, MICROBIOLOGY: Please see below. Echocardiogram: Pending DVT prophylaxis ordered?: I will start Lovenox ASSESSMENT AND PLAN: Patient is a 74 year old female who presented to the [facility] ER in respiratory distress secondary to acute decompensated CHF and hyperkalemia. PROBLEMS: 1. Shortness of breath secondary to CHF exacerbation -Improved with aggressive diuresis she has returned to her baseline respiratory status which we did slow yesterday. Possibly decompensated secondary to dietary nonadherence, Yesif, pneumonia -Nephrology has been consulted. Their help is appreciated -Continue daily weighs , eyes and nose -Echocardiogram has been ordered. Currently pending. 2. Aspiration pneumonia/CAP -Patient has evidence of pneumonia in her right lung. This may be secondary to aspiration. She was initially somewhat lethargic and certainly short of breath with difficulty clearing secretions at the time of her presentation -Procalitonin is pending -Patient was started on empiric antibiotics -Acapella -Guaifenesin -Will continue to trend WBC and follow up cultures, [place] 7d of Abx is O ER but I heard her store yesterday Biaxin nothing to do with her 3. JUAN CARLOS secondary to Cardiorenal Syndrome -Patient was grossly volume overloaded. On exam she had significant rattles. She has been diuresed with improvement in her Cr. Will continue to monitor. -Nephrotoxic medications have been held, nephrology help appreciated 4. Hypotension -Patients blood pressure has been trending down. This is likely related to a combination of diuresis as well as her increased heart rate. I'll restart her home dose of diltiazem this morning. However after receiving a dose her heart rate remains elevated blood pressure somewhat soft. Reports from nursing staff state that her blood pressure become softer in the morning given the history of adrenal insufficiency and that her steroids have been weaned during this acute m edical illness concern for possible adrenal insufficiency I will provide a one- time dose of hydrocortisone 100 mg a monitor closely. It is possible she has been aggressively diuresed and is intravascularly depleted as well 5. Lactic Acidosis -Patients lactic acidosis is resolving. This was likely secondary to her respiratory status. 6. Leukocytosis -Patient is currently on Zosyn for possible aspiration PNA. -She is on steroid which can contribute to leukocytosis -Will continue to trend 7. Anemia -Currently remains stable. Will continue to trend. She has had iron studies suggesting a iron deficiency anemia -Will continue to supplement with Ferrous Sulfate 325 BID 8. Hyperkalemia -Patient presented with hyperkalemia. EKG was negative for any acute changes. She has received lasix and kayexalte. Her Potassium this morning has shown improvement. This is likely secondary to her multiple medications that have gradually increased her potassium. -Will continue to monitor 9. Hyponatremia , hypervolemic -This has improved with diuresis. 10. COPD -Patient has a history of COPD. She does have a right lobe PNA which may be aspiration. Will have patient on Duonebs. -Acapella , rest recess at its baseline now 11. History of Atrial Fibrillation and SVT -Patient has a history of atrial fibrillation and SVT. She is currently on her home dose of 180 mg diltiazem BID. -Patient is to remain on telemetry -Continue aspirin she is not on anticoagulation will defer to her outpatient providers 12. Adrenal Insufficiency -Patient has stated that she has a history of adrenal insufficiency. She has been on hydrocortisone. She was previously on florinef. This has been discontinued. As outlined above 13. Diabetes Mellitus Type 2 -Patient is on sliding scale insulin coverage 14. Seizure Disorder -Continue Valproic acid 15. GERD -Pantoprazole 40mg PO 16. Constipation -Continue bowel regimen 17. Chronic Back pain -Continue gabapentin 100mg 18. Anxiety -Buspirone 5mg 19. History of falls and fractures -Continue Vitamin D 2000 units daily by mouth DISPOSITION: Patient has shown significant improvement since admission. Her overall correction prognosis remains guarded VS, I&O, 24H, Nelsonbonsurya Vital Signs/I&O Vital Signs Date Time Temp Pulse Resp B/P (MAP) Pulse Ox O2 Delivery O2 Flow Rate FiO2 08/30/19 08:46 116 101/56 08/30/19 08:00 97.8 20 96 Room Air 08/29/19 08:00 1.0 I&O- Last 24 Hours up to 6 AM 08/30/19 06:00 Intake Total 1570 ml Output Total 1100 ml Balance 470 ml Laboratory Data 24H LABS Laboratory Tests 2 08/29/19 17:24: Bedside Glucose (Misc Panel) 236H 08/30/19 04:09: Nucleated Red Blood Cells % (auto) 0.1H, Anion Gap 6L, Glomerular Filtration Rate 55.0, Calcium Level 7.5#L CBC/BMP Laboratory Tests 08/30/19 04:09 Microbiology Microbiology 08/28/19 Blood Culture - Preliminary, Resulted No Growth after 48 hours. All Specime... 08/28/19 Blood Culture - Preliminary, Resulted No Growth after 48 hours. All Specime... LIOR RODRIGUEZ MD Aug 30, 2019 10:41
[2019-08-30 10:55] LABS: MAGNESIUM LEVEL 1.8 MG/DL (1.8-2.4)
[2019-08-30] MEDS: ENOXAPARIN 30 MG/0.3 ML SYR (J1650) SC SCH (12:13)
[2019-08-30] MEDS: GABAPENTIN 100 MG CAP PO SCH (20:25)
[2019-08-30] MEDS: **NOTE PATIENT COMMENT** MISC XX SCH (20:25)
[2019-08-31] VITALS: BP 114/61
[2019-08-31] MEDS: IPRATROPIUM 0.5MG/ALBUTEROL 2.5MG INH SOL UD 3ML (DUONEB)(J7620) NEB SCH ×4 (01:14→20:11)
[2019-08-31] MEDS: PIPERACILLIN/TAZOBACTAM SOD 2.25 GM in D5W MINI-BAG PLUS 50 ML IV SCH ×2 (03:49→08:43)
[2019-08-31 04:00] VITALS: BP 104/53
[2019-08-31] MEDS: ACETAMINOPHEN TAB 650MG DOSE (2X325MG) PO PRN ×2 (05:03→21:27)
[2019-08-31 05:22] LABS: HEMATOCRIT 29.9 % (36.0-47.0); HEMOGLOBIN 8.6 g/dl (12.0-15.5); MEAN CORPUSCULAR HEMOGLOBIN 25.5 pg (27.0-33.0); MEAN CORPUSCULAR HGB CONC 28.8 g/dl (32.0-36.5); MEAN CORPUSCULAR VOLUME 88.7 fl (80.0-96.0); PLATELET COUNT, AUTOMATED 393 10^3/uL (150-450); RED BLOOD COUNT 3.37 10^6/uL (4.00-5.40)
[2019-08-31 05:40] LABS: BLOOD UREA NITROGEN 33 MG/DL (7-18); CALCIUM LEVEL 7.6 MG/DL (8.8-10.2); CARBON DIOXIDE LEVEL 23 MEQ/L (21-32); CHLORIDE LEVEL 111 MEQ/L (98-107); CREATININE FOR GFR 0.71 MG/DL (0.55-1.30); GLOMERULAR FILTRATION RATE > 60.0 (>39); GLUCOSE, FASTING 183 MG/DL (70-100); POTASSIUM SERUM 4.5 MEQ/L (3.5-5.1); SODIUM LEVEL 139 MEQ/L (136-145)
--- NOTE | 2019-08-31 06:34 | IPN ---
DATE OF VISIT: 08/30/2019 HISTORY OF PRESENT ILLNESS: Laura is seen and examined this morning at the bedside in the intensive care unit. Her is present at the bedside. The patient reports improvement in her shortness of breath. She remains on room air. Her systolic blood pressure ranged from 93-109. Her hydrocortisone dose was increased again to 20 mg in a.m. 10 mg in p.m. Cardiology has adjusted her diltiazem dose. Her potassium levels have normalized today and her renal function continues to improve back towards baseline. PHYSICAL EXAMINATION: VITAL SIGNS: Temperature 97.8, pulse 120, respiratory rate 20, blood pressure 101/56, saturating 96% on room air. Intake yesterday was 1470, urine output yesterday was 1180, net positive 280, weight in the bed scale today is 51.6 kg. GENERAL: The patient is seen lying in bed, elderly female appears chronically ill but in no acute distress. HEENT: Mucous membranes are moist. HEART: Heart sounds are irregularly irregular. There is tachycardia, heart rate around 110. Jugular veins are mildly elevated. There is a systolic murmur. There is improvement in her peripheral edema, compression stockings in place. LUNGS: Lungs show improved breath sounds bilaterally. There is no tachypnea and there are no crackles. ABDOMEN: Soft and nondistended. There is a Patton catheter in place. NEUROLOGIC: She is hard of hearing but there is no focal deficit. SKIN: Normal turgor and temperature. LABORATORY DATA: Sodium 139, potassium 4.7, bicarbonate 24, BUN 44, creatinine 1.0, magnesium 1.8, hemoglobin 8.7, platelets 474. MEDICATIONS REVIEWED BY MYSELF: - The patient's Cardizem dose was increased by cardiology to 180 mg by mouth twice daily. - I am discontinuing her IV Lasix and changing her to Lasix 40 mg by mouth daily. - Hydrocortisone was increased to 20 mg in the morning and 10 mg in the evening. The remainder of medications remain unchanged from prior. PROBLEMS: 1. Renal function has improved nicely over the course of this admission. Her baseline creatinine is less than 1. She has responded nicely to diuresis and her volume status is also improving. I am switching her back to her oral diuretic regimen. We will continue the Patton catheter for now. She has not really been mobile or out of bed at all since admission. 2. Hyperkalemia. It is multifactorial and due to acute kidney injury use of spironolactone and potassium supplements at home. Her serum potassium has normalized today. I would continue to hold the spironolactone for another 24 hours. 3. Decompensated congestive heart failure. Echocardiogram showed preserved left ventricular systolic function. Evaluation of diastolic function was inconclusive due to her atrial fibrillation (A-fib). Her volume status has improved over the admission. Her blood pressures have been borderline soft. Some doses of IV Lasix were held for that reason. I am switching her over to oral Lasix. At home she also takes spironolactone 25 mg by mouth twice daily. I will hold this at present but we can likely resume in the coming 24 hours as her potassium continues to improve. Given her congestive heart failure (CHF) exacerbation I would keep her off of fludrocortisone. 4. Borderline hypotension. I agree with hydrocortisone of 20 mg in the morning and 10 mg in the evening. Cardiology has slowly up titrated her diltiazem dose. 5. Iron deficiency anemia. Hemoglobin of 8.7, iron level 27 with a transferrin saturation of 7%. I would plan to give the patient IV iron prior to discharge but this can wait until she has been treated for pneumonia and until her volume status is compensated. 6. Multiple electrolyte disturbances The patient's sodium, potassium, magnesium and bicarbonate levels have all normalized at this point.
[2019-08-31 08:00] VITALS: BP 110/67
[2019-08-31] MEDS: ENOXAPARIN 30 MG/0.3 ML SYR (J1650) SC SCH (08:43)
[2019-08-31] MEDS: FUROSEMIDE 40 MG TAB PO SCH (08:44)
[2019-08-31] MEDS: LIDOCAINE 5% (LIDODERM) PATCH TOP SCH (08:44)
[2019-08-31] MEDS: HumaLOG INSULIN (NovoLOG) PER UNIT SC SCH ×4 (08:44→21:00)
[2019-08-31] MEDS: VITAMIN D 1,000 INTERNATIONAL UNITS TABLET PO SCH (08:45)
[2019-08-31] MEDS: PANTOPRAZOLE 40MG TAB (PROTONIX) PO SCH (08:45)
[2019-08-31] MEDS: ASPIRIN 81 MG CHEW TABLET PO SCH (08:45)
[2019-08-31] MEDS: DOCUSATE SODIUM 100 MG CAP PO SCH ×2 (08:45→21:25)
[2019-08-31] MEDS: AMIODARONE 200 MG TAB (PACERONE) PO SCH (08:45)
[2019-08-31] MEDS: diltiaZEM **CD** 180 MG CAP PO SCH ×2 (08:45→21:26)
[2019-08-31] MEDS: FERROUS SULFATE 325MG TAB PO SCH ×2 (08:46→21:25)
[2019-08-31] MEDS: busPIRone 5 MG TAB PO SCH ×2 (08:46→21:25)
[2019-08-31] MEDS: HYDROCORTISONE 10 MG TAB PO SCH ×2 (08:46→21:25)
[2019-08-31] MEDS: guaiFENesin ER 600 MG TAB PO SCH ×2 (08:46→21:25)
[2019-08-31] MEDS: VALPROIC ACID 250 MG CAP PO SCH ×3 (08:46→21:25)
[2019-08-31 10:27] LABS: CORTISOL AM 29.6 UG/DL (4.3-22.4)
[2019-08-31] MEDS: ADVAIR HFA 115/21MCG INHALER INH SCH ×2 (12:07→20:13)
[2019-08-31] MEDS ORDERED: CEPACOL LOZENGE PO PRN (13:00)
--- NOTE | 2019-08-31 13:58 | IPN ---
DATE OF SERVICE: 08/31/2019 SUBJECTIVE: Laura is seen and examined this morning at the bedside in the intensive care unit. Her is present as well. She does not report any new overnight complaints. Got out of the bed yesterday to the chair but has not really been mobile much more than that. Denies shortness of breath at rest. Renal function has improved towards baseline and her electrolyte abnormalities have resolved. Patton catheter is to be discontinued later today. Temperature 98.5, pulse 98, respiratory rate 16, blood pressure 110/67, saturating 98% on room air. Intake yesterday was 1600, urine output yesterday was 1740, net negative 140. Weight in the bed scale today is 53.7 kg. General: The patient is seen lying in bed, elderly female, appears frail but in no acute distress. Had of hearing. Sclerae are anicteric. Cardiac: Irregularly irregular. Tachycardia has improved from prior. Heart rate is in the 90s. There is trace edema in the peripheries. Lungs show symmetric air entry bilaterally without crackles. Jugular veins are no longer elevated. Genitourinary shows Patton catheter with urine. Extremities show compression stockings and trace edema. Psychiatric: The patient appears depressed. Labs: Sodium 139, potassium 4.5, bicarbonate 23, BUN 33, creatinine 0.7. Hemoglobin 8.6, white count 16. Inpatient medications reviewed by myself and no change as compared to yesterday's. PROBLEMS: 1. Acute kidney injury. This has resolved. Renal function has recovered back to baseline, which is creatinine of less than 1. She is back on her usual home diuretic of Lasix 40 mg by mouth daily, and her volume status has improved as well. 2. Multiple electrolyte disturbances, including hyperkalemia, hypomagnesemia, hyponatremia and metabolic acidosis. Her multiple electrolyte abnormalities has improved compared to prior. She is off of potassium supplement. She is also off of Florinef. 3. Hypervolemia. The patient has diuresed satisfactorily. Volume status has improved. She has preserved left ventricular systolic function. She is continued on oral Lasix. I have not resumed her spironolactone given her recent significant hyperkalemia. 4. Iron deficiency anemia. The patient continues on oral iron supplementation. She can also be given IV Venofer after her infectious issues resolve. DISPOSITION: Nephrology is signing off the case at this time. Please reconsult as needed.
--- NOTE | 2019-08-31 14:55 | REP ---
Single view chest: 08/31/2019. Indication: Pneumonia. Comparison: CT chest dated 08/28/2019. Findings: Right lung opacities are redemonstrated consistent with multifocal pneumonitis versus neoplasm. There is no significant pleural effusion detected. There is no pneumothorax. Cardiac silhouette is stable. Proximal left humeral deformity and chronic right-sided rib fractures are redemonstrated. Impression: Persistent right pulmonary opacities as described. Electronically Signed by Jaime Owens DO 08/31/2019 02:47 P
[2019-08-31 15:11] VITALS: BP 105/55
--- NOTE | 2019-08-31 16:51 | IPNPDOC ---
Text Note Date of Service The patient was seen on 08/31/19. NOTE Subjective: Patient was seen at bedside this morning, stated that she thinks she has laryngitis. She complains of a mild sore throat, however, denies any exudates, fevers, chills, cough, or dysphasia. She denies any other changes to her condition. She does to complain of a persistent dry cough, however, she states that her breathing has become better. She was excited to have her Patton removed and to be placed in a lower level of care. She stated that PT/OT and respiratory therapy saw her this morning. Objective: Vital signs: See below General: Patient appeared alert and comfortable sitting up in a chair, in no acute distress. HEENT: Pupils respond to light and are equal. No scleral icterus noted. Atraumatic. Trachea midline. No JVD. Lungs: Mild expiratory stridor and wheezes noted in all airfields. No crackles noted Heart: Irregular irregular heartbeat noted. Normal S1 and S2. No rubs or gallops noted Abdomen: Normal abdominal sounds noted in all 4 quadrants. No organomegaly, bruits, or distension noted. No guarding or rebound tenderness. No Jaundice noted. No pain or tenderness to palpation noted Extremities: Trace edema noted in LE B/L. No rashes, wounds, weeping sores noted. No significant muscle atrophy noted. Neuro: No focal deficits noted noted. Muscle strength 5/5 in LE and UE flexion and extension. Skin: No rashes, bruising, ulcerations noted Assessment: Patient is a 74 year old female who presented to the [facility] ER in respiratory distress secondary to acute decompensated CHF and hyperkalemia. Upon admission she presented with severe shortness of breath, acute kidney injury, lactic acidosis, possible aspiration pneumonia/CAP with leukocytosis and hyperkalemia. Her breathing improved with aggressive diuresis, which resolved her hypervolemic state. This had the beneficiary effect of reducing her cardiorenal syndrome which improved her GFR, creatinine, BUN/creatinine ratio. Upon admission she was noted to have right middle and lower lobe infiltrates consistent with pneumonia and was placed on Zosyn and azithromycin. Leukocytosis remains persistent, however, is trending down. She has remained afebrile during her stay. During her stay, patient was noted to have a.m. hypotensive episodes suggesting etiology related to her primary adrenal insufficiency. Her hydrocortisone dose was increased to 20 in the a.m. and 10 PM as well as given 100 mg 1 time dose, which showed the desired effect of normalizing her blood pressure and heart rate. Plan: #SOB 2/2 CHF exacerbation: -Patient has history of heart failure with preserved ejection fraction is into the ER with severe shortness of breath in the presence of a volume overloaded state. -Symptoms have improved with aggressive diuresis. IV furosemide switched to PO 40 mg -Patient's breathing much improved with possible improvement in peripheral edema, JVD, lungs sounds -Patient's persistent cough treated with Cepacol 1 lozenge when necessary -Echocardiogram was ordered and shows mild left ventricular hypertrophy, moderate calcific aortic stenosis, mild to moderate mitral insufficiency, elevated CVP, with moderate pulmonary hypertension, EF=65-70% #JUAN CARLOS, likely secondary to cardiorenal syndrome: -Per , patient has no known history of renal pathology. On admission she was found to have a Creatinine of 2.06 (Baseline 0.5), BUN of 59 (baseline <20) with a BUN:Cr of 30:1, GFR of 25 (baseline >60) -Current values indicate returned to baseline kidney function. No electrolyte abnormalities noted with discontinuation of her potassium supplementation and Florinef #Lactic Acidosis: -Patient's lactate found to be elevated on admission to 2.8 -ph was 7.3 on admission with normal anion gap, however, has likely resolved due to correction of kidney function as well as respiratory status #Leukocytosis: Patient's white blood cell count found to be elevated at 14.7 on admission and is currently 16.[address] findings or consistent for right middle and lower lobe pneumonia. Patient has been receiving Zosyn Q6H, which was downgraded today to azithromycin 500 mg QD PO. Patient is on day #3 of 5 of antibiotic coverage Patient has remained afebrile during her stay #Anemia: -Pt found to be slightly anemic on admission. Patient does not have a history of known blood loss. -On admission patient noted to have Hemoglobin and Hematocrit of 8.6 and 31.1 respectively. Currently, her hemoglobin and hematocrit are 8.6 and 29.9 respectively, which appears to be her baseline. Low iron noted at 27, TIBC 435, Transferrin % saturation 7.8, Ferritin 25 -Supplement with ferrous sulfate 325 twice a day #Hyperkalemia: -Patient had recently been admitted for hypokalemia and was taking numerous medications which could advised to her current hyperkalemic state including spironolactone, potassium chloride, and potassium monoxide. -On admission patient had to be hyperkalemic at 6.9 - Currently 4.5 -Within normal limits after aggressive diuresis and holding home meds #Primary Adrenal Insufficiency: -Pt has hx of primary adrenal insufficiency and has had A.M. hypotension -Increase daily hydrocortisone to 20 mg AM and 10 mg PM #Hyponatremia: -Dilutional-Has resolved 2/2 diuresis #COPD: Patient has history of COPD, appears well controlled on DuoNeb and hydrocortisone. Continue albuterol/ipratropium 3 mL Continue hydrocodone 10 mg by mouth daily Continue Advair HFA 1 1521 #aFib: -Per , patient has history of aFib and EKG shows aFib on admission as well as on repeat EKG in the afternoon. Currently anticoagulated on Enoxaparin 30 mg and Aspirin 81 mg -While in hospital will receive teds and sequentials. #Hx of recurrent SVTs: Patient has history of recurrent SVTs. Rate control with diltiazem 180 mg by mouth twice a day. #Diabetes: Patient was placed on sliding scale -Start levemir insulin 10 units BID #Seizure disorder: Continue valproic acid. #History of GERD. Continue pantoprazole sodium 40 mg by mouth #Mild constipation: Continue docusate sodium 100 mg twice a day by mouth #Chronic back pain: Continue gabapentin 100 mg daily at bedtime by mouth #History of anxiety: Patient's history of anxiety and per patient's is anxious about her current health. Continue Buspirone HCl 5 mg twice a day by mouth #History of fall and fractures: Per , patient has had several falls in the past year with subsequent broken left wrist, injured right shoulder and broken right ribs. Patient on alendronate at home for likely osteoporosis. This medication was stopped on admission -Start vitamin D 2000 units daily by mouth Disposition: Patient continues to show significant improvement. Transferred to [facility] with telemetry today. Continue monitor for clinical improvement. VS,Fishbone, I+O VS, Fishbone, I+O Laboratory Tests 08/31/19 04:56 Vital Signs Date Time Temp Pulse Resp B/P (MAP) Pulse Ox O2 Delivery O2 Flow Rate FiO2 10/21/19 08:45 98 110/67 08/31/19 08:00 98.5 16 98 Room Air 08/29/19 08:00 1.0 I&O- Last 24 Hours up to 6 AM 08/31/19 05:59 Intake Total 1580 ml Output Total 1775 ml Balance -195 ml INDIRA CHOUDHURY OMS-3 Aug 31, 2019 16:50 YORDY CORNELIUS PGY-1 Aug 31, 2019 17:35
[2019-08-31] MEDS: GABAPENTIN 100 MG CAP PO SCH (21:25)
[2019-08-31] MEDS: **NOTE PATIENT COMMENT** MISC XX SCH (21:27)
[2019-08-31] MEDS: LEVEMIR (INSULIN DETEMIR) 1 UNITS/0.01ML SC SCH (21:27)
[2019-08-31 22:00] VITALS: BP 127/65
[2019-09-01] MEDS: IPRATROPIUM 0.5MG/ALBUTEROL 2.5MG INH SOL UD 3ML (DUONEB)(J7620) NEB SCH ×3 (02:00→13:35)
[2019-09-01 06:00] VITALS: BP 122/64
[2019-09-01 06:21] LABS: HEMOGLOBIN 8.6 g/dl (12.0-15.5); MEAN CORPUSCULAR HEMOGLOBIN 25.7 pg (27.0-33.0); MEAN CORPUSCULAR HGB CONC 29.7 g/dl (32.0-36.5); MEAN CORPUSCULAR VOLUME 86.6 fl (80.0-96.0); PLATELET COUNT, AUTOMATED 475 10^3/uL (150-450); RED BLOOD COUNT 3.35 10^6/uL (4.00-5.40); WHITE BLOOD COUNT 12.9 10^3/uL (4.0-10.0)
[2019-09-01 06:35] LABS: BLOOD UREA NITROGEN 25 MG/DL (7-18); CALCIUM LEVEL 7.9 MG/DL (8.8-10.2); CARBON DIOXIDE LEVEL 25 MEQ/L (21-32); CHLORIDE LEVEL 113 MEQ/L (98-107); CREATININE FOR GFR 0.56 MG/DL (0.55-1.30); GLOMERULAR FILTRATION RATE > 60.0 (>39); GLUCOSE, FASTING 165 MG/DL (70-100); POTASSIUM SERUM 3.9 MEQ/L (3.5-5.1); SODIUM LEVEL 143 MEQ/L (136-145)
[2019-09-01] MEDS: ADVAIR HFA 115/21MCG INHALER INH SCH (07:45)
[2019-09-01] MEDS: DOCUSATE SODIUM 100 MG CAP PO SCH (08:20)
[2019-09-01] MEDS: guaiFENesin ER 600 MG TAB PO SCH (08:21)
[2019-09-01] MEDS: VALPROIC ACID 250 MG CAP PO SCH (08:21)
[2019-09-01] MEDS: busPIRone 5 MG TAB PO SCH (08:21)
[2019-09-01] MEDS: FUROSEMIDE 40 MG TAB PO SCH (08:21)
[2019-09-01] MEDS: LEVEMIR (INSULIN DETEMIR) 1 UNITS/0.01ML SC SCH (08:21)
[2019-09-01] MEDS: HumaLOG INSULIN (NovoLOG) PER UNIT SC SCH ×2 (08:21→12:32)
[2019-09-01] MEDS: FERROUS SULFATE 325MG TAB PO SCH (08:21)
[2019-09-01] MEDS: VITAMIN D 1,000 INTERNATIONAL UNITS TABLET PO SCH (08:22)
[2019-09-01] MEDS: ASPIRIN 81 MG CHEW TABLET PO SCH (08:22)
[2019-09-01] MEDS: ENOXAPARIN 30 MG/0.3 ML SYR (J1650) SC SCH (08:22)
[2019-09-01] MEDS: LIDOCAINE 5% (LIDODERM) PATCH TOP SCH (08:22)
[2019-09-01] MEDS: HYDROCORTISONE 10 MG TAB PO SCH (08:22)
[2019-09-01 08:25] VITALS: BP 131/65
[2019-09-01] MEDS: diltiaZEM **CD** 180 MG CAP PO SCH (08:25)
[2019-09-01] MEDS ORDERED: AZITHROMYCIN 250 MG TAB PO SCH (09:00)
[2019-09-01] MEDS ORDERED: AZIT-12 PO (10:50)
[2019-09-01] MEDS ORDERED: FUROSEMIDE 40 MG TAB PO ONE (12:00)
[2019-09-01] MEDS ORDERED: CARD120C3 PO (13:22)
--- NOTE | 2019-09-01 15:13 | DS.PDOC ---
Discharge Summary General Date of Admission Aug 28, 2019 at 08:44 Date of Discharge 09/01/2019 Primary Care Physician: Jr Caicedo Collins Discharge Summary PROCEDURES PERFORMED DURING STAY: None ADMITTING DIAGNOSES: SOB likely 2/2 CHF exacerbation JUAN CARLOS Lactic Acidosis Leukocytosis Anemia Hyperkalemia Hyponatremia COPD aFib Hx of recurrent SVTs Diabetes Seizure disorder History of GERD Mild constipation Chronic back pain History of anxiety History of fall and fractures DISCHARGE DIAGNOSES: Leukocytosis Anemia Hyperkalemia Hyponatremia COPD aFib Hx of recurrent SVTs Diabetes Seizure disorder History of GERD Mild constipation Chronic back pain History of anxiety History of fall and fractures COMPLICATIONS/CHIEF COMPLAINT: Hyperkalemia. HISTORY OF PRESENT ILLNESS: Ms. Solano is a 74-year-old female with a past medical history significant for HFpEF, COPD, diabetes, CAD with NSTEMI, A. fib, GERD, and SVTs who presents to the ER today with the chief complaint of shortness of breath. When asked about her symptoms she couldn't elaborate due to severe shortness of breath and simply stated that she cannot breathe. Per her , patient has been experiencing shortness of breath for years with noticeable progressively worsening symptoms in the past several months. He states that last night, Laura was unable to leave her bed to use the bathroom and required her 's assistance to ambulate due to her severe shortness of breath. He states that her severe dyspnea along with the presence of new onset crackles prompted him to take her to the ER. Per her , patient requires use of inclined hospital bed to sleep at night and admits that the patient suffers from PND, HOUSER and nonproductive cough. He also states worsening of his 's lower extremity edema. Per her , the patient also recently had a cervical fusion surgery which has required PT and OT therapy over the past month. Patient denies recent fever, chills, nausea, vomiting, recent respiratory infection. Patient's denies daily weight measurements at home. Per , patient has no known history of kidney pathology. However patient appears to have recent onset JUAN CARLOS. Per , patient has not had melena, hematochezia, or any known source of bleed. However patient was found to be anemic upon admission. HOSPITAL COURSE: Upon admission Ms. Solano presented with severe shortness of breath, acute kidney injury, lactic acidosis, possible aspiration pneumonia/CAP with leukocytosis and hyperkalemia. Her breathing improved with aggressive di uresis, which resolved her hypervolemic state. This had the beneficiary effect of reducing her cardiorenal syndrome which improved her GFR, creatinine, and BUN/creatinine ratio. Upon admission she was noted to have right middle and lower lobe infiltrates consistent with possible pneumonia and was placed on Zosyn and IV azithromycin. Her leukocytosis has trended down during her stay and is currently near normal at 12.9. She has remained afebrile during her stay. During her stay, patient was noted to have A.M. hypotensive episodes suggesting etiology related to her primary adrenal insufficiency. Her hydrocortisone dose was increased to 20 in the a.m. and 10 PM as well as given 100 mg 1 time dose, which showed a temporary BP and HR lowering effect. This effect did not last however so her Diltiazem dose was again increased to 240 mg PO BID. Her Azithromycin was switched to 500 mg PO QD for a 3 day course and her IV Furosemide was switched to PO Furosemide 40 mg. DISCHARGE MEDICATIONS: Please see below. ALLERGIES: Please see below. PHYSICAL EXAMINATION ON DISCHARGE: VITAL SIGNS: Please see below. General: Patient appeared alert and comfortable sitting up in a chair eating breakfast, in no acute distress. HEENT: Pupils respond to light and are equal. No scleral icterus noted. Atra umatic. Trachea midline. No JVD. Lungs: Mild expiratory stridor and wheezes noted in all airfields. No crackles noted Heart: Irregular irregular heartbeat noted. Normal S1 and S2. No rubs or gallops noted Abdomen: Normal abdominal sounds noted in all 4 quadrants. No organomegaly, bruits, or distension noted. No guarding or rebound tenderness. No Jaundice noted. No pain or tenderness to palpation noted Extremities: Trace edema noted in LE B/L. No rashes, wounds, weeping sores noted. No significant muscle atrophy noted. Neuro: No focal deficits noted noted. Muscle strength 5/5 in LE and UE flexion and extension. Skin: No rashes, bruising, ulcerations noted LABORATORY DATA: Please see below. IMAGING: CXR 08/28: Cardiomegaly and prominent interstitial markings with vascular congestion consistent with CHF. Chest CT 08/28: There is evidence of right lower and right middle lobe pneumonia . Small right pleural effusion, which has developed since the last exam Echocardiogram 08/29: CONCLUSIONS: 1. Study is of acceptable technical quality. 2. Normal LV size with mild left ventricular hypertrophy (LVH) and hyperdynamic LV systolic function. 3. Approximately moderate calcific aortic stenosis. 4. [id number] mitral insufficiency. 5. Likely elevated central venous pressure and at least moderate pulmonary hypertension. CXR 08/31: Persistent right pulmonary opacities consistent with multifocal pneumonitis. PROGNOSIS: fair ACTIVITY: As tolerated DIET: 2 gram sodium diet DISCHARGE PLAN: Follow up with recommendations from LUDIN CRENSHAW. - Return to the ER if you experience any problems DISPOSITION: 62 D/T Rehab Facility. DISCHARGE INSTRUCTIONS: 1. Needs to follow-up with PCP in 7-10 days and nephrology 1 week from discharge from rehab unit DISCHARGE CONDITION: Stable. TIME SPENT ON DISCHARGE: Greater than 60 minutes. Vital Signs/I&Os Vital Signs Date Time Temp Pulse Resp B/P (MAP) Pulse Ox O2 Delivery O2 Flow Rate FiO2 09/01/19 08:25 107 131/65 09/01/19 06:00 97.8 21 97 Room Air 08/29/19 08:00 1.0 I&O- Last 24 Hours up to 6 AM 09/01/19 06:00 Intake Total 720 ml Output Total 500 ml Balance 220 ml Laboratory Data Labs 24H Laboratory Tests 2 08/31/19 16:59: Bedside Glucose (Misc Panel) 257H 08/31/19 20:30: Bedside Glucose (Misc Panel) 190H 09/01/19 05:39: Nucleated Red Blood Cells % (auto) 0.2H, Anion Gap 5L, Glomerular Filtration Rate > 60.0, Calcium Level 7.9L 09/01/19 12:25: Bedside Glucose (Misc Panel) 234H CBC/BMP Laboratory Tests 09/01/19 05:39 FSBS Laboratory Tests Test 08/31/19 16:59 08/31/19 20:30 09/01/19 12:25 Range/Units Bedside Glucose (Misc Panel) 257 190 234 83-110 MG/DL Microbiology Microbiology 08/28/19 Blood Culture - Preliminary, Resulted No Growth after 72 hours. All specime... 08/28/19 Blood Culture - Preliminary, Resulted No Growth after 72 hours. All specime... Discharge Medications Scheduled Alendronate Sodium (Alendronate Sodium) 70 Mg Tablet, 70 MG PO QWEEK, (Reported) SATURDAY Amiodarone HCl (Amiodarone HCl) 200 Mg Tablet, 200 MG PO 3XW, (Reported) SATURDAY, SATURDAY AND SATURDAY Aspirin (Aspirin) 81 Mg Tab.chew, 81 MG PO DAILY, (Reported) Azithromycin (Azithromycin) 250 Mg Tablet, 500 MG PO DAILY Take 2 tabs once a day for 3 days Buspirone HCl (Buspirone HCl) 5 Mg Tablet, 5 MG PO BID, (Reported) Calcium Carbonate/Vitamin D3 (Calcium 600 + Vit D 400 Softgl) 1 Each Capsule, 1 CAP PO DAILY, (Reported) Cholecalciferol (Vitamin D3) (Vitamin D3) 2,000 Unit Tablet, 2,000 UNIT PO DAILY, (Reported) Cyanocobalamin (Vitamin B-12) (Vitamin B-12) 100 Mcg Tablet, 100 MCG PO DAILY, (Reported) Diltiazem Hcl (Cardizem Cd) 120 Mg Cap.er.24h, 240 MG PO BID Ferrous Sulfate (Ferrous Sulfate) 325 Mg Tablet, 325 MG PO BID, (Reported) Fluticasone Propionate (Fluticasone Propionate) 16 Gm [place].susp, 1 SPRAY NA DAILY, (Reported) Furosemide (Furosemide) 40 Mg Tablet, 40 MG PO DAILY, (Reported) Gabapentin (Gabapentin) 100 Mg Capsule, 100 MG PO QHS, (Reported) Hydrocortisone (Hydrocortisone) 10 Mg Tablet, 20 MG PO BID, (Reported) Lactose-Reduced Food (Ensure Liquid) 237 Ml Liquid, 120 ML PO BID, (Reported) Lidocaine (Lidocaine) 5% Adh..patch, 1 PATCH TOP DAILY, (Reported) APPLIES TO LOWER BACK Magnesium Oxide (Magnesium Oxide) 400 Mg Tablet, 400 MG PO BID, (Reported) Melatonin (Melatonin) 5 Mg Capsule, 5 MG PO QHS, (Reported) Metformin HCl (Metformin HCl) 500 Mg Tablet, 1,000 MG PO BID, (Reported) Pantoprazole Sodium (Pantoprazole Sodium) 40 Mg Tablet.dr, 40 MG PO Q2D, (Reported) Polyethylene Glycol 3350 (Miralax) 119 Gm Powder, 17 GM PO DAILY, (Reported) Salmeterol/Fluticasone (Advair 250-50 Diskus) 1 Each Blst.w.dev, 1 PUFF INH BID, (Reported) Umeclidinium [place] (Incruse Ellipta) 62.5 Mcg Blst.w.dev, 1 PUFF INH QHS, (Reported) Valproic Acid (Depakene) 250 Mg Cap, 250 MG PO TID, (Reported) 1000, 1600, 2200 Scheduled PRN Acetaminophen (Acetaminophen) 500 Mg Tablet, 500 MG PO Q4H PRN for PAIN, (Reported) Allergies Coded Allergies: propoxyphene (Verified Allergy, Intermediate, hives, 08/28/19) INDIRA CHOUDHURY OMS-3 Sep 01, 2019 15:13 YORDY CORNELIUS PGY-1 Sep 01, 2019 15:45 SALVADOR LANGFORD MD Sep 01, 2019 16:38
== END 2019-09-01 13:57 | DRG 177 ==
LOC: M ED 04:47 → M ED INP 08:44 → M PCU 14:16 → M ICU 08-29 03:35 → M MSPAV 08-31 15:06
PROVIDERS: ADMIT Internal Medicine; ATTEND Internal Medicine
DX: J69.0 Pneumonitis due to inhalation of food and vomit (principal); I50.33 Acute on chronic diastolic (congestive) heart failure; N17.9 Acute kidney failure, unspecified; E87.1 Hypo-osmolality and hyponatremia; E87.2 Acidosis; E27.40 Unspecified adrenocortical insufficiency; I47.1 Supraventricular tachycardia; J44.1 Chronic obstructive pulmonary disease with (acute) exacerbation; I48.20 Chronic atrial fibrillation, unspecified; I11.0 Hypertensive heart disease with heart failure; E87.5 Hyperkalemia; K59.00 Constipation, unspecified; D72.829 Elevated white blood cell count, unspecified; E11.9 Type 2 diabetes mellitus without complications; F41.9 Anxiety disorder, unspecified; G40.909 Epilepsy, unspecified, not intractable, without status epilepticus; K21.9 Gastro-esophageal reflux disease without esophagitis; M54.5 Low back pain; Z79.82 Long term (current) use of aspirin; Z79.899 Other long term (current) drug therapy; Z88.8 Allergy status to other drugs, medicaments and biological substances; I25.2 Old myocardial infarction; I25.10 Atherosclerotic heart disease of native coronary artery without angina pectoris; R26.89 Other abnormalities of gait and mobility; G47.33 Obstructive sleep apnea (adult) (pediatric); R29.6 Repeated falls; E83.42 Hypomagnesemia; D50.9 Iron deficiency anemia, unspecified

== ENCOUNTER 2019-09-01 12:55 | Inpatient (IN) | payer MEDICARE ==
[~2019-09-01] VITALS: Ht 154.9 cm; Wt 55.8 kg
[~2019-09-01 12:55] MED LIST changes: +AMIO200T40 PO; +CARD180C4 PO; +FERR1TAB8 PO; +FERR325T3 PO; -SIMV10TA2 PO; +SIMV10TA21 PO
[2019-09-01] MEDS ORDERED: CARD120C3 PO (13:22)
[2019-09-01 14:00] VITALS: BP 116/63
[2019-09-01] MEDS ORDERED: DEXTROSE 50% 50 ML SYRINGE IV PRN (17:15)
[2019-09-01] MEDS ORDERED: GLUCAGON FOR INJ 1 MG VIAL (J1610) SC PRN (17:15)
[2019-09-01] MEDS ORDERED: BISACODYL 10 MG SUPP PR PRN (17:15)
[2019-09-01] MEDS ORDERED: IPRATROPIUM 0.5MG/ALBUTEROL 2.5MG INH SOL UD 3ML (DUONEB)(J7620) NEB PRN (17:15)
[2019-09-01] MEDS ORDERED: GLUCOSE 4 GM CHEW TABLET PO PRN (17:15)
[2019-09-01] MEDS ORDERED: CEPACOL LOZENGE PO PRN (17:15)
[2019-09-01] MEDS: SUCRALFATE SUSP 1GM/10ML UD PO SCH ×2 (17:30→20:32)
[2019-09-01] MEDS: HumaLOG INSULIN (NovoLOG) PER UNIT SC SCH ×2 (18:08→20:06)
[2019-09-01 20:00] VITALS: BP 113/71
[2019-09-01] MEDS: ADVAIR HFA 115/21MCG INHALER INH SCH (20:30)
[2019-09-01] MEDS: IPRATROPIUM 0.5MG/ALBUTEROL 2.5MG INH SOL UD 3ML (DUONEB)(J7620) NEB SCH (20:30)
[2019-09-01] MEDS: SENNA 8.6 MG TAB (SENOKOT) PO SCH (20:32)
[2019-09-01] MEDS: DOCUSATE SODIUM 100 MG CAP PO SCH (20:32)
[2019-09-01] MEDS: FERROUS GLUCONATE 324 MG TAB PO SCH (20:32)
[2019-09-01] MEDS: GABAPENTIN 100 MG CAP PO SCH (20:33)
[2019-09-01] MEDS: busPIRone 5 MG TAB PO SCH (20:33)
[2019-09-01] MEDS: LEVEMIR (INSULIN DETEMIR) 1 UNITS/0.01ML SC SCH (20:33)
[2019-09-01] MEDS: traZODone 25MG PER 1/2 TABLET PO PRN (20:33)
[2019-09-01] MEDS: VALPROIC ACID 250 MG CAP PO SCH (20:33)
[2019-09-01] MEDS: guaiFENesin ER 600 MG TAB PO SCH (20:33)
[2019-09-01] MEDS: HYDROCORTISONE 10 MG TAB PO SCH (20:33)
[2019-09-01] MEDS: **NOTE PATIENT COMMENT** MISC XX SCH (20:34)
[2019-09-01] MEDS ORDERED: ADVAIR HFA 230/21MCG INHALER INH SCH (21:00)
[2019-09-02] MEDS: ACETAMINOPHEN TAB 650MG DOSE (2X325MG) PO PRN ×2 (01:10→23:48)
[2019-09-02] MEDS: IPRATROPIUM 0.5MG/ALBUTEROL 2.5MG INH SOL UD 3ML (DUONEB)(J7620) NEB SCH ×4 (01:55→18:09)
[2019-09-02 05:45] VITALS: BP 108/69
[2019-09-02 06:50] LABS: BASO # 0.1 10^3/uL (0.0-0.2); BASO % 0.7 % (0.0-1.0); EOS # 0.1 10^3/uL (0.0-0.5); EOS % 0.7 % (0.0-3.0); HEMATOCRIT 33.8 % (36.0-47.0); HEMOGLOBIN 10.1 g/dl (12.0-15.5); LYMPH # 2.6 10^3/uL (1.5-5.0); LYMPH % 21.4 % (24.0-44.0); MEAN CORPUSCULAR HEMOGLOBIN 25.7 pg (27.0-33.0); MEAN CORPUSCULAR HGB CONC 29.9 g/dl (32.0-36.5); MONO # 1.6 10^3/uL (0.0-0.8); MONO % 12.7 % (0.0-5.0); NEUTROPHILS # 7.5 10^3/uL (1.5-8.5); NEUTROPHILS % 60.8 % (36.0-66.0); PLATELET COUNT, AUTOMATED 503 10^3/uL (150-450); RED BLOOD COUNT 3.93 10^6/uL (4.00-5.40); WHITE BLOOD COUNT 12.3 10^3/uL (4.0-10.0)
[2019-09-02 07:24] LABS: ALBUMIN 2.3 GM/DL (3.2-5.2); ALT/SGPT 37 U/L (12-78); BILIRUBIN,TOTAL 0.2 MG/DL (0.2-1.0); BLOOD UREA NITROGEN 22 MG/DL (7-18); CALCIUM LEVEL 8.1 MG/DL (8.8-10.2); CARBON DIOXIDE LEVEL 27 MEQ/L (21-32); CHLORIDE LEVEL 105 MEQ/L (98-107); CREATININE FOR GFR 0.65 MG/DL (0.55-1.30); GLOMERULAR FILTRATION RATE > 60.0 (>39); GLUCOSE, FASTING 168 MG/DL (70-100); POTASSIUM SERUM 3.8 MEQ/L (3.5-5.1); SODIUM LEVEL 139 MEQ/L (136-145); TOTAL PROTEIN 6.1 GM/DL (6.4-8.2)
[2019-09-02] MEDS: SUCRALFATE SUSP 1GM/10ML UD PO SCH ×4 (07:44→21:25)
[2019-09-02] MEDS: HumaLOG INSULIN (NovoLOG) PER UNIT SC SCH ×4 (07:44→21:00)
[2019-09-02] MEDS: ADVAIR HFA 115/21MCG INHALER INH SCH ×2 (08:03→18:09)
[2019-09-02] MEDS ORDERED: AMIODARONE 100MG TABLET (PACERONE) PO SCH (09:00)
[2019-09-02] MEDS: LIDOCAINE 5% (LIDODERM) PATCH TD SCH (09:46)
[2019-09-02] MEDS: DOCUSATE SODIUM 100 MG CAP PO SCH ×2 (09:47→21:25)
[2019-09-02] MEDS: ENOXAPARIN 40 MG/0.4 ML SYRINGE (J1650) SC SCH (09:47)
[2019-09-02] MEDS: LEVEMIR (INSULIN DETEMIR) 1 UNITS/0.01ML SC SCH ×2 (09:48→21:29)
[2019-09-02] MEDS: PANTOPRAZOLE 40MG TAB (PROTONIX) PO SCH (09:48)
[2019-09-02] MEDS: guaiFENesin ER 600 MG TAB PO SCH ×2 (09:48→21:29)
[2019-09-02] MEDS: FERROUS GLUCONATE 324 MG TAB PO SCH ×2 (09:48→21:25)
[2019-09-02] MEDS: VITAMIN D 1,000 INTERNATIONAL UNITS TABLET PO SCH (09:48)
[2019-09-02] MEDS: HYDROCORTISONE 10 MG TAB PO SCH ×2 (09:48→21:29)
[2019-09-02] MEDS: FUROSEMIDE 40 MG TAB PO SCH (09:49)
[2019-09-02] MEDS: ASPIRIN 81 MG CHEW TABLET PO SCH (09:49)
[2019-09-02] MEDS: AZITHROMYCIN 250 MG TAB PO SCH (09:50)
[2019-09-02] MEDS: VALPROIC ACID 250 MG CAP PO SCH ×3 (09:52→21:25)
[2019-09-02] MEDS: busPIRone 5 MG TAB PO SCH ×2 (09:52→21:25)
[2019-09-02 14:00] VITALS: BP 118/76
--- NOTE | 2019-09-02 14:14 | HPEPDOC ---
Interlibrary Loan Specialist Note DATE OF ADMISSION: 09-01-19 SOURCE OF ADMISSION INFORMATION: [facility] records and patient CHIEF COMPLAINT: CHF exacerbation HISTORY OF PRESENT ILLNESS: 74F pmh COPD, CAD with NSTEMI, A fib, GERD, SVTs, diastolic CHF, adrenal insufficiency, Seizure disorder, DANIAL, Anxiety who presented to [facility] ED on 08-28-19 with worsening shortness of breath and leg swelling reporting worsening symptoms over the past few months. She was admitted for a CHF exac erbation with CXR showing, prominent interstitial markings with vascular congestion consistent with CHF. CT chest showed, right lower and right middle lobe pneumoniacannot rule out the possibility of neoplastic change. Patient was diuresed and started on antibiotics, with blood cultures coming back negative. She was found to be in Afib and her diltiazem dose was ultimately increased. She also received an extra dose of hydrocortisone out of concern for adrenal insufficiency and she was started on Florinef then later stopped. She had electrolyte imbalances with JUAN CARLOS for which nephrology was consulted and her Cardiorenal syndrome gradually improved. She was evaluated by therapy and noted to be below her prior level of function for mobility and ADLs and deemed appropriate for discharge to ARU on 09-01-19. REVIEW OF SYSTEMS: The following is a completed review of systems and has been reviewed. Review of systems otherwise unremarkable. PAIN: Patient self reports throat pain EYES: No recent vision changes EARS, NOSE, & THROAT: +throat pain- no dysphagia, or rhinorrhea. CARDIOVASCULAR: Denies chest pain or palpitations PULMONARY: Denies shortness of breath at rest GASTROINTESTINAL: Denies constipation/diarrhea GENITOURINARY: denies dysuria MUSCULOSKELETAL: cervical stenosis NEUROLOGICAL: +seizure hx HEMATOLOGICAL: no easy bruing SKIN: no rash PSYCHIATRIC: Unremarkable All other review of systems found to be negative. PAST MEDICAL HISTORY: as per HPI PAST SURGICAL HISTORY: Cervical fusion June 2019 Hysterectomy ALLERGIES: Please see below. MEDICATIONS: Please see below. FAMILY HISTORY: COPD, DM, prostate cancer SOCIAL HISTORY: former smoker, 75pack year, stopped June 2019, recovering al coholic, last drink 40 years ago DIET: low salt with fluid restrict 1800cc PHYSICAL EXAMINATION: VITAL SIGNS: Please see below. GENERAL: Pleasant and cooperative. No acute distress. HEENT: PERRL. Extraocular movements intact. Clear conjunctiva CARDIOVASCULAR: Irregular rate and rhythm. No murmurs, rubs, or gallops LUNGS: diminished lung sounds, No wheezes. + rhonchi ABDOMEN: Soft, nontender, nondistended. Positive bowel sounds. Normal active bowel sounds NEUROLOGICAL: Alert and oriented times three. Cranial nerves II through XII grossly intact. Sensation grossly intact EXTREMITIES: 5\5 strength left upper extremities. 5/5 right elbow flexion/extension, wrist extension, website optimization strategist, 3/5 abduction (limited due to arthritis) 5\5 strength right lower extremity. 5/5 strength in left lower extremity. SKIN: small protuberance on back of left thigh LABORATORY DATA: Please see below. IMAGING:Imaging documentation personally reviewed by record FUNCTIONAL STATUS: Premorbid: Independent with all activities of daily life as well as mobility On Admission: Contact guard-Minimum assistance for bathing, upper body dressing, bed chair and wheelchair transfers, toilet transfers, ambulation. GOALS: Mod-I community distances, stairs, uneven terrain, functional transfers, bathing, dressing, toileting, medical optimization ASSESSMENT:74-year-old F with past medical history of COPD, diastolic CHF, Afib who presents status post CHF exacerbation PLAN: 1. Rehab: PT- strengthen/stretch/improve ROM bilat LE, teach energy conservation techniques OT- strengthen/stretch/improve ROM bilat UE, focus on right shoulder exercises, optimize ADL management 2. Neuro: pmh seizures- c/u Valproic Acid 3. CArdio: pmh Afib with SVTs, CAD with NSTEMI, diastolic CHF- c/u Amiodarone, Diltiazem, Lasix, and ASA- patient currently not on anticoagulation, has no hx of bleeding, will confirm with her sharepoint web developer Jacobo if ok to start AC while on ARU, patient reporting she has fallen twice this year due to cervical stenosis and shortness of breath -medicine consulted to assist in management 4. Resp: pneumonia- c/u Azithromycin, Advair, Mucinex, and Duonebs 5. Endo: pmh DM c/u insulin -adrenal insufficiency- on oral steroids 6. renal: recent JUAN CARLOS which resolved, will monitor 7. DVT ppx: Lovenox and teds 8. GI ppx: protonix q2d, will add sucralfate while on steroids 9. Ortho: recent cervical stenosis s/p decompression and fusion June 2019 with bilat UE weakness- will address in therapy -c/u gabapentin 100qHS 10. Psych- Buspar 5mg BID for anxiety and trazodone prn qHS for insomnia 11. - monitor PVRs 12. Dispo: TBD POST ADMISSION PHYSICIAN EVALUATION: Medical and functional status: Description of medical status, medical assessment: As above. Rehabilitation diagnosis and current and prior cold morbid medical conditions as above. Risk of complications and plans to mitigate them as above. Description of functional status current status is as above. Prior status as above. Status compared to preadmission: There are no clinically significant differences between the patient's current status and the information described on the preadmission screening document. Treatment plan anticipated: Treatment plan is as described above. Required disciplines including physical therapy, occupational therapy, others as noted above. Intensity of services: 3 hours a day, 6 days a week. Special considerations: There are no specific special or safety considerations that would likely preclude immediate implementation of an intensive rehabilitation program or subsequently influence the plan of care. ATTESTATION: Considering all the information above, it is my best judgment that this patient requires intensive rehabilitation therapy as described above and an inpatient hospital environment due to the complexity of nursing, medical, and rehabilitation needs required by the patient. Furthermore, this patient can reasonably be expected to participate in an benefit from an inpatient rehabilitation stay with an interdisciplinary team approach to the delivery of rehabilitation care under the direction and supervision of rehabilitation physician. PROGNOSIS: Excellent ESTIMATED LENGTH OF STAY:12-14 days. PROJECTED DISCHARGE DESTINATION: Home with family support and any durable medical equipment required to increase functional safety and mobility TIME SPENT COUNSELING AND COORDINATING INITIAL CARE: Greater than 70 minutes. Vital Signs Vital Sign - Last 24 Hours 09/01/19 09/01/19 09/01/19 09/02/19 14:00 20:00 20:34 05:45 Temp 97.1 98.1 97.5 Pulse 96 119 119 114 Resp 19 18 18 B/P (MAP) 116/63 (80) 113/71 (85) 113/71 108/69 (82) Pulse Ox 99 98 97 O2 Delivery Room Air Room Air Room Air 09/02/19 09:49 Pulse 114 B/P (MAP) 112/69 Laboratory Data CBC/BMP Laboratory Tests 09/02/19 06:39 Labs 24H Laboratory Tests 2 09/01/19 19:46: Bedside Glucose (Misc Panel) 224H 09/02/19 05:41: Bedside Glucose (Misc Panel) 158H 09/02/19 06:39: Immature Granulocyte % (Auto) 3.7H, Neutrophils (%) (Auto) 60.8, Lymphocytes (%) (Auto) 21.4L, Monocytes (%) (Auto) 12.7H, Eosinophils (%) (Auto) 0.7, Basophils (%) (Auto) 0.7, Neutrophils # (Auto) 7.5, Lymphocytes # (Auto) 2.6, Monocytes # (Auto) 1.6H, Eosinophils # (Auto) 0.1, Basophils # (Auto) 0.1, Nucleated Red Blood Cells % (auto) 0.0, Anion Gap 7L, Glomerular Filtration Rate > 60.0, Calcium Level 8.1L, Total Bilirubin 0.2, Aspartate Amino Transf (AST/SGOT) 9, Alanine Aminotransferase (ALT/SGPT) 37, Alkaline Phosphatase 70, Total Protein 6.1L, Albumin 2.3L, Albumin/Globulin Ratio 0.61L 09/02/19 11:43: Bedside Glucose (Misc Panel) 119H FSBS Laboratory Tests Test 09/01/19 19:46 09/02/19 05:41 09/02/19 11:43 Range/Units Bedside Glucose (Misc Panel) 224 158 119 83-110 MG/DL Home Medications Scheduled Alendronate Sodium (Alendronate Sodium) 70 Mg Tablet, 70 MG PO QWEEK, (Reported) SATURDAY Amiodarone HCl (Amiodarone HCl) 200 Mg Tablet, 200 MG PO 3XW, (Reported) SATURDAY, SATURDAY AND SATURDAY Aspirin (Aspirin) 81 Mg Tab.chew, 81 MG PO DAILY, (Reported) Azithromycin (Azithromycin) 250 Mg Tablet, 500 MG PO DAILY Take 2 tabs once a day for 3 days Buspirone HCl (Buspirone HCl) 5 Mg Tablet, 5 MG PO BID, (Reported) Calcium Carbonate/Vitamin D3 (Calcium 600 + Vit D 400 Softgl) 1 Each Capsule, 1 CAP PO DAILY, (Reported) Cholecalciferol (Vitamin D3) (Vitamin D3) 2,000 Unit Tablet, 2,000 UNIT PO DAILY, (Reported) Cyanocobalamin (Vitamin B-12) (Vitamin B-12) 100 Mcg Tablet, 100 MCG PO DAILY, (Reported) Diltiazem Hcl (Cardizem Cd) 120 Mg Cap.er.24h, 240 MG PO BID Ferrous Sulfate (Ferrous Sulfate) 325 Mg Tablet, 325 MG PO BID, (Reported) Fluticasone Propionate (Fluticasone Propionate) 16 Gm [place].susp, 1 SPRAY NA DAILY, (Reported) Furosemide (Furosemide) 40 Mg Tablet, 40 MG PO DAILY, (Reported) Gabapentin (Gabapentin) 100 Mg Capsule, 100 MG PO QHS, (Reported) Hydrocortisone (Hydrocortisone) 10 Mg Tablet, 20 MG PO BID, (Reported) Lactose-Reduced Food (Ensure Liquid) 237 Ml Liquid, 120 ML PO BID, (Reported) Lidocaine (Lidocaine) 5% Adh..patch, 1 PATCH TOP DAILY, (Reported) APPLIES TO LOWER BACK Magnesium Oxide (Magnesium Oxide) 400 Mg Tablet, 400 MG PO BID, (Reported) Melatonin (Melatonin) 5 Mg Capsule, 5 MG PO QHS, (Reported) Metformin HCl (Metformin HCl) 500 Mg Tablet, 1,000 MG PO BID, (Reported) Pantoprazole Sodium (Pantoprazole Sodium) 40 Mg Tablet.dr, 40 MG PO Q2D, (Reported) Polyethylene Glycol 3350 (Miralax) 119 Gm Powder, 17 GM PO DAILY, (Reported) Salmeterol/Fluticasone (Advair 250-50 Diskus) 1 Each Blst.w.dev, 1 PUFF INH BID, (Reported) Umeclidinium [place] (Incruse Ellipta) 62.5 Mcg Blst.w.dev, 1 PUFF INH QHS, (Reported) Valproic Acid (Depakene) 250 Mg Cap, 250 MG PO TID, (Reported) 1000, 1600, 2200 Scheduled PRN Acetaminophen (Acetaminophen) 500 Mg Tablet, 500 MG PO Q4H PRN for PAIN, (Reported) Allergies Coded Allergies: propoxyphene (Verified Allergy, Intermediate, hives, 08/28/19) A-FIB/CHADSVASC A-FIB History Current/History of A-Fib/PAF?: Yes Current PO Anticoag Therapy: No HANH KUMAR MD Sep 02, 2019 14:14
--- NOTE | 2019-09-02 14:17 | IPNPDOC ---
PM&R Progress Note DATE OF SERVICE: Sep 02, 2019 [employer] Progress Note Subjective: Patient reporting she feels ok today and that she wants to get home as soon as she can. She denies any chest pain or palpitations. She states she has never been on a blood thinner for her Afib. REVIEW OF SYSTEMS: The following is a completed review of systems and has been reviewed. Review of systems otherwise unremarkable. PAIN: Patient self reports throat pain EYES: No recent vision changes EARS, NOSE, & THROAT: +throat pain- no dysphagia, or rhinorrhea. CARDIOVASCULAR: Denies chest pain or palpitations PULMONARY: Denies shortness of breath at rest GASTROINTESTINAL: Denies constipation/diarrhea GENITOURINARY: denies dysuria MUSCULOSKELETAL: cervical stenosis NEUROLOGICAL: +seizure hx HEMATOLOGICAL: no easy bruising SKIN: no rash PSYCHIATRIC: Unremarkable All other review of systems found to be negative. PHYSICAL EXAMINATION: VITAL SIGNS: Please see below. GENERAL: Pleasant and cooperative. No acute distress. HEENT: PERRL. Extraocular movements intact. Clear conjunctiva CARDIOVASCULAR: Irregular rate and rhythm. No murmurs, rubs, or gallops LUNGS: diminished lung sounds, No wheezes. + rhonchi ABDOMEN: Soft, nontender, nondistended. Positive bowel sounds. Normal active bowel sounds NEUROLOGICAL: Alert and oriented times three. Cranial nerves II through XII grossly intact. Sensation grossly intact EXTREMITIES: 5\5 strength left upper extremities. 5/5 right elbow flexion/extension, wrist extension, chemical analyst, 3/5 abduction (limited due to arthritis) 5\5 strength right lower extremity. 5/5 strength in left lower extremity. SKIN: small protuberance on back of left thigh ASSESSMENT:74-year-old F with past medical history of COPD, diastolic CHF, Afib who presents status post CHF exacerbation PLAN: 1. Rehab: PT- strengthen/stretch/improve ROM bilat LE, teach energy conservation techniques OT- strengthen/stretch/improve ROM bilat UE, focus on right shoulder exercises, optimize ADL management 2. Neuro: pmh seizures- c/u Valproic Acid 3. CArdio: pmh Afib with SVTs, CAD with NSTEMI, diastolic CHF- c/u Amiodarone, Diltiazem, Lasix, and ASA- patient currently not on anticoagulation, has no hx of bleeding, will confirm with her full stack net developer Saleska if ok to start AC while on ARU, patient reporting she has fallen twice this year due to cervical stenosis and shortness of breath -fluid restrict to 1800cc -medicine consulted to assist in management 4. Resp: pneumonia- c/u Azithromycin, Advair, Mucinex, and Duonebs -recent CT +for infiltrate, however per record cannot rule out neoplasm- to be followed by PMD 5. Endo: pmh DM c/u insulin -adrenal insufficiency- on oral steroids 6. renal: recent JUAN CARLOS which resolved, will monitor 7. DVT ppx: Lovenox and teds 8. GI ppx: protonix q2d, will add sucralfate while on steroids 9. Ortho: recent cervical stenosis s/p decompression and fusion June 2019 with bilat UE weakness- will address in therapy -c/u gabapentin 100qHS 10. Psych- Buspar 5mg BID for anxiety and trazodone prn qHS for insomnia 11. - monitor PVRs 12. Dispo: TBD Allergies Coded Allergies: propoxyphene (Verified Allergy, Intermediate, hives, 08/28/19) Vital Signs Vital Signs Date Time Temp Pulse Resp B/P (MAP) Pulse Ox O2 Delivery O2 Flow Rate FiO2 09/02/19 09:49 114 112/69 09/02/19 05:45 97.5 18 97 Room Air Laboratory Data CBC/BMP Laboratory Tests 09/02/19 06:39 Labs 24H Laboratory Tests 2 09/01/19 19:46: Bedside Glucose (Misc Panel) 224H 09/02/19 05:41: Bedside Glucose (Misc Panel) 158H 09/02/19 06:39: Immature Granulocyte % (Auto) 3.7H, Neutrophils (%) (Auto) 60.8, Lymphocytes (%) (Auto) 21.4L, Monocytes (%) (Auto) 12.7H, Eosinophils (%) (Auto) 0.7, Basophils (%) (Auto) 0.7, Neutrophils # (Auto) 7.5, Lymphocytes # (Auto) 2.6, Monocytes # (Auto) 1.6H, Eosinophils # (Auto) 0.1, Basophils # (Auto) 0.1, Nucleated Red Blood Cells % (auto) 0.0, Anion Gap 7L, Glomerular Filtration Rate > 60.0, Calcium Level 8.1L, Total Bilirubin 0.2, Aspartate Amino Transf (AST/SGOT) 9, Alanine Aminotransferase (ALT/SGPT) 37, Alkaline Phosphatase 70, Total Protein 6.1L, Albumin 2.3L, Albumin/Globulin Ratio 0.61L 09/02/19 11:43: Bedside Glucose (Misc Panel) 119H Current Medications Current Medications Current Medications Medications (Trade) Dose Ordered Sig/Steven Route PRN Reason Start Time Stop Time Status Last Admin Dose Admin Acetaminophen (Tylenol Tab) 650 mg Q4HP PRN PO MILD PAIN (PS 1-4) 09/01/19 17:15 09/02/19 01:10 Albuterol/ Ipratropium (Duoneb (Ipr 0.5mg/Alb 2.5mg)) 3 ml Q2HP PRN NEB SOB/WHEEZING 09/01/19 17:15 Albuterol/ Ipratropium (Duoneb (Ipr 0.5mg/Alb 2.5mg)) 3 ml RQ6H NEB 09/01/19 20:00 09/01/19 20:30 Amiodarone HCl (Pacerone, Cordarone) 200 mg MoWeFr@0900 PO 09/02/19 09:00 09/02/19 09:49 DC Amiodarone HCl (Pacerone, Cordarone) 200 mg MoWeFr@0900 PO 09/02/19 09:49 Aspirin (Aspirin Chewable) 81 mg DAILY PO 09/02/19 09:00 09/02/19 09:49 Azithromycin (Zithromax Tab) 500 mg DAILY PO 09/02/19 09:00 09/02/19 09:50 Bisacodyl (Dulcolax Suppository) 10 mg DAILYPRN PRN SC CONSTIPATION 09/01/19 17:15 Buspirone HCl (Buspar) 5 mg BID PO 09/01/19 21:00 09/02/19 09:52 Cetylpyridinium Chloride (Cepacol) 1 mita Q2HP PRN PO COUGH 09/01/19 17:15 Dextrose (Dextrose 50%) 25 ml ASDIRECTED PRN IV SEE LABEL COMMENTS 09/01/19 17:15 Diltiazem HCl (Cardizem Cd) 240 mg BID PO 09/01/19 21:00 09/02/19 09:49 Docusate Sodium (Colace) 100 mg BID PO 09/01/19 21:00 09/02/19 09:47 Enoxaparin Sodium (Lovenox) 40 mg DAILY SC 09/02/19 09:00 09/02/19 09:47 Ferrous Gluconate (Fergon) 324 mg BID PO 09/01/19 21:00 09/02/19 09:48 Furosemide (Lasix) 40 mg DAILY PO 09/02/19 09:00 09/02/19 09:49 Gabapentin (Neurontin) 100 mg QHS PO 09/01/19 21:00 09/01/19 20:33 Glucagon (Glucagon) 1 mg ASDIRECTED PRN SC SEE LABEL COMMENTS 09/01/19 17:15 Glucose (Glucose) 16 GM ASDIRECTED PRN PO SEE LABEL COMMENTS 09/01/19 17:15 Guaifenesin (Mucinex Tab Er) 600 mg BID PO 09/01/19 21:00 09/02/19 09:48 Hydrocortisone (Cortef) 20 mg BID PO 09/01/19 21:00 09/02/19 09:48 Insulin Detemir (Levemir Insulin) 10 units BID SC 09/01/19 21:00 09/02/19 09:48 Insulin Human Lispro (HumaLOG INSULIN) SEE PROTOCOL TABLE AC SC 09/01/19 17:30 09/02/19 12:55 Insulin Human Lispro (HumaLOG INSULIN) SEE PROTOCOL TABLE QHS SC 09/01/19 21:00 Lidocaine (Lidoderm Patch) 1 patch DAILY TD 09/02/19 09:00 09/02/19 09:46 Non-Formulary Medication ( See Comment Field Below ) REMOVE LIDODERM PATCH DAILY@21 XX 09/01/19 21:00 09/01/19 20:34 Pantoprazole Sodium (Protonix) 40 mg Q2D PO 09/02/19 09:00 09/02/19 09:48 Salmeterol Xinafoate/ Fluticasone (Advair Hfa 115/ 21) 2 puff BID INH 09/01/19 21:00 09/02/19 08:03 Salmeterol Xinafoate/ Fluticasone (Advair Hfa 230/ 21) 2 puff BID INH 09/01/19 21:00 UNV Senna (Senokot) 1 tab QHS PO 09/01/19 21:00 09/01/19 20:32 Sucralfate (Carafate Suspension) 1 gm ACHS PO 09/01/19 17:30 09/02/19 12:55 Trazodone HCl (Desyrel) 25 mg QHSP PRN PO INSOMNIA 09/01/19 19:45 09/01/19 20:33 Valproic Acid (Depakene) 250 mg TID PO 09/01/19 21:00 09/02/19 09:52 Vitamin D (Vitamin D) 2,000 units DAILY PO 09/02/19 09:00 09/02/19 09:48 HANH KUMAR MD Sep 02, 2019 14:17
[2019-09-02 21:00] VITALS: BP 135/88
[2019-09-02] MEDS: traZODone 25MG PER 1/2 TABLET PO PRN (21:25)
[2019-09-02] MEDS: SENNA 8.6 MG TAB (SENOKOT) PO SCH (21:25)
[2019-09-02] MEDS: GABAPENTIN 100 MG CAP PO SCH (21:29)
[2019-09-02] MEDS: **NOTE PATIENT COMMENT** MISC XX SCH (21:34)
[2019-09-03] MEDS: IPRATROPIUM 0.5MG/ALBUTEROL 2.5MG INH SOL UD 3ML (DUONEB)(J7620) NEB SCH ×4 (02:00→18:06)
[2019-09-03 06:24] VITALS: BP 138/82
[2019-09-03] MEDS: ADVAIR HFA 115/21MCG INHALER INH SCH ×3 (07:54→18:06)
[2019-09-03] MEDS: HumaLOG INSULIN (NovoLOG) PER UNIT SC SCH ×4 (09:06→20:12)
[2019-09-03] MEDS: ENOXAPARIN 40 MG/0.4 ML SYRINGE (J1650) SC SCH (09:07)
[2019-09-03] MEDS: LEVEMIR (INSULIN DETEMIR) 1 UNITS/0.01ML SC SCH ×2 (09:07→20:14)
[2019-09-03] MEDS: ASPIRIN 81 MG CHEW TABLET PO SCH (09:07)
[2019-09-03] MEDS: SUCRALFATE SUSP 1GM/10ML UD PO SCH ×4 (09:07→20:08)
[2019-09-03] MEDS: HYDROCORTISONE 10 MG TAB PO SCH ×2 (09:08→20:20)
[2019-09-03] MEDS: VALPROIC ACID 250 MG CAP PO SCH ×3 (09:08→20:09)
[2019-09-03] MEDS: guaiFENesin ER 600 MG TAB PO SCH ×2 (09:08→20:21)
[2019-09-03] MEDS: VITAMIN D 1,000 INTERNATIONAL UNITS TABLET PO SCH (09:08)
[2019-09-03] MEDS: busPIRone 5 MG TAB PO SCH ×2 (09:08→20:10)
[2019-09-03] MEDS: AZITHROMYCIN 250 MG TAB PO SCH (09:08)
[2019-09-03] MEDS: DOCUSATE SODIUM 100 MG CAP PO SCH ×2 (09:09→20:09)
[2019-09-03] MEDS: FUROSEMIDE 40 MG TAB PO SCH (09:09)
[2019-09-03] MEDS: FERROUS GLUCONATE 324 MG TAB PO SCH ×2 (09:10→20:12)
[2019-09-03] MEDS: LIDOCAINE 5% (LIDODERM) PATCH TD SCH (09:10)
[2019-09-03 14:00] VITALS: BP 139/74
--- NOTE | 2019-09-03 14:32 | IPNPDOC ---
Subjective Date Seen The patient was seen on 09/03/19. Subjective Chief Complaint/HPI Patient was seen today in her room by Nurse Practitioner Medicine Hospitalist for Consultation as she was referred by Acute Rehab Unit for physical examination. She was admitted for rehabilitation for atrial fibrillation will start Eliquis 5 mg po bid today and congestive heart failure with exacerbation. She is currently experiencing an episode of wheezing, shortness of breath with hypoglycemia with blood glucose of 57 on bedside fingerstick. Mrs. Solano has significant medical history of diabetes mellitus type II, heart disease, essential hypertension, weakness in bilateral lower legs. General: Reports: Fatigue, Malaise; Denies: ROS Unobtainable, Chills, Night Sweats, Normal Appetite, Other Symptoms Constitutional: Reports: Malaise, Weakness, Fatigue; Denies: Chills, Fever, Night Sweats, Weight Loss, Lethargy, Other Eyes: Reports: Pain; Denies: Vision change, Conjunctivae inflammation, Eyelid inflammation, Redn ess, Other ENT: Reports: Head Aches Skin: Reports: Itching, Dry; Denies: Rash, Lesions, Jaundice, Bruising, Breakdown, Nail Changes, Other Pulmonary: Reports: Dyspnea Cardiovascular: Reports: Palpitations, Edema, Lt Headedness; Denies: Chest Pain, Orthopnea, Paroxysmal Noc. Dyspnea, Other Symptoms Gastrointestinal: Reports: Nausea Genitourinary: Denies: Dysuria, Frequency, Incontinence, Hematuria, Retention, Other Symptoms Hematologic: Reports: Bruising, Bleeding Excessively; Denies: Petecchia, Purpura, Enlarged Lymph Nodes, Other Hematologic Endocrine: Reports: Polydipsia, Polyuria Musculoskeletal: Reports: Leg Pain, Foot Pain, Joint Pain Neurological: Reports: Weakness, Numbness, Incoordination Psych: Reports: Anxiety Objective Physical Examination General Exam: Positive: Alert, Cooperative, Mild Distress (due to acute hypoglycemia -57) Eye Exam: Positive: PERRLA, Conjunctiva & lids normal, Sclera icteric ENT Exam: Positive: Atraumatic, Mucous membr. moist/pink, Pharynx Normal Neck Exam: Positive: Supple, +2 carotid pulse wo bruit Chest Exam: Positive: Wheezing Heart Exam: Positive: Irregular Rhythm, Normal S1, Normal S2 Telemetry: Positive: Atrial fibrillation Abdomen Exam: Positive: Normal bowel sounds, Soft Extremity Exam: Positive: Edema (+2 bilateral lower legs/ankles, NAHOMI hose on ), Tenderness, Swelling Skin Exam: Positive: Pruritus, Other skin issue (extra dry skin) Neuro Exam: Positive: Normal Speech, Cranial Nerves 3-12 NL Psych Exam: Positive: Anxiety Assessment /Plan Assessment 74 year old elderly female sitting up in her wheelchair in her room visiting her son has complaints of shortness of breath, weakness, wheezing, headache and low blood glucose as her blood glucose decreased to 57 while she was walking with physical therapy in the down the [place]. Congestive Heart Failure-Chronic PLAN Continue Furosemide Daily weight, Monitor I&O's Monitor Vital Signs Telemetry and Pulse oximetry monitoring Low sodium diet w Water restriction Atrial Fibrillation-Chronic Eliquis 5 mg po bid Stop Lovenox 40 mg SQ daily (today) Weakness Legs/Gait- Continue Acute Rehab Unit Program PT/OT Diabetes Mellitus Type II-Chronic POC AC & HS Hypoglycemia Protocol per [facility] policy IV initiated Sliding scale Insulin Lispro AC & HS per policy [facility] Home medication continuation Prognosis: Fair DVT Prophylaxis: Eliquis 5 mg po bid, NAHOMI Hose bilateral lower legs Discharge: Pending Acute Rehab Unit Plan/VTE VTE Prophylaxis Ordered?: Yes VTE Exclusion Mechanical Proph: N/A:VTE Prophy Ordered VTE Exclusion Pharmacological: N/A:VTE Prophy Ordered VS, I&O, 24H, Fishbone Vital Signs/I&O Vital Signs Date Time Temp Pulse Resp B/P (MAP) Pulse Ox O2 Delivery O2 Flow Rate FiO2 09/03/19 09:08 80 138/82 09/03/19 06:24 98.0 18 96 Room Air I&O- Last 24 Hours up to 6 AM 09/03/19 06:00 Intake Total 1200 ml Output Total 0 ml Balance 1200 ml Laboratory Data 24H LABS Laboratory Tests 2 09/02/19 17:03: Bedside Glucose (Misc Panel) 329H 09/02/19 21:24: Bedside Glucose (Misc Panel) 130H 09/03/19 07:24: Bedside Glucose (Misc Panel) 213H 09/03/19 11:54: Bedside Glucose (Misc Panel) 57L 09/03/19 12:15: Bedside Glucose Confirm (Misc) 70 SARANYA BUTCHER DROP WIRE HANGER Sep 03, 2019 14:32
[2019-09-03 20:00] VITALS: BP 132/70
[2019-09-03] MEDS: traZODone 25MG PER 1/2 TABLET PO PRN (20:10)
[2019-09-03] MEDS: ACETAMINOPHEN TAB 650MG DOSE (2X325MG) PO PRN (20:11)
[2019-09-03] MEDS: GABAPENTIN 100 MG CAP PO SCH (20:11)
[2019-09-03] MEDS: SENNA 8.6 MG TAB (SENOKOT) PO SCH (20:12)
[2019-09-03] MEDS: **NOTE PATIENT COMMENT** MISC XX SCH (20:21)
[2019-09-04] MEDS: IPRATROPIUM 0.5MG/ALBUTEROL 2.5MG INH SOL UD 3ML (DUONEB)(J7620) NEB SCH ×4 (00:18→20:58)
[2019-09-04 06:17] VITALS: BP 118/64
[2019-09-04 07:08] LABS: HEMATOCRIT 30.4 % (36.0-47.0); HEMOGLOBIN 8.9 g/dl (12.0-15.5); MEAN CORPUSCULAR HEMOGLOBIN 24.9 pg (27.0-33.0); MEAN CORPUSCULAR HGB CONC 29.3 g/dl (32.0-36.5); MEAN CORPUSCULAR VOLUME 84.9 fl (80.0-96.0); PLATELET COUNT, AUTOMATED 510 10^3/uL (150-450); RED BLOOD COUNT 3.58 10^6/uL (4.00-5.40)
[2019-09-04] MEDS: ADVAIR HFA 115/21MCG INHALER INH SCH ×2 (07:48→20:59)
[2019-09-04] MEDS: PANTOPRAZOLE 40MG TAB (PROTONIX) PO SCH (09:16)
[2019-09-04] MEDS: LEVEMIR (INSULIN DETEMIR) 1 UNITS/0.01ML SC SCH ×2 (09:16→21:42)
[2019-09-04] MEDS: APIXABAN 5 MG TAB (ELIQUIS) PO SCH ×2 (09:16→21:38)
[2019-09-04] MEDS: ASPIRIN 81 MG CHEW TABLET PO SCH (09:16)
[2019-09-04] MEDS: HumaLOG INSULIN (NovoLOG) PER UNIT SC SCH ×4 (09:16→21:00)
[2019-09-04] MEDS: FERROUS GLUCONATE 324 MG TAB PO SCH ×2 (09:16→21:39)
[2019-09-04] MEDS: VITAMIN D 1,000 INTERNATIONAL UNITS TABLET PO SCH (09:17)
[2019-09-04] MEDS: FUROSEMIDE 40 MG TAB PO SCH (09:17)
[2019-09-04] MEDS: busPIRone 5 MG TAB PO SCH ×2 (09:17→21:38)
[2019-09-04] MEDS: DOCUSATE SODIUM 100 MG CAP PO SCH ×2 (09:17→21:38)
[2019-09-04] MEDS: VALPROIC ACID 250 MG CAP PO SCH ×3 (09:17→21:39)
[2019-09-04] MEDS: guaiFENesin ER 600 MG TAB PO SCH ×2 (09:17→21:39)
[2019-09-04] MEDS: AMIODARONE 200 MG TAB (PACERONE) PO SCH (09:18)
[2019-09-04] MEDS: HYDROCORTISONE 10 MG TAB PO SCH ×2 (09:18→21:38)
[2019-09-04] MEDS: AZITHROMYCIN 250 MG TAB PO SCH (09:18)
[2019-09-04] MEDS: LIDOCAINE 5% (LIDODERM) PATCH TD SCH (09:19)
[2019-09-04] MEDS: SUCRALFATE SUSP 1GM/10ML UD PO SCH ×4 (09:22→21:39)
[2019-09-04] MEDS: ACETAMINOPHEN TAB 650MG DOSE (2X325MG) PO PRN ×2 (09:23→17:06)
[2019-09-04 14:00] VITALS: BP 115/63
--- NOTE | 2019-09-04 18:56 | IPNPDOC ---
PM&R Progress Note DATE OF SERVICE: Sep 03, 2019 Port Engineer Progress Note Subjective: Patient reporting she felt shaky this morning when her blood sugar was in the 50s. She did not get her breakfast on time. REVIEW OF SYSTEMS: The following is a completed review of systems and has been reviewed. Review of systems otherwise unremarkable. PAIN: Patient self reports throat pain EYES: No recent vision changes EARS, NOSE, & THROAT: +throat pain- no dysphagia, or rhinorrhea. CARDIOVASCULAR: Denies chest pain or palpitations PULMONARY: Denies shortness of breath at rest GASTROINTESTINAL: Denies constipation/diarrhea GENITOURINARY: denies dysuria MUSCULOSKELETAL: cervical stenosis NEUROLOGICAL: +seizure hx HEMATOLOGICAL: no easy bruising SKIN: no rash PSYCHIATRIC: Unremarkable All other review of systems found to be negative. PHYSICAL EXAMINATION: VITAL SIGNS: Please see below. GENERAL: Pleasant and cooperative. No acute distress. HEENT: PERRL. Extraocular movements intact. Clear conjunctiva CARDIOVASCULAR: Irregular rate and rhythm. No murmurs, rubs, or gallops LUNGS: diminished lung sounds, No wheezes. + rhonchi ABDOMEN: Soft, nontender, nondistended. Positive bowel sounds. Normal active bowel sounds NEUROLOGICAL: Alert and oriented times three. Cranial nerves II through XII grossly intact. Sensation grossly intact EXTREMITIES: 5\5 strength left upper extremities. 5/5 right elbow flexion/extension, wrist extension, manager hair, 3/5 abduction (limited due to arthritis) 5\5 strength right lower extremity. 5/5 strength in left lower extremity. SKIN: small protuberance on back of left thigh ASSESSMENT:74-year-old F with past medical history of COPD, diastolic CHF, Afib who presents status post CHF exacerbation PLAN: 1. Rehab: PT- strengthen/stretch/improve ROM bilat LE, teach energy conservation techniques OT- strengthen/stretch/improve ROM bilat UE, focus on right shoulder exercises, optimize ADL management 2. Neuro: pmh seizures- c/u Valproic Acid 3. CArdio: pmh Afib with SVTs, CAD with NSTEMI, diastolic CHF- c/u Amiodarone, Diltiazem, Lasix, and ASA- patient currently not on anticoagulation, has no hx of bleeding, discussed case with her category analyst Jacobo palmer to start AC while on ARU 5mg BID -fluid restrict to 1800cc -medicine consulted to assist in management 4. Resp: pneumonia- c/u Azithromycin, Advair, Mucinex, and Duonebs -recent CT +for infiltrate, however per record cannot rule out neoplasm- to be followed by PMD 5. Endo: pmh DM c/u insulin, will decrease Levemir to 5mg BID given hypoglycemia today -adrenal insufficiency- on oral steroids 6. renal: recent JUAN CARLOS which resolved, will monitor 7. DVT ppx: Lovenox and teds 8. GI ppx: protonix q2d, will add sucralfate while on steroids 9. Ortho: recent cervical stenosis s/p decompression and fusion June 2019 with bilat UE weakness- will address in therapy -c/u gabapentin 100qHS 10. Psych- Buspar 5mg BID for anxiety and trazodone prn qHS for insomnia 11. - monitor PVRs 12. Dispo: TBD Allergies Coded Allergies: propoxyphene (Verified Allergy, Intermediate, hives, 08/28/19) Vital Signs Vital Signs Date Time Temp Pulse Resp B/P (MAP) Pulse Ox O2 Delivery O2 Flow Rate FiO2 09/04/19 14:00 98.4 75 18 115/63 (80) 99 09/04/19 06:17 Room Air Laboratory Data CBC/BMP Laboratory Tests 09/04/19 06:42 Labs 24H Laboratory Tests 2 09/03/19 20:07: Bedside Glucose (Misc Panel) 182H 09/04/19 06:21: Bedside Glucose (Misc Panel) 148H 09/04/19 06:42: Nucleated Red Blood Cells % (auto) 0.0 09/04/19 12:02: Bedside Glucose (Misc Panel) 152H 09/04/19 17:01: Bedside Glucose (Misc Panel) 213H Current Medications Current Medications Current Medications Medications (Trade) Dose Ordered Sig/Steven Route PRN Reason Start Time Stop Time Status Last Admin Dose Admin Acetaminophen (Tylenol Tab) 650 mg Q4HP PRN PO MILD PAIN (PS 1-4) 09/01/19 17:15 09/04/19 17:06 Albuterol/ Ipratropium (Duoneb (Ipr 0.5mg/Alb 2.5mg)) 3 ml Q2HP PRN NEB SOB/WHEEZING 09/01/19 17:15 09/03/19 20:26 Albuterol/ Ipratropium (Duoneb (Ipr 0.5mg/Alb 2.5mg)) 3 ml RQ6H NEB 09/01/19 20:00 09/04/19 07:48 Amiodarone HCl (Pacerone, Cordarone) 200 mg MoWeFr@0900 PO 09/02/19 09:00 09/02/19 09:49 DC Amiodarone HCl (Pacerone, Cordarone) 200 mg MoWeFr@0900 PO 09/02/19 09:49 09/04/19 09:18 Apixaban (Eliquis) 5 mg BID PO 09/04/19 09:00 09/04/19 09:16 Aspirin (Aspirin Chewable) 81 mg DAILY PO 09/02/19 09:00 09/04/19 09:16 Azithromycin (Zithromax Tab) 500 mg DAILY PO 09/02/19 09:00 09/04/19 09:18 Bisacodyl (Dulcolax Suppository) 10 mg DAILYPRN PRN [place] CONSTIPATION 09/01/19 17:15 09/02/19 20:11 Buspirone HCl (Buspar) 5 mg BID PO 09/01/19 21:00 09/04/19 09:17 Cetylpyridinium Chloride (Cepacol) 1 mita Q2HP PRN PO COUGH 09/01/19 17:15 Dextrose (Dextrose 50%) 25 ml ASDIRECTED PRN IV SEE LABEL COMMENTS 09/01/19 17:15 Diltiazem HCl (Cardizem Cd) 240 mg BID PO 09/01/19 21:00 09/04/19 09:19 Docusate Sodium (Colace) 100 mg BID PO 09/01/19 21:00 09/04/19 09:17 Enoxaparin Sodium (Lovenox) 40 mg DAILY SC 09/02/19 09:00 09/03/19 10:21 DC 09/03/19 09:07 Ferrous Gluconate (Fergon) 324 mg BID PO 09/01/19 21:00 09/04/19 09:16 Furosemide (Lasix) 40 mg DAILY PO 09/02/19 09:00 09/04/19 09:17 Gabapentin (Neurontin) 100 mg QHS PO 09/01/19 21:00 09/03/19 20:11 Glucagon (Glucagon) 1 mg ASDIRECTED PRN SC SEE LABEL COMMENTS 09/01/19 17:15 Glucose (Glucose) 16 GM ASDIRECTED PRN PO SEE LABEL COMMENTS 09/01/19 17:15 Guaifenesin (Mucinex Tab Er) 600 mg BID PO 09/01/19 21:00 09/04/19 09:17 Hydrocortisone (Cortef) 20 mg BID PO 09/01/19 21:00 09/04/19 09:18 Insulin Detemir (Levemir Insulin) 5 units BID SC 09/03/19 21:00 09/04/19 09:16 Insulin Detemir (Levemir Insulin) 10 units BID SC 09/01/19 21:00 09/03/19 18:21 DC 09/03/19 09:07 Insulin Human Lispro (HumaLOG INSULIN) SEE PROTOCOL TABLE AC SC 09/01/19 17:30 09/04/19 18:12 Insulin Human Lispro (HumaLOG INSULIN) SEE PROTOCOL TABLE QHS SC 09/01/19 21:00 Lidocaine (Lidoderm Patch) 1 patch DAILY TD 09/02/19 09:00 09/04/19 09:19 Non-Formulary Medication ( See Comment Field Below ) REMOVE LIDODERM PATCH DAILY@21 XX 09/01/19 21:00 09/03/19 20:21 Pantoprazole Sodium (Protonix) 40 mg Q2D PO 09/02/19 09:00 09/04/19 09:16 Salmeterol Xinafoate/ Fluticasone (Advair Hfa 115/ 21) 2 puff BID INH 09/01/19 21:00 09/03/19 18:06 Salmeterol Xinafoate/ Fluticasone (Advair Hfa 230/ 21) 2 puff BID INH 09/01/19 21:00 UNV Senna (Senokot) 1 tab QHS PO 09/01/19 21:00 09/03/19 20:12 Sucralfate (Carafate Suspension) 1 gm ACHS PO 09/01/19 17:30 09/04/19 18:11 Tramadol HCl (Ultram) 50 mg Q6HP PRN PO MODERATE PAIN (PS 5-7) 09/04/19 18:30 Trazodone HCl (Desyrel) 25 mg QHSP PRN PO INSOMNIA 09/01/19 19:45 09/03/19 20:10 Valproic Acid (Depakene) 250 mg TID PO 09/01/19 21:00 09/04/19 16:34 Vitamin D (Vitamin D) 2,000 units DAILY PO 09/02/19 09:00 09/04/19 09:17 HANH KUMAR MD Sep 04, 2019 18:56
--- NOTE | 2019-09-04 18:59 | IPNPDOC ---
PM&R Progress Note DATE OF SERVICE: Sep 04, 2019 Dental Laboratory Manager Progress Note Subjective: Patient reporting neck pain and is asking for tramadol. She denies fevers or chills. REVIEW OF SYSTEMS: The following is a completed review of systems and has been reviewed. Review of systems otherwise unremarkable. PAIN: Patient self reports throat pain EYES: No recent vision changes EARS, NOSE, & THROAT: +throat pain- no dysphagia, or rhinorrhea. CARDIOVASCULAR: Denies chest pain or palpitations PULMONARY: Denies shortness of breath at rest GASTROINTESTINAL: Denies constipation/diarrhea GENITOURINARY: denies dysuria MUSCULOSKELETAL: cervical stenosis NEUROLOGICAL: +seizure hx HEMATOLOGICAL: no easy bruising SKIN: no rash PSYCHIATRIC: Unremarkable All other review of systems found to be negative. PHYSICAL EXAMINATION: VITAL SIGNS: Please see below. GENERAL: Pleasant and cooperative. No acute distress. HEENT: PERRL. Extraocular movements intact. Clear conjunctiva CARDIOVASCULAR: Irregular rate and rhythm. No murmurs, rubs, or gallops LUNGS: diminished lung sounds, No wheezes. + rhonchi ABDOMEN: Soft, nontender, nondistended. Positive bowel sounds. Normal active bowel sounds NEUROLOGICAL: Alert and oriented times three. Cranial nerves II through XII grossly intact. Sensation grossly intact EXTREMITIES: 5\5 strength left upper extremities. 5/5 right elbow flexion/extension, wrist extension, casting wheel operator helper, 3/5 abduction (limited due to arth ritis) 5\5 strength right lower extremity. 5/5 strength in left lower extremity. SKIN: small protuberance on back of left thigh ASSESSMENT:74-year-old F with past medical history of COPD, diastolic CHF, Afib who presents status post CHF exacerbation PLAN: 1. Rehab: PT- strengthen/stretch/improve ROM bilat LE, teach energy conservation techniques OT- strengthen/stretch/improve ROM bilat UE, focus on right shoulder exercises, optimize ADL management 2. Neuro: pmh seizures- c/u Valproic Acid 3. CArdio: pmh Afib with SVTs, CAD with NSTEMI, diastolic CHF- c/u Amiodarone, Diltiazem, Lasix, and ASA- patient currently not on anticoagulation, has no hx of bleeding, discussed case with her residence counselor Jacobo palmer to start AC while on ARU 5mg BID -fluid restrict to 1800cc -medicine consulted to assist in management 4. Resp: pneumonia- c/u Azithromycin, Advair, Mucinex, and Duonebs -recent CT +for infiltrate, however per record cannot rule out neoplasm- to be followed by PMD -leukocytosis likely due to oral steroids 5. Endo: pmh DM c/u insulin, will decrease Levemir to 5mg BID given hypoglycemia today -adrenal insufficiency- on oral steroids 6. renal: recent JUAN CARLOS which resolved, will monitor 7. DVT ppx: Lovenox and teds 8. GI ppx: protonix q2d, will add sucralfate while on steroids 9. Ortho: recent cervical stenosis s/p decompression and fusion June 2019 with bilat UE weakness- will address in therapy -c/u gabapentin 100qHS -will add tramadol prn pain 10. Psych- Buspar 5mg BID for anxiety and trazodone prn qHS for insomnia 11. - monitor PVRs, will order UA given increase in wbc, however likely due to oral steroids 12. Dispo: TBD Allergies Coded Allergies: propoxyphene (Verified Allergy, Intermediate, hives, 08/28/19) Vital Signs Vital Signs Date Time Temp Pulse Resp B/P (MAP) Pulse Ox O2 Delivery O2 Flow Rate FiO2 09/04/19 14:00 98.4 75 18 115/63 (80) 99 09/04/19 06:17 Room Air Laboratory Data CBC/BMP Laboratory Tests 09/04/19 06:42 Labs 24H Laboratory Tests 2 09/03/19 20:07: Bedside Glucose (Misc Panel) 182H 09/04/19 06:21: Bedside Glucose (Misc Panel) 148H 09/04/19 06:42: Nucleated Red Blood Cells % (auto) 0.0 09/04/19 12:02: Bedside Glucose (Misc Panel) 152H 09/04/19 17:01: Bedside Glucose (Misc Panel) 213H Current Medications Current Medications Current Medications Medications (Trade) Dose Ordered Sig/Steven Route PRN Reason Start Time Stop Time Status Last Admin Dose Admin Acetaminophen (Tylenol Tab) 650 mg Q4HP PRN PO MILD PAIN (PS 1-4) 09/01/19 17:15 09/04/19 17:06 Albuterol/ Ipratropium (Duoneb (Ipr 0.5mg/Alb 2.5mg)) 3 ml Q2HP PRN NEB SOB/WHEEZING 09/01/19 17:15 09/03/19 20:26 Albuterol/ Ipratropium (Duoneb (Ipr 0.5mg/Alb 2.5mg)) 3 ml RQ6H NEB 09/01/19 20:00 09/04/19 07:48 Amiodarone HCl (Pacerone, Cordarone) 200 mg MoWeFr@0900 PO 09/02/19 09:00 09/02/19 09:49 DC Amiodarone HCl (Pacerone, Cordarone) 200 mg MoWeFr@0900 PO 09/02/19 09:49 09/04/19 09:18 Apixaban (Eliquis) 5 mg BID PO 09/04/19 09:00 09/04/19 09:16 Aspirin (Aspirin Chewable) 81 mg DAILY PO 09/02/19 09:00 09/04/19 09:16 Azithromycin (Zithromax Tab) 500 mg DAILY PO 09/02/19 09:00 09/04/19 09:18 Bisacodyl (Dulcolax Suppository) 10 mg DAILYPRN PRN [place] CONSTIPATION 09/01/19 17:15 09/02/19 20:11 Buspirone HCl (Buspar) 5 mg BID PO 09/01/19 21:00 09/04/19 09:17 Cetylpyridinium Chloride (Cepacol) 1 mita Q2HP PRN PO COUGH 09/01/19 17:15 Dextrose (Dextrose 50%) 25 ml ASDIRECTED PRN IV SEE LABEL COMMENTS 09/01/19 17:15 Diltiazem HCl (Cardizem Cd) 240 mg BID PO 09/01/19 21:00 09/04/19 09:19 Docusate Sodium (Colace) 100 mg BID PO 09/01/19 21:00 09/04/19 09:17 Enoxaparin Sodium (Lovenox) 40 mg DAILY SC 09/02/19 09:00 09/03/19 10:21 DC 09/03/19 09:07 Ferrous Gluconate (Fergon) 324 mg BID PO 09/01/19 21:00 09/04/19 09:16 Furosemide (Lasix) 40 mg DAILY PO 09/02/19 09:00 09/04/19 09:17 Gabapentin (Neurontin) 100 mg QHS PO 09/01/19 21:00 09/03/19 20:11 Glucagon (Glucagon) 1 mg ASDIRECTED PRN SC SEE LABEL COMMENTS 09/01/19 17:15 Glucose (Glucose) 16 GM ASDIRECTED PRN PO SEE LABEL COMMENTS 09/01/19 17:15 Guaifenesin (Mucinex Tab Er) 600 mg BID PO 09/01/19 21:00 09/04/19 09:17 Hydrocortisone (Cortef) 20 mg BID PO 09/01/19 21:00 09/04/19 09:18 Insulin Detemir (Levemir Insulin) 5 units BID SC 09/03/19 21:00 09/04/19 09:16 Insulin Detemir (Levemir Insulin) 10 units BID SC 09/01/19 21:00 09/03/19 18:21 DC 09/03/19 09:07 Insulin Human Lispro (HumaLOG INSULIN) SEE PROTOCOL TABLE AC SC 09/01/19 17:30 09/04/19 18:12 Insulin Human Lispro (HumaLOG INSULIN) SEE PROTOCOL TABLE QHS SC 09/01/19 21:00 Lidocaine (Lidoderm Patch) 1 patch DAILY TD 09/02/19 09:00 09/04/19 09:19 Non-Formulary Medication ( See Comment Field Below ) REMOVE LIDODERM PATCH DAILY@21 XX 09/01/19 21:00 09/03/19 20:21 Pantoprazole Sodium (Protonix) 40 mg Q2D PO 09/02/19 09:00 09/04/19 09:16 Salmeterol Xinafoate/ Fluticasone (Advair Hfa 115/ 21) 2 puff BID INH 09/01/19 21:00 09/03/19 18:06 Salmeterol Xinafoate/ Fluticasone (Advair Hfa 230/ 21) 2 puff BID INH 09/01/19 21:00 UNV Senna (Senokot) 1 tab QHS PO 09/01/19 21:00 09/03/19 20:12 Sucralfate (Carafate Suspension) 1 gm ACHS PO 09/01/19 17:30 09/04/19 18:11 Tramadol HCl (Ultram) 50 mg Q6HP PRN PO MODERATE PAIN (PS 5-7) 09/04/19 18:30 Trazodone HCl (Desyrel) 25 mg QHSP PRN PO INSOMNIA 09/01/19 19:45 09/03/19 20:10 Valproic Acid (Depakene) 250 mg TID PO 09/01/19 21:00 09/04/19 16:34 Vitamin D (Vitamin D) 2,000 units DAILY PO 09/02/19 09:00 09/04/19 09:17 HANH KUMAR MD Sep 04, 2019 18:58
[2019-09-04 20:00] VITALS: BP 100/63
[2019-09-04] MEDS: GABAPENTIN 100 MG CAP PO SCH (21:39)
[2019-09-04] MEDS: traMADol 50 MG TAB PO PRN (21:40)
[2019-09-04] MEDS: SENNA 8.6 MG TAB (SENOKOT) PO SCH (21:40)
[2019-09-04] MEDS: **NOTE PATIENT COMMENT** MISC XX SCH (21:42)
[2019-09-04] MEDS: traZODone 25MG PER 1/2 TABLET PO PRN (22:52)
[2019-09-05] MEDS: IPRATROPIUM 0.5MG/ALBUTEROL 2.5MG INH SOL UD 3ML (DUONEB)(J7620) NEB SCH ×4 (01:42→19:04)
[2019-09-05 06:00] VITALS: BP 117/64
[2019-09-05 07:21] LABS: HEMATOCRIT 29.6 % (36.0-47.0); HEMOGLOBIN 8.8 g/dl (12.0-15.5); MEAN CORPUSCULAR HEMOGLOBIN 25.7 pg (27.0-33.0); MEAN CORPUSCULAR HGB CONC 29.7 g/dl (32.0-36.5); MEAN CORPUSCULAR VOLUME 86.5 fl (80.0-96.0); PLATELET COUNT, AUTOMATED 478 10^3/uL (150-450); RED BLOOD COUNT 3.42 10^6/uL (4.00-5.40)
[2019-09-05] MEDS: ADVAIR HFA 115/21MCG INHALER INH SCH ×2 (07:39→19:04)
[2019-09-05 07:44] LABS: EOSINOPHILS 1 % (0-3); LYMPHOCYTES 25 % (16-44); MONOCYTES 11 % (0-5); MYELOCYTES 1 % (0-0); NEUTROPHILS 62 % (28-66)
[2019-09-05 07:46] LABS: HYPOCHROMASIA 1+; PLATELET ESTIMATE NORMAL (NORMAL)
[2019-09-05 07:50] LABS: BLOOD UREA NITROGEN 21 MG/DL (7-18); CALCIUM LEVEL 8.6 MG/DL (8.8-10.2); CARBON DIOXIDE LEVEL 26 MEQ/L (21-32); CHLORIDE LEVEL 103 MEQ/L (98-107); CREATININE FOR GFR 0.72 MG/DL (0.55-1.30); GLOMERULAR FILTRATION RATE > 60.0 (>39); GLUCOSE, FASTING 178 MG/DL (70-100); POTASSIUM SERUM 4.3 MEQ/L (3.5-5.1); SODIUM LEVEL 135 MEQ/L (136-145)
[2019-09-05] MEDS: SUCRALFATE SUSP 1GM/10ML UD PO SCH ×4 (08:38→20:46)
[2019-09-05] MEDS: VITAMIN D 1,000 INTERNATIONAL UNITS TABLET PO SCH (08:39)
[2019-09-05] MEDS: VALPROIC ACID 250 MG CAP PO SCH ×3 (08:39→20:47)
[2019-09-05] MEDS: DOCUSATE SODIUM 100 MG CAP PO SCH ×2 (08:39→20:45)
[2019-09-05] MEDS: busPIRone 5 MG TAB PO SCH ×2 (08:39→20:46)
[2019-09-05] MEDS: APIXABAN 5 MG TAB (ELIQUIS) PO SCH ×2 (08:39→20:45)
[2019-09-05] MEDS: HYDROCORTISONE 10 MG TAB PO SCH ×2 (08:39→20:45)
[2019-09-05] MEDS: guaiFENesin ER 600 MG TAB PO SCH ×2 (08:39→20:45)
[2019-09-05] MEDS: FERROUS GLUCONATE 324 MG TAB PO SCH ×2 (08:39→20:45)
[2019-09-05] MEDS: ASPIRIN 81 MG CHEW TABLET PO SCH (08:39)
[2019-09-05] MEDS: LEVEMIR (INSULIN DETEMIR) 1 UNITS/0.01ML SC SCH ×2 (08:40→20:46)
[2019-09-05] MEDS: LIDOCAINE 5% (LIDODERM) PATCH TD SCH (08:40)
[2019-09-05] MEDS: HumaLOG INSULIN (NovoLOG) PER UNIT SC SCH ×4 (08:41→20:48)
[2019-09-05] MEDS: FUROSEMIDE 40 MG TAB PO SCH (08:41)
--- NOTE | 2019-09-05 13:27 | IPNPDOC ---
Text Note Date of Service The patient was seen on 09/05/19. NOTE Subjective: Patient is a 74 year old female with a PMHx of Atrial fibrillation, Hx of SVT (on Amiodarone), Suspected Compensated Diastolic CHF, COPD, DM2, Primary adrenal insufficiency, Hx of Seizure disorder, Chronic back pain, GERD who presented to [facility] ER with SOB, found to have decompensated CHF. She was also found to have a RML / RLL infiltrate consistent with pneumonia. Patient was started on aggressive diuresis and brought him antibiotics and was eventually transitioned to oral diuretics and antibiotics. Patient was transitioned to ARU on 09/01/2019 for continued rehabilitation. Patient was seen and examined at the bedside. . Patient reports that her breathing is doing better. She denies any chest pain, shortness of breath or palpitations. Has been working with physical therapy. Denies any abdominal pain or diarrhea. Objective: Vitals (See below) General: Lying in bed, no acute distress, comfortable, AAOx3 HEENT: NC, AT CVS: RRR, +S1S2 Lungs: Fair air entry b/l, no appreciable wheezing, rales or rhonchi Abdomen: Soft, non-distended, non-tender Extremities: 1+ pitting edema noted bilaterally, - Calf tenderness Assessment and plan: s/p Recent PNA - c/w symptomatic control with Guaifenesin and Capacol - s/p Azithromycin Atrial fibrillation / Hx of SVT - c/w Amiodarone and Diltiazem - c/w Full anticoagulation with Eliquis Suspected Compensated Diastolic CHF - Some evidence of fluid overload noted; LE are with 1+ to trace edema bilaterally - c/w Furosemide 40 daily; will provide additional dose of diuretics today - c/w strict ins/outs, daily weights, COPD - No evidence of exacerbation - c/w Inhaled therapy as ordered DM2 with Hyperglycemia - Episodes of hyperglycemia; adjustments to Levemir were made - c/w Levemir and ISS Primary adrenal insufficiency - Patient remains asymptomatic - BP appears within normal limits - c/w Hydrocortisone Hx of Seizure disorder - c/w Valproic acid Chronic back pain - c/w Tramadol and Gabapentin Mood disorder - c/w Buspirone Insomnia - c/w Trazodone PRN Vitamin D - c/w supplementation GERD - c/w Carafate and Protonix DVT prophylaxis - c/w full anticoagulation with Eliquis VS,Fishbone, I+O VS, Fishbone, I+O Laboratory Tests 09/05/19 07:06 Vital Signs Date Time Temp Pulse Resp B/P (MAP) Pulse Ox O2 Delivery O2 Flow Rate FiO2 09/05/19 08:39 86 117/64 09/05/19 06:00 98.5 18 94 Room Air I&O- Last 24 Hours up to 6 AM0 09/05/19 05:59 Intake Total 1080 ml Output Total 0 ml Balance 1080 ml SALVADOR LANGFORD MD Sep 05, 2019 13:27
[2019-09-05 14:00] VITALS: BP 112/97
[2019-09-05] MEDS ORDERED: FUROSEMIDE 40 MG TAB PO ONE (15:00)
[2019-09-05] MEDS: traMADol 50 MG TAB PO PRN ×2 (15:09→23:05)
[2019-09-05] MEDS: SENNA 8.6 MG TAB (SENOKOT) PO SCH (20:45)
[2019-09-05] MEDS: traZODone 25MG PER 1/2 TABLET PO PRN (20:45)
[2019-09-05] MEDS: GABAPENTIN 100 MG CAP PO SCH (20:47)
[2019-09-05] MEDS: **NOTE PATIENT COMMENT** MISC XX SCH (20:48)
[2019-09-05 22:00] VITALS: BP 132/78
[2019-09-06] MEDS ORDERED: MOM 30ML SUSPENSION UDC PO PRN (02:00)
[2019-09-06 06:00] VITALS: BP 107/64
[2019-09-06] MEDS: SUCRALFATE SUSP 1GM/10ML UD PO SCH ×4 (07:30→20:33)
[2019-09-06] MEDS: IPRATROPIUM 0.5MG/ALBUTEROL 2.5MG INH SOL UD 3ML (DUONEB)(J7620) NEB SCH ×3 (07:54→20:23)
[2019-09-06] MEDS: ADVAIR HFA 115/21MCG INHALER INH SCH ×2 (07:55→20:22)
[2019-09-06] MEDS: LIDOCAINE 5% (LIDODERM) PATCH TD SCH (08:49)
[2019-09-06] MEDS: busPIRone 5 MG TAB PO SCH ×2 (08:50→20:32)
[2019-09-06] MEDS: VITAMIN D 1,000 INTERNATIONAL UNITS TABLET PO SCH (08:50)
[2019-09-06] MEDS: DOCUSATE SODIUM 100 MG CAP PO SCH ×2 (08:50→20:32)
[2019-09-06] MEDS: PANTOPRAZOLE 40MG TAB (PROTONIX) PO SCH (08:50)
[2019-09-06] MEDS: HYDROCORTISONE 10 MG TAB PO SCH ×2 (08:50→20:32)
[2019-09-06] MEDS: FUROSEMIDE 40 MG TAB PO SCH (08:50)
[2019-09-06] MEDS: LEVEMIR (INSULIN DETEMIR) 1 UNITS/0.01ML SC SCH ×2 (08:50→20:33)
[2019-09-06] MEDS: VALPROIC ACID 250 MG CAP PO SCH ×3 (08:51→20:32)
[2019-09-06] MEDS: FERROUS GLUCONATE 324 MG TAB PO SCH ×2 (08:51→20:32)
[2019-09-06] MEDS: guaiFENesin ER 600 MG TAB PO SCH ×2 (08:51→20:32)
[2019-09-06] MEDS: ASPIRIN 81 MG CHEW TABLET PO SCH (08:51)
[2019-09-06] MEDS: APIXABAN 5 MG TAB (ELIQUIS) PO SCH ×2 (08:51→20:32)
[2019-09-06] MEDS: HumaLOG INSULIN (NovoLOG) PER UNIT SC SCH ×4 (08:52→20:33)
[2019-09-06] MEDS: traMADol 50 MG TAB PO PRN ×2 (13:10→20:42)
[2019-09-06 14:00] VITALS: BP 134/82
[2019-09-06] MEDS: traZODone 25MG PER 1/2 TABLET PO PRN (20:32)
[2019-09-06] MEDS: GABAPENTIN 100 MG CAP PO SCH (20:32)
[2019-09-06] MEDS: SENNA 8.6 MG TAB (SENOKOT) PO SCH (20:32)
[2019-09-06] MEDS: ACETAMINOPHEN TAB 650MG DOSE (2X325MG) PO PRN (20:37)
[2019-09-06] MEDS: **NOTE PATIENT COMMENT** MISC XX SCH (20:44)
[2019-09-06 22:00] VITALS: BP 127/60
[2019-09-07] MEDS: IPRATROPIUM 0.5MG/ALBUTEROL 2.5MG INH SOL UD 3ML (DUONEB)(J7620) NEB SCH ×4 (02:00→19:41)
[2019-09-07] MEDS: traMADol 50 MG TAB PO PRN ×3 (02:48→17:10)
[2019-09-07 05:59] VITALS: BP 103/50
[2019-09-07 06:47] LABS: HEMATOCRIT 27.9 % (36.0-47.0); HEMOGLOBIN 8.2 g/dl (12.0-15.5); MEAN CORPUSCULAR HEMOGLOBIN 25.5 pg (27.0-33.0); MEAN CORPUSCULAR HGB CONC 29.4 g/dl (32.0-36.5); MEAN CORPUSCULAR VOLUME 86.6 fl (80.0-96.0); PLATELET COUNT, AUTOMATED 460 10^3/uL (150-450); RED BLOOD COUNT 3.22 10^6/uL (4.00-5.40); WHITE BLOOD COUNT 12.5 10^3/uL (4.0-10.0)
[2019-09-07] MEDS: ADVAIR HFA 115/21MCG INHALER INH SCH ×2 (07:49→21:00)
[2019-09-07] MEDS: ASPIRIN 81 MG CHEW TABLET PO SCH (08:27)
[2019-09-07] MEDS: LIDOCAINE 5% (LIDODERM) PATCH TD SCH (08:27)
[2019-09-07] MEDS: LEVEMIR (INSULIN DETEMIR) 1 UNITS/0.01ML SC SCH ×2 (08:27→20:51)
[2019-09-07] MEDS: HumaLOG INSULIN (NovoLOG) PER UNIT SC SCH ×4 (08:27→20:30)
[2019-09-07] MEDS: DOCUSATE SODIUM 100 MG CAP PO SCH ×2 (08:28→20:49)
[2019-09-07] MEDS: guaiFENesin ER 600 MG TAB PO SCH ×2 (08:28→20:52)
[2019-09-07] MEDS: SUCRALFATE SUSP 1GM/10ML UD PO SCH ×4 (08:28→20:51)
[2019-09-07] MEDS: VALPROIC ACID 250 MG CAP PO SCH ×3 (08:28→20:51)
[2019-09-07] MEDS: HYDROCORTISONE 10 MG TAB PO SCH ×2 (08:28→20:50)
[2019-09-07] MEDS: busPIRone 5 MG TAB PO SCH ×2 (08:28→20:49)
[2019-09-07] MEDS: APIXABAN 5 MG TAB (ELIQUIS) PO SCH ×2 (08:28→20:52)
[2019-09-07] MEDS: VITAMIN D 1,000 INTERNATIONAL UNITS TABLET PO SCH (08:28)
[2019-09-07] MEDS: FERROUS GLUCONATE 324 MG TAB PO SCH ×2 (08:28→20:51)
[2019-09-07] MEDS: AMIODARONE 200 MG TAB (PACERONE) PO SCH (08:28)
[2019-09-07] MEDS: FUROSEMIDE 40 MG TAB PO SCH (08:28)
[2019-09-07 14:00] VITALS: BP 122/93
[2019-09-07] MEDS ORDERED: FLUCONAZOLE 50MG TABLET PO ONE (17:45)
[2019-09-07 20:29] VITALS: BP 130/64
[2019-09-07] MEDS: traZODone 25MG PER 1/2 TABLET PO PRN (20:49)
[2019-09-07] MEDS: LACTOBACILLUS ACIDOPHILUS CAP (BACID) PO SCH (20:49)
[2019-09-07] MEDS: SENNA 8.6 MG TAB (SENOKOT) PO SCH (20:49)
[2019-09-07] MEDS: **NOTE PATIENT COMMENT** MISC XX SCH (20:52)
[2019-09-07] MEDS: GABAPENTIN 100 MG CAP PO SCH (20:52)
[2019-09-08] MEDS: traMADol 50 MG TAB PO PRN ×2 (00:46→16:23)
[2019-09-08] MEDS: IPRATROPIUM 0.5MG/ALBUTEROL 2.5MG INH SOL UD 3ML (DUONEB)(J7620) NEB SCH ×4 (02:00→20:14)
[2019-09-08 06:15] VITALS: BP 121/73
[2019-09-08] MEDS: ADVAIR HFA 115/21MCG INHALER INH SCH ×2 (07:38→20:14)
[2019-09-08] MEDS: HumaLOG INSULIN (NovoLOG) PER UNIT SC SCH ×4 (07:59→21:00)
[2019-09-08] MEDS: ASPIRIN 81 MG CHEW TABLET PO SCH (08:10)
[2019-09-08] MEDS: HYDROCORTISONE 10 MG TAB PO SCH ×2 (08:10→21:34)
[2019-09-08] MEDS: LEVEMIR (INSULIN DETEMIR) 1 UNITS/0.01ML SC SCH ×2 (08:10→21:35)
[2019-09-08] MEDS: busPIRone 5 MG TAB PO SCH ×2 (08:10→21:32)
[2019-09-08] MEDS: PANTOPRAZOLE 40MG TAB (PROTONIX) PO SCH (08:10)
[2019-09-08] MEDS: LACTOBACILLUS ACIDOPHILUS CAP (BACID) PO SCH ×3 (08:10→21:32)
[2019-09-08] MEDS: VITAMIN D 1,000 INTERNATIONAL UNITS TABLET PO SCH (08:10)
[2019-09-08] MEDS: SUCRALFATE SUSP 1GM/10ML UD PO SCH ×4 (08:10→21:30)
[2019-09-08] MEDS: VALPROIC ACID 250 MG CAP PO SCH ×3 (08:10→21:32)
[2019-09-08] MEDS: guaiFENesin ER 600 MG TAB PO SCH ×2 (08:10→21:34)
[2019-09-08] MEDS: DOCUSATE SODIUM 100 MG CAP PO SCH ×2 (08:11→21:00)
[2019-09-08] MEDS: APIXABAN 5 MG TAB (ELIQUIS) PO SCH ×2 (08:11→21:32)
[2019-09-08] MEDS: LIDOCAINE 5% (LIDODERM) PATCH TD SCH (08:11)
[2019-09-08] MEDS: FERROUS GLUCONATE 324 MG TAB PO SCH ×2 (08:12→21:32)
[2019-09-08] MEDS: FUROSEMIDE 40 MG TAB PO SCH (08:12)
[2019-09-08] MEDS ORDERED: GABA-1171 PO (11:52)
[2019-09-08] MEDS ORDERED: AMIO200T PO (11:52)
[2019-09-08] MEDS ORDERED: BUSP5TA PO (11:52)
[2019-09-08] MEDS ORDERED: ASPI81CH8 PO (11:52)
[2019-09-08] MEDS ORDERED: RISATAB3 PO (11:52)
[2019-09-08] MEDS ORDERED: CORT10TA PO (11:52)
[2019-09-08] MEDS ORDERED: FURO40TA2 PO (11:52)
[2019-09-08] MEDS ORDERED: INSUDET SC (11:52)
[2019-09-08] MEDS ORDERED: ELIQ5TAB PO (11:52)
[2019-09-08] MEDS ORDERED: CARD120C3 PO (11:52)
[2019-09-08] MEDS ORDERED: FUROSEMIDE 40 MG TAB PO SCH (12:00)
[2019-09-08 14:00] VITALS: BP 130/71
[2019-09-08] MEDS ORDERED: METF-877 PO (14:27)
[2019-09-08] MEDS: ACETAMINOPHEN TAB 650MG DOSE (2X325MG) PO PRN (17:36)
[2019-09-08] MEDS: SENNA 8.6 MG TAB (SENOKOT) PO SCH (21:00)
[2019-09-08] MEDS: GABAPENTIN 100 MG CAP PO SCH (21:34)
[2019-09-08] MEDS: **NOTE PATIENT COMMENT** MISC XX SCH (21:35)
[2019-09-08 22:00] VITALS: BP 127/58
[2019-09-09] MEDS: traMADol 50 MG TAB PO PRN (01:46)
[2019-09-09] MEDS: IPRATROPIUM 0.5MG/ALBUTEROL 2.5MG INH SOL UD 3ML (DUONEB)(J7620) NEB SCH ×2 (02:00→07:29)
[2019-09-09] MEDS: HumaLOG INSULIN (NovoLOG) PER UNIT SC SCH (07:30)
[2019-09-09] MEDS: ADVAIR HFA 115/21MCG INHALER INH SCH (07:30)
[2019-09-09] MEDS: LIDOCAINE 5% (LIDODERM) PATCH TD SCH (08:26)
[2019-09-09] MEDS: FERROUS GLUCONATE 324 MG TAB PO SCH (08:26)
[2019-09-09] MEDS: APIXABAN 5 MG TAB (ELIQUIS) PO SCH (08:26)
[2019-09-09] MEDS: AMIODARONE 200 MG TAB (PACERONE) PO SCH (08:26)
[2019-09-09] MEDS: LACTOBACILLUS ACIDOPHILUS CAP (BACID) PO SCH (08:26)
[2019-09-09] MEDS: FUROSEMIDE 40 MG TAB PO SCH (08:27)
[2019-09-09] MEDS: VITAMIN D 1,000 INTERNATIONAL UNITS TABLET PO SCH (08:27)
[2019-09-09] MEDS: VALPROIC ACID 250 MG CAP PO SCH (08:27)
[2019-09-09] MEDS: HYDROCORTISONE 10 MG TAB PO SCH (08:27)
[2019-09-09] MEDS: ASPIRIN 81 MG CHEW TABLET PO SCH (08:27)
[2019-09-09] MEDS: busPIRone 5 MG TAB PO SCH (08:27)
[2019-09-09] MEDS: SUCRALFATE SUSP 1GM/10ML UD PO SCH (08:27)
[2019-09-09] MEDS: DOCUSATE SODIUM 100 MG CAP PO SCH (08:27)
[2019-09-09 08:28] VITALS: BP 127/58
[2019-09-09] MEDS: guaiFENesin ER 600 MG TAB PO SCH (08:28)
[2019-09-09] MEDS: LEVEMIR (INSULIN DETEMIR) 1 UNITS/0.01ML SC SCH (08:28)
[2019-09-09] MEDS ORDERED: TRAM50TA2 PO (11:13)
--- NOTE | 2019-09-09 12:08 | IPNPDOC ---
PM&R Progress Note DATE OF SERVICE: Sep 07, 2019 Disc Recordist Progress Note Subjective: Patient reporting neck pain is better with tramadol and she is participating more in therapy for ADL management. REVIEW OF SYSTEMS: The following is a completed review of systems and has been reviewed. Review of systems otherwise unremarkable. PAIN: Patient self reports throat pain EYES: No recent vision changes EARS, NOSE, & THROAT: +throat pain- no dysphagia, or rhinorrhea. CARDIOVASCULAR: Denies chest pain or palpitations PULMONARY: Denies shortness of breath at rest GASTROINTESTINAL: Denies constipation/diarrhea GENITOURINARY: denies dysuria MUSCULOSKELETAL: cervical stenosis NEUROLOGICAL: +seizure hx HEMATOLOGICAL: no easy bruising SKIN: no rash PSYCHIATRIC: Unremarkable All other review of systems found to be negative. PHYSICAL EXAMINATION: VITAL SIGNS: Please see below. GENERAL: Pleasant and cooperative. No acute distress. HEENT: PERRL. Extraocular movements intact. Clear conjunctiva CARDIOVASCULAR: Irregular rate and rhythm. No murmurs, rubs, or gallops LUNGS: diminished lung sounds, No wheezes. + rhonchi ABDOMEN: Soft, nontender, nondistended. Positive bowel sounds. Normal active bowel sounds NEUROLOGICAL: Alert and oriented times three. Cranial nerves II through XII grossly intact. Sensation grossly intact EXTREMITIES: 5\5 strength left upper extremities. 5/5 right elbow flexion/extension, wrist extension, talent advisor, 3/5 abduction (limited due to arthritis) 5\5 strength right lower extremity. 5/5 strength in left lower extremity. SKIN: small protuberance on back of left thigh ASSESSMENT:74-year-old F with past medical history of COPD, diastolic CHF, Afib who presents status post CHF exacerbation PLAN: 1. Rehab: PT- strengthen/stretch/improve ROM bilat LE, teach energy conservation techniques, walking with RW OT- strengthen/stretch/improve ROM bilat UE, focus on right shoulder exercises, optimize ADL management 2. Neuro: pmh seizures- c/u Valproic Acid 3. CArdio: pmh Afib with SVTs, CAD with NSTEMI, diastolic CHF- c/u Amiodarone, Diltiazem, Lasix, and ASA- patient currently not on anticoagulation, has no hx of bleeding, discussed case with her lead machinist Jacobo palmer to start AC while on ARU 5mg BID -fluid restrict to 1800cc -medicine consulted to assist in management 4. Resp: pneumonia- c/u Azithromycin, Advair, Mucinex, and Duonebs -recent CT +for infiltrate, however per record cannot rule out neoplasm- to be followed by PMD -leukocytosis likely due to oral steroids 5. Endo: pmh DM c/u insulin, will decrease Levemir to 5mg BID given hypoglycemia today -adrenal insufficiency- on oral steroids 6. renal: recent JUAN CARLOS which resolved, will monitor 7. DVT ppx: Lovenox and teds 8. GI ppx: protonix q2d, c/u sucralfate while on steroids 9. Ortho: recent cervical stenosis s/p decompression and fusion June 2019 with bilat UE weakness- will address in therapy -c/u gabapentin 100qHS -will add tramadol prn pain 10. Psych- Buspar 5mg BID for anxiety and trazodone prn qHS for insomnia 11. - monitor PVRs, voiding well 12. Dispo: 09-09-19 to home, progressing towards goals Allergies Coded Allergies: propoxyphene (Verified Allergy, Intermediate, hives, 08/28/19) Vital Signs Vital Signs Date Time Temp Pulse Resp B/P (MAP) Pulse Ox O2 Delivery O2 Flow Rate FiO2 09/09/19 08:28 99 127/58 09/09/19 02:16 18 09/08/19 22:00 97.6 97 Room Air Laboratory Data Labs 24H Laboratory Tests 2 09/08/19 17:09: Bedside Glucose (Misc Panel) 262H 09/08/19 20:04: Bedside Glucose (Misc Panel) 136H 09/09/19 06:38: Bedside Glucose (Misc Panel) 105 Microbiology Microbiology 09/05/19 Urine Culture - Final, Complete Current Medications Current Medications Current Medications Medications (Trade) Dose Ordered Sig/Steven Route PRN Reason Start Time Stop Time Status Last Admin Dose Admin Acetaminophen (Tylenol Tab) 650 mg Q4HP PRN PO MILD PAIN (PS 1-4) 09/01/19 17:15 09/09/19 11:15 DC 09/08/19 17:36 Albuterol/ Ipratropium (Duoneb (Ipr 0.5mg/Alb 2.5mg)) 3 ml Q2HP PRN NEB SOB/WHEEZING 09/01/19 17:15 09/09/19 11:15 DC 09/03/19 20:26 Albuterol/ Ipratropium (Duoneb (Ipr 0.5mg/Alb 2.5mg)) 3 ml RQ6H NEB 09/01/19 20:00 09/09/19 11:15 DC 09/09/19 07:29 Amiodarone HCl (Pacerone, Cordarone) 200 mg MoWeFr@0900 PO 09/02/19 09:00 09/02/19 09:49 DC Amiodarone HCl (Pacerone, Cordarone) 200 mg MoWeFr@0900 PO 09/02/19 09:49 09/09/19 11:15 DC 09/09/19 08:26 Apixaban (Eliquis) 5 mg BID PO 09/04/19 09:00 09/09/19 11:15 DC 09/09/19 08:26 Aspirin (Aspirin Chewable) 81 mg DAILY PO 09/02/19 09:00 09/09/19 11:15 DC 09/09/19 08:27 Azithromycin (Zithromax Tab) 500 mg DAILY PO 09/02/19 09:00 09/05/19 01:05 DC 09/04/19 09:18 Bisacodyl (Dulcolax Suppository) 10 mg DAILYPRN PRN [place] CONSTIPATION 09/01/19 17:15 09/09/19 11:15 DC 09/02/19 20:11 Buspirone HCl (Buspar) 5 mg BID PO 09/01/19 21:00 09/09/19 11:15 DC 09/09/19 08:27 Cetylpyridinium Chloride (Cepacol) 1 mita Q2HP PRN PO COUGH 09/01/19 17:15 09/09/19 11:15 DC Dextrose (Dextrose 50%) 25 ml ASDIRECTED PRN IV SEE LABEL COMMENTS 09/01/19 17:15 09/09/19 11:15 DC Diltiazem HCl (Cardizem Cd) 240 mg BID PO 09/01/19 21:00 09/09/19 11:15 DC 09/09/19 08:28 Docusate Sodium (Colace) 100 mg BID PO 09/01/19 21:00 09/09/19 11:15 DC 09/09/19 08:27 Enoxaparin Sodium (Lovenox) 40 mg DAILY SC 09/02/19 09:00 09/03/19 10:21 DC 09/03/19 09:07 Ferrous Gluconate (Fergon) 324 mg BID PO 09/01/19 21:00 09/09/19 11:15 DC 09/09/19 08:26 Furosemide (Lasix) 40 mg DAILY PO 09/02/19 09:00 09/09/19 11:15 DC 09/09/19 08:27 Furosemide (Lasix) 40 mg DAILY PO 09/08/19 12:00 UNV Gabapentin (Neurontin) 100 mg QHS PO 09/01/19 21:00 09/09/19 11:15 DC 09/08/19 21:34 Glucagon (Glucagon) 1 mg ASDIRECTED PRN SC SEE LABEL COMMENTS 09/01/19 17:15 09/09/19 11:15 DC Glucose (Glucose) 16 GM ASDIRECTED PRN PO SEE LABEL COMMENTS 09/01/19 17:15 09/09/19 11:15 DC Guaifenesin (Mucinex Tab Er) 600 mg BID PO 09/01/19 21:00 09/09/19 11:15 DC 09/09/19 08:28 Hydrocortisone (Cortef) 20 mg BID PO 09/01/19 21:00 09/09/19 11:15 DC 09/09/19 08:27 Insulin Detemir (Levemir Insulin) 5 units BID SC 09/03/19 21:00 09/05/19 12:28 DC 09/05/19 08:40 Insulin Detemir (Levemir Insulin) 10 units BID SC 09/01/19 21:00 09/03/19 18:21 DC 09/03/19 09:07 Insulin Detemir (Levemir Insulin) 10 units BID SC 09/05/19 21:00 09/09/19 11:15 DC 09/09/19 08:28 Insulin Human Lispro (HumaLOG INSULIN) SEE PROTOCOL TABLE AC SC 09/01/19 17:30 09/09/19 11:15 DC 09/08/19 17:29 Insulin Human Lispro (HumaLOG INSULIN) SEE PROTOCOL TABLE QHS SC 09/01/19 21:00 09/09/19 11:15 DC 09/05/19 20:48 Lactobacillus Acidophilus (Bacid) 1 ea TID PO 09/07/19 21:00 09/09/19 11:15 DC 09/09/19 08:26 Lidocaine (Lidoderm Patch) 1 patch DAILY TD 09/02/19 09:00 09/09/19 11:15 DC 09/09/19 08:26 Magnesium Hydroxide (Milk Of Magnesia) 30 ml DAILYPRN PRN PO CONSTIPATION 09/06/19 02:00 09/09/19 11:15 DC 09/06/19 13:10 Non-Formulary Medication ( See Comment Field Below ) REMOVE LIDODERM PATCH DAILY@21 XX 09/01/19 21:00 09/09/19 11:15 DC 09/08/19 21:35 Pantoprazole Sodium (Protonix) 40 mg Q2D PO 09/02/19 09:00 09/09/19 11:15 DC 09/08/19 08:10 Salmeterol Xinafoate/ Fluticasone (Advair Hfa 115/ 21) 2 puff BID INH 09/01/19 21:00 09/09/19 11:15 DC 09/09/19 07:30 Salmeterol Xinafoate/ Fluticasone (Advair Hfa 230/ 21) 2 puff BID INH 09/01/19 21:00 UNV Senna (Senokot) 1 tab QHS PO 09/01/19 21:00 09/09/19 11:15 DC 09/07/19 20:49 Sucralfate (Carafate Suspension) 1 gm ACHS PO 09/01/19 17:30 09/09/19 11:15 DC 09/09/19 08:27 Tramadol HCl (Ultram) 50 mg Q6HP PRN PO MODERATE PAIN (PS 5-7) 09/04/19 18:30 09/09/19 11:15 DC 09/09/19 01:46 Trazodone HCl (Desyrel) 25 mg QHSP PRN PO INSOMNIA 09/01/19 19:45 09/09/19 11:15 DC 09/07/19 20:49 Valproic Acid (Depakene) 250 mg TID PO 09/01/19 21:00 09/09/19 11:15 DC 09/09/19 08:27 Vitamin D (Vitamin D) 2,000 units DAILY PO 09/02/19 09:00 09/09/19 11:15 DC 09/09/19 08:27 HANH KUMAR MD Sep 09, 2019 12:08
--- NOTE | 2019-09-09 12:09 | IPNPDOC ---
PM&R Progress Note DATE OF SERVICE: Sep 08, 2019 Nipple Machine Operator Progress Note Subjective: Patient reporting she is feeling stronger and eager to see her grandchildren and dogs for Halloween. REVIEW OF SYSTEMS: The following is a completed review of systems and has been reviewed. Review of systems otherwise unremarkable. PAIN: Patient self reports throat pain EYES: No recent vision changes EARS, NOSE, & THROAT: denies throat pain- no dysphagia, or rhinorrhea. CARDIOVASCULAR: Denies chest pain or palpitations PULMONARY: Denies shortness of breath at rest GASTROINTESTINAL: Denies constipation/diarrhea GENITOURINARY: denies dysuria MUSCULOSKELETAL: cervical stenosis NEUROLOGICAL: +seizure hx HEMATOLOGICAL: no easy bruising SKIN: no rash PSYCHIATRIC: Unremarkable All other review of systems found to be negative. PHYSICAL EXAMINATION: VITAL SIGNS: Please see below. GENERAL: Pleasant and cooperative. No acute distress. HEENT: PERRL. Extraocular movements intact. Clear conjunctiva CARDIOVASCULAR: Irregular rate and rhythm. No murmurs, rubs, or gallops LUNGS: diminished lung sounds, No wheezes. + rhonchi ABDOMEN: Soft, nontender, nondistended. Positive bowel sounds. Normal active bowel sounds NEUROLOGICAL: Alert and oriented times three. Cranial nerves II through XII grossly intact. Sensation grossly intact EXTREMITIES: 5\5 strength left upper extremities. 5/5 right elbow flexion/extension, wrist extension, starter mechanic, 3/5 abduction (limited due to arthritis) 5\5 strength right lower extremity. 5/5 strength in left lower extremity. SKIN: small protuberance on back of left thigh ASSESSMENT:74-year-old F with past medical history of COPD, diastolic CHF, Afib who presents status post CHF exacerbation PLAN: 1. Rehab: PT- strengthen/stretch/improve ROM bilat LE, teach energy conservation techniques, walking with RW-room privileges OT- strengthen/stretch/improve ROM bilat UE, focus on right shoulder exercises, optimize ADL management 2. Neuro: pmh seizures- c/u Valproic Acid 3. CArdio: pmh Afib with SVTs, CAD with NSTEMI, diastolic CHF- c/u Amiodarone, Diltiazem, Lasix, and ASA- patient currently not on anticoagulation, has no hx of bleeding, discussed case with her emergency technician Jacobo palmer to start AC while on ARU 5mg BID -fluid restrict to 1800cc -medicine consulted to assist in management 4. Resp: pneumonia- c/u Azithromycin, Advair, Mucinex, and Duonebs -recent CT +for infiltrate, however per record cannot rule out neoplasm- to be followed by PMD -leukocytosis likely due to oral steroids 5. Endo: pmh DM c/u insulin, will decrease Levemir to 5mg BID given hypoglycemia today -adrenal insufficiency- on oral steroids 6. renal: recent JUAN CARLOS which resolved, will monitor 7. DVT ppx: Lovenox and teds 8. GI ppx: protonix q2d, c/u sucralfate while on steroids 9. Ortho: recent cervical stenosis s/p decompression and fusion June 2019 with bilat UE weakness- will address in therapy -c/u gabapentin 100qHS -will add tramadol prn pain 10. Psych- Buspar 5mg BID for anxiety and trazodone prn qHS for insomnia 11. - monitor PVRs, voiding well 12. Dispo: 09-09-19 to home, progressing towards goals Allergies Coded Allergies: propoxyphene (Verified Allergy, Intermediate, hives, 08/28/19) Vital Signs Vital Signs Date Time Temp Pulse Resp B/P (MAP) Pulse Ox O2 Delivery O2 Flow Rate FiO2 09/09/19 08:28 99 127/58 09/09/19 02:16 18 09/08/19 22:00 97.6 97 Room Air Laboratory Data Labs 24H Laboratory Tests 2 09/08/19 17:09: Bedside Glucose (Misc Panel) 262H 09/08/19 20:04: Bedside Glucose (Misc Panel) 136H 09/09/19 06:38: Bedside Glucose (Misc Panel) 105 Microbiology Microbiology 09/05/19 Urine Culture - Final, Complete Current Medications Current Medications Current Medications Medications (Trade) Dose Ordered Sig/Steven Route PRN Reason Start Time Stop Time Status Last Admin Dose Admin Acetaminophen (Tylenol Tab) 650 mg Q4HP PRN PO MILD PAIN (PS 1-4) 09/01/19 17:15 09/09/19 11:15 DC 09/08/19 17:36 Albuterol/ Ipratropium (Duoneb (Ipr 0.5mg/Alb 2.5mg)) 3 ml Q2HP PRN NEB SOB/WHEEZING 09/01/19 17:15 09/09/19 11:15 DC 09/03/19 20:26 Albuterol/ Ipratropium (Duoneb (Ipr 0.5mg/Alb 2.5mg)) 3 ml RQ6H NEB 09/01/19 20:00 09/09/19 11:15 DC 09/09/19 07:29 Amiodarone HCl (Pacerone, Cordarone) 200 mg MoWeFr@0900 PO 09/02/19 09:00 09/02/19 09:49 DC Amiodarone HCl (Pacerone, Cordarone) 200 mg MoWeFr@0900 PO 09/02/19 09:49 09/09/19 11:15 DC 09/09/19 08:26 Apixaban (Eliquis) 5 mg BID PO 09/04/19 09:00 09/09/19 11:15 DC 09/09/19 08:26 Aspirin (Aspirin Chewable) 81 mg DAILY PO 09/02/19 09:00 09/09/19 11:15 DC 09/09/19 08:27 Azithromycin (Zithromax Tab) 500 mg DAILY PO 09/02/19 09:00 09/05/19 01:05 DC 09/04/19 09:18 Bisacodyl (Dulcolax Suppository) 10 mg DAILYPRN PRN [place] CONSTIPATION 09/01/19 17:15 09/09/19 11:15 DC 09/02/19 20:11 Buspirone HCl (Buspar) 5 mg BID PO 09/01/19 21:00 09/09/19 11:15 DC 09/09/19 08:27 Cetylpyridinium Chloride (Cepacol) 1 mita Q2HP PRN PO COUGH 09/01/19 17:15 09/09/19 11:15 DC Dextrose (Dextrose 50%) 25 ml ASDIRECTED PRN IV SEE LABEL COMMENTS 09/01/19 17:15 09/09/19 11:15 DC Diltiazem HCl (Cardizem Cd) 240 mg BID PO 09/01/19 21:00 09/09/19 11:15 DC 09/09/19 08:28 Docusate Sodium (Colace) 100 mg BID PO 09/01/19 21:00 09/09/19 11:15 DC 09/09/19 08:27 Enoxaparin Sodium (Lovenox) 40 mg DAILY SC 09/02/19 09:00 09/03/19 10:21 DC 09/03/19 09:07 Ferrous Gluconate (Fergon) 324 mg BID PO 09/01/19 21:00 09/09/19 11:15 DC 09/09/19 08:26 Furosemide (Lasix) 40 mg DAILY PO 09/02/19 09:00 09/09/19 11:15 DC 09/09/19 08:27 Furosemide (Lasix) 40 mg DAILY PO 09/08/19 12:00 UNV Gabapentin (Neurontin) 100 mg QHS PO 09/01/19 21:00 09/09/19 11:15 DC 09/08/19 21:34 Glucagon (Glucagon) 1 mg ASDIRECTED PRN SC SEE LABEL COMMENTS 09/01/19 17:15 09/09/19 11:15 DC Glucose (Glucose) 16 GM ASDIRECTED PRN PO SEE LABEL COMMENTS 09/01/19 17:15 09/09/19 11:15 DC Guaifenesin (Mucinex Tab Er) 600 mg BID PO 09/01/19 21:00 09/09/19 11:15 DC 09/09/19 08:28 Hydrocortisone (Cortef) 20 mg BID PO 09/01/19 21:00 09/09/19 11:15 DC 09/09/19 08:27 Insulin Detemir (Levemir Insulin) 5 units BID SC 09/03/19 21:00 09/05/19 12:28 DC 09/05/19 08:40 Insulin Detemir (Levemir Insulin) 10 units BID SC 09/01/19 21:00 09/03/19 18:21 DC 09/03/19 09:07 Insulin Detemir (Levemir Insulin) 10 units BID SC 09/05/19 21:00 09/09/19 11:15 DC 09/09/19 08:28 Insulin Human Lispro (HumaLOG INSULIN) SEE PROTOCOL TABLE AC SC 09/01/19 17:30 09/09/19 11:15 DC 09/08/19 17:29 Insulin Human Lispro (HumaLOG INSULIN) SEE PROTOCOL TABLE QHS SC 09/01/19 21:00 09/09/19 11:15 DC 09/05/19 20:48 Lactobacillus Acidophilus (Bacid) 1 ea TID PO 09/07/19 21:00 09/09/19 11:15 DC 09/09/19 08:26 Lidocaine (Lidoderm Patch) 1 patch DAILY TD 09/02/19 09:00 09/09/19 11:15 DC 09/09/19 08:26 Magnesium Hydroxide (Milk Of Magnesia) 30 ml DAILYPRN PRN PO CONSTIPATION 09/06/19 02:00 09/09/19 11:15 DC 09/06/19 13:10 Non-Formulary Medication ( See Comment Field Below ) REMOVE LIDODERM PATCH DAILY@21 XX 09/01/19 21:00 09/09/19 11:15 DC 09/08/19 21:35 Pantoprazole Sodium (Protonix) 40 mg Q2D PO 09/02/19 09:00 09/09/19 11:15 DC 09/08/19 08:10 Salmeterol Xinafoate/ Fluticasone (Advair Hfa 115/ 21) 2 puff BID INH 09/01/19 21:00 09/09/19 11:15 DC 09/09/19 07:30 Salmeterol Xinafoate/ Fluticasone (Advair Hfa 230/ 21) 2 puff BID INH 09/01/19 21:00 UNV Senna (Senokot) 1 tab QHS PO 09/01/19 21:00 09/09/19 11:15 DC 09/07/19 20:49 Sucralfate (Carafate Suspension) 1 gm ACHS PO 09/01/19 17:30 09/09/19 11:15 DC 09/09/19 08:27 Tramadol HCl (Ultram) 50 mg Q6HP PRN PO MODERATE PAIN (PS 5-7) 09/04/19 18:30 09/09/19 11:15 DC 09/09/19 01:46 Trazodone HCl (Desyrel) 25 mg QHSP PRN PO INSOMNIA 09/01/19 19:45 09/09/19 11:15 DC 09/07/19 20:49 Valproic Acid (Depakene) 250 mg TID PO 09/01/19 21:00 09/09/19 11:15 DC 09/09/19 08:27 Vitamin D (Vitamin D) 2,000 units DAILY PO 09/02/19 09:00 09/09/19 11:15 DC 09/09/19 08:27 HANH KUMAR MD Sep 09, 2019 12:09
--- NOTE | 2019-10-07 13:32 | PMRDS ---
DATE OF ADMISSION: 09/01/2019 DATE OF DISCHARGE: 09/09/2019 CHIEF COMPLAINT/DISCHARGE DIAGNOSIS: Congestive heart failure (CHF) exacerbation. HISTORY OF PRESENT ILLNESS: 74-year-old female with a past medical history of chronic obstructive pulmonary disease (COPD), coronary artery disease, with [id number] myocardial infarction (NSTEMI), atrial fibrillation, gastroesophageal reflux disease, supraventricular tachycardia (SVT), diastolic CHF, adrenal insufficiency, seizure disorder, obstructive sleep apnea, anxiety who presented to [facility] emergency department on 08/28/2019 with worsening shortness of breath and leg swelling, reporting worsening symptoms over the past few months. She was admitted for CHF exacerbation with chest x-ray showing "prominent interstitial markings with vascular congestion consistent with CHF." CT of the chest showed "right lower and right middle lobe pneumonia...rule out the possibility of neoplastic change." The patient was diuresed and started on antibiotics with blood cultures coming back negative. She was found to be in atrial fibrillation and her diltiazem dose was ultimately increased. She also received an extra dose of hydrocortisone out of concern for adrenal insufficiency and she was started on Florinef and then later stopped. She electrolyte imbalances and acute kidney injury for which nephrology was consulted and her cardiorenal syndrome gradually improved. She was evaluated by therapy noted to be below her prior level of function for mobility in activities of daily living and deemed appropriate for discharge to ARU on 09/01/2019. PAST MEDICAL HISTORY: As per history of present illness. HOSPITAL COURSE: The patient was admitted on a comprehensive physical therapy (PT) and occupational therapy (OT) program. She received 24-hour nursing supervision and weekly team meetings were held to discuss her progress. The patient was maintained on her amiodarone, diltiazem, Lasix and aspirin for history of a fib, case was discussed with her workers compensation attorney Dr. Zepeda, who agreed to start her on anticoagulation, for which she was started on Eliquis. Her Levemir dosing was lowered during her hospital course for episodes of hypoglycemia and her JUAN CARLOS resolved. She was started on sucralfate while on steroids and continued on Protonix every two days. She had bilateral upper extremity weakness since her recent history of cervical stenosis status post decompression and was treated with tramadol and gabapentin for pain. Overall, the patient did well in therapy and made significant gains and was deemed medically and functionally stable to return home. Discharge medications as per instructions. FUNCTIONAL HISTORY ON DISCHARGE: The patient was modified independent for functional transfers, able to ambulate 200 feet and in occupational therapy she was modified independent for toileting, standby assist for bathing and lower body dressing. Thank you for this referral.
== END 2019-09-09 11:10 | disposition home or self-care (01) | DRG 556 ==
LOC: M PM&R 14:00
PROVIDERS: ADMIT Physical Medicine & Rehabilitation; ATTEND Physical Medicine & Rehabilitation
DX: M62.81 Muscle weakness (generalized) (principal); I50.32 Chronic diastolic (congestive) heart failure; I48.20 Chronic atrial fibrillation, unspecified; E27.40 Unspecified adrenocortical insufficiency; K21.9 Gastro-esophageal reflux disease without esophagitis; G40.909 Epilepsy, unspecified, not intractable, without status epilepticus; I25.2 Old myocardial infarction; J44.9 Chronic obstructive pulmonary disease, unspecified; I25.10 Atherosclerotic heart disease of native coronary artery without angina pectoris; G47.33 Obstructive sleep apnea (adult) (pediatric); Z87.891 Personal history of nicotine dependence; E11.65 Type 2 diabetes mellitus with hyperglycemia; I11.0 Hypertensive heart disease with heart failure; F41.9 Anxiety disorder, unspecified

== ENCOUNTER → 2019-09-22 | Outpatient (REF) | payer MEDICARE ==
[~2019-09-22] MED LIST changes: +ASPI81CH8 PO; +CARD120C3 PO; +ELIQ5TAB PO; +INSUDET SC; +RISATAB3 PO; +SIMV10TA2 PO; -SIMV10TA21 PO
[2019-09-22 17:00] LABS: PERCENT SATURATION 6.7 % (13.2-45.0)
== END ==
LOC: M LAB REF 16:15
PROVIDERS: ATTEND Internal Medicine
DX: D64.9 Anemia, unspecified (principal)

== ENCOUNTER → 2019-11-23 | Outpatient (CLI) | payer MEDICARE ==
[~2019-11-23] MED LIST changes: -GLIM1TAB2 PO; +GLIM1TAB4 PO; -SIMV10TA2 PO; +SIMV10TA21 PO
--- NOTE | 2019-11-24 08:38 | REP ---
MRI right shoulder without contrast: History: Rule out rotator cuff tear. Shoulder pain for 8 months. Injury in a fall approximately 1 year ago. Incomplete rotator cuff tear/rupture of right shoulder, not trauma. Technique: Axial, oblique coronal, and oblique sagittal imaging planes were utilized. T1 and T2-weighted scans were included with and without fat saturation. Comparison radiographs of the right shoulder are from March 10, 2019. MRI findings: Cortical and medullary bone signal intensity are normal. There is no evidence of occult fracture. There is a moderate right glenohumeral joint effusion. There is osteoarthritis with hypertrophy and some synovial fluid at the acromioclavicular joint. There is minimal articular spurring at the inferior aspect of the glenoid. There is a complete retracted supraspinatus cuff tear with narrowing of the subacromial space and superior subluxation of the humeral head as a result. Subacromial subdeltoid bursal fluid is seen communicating with the glenohumeral articulation. The infraspinatus tendon is intact. The subscapularis tendon is irregular and attenuated and is likely torn as well. The biceps tendon appears attenuated and is not definitely visible in the bony bicipital groove. There is some fraying of the anterior labral cartilage. There is atrophy of the supraspinatus muscle. Impression: Full-thickness retracted tear supraspinatus tendon. Significant tear suspected in the subscapularis tendon. Biceps tendon is not well seen and does not appear to be present in the bony bicipital groove. Glenohumeral and subacromial subdeltoid effusions. AC joint osteoarthritis. Electronically Signed by Mauricio Mcrae MD 11/24/2019 08:52 A
== END ==
LOC: M RAD 17:48
PROVIDERS: ATTEND Orthopaedic Surgery Hand Surgery
DX: M75.111 Incomplete rotator cuff tear or rupture of right shoulder, not specified as traumatic (principal)

== ENCOUNTER 2020-01-10 21:02 | Emergency (ER) | payer MEDICARE, MEDICAID ==
[~2020-01-10] VITALS: Ht 154.9 cm; Wt 50.9 kg
[~2020-01-10 21:02] MED LIST changes: -ROPI0.5T; +ROPI0.5T3; -ROPI1TAB PO; +ROPI1TAB3 PO
[2020-01-10] MEDS ORDERED: PERCOCET 5MG/325MG TAB PO ONE (23:00)
[2020-01-10] MEDS ORDERED: ACETAMINOPHEN TAB 650MG DOSE (2X325MG) PO ONE (23:00)
--- NOTE | 2020-01-10 23:29 | REPVR ---
PROCEDURE INFORMATION: Exam: XR Left Ribs with PA Chest, 3 Views Exam date and time: 01/10/2020 10:23 PM Age: 74 years old Clinical indication: Painful respiration; Patient HX: Left lower rib pain from bending over washing machine. ; Additional info: Wallace a pop when bending over TECHNIQUE: Imaging protocol: XR Left ribs 3 views with PA chest. COMPARISON: CR PORTABLE CHEST X-RAY 2019-08-31 14:17 FINDINGS: Lungs: Unchanged chronic lung opacities. Pleural space: Unremarkable. No pleural effusion. No pneumothorax. Heart/Mediastinum: Unremarkable. No cardiomegaly. Vasculature: Extensive vascular calcifications. Bones/joints: Chronic left humeral fracture. Left lateral 6th rib subtle fracture deformity. Left lateral 8th rib subtle fracture deformity. IMPRESSION: Left lateral 6th rib subtle fracture deformity. Left lateral 8th rib subtle fracture deformity. Electronically signed by: Colin Perez On 01/10/2020 23:28:48 PM
[2020-01-11] MEDS ORDERED: PERC5TAB12 PO (00:06)
[2020-01-11] MEDS ORDERED: OXYCODONE/APAP 5MG/325MG(BULK FOR ED) 1 TABLET PO ONE (00:15)
[2020-01-11 00:34] VITALS: BP 162/74
== END 2020-01-11 00:36 | disposition home or self-care (01) ==
LOC: M ED 21:02
DX: S22.42XA Multiple fractures of ribs, left side, initial encounter for closed fracture (principal); X50.0XXA Overexertion from strenuous movement or load, initial encounter; Y92.9 Unspecified place or not applicable; I11.0 Hypertensive heart disease with heart failure; E11.9 Type 2 diabetes mellitus without complications; E78.5 Hyperlipidemia, unspecified; K21.9 Gastro-esophageal reflux disease without esophagitis; J44.9 Chronic obstructive pulmonary disease, unspecified; Z88.6 Allergy status to analgesic agent; Z79.4 Long term (current) use of insulin; Z79.82 Long term (current) use of aspirin; Z79.84 Long term (current) use of oral hypoglycemic drugs; Z79.899 Other long term (current) drug therapy

== ENCOUNTER → 2020-02-02 | Outpatient (CLI) | payer MEDICARE, MEDICAID ==
[~2020-02-02] MED LIST changes: +PERC5TAB12 PO
--- NOTE | 2020-02-17 02:37 | ECWPNPC ---
PATIENT NAME: MARCELINO FOWLER I : 1945 GENDER: FEMALE VISIT DATE: 02/02/2020 DISCHARGE DATE: 02/02/20 1222 VISIT LOCKED DATE TIME: PHYSICIAN: DAVON MA RESOURCE: DAVON MA REASON FOR APPOINTMENT 1. RT SHOULDER- *HCP CLEAR* HISTORY OF PRESENT ILLNESS PAIN SCREENIN-YEAR-OLD FEMALE BEING REFERRED BY [facility] FOR PERSISTENT RIGHT SHOULDER PAIN. HISTORY OF MULTIPLE FALL INJURIES. SUFFERS FROM A LARGE ROTATOR CUFF TEAR. HISTORY OF MULTIPLE COMORBIDITIES . SHE IS A POOR CANDIDATE FOR RIGHT SHOULDER REVERSE ARTHROPLASTY. PAIN IS AGGRAVATED WITH USE OF RIGHT ARM. PAIN IS RELIEVED SOMEWHAT WITH REST AND HEAT. RATING PAIN INTENSITY 6/10 VAS. ACCOMPANIED IN THE EXAM ROOM WITH HER . PATIENT HAS A COMPLAINT OF ACUTE OR CHRONIC PAIN :YES FALL RISK SCREENING: SCREENING :NO FALLS REPORTED IN THE LAST YEAR CURRENT MEDICATIONS TAKING MAGNESIUM 400 MG CAPSULE 1 CAPSULES AT BEDTIME NEEDED ORALLY ONCE A DAY TAKING IRON COMPLEX - CAPSULE DIRECTED ORALLY TAKING ELIQUIS 5 MG TABLET DIRECTED ORALLY TAKING BUSPIRONE HCL 5 MG TABLET 1 TABLET ORALLY BID TAKING METFORMIN HCL 1000 MG TABLET 1 TABLET WITH A MEAL ORALLY BID TAKING IPRATROPIUM-ALBUTEROL 0.5-2.5 (3) MG/3ML SOLUTION 3 ML NEEDED INHALATION EVERY 6 HRS TAKING BREO ELLIPTA 200-25 MCG/INH AEROSOL POWDER BREATH ACTIVATED 1 PUFF INHALATION ONCE A DAY TAKING ALENDRONATE SODIUM 70 MG TABLET 1 CAP ORALLY WEEKLY TAKING VITAMIN D3 HIGH POTENCY 25 MCG (1000 UT) CAPSULE 1 CAPSULE ORALLY ONCE A DAY TAKING ACETAMINOPHEN 500 MG CAPSULE 1-2 TABS ORALLY EVERY 6 HRS NEEDED TAKING AMIODARONE HCL 200 MG TABLET 1 TABLET ORALLY ONCE A DAY TAKING ASPIR-LOW 81 MG TABLET DELAYED RELEASE 1 TABLET ORALLY ONCE A DAY TAKING CALCIUM CARBONATE-VIT D-MIN 600-400 MG-UNIT TABLET 1 TABLET WITH FOOD ORALLY TWICE A DAY TAKING FERROUS SULFATE 325 MG CAPSULE DIRECTED ORALLY TAKING FUROSEMIDE 40 MG TABLET DIRECTED ORALLY DAILY TAKING SALMETEROL XINAFOATE 50 MCG/DOSE AEROSOL POWDER BREATH ACTIVATED 1 PUFF INHALATION TWICE A DAY TAKING CARTIA XT 240 MG CAPSULE EXTENDED RELEASE 24 HOUR 1 CAPSULE ORALLY ONCE A DAY TAKING VITAMIN B-12 500 MCG TABLET 1 TABLET ORALLY ONCE A DAY TAKING ROPINIROLE HCL 1 MG TABLET 1 TABLET 1 TO 3 HOURS BEFORE BEDTIME ORALLY ONCE A DAY TAKING LEVEMIR 100 UNIT/ML SOLUTION DIRECTED SUBCUTANEOUS TAKING HYDROCORTISONE 10 MG TABLET ORALLY TAKE 2 TABS BY MOUTH EVERY MORNING AND TAKE ONE TAB AT BEDTIME NOT-TAKING VALIUM 2 MG TABLET 1 TABLET NEEDED ORALLY ONCE A DAY, NOTES: PRIOR TO MRI AND DIRECTED NOT-TAKING NORCO 5-325 MG TABLET 1 TABLET NEEDED ORALLY EVERY 6 HRS NOT-TAKING CLARITIN 10 MG TABLET 1 TABLET ORALLY ONCE A DAY NOT-TAKING VALPROIC ACID 250 MG CAPSULE 1 CAPSULE ORALLY THREE TIMES A DAY NOT-TAKING METOPROLOL TARTRATE 25 MG TABLET 1 TABLET WITH FOOD ORALLY TWICE A DAY NOT-TAKING CALCIUM CARB-CHOLECALCIFEROL 600-400 MG-UNIT TABLET 1 TABLET WITH A MEAL ORALLY ONCE A DAY NOT-TAKING CYANOCOBALAMIN 100 MCG TABLET DIRECTED ORALLY NOT-TAKING PANTOPRAZOLE SODIUM 40 MG TABLET DELAYED RELEASE 1 TABLET ORALLY ONCE A DAY NOT-TAKING DILT-XR 120 MG CAPSULE EXTENDED RELEASE 24 HOUR 1 CAPSULE ORALLY ONCE A DAY MEDICATION LIST REVIEWED AND RECONCILED WITH THE PATIENT PAST MEDICAL HISTORY CLOSED FRACTURE OF THE METATARSAL BONE ADRENAL CORTICAL HYPOFUNCTION COPD WITH ACUTE EXACERBATIONS CONTUSION OF CHEST CORONARY ARTERIOSCLEROSIS LEUKOCYTOSIS NON-SPECIFIC COLITIS SEIZURE DISORDER SPRAIN OF COSTAL CARTILAGE SHOULDER STRAIN SUPRAVENTRICUALR TACHYCARDIA TABACCO USE ESSENTIAL HYPERTENSION PURE HYPERCHOLESTEROLEMIA ALLERGIES DARVON: ALLERGY SURGICAL HISTORY SPINAL SURGERY BILATERAL CATARACT FAMILY HISTORY FATHER: MOTHER: 1 SON(S) , 2 DAUGHTER(S) . FATHER- HEART DISEASEMOTHER- HEART DISEASE1 SON . SOCIAL HISTORY GENERAL: TOBACCO USE ARE YOU A:FORMER SMOKER VAPORNO E-CIGARETTENO OTHERS AT HOME: SPOUSE. HOUSING: OWNS HOME. DIET: REGULAR. LANGUAGE LANGUAGES SPOKEN:HEBREW NEW PATIENT PAIN DIARY TODAY'S VISIT 02/02/2020 PATIENT DESCRIBES PAIN :ACHING, HAVE IT ALL THE TIME, SHARP, THROBBING, SORE FROM 0-10, WHAT LEVEL IS YOUR PAIN TODAY?6 PRECIPITATING FACTORS MOVEMENT. USE OF ARM ALLEVIATING FACTORS HEAT, REST IMPACT ON FUNCTION RESTRICTED USE OF ARM NAME OF PERSON DRIVING YOU HOME HCP IS THERE A CHANCE YOU COULD BE ?NO HAVE YOU BEEN SICK IN THE LAST WEEK (COLD, COUGH, FEVER, FLU, ETC)NO DO YOU TAKE ANY BLOOD THINNERS?NO DO YOU HAVE ANY RASHES OR OPEN SORES?NO ANY CHANGE IN BOWEL OR BLADDER CONTROL?NO ARE YOU ALLERGIC TO SHELLFISH OR IV DYE?NO ARE YOU DIABETIC?NO DO YOU HAVE A PACEMAKER OR DEFIBRILLATOR?NO ANY NEW PROBLEMS WITH MEDICINES OR NEW ALLERGIESNO ANY NEW PATTERNS OF PAIN OR NUMBNESS?NO ANY CHANGE IN YOUR MEDICAL CONDITION?NO HAVE YOU FALLEN IN THE LAST 6 MONTHS?NO DO YOU USE ANY TYPE OF TOBACCO (SMOKE, SMOKELESS, CHEW, ETC.)NO ARE YOU ABUSED, NEGLECTED, OR IN AN UNSAFE ENVIRONMENT?NO DO YOU HAVE THOUGHTS OF HURTING YOURSELF OR SOMEONE ELSE?NO DO YOU NEED ANY PRESCRIPTIONS?NO DO YOU HAVE ANY OTHER QUESTIONS OR CONCERNS?NO INTENSITY SCALE REVIEWEDNUMBER RECREATIONAL DRUG USE DRUG USE?NO PATIENT DENIES ABUSE OR MISSUSED OF ANY MEDICATION DENIES PATIENT DENIES USE OF ANY ILLEGAL SUBSTANCE INCLUDING MARIJUANA OR COCAINE DENIES EXERCISE: NO REGULAR EXERCISE. 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 NEEDED?NO PAIN CLINIC PFS, CLERGY, PUBLIC HEALTH REFERRALS PFS REFERRAL NEEDED?NO CLERGY REFERRAL NEEDED?NO PUBLIC HEALTH REFERRAL NEEDED?NO WAS THE PROVIDER NOTIFIED OF ANY PERTINENT INFO?YES HAS THE PATIENT BEEN EDUCATED REGARDING HIS/HER PLAN OF CARE?YES HAS THE PATIENT BEEN EDUCATED REGARDING PAIN, THE RISK FOR PAIN, THE IMPORTANCE OF EFFECTIVE PAIN MANAGEMENT, AND THE PAIN ASSESSMENT PROCESS?YES LATEX QUESTIONNAIRE LATEX ALLERGY : HAVE YOU EVER DEVELOPED ANY TYPE OF REACTION AFTER HANDLING LATEX PRODUCTS SUCH RUBBER GLOVES, CONDOMS, DIAPHRAGMS, BALLOONS, SOCKS, OR UNDERWEAR?NO LATEX ALLERGY : HAVE YOU EVER DEVELOPED ANY TYPE OF REACTION DURING OR AFTER DENTAL APPOINTMENT, VAGINAL/RECTAL EXAMINATION, SURGICAL PROCEDURE, OR ANY OTHER EXPOSURE?NO LATEX RISK : HAVE YOU EVER HAD ANY DIFFICULTY BREATHING OR HIVES AFTER EATING OR HANDLING ANY FRUITS, OR VEGETABLES; SUCH KIWI, BANANAS, STONE FRUITS, OR CHESTNUTSNO LATEX RISK : DO YOU HAVE A PREVIOUS PERSONAL HISTORY OF MORE THAN NINE SURGERIES, SPINA BIFIDA, OR REPEATED CATHERIZATIONS? NO LATEX RISK : ARE YOU FREQUENTLY EXPOSED TO LATEX PRODUCTS IN YOUR OCCUPATION?NO DATE ASKED : 02/02/2020 CAFFEINE CAFFEINE USE?YES HOW OFTEN AND HOW MUCH? 2/DAY ADVANCE DIRECTIVE ADVANCE DIRECTIVE DISCUSSED WITH PATIENT:YES PT HAS HCP- NAKIA FOWLER, ALSO HAS A MOLST ON FILE EPISCOPALIAN EPISCOPALIAN NO SIKHISM BELIEFS THAT WOULD IMPACT HEALTH CARE. MARITAL STATUS: . ALCOHOL SCREENING DID YOU HAVE A DRINK CONTAINING ALCOHOL IN THE PAST YEAR?NO POINTS0 INTERPRETATIONNEGATIVE HOSPITALIZATION/MAJOR DIAGNOSTIC PROCEDURE CHF 09/01/2019 SOB WITH EXERTION 08/28/19 SVT 08/03/19 NON STEMI [facility] 06/2019 SVT 04/2019 SVT 03/2019 COLITIS, HYPOKALEMIA 01/2017 COPD 09/2016 SMALL BOWEL OBSTRUCTION 09/2015 SMALL BOWEL OBSTRUCTION, SOB, COPD 2013 SURGERIES REVIEW OF SYSTEMS REVIEWED BY: PROVIDER: DAVON ALDANA . CONSTITUTIONAL: ANY CHANGE IN YOUR MEDICAL CONDITION? NO . CHILLS NO . FEVER NO . INFECTION: DO YOU HAVE NEW INFECTIONS? NO . DO YOU HAVE HISTORY OF MRSA? NO . MUSCULOSKELETAL: ANY NEW PATTERNS OF PAIN OR NUMBNESS? NOT NEW PATTERNS, HISTORY OF ROTATOR CUFF TEAR, UNABLE TO HAVE SURGERY DUE TO FALLING INJURIES AND SURGERIES . SYTEMIC LUPUS NO . GASTROENTEROLOGY: ANY NEW CHANGE IN BOWEL CONTROL? NO . BARRETTS ESOPHAGUS NO . CIRRHOSIS NO . HEPATITIS NO . LIVER FAILURE NO . ACID REFLUX NO . UNEXPLAINED WEIGHT LOSS NO . GENITOURINARY: ANY NEW CHANGE IN BLADDER CONTROL? NO . IS THERE A CHANCE YOU COULD BE ? NO . HEMATOLOGY/LYMPH: DO YOU TAKE ANY BLOOD THINNERS? (FOR EXAMPLE- COUMADIN, PLAVIX, AGGRENOX, PLATEL, PRADAXA, OR XARELTO) NO . WHEN WAS YOUR LAST DOSE? DATE: TIME: . LOW PLATELET COUNT NO . SICKLE CELL DISEASE NO . VON WILLIEBRANDS NO . FACTOR V LEIDEN NO . THALLASEMIA NO . ANEMIA NO . EASY BRUISING NO . NEUROLOGY: HAVE YOU FALLEN IN THE PAST 12 MONTHS? YES, 5 MONTHS AGO, FELL AND RE-INJURED SHOULDER AND FRACTURED LEFT WRIST, CARED FOR BY [facility] GROUP . ANY NEW EXTREMITY NUMBNESS OR WEAKNESS? NO . HEAD INJURY NO . DEMENTIA NO . CEREBRAL PALSY NO . MULTIPLE SCLEROSIS NO . DIZZINESS NO . HEADACHE NO . STROKES NO . VERTIGO NO . CARDIOLOGY: DO YOU HAVE A PACEMAKER OR DEFIBRILLATOR? NO . ANGINA NO . HEART ATTACK NO . HEART SURGERY NO . CONGESTIVE HEART FAILURE/FLUID OVERLOAD YES, AUG 2019, [facility] ADMISSION FOR CHF, SEEING MD GANDARA . CHEST PAIN NO . HIGH BLOOD PRESSURE NO . IRREGULAR HEART BEAT NO . RESPIRATORY: HAVE YOU BEEN SICK IN THE PAST WEEK? NO . FEVER NO . FLU LIKE SYMPTOMS? NO . CPAP NO . BYPAP NO . ASTHMA NO . EMPHYSEMA NO . CHRONIC LUNG DISEASES NO . SHORTNESS OF BREATH ON EXERTION NO . COUGH NO . SNORING NO . INTEGUMENTARY: DO YOU HAVE ANY RASHES OR OPEN SORES? NO . ALLERGIC/IMMUNO: ARE YOU ALLERGIC TO IV DYE? NO . ANY NEW ALLERGIES? NO . PSYCHIATRIC: DO YOU HAVE THOUGHTS OF HURTING YOURSELF OR SOMEONE ELSE? NO . ARE YOU ABUSED, NEGLECTED, OR IN AN UNSAFE ENVIRONMENT? NO . ENDOCRINOLOGY: ARE YOU DIABETIC? YES, TAKING LEVEMIR . THYROID DISORDER NO . OTHER: DO YOU NEED ANY PRESCRIPTIONS? NO . IF YES, PLEASE LIST: ____ . ANY NEW PROBLEMS WITH YOUR MEDICATIONS? NO . WHEN DID YOU LAST EAT? ____ . WHEN DID YOU LAST DRINK? ____ . WHAT DID YOU LAST DRINK? ____ . NAME OF PERSON DRIVING YOU HOME? ____ . DO YOU HAVE ANY OTHER QUESTIONS OR CONCERNS PT VERY HARD OF HEARING . VITAL SIGNS WT 130 LBS, HT 51 IN, BMI 35.14 INDEX, BP 134/61 MM HG, HR 88 /MIN, RR 18 /MIN, TEMP 96.0 F, OXYGEN SAT % 100%, SAFE IN ENV? (Y/N) Y, NA INITIALS AW 1055, REVIEWED BY: KRYSTYNA. EXAMINATION GENERAL EXAMINATION: GENERAL AWAKE,ALERT ,PLEASANT . PSYCH AFFECT NORMAL . NECK: TRACHEA MIDLINE. NO CERVICAL OR SUPRACLAVICULAR LYMPHADENOPATHY NOTED. LUNGS: LUNG MARTÍNEZ ARE CLEAR TO AUSCULTATION BILATERALLY. GOOD MOVEMENT OF AIR . HEART: S1, S2 IN A REGULAR RATE AND RHYTHM. NO SIGNIFICANT MURMURS, RUBS OR GALLOPS NOTED . MUSCULOSKELETAL:WEAKNESS NOTED OVER RIGHT ARM. TRIGGER POINTS PALPABLE RIGHT SHOULDER, RIGHT TRAPEZIUS AND RIGHT RHOMBOID. PAIN IN THIS AREA IS AGGRAVATED WITH RANGE OF JOINT MOTION OF THE RIGHT ARM.. SKIN: NO RASH OR SKIN LESIONS. ASSESSMENTS MYALGIA, OTHER SITE - M79.18 (PRIMARY) PAIN IN RIGHT SHOULDER - M25.511 OTHER CHRONIC PAIN - G89.29 TREATMENT MYALGIA, OTHER SITE NOTES: TPI RIGHT SHOULDER. OTHERS NOTES: NPC PRE VISIT INFORMATION VERIFIED WITH AND ENTERED FROM REFERRAL. 02/01/2020 1045 TERI. PREVENTIVE MEDICINE PAIN CLINIC TEACHING: THE PATIENT HAS BEEN EDUCATED REGARDING PAIN, THE RISK FOR PAIN, THE IMPORTANCE OF EFFECTIVE PAIN MANAGEMENT, AND THE PAIN ASSESSMENT PROCESS. : DISCUSSED AND REVIEWED WRITTEN AND VERBAL PRE-PROCEDURE INSTRUCTIONS WITH PATIENT AND HCP, PT AND HCP ACKNOWLEDGED UNDERSTANING. DS PROCEDURE CODES FA211 ESTABILISHED PATIENT [facility] CHARGE DISPOSITION & COMMUNICATION FOLLOW UP POST (REASON: TPI RIGHT SHOULDER) ELECTRONICALLY SIGNED BY JOVAN JIMENES ON 02/16/2020 AT 03:30 PM EDT DISCLAIMER : THIS IS A VISIT SUMMARY EXTRACTED FROM THE [employer] CHART. IT IS NOT A COPY OF THE [employer] PROGRESS NOTE. GWEN
== END ==
LOC: M PAIN 10:45
PROVIDERS: ATTEND Nurse Practitioner Family
DX: M79.18 Myalgia, other site (principal); M25.511 Pain in right shoulder; G89.29 Other chronic pain; I11.0 Hypertensive heart disease with heart failure; M75.101 Unspecified rotator cuff tear or rupture of right shoulder, not specified as traumatic; I50.9 Heart failure, unspecified; Z79.82 Long term (current) use of aspirin; Z79.84 Long term (current) use of oral hypoglycemic drugs; Z79.899 Other long term (current) drug therapy; Z88.5 Allergy status to narcotic agent; Z91.81 History of falling; Z87.891 Personal history of nicotine dependence

== ENCOUNTER → 2020-03-04 | Outpatient (CLI) | payer MEDICARE, MEDICAID ==
--- NOTE | 2020-03-07 23:22 | ECWPNPC ---
PATIENT NAME: MARCELINO FOWLER I : 1945 GENDER: FEMALE VISIT DATE: 03/04/2020 DISCHARGE DATE: 03/04/20 1226 VISIT LOCKED DATE TIME: PHYSICIAN: DAVON MA RESOURCE: DAVON MA REASON FOR APPOINTMENT 1. INCREASED PAIN HISTORY OF PRESENT ILLNESS HISTORY OF PRESENT ILLNESS: PATIENT IS AGREEABLE TO TELEPHONE VISIT TODAY. PATIENT IS ASKING FOR PAIN MEDICATION. INITIAL EVALUATION WAS ON 01/31/2020. SHE IS SCHEDULED FOR TRIGGER POINT INJECTIONS, RIGHT UPPER BACK AND SHOULDER NEXT WEEK. STATES THAT SHE CAN'T STAND THE PAIN AND IS COMPLAINING OF LEVEL X OVER [address] CHANG WOULD BE THE PRESCRIBER FOR PAIN MEDICATIONS AT THIS POINT. WE WILL SEND A DRKaterina TO DR. NAGY AND POSSIBLY BE ABLE TO TAKE OVER MEDICINE MANAGEMENT IN THE NEAR FUTURE. I WILL SEE HER FOR POST PROCEDURE FOLLOW-UP AND HOPEFULLY WE HAVE SOMETHING FROM DR. CHANG. PAIN THE PATIENT DESCRIBES THE PAIN... FALL RISK SCREENING: SCREENING :NO FALLS REPORTED IN THE LAST YEAR CURRENT MEDICATIONS TAKING MAGNESIUM 400 MG CAPSULE 1 CAPSULES AT BEDTIME NEEDED ORALLY ONCE A DAY TAKING IRON COMPLEX - CAPSULE DIRECTED ORALLY TAKING ELIQUIS 5 MG TABLET DIRECTED ORALLY TAKING BUSPIRONE HCL 5 MG TABLET 1 TABLET ORALLY BID TAKING METFORMIN HCL 1000 MG TABLET 1 TABLET WITH A MEAL ORALLY BID TAKING IPRATROPIUM-ALBUTEROL 0.5-2.5 (3) MG/3ML SOLUTION 3 ML NEEDED INHALATION EVERY 6 HRS TAKING BREO ELLIPTA 200-25 MCG/INH AEROSOL POWDER BREATH ACTIVATED 1 PUFF INHALATION ONCE A DAY TAKING ALENDRONATE SODIUM 70 MG TABLET 1 CAP ORALLY WEEKLY TAKING VITAMIN D3 HIGH POTENCY 25 MCG (1000 UT) CAPSULE 1 CAPSULE ORALLY ONCE A DAY TAKING ACETAMINOPHEN 500 MG CAPSULE 1-2 TABS ORALLY EVERY 6 HRS NEEDED TAKING AMIODARONE HCL 200 MG TABLET 1 TABLET ORALLY ONCE A DAY TAKING ASPIR-LOW 81 MG TABLET DELAYED RELEASE 1 TABLET ORALLY ONCE A DAY TAKING CALCIUM CARBONATE-VIT D-MIN 600-400 MG-UNIT TABLET 1 TABLET WITH FOOD ORALLY TWICE A DAY TAKING FERROUS SULFATE 325 MG CAPSULE DIRECTED ORALLY TAKING FUROSEMIDE 40 MG TABLET DIRECTED ORALLY DAILY TAKING SALMETEROL XINAFOATE 50 MCG/DOSE AEROSOL POWDER BREATH ACTIVATED 1 PUFF INHALATION TWICE A DAY TAKING CARTIA XT 240 MG CAPSULE EXTENDED RELEASE 24 HOUR 1 CAPSULE ORALLY ONCE A DAY TAKING VITAMIN B-12 500 MCG TABLET 1 TABLET ORALLY ONCE A DAY TAKING ROPINIROLE HCL 1 MG TABLET 1 TABLET 1 TO 3 HOURS BEFORE BEDTIME ORALLY ONCE A DAY TAKING LEVEMIR 100 UNIT/ML SOLUTION DIRECTED SUBCUTANEOUS TAKING HYDROCORTISONE 10 MG TABLET ORALLY TAKE 2 TABS BY MOUTH EVERY MORNING AND TAKE ONE TAB AT BEDTIME TAKING VALIUM 2 MG TABLET 1 TABLET NEEDED ORALLY ONCE A DAY, NOTES: PRIOR TO MRI AND DIRECTED TAKING NORCO 5-325 MG TABLET 1 TABLET NEEDED ORALLY EVERY 6 HRS TAKING CLARITIN 10 MG TABLET 1 TABLET ORALLY ONCE A DAY TAKING VALPROIC ACID 250 MG CAPSULE 1 CAPSULE ORALLY THREE TIMES A DAY TAKING METOPROLOL TARTRATE 25 MG TABLET 1 TABLET WITH FOOD ORALLY TWICE A DAY TAKING CALCIUM CARB-CHOLECALCIFEROL 600-400 MG-UNIT TABLET 1 TABLET WITH A MEAL ORALLY ONCE A DAY TAKING CYANOCOBALAMIN 100 MCG TABLET DIRECTED ORALLY TAKING PANTOPRAZOLE SODIUM 40 MG TABLET DELAYED RELEASE 1 TABLET ORALLY ONCE A DAY TAKING DILT-XR 120 MG CAPSULE EXTENDED RELEASE 24 HOUR 1 CAPSULE ORALLY ONCE A DAY MEDICATION LIST REVIEWED AND RECONCILED WITH THE PATIENT PAST MEDICAL HISTORY CLOSED FRACTURE OF THE METATARSAL BONE ADRENAL CORTICAL HYPOFUNCTION COPD WITH ACUTE EXACERBATIONS CONTUSION OF CHEST CORONARY ARTERIOSCLEROSIS LEUKOCYTOSIS NON-SPECIFIC COLITIS SEIZURE DISORDER SPRAIN OF COSTAL CARTILAGE SHOULDER STRAIN SUPRAVENTRICUALR TACHYCARDIA TABACCO USE ESSENTIAL HYPERTENSION PURE HYPERCHOLESTEROLEMIA ALLERGIES DARVON: ALLERGY SURGICAL HISTORY SPINAL SURGERY BILATERAL CATARACT FAMILY HISTORY FATHER: MOTHER: 1 SON(S) , 2 DAUGHTER(S) . FATHER- HEART DISEASEMOTHER- HEART DISEASE1 SON . SOCIAL HISTORY GENERAL: TOBACCO USE ARE YOU A:FORMER SMOKER VAPORNO E-CIGARETTENO LATEX QUESTIONNAIRE LATEX ALLERGY : HAVE YOU EVER DEVELOPED ANY TYPE OF REACTION AFTER HANDLING LATEX PRODUCTS SUCH RUBBER GLOVES, CONDOMS, DIAPHRAGMS, BALLOONS, SOCKS, OR UNDERWEAR?NO LATEX ALLERGY : HAVE YOU EVER DEVELOPED ANY TYPE OF REACTION DURING OR AFTER DENTAL APPOINTMENT, VAGINAL/RECTAL EXAMINATION, SURGICAL PROCEDURE, OR ANY OTHER EXPOSURE?NO DATE ASKED : 02/02/2020 LATEX RISK : HAVE YOU EVER HAD ANY DIFFICULTY BREATHING OR HIVES AFTER EATING OR HANDLING ANY FRUITS, OR VEGETABLES; SUCH KIWI, BANANAS, STONE FRUITS, OR CHESTNUTSNO LATEX RISK : DO YOU HAVE A PREVIOUS PERSONAL HISTORY OF MORE THAN NINE SURGERIES, SPINA BIFIDA, OR REPEATED CATHERIZATIONS? NO LATEX RISK : ARE YOU FREQUENTLY EXPOSED TO LATEX PRODUCTS IN YOUR OCCUPATION?NO ALCOHOL SCREENING DID YOU HAVE A DRINK CONTAINING ALCOHOL IN THE PAST YEAR?NO POINTS0 INTERPRETATIONNEGATIVE RECREATIONAL DRUG USE DRUG USE?NO PATIENT DENIES ABUSE OR MISSUSED OF ANY MEDICATION DENIES PATIENT DENIES USE OF ANY ILLEGAL SUBSTANCE INCLUDING MARIJUANA OR COCAINE DENIES CAFFEINE CAFFEINE USE?YES HOW OFTEN AND HOW MUCH? 2/DAY TENRIISM TENRIISM NO SCIENTOLOGIST BELIEFS THAT WOULD IMPACT HEALTH CARE. LANGUAGE LANGUAGES SPOKEN:YAKUT LEARNING BARRIERS / SPECIAL NEEDS BARRIERS TO LEARNING?NO HEARING IMPAIRED?YES VISION IMPAIRED?YES COGNITIVELY IMPAIRED?NO :HEARING AIDES :CORRECTIVE LENSES READINESS TO LEARN?YES LEARNING PREFERENCES?NO LEARNING CAPABILITIES PRESENT?YES EMOTIONAL BARRIERS?NO SPECIAL DEVICES?YES :WALKER, WHEELCHAIR REFERRAL COORDINATOR NEEDED?NO DIET: REGULAR. EXERCISE: NO REGULAR EXERCISE. MARITAL STATUS: . OTHERS AT HOME: SPOUSE. NEW PATIENT PAIN DIARY TODAY'S VISIT 03/04/2020 PATIENT DESCRIBES PAIN :ACHING, HAVE IT ALL THE TIME, SHARP, THROBBING, SORE FROM 0-10, WHAT LEVEL IS YOUR PAIN TODAY?10 PRECIPITATING FACTORS MOVEMENT. USE OF ARM ALLEVIATING FACTORS NOTHING IMPACT ON FUNCTION RESTRICTED USE OF ARM NAME OF PERSON DRIVING YOU HOME HCP IS THERE A CHANCE YOU COULD BE ?NO HAVE YOU BEEN SICK IN THE LAST WEEK (COLD, COUGH, FEVER, FLU, ETC)NO DO YOU TAKE ANY BLOOD THINNERS?NO DO YOU HAVE ANY RASHES OR OPEN SORES?NO ANY CHANGE IN BOWEL OR BLADDER CONTROL?NO ARE YOU ALLERGIC TO SHELLFISH OR IV DYE?NO ARE YOU DIABETIC?NO DO YOU HAVE A PACEMAKER OR DEFIBRILLATOR?NO ANY NEW PROBLEMS WITH MEDICINES OR NEW ALLERGIESNO ANY NEW PATTERNS OF PAIN OR NUMBNESS?NO ANY CHANGE IN YOUR MEDICAL CONDITION?NO HAVE YOU FALLEN IN THE LAST 6 MONTHS?NO DO YOU USE ANY TYPE OF TOBACCO (SMOKE, SMOKELESS, CHEW, ETC.)NO ARE YOU ABUSED, NEGLECTED, OR IN AN UNSAFE ENVIRONMENT?NO DO YOU HAVE THOUGHTS OF HURTING YOURSELF OR SOMEONE ELSE?NO DO YOU NEED ANY PRESCRIPTIONS?NO DO YOU HAVE ANY OTHER QUESTIONS OR CONCERNS?NO INTENSITY SCALE REVIEWEDNUMBER PAIN CLINIC PFS, CLERGY, PUBLIC HEALTH REFERRALS PFS REFERRAL NEEDED?NO CLERGY REFERRAL NEEDED?NO PUBLIC HEALTH REFERRAL NEEDED?NO WAS THE PROVIDER NOTIFIED OF ANY PERTINENT INFO?YES HAS THE PATIENT BEEN EDUCATED REGARDING HIS/HER PLAN OF CARE?YES HAS THE PATIENT BEEN EDUCATED REGARDING PAIN, THE RISK FOR PAIN, THE IMPORTANCE OF EFFECTIVE PAIN MANAGEMENT, AND THE PAIN ASSESSMENT PROCESS?YES HOUSING: OWNS HOME. ADVANCE DIRECTIVE ADVANCE DIRECTIVE DISCUSSED WITH PATIENT:YES PT HAS HCP- NAKIA FOWLER, ALSO HAS A MOLST ON FILE HOSPITALIZATION/MAJOR DIAGNOSTIC PROCEDURE CHF 09/01/2019 SOB WITH EXERTION 08/28/19 SVT 08/03/19 NON STEMI PR 06/2019 SVT 04/2019 SVT 03/2019 COLITIS, HYPOKALEMIA 01/2017 COPD 09/2016 SMALL BOWEL OBSTRUCTION 09/2015 SMALL BOWEL OBSTRUCTION, SOB, COPD 2014 SURGERIES REVIEW OF SYSTEMS REVIEWED BY: PROVIDER: DAVON ALDANA . CONSTITUTIONAL: ANY CHANGE IN YOUR MEDICAL CONDITION? NO . CHILLS NO . FEVER NO . INFECTION: DO YOU HAVE NEW INFECTIONS? NO . DO YOU HAVE HISTORY OF MRSA? NO . MUSCULOSKELETAL: ANY NEW PATTERNS OF PAIN OR NUMBNESS? NO . GASTROENTEROLOGY: ANY NEW CHANGE IN BOWEL CONTROL? NO . GENITOURINARY: ANY NEW CHANGE IN BLADDER CONTROL? NO . IS THERE A CHANCE YOU COULD BE ? NO . HEMATOLOGY/LYMPH: DO YOU TAKE ANY BLOOD THINNERS? (FOR EXAMPLE- COUMADIN, PLAVIX, AGGRENOX, PLATEL, PRADAXA, OR XARELTO) ELLIQUIS . WHEN WAS YOUR LAST DOSE? DATE: TIME: . NEUROLOGY: HAVE YOU FALLEN IN THE PAST 12 MONTHS? NO . ANY NEW EXTREMITY NUMBNESS OR WEAKNESS? NO . CARDIOLOGY: DO YOU HAVE A PACEMAKER OR DEFIBRILLATOR? NO . RESPIRATORY: HAVE YOU BEEN SICK IN THE PAST WEEK? NO . FEVER NO . FLU LIKE SYMPTOMS? NO . COUGH NO . INTEGUMENTARY: DO YOU HAVE ANY RASHES OR OPEN SORES? NO . ALLERGIC/IMMUNO: ARE YOU ALLERGIC TO IV DYE? NO . ANY NEW ALLERGIES? NO . PSYCHIATRIC: DO YOU HAVE THOUGHTS OF HURTING YOURSELF OR SOMEONE ELSE? NO . ARE YOU ABUSED, NEGLECTED, OR IN AN UNSAFE ENVIRONMENT? NO . ENDOCRINOLOGY: ARE YOU DIABETIC? YES . OTHER: DO YOU NEED ANY PRESCRIPTIONS? NO . IF YES, PLEASE LIST: ____ . ANY NEW PROBLEMS WITH YOUR MEDICATIONS? NO . WHEN DID YOU LAST EAT? ____ . WHEN DID YOU LAST DRINK? ____ . WHAT DID YOU LAST DRINK? ____ . NAME OF PERSON DRIVING YOU HOME? ____ . DO YOU HAVE ANY OTHER QUESTIONS OR CONCERNS NO . ASSESSMENTS MYALGIA, OTHER SITE - M79.18 (PRIMARY) PAIN IN RIGHT SHOULDER - M25.511 OTHER CHRONIC PAIN - G89.29 TREATMENT MYALGIA, OTHER SITE NOTES: DR. PONCHO LORA PAIN MEDICATION FORM SENT TO DR. CHANG. PATIENT WILL BE SEEN POST PROCEDURE IN THE NEXT 4-6 WEEKS AND MEDICATION MANAGEMENT WILL BE DETERMINED AT THAT POINT. SHE IS ADVISED TO GO TO URGENT CARE OR TO THE EMERGENCY ROOM IF PAIN IS OUT OF CONTROL. TOTAL TIME SPENT DURING TELEPHONE CONSULT WAS APPROXIMATELY 11 MINUTES. DISPOSITION & COMMUNICATION FOLLOW UP 4-6WKS POST PROC (REASON: RIGHT SHOULDER PAIN) ELECTRONICALLY SIGNED BY JOVAN JIMENES ON 03/07/2020 AT 11:40 AM EDT DISCLAIMER : THIS IS A VISIT SUMMARY EXTRACTED FROM THE [employer] CHART. IT IS NOT A COPY OF THE [employer] PROGRESS NOTE. GWEN
== END ==
LOC: M PAIN 11:15
PROVIDERS: ATTEND Nurse Practitioner Family
DX: M79.18 Myalgia, other site (principal); M25.511 Pain in right shoulder; G89.29 Other chronic pain; Z79.82 Long term (current) use of aspirin; Z79.84 Long term (current) use of oral hypoglycemic drugs; Z79.891 Long term (current) use of opiate analgesic; Z79.899 Other long term (current) drug therapy; Z88.5 Allergy status to narcotic agent; Z87.891 Personal history of nicotine dependence

== ENCOUNTER → 2020-03-16 | Outpatient (CLI) | payer MEDICARE, MEDICAID ==
[~2020-03-16] MED LIST changes: +HYDR-4468 PO; -HYDR-4513 PO
== END ==
LOC: M LABSMTC 11:38
PROVIDERS: ATTEND Anesthesiology
DX: Z03.818 Encounter for observation for suspected exposure to other biological agents ruled out (principal); Z11.59 Encounter for screening for other viral diseases

== ENCOUNTER → 2020-03-18 | Outpatient (CLI) | payer MEDICARE, MEDICAID ==
[~2020-03-18] MED LIST changes: +BUPIVACAINE HCL 0.25% 10ML VIAL As Ordered ONE; +BUPIVACAINE HCL 0.25% 30ML VIAL As Ordered ONE; +NORCO, ANEXSIA 5/325MG TABLET (HYDROcodone/ACETAMINOPHEN) As Ordered ONE
--- NOTE | 2020-03-22 02:25 | ECWPNPC ---
PATIENT NAME: MARCELINO FOWLER I : 1945 GENDER: FEMALE VISIT DATE: 03/18/2020 DISCHARGE DATE: 03/18/20 1140 VISIT LOCKED DATE TIME: PHYSICIAN: RAGINI LEDBETTER MD RESOURCE: RAGINI LEDBETTER MD REASON FOR APPOINTMENT 1. TPI RIGHT SHOULDER HISTORY OF PRESENT ILLNESS HISTORY OF PRESENT ILLNESS: PAIN THE PATIENT DESCRIBES THE PAIN... FALL RISK SCREENING: SCREENING :NO FALLS REPORTED IN THE LAST YEAR CURRENT MEDICATIONS TAKING MAGNESIUM 400 MG CAPSULE 1 CAPSULES AT BEDTIME NEEDED ORALLY ONCE A DAY, NOTES: 03/17 TAKING IRON COMPLEX - CAPSULE DIRECTED ORALLY , NOTES: 03/17 TAKING ELIQUIS 5 MG TABLET DIRECTED ORALLY , NOTES: 03/17 TAKING BUSPIRONE HCL 5 MG TABLET 1 TABLET ORALLY BID, NOTES: 03/17 TAKING METFORMIN HCL 1000 MG TABLET 1 TABLET WITH A MEAL ORALLY BID, NOTES: 03/17 TAKING IPRATROPIUM-ALBUTEROL 0.5-2.5 (3) MG/3ML SOLUTION 3 ML NEEDED INHALATION EVERY 6 HRS TAKING BREO ELLIPTA 200-25 MCG/INH AEROSOL POWDER BREATH ACTIVATED 1 PUFF INHALATION ONCE A DAY, NOTES: 03/17 TAKING ALENDRONATE SODIUM 70 MG TABLET 1 CAP ORALLY WEEKLY, NOTES: 03/17 TAKING VITAMIN D3 HIGH POTENCY 25 MCG (1000 UT) CAPSULE 1 CAPSULE ORALLY ONCE A DAY, NOTES: 03/17 TAKING AMIODARONE HCL 200 MG TABLET 1 TABLET ORALLY ONCE A DAY, NOTES: 03/17 TAKING ASPIR-LOW 81 MG TABLET DELAYED RELEASE 1 TABLET ORALLY ONCE A DAY, NOTES: 03/17 TAKING CALCIUM CARBONATE-VIT D-MIN 600-400 MG-UNIT TABLET 1 TABLET WITH FOOD ORALLY TWICE A DAY, NOTES: 03/17 TAKING FERROUS SULFATE 325 MG CAPSULE DIRECTED ORALLY , NOTES: 03/17 TAKING FUROSEMIDE 40 MG TABLET DIRECTED ORALLY DAILY, NOTES: 03/17 TAKING SALMETEROL XINAFOATE 50 MCG/DOSE AEROSOL POWDER BREATH ACTIVATED 1 PUFF INHALATION TWICE A DAY, NOTES: 03/17 TAKING CARTIA XT 240 MG CAPSULE EXTENDED RELEASE 24 HOUR 1 CAPSULE ORALLY ONCE A DAY, NOTES: 03/17 TAKING VITAMIN B-12 500 MCG TABLET 1 TABLET ORALLY ONCE A DAY, NOTES: 03/17 TAKING ROPINIROLE HCL 1 MG TABLET 1 TABLET 1 TO 3 HOURS BEFORE BEDTIME ORALLY ONCE A DAY, NOTES: 03/17 TAKING LEVEMIR 100 UNIT/ML SOLUTION DIRECTED SUBCUTANEOUS , NOTES: 03/17 9AM TAKING HYDROCORTISONE 10 MG TABLET ORALLY TAKE 2 TABS BY MOUTH EVERY MORNING AND TAKE ONE TAB AT BEDTIME, NOTES: 03/17 10P TAKING VALIUM 2 MG TABLET 1 TABLET NEEDED ORALLY ONCE A DAY, NOTES: PRIOR TO MRI AND DIRECTED TAKING NORCO 5-325 MG TABLET 1 TABLET NEEDED ORALLY EVERY 6 HRS, NOTES: 03/17 2P TAKING CLARITIN 10 MG TABLET 1 TABLET ORALLY ONCE A DAY, NOTES: 03/17 10P TAKING VALPROIC ACID 250 MG CAPSULE 1 CAPSULE ORALLY THREE TIMES A DAY, NOTES: 03/17 TAKING METOPROLOL TARTRATE 25 MG TABLET 1 TABLET WITH FOOD ORALLY TWICE A DAY, NOTES: 03/17 TAKING CALCIUM CARB-CHOLECALCIFEROL 600-400 MG-UNIT TABLET 1 TABLET WITH A MEAL ORALLY ONCE A DAY, NOTES: 03/17 TAKING CYANOCOBALAMIN 100 MCG TABLET DIRECTED ORALLY , NOTES: 03/17 TAKING DILT-XR 120 MG CAPSULE EXTENDED RELEASE 24 HOUR 1 CAPSULE ORALLY ONCE A DAY, NOTES: 03/17 TAKING FLUTICASONE PROPIONATE 50 MCG/DOSE SUSPENSION 1 SPRAY IN EACH NOSTRIL NASALLY ONCE A DAY, NOTES: 03/17 NOT-TAKING ACETAMINOPHEN 500 MG CAPSULE 1-2 TABS ORALLY EVERY 6 HRS NEEDED NOT-TAKING PANTOPRAZOLE SODIUM 40 MG TABLET DELAYED RELEASE 1 TABLET ORALLY ONCE A DAY MEDICATION LIST REVIEWED AND RECONCILED WITH THE PATIENT PAST MEDICAL HISTORY CLOSED FRACTURE OF THE METATARSAL BONE ADRENAL CORTICAL HYPOFUNCTION COPD WITH ACUTE EXACERBATIONS CONTUSION OF CHEST CORONARY ARTERIOSCLEROSIS LEUKOCYTOSIS NON-SPECIFIC COLITIS SEIZURE DISORDER SPRAIN OF COSTAL CARTILAGE SHOULDER STRAIN SUPRAVENTRICUALR TACHYCARDIA TABACCO USE ESSENTIAL HYPERTENSION PURE HYPERCHOLESTEROLEMIA ALLERGIES DARVON: ALLERGY SURGICAL HISTORY SPINAL SURGERY BILATERAL CATARACT FAMILY HISTORY FATHER: MOTHER: 1 SON(S) , 2 DAUGHTER(S) . FATHER- HEART DISEASEMOTHER- HEART DISEASE1 SON . SOCIAL HISTORY GENERAL: TOBACCO USE ARE YOU A:FORMER SMOKER VAPORNO E-CIGARETTENO LATEX QUESTIONNAIRE LATEX ALLERGY : HAVE YOU EVER DEVELOPED ANY TYPE OF REACTION AFTER HANDLING LATEX PRODUCTS SUCH RUBBER GLOVES, CONDOMS, DIAPHRAGMS, BALLOONS, SOCKS, OR UNDERWEAR?NO LATEX ALLERGY : HAVE YOU EVER DEVELOPED ANY TYPE OF REACTION DURING OR AFTER DENTAL APPOINTMENT, VAGINAL/RECTAL EXAMINATION, SURGICAL PROCEDURE, OR ANY OTHER EXPOSURE?NO LATEX RISK : HAVE YOU EVER HAD ANY DIFFICULTY BREATHING OR HIVES AFTER EATING OR HANDLING ANY FRUITS, OR VEGETABLES; SUCH KIWI, BANANAS, STONE FRUITS, OR CHESTNUTSNO LATEX RISK : DO YOU HAVE A PREVIOUS PERSONAL HISTORY OF MORE THAN NINE SURGERIES, SPINA BIFIDA, OR REPEATED CATHERIZATIONS? NO LATEX RISK : ARE YOU FREQUENTLY EXPOSED TO LATEX PRODUCTS IN YOUR OCCUPATION?NO DATE ASKED : 03/18/2020 ALCOHOL SCREENING DID YOU HAVE A DRINK CONTAINING ALCOHOL IN THE PAST YEAR?NO POINTS0 INTERPRETATIONNEGATIVE RECREATIONAL DRUG USE DRUG USE?NO PATIENT DENIES ABUSE OR MISSUSED OF ANY MEDICATION DENIES PATIENT DENIES USE OF ANY ILLEGAL SUBSTANCE INCLUDING MARIJUANA OR COCAINE DENIES CAFFEINE CAFFEINE USE?YES HOW OFTEN AND HOW MUCH? 2/DAY EVANGELICAL EVANGELICAL NO BAHAI BELIEFS THAT WOULD IMPACT HEALTH CARE. LANGUAGE LANGUAGES SPOKEN:ARMENIAN LEARNING BARRIERS / SPECIAL NEEDS BARRIERS TO LEARNING?NO HEARING IMPAIRED?YES VISION IMPAIRED?YES COGNITIVELY IMPAIRED?NO :HEARING AIDES :CORRECTIVE LENSES READINESS TO LEARN?YES LEARNING PREFERENCES?NO LEARNING CAPABILITIES PRESENT?YES EMOTIONAL BARRIERS?NO SPECIAL DEVICES?YES :WALKER, WHEELCHAIR ENGINE CLEANER NEEDED?NO DIET: REGULAR. EXERCISE: NO REGULAR EXERCISE. MARITAL STATUS: . OTHERS AT HOME: SPOUSE. NEW PATIENT PAIN DIARY TODAY'S VISIT 03/18/20 PATIENT DESCRIBES PAIN :ACHING, HAVE IT ALL THE TIME, SHARP, THROBBING, SORE FROM 0-10, WHAT LEVEL IS YOUR PAIN TODAY?10 PRECIPITATING FACTORS MOVEMENT. USE OF ARM ALLEVIATING FACTORS NOTHING IMPACT ON FUNCTION RESTRICTED USE OF ARM NAME OF PERSON DRIVING YOU HOME HCP IS THERE A CHANCE YOU COULD BE ?NO HAVE YOU BEEN SICK IN THE LAST WEEK (COLD, COUGH, FEVER, FLU, ETC)NO DO YOU TAKE ANY BLOOD THINNERS?YES LAST DOSE 5/6 DO YOU HAVE ANY RASHES OR OPEN SORES?NO ANY CHANGE IN BOWEL OR BLADDER CONTROL?NO ARE YOU ALLERGIC TO SHELLFISH OR IV DYE?NO ARE YOU DIABETIC?YES DO YOU HAVE A PACEMAKER OR DEFIBRILLATOR?NO ANY NEW PROBLEMS WITH MEDICINES OR NEW ALLERGIESNO ANY NEW PATTERNS OF PAIN OR NUMBNESS?NO ANY CHANGE IN YOUR MEDICAL CONDITION?NO HAVE YOU FALLEN IN THE LAST 6 MONTHS?NO DO YOU USE ANY TYPE OF TOBACCO (SMOKE, SMOKELESS, CHEW, ETC.)NO ARE YOU ABUSED, NEGLECTED, OR IN AN UNSAFE ENVIRONMENT?NO DO YOU HAVE THOUGHTS OF HURTING YOURSELF OR SOMEONE ELSE?NO DO YOU NEED ANY PRESCRIPTIONS?NO DO YOU HAVE ANY OTHER QUESTIONS OR CONCERNS?NO INTENSITY SCALE REVIEWEDNUMBER PAIN CLINIC PFS, CLERGY, PUBLIC HEALTH REFERRALS PFS REFERRAL NEEDED?NO CLERGY REFERRAL NEEDED?NO PUBLIC HEALTH REFERRAL NEEDED?NO WAS THE PROVIDER NOTIFIED OF ANY PERTINENT INFO?YES HAS THE PATIENT BEEN EDUCATED REGARDING HIS/HER PLAN OF CARE?YES HAS THE PATIENT BEEN EDUCATED REGARDING PAIN, THE RISK FOR PAIN, THE IMPORTANCE OF EFFECTIVE PAIN MANAGEMENT, AND THE PAIN ASSESSMENT PROCESS?YES HOUSING: OWNS HOME. ADVANCE DIRECTIVE ADVANCE DIRECTIVE DISCUSSED WITH PATIENT:YES PT HAS HCP- NAKIA FOWLER, ALSO HAS A [facility] ON FILE HOSPITALIZATION/MAJOR DIAGNOSTIC PROCEDURE CHF 09/01/2019 SOB WITH EXERTION 08/28/19 SVT 08/03/19 NON STEMI ME 06/2019 SVT 04/2019 SVT 03/2019 COLITIS, HYPOKALEMIA 01/2017 COPD 09/2016 SMALL BOWEL OBSTRUCTION 09/2015 SMALL BOWEL OBSTRUCTION, SOB, COPD 2014 SURGERIES REVIEW OF SYSTEMS REVIEWED BY: PROVIDER: RAGINI LEDBETTER MD . CONSTITUTIONAL: ANY CHANGE IN YOUR MEDICAL CONDITION? NO . CHILLS NO . FEVER NO . INFECTION: DO YOU HAVE NEW INFECTIONS? NO . DO YOU HAVE HISTORY OF MRSA? NO . MUSCULOSKELETAL: ANY NEW PATTERNS OF PAIN OR NUMBNESS? NO . GASTROENTEROLOGY: ANY NEW CHANGE IN BOWEL CONTROL? NO . GENITOURINARY: ANY NEW CHANGE IN BLADDER CONTROL? NO . IS THERE A CHANCE YOU COULD BE ? NO . HEMATOLOGY/LYMPH: DO YOU TAKE ANY BLOOD THINNERS? (FOR EXAMPLE- COUMADIN, PLAVIX, AGGRENOX, PLATEL, PRADAXA, OR XARELTO) YES ELIQUIS . WHEN WAS YOUR LAST DOSE? DATE:IME: . NEUROLOGY: HAVE YOU FALLEN IN THE PAST 12 MONTHS? NO . ANY NEW EXTREMITY NUMBNESS OR WEAKNESS? NO . CARDIOLOGY: DO YOU HAVE A PACEMAKER OR DEFIBRILLATOR? NO . RESPIRATORY: HAVE YOU BEEN SICK IN THE PAST WEEK? NO . FEVER NO . FLU LIKE SYMPTOMS? NO . COUGH NO . INTEGUMENTARY: DO YOU HAVE ANY RASHES OR OPEN SORES? NO . ALLERGIC/IMMUNO: ARE YOU ALLERGIC TO IV DYE? NO . ANY NEW ALLERGIES? NO . PSYCHIATRIC: DO YOU HAVE THOUGHTS OF HURTING YOURSELF OR SOMEONE ELSE? NO . ARE YOU ABUSED, NEGLECTED, OR IN AN UNSAFE ENVIRONMENT? NO . ENDOCRINOLOGY: ARE YOU DIABETIC? YES, FSBS 156 03/18 9AM . OTHER: DO YOU NEED ANY PRESCRIPTIONS? NO . IF YES, PLEASE LIST: ____ . ANY NEW PROBLEMS WITH YOUR MEDICATIONS? NO . WHEN DID YOU LAST EAT? 03/17 6PM . WHEN DID YOU LAST DRINK? 03/18 9AM . WHAT DID YOU LAST DRINK? TEA . NAME OF PERSON DRIVING YOU HOME? SPOUSE - NAKIA . DO YOU HAVE ANY OTHER QUESTIONS OR CONCERNS NO . VITAL SIGNS WT 130 LBS, HT 51 IN, BMI 35.14 INDEX, BP 138/65 MM HG, HR 90 /MIN, RR 18 /MIN, TEMP 98.0 F, OXYGEN SAT % 97%, SAFE IN ENV? (Y/N) Y, NA INITIALS AW 0959, REVIEWED BY: DS. ASSESSMENTS MYALGIA, OTHER SITE - M79.18 (PRIMARY) PROCEDURES PN TRIGGER POINT INJECTION NO STEROIDS DATE OF PROCEDURE : PRE PROCEDURE DIAGNOSIS 1. MYALGIA 2. PAIN AT RIGHT SHOULDER AREA POST PROCEDURE DIAGNOSIS 1. MYALGIA 2. PAIN AT RIGHT SHOULDER AREA PROCEDURE TRIGGER POINT INJECTION AT RIGHT SHOULDER AREA SURGEON DR. RAGINI LEDBETTER TERMITE CONTROL REPRESENTATIVE NONE ANESTHESIA LOCAL PRE PROCEDURE NOTE 75-YEAR-OLD PATIENT WITH HISTORY OF CHRONIC PAIN AT RIGHT SHOULDER AREA. I EVALUATED THE PATIENT AND REVIEWED THE CHART. THERE IS EVIDENCE OF BANDS OF TISSUE WITH RESTRICTION OF MOVEMENT AND PRESENCE OF TRIGGER POINT AT THE RIGHT SHOULDER AREA. I WENT OVER THE RISKS, ALTERNATIVES, AND BENEFITS ASSOCIATED WITH THIS PROCEDURE. THE PATIENT WOULD LIKE TO PROCEED AND GAVE CONSENT TO PERFORM THE PROCEDURE. THE PATIENT DENIES UNEXPLAINABLE WEIGHT LOSS, FEVER, CHILLS, OR NEW CHANGES IN URINARY OR BOWEL CONTROL. THE PATIENT IS COVID-19 NEGATIVE DESCRIPTION OF PROCEDURE THE PATIENT WAS BROUGHT TO THE PROCEDURE ROOM AND PLACED IN THE SITTING POSITION. THE AREA WAS CLEANED WITH ALCOHOL. THE PROCEDURE WAS DONE USING ASEPTIC STERILE TECHNIQUES. I CHECKED LATERALITY AND THE LEVEL WHERE THE PROCEDURE WAS GOING TO BE PERFORMED WITH THE PATIENT AND THE SUPPORTING STAFF AT THE MOMENT OF THE TIME OUT IN THE PROCEDURE ROOM. USING A 25-GAUGE NEEDLE, TRIGGER POINTS WERE INJECTED INTO THE RIGHT SHOULDER AREA WITH A TOTAL OF 40 ML OF BUPIVACAINE 0.25%. AGREED WITH THE PATIENT THE PROCEDURE WAS DONE WITHOUT STEROIDS. THERE WAS NO EVIDENCE OF BLOOD, PARESTHESIA OR CEREBROSPINAL FLUID DURING THE PROCEDURE. THE PATIENT WAS SENT TO THE RECOVERY ROOM. THE PATIENT WAS MOVING THE EXTREMITIES AND DOING WELL. THERE WAS NO COMPLICATION DURING THE PROCEDURE POST PROCEDURE NOTE CONSIDER PENNSAID FOAM FOR THE PATIENT. I WOULD NOT ADVISE DOING ANOTHER TRIGGER POINT FOR THIS PATIENT UNLESS SHE RECEIVES LONG-TERM RELIEF FROM THIS INJECTION. IF SHE DOES NOT GET LONG-TERM RELIEF, WE COULD CONSIDER DOING A COOL RF; HOWEVER, SHE IS NOT READY FOR THIS AT THE MOMENT. THE PATIENT WILL BE SEEN IN A FOLLOW UP IN THE NEXT FEW WEEKS. INSTRUCTIONS WERE GIVEN, QUESTIONS WERE ANSWERED, AND THE PATIENT EXPRESSED UNDERSTANDING AND AGREED WITH THE PLAN. I, JMAES AUGUSTE, DOCUMENTED THE ABOVE INFORMATION ACTING A SCRIBE FOR DR. LEDBETTER. I HAVE REVIEWED THE ABOVE DOCUMENT, WRITTEN BY JAMES AUGUSTE, PASTE MIXER LIQUID, AND I VERIFY THAT IT IS ACCURATE PROCEDURE CODES 40584 INJ TRIGGER POINT /2 MUSCL DISPOSITION & COMMUNICATION FOLLOW UP F/UP WITH REHANGER (REASON: POST-PROCEDURE F/UP-SHOULDER PAIN) ELECTRONICALLY SIGNED BY RAGINI LEDBETTER MD, MD ON 03/21/2020 AT 11:26 AM EDT DISCLAIMER : THIS IS A VISIT SUMMARY EXTRACTED FROM THE [employer] CHART. IT IS NOT A COPY OF THE [employer] PROGRESS NOTE. GWEN
== END ==
LOC: M PAIN 10:00
PROVIDERS: ATTEND Anesthesiology
DX: M79.18 Myalgia, other site (principal); Z79.82 Long term (current) use of aspirin; Z79.891 Long term (current) use of opiate analgesic; Z79.899 Other long term (current) drug therapy; Z88.5 Allergy status to narcotic agent; Z87.891 Personal history of nicotine dependence

== ENCOUNTER → 2020-03-28 | Outpatient (CLI) | payer MEDICARE, MEDICAID ==
[~2020-03-28] MED LIST changes: -BUPIVACAINE HCL 0.25% 10ML VIAL As Ordered ONE; -BUPIVACAINE HCL 0.25% 30ML VIAL As Ordered ONE; -NORCO, ANEXSIA 5/325MG TABLET (HYDROcodone/ACETAMINOPHEN) As Ordered ONE
--- NOTE | 2020-03-30 23:24 | ECWPNPC ---
PATIENT NAME: MARCELINO FOWLER I : 1945 GENDER: FEMALE VISIT DATE: 03/28/2020 DISCHARGE DATE: 03/28/20 1201 VISIT LOCKED DATE TIME: PHYSICIAN: DAVON MA RESOURCE: DAVON MA REASON FOR APPOINTMENT 1. INCREASED PAIN -IN OFFICE PAT DONE HISTORY OF PRESENT ILLNESS HISTORY OF PRESENT ILLNESS: BEING SEEN ON AN URGENT BASIS FOR UNCONTROLLED RIGHT SHOULDER PAIN. MRI OF RIGHT SHOULDER REGION SHOWING SIGNIFICANT TEAR. SHE HAS NOT HAD THIS EVALUATED AT THE [facility] SINCE HAVING MRI. RATING PAIN LEVEL A 10 OVER 10 VAS. DESCRIBES PAIN CONSTANT AND THROBBING. PAIN IS AGGRAVATED BY TRYING TO USE RIGHT ARM. HAD TRIGGER POINT INJECTIONS TO RIGHT SHOULDER ON 03/18/2020. REPORTS NO IMPROVEMENT POST PROCEDURE, EVEN FOR A SHORT TIME. PAIN THE PATIENT DESCRIBES THE PAINAFTER THE PROCEDURE PROCEDURE DID NOT HELP AT ALL SEVERITY - PAIN SCORE OF10/10 LOCATIONSRIGHT SHOULDER QUALITYSTABBING, TENDER, THROBBING, SORE DURATIONCONTINUOUS, CONSTANT, ALL DAY PAIN IS INCREASED BY:ACTIVITIES FALL RISK SCREENING: SCREENING :NO FALLS REPORTED IN THE LAST YEAR CURRENT MEDICATIONS TAKING MAGNESIUM 400 MG CAPSULE 1 CAPSULES AT BEDTIME NEEDED ORALLY ONCE A DAY TAKING IRON COMPLEX - CAPSULE DIRECTED ORALLY TAKING ELIQUIS 5 MG TABLET DIRECTED ORALLY TAKING BUSPIRONE HCL 5 MG TABLET 1 TABLET ORALLY BID TAKING METFORMIN HCL 1000 MG TABLET 1 TABLET WITH A MEAL ORALLY BID TAKING IPRATROPIUM-ALBUTEROL 0.5-2.5 (3) MG/3ML SOLUTION 3 ML NEEDED INHALATION EVERY 6 HRS TAKING BREO ELLIPTA 200-25 MCG/INH AEROSOL POWDER BREATH ACTIVATED 1 PUFF INHALATION ONCE A DAY TAKING ALENDRONATE SODIUM 70 MG TABLET 1 CAP ORALLY WEEKLY TAKING VITAMIN D3 HIGH POTENCY 25 MCG (1000 UT) CAPSULE 1 CAPSULE ORALLY ONCE A DAY TAKING AMIODARONE HCL 200 MG TABLET 1 TABLET ORALLY ONCE A DAY TAKING ASPIR-LOW 81 MG TABLET DELAYED RELEASE 1 TABLET ORALLY ONCE A DAY TAKING CALCIUM CARBONATE-VIT D-MIN 600-400 MG-UNIT TABLET 1 TABLET WITH FOOD ORALLY TWICE A DAY TAKING FERROUS SULFATE 325 MG CAPSULE DIRECTED ORALLY TAKING FUROSEMIDE 40 MG TABLET DIRECTED ORALLY DAILY TAKING SALMETEROL XINAFOATE 50 MCG/DOSE AEROSOL POWDER BREATH ACTIVATED 1 PUFF INHALATION TWICE A DAY TAKING CARTIA XT 240 MG CAPSULE EXTENDED RELEASE 24 HOUR 1 CAPSULE ORALLY ONCE A DAY TAKING VITAMIN B-12 500 MCG TABLET 1 TABLET ORALLY ONCE A DAY TAKING ROPINIROLE HCL 1 MG TABLET 1 TABLET 1 TO 3 HOURS BEFORE BEDTIME ORALLY ONCE A DAY TAKING LEVEMIR 100 UNIT/ML SOLUTION DIRECTED SUBCUTANEOUS TAKING HYDROCORTISONE 10 MG TABLET ORALLY TAKE 2 TABS BY MOUTH EVERY MORNING AND TAKE ONE TAB AT BEDTIME TAKING CLARITIN 10 MG TABLET 1 TABLET ORALLY ONCE A DAY TAKING VALPROIC ACID 250 MG CAPSULE 1 CAPSULE ORALLY THREE TIMES A DAY TAKING METOPROLOL TARTRATE 25 MG TABLET 1 TABLET WITH FOOD ORALLY TWICE A DAY TAKING CALCIUM CARB-CHOLECALCIFEROL 600-400 MG-UNIT TABLET 1 TABLET WITH A MEAL ORALLY ONCE A DAY TAKING CYANOCOBALAMIN 100 MCG TABLET DIRECTED ORALLY TAKING DILT-XR 120 MG CAPSULE EXTENDED RELEASE 24 HOUR 1 CAPSULE ORALLY ONCE A DAY TAKING FLUTICASONE PROPIONATE 50 MCG/DOSE SUSPENSION 1 SPRAY IN EACH NOSTRIL NASALLY ONCE A DAY TAKING ACETAMINOPHEN 500 MG CAPSULE 1-2 TABS ORALLY EVERY 6 HRS NEEDED TAKING PERCOCET 5-325 MG TABLET 1 TABLET NEEDED ORALLY EVERY 6 HRS NOT-TAKING NORCO 5-325 MG TABLET 1 TABLET NEEDED ORALLY EVERY 6 HRS NOT-TAKING VALIUM 2 MG TABLET 1 TABLET NEEDED ORALLY ONCE A DAY, NOTES: PRIOR TO MRI AND DIRECTED NOT-TAKING PANTOPRAZOLE SODIUM 40 MG TABLET DELAYED RELEASE 1 TABLET ORALLY ONCE A DAY MEDICATION LIST REVIEWED AND RECONCILED WITH THE PATIENT PAST MEDICAL HISTORY CLOSED FRACTURE OF THE METATARSAL BONE ADRENAL CORTICAL HYPOFUNCTION COPD WITH ACUTE EXACERBATIONS CONTUSION OF CHEST CORONARY ARTERIOSCLEROSIS LEUKOCYTOSIS NON-SPECIFIC COLITIS SEIZURE DISORDER SPRAIN OF COSTAL CARTILAGE SHOULDER STRAIN SUPRAVENTRICUALR TACHYCARDIA TABACCO USE ESSENTIAL HYPERTENSION PURE HYPERCHOLESTEROLEMIA ALLERGIES DARVON: ALLERGY SURGICAL HISTORY SPINAL SURGERY BILATERAL CATARACT FAMILY HISTORY FATHER: MOTHER: 1 SON(S) , 2 DAUGHTER(S) . FATHER- HEART DISEASEMOTHER- HEART DISEASE1 SON . SOCIAL HISTORY GENERAL: TOBACCO USE ARE YOU A:FORMER SMOKER VAPORNO E-CIGARETTENO LATEX QUESTIONNAIRE LATEX ALLERGY : HAVE YOU EVER DEVELOPED ANY TYPE OF REACTION AFTER HANDLING LATEX PRODUCTS SUCH RUBBER GLOVES, CONDOMS, DIAPHRAGMS, BALLOONS, SOCKS, OR UNDERWEAR?NO LATEX ALLERGY : HAVE YOU EVER DEVELOPED ANY TYPE OF REACTION DURING OR AFTER DENTAL APPOINTMENT, VAGINAL/RECTAL EXAMINATION, SURGICAL PROCEDURE, OR ANY OTHER EXPOSURE?NO DATE ASKED : 03/18/2020 LATEX RISK : HAVE YOU EVER HAD ANY DIFFICULTY BREATHING OR HIVES AFTER EATING OR HANDLING ANY FRUITS, OR VEGETABLES; SUCH KIWI, BANANAS, STONE FRUITS, OR CHESTNUTSNO LATEX RISK : DO YOU HAVE A PREVIOUS PERSONAL HISTORY OF MORE THAN NINE SURGERIES, SPINA BIFIDA, OR REPEATED CATHERIZATIONS? NO LATEX RISK : ARE YOU FREQUENTLY EXPOSED TO LATEX PRODUCTS IN YOUR OCCUPATION?NO ALCOHOL SCREENING DID YOU HAVE A DRINK CONTAINING ALCOHOL IN THE PAST YEAR?NO POINTS0 INTERPRETATIONNEGATIVE RECREATIONAL DRUG USE DRUG USE?NO PATIENT DENIES ABUSE OR MISSUSED OF ANY MEDICATION DENIES PATIENT DENIES USE OF ANY ILLEGAL SUBSTANCE INCLUDING MARIJUANA OR COCAINE DENIES CAFFEINE CAFFEINE USE?YES HOW OFTEN AND HOW MUCH? 2/DAY SABIANIST SABIANIST NO ZOROASTRIAN BELIEFS THAT WOULD IMPACT HEALTH CARE. 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 EXERCISE: NO REGULAR EXERCISE. MARITAL STATUS: . OTHERS AT HOME: SPOUSE. NEW PATIENT PAIN DIARY TODAY'S VISIT 03/25/20 PATIENT DESCRIBES PAIN :ACHING, HAVE IT ALL THE TIME, SHARP, THROBBING, SORE FROM 0-10, WHAT LEVEL IS YOUR PAIN TODAY?10 PRECIPITATING FACTORS MOVEMENT. USE OF ARM ALLEVIATING FACTORS NOTHING IMPACT ON FUNCTION RESTRICTED USE OF ARM NAME OF PERSON DRIVING YOU HOME HCP IS THERE A CHANCE YOU COULD BE ?NO HAVE YOU BEEN SICK IN THE LAST WEEK (COLD, COUGH, FEVER, FLU, ETC)NO DO YOU TAKE ANY BLOOD THINNERS?YES LAST DOSE 03/16 DO YOU HAVE ANY RASHES OR OPEN SORES?NO ANY CHANGE IN BOWEL OR BLADDER CONTROL?NO ARE YOU ALLERGIC TO SHELLFISH OR IV DYE?NO ARE YOU DIABETIC?YES DO YOU HAVE A PACEMAKER OR DEFIBRILLATOR?NO ANY NEW PROBLEMS WITH MEDICINES OR NEW ALLERGIESNO ANY NEW PATTERNS OF PAIN OR NUMBNESS?NO ANY CHANGE IN YOUR MEDICAL CONDITION?NO HAVE YOU FALLEN IN THE LAST 6 MONTHS?NO DO YOU USE ANY TYPE OF TOBACCO (SMOKE, SMOKELESS, CHEW, ETC.)NO ARE YOU ABUSED, NEGLECTED, OR IN AN UNSAFE ENVIRONMENT?NO DO YOU HAVE THOUGHTS OF HURTING YOURSELF OR SOMEONE ELSE?NO DO YOU NEED ANY PRESCRIPTIONS?NO DO YOU HAVE ANY OTHER QUESTIONS OR CONCERNS?NO INTENSITY SCALE REVIEWEDNUMBER PAIN CLINIC PFS, CLERGY, PUBLIC HEALTH REFERRALS PFS REFERRAL NEEDED?NO CLERGY REFERRAL NEEDED?NO PUBLIC HEALTH REFERRAL NEEDED?NO WAS THE PROVIDER NOTIFIED OF ANY PERTINENT INFO?YES HAS THE PATIENT BEEN EDUCATED REGARDING HIS/HER PLAN OF CARE?YES HAS THE PATIENT BEEN EDUCATED REGARDING PAIN, THE RISK FOR PAIN, THE IMPORTANCE OF EFFECTIVE PAIN MANAGEMENT, AND THE PAIN ASSESSMENT PROCESS?YES HOUSING: OWNS HOME. ADVANCE DIRECTIVE ADVANCE DIRECTIVE DISCUSSED WITH PATIENT:YES PT HAS HCP- NAKIA FOWLER, ALSO HAS A [facility] ON FILE HOSPITALIZATION/MAJOR DIAGNOSTIC PROCEDURE CHF 09/01/2019 SOB WITH EXERTION 08/28/19 SVT 08/03/[address] 06/2019 SVT 04/2019 SVT 03/2019 COLITIS, HYPOKALEMIA 01/2017 COPD 09/2016 SMALL BOWEL OBSTRUCTION 09/2015 SMALL BOWEL OBSTRUCTION, SOB, COPD 2014 SURGERIES REVIEW OF SYSTEMS REVIEWED BY: PROVIDER: DAVON ALDANA . CONSTITUTIONAL: ANY CHANGE IN YOUR MEDICAL CONDITION? NO . CHILLS NO . FEVER NO . INFECTION: DO YOU HAVE NEW INFECTIONS? NO . DO YOU HAVE HISTORY OF MRSA? NO . MUSCULOSKELETAL: ANY NEW PATTERNS OF PAIN OR NUMBNESS? NO . GASTROENTEROLOGY: ANY NEW CHANGE IN BOWEL CONTROL? NO . GENITOURINARY: ANY NEW CHANGE IN BLADDER CONTROL? NO . IS THERE A CHANCE YOU COULD BE ? NO . HEMATOLOGY/LYMPH: DO YOU TAKE ANY BLOOD THINNERS? (FOR EXAMPLE- COUMADIN, PLAVIX, AGGRENOX, PLATEL, PRADAXA, OR XARELTO) YES, ELLIQUIS . WHEN WAS YOUR LAST DOSE? DATE: TIME: . NEUROLOGY: HAVE YOU FALLEN IN THE PAST 12 MONTHS? NO . ANY NEW EXTREMITY NUMBNESS OR WEAKNESS? NO . CARDIOLOGY: DO YOU HAVE A PACEMAKER OR DEFIBRILLATOR? NO . RESPIRATORY: HAVE YOU BEEN SICK IN THE PAST WEEK? NO . FEVER NO . FLU LIKE SYMPTOMS? NO . COUGH NO . INTEGUMENTARY: DO YOU HAVE ANY RASHES OR OPEN SORES? NO . ALLERGIC/IMMUNO: ARE YOU ALLERGIC TO IV DYE? NO . ANY NEW ALLERGIES? NO . PSYCHIATRIC: DO YOU HAVE THOUGHTS OF HURTING YOURSELF OR SOMEONE ELSE? NO . ARE YOU ABUSED, NEGLECTED, OR IN AN UNSAFE ENVIRONMENT? NO . ENDOCRINOLOGY: ARE YOU DIABETIC? YES . OTHER: DO YOU NEED ANY PRESCRIPTIONS? NO . IF YES, PLEASE LIST: ____ . ANY NEW PROBLEMS WITH YOUR MEDICATIONS? NO . WHEN DID YOU LAST EAT? ____ . WHEN DID YOU LAST DRINK? ____ . WHAT DID YOU LAST DRINK? ____ . NAME OF PERSON DRIVING YOU HOME? ____ . DO YOU HAVE ANY OTHER QUESTIONS OR CONCERNS NO . VITAL SIGNS WT 129.0 LBS, HT 51 IN, BMI 34.87 INDEX, BP 143/64 MM HG, HR 102 /MIN, RR 18 /MIN, TEMP 97.6 F, OXYGEN SAT % 96%, SAFE IN ENV? 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 EXAMINATION GENERAL EXAMINATION: GENERAL AWAKE,ALERT ,PLEASANT . PSYCH AFFECT NORMAL . NECK: TRACHEA MIDLINE. NO CERVICAL OR SUPRACLAVICULAR LYMPHADENOPATHY NOTED. LUNGS: LUNG MARTÍNEZ ARE CLEAR TO AUSCULTATION BILATERALLY. GOOD MOVEMENT OF AIR . HEART: S1, S2 IN A REGULAR RATE AND RHYTHM. NO SIGNIFICANT MURMURS, RUBS OR GALLOPS NOTED . MUSCULOSKELETAL:WEAKNESS NOTED OVER RIGHT ARM. TRIGGER POINTS PALPABLE RIGHT SHOULDER, RIGHT TRAPEZIUS AND RIGHT RHOMBOID. PAIN IN THIS AREA IS AGGRAVATED WITH RANGE OF JOINT MOTION OF THE RIGHT ARM.. SKIN: NO RASH OR SKIN LESIONS. ASSESSMENTS MYALGIA, OTHER SITE - M79.18 (PRIMARY) PAIN IN RIGHT SHOULDER - M25.511 OTHER CHRONIC PAIN - G89.29 TREATMENT OTHERS START PERCOCET TABLET, 5-325 MG, 1 TABLET NEEDED, ORALLY, EVERY 6 HRS PRN SEVERE PAIN MDD4 #45 TAB SHOULD LAST 30 DAYS, 30 DAYS, 45, REFILLS 0 NOTES: [facility] NARCOTIC AGREEMENT WAS REVIEWED AND SIGNED TODAY BY THE PATIENT. SEE ATTACHED DOCUMENT FOR FULL DETAILS; SPECIFIC ISSUES WERE REVIEWED: 1) KEEP PAIN MEDS IN THEIR ORIGINAL BOTTLES AND ANY WEEKLY PLANNERS ARE TO BE BROUGHT TO THE PAIN CENTER AT EVERY VISIT. 2) THE PATIENT IS NOT TO INCREASE DOSING OR TIMING OF THEIR PAIN MEDICATION WITHOUT SPECIFIC DIRECTION OF THEIR PAIN CENTERPROVIDER (NOT ER OR OTHER PROVIDERS). 3) ALL PAIN MEDS ARE TO BE KEPT SECURED, IN A LOCKED BOX. 4) NO PAIN MEDS ARE TO BE SHARED WITH ANY OTHER PERSON FOR ANY REASON. 5) NO PAIN MEDS MAY BE TAKEN FROM ANY FRIENDS OR RELATIVES FOR ANY REASON 6) NO MEDS OR SUBSTANCES WHICH ARE NOT LEGAL ARE TO BE USED- NO MARIJUANA, NO COCAINE, AMPHETAMINES, HEROIN, OR OTHERS ARE EVER TO BE USED. 7)URINE TESTING IS DONE TO ACCOUNT FOR MEDS AND SUBSTANCES BEING TAKEN AND WILL BE DONE RANDOMLY. , RISKS OF NARCOTIC/OPIOD MEDICATIONS INCLUDES BUT IS NOT LIMITED TO RISK OF DEPENDANCE/DEVELOPMENT OF ADDICTION, MOOD DISTURBANCE AND DEPRESSION, OSTEOPOROSIS, HORMONAL AND LABIDAL CHANGES, RESPIRATORY DEPRESSION AND . PATIENT IS ADVISED NOT TO DRIVE OR DRINK ALCOHOL WHILE ON THESE MEDICATIONS , ISTOP REGISTRY REVIEWED AND DEMONSTRATES COMPLLIANCE. URINE TOX AT F/U. CLINICAL NOTES: PRE SCREENING CALL DONE 03/25/20 EM. PROCEDURE CODES FA211 ESTABILISHED PATIENT [facility] CHARGE DISPOSITION & COMMUNICATION FOLLOW UP 2 MONTHS (REASON: MED MGMNT/ORTHO APT EVAL/URINE TOX) ELECTRONICALLY SIGNED BY JOVAN JIMENES ON 03/30/2020 AT 03:48 PM EDT DISCLAIMER : THIS IS A VISIT SUMMARY EXTRACTED FROM THE [employer] CHART. IT IS NOT A COPY OF THE [employer] PROGRESS NOTE. GWEN
== END ==
LOC: M PAIN 11:00
PROVIDERS: ATTEND Nurse Practitioner Family
DX: M79.18 Myalgia, other site (principal); M25.511 Pain in right shoulder; G89.29 Other chronic pain; E11.9 Type 2 diabetes mellitus without complications; J44.9 Chronic obstructive pulmonary disease, unspecified; G40.909 Epilepsy, unspecified, not intractable, without status epilepticus; I10 Essential (primary) hypertension; Z87.891 Personal history of nicotine dependence; Z88.5 Allergy status to narcotic agent; I25.2 Old myocardial infarction; Z79.01 Long term (current) use of anticoagulants; Z79.51 Long term (current) use of inhaled steroids; Z79.82 Long term (current) use of aspirin; Z79.84 Long term (current) use of oral hypoglycemic drugs; Z79.899 Other long term (current) drug therapy

== ENCOUNTER → 2020-05-11 | Outpatient (CLI) | payer MEDICARE, MEDICAID ==
--- NOTE | 2020-05-24 01:10 | ECWPNPC ---
PATIENT NAME: MARCELINO FOWLER I : 1945 GENDER: FEMALE VISIT DATE: 05/11/2020 DISCHARGE DATE: 05/11/20 0000 VISIT LOCKED DATE TIME: PHYSICIAN: DAVON MA RESOURCE: DAVON MA REASON FOR APPOINTMENT 1. MED MGMT/ MRI RESULTS HISTORY OF PRESENT ILLNESS GENERAL: HERE FOR FOLLOW-UP AND MEDICINE MANAGEMENT FOR PERSISTENT RIGHT SHOULDER PAIN. HAS TRIED STEROID INJECTION WITHOUT IMPROVEMENT , WHICH WAS DONE AT [facility]. SHE WILL CONTACT THEM TO SEE IF THERE IS ANYTHING MORE THAT SHE CAN DO FOR PAIN. SHE HAS A LABRAL TEAR. STARTED HER ON PERCOCET AT HER LAST VISIT AND SHE FINDS IT HELPFUL. REPORTING IMPROVED SLEEP AT NIGHT WHEN SHE TAKES ONE. OCCASIONALLY DURING THE DAY SHE MAY TAKE A HALF A TABLET. I GIVE HER 45 TABLETS FOR A ONE-MONTH SUPPLY FOR CHRONIC RIGHT SHOULDER PAIN. -. FALL RISK SCREENING: SCREENING :NO FALLS REPORTED IN THE LAST YEAR PAIN SCREENING: PATIENT HAS A COMPLAINT OF ACUTE OR CHRONIC PAIN :YES LOCATION OF PAIN:RIGHT SHOULDER INTENSITY OF PAIN (SCALE OF 1 TO 10):10 WHAT DOES YOUR PAIN FEEL LIKE:ACHING, SHARP DURATION:CONTINOUS PAIN IS INCREASED BY:ACTIVITIES PAIN IS DECREASED BY: NOTHING NURSING NOTE: -. PAIN CENTER INTAKE QUESTIONS: DO YOU HAVE A HISTORY OF MRSA? :NO DO YOU TAKE A BLOOD THINNERS? :YES DO YOU HAVE ANY BLEEDING DISORDERS? :NO ANY NEW NUMBNESS OR WEAKNESS IN YOUR LEGS OR ARMS? :NO ANY PACEMAKER,DEFIBRILLATOR, OR DORSAL COLUMN STIMULATOR? :NO DO YOU HAVE ANY RASHES OR OPEN SORES? :NO ARE YOU ALLERGIC TO IV DYE? :NO ARE YOU DIABETIC? :YES ANY NEW PROBLEMS WITH YOUR MEDICATIONS? :NO HAVE YOU RECEIVED A VACCINE IN THE PAST 30 DAYS? :NO DO YOU PLAN TO RECEIVE A VACCINE IN THE NEXT 21 DAYS? :NO DO YOU NEED ANY PRESCRIPTION? :NO DO YOU TAKE ANY IMMUNOSUPPRESSIVE MEDICATIONS? :NO IS THERE A CHANCE YOU COULD BE ? :NO ARE YOU BREAST FEEDING? :NO CURRENT MEDICATIONS TAKING MAGNESIUM 400 MG CAPSULE 1 CAPSULES AT BEDTIME NEEDED ORALLY ONCE A DAY TAKING IRON COMPLEX - CAPSULE DIRECTED ORALLY TAKING ELIQUIS 5 MG TABLET DIRECTED ORALLY TAKING BUSPIRONE HCL 5 MG TABLET 1 TABLET ORALLY BID TAKING METFORMIN HCL 1000 MG TABLET 1 TABLET WITH A MEAL ORALLY BID TAKING IPRATROPIUM-ALBUTEROL 0.5-2.5 (3) MG/3ML SOLUTION 3 ML NEEDED INHALATION EVERY 6 HRS TAKING BREO ELLIPTA 200-25 MCG/INH AEROSOL POWDER BREATH ACTIVATED 1 PUFF INHALATION ONCE A DAY TAKING ALENDRONATE SODIUM 70 MG TABLET 1 CAP ORALLY WEEKLY TAKING VITAMIN D3 HIGH POTENCY 25 MCG (1000 UT) CAPSULE 1 CAPSULE ORALLY ONCE A DAY TAKING AMIODARONE HCL 200 MG TABLET 1 TABLET ORALLY ONCE A DAY TAKING ASPIR-LOW 81 MG TABLET DELAYED RELEASE 1 TABLET ORALLY ONCE A DAY TAKING CALCIUM CARBONATE-VIT D-MIN 600-400 MG-UNIT TABLET 1 TABLET WITH FOOD ORALLY TWICE A DAY TAKING FERROUS SULFATE 325 MG CAPSULE DIRECTED ORALLY TAKING FUROSEMIDE 40 MG TABLET DIRECTED ORALLY DAILY TAKING SALMETEROL XINAFOATE 50 MCG/DOSE AEROSOL POWDER BREATH ACTIVATED 1 PUFF INHALATION TWICE A DAY TAKING CARTIA XT 240 MG CAPSULE EXTENDED RELEASE 24 HOUR 1 CAPSULE ORALLY ONCE A DAY TAKING VITAMIN B-12 500 MCG TABLET 1 TABLET ORALLY ONCE A DAY TAKING ROPINIROLE HCL 1 MG TABLET 1 TABLET 1 TO 3 HOURS BEFORE BEDTIME ORALLY ONCE A DAY TAKING LEVEMIR 100 UNIT/ML SOLUTION DIRECTED SUBCUTANEOUS DIRECTED, NOTES: PER FBS READING TAKING HYDROCORTISONE 10 MG TABLET ORALLY TAKE 2 TABS BY MOUTH EVERY MORNING AND TAKE ONE TAB AT BEDTIME TAKING CLARITIN 10 MG TABLET 1 TABLET ORALLY ONCE A DAY TAKING VALPROIC ACID 250 MG CAPSULE 1 CAPSULE ORALLY THREE TIMES A DAY TAKING METOPROLOL TARTRATE 25 MG TABLET 1 TABLET WITH FOOD ORALLY TWICE A DAY TAKING CALCIUM CARB-CHOLECALCIFEROL 600-400 MG-UNIT TABLET 1 TABLET WITH A MEAL ORALLY ONCE A DAY TAKING CYANOCOBALAMIN 100 MCG TABLET DIRECTED ORALLY TAKING DILT-XR 120 MG CAPSULE EXTENDED RELEASE 24 HOUR 1 CAPSULE ORALLY ONCE A DAY TAKING FLUTICASONE PROPIONATE 50 MCG/DOSE SUSPENSION 1 SPRAY IN EACH NOSTRIL NASALLY ONCE A DAY TAKING ACETAMINOPHEN 500 MG CAPSULE 1-2 TABS ORALLY EVERY 6 HRS NEEDED NOT-TAKING PERCOCET 5-325 MG TABLET 1 TABLET NEEDED ORALLY EVERY 6 HRS PRN SEVERE PAIN MDD4 #45 TAB SHOULD LAST 30 DAYS NOT-TAKING PERCOCET 5-325 MG TABLET 1 TABLET NEEDED ORALLY EVERY 6 HRS NOT-TAKING NORCO 5-325 MG TABLET 1 TABLET NEEDED ORALLY EVERY 6 HRS NOT-TAKING VALIUM 2 MG TABLET 1 TABLET NEEDED ORALLY ONCE A DAY, NOTES: PRIOR TO MRI AND DIRECTED NOT-TAKING PANTOPRAZOLE SODIUM 40 MG TABLET DELAYED RELEASE 1 TABLET ORALLY ONCE A DAY MEDICATION LIST REVIEWED AND RECONCILED WITH THE PATIENT PAST MEDICAL HISTORY CLOSED FRACTURE OF THE METATARSAL BONE ADRENAL CORTICAL HYPOFUNCTION COPD WITH ACUTE EXACERBATIONS CONTUSION OF CHEST CORONARY ARTERIOSCLEROSIS LEUKOCYTOSIS NON-SPECIFIC COLITIS SEIZURE DISORDER SPRAIN OF COSTAL CARTILAGE SHOULDER STRAIN SUPRAVENTRICUALR TACHYCARDIA TABACCO USE ESSENTIAL HYPERTENSION PURE HYPERCHOLESTEROLEMIA ALLERGIES DARVON: NUMBNESS - ALLERGY SURGICAL HISTORY SPINAL SURGERY BILATERAL CATARACT FAMILY HISTORY FATHER: MOTHER: 1 SON(S) , 2 DAUGHTER(S) . FATHER- HEART DISEASEMOTHER- HEART DISEASE1 SON . SOCIAL HISTORY GENERAL: TOBACCO USE ARE YOU A:FORMER SMOKER VAPORNO E-CIGARETTENO LATEX QUESTIONNAIRE LATEX ALLERGY : HAVE YOU EVER DEVELOPED ANY TYPE OF REACTION AFTER HANDLING LATEX PRODUCTS SUCH RUBBER GLOVES, CONDOMS, DIAPHRAGMS, BALLOONS, SOCKS, OR UNDERWEAR?NO LATEX ALLERGY : HAVE YOU EVER DEVELOPED ANY TYPE OF REACTION DURING OR AFTER DENTAL APPOINTMENT, VAGINAL/RECTAL EXAMINATION, SURGICAL PROCEDURE, OR ANY OTHER EXPOSURE?NO LATEX RISK : HAVE YOU EVER HAD ANY DIFFICULTY BREATHING OR HIVES AFTER EATING OR HANDLING ANY FRUITS, OR VEGETABLES; SUCH KIWI, BANANAS, STONE FRUITS, OR CHESTNUTSNO LATEX RISK : DO YOU HAVE A PREVIOUS PERSONAL HISTORY OF MORE THAN NINE SURGERIES, SPINA BIFIDA, OR REPEATED CATHERIZATIONS? NO LATEX RISK : ARE YOU FREQUENTLY EXPOSED TO LATEX PRODUCTS IN YOUR OCCUPATION?NO DATE ASKED : 05/11/2020 ALCOHOL SCREENING DID YOU HAVE A DRINK CONTAINING ALCOHOL IN THE PAST YEAR?NO POINTS0 INTERPRETATIONNEGATIVE RECREATIONAL DRUG USE DRUG USE?NO PATIENT DENIES ABUSE OR MISSUSED OF ANY MEDICATION DENIES PATIENT DENIES USE OF ANY ILLEGAL SUBSTANCE INCLUDING MARIJUANA OR COCAINE DENIES CAFFEINE CAFFEINE USE?YES HOW OFTEN AND HOW MUCH? 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 LANGUAGE LANGUAGES SPOKEN:FIJIAN 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 CASH REGISTER MECHANIC NEEDED?NO DIET: REGULAR. EXERCISE: NO REGULAR EXERCISE. MARITAL STATUS: . OTHERS AT HOME: SPOUSE. NEW PATIENT PAIN DIARY TODAY'S VISIT 03/25/20 PATIENT DESCRIBES PAIN :ACHING, HAVE IT ALL THE TIME, SHARP, THROBBING, SORE FROM 0-10, WHAT LEVEL IS YOUR PAIN TODAY?10 PRECIPITATING FACTORS MOVEMENT. USE OF ARM ALLEVIATING FACTORS NOTHING IMPACT ON FUNCTION RESTRICTED USE OF ARM NAME OF PERSON DRIVING YOU HOME HCP IS THERE A CHANCE YOU COULD BE ?NO HAVE YOU BEEN SICK IN THE LAST WEEK (COLD, COUGH, FEVER, FLU, ETC)NO DO YOU TAKE ANY BLOOD THINNERS?YES LAST DOSE 03/16 DO YOU HAVE ANY RASHES OR OPEN SORES?NO ANY CHANGE IN BOWEL OR BLADDER CONTROL?NO ARE YOU ALLERGIC TO SHELLFISH OR IV DYE?NO ARE YOU DIABETIC?YES DO YOU HAVE A PACEMAKER OR DEFIBRILLATOR?NO ANY NEW PROBLEMS WITH MEDICINES OR NEW ALLERGIESNO ANY NEW PATTERNS OF PAIN OR NUMBNESS?NO ANY CHANGE IN YOUR MEDICAL CONDITION?NO HAVE YOU FALLEN IN THE LAST 6 MONTHS?NO DO YOU USE ANY TYPE OF TOBACCO (SMOKE, SMOKELESS, CHEW, ETC.)NO ARE YOU ABUSED, NEGLECTED, OR IN AN UNSAFE ENVIRONMENT?NO DO YOU HAVE THOUGHTS OF HURTING YOURSELF OR SOMEONE ELSE?NO DO YOU NEED ANY PRESCRIPTIONS?NO DO YOU HAVE ANY OTHER QUESTIONS OR CONCERNS?NO INTENSITY SCALE REVIEWEDNUMBER PAIN CLINIC PFS, CLERGY, PUBLIC HEALTH REFERRALS PFS REFERRAL NEEDED?NO CLERGY REFERRAL NEEDED?NO PUBLIC HEALTH REFERRAL NEEDED?NO WAS THE PROVIDER NOTIFIED OF ANY PERTINENT INFO?YES HAS THE PATIENT BEEN EDUCATED REGARDING HIS/HER PLAN OF CARE?YES HAS THE PATIENT BEEN EDUCATED REGARDING PAIN, THE RISK FOR PAIN, THE IMPORTANCE OF EFFECTIVE PAIN MANAGEMENT, AND THE PAIN ASSESSMENT PROCESS?YES HOUSING: OWNS HOME. ADVANCE DIRECTIVE ADVANCE DIRECTIVE DISCUSSED WITH PATIENT:YES PT HAS HCP- NAKIA FOWLER, ALSO HAS A MOLST ON FILE HOSPITALIZATION/MAJOR DIAGNOSTIC PROCEDURE CHF 09/01/2019 SOB WITH EXERTION 08/28/19 SVT 08/03/19 NON STEMI OR 06/2019 SVT 04/2019 SVT 03/2019 COLITIS, HYPOKALEMIA 01/2017 COPD 09/2016 SMALL BOWEL OBSTRUCTION 09/2015 SMALL BOWEL OBSTRUCTION, SOB, COPD 2014 SURGERIES REVIEW OF SYSTEMS CONSTITUTIONAL: ANY RECENT FEVER NO . CHILLS NO . WEIGHT CHANGE OF UNKNOWN REASONS NO . GASTROENTEROLOGY: NEW UNEXPLAINABLE CHANGES IN BOWEL CONTROL NO . CONSTIPATION NO . GENITOURINARY: ANY NEW CHANGE IN BLADDER CONTROL? NO . NEUROLOGY: NEW ONSET DIZZINESS OR NEUROLOGICAL CHANGES NOT MENTIONED NO . NEW NUMBNESS OR PAIN PATTERNS NOT MENTIONED AND PERTINENT TO TODAY'S VISIT NO . CARDIOLOGY: NEW CHEST PRESSURE NO . NEW CHEST PAIN NO . RESPIRATORY: UNEXPLAINABLE COUGH NO . NEW SHORTNESS OF BREATH NO . VITAL SIGNS WT 125.2 LBS, HT 51 IN, BMI 33.84 INDEX, BP 134/61 MM HG, HR 77 /MIN, RR 18 /MIN, TEMP 97.2 F, OXYGEN SAT % 95%, NA INITIALS AW 1414. EXAMINATION GENERAL EXAMINATION: GENERALAWAKE,ALERT ,PLEASANT . PSYCHAFFECT NORMAL . LUNGS:LUNG MARTÍNEZ ARE CLEAR TO AUSCULTATION BILATERALLY. GOOD MOVEMENT OF AIR . HEART:S1, S2 IN A REGULAR RATE AND RHYTHM. NO SIGNIFICANT MURMURS, RUBS OR GALLOPS NOTED . ASSESSMENTS PAIN IN RIGHT SHOULDER - M25.511 (PRIMARY) TREATMENT PAIN IN RIGHT SHOULDER REFILL PERCOCET TABLET, 5-325 MG, 1 TABLET NEEDED, ORALLY, EVERY 6 HRS PRN SEVERE PAIN MDD4 #45 TAB SHOULD LAST 30 DAYS, 30 DAYS, 45, REFILLS 0 NOTES: GRANDDAUGHTER ACCOMPANIES HER AT VISIT TODAY. PLAN IS TO CONTINUE USE OF PERCOCET PERIODICALLY FOR SEVERE PAIN EPISODES. SHE IS AWARE THAT SHE CAN CALL OUR OFFICE NUMBER AND REQUEST REFILLS. SHE IS AWARE THAT SHE IS SUPPOSED TO BRING IN HER MEDICATION EVERY VISIT. URINE TOXICOLOGY TODAY. FOLLOW-UP IS SCHEDULED IN CLINIC IN 3 MONTHS. SHE IS AWARE THAT WE NEED DOCUMENTATION THAT SHE HAS A CLINIC VISIT EVERY 3 MONTHS IN ORDER TO REFILL MEDICATION REQUESTED ON PRESCRIPTION LINE. , ISTOP REGISTRY REVIEWED AND DEMONSTRATES COMPLLIANCE. URINE TOXICOLOGY TODAY , RISKS OF NARCOTIC/OPIOD MEDICATIONS INCLUDES BUT IS NOT LIMITED TO RISK OF DEPENDANCE/DEVELOPMENT OF ADDICTION, MOOD DISTURBANCE AND DEPRESSION, OSTEOPOROSIS, HORMONAL AND LABIDAL CHANGES, RESPIRATORY DEPRESSION AND . PATIENT IS ADVISED NOT TO DRIVE OR DRINK ALCOHOL WHILE ON THESE MEDICATIONS. DISPOSITION & COMMUNICATION FOLLOW UP 3 MONTHS (REASON: MED MANAGEMENT CHRONIC RIGHT SHOULDER PAIN) ELECTRONICALLY SIGNED BY JOVAN JIMENES ON 05/23/2020 AT 04:21 PM EDT DISCLAIMER : THIS IS A VISIT SUMMARY EXTRACTED FROM THE [employer] CHART. IT IS NOT A COPY OF THE [employer] PROGRESS NOTE. GWEN
== END ==
LOC: M PAIN 14:15
PROVIDERS: ATTEND Nurse Practitioner Family
DX: M25.511 Pain in right shoulder (principal)

== ENCOUNTER → 2020-07-21 | Outpatient (CLI) | payer MEDICARE, MEDICAID ==
[~2020-07-21] MED LIST changes: +**Note Patient Comment XX; +ACET1TAB55 PO; +ACET25TA12 PO; +ALPR1TAB3 PO; -AMIO200T PO; +AMIO200T3 PO; +AMLO1TAB24 PO; -AMLO5TAB6 PO; +B-121TAB3 PO; +BASA100I SC; +BISA10SU PR; +CALC1TAB74 PO; +CORT5TAB2 PO; +DILT240C47 PO; +DIPH50CA PO; +ENAL20TA11 PO; +ENEMENE PR; +FLOM0.4C39 PO; -FLUTISP; +FLUTISP NARES; +IPRA0.00 NEB; +KLOR10TA76 PO; +LEVA12INH INH; +LIDO5TD TD; +METF10004 PO; +MOM30SS2 PO; +NICO7PA TOP; +NITR4TASL SL; +OMEP-218 PO; +OXYC1TAB23 PO; +PANT40TA29 PO; -PANT40TA3 PO; +PERCOCET PO; +TORS10TA3 PO; +TRAZ-252 PO; +TREL1AER INH; +VITA200021 PO
--- NOTE | 2020-08-11 10:45 | REP ---
CHEST X-RAY CLINICAL: Shortness of breath. TECHNIQUE: PA and lateral. COMPARISON: 01/10/2020. FINDINGS: Mediastinum and cardiac silhouette are normal. Lung oshea demonstrate stable chronic interstitial changes and old healed bilateral rib fractures. No consolidation, effusion, or pneumothorax. Fixation at the cervical spine is again noted as well and there is an old proximal left humerus fracture. IMPRESSION: Chronic stable changes. No acute consolidation or effusion. MTDD
== END ==
LOC: M WUC 15:39
PROVIDERS: ATTEND Physician Assistant
DX: R06.02 Shortness of breath (principal)

== ENCOUNTER 2020-07-29 09:19 | Inpatient (IN) | payer MEDICARE, MEDICAID ==
[~2020-07-29] VITALS: Ht 154.9 cm; Wt 61.9 kg
[~2020-07-29 09:19] MED LIST changes: -**Note Patient Comment XX; -ACET1TAB55 PO; -ACET25TA12 PO; -ALPR1TAB3 PO; -B-121TAB3 PO; -BASA100I SC; -BISA10SU PR; -CALC1TAB74 PO; -CORT5TAB2 PO; -DILT240C47 PO; -DIPH50CA PO; -ENEMENE PR; -FLOM0.4C39 PO; +FUROSEMIDE 40 MG TAB PO SCH; -IPRA0.00 NEB; -KLOR10TA76 PO; -LEVA12INH INH; -LIDO5TD TD; -METF10004 PO; -MOM30SS2 PO; -NICO7PA TOP; -NITR4TASL SL; -OMEP-218 PO; -OXYC1TAB23 PO; -PERCOCET PO; -TORS10TA3 PO; -TRAZ-252 PO; -TREL1AER INH; -VITA200021 PO
[2020-07-29] MEDS ORDERED: IPRATROPIUM 0.02% SOLN 0.5MG 2.5ML NEB INH ONE (09:45)
[2020-07-29] MEDS ORDERED: ALBUTEROL SULFATE 2.5 MG/0.5 ML INH NEB SOLN INH ONE (09:45)
[2020-07-29] MEDS ORDERED: methylPREDNISolone 125MG 2ML VIAL IV ONE (09:45)
--- NOTE | 2020-07-29 10:05 | REPVR ---
PROCEDURE INFORMATION: Exam: XR Chest, 1 View Exam date and time: 07/29/2020 9:48 AM Age: 75 years old Clinical indication: Cough and shortness of breath; Additional info: Dyspnea/cough TECHNIQUE: Imaging protocol: XR of the chest Views: 1 view. COMPARISON: CR CHEST 2 VIEW 07/21/2020 3:51 PM FINDINGS: Lungs: Lingular pleural thickening or interstitial scarring. Pleural space: Unremarkable. No pleural effusion. No pneumothorax. Heart/Mediastinum: Heart size is similar. Vasculature: Calcified thoracic aorta. Bones/joints: Multiple bilateral chronic rib fracture deformities. Osteopenia with fracture deformity of the left humerus proximally. Surgical hardware positioning cervical spine at multiple levels. IMPRESSION: Stable chest without acute process. Electronically signed by: Lorena Alonso On 07/29/2020 10:05:26 AM
[2020-07-29 10:18] LABS: VENOUS HCO3 25.4 MEQ/L (23.0-27.0); VENOUS O2 SATURATION 83.9 % (60.0-80.0); VENOUS PARTIAL PRESSURE CO2 39.9 mmHg (38.0-50.0); VENOUS PARTIAL PRESSURE O2 47.8 mmHg (30.0-50.0); VENOUS PH 7.422 UNITS (7.330-7.430); VENOUS STANDARD HCO3 25.1 MEQ/L; VENOUS TOTAL CO2 26.6 MEQ/L (24.0-28.0)
[2020-07-29 10:20] LABS: BASO % 0.1 % (0.0-1.0); EOS % 0.1 % (0.0-3.0); LYMPH # 1.3 10^3/uL (1.5-5.0); LYMPH % 8.8 % (24.0-44.0); MEAN CORPUSCULAR HEMOGLOBIN 28.2 pg (27.0-33.0); MEAN CORPUSCULAR HGB CONC 30.3 g/dl (32.0-36.5); MEAN CORPUSCULAR VOLUME 93.2 fl (80.0-96.0); MONO # 1.6 10^3/uL (0.0-0.8); MONO % 11.2 % (0.0-5.0); NEUTROPHILS # 11.3 10^3/uL (1.5-8.5); NEUTROPHILS % 79.1 % (36.0-66.0); PLATELET COUNT, AUTOMATED 652 10^3/uL (150-450); RED BLOOD COUNT 3.54 10^6/uL (4.00-5.40); WHITE BLOOD COUNT 14.2 10^3/uL (4.0-10.0)
[2020-07-29 10:32] LABS: INR 1.12; PROTHROMBIN TIME 14.6 SECONDS (12.5-14.3)
[2020-07-29] MEDS ORDERED: NORCO, ANEXSIA 5/325MG TABLET (HYDROcodone/ACETAMINOPHEN) PO ONE (10:45)
[2020-07-29] MEDS ORDERED: INSUDET SC (10:59)
[2020-07-29] MEDS ORDERED: VITA200021 PO (10:59)
[2020-07-29] MEDS ORDERED: TREL1AER INH (10:59)
[2020-07-29] MEDS ORDERED: OXYC1TAB23 PO (10:59)
[2020-07-29] MEDS ORDERED: ELIQ5TAB PO (10:59)
[2020-07-29] MEDS ORDERED: B-121TAB3 PO (10:59)
[2020-07-29] MEDS ORDERED: DILT240C47 PO (10:59)
[2020-07-29] MEDS ORDERED: METF10004 PO (10:59)
[2020-07-29] MEDS: IPRATROPIUM 0.5MG/ALBUTEROL 2.5MG INH SOL UD 3ML (DUONEB) NEB SCH ×3 (11:00→19:50)
[2020-07-29] MEDS ORDERED: PRED20TA PO (11:02)
[2020-07-29] MEDS ORDERED: IPRA0.00 NEB (11:02)
[2020-07-29] MEDS ORDERED: CEFD300CAP PO (11:02)
[2020-07-29] MEDS ORDERED: ROPI1TAB3 PO (11:02)
[2020-07-29 11:03] LABS: ALBUMIN 3.4 GM/DL (3.2-5.2); ALT/SGPT 24 U/L (12-78); BILIRUBIN,DIRECT < 0.1 MG/DL (0.0-0.2); BILIRUBIN,TOTAL 0.5 MG/DL (0.2-1.0); BLOOD UREA NITROGEN 25 MG/DL (7-18); CALCIUM LEVEL 9.2 MG/DL (8.8-10.2); CARBON DIOXIDE LEVEL 30 MEQ/L (21-32); CHLORIDE LEVEL 99 MEQ/L (98-107); CREATININE FOR GFR 1.05 MG/DL (0.55-1.30); GLOMERULAR FILTRATION RATE 54.2 (>39); GLUCOSE, FASTING 215 MG/DL (70-100); NT-PRO BNP 2083 PG/ML (<450); POTASSIUM SERUM 6.9 MEQ/L (3.5-5.1); SODIUM LEVEL 134 MEQ/L (136-145); TOTAL PROTEIN 7.5 GM/DL (6.4-8.2)
[2020-07-29] MEDS ORDERED: FUROSEMIDE 40MG/4ML VIAL (J1940) IV STA (12:28)
[2020-07-29] MEDS ORDERED: CALCIUM GLUCONATE 1,000 MG in D5W MINI-BAG PLUS 100 ML IV STA (12:28)
[2020-07-29] MEDS ORDERED: ACETAMINOPHEN 500 MG TAB PO PRN (14:00)
[2020-07-29] MEDS: cefTRIAXone SOD 1 GM in D5W MINI-BAG PLUS 50 ML IV SCH (14:18)
[2020-07-29] MEDS: AZITHROMYCIN 250MG TABLET PO SCH (14:18)
[2020-07-29] MEDS ORDERED: DEXTROSE 50% 50 ML SYRINGE IV PRN (14:45)
[2020-07-29] MEDS ORDERED: GLUCAGON INJ 1MG VIAL SC PRN (14:45)
[2020-07-29] MEDS ORDERED: GLUCOSE 4GM CHEW TABLET PO PRN (14:45)
[2020-07-29 15:07] VITALS: BP 148/85
--- NOTE | 2020-07-29 15:20 | HPEPDOC ---
General Date of Admission Jul 29, 2020 at 12:26 Date of Service: Jul 29, 2020 Attending Physician: ALLEGRA WILL DO Chief Complaint The patient is a 75-year-old female admitted with a reason for visit of Copd With Acute Exacerbation Hyperkalemia. Source: Patient Exam Limitations: No limitations History of Present Illness Mrs. Solano is a 75 year old female with COPD, DM, Afib, and hypertension here with upper back pain, dyspnea, and a productive cough. A couple of weeks ago, she started to notice upper back pain. Denies trauma and extraneous exercise. She has tried Tylenol without relief. Then she started to have dyspnea. Denies sick contacts. About 2 days ago, she developed a productive cough. She went to urgent care and received prednisone and cefdinir which did not help her symptoms. She came into the ED. CXR demonstrated lingular pleural thickening or interstitial scaring, but not an acute process. WBC was elevated at 14.2. Potassium was 6.9, but that was hemolyzed. Repeat POC potassium was 3.4. When they tried to get her up to walk, she would desaturate to 88 and so they called for admission When I saw her, she was in an isolation room, pending results of the respiratory panel. She was sitting up watching TV. She was hard of hearing, but answered questions appropriately. Denies fever/chills, chest pain, abominal pain, or dysuria. She has intermittent diarrhea and dyspnea. The productive cough was new. We spoke about code status, and she said she has 3 grandchildren and wants to be around for them. She was a former smoker, but recently picked up smoking again. We spoke about smoking cessation. Home Medications Scheduled Alendronate Sodium (Alendronate Sodium) 70 Mg Tablet, 70 MG PO QWEEK, (Reported) SATURDAY Amiodarone HCl (Amiodarone HCl) 200 Mg Tablet, 200 MG PO 3XW, (Reported) SATURDAY, SATURDAY AND SATURDAY Apixaban (Eliquis) 5 Mg Tablet, 5 MG PO BID, (Reported) Aspirin (Aspirin) 81 Mg Tab.chew, 81 MG PO DAILY, (Reported) Buspirone HCl (Buspirone HCl) 5 Mg Tablet, 5 MG PO BID, (Reported) Cefdinir (Cefdinir) 300 Mg Capsule, 300 MG PO BID, (Reported) FILLED 07/26/20 FOR 10 DAYS Cholecalciferol (Vitamin D3) (Vitamin D3) 50 Mcg Capsule, 2,000 UNITS PO DAILY, (Reported) Cyanocobalamin (Vitamin B-12) (B-12) 500 Mcg Tablet, 500 MCG PO DAILY, (Reported) Diltiazem HCl (Diltiazem 24Hr ER) 240 Mg Cap.er.24h, 240 MG PO BID, (Reported) Ferrous Sulfate (Ferrous Sulfate) 325 Mg Tablet, 325 MG PO DAILY, (Reported) Fluticasone Propionate (Fluticasone Propionate) 16 Gm Bimble.susp, 2 SPRAYS NARES DAILY, (Reported) Fluticasone/Umeclidin/Vilanter (Trelegy Ellipta 100-62.5-25) 1 Each Blst.w.dev, 1 PUFF INH DAILY, (Reported) Furosemide (Furosemide) 40 Mg Tablet, 40 MG PO DAILY, (Reported) Hydrocortisone (Hydrocortisone) 10 Mg Tablet, 20 MG PO BID, (Reported) Insulin Detemir (Levemir) 100 Unit/1 Ml Vial, 12 UNITS SC DAILY, (Reported) Magnesium Oxide (Magnesium Oxide) 400 Mg Tablet, 400 MG PO BID, (Reported) Metformin HCl (Metformin HCl) 1,000 Mg Tablet, 1,000 MG PO BID, (Reported) Prednisone (Prednisone) 20 Mg Tablet, 40 MG PO DAILY, (Reported) FILLED 07/26/20 FOR 5 DAYS Ropinirole HCl (Ropinirole HCl) 1 Mg Tablet, 1 MG PO QHS, (Reported) Scheduled PRN Acetaminophen (Acetaminophen) 500 Mg Tablet, 500 MG PO Q4H PRN for PAIN, (Reported) Ipratropium/Albuterol Sulfate (Iprat-Albut 0.5-3(2.5) mg/3 ml) 3 Ml Ampul.neb, 1 VIAL NEB Q4H PRN for SOB/WHEEZING, (Reported) Oxycodone HCl/Acetaminophen (Oxycodone-Acetaminophen 5-325) 1 Each Tablet, 1 TAB PO Q4H PRN for PAIN, (Reported) Allergies Coded Allergies: propoxyphene (Verified Allergy, Intermediate, hives, 08/28/19) Past Medical History Medical History 1. CVA and TIA 2. Seizure 25 years ago 3. Diastolic heart failure 4. SVT 5. Atrial fibrillation 6. Chronic bronchitis, COPD 7. Rib fracture 4 weeks ago 8. History of SBO 9. Adrenal insufficiency 10. Urinary retention 11. Arthritis 12. Anxiety 13. 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 Anemia 15. Fractured 8th vertebra Surgical History 1. Bilateral cataracts 2. L breast biopsy 3. Hysterectomy 4. Cervical and thoracic spine surgery 5. Family History Father: Diabetes Mother: COPD Social History * Smoker: current smoker (Recently started smoking again, previously had a 75 pack year smoking history) Alcohol: Denies Drugs: denies A-FIB/CHADSVASC A-FIB History Current/History of A-Fib/PAF?: Yes Current PO Anticoag Therapy: Yes Review of Systems Constitutional: Denies: Chills, Fever Eyes: Denies: Vision change ENT: Denies: Head Aches Skin: Denies: Rash Pulmonary: Reports: Dyspnea, Cough (Productive) Cardiovascular: Denies: Chest Pain Gastrointestinal: Reports: Diarrhea (intermittent); Denies: Nausea, Abdominal Pain Genitourinary: Denies: Dysuria Musculoskeletal: Reports: Back Pain Neurological: Denies: Numbness Psych: Reports: Mood Normal Physical Examination General Exam: Positive: Alert, Cooperative, Mild Distress Eye Exam: Positive: EOMI; Negative: Sclera icteric ENT Exam: Positive: Atraumatic, Mucous membr. moist/pink Neck Exam: Positive: Supple Chest Exam: Positive: Wheezing (especially heard anteriorly) Heart Exam: Positive: Rate Normal Abdomen Exam: Positive: Normal bowel sounds, Soft; Negative: Tenderness Extremity Exam: Positive: Swelling (bilateral pitting edema) Neuro Exam: Positive: Cranial Nerves 3-12 NL Psych Exam: Positive: Mental status NL, Mood NL Vital Signs Vital Signs Date Time Temp Pulse Resp B/P (MAP) Pulse Ox O2 Delivery O2 Flow Rate FiO2 07/29/20 14:25 98.0 74 20 141/67 (91) 93 07/29/20 10:36 Room Air Laboratory Data Labs 24H Laboratory Tests 2 07/29/20 10:04: Immature Granulocyte % (Auto) 0.7, Neutrophils (%) (Auto) 79.1H, Lymphocytes (%) (Auto) 8.8L, Monocytes (%) (Auto) 11.2H, Eosinophils (%) (Auto) 0.1, Basophils (%) (Auto) 0.1, Neutrophils # (Auto) 11.3H, Lymphocytes # (Auto) 1.3L, Monocytes # (Auto) 1.6H, Eosinophils # (Auto) 0.0, Basophils # (Auto) 0.0, Nucleated Red Blood Cells % (auto) 0.4H, Prothrombin Time 14.6H, Prothromb Time International Ratio 1.12, POC Glucose (Misc Panel) 223H, POC Sodium (Misc Panel) 139, POC Potassium (Misc Panel) 3.4L, POC Chloride (Misc Panel) 96L, POC Total CO2 (Misc Panel) 29.0H, POC Blood Urea Nitrogen (Misc Panel 24, POC Ionized Calcium (Misc Panel) 4.4L, POC Creatinine (Misc Panel) 0.9, POC Hematocrit (Misc Panel) 34.0L, Blood Gas Bicarbonate Standard 25.1, Venous Blood pH 7.422, Venous Blood Partial Pressure CO2 39.9, Venous Blood Partial Pressure O2 47.8, Venous Blood Total Carbon Dioxide 26.6, Venous Blood HCO3 25.4, Venous Blood Oxygen Saturation 83.9H, Venous Blood Base Excess 1.0, Anion Gap 5L, Glomerular Filtration Rate 54.2, Lactic Acid Level 3.6*H, Calcium Level 9.2, Total Bilirubin 0.5, Direct Bilirubin < 0.1, Aspartate Amino Transf (AST/SGOT) 66H, Alanine Aminotransferase (ALT/SGPT) 24, Alkaline Phosphatase 57, IL-Jsz-U-Type Natriuretic Peptide 2083H, Total Protein 7.5, Albumin 3.4, Albumin/Globulin Ratio 0.8L, Thyroid Stimulating Hormone (TSH) 0.240L 07/29/20 10:07: POC Troponin I (Misc) 0.01 CBC/BMP Laboratory Tests 07/29/20 10:04 Microbiology Microbiology 07/29/20 Respiratory Virus Panel (PCR) ([facility]) - Final, Complete 07/29/20 Blood Culture, Received Pending 07/29/20 Blood Culture, Received Pending Assessment/Plan Mrs. Solano is a 75 year old female with COPD, here with COPD exacerbation. She has wheezing, new productive cough, and desaturation with ambulation. We will get sputum culture, blood culture, and urinary legionella/pneumococcal antigen. We will start her on IV steroids with breathing treatments while awake. Ceftriaxone and azithromycin to empirically treat Plan / VTE VTE Prophylaxis Ordered?: Yes Plan Plan 1. COPD exacerbation - New productive cough, wheezing on auscultation, dyspnea. - Breathing treatments, IV steroids, ceftriaxone, and azithromycin - Pending blood cultures, sputum culture, and urinary legionella/pneumococcal antigen 2. Atrial fibrillation - Rate controlled. Continue amiodarone and diltiazem. On apixaban for stroke ppx. 3. CHF - Appears to be compensated. Continue with furosemide 4. DM - Blood glucose appears to be elevated, but she was started on prednisone outpatient. Will hold metformin and put on sliding scale insulin. Continue Levemir 12 units daily 5. Back pain - History of vertebral fracture and rib fractures. Continue PRN Percocet 6. Adrenal insufficiency - We will hold the hydrocortisone since she will be receiving IV steroids. Plan to taper back to home hydrocortisone dosages. 7. Anxiety - Continue buspirone 8 DVT ppx - On apixaban ALLEGRA WILL DO Jul 29, 2020 14:39
[2020-07-29] MEDS: FERROUS SULFATE 325MG TAB PO SCH (15:43)
[2020-07-29] MEDS: CYANOCOBALAMIN 500 MCG TAB PO SCH (15:43)
[2020-07-29] MEDS: ASPIRIN 81 MG CHEW TABLET PO SCH (15:43)
[2020-07-29] MEDS: AMIODARONE 200 MG TAB (PACERONE) PO SCH (15:43)
[2020-07-29] MEDS: PERCOCET 5MG/325MG TAB PO PRN ×2 (15:44→21:18)
[2020-07-29 16:00] VITALS: BP 136/65
[2020-07-29] MEDS: LEVEMIR (INSULIN DETEMIR) 1 UNITS/0.01ML SC SCH (16:01)
[2020-07-29 16:54] LABS: BLOOD UREA NITROGEN 25 MG/DL (7-18); CALCIUM LEVEL 8.3 MG/DL (8.8-10.2); CARBON DIOXIDE LEVEL 29 MEQ/L (21-32); CHLORIDE LEVEL 97 MEQ/L (98-107); CREATININE FOR GFR 0.93 MG/DL (0.55-1.30); GLOMERULAR FILTRATION RATE > 60.0 (>39); GLUCOSE, FASTING 332 MG/DL (70-100); POTASSIUM SERUM 3.6 MEQ/L (3.5-5.1); SODIUM LEVEL 136 MEQ/L (136-145)
[2020-07-29] MEDS ORDERED: LORazepam 0.5 MG TAB PO ONE (17:30)
[2020-07-29] MEDS: NICOTINE 14 MG/24 HR TRANSDERMAL TD SCH (17:49)
[2020-07-29] MEDS: HumaLOG INSULIN (NovoLOG) PER UNIT SC SCH ×2 (17:50→21:13)
[2020-07-29] MEDS: FLUTICASONE PROP 0.05% NASAL SPRAY 16 GM (FLONASE) NARES SCH (17:50)
--- NOTE | 2020-07-29 19:01 | REPVR ---
PROCEDURE INFORMATION: Exam: CT Cervical Spine Without Contrast Exam date and time: 07/29/2020 5:25 PM Age: 75 years old Clinical indication: Other: Upper back pain TECHNIQUE: Imaging protocol: Computed tomography images of the cervical spine without contrast. Radiation optimization: All CT scans at this facility use at least one of these dose optimization techniques: automated exposure control; mA and/or kV adjustment per patient size (includes targeted exams where dose is matched to clinical indication); or iterative reconstruction. COMPARISON: No relevant prior studies available. FINDINGS: Vertebrae: No traumatic segmental malalignment of cervical spine or craniocervical junction. Patient has surgical hardware involving the posterior elements at C3 through C7 with right laminectomies at those levels. No evidence of hardware complication . Disc spaces: Degenerative anterolisthesis C4-C5 measures 3 mm and C3-C4 measures 2 mm. Moderate spinal canal stenosis C3-C4 and C4-C5 secondary to these anterolisthesis and mild spinal canal stenosis at C5-C6 secondary to posterior vertebral osteophytes Vertebral body height is maintained at all levels. No acute fracture. No destructive or blastic cervical spine osseous lesion. Intervertebral disc height is decreased at multiple levels, with typical degenerative pattern and associated endplate, articular pillar and uncovertebral spurs. Osseous neural foraminal stenoses are present mild bilateral C3-C4, moderate bilateral C4-C5, moderately severe bilateral C5-C6 and mild to moderate C6-C7. Prevertebral Space: Prevertebral soft tissues demonstrate no asymmetry. Lungs: No concerning abnormality of the imaged lung apices. IMPRESSION: 1. No acute fracture or traumatic subluxation of the cervical spine. 2. Multilevel degenerative disc and articular pillar arthropathy, with osseous spinal canal and neural foraminal stenoses as described.. Electronically signed by: Mohan Domingo On 07/29/2020 19:01:10 PM
--- NOTE | 2020-07-29 19:21 | REPVR ---
PROCEDURE INFORMATION: Exam: CT Thoracic Spine Without Contrast Exam date and time: 07/29/2020 5:25 PM Age: 75 years old Clinical indication: Other: Upper back pain TECHNIQUE: Imaging protocol: Computed tomography images of the thoracic spine without contrast. Radiation optimization: All CT scans at this facility use at least one of these dose optimization techniques: automated exposure control; mA and/or kV adjustment per patient size (includes targeted exams where dose is matched to clinical indication); or iterative reconstruction. COMPARISON: CT Spine,thoracic w/o contrast 11/06/2014 11:28 PM FINDINGS: No segmental malalignment of the vertebral bodies. Compression fracture deformity involving the T3 vertebral body with vertebra plana compression and focal kyphosis. This was not present on the remote CT from October 2014. It is of indeterminate chronicity. Mild height loss at T6 and T7 is present, similar to the prior CT. No fracture or destructive process. Intervertebral disc height is maintained, appropriate for age. No paraspinous soft tissue mass or focal soft tissue edema. IMPRESSION: Insufficiency fracture involving the T3 vertebral body with vertebra plana morphology and focal kyphosis. Chronicity is unknown based on the appearance. This deformity is new since a chest CT from June 28, 2019. Electronically signed by: Mohan Domingo On 07/29/2020 19:21:08 PM
[2020-07-29 20:00] VITALS: BP 136/65
[2020-07-29] MEDS ORDERED: HYDROCORTISONE 10 MG TAB PO SCH (21:00)
[2020-07-29] MEDS: methylPREDNISolone 125MG 2ML VIAL IV SCH (21:14)
[2020-07-29] MEDS: rOPINIRole 1MG TAB PO SCH (21:17)
[2020-07-29] MEDS: MAGNESIUM OXIDE 400 MG TAB (MAG-OX) PO SCH (21:17)
[2020-07-29] MEDS: APIXABAN 5 MG TAB (ELIQUIS) PO SCH (21:17)
[2020-07-29] MEDS: busPIRone 5 MG TAB PO SCH (21:17)
[2020-07-30] VITALS: BP 121/60
[2020-07-30] MEDS: PERCOCET 5MG/325MG TAB PO PRN ×3 (03:13→21:03)
[2020-07-30 04:00] VITALS: BP 131/63
[2020-07-30] MEDS: IPRATROPIUM 0.5MG/ALBUTEROL 2.5MG INH SOL UD 3ML (DUONEB) NEB SCH ×7 (04:57→22:31)
[2020-07-30 05:29] LABS: BASO % 0.1 % (0.0-1.0); HEMATOCRIT 29.9 % (36.0-47.0); HEMOGLOBIN 8.9 g/dl (12.0-15.5); LYMPH # 0.3 10^3/uL (1.5-5.0); LYMPH % 2.3 % (24.0-44.0); MEAN CORPUSCULAR HEMOGLOBIN 27.8 pg (27.0-33.0); MEAN CORPUSCULAR HGB CONC 29.8 g/dl (32.0-36.5); MEAN CORPUSCULAR VOLUME 93.4 fl (80.0-96.0); MONO # 0.3 10^3/uL (0.0-0.8); MONO % 2.9 % (0.0-5.0); NEUTROPHILS # 10.1 10^3/uL (1.5-8.5); PLATELET COUNT, AUTOMATED 583 10^3/uL (150-450); WHITE BLOOD COUNT 10.7 10^3/uL (4.0-10.0)
[2020-07-30 05:47] LABS: BLOOD UREA NITROGEN 29 MG/DL (7-18); CALCIUM LEVEL 8.3 MG/DL (8.8-10.2); CARBON DIOXIDE LEVEL 32 MEQ/L (21-32); CHLORIDE LEVEL 99 MEQ/L (98-107); CREATININE FOR GFR 0.87 MG/DL (0.55-1.30); GLOMERULAR FILTRATION RATE > 60.0 (>39); GLUCOSE, FASTING 296 MG/DL (70-100); SODIUM LEVEL 138 MEQ/L (136-145)
[2020-07-30 08:00] VITALS: BP 134/63
[2020-07-30] MEDS: busPIRone 5 MG TAB PO SCH ×2 (09:41→21:05)
[2020-07-30] MEDS: AZITHROMYCIN 250MG TABLET PO SCH (09:41)
[2020-07-30] MEDS: FERROUS SULFATE 325MG TAB PO SCH (09:41)
[2020-07-30] MEDS: FUROSEMIDE 40 MG TAB PO SCH (09:41)
[2020-07-30] MEDS: CYANOCOBALAMIN 500 MCG TAB PO SCH (09:41)
[2020-07-30] MEDS: APIXABAN 5 MG TAB (ELIQUIS) PO SCH ×2 (09:41→21:04)
[2020-07-30] MEDS: ASPIRIN 81 MG CHEW TABLET PO SCH (09:41)
[2020-07-30] MEDS: NICOTINE 14 MG/24 HR TRANSDERMAL TD SCH (09:42)
[2020-07-30] MEDS: LEVEMIR (INSULIN DETEMIR) 1 UNITS/0.01ML SC SCH (09:42)
[2020-07-30] MEDS: MAGNESIUM OXIDE 400 MG TAB (MAG-OX) PO SCH ×2 (09:42→21:04)
[2020-07-30] MEDS: FLUTICASONE PROP 0.05% NASAL SPRAY 16 GM (FLONASE) NARES SCH (09:42)
[2020-07-30] MEDS: HumaLOG INSULIN (NovoLOG) PER UNIT SC SCH ×4 (09:43→21:00)
[2020-07-30] MEDS: methylPREDNISolone 125MG 2ML VIAL IV SCH ×2 (09:43→21:05)
--- NOTE | 2020-07-30 10:58 | IPNPDOC ---
Subjective Date Seen The patient was seen on 07/30/20. Subjective Chief Complaint/HPI Mrs. Solano is a 75 year old female with adrenal insufficiency, COPD, and arthritis here with with low back pain and dyspnea 2/2 COPD exacerbation. Last night, she was still complaining of back pain. CT of the thoracic spine demonstrated a T3 vertebral body insufficiency fracture was found. She will need to follow up with a spine surgeon outpatient. Otherwise, this morning she still has back pain. She has dyspnea, but getting better. Denies fever/chills, chest pain, abdominal pain, dysuria, or diarrhea. Constitutional: Denies: Chills, Fever Pulmonary: Reports: Dyspnea Cardiovascular: Denies: Chest Pain Gastrointestinal: Denies: Nausea, Abdominal Pain, Diarrhea Genitourinary: Denies: Dysuria Musculoskeletal: Reports: Back Pain Objective Physical Examination General Exam: Positive: Alert, Cooperative, Mild Distress Eye Exam: Positive: EOMI; Negative: Sclera icteric ENT Exam: Positive: Atraumatic, Mucous membr. moist/pink Neck Exam: Positive: Supple Chest Exam: Positive: Other (course breath sounds) Heart Exam: Positive: Rate Normal Abdomen Exam: Positive: Normal bowel sounds, Soft; Negative: Tenderness Extremity Exam: Positive: Swelling (bilateral pitting edema) Neuro Exam: Positive: Cranial Nerves 3-12 NL Psych Exam: Positive: Mental status NL, Mood NL Assessment /Plan Assessment Mrs. Solano is a 75 year old female with COPD, here with COPD exacerbation. She has wheezing, new productive cough, and desaturation with ambulation. We will get sputum culture, blood culture, and urinary legionella/pneumococcal antigen. We will start her on IV steroids with breathing treatments while awake. Ceftriaxone and azithromycin to empirically treat. She was also having back pain that suddenly started a few weeks ago located in the upper back. CT thoracic demonstrates an insufficiency fracture of T3. Will need pain control and follow up outpatient with a spine surgeon Plan/VTE VTE Prophylaxis Ordered?: Yes Plan 1. COPD exacerbation - New productive cough, wheezing on auscultation, dyspnea. - Breathing treatments, IV steroids, ceftriaxone, and azithromycin - Pending blood cultures, sputum culture, and urinary legionella/pneumococcal antigen 2. Atrial fibrillation - Rate controlled. Continue amiodarone and diltiazem. On apixaban for stroke ppx. 3. CHF - Appears to be compensated. Continue with furosemide 4. DM - Blood glucose appears to be elevated, but she was started on prednisone outpatient. Will hold metformin and put on sliding scale insulin. Continue Levemir 12 units daily 5. Upper back pain - CT thoracic spine demonstrates T3 insufficiency fracture - Will need to follow up outpatient with spine surgeon - Pain control with PRN Percocet 6. Adrenal insufficiency - We will hold the hydrocortisone since she will be receiving IV steroids. Plan to taper back to home hydrocortisone dosages. 7. Anxiety - Continue buspirone 8. Debility - Spoke with family last night. Concern about her ability to ambulated. PT/OT ordered and recommendations appreciated 9 DVT ppx - On apixaban VS, I&O, 24H, Fishbone Vital Signs/I&O Vital Signs Date Time Temp Pulse Resp B/P (MAP) Pulse Ox O2 Delivery O2 Flow Rate FiO2 07/30/20 09:41 87 134/63 07/30/20 08:00 97.6 18 85 Room Air I&O- Last 24 Hours up to 6 AM 07/30/20 06:00 Intake Total 950 ml Output Total 200 ml Balance 750 ml Laboratory Data 24H LABS Laboratory Tests 2 07/29/20 14:45: Lactic Acid Followup at 4 Hours 1.5 07/29/20 15:48: Bedside Glucose (Misc Panel) 305H 07/29/20 15:54: Anion Gap 10, Glomerular Filtration Rate > 60.0, Calcium Level 8.3L 07/29/20 17:39: Bedside Glucose (Misc Panel) 366H 07/29/20 20:00: Bedside Glucose (Misc Panel) 282H 07/30/20 05:13: Immature Granulocyte % (Auto) 0.7, Neutrophils (%) (Auto) 94.0H, Lymphocytes (%) (Auto) 2.3L, Monocytes (%) (Auto) 2.9, Eosinophils (%) (Auto) 0.0, Basophils (%) (Auto) 0.1, Neutrophils # (Auto) 10.1H, Lymphocytes # (Auto) 0.3L, Monocytes # (Auto) 0.3, Eosinophils # (Auto) 0.0, Basophils # (Auto) 0.0, Nucleated Red Blood Cells % (auto) 0.3H, Anion Gap 7L, Glomerular Filtration Rate > 60.0, Calcium Level 8.3L CBC/BMP Laboratory Tests 07/29/20 15:54 07/30/20 05:13 Microbiology Microbiology 07/29/20 Respiratory Virus Panel (PCR) ([facility]) - Final, Complete 07/29/20 Blood Culture - Preliminary, Resulted No growth after 24 hours . All specim... 07/29/20 Blood Culture - Preliminary, Resulted No growth after 24 hours . All specim... ALLEGRA WILL DO Jul 30, 2020 10:58
--- NOTE | 2020-07-30 11:58 | ECGEPIP ---
[facility] - ED Test Date: 2020-07-29 Pat Name: MARCELINO FOWLER Department: Room: - Gender: Female [employer] Tender: : [id number] Requested By: Karen Oconnell Order Number: [id number] Reading MD: Kade Cervantes Measurements Intervals Deposit Rate: 79 P: 69 CA: 175 QRS: 25 QRSD: 94 T: 156 QT: 336 QTc: 386 Interpretive Statements SINUS RHYTHM WITH OCCASIONAL SUPRAVENTRICULAR PREMATURE COMPLEXES POOR R WAVE PROGRESSION NONSPECIFIC ST & T-WAVE ABNORMALITY BASELINE ARTIFACT AFFECTS INTERPRETATION RHYTHM CHANGE COMPARED TO 08/28/19 Electronically Signed on 07-30-2020 11:58:01 EDT by Kade Cervantes
[2020-07-30 12:40] VITALS: BP 115/53
[2020-07-30 14:00] VITALS: BP 100/40
[2020-07-30] MEDS: cefTRIAXone SOD 1 GM in D5W MINI-BAG PLUS 50 ML IV SCH (15:37)
[2020-07-30] MEDS: rOPINIRole 1MG TAB PO SCH (21:04)
[2020-07-30 22:00] VITALS: BP 126/53
[2020-07-31 02:00] VITALS: BP 141/61
[2020-07-31] MEDS: IPRATROPIUM 0.5MG/ALBUTEROL 2.5MG INH SOL UD 3ML (DUONEB) NEB SCH ×6 (03:52→23:00)
[2020-07-31] MEDS: PERCOCET 5MG/325MG TAB PO PRN ×4 (04:24→20:09)
[2020-07-31 06:00] VITALS: BP 140/49
[2020-07-31 07:55] LABS: BASO % 0.1 % (0.0-1.0); HEMATOCRIT 27.7 % (36.0-47.0); HEMOGLOBIN 8.4 g/dl (12.0-15.5); LYMPH # 0.2 10^3/uL (1.5-5.0); MEAN CORPUSCULAR HEMOGLOBIN 27.8 pg (27.0-33.0); MEAN CORPUSCULAR HGB CONC 30.3 g/dl (32.0-36.5); MEAN CORPUSCULAR VOLUME 91.7 fl (80.0-96.0); MONO # 0.9 10^3/uL (0.0-0.8); MONO % 4.7 % (0.0-5.0); NEUTROPHILS # 17.7 10^3/uL (1.5-8.5); NEUTROPHILS % 93.2 % (36.0-66.0); PLATELET COUNT, AUTOMATED 536 10^3/uL (150-450); RED BLOOD COUNT 3.02 10^6/uL (4.00-5.40)
[2020-07-31 09:54] LABS: BLOOD UREA NITROGEN 28 MG/DL (7-18); CARBON DIOXIDE LEVEL 31 MEQ/L (21-32); CHLORIDE LEVEL 95 MEQ/L (98-107); CREATININE FOR GFR 0.87 MG/DL (0.55-1.30); GLOMERULAR FILTRATION RATE > 60.0 (>39); GLUCOSE, FASTING 361 MG/DL (70-100); POTASSIUM SERUM 4.3 MEQ/L (3.5-5.1); SODIUM LEVEL 133 MEQ/L (136-145)
[2020-07-31] MEDS: AZITHROMYCIN 250MG TABLET PO SCH (09:55)
[2020-07-31] MEDS: methylPREDNISolone 125MG 2ML VIAL IV SCH (09:55)
[2020-07-31] MEDS: ASPIRIN 81 MG CHEW TABLET PO SCH (09:55)
[2020-07-31] MEDS: busPIRone 5 MG TAB PO SCH ×2 (09:56→20:07)
[2020-07-31] MEDS: FERROUS SULFATE 325MG TAB PO SCH (09:56)
[2020-07-31] MEDS: APIXABAN 5 MG TAB (ELIQUIS) PO SCH ×2 (09:58→20:07)
[2020-07-31] MEDS: CYANOCOBALAMIN 500 MCG TAB PO SCH (09:58)
[2020-07-31] MEDS: MAGNESIUM OXIDE 400 MG TAB (MAG-OX) PO SCH ×2 (09:58→20:07)
[2020-07-31] MEDS: FUROSEMIDE 40 MG TAB PO SCH (09:58)
[2020-07-31] MEDS: NICOTINE 14 MG/24 HR TRANSDERMAL TD SCH (09:59)
[2020-07-31] MEDS: LEVEMIR (INSULIN DETEMIR) 1 UNITS/0.01ML SC SCH (09:59)
[2020-07-31] MEDS: FLUTICASONE PROP 0.05% NASAL SPRAY 16 GM (FLONASE) NARES SCH (10:00)
[2020-07-31] MEDS: HumaLOG INSULIN (NovoLOG) PER UNIT SC SCH ×4 (10:16→20:00)
[2020-07-31 14:00] VITALS: BP 130/60
[2020-07-31] MEDS: cefTRIAXone SOD 1 GM in D5W MINI-BAG PLUS 50 ML IV SCH (14:47)
--- NOTE | 2020-07-31 18:44 | IPNPDOC ---
Subjective Date Seen The patient was seen on 07/31/20. Subjective Chief Complaint/HPI Mrs. Solano is a 75 year old female with adrenal insufficiency, COPD, and arthritis here with with low back pain and dyspnea 2/2 COPD exacerbation. She was seen in the morning. She reports occasional dyspnea, but she has been saturating well. Will give IS to help with breathing. Back pain persists. Denies fever/chills, chest pain, abdominal pain, dysuria, or diarrhea. Constitutional: Denies: Chills, Fever Pulmonary: Reports: Dyspnea (occasional), Cough (productive) Cardiovascular: Denies: Chest Pain Gastrointestinal: Denies: Nausea, Abdominal Pain, Diarrhea Genitourinary: Denies: Dysuria Objective Physical Examination General Exam: Positive: Alert, Cooperative, Mild Distress Eye Exam: Positive: EOMI; Negative: Sclera icteric ENT Exam: Positive: Atraumatic, Mucous membr. moist/pink Neck Exam: Positive: Supple Chest Exam: Positive: Other (course breath sounds) Heart Exam: Positive: Rate Normal Abdomen Exam: Positive: Normal bowel sounds, Soft; Negative: Tenderness Extremity Exam: Positive: Swelling (bilateral pitting edema) Neuro Exam: Positive: Cranial Nerves 3-12 NL Psych Exam: Positive: Mental status NL, Mood NL Assessment /Plan Assessment Mrs. Solano is a 75 year old female with COPD, here with COPD exacerbation. She has wheezing, new productive cough, and desaturation with ambulation. We will get sputum culture, blood culture, and urinary legionella/pneumococcal antigen. We will start her on IV steroids with breathing treatments while awake. Ceftriaxone and azithromycin to empirically treat. She was also having back pain that suddenly started a few weeks ago located in the upper back. CT thoracic demonstrates an insufficiency fracture of T3. Will need pain control and follow up outpatient with a spine surgeon Plan/VTE VTE Prophylaxis Ordered?: Yes Plan 1. COPD exacerbation - New productive cough, wheezing on auscultation, dyspnea. - Breathing treatments, ceftriaxone, and azithromycin - Weaning steroid dose - Pending blood cultures, sputum culture, and urinary legionella/pneumococcal antigen 2. Atrial fibrillation - Rate controlled. Continue amiodarone and diltiazem. On apixaban for stroke ppx. 3. CHF - Appears to be compensated. Continue with furosemide 4. DM - Blood glucose appears to be elevated, but she was started on prednisone outpatient. Will hold metformin and put on sliding scale insulin. Continue Levemir 12 units daily 5. Upper back pain - CT thoracic spine demonstrates T3 insufficiency fracture - Will need to follow up outpatient with spine surgeon - Pain control with PRN Percocet 6. Adrenal insufficiency - We will hold the hydrocortisone since she will be receiving IV steroids. Plan to taper back to home hydrocortisone dosages. 7. Anxiety - Continue buspirone 8. Debility - PT/OT ordered and recommendations appreciated 9 DVT ppx - On apixaban VS, I&O, 24H, Fishbone Vital Signs/I&O Vital Signs Date Time Temp Pulse Resp B/P (MAP) Pulse Ox O2 Delivery O2 Flow Rate FiO2 07/31/20 15:30 17 07/31/20 14:00 98.6 80 130/60 (83) 90 Nasal Cannula 2.0 I&O- Last 24 Hours up to 6 AM 07/31/20 06:00 Intake Total 1086 ml Output Total 400 ml Balance 686 ml Laboratory Data 24H LABS Laboratory Tests 2 07/30/20 19:36: Bedside Glucose (Misc Panel) 187H 07/31/20 07:14: Immature Granulocyte % (Auto) 1.0, Neutrophils (%) (Auto) 93.2H, Lymphocytes (%) (Auto) 1.0L, Monocytes (%) (Auto) 4.7, Eosinophils (%) (Auto) 0.0, Basophils (%) (Auto) 0.1, Neutrophils # (Auto) 17.7H, Lymphocytes # (Auto) 0.2L, Monocytes # (Auto) 0.9H, Eosinophils # (Auto) 0.0, Basophils # (Auto) 0.0, Nucleated Red Blood Cells % (auto) 0.3H, Anion Gap 7L, Glomerular Filtration Rate > 60.0, Calcium Level 8.0L 07/31/20 11:47: Bedside Glucose (Misc Panel) 507*H 07/31/20 16:42: Bedside Glucose (Misc Panel) 71L CBC/BMP Laboratory Tests 07/31/20 07:14 Microbiology Microbiology 07/29/20 Respiratory Virus Panel (PCR) ([facility]) - Final, Complete 07/29/20 Blood Culture - Preliminary, Resulted No Growth after 48 hours. All Specime... 07/29/20 Blood Culture - Preliminary, Resulted No Growth after 48 hours. All Specime... MAR,ALLEGRA Cal ARNOLD Jul 31, 2020 18:44
[2020-07-31] MEDS: CEFDINIR 300 MG CAP (OMNICEF) PO SCH (20:06)
[2020-07-31] MEDS: predniSONE 20 MG TAB PO SCH (20:06)
[2020-07-31] MEDS: rOPINIRole 1MG TAB PO SCH (20:07)
[2020-07-31 22:00] VITALS: BP 132/61
[2020-08-01] MEDS: PERCOCET 5MG/325MG TAB PO PRN ×2 (02:59→10:01)
[2020-08-01] MEDS: IPRATROPIUM 0.5MG/ALBUTEROL 2.5MG INH SOL UD 3ML (DUONEB) NEB SCH ×5 (03:01→19:25)
[2020-08-01 06:00] VITALS: BP 123/50
[2020-08-01 06:43] LABS: BASO % 0.1 % (0.0-1.0); HEMATOCRIT 28.2 % (36.0-47.0); HEMOGLOBIN 8.6 g/dl (12.0-15.5); LYMPH # 0.2 10^3/uL (1.5-5.0); LYMPH % 0.9 % (24.0-44.0); MEAN CORPUSCULAR HEMOGLOBIN 28.1 pg (27.0-33.0); MEAN CORPUSCULAR HGB CONC 30.5 g/dl (32.0-36.5); MEAN CORPUSCULAR VOLUME 92.2 fl (80.0-96.0); MONO # 1.1 10^3/uL (0.0-0.8); MONO % 5.9 % (0.0-5.0); NEUTROPHILS # 17.5 10^3/uL (1.5-8.5); NEUTROPHILS % 91.7 % (36.0-66.0); PLATELET COUNT, AUTOMATED 559 10^3/uL (150-450); RED BLOOD COUNT 3.06 10^6/uL (4.00-5.40); WHITE BLOOD COUNT 19.1 10^3/uL (4.0-10.0)
[2020-08-01 07:11] LABS: BLOOD UREA NITROGEN 28 MG/DL (7-18); CARBON DIOXIDE LEVEL 35 MEQ/L (21-32); CHLORIDE LEVEL 92 MEQ/L (98-107); CREATININE FOR GFR 0.92 MG/DL (0.55-1.30); GLOMERULAR FILTRATION RATE > 60.0 (>39); GLUCOSE, FASTING 321 MG/DL (70-100); POTASSIUM SERUM 3.8 MEQ/L (3.5-5.1); SODIUM LEVEL 137 MEQ/L (136-145)
[2020-08-01 07:12] LABS: CALCIUM LEVEL 8.2 MG/DL (8.8-10.2)
[2020-08-01] MEDS: HumaLOG INSULIN (NovoLOG) PER UNIT SC SCH ×4 (07:30→21:00)
[2020-08-01] MEDS: NICOTINE 14 MG/24 HR TRANSDERMAL TD SCH (09:38)
[2020-08-01] MEDS: AZITHROMYCIN 250MG TABLET PO SCH (09:39)
[2020-08-01] MEDS: CEFDINIR 300 MG CAP (OMNICEF) PO SCH ×2 (09:39→20:57)
[2020-08-01] MEDS: ASPIRIN 81 MG CHEW TABLET PO SCH (09:39)
[2020-08-01] MEDS: predniSONE 20 MG TAB PO SCH (09:41)
[2020-08-01] MEDS: busPIRone 5 MG TAB PO SCH ×2 (09:41→20:57)
[2020-08-01] MEDS: APIXABAN 5 MG TAB (ELIQUIS) PO SCH ×2 (09:41→20:57)
[2020-08-01] MEDS: MAGNESIUM OXIDE 400 MG TAB (MAG-OX) PO SCH ×2 (09:41→20:57)
[2020-08-01] MEDS: FUROSEMIDE 40 MG TAB PO SCH (09:41)
[2020-08-01] MEDS: FERROUS SULFATE 325MG TAB PO SCH (09:42)
[2020-08-01] MEDS: CYANOCOBALAMIN 500 MCG TAB PO SCH (09:42)
[2020-08-01] MEDS: LEVEMIR (INSULIN DETEMIR) 1 UNITS/0.01ML SC SCH (09:42)
[2020-08-01] MEDS: AMIODARONE 200 MG TAB (PACERONE) PO SCH (09:42)
[2020-08-01] MEDS: FLUTICASONE PROP 0.05% NASAL SPRAY 16 GM (FLONASE) NARES SCH (09:43)
[2020-08-01 13:54] LABS: ABG BASE EXCESS 10.9 (-2.0-2.0); ABG HCO3 34.3 MEQ/L (22.0-26.0); ABG O2 SATURATION 92.4 % (95.0-99.0); ABG PARTIAL PRESSURE CO2 40.8 mmHg (35.0-45.0); ABG PARTIAL PRESSURE O2 58.9 mmHg (75.0-100.0); ABG STANDARD HCO3 34.5 MEQ/L (22.0-26.0); ABG TOTAL CO2 35.6 MEQ/L (23.0-31.0); ABG pH (ARTERIAL) 7.543 UNITS (7.350-7.450)
[2020-08-01 14:00] VITALS: BP 125/61
[2020-08-01] MEDS ORDERED: ONDANSETRON 4MG/2ML VIAL As Ordered ONE (15:02)
[2020-08-01] MEDS: ONDANSETRON 4MG/2ML VIAL IV PRN ×2 (15:15→21:12)
[2020-08-01] MEDS: ACETAMINOPHEN 500 MG TAB PO SCH ×2 (15:48→21:05)
[2020-08-01] MEDS: methylPREDNISolone 125MG 2ML VIAL IV SCH (15:49)
[2020-08-01] MEDS: PROMETHAZINE INJ 25 MG/ML VIAL (J2550) IV PRN ×2 (16:24→22:16)
--- NOTE | 2020-08-01 20:13 | IPNPDOC ---
Subjective Date Seen The patient was seen on 08/01/20. Subjective Chief Complaint/HPI Mrs. Solano is a 75 year old female with adrenal insufficiency, COPD, and arthritis here with with low back pain and dyspnea 2/2 COPD exacerbation. She was seen in the morning. She reports occasional dyspnea, but she has been saturating well. This morning, we were able to wean off of oxygen, but became lethargic. Check ABG which demonstrated a low PO2 and normal PCO2. Put her back on oxygen. She was feeling nausea and started on Zofran. Denies fever/chills, chest pain, abdominal pain, dysuria, or diarrhea. Constitutional: Denies: Chills, Fever Pulmonary: Reports: Dyspnea Cardiovascular: Denies: Chest Pain Gastrointestinal: Reports: Nausea Genitourinary: Denies: Dysuria Objective Physical Examination General Exam: Positive: Alert, Cooperative, Mild Distress Eye Exam: Positive: EOMI; Negative: Sclera icteric ENT Exam: Positive: Atraumatic, Mucous membr. moist/pink Neck Exam: Positive: Supple Chest Exam: Positive: Other (course breath sounds) Heart Exam: Positive: Rate Normal Abdomen Exam: Positive: Normal bowel sounds, Soft; Negative: Tenderness Extremity Exam: Positive: Swelling (bilateral pitting edema) Neuro Exam: Positive: Cranial Nerves 3-12 NL Psych Exam: Positive: Mental status NL, Mood NL Assessment /Plan Assessment Mrs. Solano is a 75 year old female with COPD, here with COPD exacerbation. She has wheezing, new productive cough, and desaturation with ambulation. We will get sputum culture, blood culture, and urinary legionella/pneumococcal antigen. We will start her on IV steroids with breathing treatments while awake. Ceftriaxone and azithromycin to empirically treat. She was also having back pain that suddenly started a few weeks ago located in the upper back. CT thoracic demonstrates an insufficiency fracture of T3. Will need pain control and follow up outpatient with a spine surgeon Plan/VTE VTE Prophylaxis Ordered?: Yes Plan 1. COPD exacerbation - New productive cough, wheezing on auscultation, dyspnea. - Breathing treatments, ceftriaxone, and azithromycin - Went back up on steroids due to hypoxia and nausea - Pending blood cultures, sputum culture, and urinary legionella/pneumococcal antigen 2. Atrial fibrillation - Rate controlled. Continue amiodarone and diltiazem. On apixaban for stroke ppx. 3. CHF - Appears to be compensated. Continue with furosemide 4. DM - Blood glucose appears to be elevated, but she was started on prednisone outpatient. Will hold metformin and put on sliding scale insulin. Continue Levemir 12 units daily 5. Upper back pain - CT thoracic spine demonstrates T3 insufficiency fracture - Will need to follow up outpatient with spine surgeon - Pain control with PRN Percocet 6. Adrenal insufficiency - We will hold the hydrocortisone since she will be receiving IV steroids. Plan to taper back to home hydrocortisone dosages. 7. Anxiety - Continue buspirone 8. Debility - PT/OT ordered and recommendations appreciated 9 DVT ppx - On apixaban VS, I&O, 24H, Fishbone Vital Signs/I&O Vital Signs Date Time Temp Pulse Resp B/P (MAP) Pulse Ox O2 Delivery O2 Flow Rate FiO2 08/01/20 14:00 98.9 84 20 125/61 (82) 100 Nasal Cannula 3.0 I&O- Last 24 Hours up to 6 AM 08/01/20 06:00 Intake Total 900 ml Output Total 200 ml Balance 700 ml Laboratory Data 24H LABS Laboratory Tests 2 08/01/20 06:10: Immature Granulocyte % (Auto) 1.4, Neutrophils (%) (Auto) 91.7H, Lymphocytes (%) (Auto) 0.9L, Monocytes (%) (Auto) 5.9H, Eosinophils (%) (Auto) 0.0, Basophils (%) (Auto) 0.1, Neutrophils # (Auto) 17.5H, Lymphocytes # (Auto) 0.2L, Monocytes # (Auto) 1.1H, Eosinophils # (Auto) 0.0, Basophils # (Auto) 0.0, Nucleated Red Blood Cells % (auto) 0.2H, Anion Gap 10, Glomerular Filtration Rate > 60.0, Calcium Level 8.2L 08/01/20 12:11: Bedside Glucose (Misc Panel) 258H 08/01/20 13:38: Blood Gas Bicarbonate Standard 34.5H, Arterial Blood pH 7.543H, Arterial Blood Partial Pressure CO2 40.8, Arterial Blood Partial Pressure O2 58.9L, Arterial Blood Total CO2 35.6H, Arterial Blood HCO3 34.3H, Arterial Blood Base Excess 10.9H, Arterial Blood Oxygen Saturation 92.4L 08/01/20 16:59: Bedside Glucose (Misc Panel) 63L 08/01/20 17:06: Bedside Glucose (Misc Panel) 72L 08/01/20 18:12: Bedside Glucose (Misc Panel) 107 CBC/BMP Laboratory Tests 08/01/20 06:10 Microbiology Microbiology 07/29/20 Respiratory Virus Panel (PCR) ([facility]) - Final, Complete 07/29/20 Blood Culture - Preliminary, Resulted No Growth after 72 hours. All specime... 07/29/20 Blood Culture - Preliminary, Resulted No Growth after 72 hours. All specime... ALLEGRA WILL DO Aug 01, 2020 20:13
[2020-08-01] MEDS: guaiFENesin ER 600 MG TAB PO SCH (20:57)
[2020-08-01] MEDS: rOPINIRole 1MG TAB PO SCH (20:57)
[2020-08-01 22:00] VITALS: BP 150/67
[2020-08-02] MEDS: IPRATROPIUM 0.5MG/ALBUTEROL 2.5MG INH SOL UD 3ML (DUONEB) NEB SCH ×7 (00:57→23:11)
[2020-08-02] MEDS: ONDANSETRON 4MG/2ML VIAL IV PRN ×2 (03:14→08:18)
[2020-08-02] MEDS: methylPREDNISolone 125MG 2ML VIAL IV SCH ×4 (03:14→20:08)
[2020-08-02 06:00] VITALS: BP 148/68
[2020-08-02 06:04] LABS: HEMATOCRIT 31.8 % (36.0-47.0); HEMOGLOBIN 9.6 g/dl (12.0-15.5); LYMPH # 0.1 10^3/uL (1.5-5.0); LYMPH % 0.5 % (24.0-44.0); MEAN CORPUSCULAR HEMOGLOBIN 28.2 pg (27.0-33.0); MEAN CORPUSCULAR HGB CONC 30.2 g/dl (32.0-36.5); MEAN CORPUSCULAR VOLUME 93.3 fl (80.0-96.0); MONO # 1.1 10^3/uL (0.0-0.8); MONO % 4.4 % (0.0-5.0); NEUTROPHILS # 24.3 10^3/uL (1.5-8.5); NEUTROPHILS % 94.2 % (36.0-66.0); PLATELET COUNT, AUTOMATED 560 10^3/uL (150-450); RED BLOOD COUNT 3.41 10^6/uL (4.00-5.40); WHITE BLOOD COUNT 25.8 10^3/uL (4.0-10.0)
[2020-08-02 06:24] LABS: CALCIUM LEVEL 8.7 MG/DL (8.8-10.2); CREATININE FOR GFR 1.16 MG/DL (0.55-1.30); GLOMERULAR FILTRATION RATE 48.4 (>39); POTASSIUM SERUM 3.9 MEQ/L (3.5-5.1)
[2020-08-02] MEDS: NICOTINE 14 MG/24 HR TRANSDERMAL TD SCH (08:17)
[2020-08-02] MEDS: LEVEMIR (INSULIN DETEMIR) 1 UNITS/0.01ML SC SCH (08:18)
[2020-08-02] MEDS: AZITHROMYCIN 250MG TABLET PO SCH (08:19)
[2020-08-02] MEDS: ACETAMINOPHEN 500 MG TAB PO SCH ×3 (08:21→20:07)
[2020-08-02] MEDS: CEFDINIR 300 MG CAP (OMNICEF) PO SCH ×2 (08:21→20:05)
[2020-08-02] MEDS: CYANOCOBALAMIN 500 MCG TAB PO SCH (08:21)
[2020-08-02] MEDS: FUROSEMIDE 40 MG TAB PO SCH (08:21)
[2020-08-02] MEDS: busPIRone 5 MG TAB PO SCH ×2 (08:22→20:07)
[2020-08-02] MEDS: guaiFENesin ER 600 MG TAB PO SCH ×2 (08:22→20:07)
[2020-08-02] MEDS: APIXABAN 5 MG TAB (ELIQUIS) PO SCH ×2 (08:22→20:05)
[2020-08-02] MEDS: ASPIRIN 81 MG CHEW TABLET PO SCH (08:22)
[2020-08-02] MEDS: FLUTICASONE PROP 0.05% NASAL SPRAY 16 GM (FLONASE) NARES SCH (08:23)
[2020-08-02] MEDS: FERROUS SULFATE 325MG TAB PO SCH (08:23)
[2020-08-02] MEDS: MAGNESIUM OXIDE 400 MG TAB (MAG-OX) PO SCH ×2 (08:23→20:07)
[2020-08-02] MEDS: HumaLOG INSULIN (NovoLOG) PER UNIT SC SCH ×4 (08:28→19:57)
--- NOTE | 2020-08-02 10:42 | IPNPDOC ---
Subjective Date Seen The patient was seen on 08/02/20. Subjective Chief Complaint/HPI Mrs. Solano is a 75 year old female with adrenal insufficiency, COPD, and arthritis here with with low back pain and dyspnea 2/2 COPD exacerbation. Yesterday, she continued to be nauseated. That evening she had multiple episodes of emesis. May be secondary to fast steroid taper vs steroid induced gastritis. Will start H2 jamal and liquid Carafate. Will go back up on steroids and wean slower. Denies fever/chills, chest pain, abdominal pain, dysuria, or diarrhea. Constitutional: Denies: Chills, Fever Cardiovascular: Denies: Chest Pain Gastrointestinal: Reports: Nausea; Denies: Diarrhea Genitourinary: Denies: Dysuria Objective Physical Examination General Exam: Positive: Alert, Cooperative, Mild Distress Eye Exam: Positive: EOMI; Negative: Sclera icteric ENT Exam: Positive: Atraumatic, Mucous membr. moist/pink Neck Exam: Positive: Supple Chest Exam: Positive: Other (course breath sounds) Heart Exam: Positive: Rate Normal Abdomen Exam: Positive: Normal bowel sounds, Soft; Negative: Tenderness Extremity Exam: Positive: Swelling (bilateral pitting edema) Neuro Exam: Positive: Cranial Nerves 3-12 NL Psych Exam: Positive: Mental status NL, Mood NL Assessment /Plan Assessment Mrs. Solano is a 75 year old female with COPD, here with COPD exacerbation. She has wheezing, new productive cough, and desaturation with ambulation. We will get sputum culture, blood culture, and urinary legionella/pneumococcal antigen. We will start her on IV steroids with breathing treatments while awake. Ceftriaxone and azithromycin to empirically treat. She was also having back pain that suddenly started a few weeks ago located in the upper back. CT thoracic demonstrates an insufficiency fracture of T3. Will need pain control and follow up outpatient with a spine surgeon. She has been having persistent nausea and vomiting since yesterday. Question gastritis 2/2 steroids vs rapid steroid taper. Will put her on a clear liquid diet, start H2 jamal, liquid carafate. Plan/VTE VTE Prophylaxis Ordered?: Yes Plan 1. COPD exacerbation - New productive cough, wheezing on auscultation, dyspnea. - Breathing treatments, ceftriaxone, and azithromycin - Went back up on steroids due to hypoxia and nausea - Pending blood cultures, Negative for 72 hours 2. Persistent nausea - May be secondary to rapid steroid taper vs gastritis from steroids - Clear liquid diet, liquid carafate, famotidine - PRN zofran 3. Atrial fibrillation - Rate controlled. Continue amiodarone and diltiazem. On apixaban for stroke ppx. 4. CHF - Appears to be compensated. Continue with furosemide 5. DM - Blood glucose appears to be elevated, but she was started on prednisone outpatient. Will hold metformin and put on sliding scale insulin. Continue Levemir 12 units daily 6. Upper back pain - CT thoracic spine demonstrates T3 insufficiency fracture - Will need to follow up outpatient with spine surgeon - Pain control with PRN Percocet 7. Adrenal insufficiency - We will hold the hydrocortisone since she will be receiving IV steroids. Plan to taper back to home hydrocortisone dosages. 8. Anxiety - Continue buspirone 9. Debility - PT/OT ordered and recommendations appreciated 10 DVT ppx - On apixaban VS, I&O, 24H, Fishbone Vital Signs/I&O Vital Signs Date Time Temp Pulse Resp B/P (MAP) Pulse Ox O2 Delivery O2 Flow Rate FiO2 08/02/20 08:22 73 143/66 08/02/20 06:36 99.4 08/02/20 06:00 19 95 Nasal Cannula 2.0 I&O- Last 24 Hours up to 6 AM 08/02/20 06:00 Intake Total 720 ml Output Total 600 ml Balance 120 ml Laboratory Data 24H LABS Laboratory Tests 2 08/01/20 12:11: Bedside Glucose (Misc Panel) 258H 08/01/20 13:38: Blood Gas Bicarbonate Standard 34.5H, Arterial Blood pH 7.543H, Arterial Blood Partial Pressure CO2 40.8, Arterial Blood Partial Pressure O2 58.9L, Arterial Blood Total CO2 35.6H, Arterial Blood HCO3 34.3H, Arterial Blood Base Excess 10.9H, Arterial Blood Oxygen Saturation 92.4L 08/01/20 16:59: Bedside Glucose (Misc Panel) 63L 08/01/20 17:06: Bedside Glucose (Misc Panel) 72L 08/01/20 18:12: Bedside Glucose (Misc Panel) 107 08/01/20 21:04: Bedside Glucose (Misc Panel) 168H 08/02/20 05:50: Anion Gap 11, Glomerular Filtration Rate 48.4, Calcium Level 8.7L 08/02/20 05:51: Immature Granulocyte % (Auto) 0.9, Neutrophils (%) (Auto) 94.2H, Lymphocytes (%) (Auto) 0.5L, Monocytes (%) (Auto) 4.4, Eosinophils (%) (Auto) 0.0, Basophils (%) (Auto) 0.0, Neutrophils # (Auto) 24.3H, Lymphocytes # (Auto) 0.1L, Monocytes # (Auto) 1.1H, Eosinophils # (Auto) 0.0, Basophils # (Auto) 0.0, Nucleated Red Blood Cells % (auto) 0.2H CBC/BMP Laboratory Tests 08/02/20 05:50 08/02/20 05:51 Microbiology Microbiology 07/29/20 Respiratory Virus Panel (PCR) ([facility]) - Final, Complete 07/29/20 Blood Culture - Preliminary, Resulted No Growth after 72 hours. All specime... 07/29/20 Blood Culture - Preliminary, Resulted No Growth after 72 hours. All specime... ALLEGRA WILL DO Aug 02, 2020 10:42
[2020-08-02] MEDS: traMADol 50 MG TAB PO PRN (10:57)
[2020-08-02] MEDS: SUCRALFATE SUSP 1GM/10ML UD PO SCH ×2 (10:58→17:18)
[2020-08-02] MEDS: FAMOTIDINE 20 MG TAB PO SCH (10:58)
[2020-08-02 13:55] LABS: ABG BASE EXCESS 15.2 (-2.0-2.0); ABG HCO3 39.6 MEQ/L (22.0-26.0); ABG O2 SATURATION 96.9 % (95.0-99.0); ABG PARTIAL PRESSURE CO2 48.6 mmHg (35.0-45.0); ABG PARTIAL PRESSURE O2 82.1 mmHg (75.0-100.0); ABG TOTAL CO2 41.1 MEQ/L (23.0-31.0); ABG pH (ARTERIAL) 7.529 UNITS (7.350-7.450)
[2020-08-02 14:00] VITALS: BP 132/62
--- NOTE | 2020-08-02 14:04 | REPVR ---
PROCEDURE INFORMATION: Exam: XR Chest, 1 View Exam date and time: 08/02/2020 1:50 PM Age: 75 years old Clinical indication: Shortness of breath; Additional info: Hypoxia, decrease sats TECHNIQUE: Imaging protocol: XR of the chest Views: 1 view. COMPARISON: CR PORTABLE CHEST X-RAY 07/29/2020 9:42 AM FINDINGS: Lungs: There is mild retrocardiac atelectasis. The lungs are otherwise clear. Pleural space: Unremarkable. No pleural effusion. No pneumothorax. Heart/Mediastinum: The cardiomediastinal silhouette is fairly stable in appearance. Bones/joints: Chronic bilateral rib fractures are again present. There is again surgical hardware in the cervical spine. Chronic left humeral fracture is again present. IMPRESSION: No evidence for acute pulmonary disease. Electronically signed by: Carl Fisher On 08/02/2020 14:03:42 PM
[2020-08-02 17:52] VITALS: BP 123/60
[2020-08-02 18:50] VITALS: O2SAT 94
[2020-08-02] MEDS: rOPINIRole 1MG TAB PO SCH (20:08)
[2020-08-02 22:00] VITALS: BP 128/60
[2020-08-02 23:26] VITALS: O2SAT 95
[2020-08-03] MEDS: SUCRALFATE SUSP 1GM/10ML UD PO SCH ×3 (00:08→17:08)
[2020-08-03] MEDS: methylPREDNISolone 125MG 2ML VIAL IV SCH ×4 (02:22→21:06)
[2020-08-03] MEDS: ONDANSETRON 4MG/2ML VIAL IV PRN (02:22)
[2020-08-03] MEDS: IPRATROPIUM 0.5MG/ALBUTEROL 2.5MG INH SOL UD 3ML (DUONEB) NEB SCH ×6 (02:25→22:56)
[2020-08-03 06:00] VITALS: BP 128/59
[2020-08-03 06:19] LABS: BASO % 0.1 % (0.0-1.0); HEMATOCRIT 29.9 % (36.0-47.0); HEMOGLOBIN 8.8 g/dl (12.0-15.5); LYMPH # 0.2 10^3/uL (1.5-5.0); LYMPH % 0.6 % (24.0-44.0); MEAN CORPUSCULAR HEMOGLOBIN 27.5 pg (27.0-33.0); MEAN CORPUSCULAR HGB CONC 29.4 g/dl (32.0-36.5); MEAN CORPUSCULAR VOLUME 93.4 fl (80.0-96.0); MONO % 3.8 % (0.0-5.0); NEUTROPHILS # 23.9 10^3/uL (1.5-8.5); NEUTROPHILS % 94.7 % (36.0-66.0); PLATELET COUNT, AUTOMATED 471 10^3/uL (150-450); WHITE BLOOD COUNT 25.2 10^3/uL (4.0-10.0)
[2020-08-03 06:38] LABS: CALCIUM LEVEL 8.4 MG/DL (8.8-10.2); CREATININE FOR GFR 1.01 MG/DL (0.55-1.30); GLOMERULAR FILTRATION RATE 56.7 (>39); POTASSIUM SERUM 3.9 MEQ/L (3.5-5.1)
[2020-08-03] MEDS: NICOTINE 14 MG/24 HR TRANSDERMAL TD SCH (08:24)
[2020-08-03] MEDS: LEVEMIR (INSULIN DETEMIR) 1 UNITS/0.01ML SC SCH (08:25)
[2020-08-03] MEDS: CEFDINIR 300 MG CAP (OMNICEF) PO SCH (08:26)
[2020-08-03] MEDS: FERROUS SULFATE 325MG TAB PO SCH (08:26)
[2020-08-03] MEDS: HumaLOG INSULIN (NovoLOG) PER UNIT SC SCH ×4 (08:26→20:41)
[2020-08-03] MEDS: guaiFENesin ER 600 MG TAB PO SCH ×2 (08:26→21:05)
[2020-08-03] MEDS: AMIODARONE 200 MG TAB (PACERONE) PO SCH (08:26)
[2020-08-03] MEDS: FAMOTIDINE 20 MG TAB PO SCH (08:27)
[2020-08-03] MEDS: CYANOCOBALAMIN 500 MCG TAB PO SCH (08:27)
[2020-08-03] MEDS: busPIRone 5 MG TAB PO SCH ×2 (08:28→21:05)
[2020-08-03] MEDS: MAGNESIUM OXIDE 400 MG TAB (MAG-OX) PO SCH ×2 (08:29→21:05)
[2020-08-03] MEDS: ASPIRIN 81 MG CHEW TABLET PO SCH (08:29)
[2020-08-03] MEDS: APIXABAN 5 MG TAB (ELIQUIS) PO SCH ×2 (08:29→21:05)
[2020-08-03] MEDS: FUROSEMIDE 40 MG TAB PO SCH (08:29)
[2020-08-03] MEDS: ACETAMINOPHEN 500 MG TAB PO SCH ×3 (08:29→21:07)
[2020-08-03] MEDS: FLUTICASONE PROP 0.05% NASAL SPRAY 16 GM (FLONASE) NARES SCH (08:30)
[2020-08-03] MEDS: traMADol 50 MG TAB PO PRN (08:32)
[2020-08-03] MEDS: NYSTATIN 500,000 U/5 ML SUSP UDC SS SCH ×4 (10:50→21:06)
[2020-08-03 14:00] VITALS: BP 110/47
[2020-08-03] MEDS: oxyCODONE 5MG TAB PO PRN (17:10)
--- NOTE | 2020-08-03 20:24 | IPNPDOC ---
Subjective Date Seen The patient was seen on 08/03/20. Subjective Chief Complaint/HPI Mrs. Solano is a 75 year old female with adrenal insufficiency, COPD, and arthritis here with with low back pain and dyspnea 2/2 COPD exacerbation. Today nausea has improved. She tolerated a liquid diet as well as a mechanical soft diet. Advance to regular diet. She still requiring oxygen. Denies fever/chills, chest pain, abdominal pain, dysuria, or diarrhea. Constitutional: Denies: Chills, Fever Pulmonary: Reports: Dyspnea Cardiovascular: Denies: Chest Pain Gastrointestinal: Denies: Nausea, Diarrhea Genitourinary: Denies: Dysuria Objective Physical Examination General Exam: Positive: Alert, Cooperative, Mild Distress Eye Exam: Positive: EOMI; Negative: Sclera icteric ENT Exam: Positive: Atraumatic, Mucous membr. moist/pink Neck Exam: Positive: Supple Chest Exam: Positive: Other (course breath sounds) Heart Exam: Positive: Rate Normal Abdomen Exam: Positive: Normal bowel sounds, Soft; Negative: Tenderness Extremity Exam: Positive: Swelling (bilateral pitting edema) Neuro Exam: Positive: Cranial Nerves 3-12 NL Psych Exam: Positive: Mental status NL, Mood NL Assessment /Plan Assessment Mrs. Solano is a 75 year old female with COPD, here with COPD exacerbation. She has wheezing, new productive cough, and desaturation with ambulation. We will get sputum culture, blood culture, and urinary legionella/pneumococcal antigen. We will start her on IV steroids with breathing treatments while awake. Ceftriaxone and azithromycin to empirically treat. She was also having back pain that suddenly started a few weeks ago located in the upper back. CT thoracic demonstrates an insufficiency fracture of T3. Will need pain control and follow up outpatient with a spine surgeon. Today nausea is better controlled. She's been able to advance her diet to regulars. Still requiring 5 L of oxygen. We'll titrate as tolerated Plan/VTE VTE Prophylaxis Ordered?: Yes Plan 1. COPD exacerbation - New productive cough, wheezing on auscultation, dyspnea. - Breathing treatments, ceftriaxone, and azithromycin - Went back up on steroids due to hypoxia and nausea - Pending blood cultures, Negative for 72 hours 2. Persistent nausea - May be secondary to rapid steroid taper vs gastritis from steroids - Clear liquid diet, liquid carafate, famotidine - PRN zofran 3. Atrial fibrillation - Rate controlled. Continue amiodarone and diltiazem. On apixaban for stroke ppx. 4. CHF - Appears to be compensated. Continue with furosemide 5. DM - Blood glucose appears to be elevated, but she was started on prednisone outpatient. Will hold metformin and put on sliding scale insulin. Continue Levem ir 12 units daily 6. Upper back pain - CT thoracic spine demonstrates T3 insufficiency fracture - Will need to follow up outpatient with spine surgeon - Pain control with PRN Percocet 7. Adrenal insufficiency - We will hold the hydrocortisone since she will be receiving IV steroids. Plan to taper back to home hydrocortisone dosages. 8. Anxiety - Continue buspirone 9. Debility - PT/OT ordered and recommendations appreciated 10 DVT ppx - On apixaban VS, I&O, 24H, Fishbone Vital Signs/I&O Vital Signs Date Time Temp Pulse Resp B/P (MAP) Pulse Ox O2 Delivery O2 Flow Rate FiO2 08/03/20 19:10 65 18 08/03/20 19:02 89 3.0 08/03/20 18:31 Nasal Cannula 08/03/20 14:00 97.4 110/47 (68) I&O- Last 24 Hours up to 6 AM 08/03/20 06:00 Intake Total 950 ml Output Total 300 ml Balance 650 ml Laboratory Data 24H LABS Laboratory Tests 2 08/03/20 05:55: Immature Granulocyte % (Auto) 0.8, Neutrophils (%) (Auto) 94.7H, Lymphocytes (%) (Auto) 0.6L, Monocytes (%) (Auto) 3.8, Eosinophils (%) (Auto) 0.0, Basophils (%) (Auto) 0.1, Neutrophils # (Auto) 23.9H, Lymphocytes # (Auto) 0.2L, Monocytes # (Auto) 1.0H, Eosinophils # (Auto) 0.0, Basophils # (Auto) 0.0, Nucleated Red Blood Cells % (auto) 0.0, Anion Gap 12, Glomerular Filtration Rate 56.7, Calcium Level 8.4L 08/03/20 12:00: Bedside Glucose (Misc Panel) 260H 08/03/20 12:59: Lab Scanned Report Miscellaneous Lab 08/03/20 16:52: Bedside Glucose (Misc Panel) 217H CBC/BMP Laboratory Tests 08/03/20 05:55 Microbiology Microbiology 07/29/20 Respiratory Virus Panel (PCR) ([facility]YA) - Final, Complete 07/29/20 Blood Culture - Final, Complete NO GROWTH AFTER 5 DAYS 07/29/20 Blood Culture - Final, Complete NO GROWTH AFTER 5 DAYS ALLEGRA WILL DO Aug 03, 2020 20:24
[2020-08-03 20:55] VITALS: BP 105/45
[2020-08-03] MEDS: rOPINIRole 1MG TAB PO SCH (21:05)
[2020-08-03 21:30] VITALS: BP 105/45
[2020-08-04] VITALS (12 sets, daily range): BP systolic 114–117; BP diastolic 47–69; O2SAT 79–100
[2020-08-04] MEDS: SUCRALFATE SUSP 1GM/10ML UD PO SCH ×3 (01:47→18:09)
[2020-08-04] MEDS: IPRATROPIUM 0.5MG/ALBUTEROL 2.5MG INH SOL UD 3ML (DUONEB) NEB SCH ×6 (03:00→23:06)
[2020-08-04] MEDS: methylPREDNISolone 125MG 2ML VIAL IV SCH ×3 (03:25→22:14)
[2020-08-04 06:40] LABS: BASO % 0.1 % (0.0-1.0); HEMATOCRIT 24.6 % (36.0-47.0); HEMOGLOBIN 7.2 g/dl (12.0-15.5); LYMPH # 0.1 10^3/uL (1.5-5.0); LYMPH % 0.4 % (24.0-44.0); MEAN CORPUSCULAR HEMOGLOBIN 27.6 pg (27.0-33.0); MEAN CORPUSCULAR HGB CONC 29.3 g/dl (32.0-36.5); MEAN CORPUSCULAR VOLUME 94.3 fl (80.0-96.0); MONO % 4.4 % (0.0-5.0); NEUTROPHILS # 21.5 10^3/uL (1.5-8.5); NEUTROPHILS % 94.5 % (36.0-66.0); PLATELET COUNT, AUTOMATED 387 10^3/uL (150-450); RED BLOOD COUNT 2.61 10^6/uL (4.00-5.40); WHITE BLOOD COUNT 22.7 10^3/uL (4.0-10.0)
--- NOTE | 2020-08-04 07:02 | ECHO ---
DATE OF PROCEDURE: 08/02/2020 Gender: Female Height: 154 cm Weight: 54 kg REFERRING PHYSICIAN: Howard Snowden DO INDICATION: Congestive heart failure (CHF), chronic obstructive pulmonary disease (COPD) MEASUREMENTS: IV 1.0 LV 2.6. LVPW 1.0 LA 3.2 Aorta 3.4 IVC 1.2 Mitral E wave velocity 58, A wave 86 E prime septal 3.5 E prime lateral 9.9 FINDINGS: The study is of acceptable technical quality. The patient is in sinus rhythm with frequent atrial ectopy. Left ventricle is normal size and has normal systolic function. Estimated ejection fraction (EF) is around 65 to 70%. Right ventricle does not appear enlarged and is normally contractile. Both atria appear grossly normal. Aortic valve has 3 cusps. It is sclerotic and there is minimal restriction of cusp mobility. There are also mild degenerative abnormalities of mitral valve with mitral annular calcifications. Tricuspid and pulmonic valves appear normal. Trivial pericardial effusion is noted. Inferior vena cava is normal size. Aortic root is normal. Aortic arch and abdominal aorta were not well visualized. Doppler interrogation reveals trace aortic insufficiency and mild stenosis with mean gradient 11 mmHg. There is no significant mitral valvular disease. There is trace tricuspid insufficiency. Calculated pulmonary artery pressure is within normal limits, but quality of TR jet was poor and this should not be considered overly reliable. Trace pulmonic insufficiency is also seen. Mitral inflow pattern and tissue Doppler imaging of mitral annulus revealed grade 1 diastolic dysfunction. CONCLUSIONS: 1. Study is of acceptable technical quality, the patient is in sinus rhythm with frequent atrial ectopy. 2. Normal LV size with preserved LV systolic function and grade 1 diastolic dysfunction. 3. Aortic sclerosis resulting in trace insufficiency and mild stenosis. 4. No additional significant valvular disease. 5. Likely normal central venous pressure and suggestive of normal pulmonary artery pressure. 6. Trace pericardial effusion. MTDD
[2020-08-04 07:07] LABS: CALCIUM LEVEL 7.6 MG/DL (8.8-10.2); CREATININE FOR GFR 1.09 MG/DL (0.55-1.30); POTASSIUM SERUM 3.9 MEQ/L (3.5-5.1)
[2020-08-04] MEDS: NICOTINE 14 MG/24 HR TRANSDERMAL TD SCH (09:50)
[2020-08-04] MEDS: FLUTICASONE PROP 0.05% NASAL SPRAY 16 GM (FLONASE) NARES SCH (09:50)
[2020-08-04] MEDS: NYSTATIN 500,000 U/5 ML SUSP UDC SS SCH ×4 (09:50→21:02)
[2020-08-04] MEDS: HumaLOG INSULIN (NovoLOG) PER UNIT SC SCH ×4 (09:51→20:29)
[2020-08-04] MEDS: FAMOTIDINE 20 MG TAB PO SCH (09:52)
[2020-08-04] MEDS: MAGNESIUM OXIDE 400 MG TAB (MAG-OX) PO SCH ×2 (09:52→21:01)
[2020-08-04] MEDS: busPIRone 5 MG TAB PO SCH ×2 (09:52→21:02)
[2020-08-04] MEDS: CYANOCOBALAMIN 500 MCG TAB PO SCH (09:52)
[2020-08-04] MEDS: LEVEMIR (INSULIN DETEMIR) 1 UNITS/0.01ML SC SCH (09:52)
[2020-08-04] MEDS: ACETAMINOPHEN 500 MG TAB PO SCH ×3 (09:53→21:01)
[2020-08-04] MEDS: FUROSEMIDE 40 MG TAB PO SCH (09:53)
[2020-08-04] MEDS: ASPIRIN 81 MG CHEW TABLET PO SCH (09:53)
[2020-08-04] MEDS: guaiFENesin ER 600 MG TAB PO SCH ×2 (09:53→21:02)
[2020-08-04] MEDS: APIXABAN 5 MG TAB (ELIQUIS) PO SCH ×2 (09:54→21:01)
[2020-08-04] MEDS: FERROUS SULFATE 325MG TAB PO SCH (09:54)
[2020-08-04 12:02] LABS: BASO % 0.1 % (0.0-1.0); HEMOGLOBIN 7.2 g/dl (12.0-15.5); LYMPH # 0.1 10^3/uL (1.5-5.0); LYMPH % 0.4 % (24.0-44.0); MEAN CORPUSCULAR HEMOGLOBIN 27.4 pg (27.0-33.0); MEAN CORPUSCULAR HGB CONC 28.8 g/dl (32.0-36.5); MEAN CORPUSCULAR VOLUME 95.1 fl (80.0-96.0); MONO # 1.1 10^3/uL (0.0-0.8); MONO % 4.6 % (0.0-5.0); NEUTROPHILS # 22.3 10^3/uL (1.5-8.5); NEUTROPHILS % 94.2 % (36.0-66.0); PLATELET COUNT, AUTOMATED 379 10^3/uL (150-450); RED BLOOD COUNT 2.63 10^6/uL (4.00-5.40); WHITE BLOOD COUNT 23.6 10^3/uL (4.0-10.0)
--- NOTE | 2020-08-04 15:44 | IPNPDOC ---
Subjective Date Seen The patient was seen on 08/04/20. Subjective Chief Complaint/HPI Mrs. Solano is a 75 year old female with adrenal insufficiency, COPD, and arthritis here with with low back pain and dyspnea 2/2 COPD exacerbation. Overnight, she had desaturations down to the 70s and required 6L of oxygen. She did not sleep well that night because people were in and out of her room. This morning, she was better on 2L, but then later in the day was back on 6L. was here and we had a long conversation. She has not been sleeping well in general which may be secondary to the steroids as well as activity. In addition, she has been feeling depressed since she has been here for so long. She doesn't feel well, but her nausea has improved. She was eating a solid diet. Otherwise, she says that she has paresthesias in the hands and wearing glove help with the paresthesias. She may have a component of Raynaud's which may present itself on pulse oximetry as desaturations. I told her it was okay to wear gloves in the ho spital. It is okay to wear gloves over the pulse ox on her finger. Otherwise denies fever, chills, chest pain, abdominal pain, dysuria, or diarrhea Constitutional: Denies: Chills, Fever Pulmonary: Reports: Dyspnea, Cough Cardiovascular: Denies: Chest Pain Gastrointestinal: Denies: Abdominal Pain, Diarrhea Genitourinary: Denies: Dysuria Objective Physical Examination General Exam: Positive: Alert, Cooperative, Mild Distress Eye Exam: Positive: EOMI; Negative: Sclera icteric ENT Exam: Positive: Atraumatic, Mucous membr. moist/pink Neck Exam: Positive: Supple Chest Exam: Positive: Other (course breath sounds) Heart Exam: Positive: Rate Normal Abdomen Exam: Positive: Normal bowel sounds, Soft; Negative: Tenderness Extremity Exam: Positive: Swelling (bilateral pitting edema) Neuro Exam: Positive: Cranial Nerves 3-12 NL Psych Exam: Positive: Mental status NL, Mood NL Assessment /Plan Assessment Mrs. Solano is a 75 year old female with COPD, here with COPD exacerbation. She has wheezing, new productive cough, and desaturation with ambulation. We will get sputum culture, blood culture, and urinary legionella/pneumococcal antigen. We will start her on IV steroids with breathing treatments while awake. Cephalosporin and azithromycin to empirically treat. She was also having back pain that suddenly started a few weeks ago located in the upper back. CT thoracic demonstrates an insufficiency fracture of T3. Will need pain control and follow up outpatient with a spine surgeon. Oxygen requirements fluctuate during the daytime. May need long-acting inhalers since she cannot get short acting while she is sleeping. Start tapering IV steroids as may have contracted it to her insomnia and hyperglycemia. We'll adjust her long-acting insulins. Wean oxygen as tolerated. She also is been having insomnia which may be secondary to steroids. Weaning steroids and added on trazodone. Plan/VTE VTE Prophylaxis Ordered?: Yes Plan 1. COPD exacerbation - New productive cough, wheezing on auscultation, dyspnea. - Breathing treatments, ceftriaxone, and azithromycin. Already completed antibiotic course - We'll start tapering IV steroids, start long-acting inhalers, and weaning off oxygen - Blood cultures negative for 5 days 2. Persistent nausea - May be secondary to rapid steroid taper vs gastritis from steroids Improved. 3. Atrial fibrillation - Rate controlled. Continue amiodarone and diltiazem. On apixaban for stroke ppx. 4. CHF - Appears to be compensated. Continue with furosemide Echocardiogram demonstrates preserved EF with a grade 1 diastolic dysfunction. 5. DM - Blood glucose appears to be elevated, but she was started on prednisone outpatient. Will hold metformin and put on sliding scale insulin. We'll increase her Levemir from 12 to 16 to control her blood glucose all she is on high-dose steroids. 6. Upper back pain - CT thoracic spine demonstrates T3 insufficiency fracture - Will need to follow up outpatient with spine surgeon - Pain control with PRN Percocet 7. Adrenal insufficiency - We will hold the hydrocortisone since she will be receiving IV steroids. Plan to taper back to home hydrocortisone dosages. 8. Anxiety - Continue buspirone 9. Debility - PT/OT ordered and recommendations appreciated 10. Insomnia Steroid induced insomnia While on the steroids will add trazodone as a sleep aid. 11. Paresthesias in hands Chronic, improved with wearing gloves May have a vascular component like Raynaud's. May cause fluctuations in the pulse ox read Told patient it was okay to wear gloves while in hospital 12 DVT ppx - On apixaban VS, I&O, 24H, Fishbone Vital Signs/I&O Vital Signs Date Time Temp Pulse Resp B/P (MAP) Pulse Ox O2 Delivery O2 Flow Rate FiO2 08/04/20 15:15 100 Nasal Cannula 3.0 08/04/20 14:00 99.6 79 17 114/51 (72) I&O- Last 24 Hours up to 6 AM 08/04/20 06:00 Intake Total 1290 ml Output Total 250 ml Balance 1040 ml Laboratory Data 24H LABS Laboratory Tests 2 08/03/20 16:52: Bedside Glucose (Misc Panel) 217H 08/03/20 20:21: Bedside Glucose (Misc Panel) 152H 08/04/20 06:13: Immature Granulocyte % (Auto) 0.6, Neutrophils (%) (Auto) 94.5H, Lymphocytes (%) (Auto) 0.4L, Monocytes (%) (Auto) 4.4, Eosinophils (%) (Auto) 0.0, Basophils (%) (Auto) 0.1, Neutrophils # (Auto) 21.5H, Lymphocytes # (Auto) 0.1L, Monocytes # (Auto) 1.0H, Eosinophils # (Auto) 0.0, Basophils # (Auto) 0.0, Nucleated Red Blood Cells % (auto) 0.0, Anion Gap 8, Glomerular Filtration Rate 52.0, Calcium Level 7.6L 08/04/20 11:24: Bedside Glucose (Misc Panel) 501*H 08/04/20 11:31: Bedside Glucose (Misc Panel) 412H 08/04/20 11:45: Immature Granulocyte % (Auto) 0.7, Neutrophils (%) (Auto) 94.2H, Lymphocytes (%) (Auto) 0.4L, Monocytes (%) (Auto) 4.6, Eosinophils (%) (Auto) 0.0, Basophils (%) (Auto) 0.1, Neutrophils # (Auto) 22.3H, Lymphocytes # (Auto) 0.1L, Monocytes # (Auto) 1.1H, Eosinophils # (Auto) 0.0, Basophils # (Auto) 0.0, Nucleated Red Blood Cells % (auto) 0.0 CBC/BMP Laboratory Tests 08/04/20 06:13 08/04/20 11:45 Microbiology Microbiology 07/29/20 Respiratory Virus Panel (PCR) ([facility]) - Final, Complete 07/29/20 Blood Culture - Final, Complete NO GROWTH AFTER 5 DAYS 07/29/20 Blood Culture - Final, Complete NO GROWTH AFTER 5 DAYS ALLEGRA WILL DO Aug 04, 2020 15:44
[2020-08-04] MEDS: SYMBICORT 160/4.5MCG INHALER 6GM INH SCH (17:52)
[2020-08-04] MEDS: oxyCODONE 5MG TAB PO PRN (18:11)
[2020-08-04] MEDS ORDERED: CEPACOL LOZENGE PO PRN (18:15)
[2020-08-04] MEDS: rOPINIRole 1MG TAB PO SCH (21:01)
[2020-08-04] MEDS: traZODone 50 MG TAB PO SCH (21:02)
[2020-08-05] VITALS (17 sets, daily range): BP systolic 92–140; BP diastolic 40–71
[2020-08-05] MEDS: SUCRALFATE SUSP 1GM/10ML UD PO SCH ×3 (00:38→18:55)
[2020-08-05] MEDS ORDERED: SODIUM CHLORIDE 0.9% 3ML NEB SOLUTION FOR INHALATION INH PRN (01:15)
--- NOTE | 2020-08-05 01:22 | REPVR ---
PROCEDURE INFORMATION: Exam: XR Chest, 1 View Exam date and time: 08/05/2020 1:11 AM Age: 75 years old Clinical indication: Shortness of breath; Additional info: SOB TECHNIQUE: Imaging protocol: XR of the chest Views: 1 view. COMPARISON: CR PORTABLE CHEST X-RAY 08/02/2020 1:43 PM FINDINGS: Lungs: No right lung infiltrate. Left lower lobe infiltrate. Pleural space: No right pleural effusion. Blunting of the left costophrenic angle. No pneumothorax. Heart/Mediastinum: Unremarkable. No cardiomegaly. Vasculature: Moderate calcified atherosclerotic disease. Diaphragm: Elevated left hemidiaphragm. Bones/joints: Status post cervical fusion. Chronic fracture of the left proximal humerus. Multiple chronic bilateral rib fractures. IMPRESSION: Left lower lobe infiltrate. Suspicious for pneumonia. Electronically signed by: Jade Hall On 08/05/2020 01:22:18 AM
[2020-08-05] MEDS ORDERED: MOXIFLOXACIN 400 MG TAB PO SCH (03:00)
[2020-08-05] MEDS: IPRATROPIUM 0.5MG/ALBUTEROL 2.5MG INH SOL UD 3ML (DUONEB) NEB SCH ×5 (03:25→20:00)
[2020-08-05 06:11] LABS: BASO % 0.1 % (0.0-1.0); HEMATOCRIT 24.5 % (36.0-47.0); HEMOGLOBIN 7.2 g/dl (12.0-15.5); LYMPH # 0.1 10^3/uL (1.5-5.0); LYMPH % 0.5 % (24.0-44.0); MEAN CORPUSCULAR HEMOGLOBIN 27.7 pg (27.0-33.0); MEAN CORPUSCULAR HGB CONC 29.4 g/dl (32.0-36.5); MEAN CORPUSCULAR VOLUME 94.2 fl (80.0-96.0); MONO # 1.2 10^3/uL (0.0-0.8); MONO % 5.2 % (0.0-5.0); NEUTROPHILS # 22.3 10^3/uL (1.5-8.5); NEUTROPHILS % 93.4 % (36.0-66.0); PLATELET COUNT, AUTOMATED 353 10^3/uL (150-450); WHITE BLOOD COUNT 23.9 10^3/uL (4.0-10.0)
[2020-08-05] MEDS: traMADol 50 MG TAB PO PRN (06:12)
[2020-08-05] MEDS: methylPREDNISolone 125MG 2ML VIAL IV SCH ×3 (06:13→22:20)
[2020-08-05 06:37] LABS: CALCIUM LEVEL 7.3 MG/DL (8.8-10.2); CREATININE FOR GFR 1.2 MG/DL (0.55-1.30); GLOMERULAR FILTRATION RATE 46.5 (>39); POTASSIUM SERUM 4.2 MEQ/L (3.5-5.1)
[2020-08-05] MEDS: SYMBICORT 160/4.5MCG INHALER 6GM INH SCH ×2 (07:17→20:23)
[2020-08-05] MEDS ORDERED: PIPERACILLIN/TAZOBACTAM SOD 4.5 GM in D5W MINI-BAG PLUS 50 ML IV SCH (07:30)
[2020-08-05] MEDS: NS 1,000 ML IV SCH ×2 (09:21→13:49)
[2020-08-05] MEDS: PIPERACILLIN/TAZOBACTAM SOD 3.375 GM in D5W MINI-BAG PLUS 50 ML IV SCH ×3 (09:21→21:18)
[2020-08-05] MEDS: HumaLOG INSULIN (NovoLOG) PER UNIT SC SCH ×4 (09:22→21:00)
[2020-08-05] MEDS: NYSTATIN 500,000 U/5 ML SUSP UDC SS SCH ×4 (09:23→21:00)
[2020-08-05] MEDS: LEVEMIR (INSULIN DETEMIR) 1 UNITS/0.01ML SC SCH (09:23)
[2020-08-05] MEDS: NICOTINE 14 MG/24 HR TRANSDERMAL TD SCH (09:23)
[2020-08-05] MEDS: busPIRone 5 MG TAB PO SCH ×2 (09:24→21:17)
[2020-08-05] MEDS: FUROSEMIDE 40 MG TAB PO SCH (09:24)
[2020-08-05] MEDS: ASPIRIN 81 MG CHEW TABLET PO SCH (09:24)
[2020-08-05] MEDS: APIXABAN 5 MG TAB (ELIQUIS) PO SCH ×2 (09:24→21:16)
[2020-08-05] MEDS: CYANOCOBALAMIN 500 MCG TAB PO SCH (09:24)
[2020-08-05] MEDS: FERROUS SULFATE 325MG TAB PO SCH (09:24)
[2020-08-05] MEDS: guaiFENesin ER 600 MG TAB PO SCH ×2 (09:24→21:16)
[2020-08-05] MEDS: MAGNESIUM OXIDE 400 MG TAB (MAG-OX) PO SCH ×2 (09:24→21:17)
[2020-08-05] MEDS: AMIODARONE 200 MG TAB (PACERONE) PO SCH (09:24)
[2020-08-05] MEDS: FAMOTIDINE 20 MG TAB PO SCH (09:24)
[2020-08-05] MEDS: ACETAMINOPHEN 500 MG TAB PO SCH ×3 (09:26→21:17)
[2020-08-05] MEDS: FLUTICASONE PROP 0.05% NASAL SPRAY 16 GM (FLONASE) NARES SCH (09:26)
[2020-08-05] MEDS: oxyCODONE 5MG TAB PO PRN (09:28)
[2020-08-05] MEDS ORDERED: VANCOMYCIN HCL 1,000 MG, VIAL MATE ADAPTER 1 EACH in D5W 250 ML IV ONE (11:00)
[2020-08-05 12:25] LABS: HEMATOCRIT 23.3 % (36.0-47.0); MEAN CORPUSCULAR HEMOGLOBIN 27.8 pg (27.0-33.0); MEAN CORPUSCULAR HGB CONC 29.2 g/dl (32.0-36.5); MEAN CORPUSCULAR VOLUME 95.1 fl (80.0-96.0); PLATELET COUNT, AUTOMATED 310 10^3/uL (150-450); RED BLOOD COUNT 2.45 10^6/uL (4.00-5.40)
[2020-08-05 12:36] LABS: HEMOGLOBIN 6.8 g/dl (12.0-15.5)
[2020-08-05 13:29] LABS: PERCENT SATURATION 56.5 % (13.2-45.0)
[2020-08-05 15:01] LABS: INR 1.45
[2020-08-05 15:02] LABS: PARTIAL THROMBOPLASTIN TIME 29.7 SECONDS (24.2-38.5)
[2020-08-05] MEDS ORDERED: LIDOCAINE 1% MDV 20ML VIAL As Ordered ONE ×2 (16:44→17:33)
[2020-08-05] MEDS ORDERED: MIDAZOLAM INJ 2MG/2ML VIAL (J2250 PER 1MG) As Ordered ONE ×2 (18:03→18:04)
[2020-08-05] MEDS ORDERED: flumazeniL 0.5 MG/5 ML VIAL As Ordered ONE (18:04)
[2020-08-05] MEDS ORDERED: SODIUM CHLORIDE 0.9% INJ 10 ML SYR IV PRN (18:30)
--- NOTE | 2020-08-05 19:07 | REPVR ---
PROCEDURE INFORMATION: Exam: XR Chest, 1 View Exam date and time: 08/05/2020 6:14 PM Age: 75 years old Clinical indication: S/P central line placement TECHNIQUE: Imaging protocol: XR of the chest Views: 1 view. COMPARISON: 1. CR PORTABLE CHEST X-RAY 08/05/2020 12:[address] Chest without contrast 08/28/2019 12:48:44 PM FINDINGS: Tubes, catheters and devices: There is a left subclavian central venous line terminating in superior vena cava. Lungs: There is a persistent left basilar airspace opacity, which may represent atelectasis or consolidation. Pleural space: Unremarkable. No pleural effusion or pneumothorax is identified. Heart/Mediastinum: Unremarkable. No cardiomegaly. Vasculature: There are atherosclerotic calcifications of the aortic arch. Diaphragm: The left hemidiaphragm is mildly elevated, which is similar in appearance compared to the prior chest x-ray on 08/05/2020 12:47 AM. Bones/joints: There are several old healed bilateral rib fractures. There is a chronic healed left proximal humerus fracture deformity. IMPRESSION: 1. Left subclavian central venous line terminating in the superior vena cava. No pneumothorax. 2. Persistent left basilar airspace opacity, which may represent atelectasis or consolidation (e.g.: aspiration pneumonia or pneumonia). Electronically signed by: Jose Wong On 08/05/2020 19:06:17 PM
[2020-08-05] MEDS: traZODone 50 MG TAB PO SCH (21:00)
[2020-08-05] MEDS: rOPINIRole 1MG TAB PO SCH (21:16)
[2020-08-05] MEDS: DOCUSATE SODIUM 100 MG CAP PO SCH (21:16)
[2020-08-05] MEDS: SODIUM CHLORIDE 0.9% INJ 10 ML SYR IV SCH (21:19)
--- NOTE | 2020-08-05 22:15 | IPNPDOC ---
Subjective Date Seen The patient was seen on 08/05/20. Subjective Chief Complaint/HPI Mrs. Solano is a 75 year old female with adrenal insufficiency, COPD, and arthritis here with with low back pain and dyspnea 2/2 COPD exacerbation. Overnight, they obtained a CXR which demonstrated a left lower lobe pneumonia. Also the hemoglobin was gradually decreasing. On admission patient had been on ceftriaxone and transitioned to Cefdinir for a total of a 5 day treatment course. Azithromycin was also given for 5 days. She did have some nausea and vomiting. New pneumonia despite being on antibiotics, concern for [id number] organisms. Start patient on vancomycin and Zosyn for broad- spectrum coverage. In addition blood count continued to drop. She had fatigue and lightheadedness. Last hemoglobin was 6.8. Discussed with her the risk and benefits of blood transfusion. She is agreeable to having blood transfusion. Unfortunately she does not have peripheral axis. Ordered a PICC line, but they weren't able to place. Spoke with Dr. Finley, who was able to put in a central line. Discussed the new pneumonia and acute anemia with the Constitutional: Reports: Fatigue ENT: Denies: Head Aches Pulmonary: Reports: Dyspnea, Cough Cardiovascular: Reports: Lt Headedness Gastrointestinal: Denies: Abdominal Pain Genitourinary: Denies: Dysuria Objective Physical Examination General Exam: Positive: Alert, Cooperative, Mild Distress Eye Exam: Positive: EOMI; Negative: Sclera icteric ENT Exam: Positive: Atraumatic, Mucous membr. moist/pink Neck Exam: Positive: Supple Chest Exam: Positive: Other (course breath sounds) Heart Exam: Positive: Rate Normal Abdomen Exam: Positive: Normal bowel sounds, Soft; Negative: Tenderness Extremity Exam: Positive: Swelling (bilateral pitting edema) Neuro Exam: Positive: Cranial Nerves 3-12 NL Psych Exam: Positive: Mental status NL, Mood NL Assessment /Plan Assessment Mrs. Solano is a 75 year old female with COPD, here with COPD exacerbation. She has wheezing, new productive cough, and desaturation with ambulation. During her hospitalization, she's had 5 days of antibiotics. When she lost her initial IV line, we switched from IV steroids to oral steroids. That change might have been too quick and she developed nausea and vomiting. He went back up on the IV s teroids. Then she developed a left lower lobe pneumonia. May be secondary to aspiration while vomiting. There is a concern for drug resistant organisms since she was on antibiotics for 5 days. Started her on Vanco and Zosyn for broad- spectrum coverage. In addition she developed anemia. We'll do the anemia workup. She agreed to blood transfusions. They were not able to get a peripheral line or PICC line in her. Dr. Finley was consulted for a central line. Plan/VTE VTE Prophylaxis Ordered?: Yes Plan 1. COPD exacerbation - New productive cough, wheezing on auscultation, dyspnea. - Breathing treatments, ceftriaxone, and azithromycin. Complete a 5 day course. - We are tapering IV steroids and continuing the inhalers 2. Left lower lobe pneumonia Seen on chest x-ray from 08/05/2020 Was not on previous chest x-rays. She was on antibiotics for 5 days prior May be secondary to aspiration from emesis Concern for multidrug resistant organisms. We'll place patient on vancomycin and Zosyn. 3. Persistent nausea - May be secondary to rapid steroid taper vs gastritis from steroids Improved. Tolerating diet 4. Acute Anemia - Transfusing 2u pRBC - Trend CBC - Ordered fecal occult 5. Atrial fibrillation - Rate controlled. Continue amiodarone and diltiazem. AC held due to anemia 6. CHF - Appears to be compensated. Holding Lasix due to PNA Echocardiogram demonstrates preserved EF with a grade 1 diastolic dysfunction. 7. DM - Blood glucose appears to be elevated, but she was started on prednisone outpatient. Will hold metformin and put on sliding scale insulin. Continue Levemir 16 to control her blood glucose while she is on high-dose steroids. 8. Upper back pain - CT thoracic spine demonstrates T3 insufficiency fracture - Will need to follow up outpatient with spine surgeon - Pain control with scheduled Tylenol and PRN tramadol and oxyIR 9. Adrenal insufficiency - We will hold the hydrocortisone since she will be receiving IV steroids. Plan to taper back to home hydrocortisone dosages. 10. Anxiety - Continue buspirone 11. Debility - PT/OT ordered and recommendations appreciated 12. Insomnia Steroid induced insomnia While on the steroids will add trazodone as a sleep aid. 13. Paresthesias in hands Chronic, improved with wearing gloves May have a vascular component like Raynaud's. May cause fluctuations in the pulse ox read Told patient it was okay to wear gloves while in hospital 14 DVT ppx - AC held due to acute anemia. SCD and TEDs VS, I&O, 24H, Fishbone Vital Signs/I&O Vital Signs Date Time Temp Pulse Resp B/P (MAP) Pulse Ox O2 Delivery O2 Flow Rate FiO2 08/05/20 21:15 70 116/57 08/05/20 21:07 98.7 18 99 Nasal Cannula 2.0 I&O- Last 24 Hours up to 6 AM 08/05/20 06:00 Intake Total 570 ml Output Total 0 ml Balance 570 ml Laboratory Data 24H LABS Laboratory Tests 2 08/05/20 05:39: Immature Granulocyte % (Auto) 0.8, Neutrophils (%) (Auto) 93.4H, Lymphocytes (%) (Auto) 0.5L, Monocytes (%) (Auto) 5.2H, Eosinophils (%) (Auto) 0.0, Basophils (%) (Auto) 0.1, Neutrophils # (Auto) 22.3H, Lymphocytes # (Auto) 0.1L, Monocytes # (Auto) 1.2H, Eosinophils # (Auto) 0.0, Basophils # (Auto) 0.0, Nucleated Red Blood Cells % (auto) 0.1H, Anion Gap 6L, Glomerular Filtration Rate 46.5, Calcium Level 7.3L, Iron Level 126, Total Iron Binding Capacity 223L, Transferrin % Saturation 56.5H, Ferritin 40 08/05/20 07:54: Methicillin-Resist S.aureus DNA PCR DETECTEDA 08/05/20 11:27: Bedside Glucose (Misc Panel) 409H 08/05/20 11:53: Nucleated Red Blood Cells % (auto) 0.0, Reticulocyte # (auto) 100.5H, Percent Reticulocyte Count 4.0H, Reticulocyte Hemoglobin Equivalent 29.8 08/05/20 13:47: Prothrombin Time 18.0H, Prothromb Time International Ratio 1.45, Activated Partial Thromboplast Time 29.7 08/05/20 16:26: Bedside Glucose (Misc Panel) 174H 08/05/20 21:44: Bedside Glucose (Misc Panel) 88 CBC/BMP Laboratory Tests 08/05/20 05:39 08/05/20 11:53 Microbiology Microbiology 08/05/20 Blood Culture, Received Pending 07/29/20 Respiratory Virus Panel (PCR) (KENYA) - Final, Complete 07/29/20 Blood Culture - Final, Complete NO GROWTH AFTER 5 DAYS 07/29/20 Blood Culture - Final, Complete NO GROWTH AFTER 5 DAYS ALLEGRA WILL DO Aug 05, 2020 22:07
[2020-08-06] VITALS: BP 127/57
[2020-08-06] MEDS: IPRATROPIUM 0.5MG/ALBUTEROL 2.5MG INH SOL UD 3ML (DUONEB) NEB SCH ×7 (00:01→23:44)
[2020-08-06 00:39] LABS: HEMATOCRIT 27.1 % (36.0-47.0); HEMOGLOBIN 8.6 g/dl (12.0-15.5); MEAN CORPUSCULAR HEMOGLOBIN 29.4 pg (27.0-33.0); MEAN CORPUSCULAR HGB CONC 31.7 g/dl (32.0-36.5); MEAN CORPUSCULAR VOLUME 92.5 fl (80.0-96.0); RED BLOOD COUNT 2.93 10^6/uL (4.00-5.40); WHITE BLOOD COUNT 17.8 10^3/uL (4.0-10.0)
[2020-08-06 00:47] LABS: PLATELET COUNT, AUTOMATED 201 10^3/uL (150-450)
[2020-08-06] MEDS: SUCRALFATE SUSP 1GM/10ML UD PO SCH ×3 (01:52→16:58)
[2020-08-06] MEDS: NS 1,000 ML IV SCH ×3 (01:53→21:48)
[2020-08-06] MEDS: PIPERACILLIN/TAZOBACTAM SOD 3.375 GM in D5W MINI-BAG PLUS 50 ML IV SCH ×4 (03:46→21:47)
[2020-08-06] MEDS: traMADol 50 MG TAB PO PRN (03:47)
[2020-08-06 04:00] VITALS: BP 142/68
[2020-08-06 04:40] LABS: HEMATOCRIT 30.6 % (36.0-47.0); HEMOGLOBIN 9.9 g/dl (12.0-15.5); MEAN CORPUSCULAR HEMOGLOBIN 29.6 pg (27.0-33.0); MEAN CORPUSCULAR HGB CONC 32.4 g/dl (32.0-36.5); MEAN CORPUSCULAR VOLUME 91.3 fl (80.0-96.0); PLATELET COUNT, AUTOMATED 238 10^3/uL (150-450); RED BLOOD COUNT 3.35 10^6/uL (4.00-5.40); WHITE BLOOD COUNT 21.8 10^3/uL (4.0-10.0)
[2020-08-06 04:56] LABS: CALCIUM LEVEL 6.8 MG/DL (8.8-10.2); CREATININE FOR GFR 1.27 MG/DL (0.55-1.30); GLOMERULAR FILTRATION RATE 43.6 (>39); POTASSIUM SERUM 4.2 MEQ/L (3.5-5.1)
[2020-08-06] MEDS: SODIUM CHLORIDE 0.9% INJ 10 ML SYR IV SCH ×3 (06:23→21:47)
[2020-08-06] MEDS: methylPREDNISolone 125MG 2ML VIAL IV SCH ×2 (06:24→17:59)
[2020-08-06] MEDS: ONDANSETRON 4MG/2ML VIAL IV PRN (06:24)
[2020-08-06] MEDS: SYMBICORT 160/4.5MCG INHALER 6GM INH SCH ×2 (07:08→19:46)
[2020-08-06 08:00] VITALS: BP 133/63
[2020-08-06] MEDS: busPIRone 5 MG TAB PO SCH ×2 (08:11→21:48)
[2020-08-06] MEDS: ASPIRIN 81 MG CHEW TABLET PO SCH (08:11)
[2020-08-06] MEDS: NYSTATIN 500,000 U/5 ML SUSP UDC SS SCH ×4 (08:11→21:48)
[2020-08-06] MEDS: guaiFENesin ER 600 MG TAB PO SCH ×2 (08:13→21:48)
[2020-08-06] MEDS: CYANOCOBALAMIN 500 MCG TAB PO SCH (08:13)
[2020-08-06] MEDS: DOCUSATE SODIUM 100 MG CAP PO SCH ×2 (08:13→21:48)
[2020-08-06] MEDS: MAGNESIUM OXIDE 400 MG TAB (MAG-OX) PO SCH ×2 (08:13→21:48)
[2020-08-06] MEDS: FERROUS SULFATE 325MG TAB PO SCH (08:13)
[2020-08-06] MEDS: FAMOTIDINE 20 MG TAB PO SCH (08:13)
[2020-08-06] MEDS: ACETAMINOPHEN 500 MG TAB PO SCH ×3 (08:14→21:49)
[2020-08-06] MEDS: HumaLOG INSULIN (NovoLOG) PER UNIT SC SCH ×4 (08:15→21:00)
[2020-08-06] MEDS: LEVEMIR (INSULIN DETEMIR) 1 UNITS/0.01ML SC SCH (08:16)
[2020-08-06] MEDS: VANCOMYCIN HCL 750 MG, VIAL MATE ADAPTER 1 EACH in D5W 250 ML IV SCH (08:17)
[2020-08-06] MEDS: FLUTICASONE PROP 0.05% NASAL SPRAY 16 GM (FLONASE) NARES SCH (08:19)
[2020-08-06] MEDS: NICOTINE 14 MG/24 HR TRANSDERMAL TD SCH (08:36)
--- NOTE | 2020-08-06 09:25 | ECGEPIP ---
[facility] Test Date: 2020-08-04 Pat Name: MARCELINO FOWLER Department: Room: [place] [address] Gender: Female Diversional Therapist'S Assistant: ERICKA : 1945 Requested By: ALLEGRA Mccall Order Number: [id number] Reading MD: Rolo Ponce Measurements Intervals [place] Rate: 78 P: 84 NM: 163 QRS: 41 QRSD: 92 T: 155 QT: 387 QTc: 442 Interpretive Statements Normal sinus rhythm with PACs Delayed anterior R wave progression Nonspecific ST-T wave abnormalities No significant change when compared to prior tracing of 07/29/2020 Electronically Signed on 08-06-2020 9:24:41 EDT by Rolo Ponce
[2020-08-06] MEDS ORDERED: IPRATROPIUM 0.5MG/ALBUTEROL 2.5MG INH SOL UD 3ML (DUONEB) NEB PRN (11:45)
[2020-08-06] MEDS: oxyCODONE 5MG TAB PO PRN (11:46)
[2020-08-06 12:00] VITALS: BP 118/57
[2020-08-06 12:07] LABS: HEMATOCRIT 30.5 % (36.0-47.0); HEMOGLOBIN 9.8 g/dl (12.0-15.5); MEAN CORPUSCULAR HEMOGLOBIN 29.5 pg (27.0-33.0); MEAN CORPUSCULAR HGB CONC 32.1 g/dl (32.0-36.5); MEAN CORPUSCULAR VOLUME 91.9 fl (80.0-96.0); PLATELET COUNT, AUTOMATED 231 10^3/uL (150-450); RED BLOOD COUNT 3.32 10^6/uL (4.00-5.40); WHITE BLOOD COUNT 20.6 10^3/uL (4.0-10.0)
[2020-08-06] MEDS ORDERED: MIRALAX *UNIT DOSE* 17GM PACKET PO PRN (12:15)
[2020-08-06 16:00] VITALS: BP 130/60
--- NOTE | 2020-08-06 19:59 | IPNPDOC ---
Subjective Date Seen The patient was seen on 08/06/20. Subjective Chief Complaint/HPI Mrs. Solano is a 75 year old female with adrenal insufficiency, COPD, and arthritis here with with low back pain and dyspnea 2/2 COPD exacerbation. This morning it looked she had more energy. She still having dyspnea despite saturating well at room air. Otherwise denies any fever or chills, lightheadedness, chest pain, abdominal pain, or dysuria. Constitutional: Denies: Chills, Fever Pulmonary: Reports: Dyspnea Cardiovascular: Denies: Chest Pain Gastrointestinal: Denies: Abdominal Pain Genitourinary: Denies: Dysuria Objective Physical Examination General Exam: Positive: Alert, Cooperative, Mild Distress Eye Exam: Positive: EOMI; Negative: Sclera icteric ENT Exam: Positive: Atraumatic, Mucous membr. moist/pink Neck Exam: Positive: Supple Chest Exam: Positive: Clear to auscultation Heart Exam: Positive: Rate Normal Abdomen Exam: Positive: Normal bowel sounds, Soft; Negative: Tenderness Extremity Exam: Positive: Swelling (bilateral pitting edema) Neuro Exam: Positive: Cranial Nerves 3-12 NL Psych Exam: Positive: Mental status NL, Mood NL Assessment /Plan Assessment Mrs. Solano is a 75 year old female with COPD, here with COPD exacerbation. She has wheezing, new productive cough, and desaturation with ambulation. During her hospitalization, she's had 5 days of antibiotics. When she lost her initial IV line, we switched from IV steroids to oral steroids. That change might have been too quick and she developed nausea and vomiting. He went back up on the IV steroids. Then she developed a left lower lobe pneumonia. May be secondary to aspiration while vomiting. There is a concern for drug resistant organisms since she was on antibiotics for 5 days. Started her on Vanco and Zosyn for broad- spectrum coverage. In addition she developed acute anemia, which she was transfused. She responded appropriately. Anticoagulation was held. Plan/VTE VTE Prophylaxis Ordered?: Yes Plan 1. COPD exacerbation - New productive cough, wheezing on auscultation, dyspnea. - Breathing treatments, ceftriaxone, and azithromycin. Complete a 5 day course. - We are tapering IV steroids and continuing the inhalers 2. Left lower lobe pneumonia Seen on chest x-ray from 08/05/2020 Was not on previous chest x-rays. She was on antibiotics for 5 days prior May be secondary to aspiration from emesis Concern for multidrug resistant organisms. We'll place patient on vancomycin and Zosyn. 3. Persistent nausea - May be secondary to rapid steroid taper vs gastritis from steroids Improved. Tolerating diet 4. Acute Anemia - Transfusing 2u pRBC, responded appropriately Continue trending CBC 5. Atrial fibrillation - Rate controlled. Continue amiodarone and diltiazem. AC held due to anemia 6. Diastolic CHF - Appears to be compensated. Holding Lasix due to PNA Echocardiogram demonstrates preserved EF with a grade 1 diastolic dysfunction. 7. DM - Blood glucose appears to be elevated, but she was started on prednisone outpatient. Will hold metformin and put on sliding scale insulin. Continue Levemir 16 to control her blood glucose while she is on high-dose steroids. 8. Upper back pain - CT thoracic spine demonstrates T3 insufficiency fracture - Will need to follow up outpatient with spine surgeon - Pain control with scheduled Tylenol and PRN tramadol and oxyIR 9. Adrenal insufficiency - We will hold the hydrocortisone since she will be receiving IV steroids. Plan to taper back to home hydrocortisone dosages. 10. Anxiety - Continue buspirone 11. Debility - PT/OT ordered and recommendations appreciated 12. Insomnia Steroid induced insomnia While on the steroids will add trazodone as a sleep aid. 13. Paresthesias in hands Chronic, improved with wearing gloves May have a vascular component like Raynaud's. May cause fluctuations in the pulse ox read Told patient it was okay to wear gloves while in hospital 14 DVT ppx - AC held due to acute anemia. SCD and TEDs VS, I&O, 24H, Fishbone Vital Signs/I&O Vital Signs Date Time Temp Pulse Resp B/P (MAP) Pulse Ox O2 Delivery O2 Flow Rate FiO2 08/06/20 16:00 0.5 08/06/20 16:00 97.9 83 18 130/60 (83) 91 Nasal Cannula I&O- Last 24 Hours up to 6 AM 08/06/20 06:00 Intake Total 1093 ml Output Total 200 ml Balance 893 ml Laboratory Data 24H LABS Laboratory Tests 2 08/05/20 21:44: Bedside Glucose (Misc Panel) 88 08/06/20 00:07: Nucleated Red Blood Cells % (auto) 0.2H 08/06/20 04:18: Nucleated Red Blood Cells % (auto) 0.1H, Anion Gap 5L, Glomerular Filtration Rate 43.6, Calcium Level 6.8L 08/06/20 11:45: Nucleated Red Blood Cells % (auto) 0.2H 08/06/20 11:57: Bedside Glucose (Misc Panel) 291H 08/06/20 16:18: Bedside Glucose (Misc Panel) 226H CBC/BMP Laboratory Tests 08/06/20 00:07 08/06/20 04:18 08/06/20 11:45 Microbiology Microbiology 08/05/20 Blood Culture - Preliminary, Resulted No growth after 24 hours . All specim... 07/29/20 Respiratory Virus Panel (PCR) ([facility]) - Final, Complete 07/29/20 Blood Culture - Final, Complete NO GROWTH AFTER 5 DAYS 07/29/20 Blood Culture - Final, Complete NO GROWTH AFTER 5 DAYS ALLEGRA WILL DO Aug 06, 2020 19:59
[2020-08-06 20:00] VITALS: BP 111/59
[2020-08-06] MEDS: traZODone 50 MG TAB PO SCH (21:00)
[2020-08-06] MEDS: rOPINIRole 1MG TAB PO SCH (21:49)
[2020-08-07] VITALS (13 sets, daily range): BP systolic 106–141; BP diastolic 55–69; O2SAT 97–100
[2020-08-07] MEDS: SUCRALFATE SUSP 1GM/10ML UD PO SCH ×3 (00:09→16:02)
[2020-08-07] MEDS: PIPERACILLIN/TAZOBACTAM SOD 3.375 GM in D5W MINI-BAG PLUS 50 ML IV SCH ×4 (03:05→21:05)
[2020-08-07] MEDS: traMADol 50 MG TAB PO PRN (03:06)
[2020-08-07] MEDS: IPRATROPIUM 0.5MG/ALBUTEROL 2.5MG INH SOL UD 3ML (DUONEB) NEB SCH ×6 (04:11→23:06)
[2020-08-07] MEDS: methylPREDNISolone 125MG 2ML VIAL IV SCH ×2 (06:47→21:06)
[2020-08-07] MEDS: SODIUM CHLORIDE 0.9% INJ 10 ML SYR IV SCH ×3 (06:47→21:07)
[2020-08-07] MEDS ORDERED: LevoFLOXacin IV 750 MG in IV 1 EA IV SCH (07:30)
[2020-08-07 07:31] LABS: HEMOGLOBIN 9.2 g/dl (12.0-15.5); MEAN CORPUSCULAR HEMOGLOBIN 29.5 pg (27.0-33.0); MEAN CORPUSCULAR HGB CONC 31.7 g/dl (32.0-36.5); MEAN CORPUSCULAR VOLUME 92.9 fl (80.0-96.0); PLATELET COUNT, AUTOMATED 223 10^3/uL (150-450); RED BLOOD COUNT 3.12 10^6/uL (4.00-5.40)
[2020-08-07] MEDS: SYMBICORT 160/4.5MCG INHALER 6GM INH SCH ×2 (07:31→19:29)
[2020-08-07 07:46] LABS: CALCIUM LEVEL 6.8 MG/DL (8.8-10.2); CREATININE FOR GFR 1.58 MG/DL (0.55-1.30); GLOMERULAR FILTRATION RATE 33.9 (>39); POTASSIUM SERUM 3.8 MEQ/L (3.5-5.1)
[2020-08-07] MEDS: ONDANSETRON 4MG/2ML VIAL IV PRN ×2 (08:06→12:08)
[2020-08-07] MEDS: CYANOCOBALAMIN 500 MCG TAB PO SCH (08:08)
[2020-08-07] MEDS: ASPIRIN 81 MG CHEW TABLET PO SCH (08:08)
[2020-08-07] MEDS: MAGNESIUM OXIDE 400 MG TAB (MAG-OX) PO SCH (08:08)
[2020-08-07] MEDS: FAMOTIDINE 20 MG TAB PO SCH (08:08)
[2020-08-07] MEDS: busPIRone 5 MG TAB PO SCH (08:08)
[2020-08-07] MEDS: ACETAMINOPHEN 500 MG TAB PO SCH ×2 (08:09→16:02)
[2020-08-07] MEDS: FERROUS SULFATE 325MG TAB PO SCH (08:09)
[2020-08-07] MEDS: DOCUSATE SODIUM 100 MG CAP PO SCH (08:09)
[2020-08-07] MEDS: guaiFENesin ER 600 MG TAB PO SCH (08:09)
[2020-08-07] MEDS: NYSTATIN 500,000 U/5 ML SUSP UDC SS SCH ×3 (08:11→16:01)
[2020-08-07] MEDS: LEVEMIR (INSULIN DETEMIR) 1 UNITS/0.01ML SC SCH (08:12)
[2020-08-07] MEDS: VANCOMYCIN HCL 750 MG, VIAL MATE ADAPTER 1 EACH in D5W 250 ML IV SCH (08:12)
[2020-08-07] MEDS: HumaLOG INSULIN (NovoLOG) PER UNIT SC SCH ×4 (08:12→18:00)
[2020-08-07] MEDS: FLUTICASONE PROP 0.05% NASAL SPRAY 16 GM (FLONASE) NARES SCH (08:44)
[2020-08-07] MEDS: NICOTINE 14 MG/24 HR TRANSDERMAL TD SCH (08:45)
[2020-08-07] MEDS: SENNA 8.6 MG TAB (SENOKOT) PO SCH ×2 (09:00→09:37)
[2020-08-07] MEDS ORDERED: MIRALAX *UNIT DOSE* 17GM PACKET PO SCH (09:00)
[2020-08-07] MEDS ORDERED: LORazepam 0.5 MG TAB PO ONE (14:45)
[2020-08-07] MEDS: DICLOFENAC EPOLAMINE 1.3 % PATCH TOP SCH (16:01)
--- NOTE | 2020-08-07 16:43 | REPVR ---
PROCEDURE INFORMATION: Exam: CT Abdomen And Pelvis Without Contrast Exam date and time: 08/07/2020 3:28 PM Age: 75 years old Clinical indication: Abdominal pain; Generalized; Additional info: N/v/abd discomfort, no bm. Concern for obstruction TECHNIQUE: Imaging protocol: Computed tomography of the abdomen and pelvis without contrast. Radiation optimization: All CT scans at this facility use at least one of these dose optimization techniques: automated exposure control; mA and/or kV adjustment per patient size (includes targeted exams where dose is matched to clinical indication); or iterative reconstruction. COMPARISON: CT ABD/PEL W/IV CONTRAST ONLY 06/08/2018 6:39 AM FINDINGS: Limitations: Image quality is degraded by streak artifact caused by inclusion of the patient's arms within the scan plane. Without intravenous contrast, there is reduced sensitivity for detection of infectious, inflammatory, neoplastic and visceral abnormalities. Lungs: The right lung base is clear. Discoid atelectasis and/or scarring in the left lower lobe adjacent to the diaphragm is probably due to diaphragmatic elevation caused by the distended bowel. Heart: Heart size is normal. Liver: Normal. No mass. Gallbladder and bile ducts: There is a 12 mm calcified gallstone in the gallbladder. There is no gallbladder wall thickening or pericholecystic edema to suggest acute cholecystitis. Pancreas: Normal. No ductal dilation. Spleen: Normal. No splenomegaly. Adrenals: Normal. No mass. Kidneys and ureters: Mild right hydronephrosis and hydroureter are probably due to vesicoureteral reflux from the distended urinary bladder. The left kidney and ureter are unremarkable. Stomach and bowel: Proximal loops of small bowel are fluid-filled and markedly distended up to 5.1 cm. Distal small bowel is decreased in caliber. The transition point is in the right lower quadrant (axial image 102, coronal image 26 and sagittal image 36). There is fecalization of small bowel contents in the distal obstructed loops. Numerous colonic diverticula in the descending and sigmoid colon without evidence of diverticulitis. The colon is otherwise unremarkable. No acute colonic distention or inflammation. Stomach is distended with and filled with fluid, food and gas. Appendix: No evidence of appendicitis. Intraperitoneal space: Unremarkable. No free air. No significant fluid collection. Vasculature: There is severe calcific atherosclerosis of the abdominal aorta and iliac arteries. There is no aneurysm. Calcified plaque causes at least a severe stenosis of the left common iliac artery. Occlusion cannot be excluded. Lymph nodes: Unremarkable. No enlarged lymph nodes. Urinary bladder: The bladder is distended, approximately 950 mL. No bladder mass. Reproductive: Hysterectomy. Bones/joints: Multiple bilateral healed lower rib fractures. Soft tissues: Unremarkable. IMPRESSION: 1. Proximal loops of small bowel are fluid-filled and markedly distended up to 5.1 cm. Distal small bowel is decreased in caliber. The transition point is in the right lower quadrant (axial image 102, coronal image 26 and sagittal image 36). Surgical consultation is recommended. 2. Colonic diverticulosis without evidence of diverticulitis. 3. Cholelithiasis without evidence of cholecystitis. 4. Discoid atelectasis and/or scarring in the left lower lobe adjacent to the diaphragm is probably due to diaphragmatic elevation caused by the distended bowel. 5. Multiple bilateral healed lower rib fractures. 6. Hysterectomy. 7. The bladder is distended, approximately 950 mL. Mild right hydronephrosis is probably due to vesicoureteral reflux. 8. Calcified plaque causes at least a severe stenosis of the left common iliac artery. Occlusion cannot be excluded. Correlate clinically for evidence of left lower extremity arterial insufficiency. CONFERENCE CALL: The findings were verbally communicated via telephone conference with Dr. Snowden at 4:34 PM EDT on 08/07/2020. The findings were acknowledged and understood. Electronically signed by: Erik Marin On 08/07/2020 16:42:35 PM
[2020-08-07] MEDS: NS 1,000 ML IV SCH (16:58)
--- NOTE | 2020-08-07 19:29 | IPNPDOC ---
Subjective Date Seen The patient was seen on 08/07/20. Subjective Chief Complaint/HPI Mrs. Solano is a 75 year old female with adrenal insufficiency, COPD, and arthritis here with with low back pain and dyspnea 2/2 COPD exacerbation. This morning she was not feeling well. This afternoon, she was complaining of nausea. Denies abdominal pain and did not have abdominal tenderness. Despite colace, miralax, and senna, she was not having bowel movements. Ordered a CT of the abd/pelvis to evaluate. Demonstrates high grade right lower quadrant SBO with 900mL of fluid in her bladder. Spoke with general surgery, Dr. Blanco, about the SBO. Recommended NGT and checking the lactic acid. Possibly secondary to adhesions from hysterectomy. Spoke with both the and daughter about it. They told me this was her 3rd time. NGT was placed and 800mL of thick dark green/brown fluid was removed. Patton catheter placed, about 900mL of fluid was removed. Constitutional: Denies: Chills, Fever Pulmonary: Reports: Dyspnea, Cough Cardiovascular: Denies: Chest Pain Gastrointestinal: Reports: Nausea, Constipation Genitourinary: Denies: Dysuria Objective Physical Examination General Exam: Positive: Alert, Cooperative, Mild Distress Eye Exam: Positive: EOMI; Negative: Sclera icteric ENT Exam: Positive: Atraumatic, Mucous membr. moist/pink Neck Exam: Positive: Supple Chest Exam: Positive: Clear to auscultation Heart Exam: Positive: Rate Normal Abdomen Exam: Positive: Normal bowel sounds, Soft; Negative: Tenderness Extremity Exam: Positive: Swelling (bilateral pitting edema) Neuro Exam: Positive: Cranial Nerves 3-12 NL Psych Exam: Positive: Mental status NL, Mood NL Assessment /Plan Assessment Mrs. Solano is a 75 year old female with COPD, here with COPD exacerbation. She has wheezing, new productive cough, and desaturation with ambulation. During her hospitalization, she's had 5 days of antibiotics. When she lost her initial IV line, we switched from IV steroids to oral steroids. That change might have been too quick and she developed nausea and vomiting. He went back up on the IV steroids. Then she developed a left lower lobe pneumonia. May be secondary to aspiration while vomiting. There is a concern for drug resistant organisms since she was on antibiotics for 5 days. Started her on Vanco and Zosyn for broad- spectrum coverage. In addition she developed acute anemia, which she was transfused. She responded appropriately. Anticoagulation was held. Today, she had more nausea. No abdominal pain or tenderness. She drank some tomato soup in front of me. Ordered CT abd/pelvis. Found to have high grade SBO in the right lower quadrant and acute urinary retention with 900mL of fluid. Spoke with the and daughter about it. Removed 800mL of dark green/brown fluid and 900mL of urine. Plan/VTE VTE Prophylaxis Ordered?: Yes Plan 1. SBO - High grade SBO with transition point in the right lower quadrant - 3rd time per family - General surgery following, recommendations appreciated - NPO, NGT, IVF, and POC glucose q6hrs - Lactic acid 1.2 2. Acute urinary retention - On CT abd/pelvis, had about 900mL - Patton catheter 3. COPD exacerbation - Initially came in with COPD exacerbation, but now resolved - Had 5 days of ceftriaxone/cefdinir and azithromycin. Developed aspiration pneumonia afterwards - Continue duonebs and inhalers - Weaning down steroids. Chronically on Hydrocortisone 20mg BID for adrenal insufficiency. 4. Left lower lobe pneumonia Seen on chest x-ray from 08/05/2020 Was not on previous chest x-rays. She was on antibiotics for 5 days prior May be secondary to aspiration from emesis Concern for multidrug resistant organisms. We'll place patient on vancomycin and Zosyn. - MRSA screen positive 5. Acute Anemia - Transfused 2u pRBC, responded appropriately (08/05 into 08/06) Continue trending CBC. Holding Eliquis 6. Atrial fibrillation/SVT - AC held due to anemia - Spoke with pharmacy about amiodarone. No need to convert to IV due to long half life - Spoke with pharmacy about diltiazem. Starting 15mL/hr drip (equivalent to 480 mg PO) 7. Diastolic CHF - Appears to be compensated. Holding Lasix due to PNA Echocardiogram demonstrates preserved EF with a grade 1 diastolic dysfunction. 8. DM - Will hold metformin and put on sliding scale insulin. POC glucose q6h Holding Levemir due to NPO status 9. Upper back pain - CT thoracic spine demonstrates T3 insufficiency fracture - Will need to follow up outpatient with spine surgeon 10. Adrenal insufficiency - We will hold the hydrocortisone since she will be receiving IV steroids. Plan to taper back to home hydrocortisone dosages. 11. Anxiety - Hold buspirone. NPO 12. Debility - PT/OT ordered and recommendations appreciated 13. Insomnia Steroid induced insomnia Monitor at this time 14. Paresthesias in hands Chronic, improved with wearing gloves May have a vascular component like Raynaud's. May cause fluctuations in the pulse ox read Told patient it was okay to wear gloves while in hospital 15 DVT ppx - AC held due to acute anemia. SCD and TEDs VS, I&O, 24H, Fishbone Vital Signs/I&O Vital Signs Date Time Temp Pulse Resp B/P (MAP) Pulse Ox O2 Delivery O2 Flow Rate FiO2 08/07/20 18:45 124/60 (81) 08/07/20 16:00 96.8 79 18 98 Room Air 08/07/20 12:00 0.5 l I&O- Last 24 Hours up to 6 AM 08/07/20 05:59 Intake Total 1180 ml Output Total 250 ml Balance 930 ml Laboratory Data 24H LABS Laboratory Tests 2 08/06/20 19:57: Bedside Glucose (Misc Panel) 190H 08/07/20 06:49: Nucleated Red Blood Cells % (auto) 0.2H, Anion Gap 6L, Glomerular Filtration Rate 33.9L, Calcium Level 6.8L, Vancomycin Level Trough 13.4 08/07/20 11:35: Bedside Glucose (Misc Panel) 240H 08/07/20 16:16: Bedside Glucose (Misc Panel) 182H 08/07/20 17:21: Lactic Acid Level 1.2 CBC/BMP Laboratory Tests 08/07/20 06:49 Microbiology Microbiology 08/05/20 Blood Culture - Preliminary, Resulted No Growth after 48 hours. All Specime... 07/29/20 Respiratory Virus Panel (PCR) ([facility]) - Final, Complete 07/29/20 Blood Culture - Final, Complete NO GROWTH AFTER 5 DAYS 07/29/20 Blood Culture - Final, Complete NO GROWTH AFTER 5 DAYS ALLEGRA WILL DO Aug 07, 2020 19:29
[2020-08-07] MEDS ORDERED: predniSONE 50 MG TAB PO SCH (21:00)
[2020-08-07] MEDS ORDERED: HYDROCORTISONE 10 MG TAB PO SCH (21:00)
[2020-08-07] MEDS ORDERED: diltiaZEM 125 MG in NS 100 ML IV SCH (21:00)
[2020-08-08] VITALS (20 sets, daily range): BP systolic 102–124; BP diastolic 56–75; O2SAT 94–98
[2020-08-08] MEDS: PIPERACILLIN/TAZOBACTAM SOD 3.375 GM in D5W MINI-BAG PLUS 50 ML IV SCH ×4 (02:55→20:04)
[2020-08-08] MEDS: DICLOFENAC EPOLAMINE 1.3 % PATCH TOP SCH ×2 (02:55→14:31)
[2020-08-08] MEDS: IPRATROPIUM 0.5MG/ALBUTEROL 2.5MG INH SOL UD 3ML (DUONEB) NEB SCH ×5 (03:12→19:50)
[2020-08-08] MEDS: SODIUM CHLORIDE 0.9% INJ 10 ML SYR IV SCH ×3 (05:58→22:05)
[2020-08-08 06:44] LABS: HEMATOCRIT 24.9 % (36.0-47.0); HEMOGLOBIN 7.8 g/dl (12.0-15.5); MEAN CORPUSCULAR HEMOGLOBIN 29.3 pg (27.0-33.0); MEAN CORPUSCULAR HGB CONC 31.3 g/dl (32.0-36.5); MEAN CORPUSCULAR VOLUME 93.6 fl (80.0-96.0); PLATELET COUNT, AUTOMATED 192 10^3/uL (150-450); RED BLOOD COUNT 2.66 10^6/uL (4.00-5.40); WHITE BLOOD COUNT 21.4 10^3/uL (4.0-10.0)
[2020-08-08 07:11] LABS: CALCIUM LEVEL 6.8 MG/DL (8.8-10.2); CREATININE FOR GFR 1.28 MG/DL (0.55-1.30); GLOMERULAR FILTRATION RATE 43.2 (>39); POTASSIUM SERUM 3.7 MEQ/L (3.5-5.1); VANCOMYCIN LEVEL TROUGH 9.7 UG/ML (10.0-20.0)
[2020-08-08] MEDS: SYMBICORT 160/4.5MCG INHALER 6GM INH SCH ×2 (07:20→19:50)
[2020-08-08] MEDS: HumaLOG INSULIN (NovoLOG) PER UNIT SC SCH ×5 (07:24→23:43)
[2020-08-08] MEDS: VANCOMYCIN HCL 1,000 MG, VIAL MATE ADAPTER 1 EACH in D5W 250 ML IV SCH (08:13)
[2020-08-08] MEDS: methylPREDNISolone 125MG 2ML VIAL IV SCH ×2 (08:13→20:03)
[2020-08-08] MEDS: NICOTINE 14 MG/24 HR TRANSDERMAL TD SCH (08:14)
[2020-08-08] MEDS: NS 1,000 ML IV SCH ×2 (08:14→16:56)
[2020-08-08] MEDS: PANTOPRAZOLE 40MG VIAL (C9113 PER 1) IV SCH ×2 (09:59→20:03)
[2020-08-08 12:20] LABS: HEMATOCRIT 24.9 % (36.0-47.0); HEMOGLOBIN 7.9 g/dl (12.0-15.5); MEAN CORPUSCULAR HEMOGLOBIN 29.7 pg (27.0-33.0); MEAN CORPUSCULAR HGB CONC 31.7 g/dl (32.0-36.5); MEAN CORPUSCULAR VOLUME 93.6 fl (80.0-96.0); PLATELET COUNT, AUTOMATED 207 10^3/uL (150-450); RED BLOOD COUNT 2.66 10^6/uL (4.00-5.40); WHITE BLOOD COUNT 21.7 10^3/uL (4.0-10.0)
[2020-08-08] MEDS: CEPACOL LOZENGE PO PRN (16:55)
[2020-08-08 17:28] LABS: HEMATOCRIT 23.6 % (36.0-47.0); HEMOGLOBIN 7.6 g/dl (12.0-15.5)
--- NOTE | 2020-08-08 19:49 | IPNPDOC ---
Subjective Date Seen The patient was seen on 08/08/20. Subjective Chief Complaint/HPI Mrs. Solano is a 75 year old female with adrenal insufficiency, COPD, and arthritis here with with low back pain and dyspnea 2/2 COPD exacerbation. This morning, she was lethargic, but was more awake in afternoon when was present. Cuddy better with the NGT draining bile, but would like the NGT removed as soon as possible. Despite NGT, she wanted to drink rosanna jessica. Denies fever/chills, chest pain, abdominal, or diarrhea. Has chronic shoulder pain. Has dyspnea, but saturating well at room air. Constitutional: Denies: Chills, Fever Pulmonary: Reports: Dyspnea Cardiovascular: Denies: Chest Pain Gastrointestinal: Denies: Nausea, Abdominal Pain Genitourinary: Denies: Dysuria Objective Physical Examination General Exam: Positive: Alert, Cooperative, Mild Distress Eye Exam: Positive: EOMI; Negative: Sclera icteric ENT Exam: Positive: Atraumatic, Mucous membr. moist/pink Neck Exam: Positive: Supple Chest Exam: Positive: Clear to auscultation Heart Exam: Positive: Rate Normal Abdomen Exam: Positive: Normal bowel sounds, Soft; Negative: Tenderness Extremity Exam: Positive: Swelling (bilateral pitting edema) Neuro Exam: Positive: Cranial Nerves 3-12 NL Psych Exam: Positive: Mental status NL, Mood NL Assessment /Plan Assessment Mrs. Solano is a 75 year old female with COPD, here with COPD exacerbation, aspiration pneumonia, acute anemia requiring transfusions, and SBO. Initially, she has wheezing, new productive cough, and desaturation with ambulation. During her hospitalization, she's had 5 days of antibiotics. Steroids were quickly tapered, but developed N/V. Initially thought it was secondary to fast tapering in the setting of adrenal insufficiency. She was not getting better and found to have aspiration pneumonia and acute anemia. Anticoagulation was held, central line placed due to poor access and inability to get a PICC. She was placed on Vancomycin and Zosyn since she was previously on Ceftriaxone for 5 days. She responded appropriately to blood transfusion. Following that, she continue to have periodic nausea. CT abd/pelvis demonstrated acute urinary retention and SBO. General surgery consulted. NGT placed. Plan/VTE VTE Prophylaxis Ordered?: Yes Plan 1. SBO - High grade SBO with transition point in the right lower quadrant - 3rd time per family - General surgery following, recommendations appreciated - NPO, NGT, IVF, and POC glucose q6hrs - Lactic acid 1.2 - Okay for sips of water to moisten mouth. Rosanna jessica okay as well 2. Acute urinary retention - On CT abd/pelvis, had about 900mL - Patton catheter 3. COPD exacerbation - Initially came in with COPD exacerbation, but now resolved - Had 5 days of ceftriaxone/cefdinir and azithromycin. Developed aspiration pneumonia afterwards - Continue duonebs and inhalers - Weaning down steroids. Chronically on Hydrocortisone 20mg BID for adrenal insufficiency. 4. Left lower lobe pneumonia Seen on chest x-ray from 08/05/2020 Was not on previous chest x-rays. She was on antibiotics for 5 days prior May be secondary to aspiration from emesis Concern for multidrug resistant organisms. We'll place patient on vancomycin and Zosyn. - MRSA screen positive 5. Acute Anemia - Transfused 2u pRBC, responded appropriately (08/05 into 08/06) Continue trending CBC. Holding Eliquis 6. Atrial fibrillation/SVT - AC held due to anemia - Spoke with pharmacy about amiodarone. No need to convert to IV due to long half life - Holding diltiazem for now 7. Diastolic CHF - Appears to be compensated. Holding Lasix due to PNA/Sepsis Echocardiogram demonstrates preserved EF with a grade 1 diastolic dysfunction. 8. DM - Will hold metformin and put on sliding scale insulin. POC glucose q6h Holding Levemir due to NPO status 9. Upper back pain - CT thoracic spine demonstrates T3 insufficiency fracture - Will need to follow up outpatient with spine surgeon 10. Adrenal insufficiency - We will hold the hydrocortisone since she will be receiving IV steroids. Plan to taper back to home hydrocortisone dosages. Continue IV steroids for now 11. Anxiety - Hold buspirone. NPO 12. Debility - PT/OT ordered and recommendations appreciated 13. Insomnia Steroid induced insomnia Monitor at this time 14. Paresthesias in hands Chronic, improved with wearing gloves Told patient it was okay to wear gloves while in hospital 15 DVT ppx - AC held due to acute anemia. SCD and TEDs VS, I&O, 24H, Fishbone Vital Signs/I&O Vital Signs Date Time Temp Pulse Resp B/P (MAP) Pulse Ox O2 Delivery O2 Flow Rate FiO2 08/08/20 16:00 95 Room Air 08/08/20 16:00 98.0 85 22 102/75 (84) 08/07/20 12:00 0.5 I&O- Last 24 Hours up to 6 AM 08/08/20 06:00 Intake Total 50 ml Output Total 3350 ml Balance -3300 ml Laboratory Data 24H LABS Laboratory Tests 2 08/07/20 19:53: Bedside Glucose (Misc Panel) 137H 08/08/20 00:55: Bedside Glucose (Misc Panel) 118H 08/08/20 06:05: Nucleated Red Blood Cells % (auto) 0.1H 08/08/20 06:20: Anion Gap 5L, Glomerular Filtration Rate 43.2, Calcium Level 6.8L, Vancomycin Level Trough 9.7L 08/08/20 06:32: 08/08/20 11:13: Bedside Glucose (Misc Panel) 222H 08/08/20 11:37: Nucleated Red Blood Cells % (auto) 0.1H 08/08/20 16:28: Bedside Glucose (Misc Panel) 170H CBC/BMP Laboratory Tests 08/08/20 06:05 08/08/20 06:20 08/08/20 11:37 08/08/20 16:57 Microbiology Microbiology 08/08/20 Occult Blood - Final, Complete 08/05/20 Blood Culture - Preliminary, Resulted No Growth after 72 hours. All specime... 07/29/20 Respiratory Virus Panel (PCR) ([facility]) - Final, Complete 07/29/20 Blood Culture - Final, Complete NO GROWTH AFTER 5 DAYS 07/29/20 Blood Culture - Final, Complete NO GROWTH AFTER 5 DAYS ALLEGRA WILL DO Aug 08, 2020 19:49
[2020-08-09] VITALS (17 sets, daily range): BP systolic 113–139; BP diastolic 56–71; O2SAT 95–100
[2020-08-09] MEDS: IPRATROPIUM 0.5MG/ALBUTEROL 2.5MG INH SOL UD 3ML (DUONEB) NEB SCH ×7 (00:05→23:07)
[2020-08-09 00:09] LABS: HEMATOCRIT 23.3 % (36.0-47.0); HEMOGLOBIN 7.4 g/dl (12.0-15.5)
[2020-08-09] MEDS: DICLOFENAC EPOLAMINE 1.3 % PATCH TOP SCH ×2 (03:39→14:36)
[2020-08-09] MEDS: PIPERACILLIN/TAZOBACTAM SOD 3.375 GM in D5W MINI-BAG PLUS 50 ML IV SCH ×4 (03:39→20:53)
[2020-08-09] MEDS: CEPACOL LOZENGE PO PRN ×2 (04:39→14:35)
[2020-08-09] MEDS: HumaLOG INSULIN (NovoLOG) PER UNIT SC SCH ×4 (05:57→23:53)
[2020-08-09] MEDS: SODIUM CHLORIDE 0.9% INJ 10 ML SYR IV SCH ×3 (05:57→21:41)
[2020-08-09 06:02] LABS: HEMATOCRIT 23.4 % (36.0-47.0); HEMOGLOBIN 7.4 g/dl (12.0-15.5); MEAN CORPUSCULAR HEMOGLOBIN 29.8 pg (27.0-33.0); MEAN CORPUSCULAR HGB CONC 31.6 g/dl (32.0-36.5); MEAN CORPUSCULAR VOLUME 94.4 fl (80.0-96.0); PLATELET COUNT, AUTOMATED 202 10^3/uL (150-450); RED BLOOD COUNT 2.48 10^6/uL (4.00-5.40); WHITE BLOOD COUNT 17.2 10^3/uL (4.0-10.0)
[2020-08-09 06:27] LABS: BLOOD UREA NITROGEN 47 MG/DL (7-18); CARBON DIOXIDE LEVEL 25 MEQ/L (21-32); CHLORIDE LEVEL 106 MEQ/L (98-107); GLOMERULAR FILTRATION RATE > 60.0 (>39); GLUCOSE, FASTING 157 MG/DL (70-100); POTASSIUM SERUM 3.4 MEQ/L (3.5-5.1); SODIUM LEVEL 137 MEQ/L (136-145)
[2020-08-09] MEDS: SYMBICORT 160/4.5MCG INHALER 6GM INH SCH ×2 (07:10→19:19)
[2020-08-09] MEDS: NS 1,000 ML IV SCH ×2 (07:30→20:57)
--- NOTE | 2020-08-09 07:56 | IPNPDOC ---
Text Note Date of Service The patient was seen on 08/09/20. NOTE No acute events overnight. Denies nausea, emesis, or abd pains. No flatus or BM yet. She has had minimal bilious NG output over last 24 hours, and she adamant that the NG tube comes out. VSSAF NAD abd - soft, ND, NT labs - below A) 75y/o female with COPD exacerbation and mechanical SBO likeley secondary to pelvic adhesions P) NGT to LIS ok to have sips and chips check abd xray possibly give some laxatives to help resolve the obstruction if xray is improved. Dennis Blanco DO VS,Eun, I+O VS, Rejie, I+O Laboratory Tests 08/08/20 11:37 08/08/20 16:57 08/08/20 23:25 08/09/20 05:45 Vital Signs Date Time Temp Pulse Resp B/P (MAP) Pulse Ox O2 Delivery O2 Flow Rate FiO2 08/09/20 04:00 96.2 94 20 127/60 (82) 95 Room Air 08/07/20 12:00 0.5 I&O- Last 24 Hours up to 6 AM 08/09/20 06:00 Intake Total 2130.0 ml Output Total 2225 ml Balance -95.0 ml JAVED BLANCO DO Aug 09, 2020 07:56
--- NOTE | 2020-08-09 09:09 | REPVR ---
PROCEDURE INFORMATION: Exam: XR Abdomen, 2 Views Exam date and time: 08/09/2020 7:53 AM Age: 75 years old Clinical indication: Other: Sbo TECHNIQUE: Imaging protocol: XR of the abdomen. Views: 2 Views. COMPARISON: CT ABD PELVIS W/O CONTRAST 08/07/2020 3:24 PM FINDINGS: Tubes, catheters and devices: Enteric tube tip is obscured most likely extends to the area of GE junction or proximal stomach. Gastrointestinal tract: Prominent gas distention of bowel throughout the abdomen and pelvis with multiple persistent air-fluid levels suggestive of bowel obstruction. Intraperitoneal space: The decubitus image does not include the entirety of the abdomen in the anterior portion is obscured limiting assessment for free air. Vasculature: Abdominal aortic calcification. Bones/joints: Osteopenia. IMPRESSION: One. Abnormal bowel gas pattern suggestive of persistent mechanical obstruction. Electronically signed by: Lorena Alonso On 08/09/2020 09:08:58 AM
[2020-08-09] MEDS: VANCOMYCIN HCL 1,000 MG, VIAL MATE ADAPTER 1 EACH in D5W 250 ML IV SCH (09:11)
[2020-08-09] MEDS: methylPREDNISolone 125MG 2ML VIAL IV SCH ×2 (09:11→20:56)
[2020-08-09] MEDS: NICOTINE 14 MG/24 HR TRANSDERMAL TD SCH (09:11)
[2020-08-09] MEDS: PANTOPRAZOLE 40MG VIAL (C9113 PER 1) IV SCH ×2 (09:11→20:53)
[2020-08-09 10:20] LABS: VANCOMYCIN LEVEL TROUGH 13.5 UG/ML (10.0-20.0)
--- NOTE | 2020-08-09 16:20 | CR ---
DATE OF CONSULTATION: 08/08/2020 REASON FOR CONSULTATION: Small bowel obstruction. HISTORY OF PRESENT ILLNESS: The patient is a 75-year-old female who came into the hospital on the for shortness of breath and a productive cough. She was diagnosed with chronic obstructive pulmonary disease (COPD) exacerbation. She has been treated for that for a little over a week now. During her hospital stay, she has also had some adrenal insufficiency and is currently on steroids for that. Her last bowel movement was four days ago. Yesterday afternoon, she started to have some nausea, some abdominal distention and vomiting. CT was done that showed a high-grade obstruction in the right lower quadrant. Due to her not having any abdominal pain or tenderness, and normal lactic acid, we felt it was safe to treat her with NG tube decompression. This morning she has had almost two liters of output from her NG that is brownish in color; no blood in it. She feels significant improvement, said her belly is much softer than it was yesterday, much less distended. She has no complaints today other than some dry mouth from having the NG tube in place. She apparently has had about three bowel obstructions in the past, all have resolved spontaneously. Only abdominal surgery was a hysterectomy almost 40-50 years ago. No other current complaints. PAST MEDICAL HISTORY: * Cerebrovascular accident (CVA) and transient ischemic attack (TIA). * Seizure history. * Diastolic heart failure, supraventricular tachycardia (SVT), atrial fibrillation (Afib). * Chronic obstructive pulmonary disease (COPD). * Adrenal insufficiency. * Urinary retention. * Arthritis. * Anxiety. * Anemia. PAST SURGICAL HISTORY: * Bilateral cataracts. * Left breast biopsy. * Hysterectomy. * Cervical and thoracic spine surgery. FAMILY HISTORY: Noncontributory. SOCIAL HISTORY: Smokes a pack a day. Denies drug or alcohol usage. REVIEW OF SYSTEMS: Pertinent positives and negatives stated in history of present illness (HPI). PHYSICAL EXAMINATION: GENERAL: Patient is alert and oriented x3; no acute distress. VITALS: Temperature 97.8, pulse 66, respirations 18, blood pressure 115/57, pulse ox 95% on room air. HEENT: Pupils equally round and reactive to light and accommodation. HEART: S1, S2. Regular rate and rhythm. LUNGS: Clear bilaterally. ABDOMEN: Soft, slightly distended, nontender. No sign of any ventral hernias. EXTREMITIES: No cyanosis, clubbing or edema. LABORATORY DATA: White count 21.54, hemoglobin 7.8, platelets 192. Potassium 3.7. Creatinine 1.28. Lactic acid yesterday was 1.2. IMAGING: CT of abdomen and pelvis done yesterday afternoon showed no free air, no fluid collections. There are proximal loops of small bowel dilated up to 5 cm. Distal small bowel is decreased transition point in the right lower quadrant. Colonic diverticulosis. Cholelithiasis. Discoid atelectasis. Multiple bilateral healed lower rib fractures. Hysterectomy and a distended bladder. ASSESSMENT AND PLAN: Patient is a 75-year-old female currently being treated for adrenal insufficiency, chronic obstructive pulmonary disease (COPD) exacerbation and has acute onset of a high-grade small bowel obstruction likely secondary to adhesions from a prior hysterectomy. Recommendation at this time is to continue with NG tube decompression. She has had three successful small bowel obstructions in the past, all resolved with decompression. She is already showing significant improvement. Will continue to monitor her for the next 48-72 hours to see if this resolves completely on its own. If not, then we will discuss surgical intervention at that time. GWEN
[2020-08-09] MEDS: CHLORASEPTIC SPRAY MT PRN ×2 (17:25→20:56)
[2020-08-10] VITALS (29 sets, daily range): BP systolic 122–140; BP diastolic 57–65; O2SAT 98–100
[2020-08-10] MEDS ORDERED: diphenhydrAMINE 25MG CAP PO ONE (00:15)
[2020-08-10] MEDS ORDERED: diphenhydrAMINE 50MG/ML VIAL (J1200) IV ONE (00:30)
[2020-08-10] MEDS: IPRATROPIUM 0.5MG/ALBUTEROL 2.5MG INH SOL UD 3ML (DUONEB) NEB SCH ×6 (02:37→23:27)
[2020-08-10] MEDS: PIPERACILLIN/TAZOBACTAM SOD 3.375 GM in D5W MINI-BAG PLUS 50 ML IV SCH ×4 (02:56→20:19)
[2020-08-10] MEDS: DICLOFENAC EPOLAMINE 1.3 % PATCH TOP SCH ×2 (02:56→15:00)
[2020-08-10] MEDS: SODIUM CHLORIDE 0.9% INJ 10 ML SYR IV SCH ×3 (05:00→20:20)
[2020-08-10] MEDS: NS 1,000 ML IV SCH (05:00)
[2020-08-10 05:07] LABS: HEMATOCRIT 22.4 % (36.0-47.0); MEAN CORPUSCULAR HEMOGLOBIN 29.4 pg (27.0-33.0); MEAN CORPUSCULAR HGB CONC 30.4 g/dl (32.0-36.5); PLATELET COUNT, AUTOMATED 200 10^3/uL (150-450); RED BLOOD COUNT 2.31 10^6/uL (4.00-5.40); WHITE BLOOD COUNT 19.3 10^3/uL (4.0-10.0)
[2020-08-10 05:27] LABS: HEMOGLOBIN 6.8 g/dl (12.0-15.5)
[2020-08-10 05:43] LABS: BLOOD UREA NITROGEN 35 MG/DL (7-18); CALCIUM LEVEL 7.1 MG/DL (8.8-10.2); CARBON DIOXIDE LEVEL 24 MEQ/L (21-32); CHLORIDE LEVEL 110 MEQ/L (98-107); CREATININE FOR GFR 0.82 MG/DL (0.55-1.30); GLOMERULAR FILTRATION RATE > 60.0 (>39); GLUCOSE, FASTING 151 MG/DL (70-100); POTASSIUM SERUM 3.2 MEQ/L (3.5-5.1); SODIUM LEVEL 142 MEQ/L (136-145)
[2020-08-10] MEDS: KCL 20MEQ IN 100ML SWI (KRUN) 20 MEQ in IV 1 EA IV SCH ×4 (06:30→07:43)
[2020-08-10] MEDS: HumaLOG INSULIN (NovoLOG) PER UNIT SC SCH ×3 (06:30→17:21)
[2020-08-10] MEDS: SYMBICORT 160/4.5MCG INHALER 6GM INH SCH ×2 (07:29→19:36)
--- NOTE | 2020-08-10 07:30 | IPNPDOC ---
Text Note Date of Service The patient was seen on 08/10/20. NOTE No acute events overnight. Denies nausea, emesis, or abd pains. She is passing lots of flatus, but no BM yet. VSSAF NAD abd - soft, ND, NT labs - below abd - xray - dilated loops of small bowel with air fluid levels and the NG appears to be at the GE junction. A) 75y/o female with COPD exacerbation and mechanical SBO likeley secondary to pelvic adhesions P) NGT to LIS and advance by 5cm ok to have sips and chips OOB to chair ambulate will try 2 doses of laxatives throughout the day will discuss OR tomorrow if there is no improvement Dennis Blanco DO VS,Eun, I+O VS, Eun, I+O Laboratory Tests 08/10/20 05:00 Vital Signs Date Time Temp Pulse Resp B/P (MAP) Pulse Ox O2 Delivery O2 Flow Rate FiO2 08/10/20 05:00 100 Nasal Cannula 1.0 08/10/20 04:00 96.3 97 18 130/59 (82) I&O- Last 24 Hours up to 6 AM 08/10/20 05:59 Intake Total 2720.5 ml Output Total 2340 ml Balance 380.5 ml JAVED BLANCO DO Aug 10, 2020 07:30
--- NOTE | 2020-08-10 07:40 | IPN ---
DATE: 08/09/2020 SUBJECTIVE: Dimple is seen while rounding with the hospitalist. She is frustrated and disappointed about the nasogastric tube staying in place. This is being managed by Dr. Blanco. She denies shortness of breath, no chest pain. She was admitted with a chronic obstructive pulmonary disease (COPD) exacerbation, developed aspiration pneumonia, acute anemia requiring transfusion as well as small bowel obstruction. No overt bleeding. No fevers or chills. PHYSICAL EXAMINATION: Vital signs: Blood pressure 127/60, pulse 94, respiratory rate 18, 95% O2 saturation. General appearance: Alert, conversant, frustrated. Nasogastric tube in place. Lungs: Scattered rhonchi. Heart regular rhythm. Abdomen soft and nontender. Trace peripheral edema. LABS: Hemoglobin 7.4 which is stable. Hemoglobin is 17.2, platelets 202. Sodium 137, potassium 3.4, BUN 47, creatinine is down to 0.9. It was 1.5 two days ago. IMPRESSION: 1. Aspiration pneumonia. Continue Zosyn, Vancomycin, and IV Solu-Medrol with nebulized bronchodilator. 2. Small bowel obstruction per surgery. 3. Tobacco abuse. Nicotine substitution patch. 4. Acute kidney injury. Renal function is back to baseline. 5. Diabetes. Receiving about 20 units of insulin a day by sliding scale. If this insulin need persists, we will start basal insulin in the next day or so. MTDD
[2020-08-10] MEDS ORDERED: MAGNESIUM CITRATE 300 ML BTL PO ONE (07:45)
[2020-08-10] MEDS: PANTOPRAZOLE 40MG VIAL (C9113 PER 1) IV SCH ×2 (09:15→20:20)
[2020-08-10] MEDS: methylPREDNISolone 125MG 2ML VIAL IV SCH ×2 (09:25→20:20)
[2020-08-10] MEDS: NICOTINE 14 MG/24 HR TRANSDERMAL TD SCH (09:26)
[2020-08-10] MEDS: VANCOMYCIN HCL 1,000 MG, VIAL MATE ADAPTER 1 EACH in D5W 250 ML IV SCH (09:26)
[2020-08-10] MEDS: CHLORASEPTIC SPRAY MT PRN ×2 (11:38→17:00)
[2020-08-10] MEDS: CEPACOL LOZENGE PO PRN (12:56)
[2020-08-10] MEDS: PROMETHAZINE INJ 25 MG/ML VIAL (J2550) IV PRN (20:29)
[2020-08-11] VITALS (10 sets, daily range): BP systolic 111–141; BP diastolic 56–84; O2SAT 98–99
[2020-08-11] MEDS: NS 1,000 ML IV SCH ×3 (01:08→17:23)
[2020-08-11] MEDS: DICLOFENAC EPOLAMINE 1.3 % PATCH TOP SCH ×2 (02:32→16:23)
[2020-08-11] MEDS: PIPERACILLIN/TAZOBACTAM SOD 3.375 GM in D5W MINI-BAG PLUS 50 ML IV SCH ×4 (03:32→21:56)
[2020-08-11] MEDS: IPRATROPIUM 0.5MG/ALBUTEROL 2.5MG INH SOL UD 3ML (DUONEB) NEB SCH ×4 (03:59→19:52)
[2020-08-11] MEDS: SODIUM CHLORIDE 0.9% INJ 10 ML SYR IV SCH ×3 (06:00→21:57)
[2020-08-11] MEDS: HumaLOG INSULIN (NovoLOG) PER UNIT SC SCH ×4 (06:00→18:18)
[2020-08-11 06:32] LABS: MEAN CORPUSCULAR HEMOGLOBIN 30.2 pg (27.0-33.0); MEAN CORPUSCULAR HGB CONC 31.9 g/dl (32.0-36.5); MEAN CORPUSCULAR VOLUME 94.5 fl (80.0-96.0); PLATELET COUNT, AUTOMATED 164 10^3/uL (150-450); RED BLOOD COUNT 3.28 10^6/uL (4.00-5.40); WHITE BLOOD COUNT 19.8 10^3/uL (4.0-10.0)
[2020-08-11 06:33] LABS: HEMOGLOBIN 9.9 g/dl (12.0-15.5)
[2020-08-11 06:43] LABS: BLOOD UREA NITROGEN 28 MG/DL (7-18); CALCIUM LEVEL 7.3 MG/DL (8.8-10.2); CARBON DIOXIDE LEVEL 21 MEQ/L (21-32); CHLORIDE LEVEL 111 MEQ/L (98-107); GLOMERULAR FILTRATION RATE > 60.0 (>39); GLUCOSE, FASTING 179 MG/DL (70-100); POTASSIUM SERUM 3.3 MEQ/L (3.5-5.1); SODIUM LEVEL 141 MEQ/L (136-145)
[2020-08-11] MEDS: SYMBICORT 160/4.5MCG INHALER 6GM INH SCH ×2 (07:24→19:53)
--- NOTE | 2020-08-11 07:45 | RO ---
DATE OF OPERATION: 08/05/2020. PREPROCEDURE DIAGNOSES: Profound anemia, hypotension, need for vascular access. POSTPROCEDURE DIAGNOSES: Profound anemia, hypotension, need for vascular access. OPERATIVE PROCEDURE: Insertion of left subclavian central line. SURGEON: Elias Finley M.D. SMELLER: ANESTHESIA: DESCRIPTION OF PROCEDURE: Patient's infraclavicular fossa on the left was prepped and draped in usual sterile fashion. The infraclavicular fossa was infiltrated with 1% Lidocaine and patient was placed in deep Trendelenburg. Vein was found on the first pass and wire was placed without difficulty. Track was dilated and a triple lumen catheter was placed. Ports were aspirated and flushed. Catheter was secured to the chest wall with two 3-0 silk sutures. Patient tolerated the procedure well and chest x-ray is pending. [facility]
--- NOTE | 2020-08-11 07:50 | IPN ---
DATE: 08/10/2020 Laura is seen in progressive care unit (PCU). At this point, she is essentially a surgical patient. Has a small-bowel obstruction, being treated with nasogastric suctioning and laxative therapy. Dr. Blanco's notes have been reviewed. He is planning surgery if she does not respond to conservative measures by tomorrow. She has an aspiration pneumonia and is responding well to Zosyn and vancomycin. Has acute kidney injury that resolved with hydration. She is anemic. Hemoglobin has been stable. It dropped to 6.8 this morning, so she is being transfused. Also has some mild electrolyte abnormalities with some hypokalemia, which is being addressed. PHYSICAL EXAMINATION: Blood pressure 130/59, pulse around 90, respiratory rate 18, percent oxygen saturation on 1 liter. GENERAL APPEARANCE: Frail, elderly. Needs a lot of help getting out of bed to the chair. LUNGS: Decreased breath sounds. Scattered rhonchi. HEART: Regular rate and rhythm. ABDOMEN: Soft, nontender, nondistended. No trace peripheral edema. Moves arms and legs with equal strength. LABORATORY DATA: Hemoglobin is down to 6.8, white count 19.3, platelets are 200. Sodium 142, potassium 3.2, BUN 32, creatinine 0.8, glucose 150. IMPRESSION: 1. Anemia. Transfuse 2 units packed red blood cells. Followup complete blood count (CBC) tomorrow. 2. Aspiration pneumonia. Continue vancomycin and Zosyn. 3. Small-bowel obstruction. Plan for surgery. Might be going to the operating room (OR) tomorrow. 4. Diabetes. She got about 12 units of insulin yesterday and now starting basal insulin, as her insulin requirements are low, and she might be going to OR tomorrow. GWEN
--- NOTE | 2020-08-11 08:11 | IPNPDOC ---
Text Note Date of Service The patient was seen on 08/11/20. NOTE No acute events overnight. Denies nausea, emesis, or abd pains. She is passing lots of flatus, but still no BM. I attempted laxatives yesterday to help with the obstruction, but there was still no BM and she is still having minimal NG output but that is still bilious. VSSAF NAD abd - soft, ND, NT labs - below A) 75y/o female with COPD exacerbation and mechanical SBO likeley secondary to pelvic adhesions that is not resolving P) NGT to LIS ok to have sips and chips NPO after midnight OOB to chair ambulate Due to poor OR availability today, I will plan for robotic assisted exploratory laparoscopy with lysis of adhesions tomorrow at 9:30am. She is scheduled alrea tho, and I discussed this with her as well as her . All questions have been answered. Dennis Blanco DO VS,Eun, I+O VS, Fisheamone, I+O Laboratory Tests 08/11/20 05:59 Vital Signs Date Time Temp Pulse Resp B/P (MAP) Pulse Ox O2 Delivery O2 Flow Rate FiO2 08/11/20 04:00 1.0 08/11/20 04:00 98.5 80 18 140/84 (102) 99 Nasal Cannula I&O- Last 24 Hours up to 6 AM 08/11/20 06:00 Intake Total 2292 ml Output Total 825 ml Balance 1467 ml JAVED BLANCO DO Aug 11, 2020 08:11
[2020-08-11] MEDS: KCL 10MEQ/100ML SWI (KRUN) 10 MEQ in IV 1 EA IV SCH ×2 (08:15→10:01)
[2020-08-11] MEDS: VANCOMYCIN HCL 1,000 MG, VIAL MATE ADAPTER 1 EACH in D5W 250 ML IV SCH (08:16)
[2020-08-11] MEDS: NICOTINE 14 MG/24 HR TRANSDERMAL TD SCH (10:01)
[2020-08-11] MEDS: PANTOPRAZOLE 40MG VIAL (C9113 PER 1) IV SCH ×2 (10:02→21:56)
[2020-08-11] MEDS: methylPREDNISolone 125MG 2ML VIAL IV SCH (10:02)
--- NOTE | 2020-08-11 10:48 | REP ---
PORTABLE CHEST HISTORY: Nasogastric tube placement. TECHNIQUE: Single portable view of the chest is performed and compared to a prior study of 08/05/2020. FINDINGS: The previously noted infiltrate or atelectasis in the left lung base is improved with mild residual. Right lung remains clear. Heart is not enlarged. There is calcification and tortuosity of the thoracic aorta. The mediastinal silhouette is unchanged. Left central venous catheter is again seen with the tip in the superior vena cava. Nasogastric tube has been placed. The side port is in the body of the stomach. MTDD
[2020-08-11] MEDS: CHLORASEPTIC SPRAY MT PRN ×2 (16:28→22:13)
--- NOTE | 2020-08-11 20:12 | IPNPDOC ---
Subjective Date Seen The patient was seen on 08/11/20. Subjective Chief Complaint/HPI Mrs. Solano is a 75 year old female with adrenal insufficiency, COPD, and arthritis here with with low back pain, dyspnea 2/2 COPD exacerbation, and small bowel obstruction. Last night, she was transfused with 2u of pRBC for a total of 4 units during this admission. Today, she was initially planned to go to the OR, but due to low availability, it has been rescheduled to tomorrow morning. Otherwise, this morning, she denies any fever/chills, chest pain, abdominal pain, or dysuria. She still has dyspnea, but saturating well at room air Constitutional: Denies: Chills, Fever Pulmonary: Reports: Dyspnea Cardiovascular: Denies: Chest Pain Gastrointestinal: Denies: Abdominal Pain Genitourinary: Denies: Dysuria Objective Physical Examination General Exam: Positive: Alert, Cooperative, Mild Distress Eye Exam: Positive: EOMI; Negative: Sclera icteric ENT Exam: Positive: Atraumatic, Mucous membr. moist/pink Neck Exam: Positive: Supple Chest Exam: Positive: Clear to auscultation Heart Exam: Positive: Rate Normal Abdomen Exam: Positive: Normal bowel sounds, Soft; Negative: Tenderness Extremity Exam: Positive: Swelling (bilateral pitting edema) Neuro Exam: Positive: Cranial Nerves 3-12 NL Psych Exam: Positive: Mental status NL, Mood NL Assessment /Plan Assessment Mrs. Solano is a 75 year old female with COPD, here with COPD exacerbation, asp iration pneumonia, acute anemia requiring transfusions, and SBO. Initially, she has wheezing, new productive cough, and desaturation with ambulation. During her hospitalization, she's had 5 days of antibiotics. Steroids were quickly tapered, but developed N/V. Initially thought it was secondary to fast tapering in the setting of adrenal insufficiency. She was not getting better and found to have a spiration pneumonia and acute anemia. Anticoagulation was held, central line placed due to poor access and inability to get a PICC. She was placed on Vancomycin and Zosyn since she was previously on Ceftriaxone for 5 days. She responded appropriately to blood transfusion. Following that, she continue to have periodic nausea. CT abd/pelvis demonstrated acute urinary retention and SBO. General surgery consulted. NGT placed. NGT still present this morning, but she had bowel movements today. Originally planned for OR today to remove adhesions, but rescheduled to tomorrow. She will need rehab by the end of this admission Plan/VTE VTE Prophylaxis Ordered?: Yes Plan 1. SBO - High grade SBO with transition point in the right lower quadrant - 3rd time per family - General surgery following, recommendations appreciated - NPO, NGT, IVF, and POC glucose q6hrs - Lactic acid 1.2 - Planning for surgery tomorrow morning to remove adhesions 2. Acute urinary retention - On CT abd/pelvis, had about 900mL - Patton catheter 3. COPD exacerbation - Initially came in with COPD exacerbation, but now resolved - Had 5 days of ceftriaxone/cefdinir and azithromycin. Developed aspiration pneumonia afterwards - Continue duonebs and inhalers - Weaning down steroids. Chronically on Hydrocortisone 20mg BID for adrenal insufficiency. 4. Left lower lobe pneumonia Seen on chest x-ray from 08/05/2020 Was not on previous chest x-rays. She was on antibiotics for 5 days prior May be secondary to aspiration from emesis Concern for multidrug resistant organisms. We'll place patient on vancomycin (discontinued due to low procalcitonin) and Zosyn. - MRSA screen positive - Procalcitonin low. Possibly not a pneumonia. Discontinued Vancomycin today. Continued Zosyn for abdominal surgery 5. Acute Anemia - Transfused 2u pRBC, responded appropriately (08/05 into 08/06) - Transfused another 2u pRBC, responded appropriately (08/10 into 08/11) Continue trending CBC. Holding Eliquis 6. Atrial fibrillation/SVT - AC held due to anemia - Spoke with pharmacy about amiodarone. No need to convert to IV due to long half life - Holding diltiazem for now 7. Diastolic CHF - Appears to be compensated. Holding Lasix due to PNA/Sepsis Echocardiogram demonstrates preserved EF with a grade 1 diastolic dysfunction. 8. DM - Will hold metformin and put on sliding scale insulin. POC glucose q6h Holding Levemir due to NPO status 9. Upper back pain - CT thoracic spine demonstrates T3 insufficiency fracture - Will need to follow up outpatient with spine surgeon 10. Adrenal insufficiency - We will hold the hydrocortisone since she will be receiving IV steroids. Plan to taper back to home hydrocortisone dosages. Continue IV steroids for now 11. Anxiety - Hold buspirone. NPO 12. Debility - PT/OT ordered and recommendations appreciated 13. Insomnia Steroid induced insomnia Monitor at this time 14. Paresthesias in hands Chronic, improved with wearing gloves Told patient it was okay to wear gloves while in hospital 15 DVT ppx - AC held due to acute anemia. SCD and TEDs VS, I&O, 24H, Fishbone Vital Signs/I&O Vital Signs Date Time Temp Pulse Resp B/P (MAP) Pulse Ox O2 Delivery O2 Flow Rate FiO2 08/11/20 16:00 97.7 85 16 134/63 (86) 98 Room Air 08/11/20 04:00 1.0 I&O- Last 24 Hours up to 6 AM 08/11/20 06:00 Intake Total 2292 ml Output Total 825 ml Balance 1467 ml Laboratory Data 24H LABS Laboratory Tests 2 08/11/20 02:18: Bedside Glucose (Misc Panel) 182H 08/11/20 05:59: Nucleated Red Blood Cells % (auto) 0.2H, Anion Gap 9, Glomerular Filtration Rate > 60.0, Calcium Level 7.3L 08/11/20 06:32: Bedside Glucose (Misc Panel) 180H 08/11/20 12:18: Bedside Glucose (Misc Panel) 229H 08/11/20 16:52: Bedside Glucose (Misc Panel) 271H CBC/BMP Laboratory Tests 08/11/20 05:59 Microbiology Microbiology 08/08/20 Occult Blood - Final, Complete 08/05/20 Blood Culture - Final, Complete NO GROWTH AFTER 5 DAYS ALLEGRA WILL DO Aug 11, 2020 20:12
[2020-08-11] MEDS: methylPREDNISolone 40MG 1ML VIAL IV SCH (21:56)
[2020-08-11] MEDS: diphenhydrAMINE 50MG/ML VIAL (J1200) IV PRN (21:56)
[2020-08-11] MEDS ORDERED: ACETAMINOPHEN TAB 650MG DOSE (2X325MG) PO PRN (23:15)
[2020-08-12] VITALS (17 sets, daily range): BP systolic 112–165; BP diastolic 53–74; O2SAT 95–100
[2020-08-12] MEDS: IPRATROPIUM 0.5MG/ALBUTEROL 2.5MG INH SOL UD 3ML (DUONEB) NEB SCH ×7 (00:15→23:24)
[2020-08-12] MEDS: HumaLOG INSULIN (NovoLOG) PER UNIT SC SCH ×5 (01:26→20:48)
[2020-08-12] MEDS ORDERED: ACETAMINOPHEN TAB 650MG DOSE (2X325MG) NG PRN (01:45)
[2020-08-12] MEDS: DICLOFENAC EPOLAMINE 1.3 % PATCH TOP SCH ×2 (02:34→14:15)
[2020-08-12] MEDS: PIPERACILLIN/TAZOBACTAM SOD 3.375 GM in D5W MINI-BAG PLUS 50 ML IV SCH ×2 (03:07→08:49)
[2020-08-12] MEDS: SODIUM CHLORIDE 0.9% INJ 10 ML SYR IV SCH ×3 (06:01→21:36)
[2020-08-12 06:10] LABS: HEMATOCRIT 31.4 % (36.0-47.0); HEMOGLOBIN 10.1 g/dl (12.0-15.5); MEAN CORPUSCULAR HEMOGLOBIN 30.4 pg (27.0-33.0); MEAN CORPUSCULAR HGB CONC 32.2 g/dl (32.0-36.5); MEAN CORPUSCULAR VOLUME 94.6 fl (80.0-96.0); PLATELET COUNT, AUTOMATED 186 10^3/uL (150-450); RED BLOOD COUNT 3.32 10^6/uL (4.00-5.40); WHITE BLOOD COUNT 16.8 10^3/uL (4.0-10.0)
[2020-08-12 06:28] LABS: BLOOD UREA NITROGEN 22 MG/DL (7-18); CALCIUM LEVEL 7.3 MG/DL (8.8-10.2); CARBON DIOXIDE LEVEL 24 MEQ/L (21-32); CHLORIDE LEVEL 114 MEQ/L (98-107); CREATININE FOR GFR 0.69 MG/DL (0.55-1.30); GLOMERULAR FILTRATION RATE > 60.0 (>39); GLUCOSE, FASTING 158 MG/DL (70-100); POTASSIUM SERUM 3.9 MEQ/L (3.5-5.1); SODIUM LEVEL 143 MEQ/L (136-145)
[2020-08-12] MEDS: SYMBICORT 160/4.5MCG INHALER 6GM INH SCH ×2 (07:07→19:51)
--- NOTE | 2020-08-12 08:14 | IPNPDOC ---
Text Note Date of Service The patient was seen on 08/12/20. NOTE No acute events overnight. Denies nausea, emesis, or abd pains. She is passing lots of flatus, and has had multiple BMs since yesterday. I clamped the NG yesterday afternoon and she is tolerating that clamped as well. No complaints. VSSAF NAD abd - soft, ND, NT labs - below xray - abd xray this AM was reviewed with the radiologist. There is significant improvement in the obstruction and there is lots of stool left in the colon as well. A) 75y/o female with COPD exacerbation and mechanical SBO likeley secondary to pelvic adhesions that is resolved P) dc ng clq diet laxatives BID OOB to chair ambulate Dennis Blanco DO VS,Eun, I+O VS, Eun, I+O Laboratory Tests 08/12/20 05:48 08/12/20 05:50 Vital Signs Date Time Temp Pulse Resp B/P (MAP) Pulse Ox O2 Delivery O2 Flow Rate FiO2 08/12/20 07:00 99 Room Air 08/12/20 04:00 97.9 82 18 112/53 (72) 08/11/20 04:00 1.0 I&O- Last 24 Hours up to 6 AM 08/12/20 06:00 Intake Total 909 ml Output Total 975 ml Balance -66 ml JAVED BLANCO DO Aug 12, 2020 08:14
[2020-08-12 08:23] LABS: ALBUMIN 1.9 GM/DL (3.2-5.2)
--- NOTE | 2020-08-12 08:39 | REPVR ---
PROCEDURE INFORMATION: Exam: XR Abdomen, 2 Views Exam date and time: 08/12/2020 8:06 AM Age: 75 years old Clinical indication: Small bowel obstruction; Additional info: 6AM FRI please. It will determine if she has surgery. TECHNIQUE: Imaging protocol: XR of the abdomen. Views: 2 Views. COMPARISON: CR Abdomen, Flat-Upright PA CHEST 08/09/2020 8:33 AM FINDINGS: Tubes, catheters and devices: ECG leads/contacts overlie and partially obscure the anatomy. Transesophageal enteric tube courses over the abdominal left upper quadrant and its tip and side port terminate at the expected location of the stomach. Gastrointestinal tract: Gas is present within the stomach, small bowel, colon and rectum. The previously seen abnormal diffuse small bowel gaseous distension is markedly improved compared to 08/09/2020. Some mildly distended gas-filled small bowel loops present within the bilateral abdomen persist though are significantly decreased in size compared to 08/09/2020. Moderate rectal stool burden. Small descending colonic stool burden. Intraperitoneal space: Evaluation for pneumoperitoneum is limited given the cross-table lateral technique. No pneumoperitoneum is identified. Organs: Gallstone redemonstrated at the abdominal right upper quadrant. Vasculature: Widespread atherosclerotic calcifications redemonstrated. Bones/joints: The bones appear diffusely demineralized. Old bilateral rib fractures redemonstrated. IMPRESSION: Findings consistent with resolving small bowel obstruction. The small bowel gaseous distention is markedly improved compared to 08/09/2020. Some mildly dilated small bowel loops persist. Electronically signed by: Earl Caban On 08/12/2020 08:39:51 AM
[2020-08-12] MEDS: methylPREDNISolone 40MG 1ML VIAL IV SCH ×2 (08:48→20:49)
[2020-08-12] MEDS: NICOTINE 14 MG/24 HR TRANSDERMAL TD SCH (08:48)
[2020-08-12] MEDS: PANTOPRAZOLE 40MG VIAL (C9113 PER 1) IV SCH ×2 (08:48→20:49)
[2020-08-12] MEDS: NS 1,000 ML IV SCH ×2 (08:50→22:30)
[2020-08-12] MEDS: MIRALAX *UNIT DOSE* 17GM PACKET PO SCH ×2 (10:18→20:49)
--- NOTE | 2020-08-12 16:42 | IPNPDOC ---
Subjective Date Seen The patient was seen on 08/12/20. Subjective Chief Complaint/HPI Mrs. Solano is a 75 year old female with adrenal insufficiency, COPD, and arthritis here with with low back pain, dyspnea 2/2 COPD exacerbation, and small bowel obstruction. Yesterday morning, she had multiple bowel movements. NGT was clamped and she did well. Today, she went for KUB which shows improvement in SBO. Surgery removed NGT and tried her on diet this afternoon. When I saw patient in the morning, she still had dyspnea, but improved. Denies any fever/chills, chest pain, abdominal pain, or dysuria. Constitutional: Denies: Chills, Fever Pulmonary: Reports: Dyspnea Cardiovascular: Denies: Chest Pain Gastrointestinal: Denies: Abdominal Pain Genitourinary: Denies: Dysuria Objective Physical Examination General Exam: Positive: Alert, Cooperative, Mild Distress Eye Exam: Positive: EOMI; Negative: Sclera icteric ENT Exam: Positive: Atraumatic, Mucous membr. moist/pink Neck Exam: Positive: Supple Chest Exam: Positive: Clear to auscultation Heart Exam: Positive: Rate Normal Abdomen Exam: Positive: Normal bowel sounds, Soft; Negative: Tenderness Extremity Exam: Positive: Swelling (bilateral pitting edema) Neuro Exam: Positive: Cranial Nerves 3-12 NL Psych Exam: Positive: Mental status NL, Mood NL Assessment /Plan Assessment Mrs. Solano is a 75 year old female with COPD, here with COPD exacerbation, aspiration pneumonia, acute anemia requiring transfusions, and SBO. Initially, she has wheezing, new productive cough, and desaturation with ambulation. During her hospitalization, she's had 5 days of antibiotics. Steroids were quickly tapered, but developed N/V. Initially thought it was secondary to fast tapering in the setting of adrenal insufficiency. She was not getting better and found to have aspiration pneumonia and acute anemia. Anticoagulation was held, central line placed due to poor access and inability to get a PICC. She was placed on Vancomycin and Zosyn since she was previously on Ceftriaxone for 5 days. She r esponded appropriately to blood transfusion. Following that, she continue to have periodic nausea. CT abd/pelvis demonstrated acute urinary retention and SBO. General surgery consulted. NGT was placed. Over time, she improved and had multiple bowel movements. NGT removed and tried on clear liquid diet today. No surgery was performed as of yet. She will need rehab by the end of this admission Plan/VTE VTE Prophylaxis Ordered?: Yes Plan 1. SBO - High grade SBO with transition point in the right lower quadrant - 3rd time per family - General surgery following, recommendations appreciated - NPO, NGT, IVF, and POC glucose q6hrs - Lactic acid 1.2 - No surgery. NGT clamped and did well. NGT removed. Had multiple bowel movements - On clear liquid diet and laxative BID. - Patient should ambulate and sit up in chair to help with BM. 2. Acute urinary retention - On CT abd/pelvis, had about 900mL - Patton catheter 3. COPD exacerbation - Initially came in with COPD exacerbation, but now resolved - Had 5 days of ceftriaxone/cefdinir and azithromycin. Developed aspiration pneumonia afterwards - Continue duonebs and inhalers - Weaning down steroids. Chronically on Hydrocortisone 20mg BID for adrenal insufficiency. 4. Left lower lobe pneumonia Seen on chest x-ray from 08/05/2020 Was not on previous chest x-rays. She was on antibiotics for 5 days prior May be secondary to aspiration from emesis Concern for multidrug resistant organisms. We'll place patient on vancomycin (discontinued due to low procalcitonin) and Zosyn. - MRSA screen positive - Procalcitonin low. Possibly not a pneumonia. Discontinued Vancomycin today. Z osyn discontinued today 5. Acute Anemia - Transfused 2u pRBC, responded appropriately (08/05 into 08/06) - Transfused another 2u pRBC, responded appropriately (08/10 into 08/11) - Hemoglobin stable, continue to monitor Continue trending CBC. Holding Eliquis 6. Atrial fibrillation/SVT - AC held due to anemia - Spoke with pharmacy about amiodarone. No need to convert to IV due to long half life - Holding diltiazem for now 7. Diastolic CHF - Appears to be compensated. Holding Lasix due to PNA/Sepsis Echocardiogram demonstrates preserved EF with a grade 1 diastolic dysfunction. 8. DM - Will hold metformin and put on sliding scale insulin. POC glucose q6h Holding Levemir due to NPO status 9. Upper back pain - CT thoracic spine demonstrates T3 insufficiency fracture - Will need to follow up outpatient with spine surgeon 10. Adrenal insufficiency - We will hold the hydrocortisone since she will be receiving IV steroids. Plan to taper back to home hydrocortisone dosages. Continue IV steroids for now 11. Anxiety - Hold buspirone. NPO 12. Debility - PT/OT ordered and recommendations appreciated 13. Insomnia Steroid induced insomnia Monitor at this time 14. Paresthesias in hands Chronic, improved with wearing gloves Told patient it was okay to wear gloves while in hospital 15 DVT ppx - AC held due to acute anemia. SCD and TEDs If continues to do well with clear liquid diet, can start transitioning her back to oral medication tomorrow VS, I&O, 24H, Fishbone Vital Signs/I&O Vital Signs Date Time Temp Pulse Resp B/P (MAP) Pulse Ox O2 Delivery O2 Flow Rate FiO2 08/12/20 12:00 98.9 92 17 165/74 (104) 99 Nasal Cannula 1.0 I&O- Last 24 Hours up to 6 AM 08/12/20 06:00 Intake Total 909 ml Output Total 975 ml Balance -66 ml Laboratory Data 24H LABS Laboratory Tests 2 08/11/20 16:52: Bedside Glucose (Misc Panel) 271H 08/12/20 01:01: Bedside Glucose (Misc Panel) 187H 08/12/20 05:44: Bedside Glucose (Misc Panel) 146H 08/12/20 05:48: Nucleated Red Blood Cells % (auto) 0.1H 08/12/20 05:50: Anion Gap 5L, Glomerular Filtration Rate > 60.0, Calcium Level 7.3L, Albumin 1.9L 08/12/20 11:51: Bedside Glucose (Misc Panel) 228H CBC/BMP Laboratory Tests 08/12/20 05:48 08/12/20 05:50 Microbiology Microbiology 08/08/20 Occult Blood - Final, Complete 08/05/20 Blood Culture - Final, Complete NO GROWTH AFTER 5 DAYS ALLEGRA WILL DO Aug 12, 2020 16:42
[2020-08-12] MEDS: diphenhydrAMINE 50MG/ML VIAL (J1200) IV PRN (22:30)
[2020-08-13] VITALS (15 sets, daily range): BP systolic 111–142; BP diastolic 30–63; O2SAT 96–99
[2020-08-13] MEDS: DICLOFENAC EPOLAMINE 1.3 % PATCH TOP SCH ×2 (03:43→14:23)
[2020-08-13] MEDS: CHLORASEPTIC SPRAY MT PRN (03:46)
[2020-08-13] MEDS: ACETAMINOPHEN TAB 650MG DOSE (2X325MG) PO PRN ×2 (04:00→21:23)
[2020-08-13] MEDS: IPRATROPIUM 0.5MG/ALBUTEROL 2.5MG INH SOL UD 3ML (DUONEB) NEB SCH ×5 (04:13→19:45)
[2020-08-13] MEDS: SODIUM CHLORIDE 0.9% INJ 10 ML SYR IV SCH ×3 (05:57→21:26)
[2020-08-13 06:17] LABS: MEAN CORPUSCULAR HEMOGLOBIN 30.1 pg (27.0-33.0); MEAN CORPUSCULAR HGB CONC 31.3 g/dl (32.0-36.5); MEAN CORPUSCULAR VOLUME 96.4 fl (80.0-96.0); PLATELET COUNT, AUTOMATED 161 10^3/uL (150-450); RED BLOOD COUNT 3.32 10^6/uL (4.00-5.40); WHITE BLOOD COUNT 15.7 10^3/uL (4.0-10.0)
[2020-08-13 06:49] LABS: BLOOD UREA NITROGEN 15 MG/DL (7-18); CALCIUM LEVEL 7.4 MG/DL (8.8-10.2); CARBON DIOXIDE LEVEL 23 MEQ/L (21-32); CHLORIDE LEVEL 113 MEQ/L (98-107); CREATININE FOR GFR 0.46 MG/DL (0.55-1.30); GLOMERULAR FILTRATION RATE > 60.0 (>39); GLUCOSE, FASTING 220 MG/DL (70-100); POTASSIUM SERUM 3.6 MEQ/L (3.5-5.1); SODIUM LEVEL 142 MEQ/L (136-145)
[2020-08-13] MEDS: SYMBICORT 160/4.5MCG INHALER 6GM INH SCH ×2 (07:08→19:45)
[2020-08-13] MEDS: MIRALAX *UNIT DOSE* 17GM PACKET PO SCH ×2 (08:38→21:30)
[2020-08-13] MEDS: methylPREDNISolone 40MG 1ML VIAL IV SCH (08:38)
[2020-08-13] MEDS: HumaLOG INSULIN (NovoLOG) PER UNIT SC SCH ×4 (08:38→21:00)
[2020-08-13] MEDS: PANTOPRAZOLE 40MG VIAL (C9113 PER 1) IV SCH (08:38)
[2020-08-13] MEDS: NICOTINE 14 MG/24 HR TRANSDERMAL TD SCH (08:39)
[2020-08-13] MEDS: NS 1,000 ML IV SCH (08:46)
[2020-08-13] MEDS: busPIRone 5 MG TAB PO SCH ×2 (11:55→21:23)
[2020-08-13] MEDS: FLUTICASONE PROP 0.05% NASAL SPRAY 16 GM (FLONASE) NARES SCH (11:55)
[2020-08-13] MEDS: ASPIRIN 81 MG CHEW TABLET PO SCH (11:55)
--- NOTE | 2020-08-13 14:30 | IPNPDOC ---
Subjective Date Seen The patient was seen on 08/13/20. Subjective Chief Complaint/HPI Mrs. Solano is a 75 year old female with adrenal insufficiency, COPD, and arthritis here with with low back pain, dyspnea 2/2 COPD exacerbation, and small bowel obstruction. She has tolerated a clear liquid diet for two days. Reached out to general surgery. Okay with advancing diet. Otherwise, this morning, she denies abdominal pain and nausea. Still has dyspnea, but better. Denies fever/chills, chest pain, or dysuria. Constitutional: Denies: Chills, Fever Pulmonary: Reports: Dyspnea Cardiovascular: Denies: Chest Pain Gastrointestinal: Denies: Nausea, Abdominal Pain Genitourinary: Denies: Dysuria Objective Physical Examination General Exam: Positive: Alert, Cooperative, Mild Distress Eye Exam: Positive: EOMI; Negative: Sclera icteric ENT Exam: Positive: Atraumatic, Mucous membr. moist/pink Neck Exam: Positive: Supple Chest Exam: Positive: Clear to auscultation Heart Exam: Positive: Rate Normal Abdomen Exam: Positive: Normal bowel sounds, Soft; Negative: Tenderness Extremity Exam: Positive: Swelling (bilateral pitting edema) Neuro Exam: Positive: Cranial Nerves 3-12 NL Psych Exam: Positive: Mental status NL, Mood NL Assessment /Plan Assessment Mrs. Solano is a 75 year old female with COPD, here with COPD exacerbation, aspiration pneumonia, acute anemia requiring transfusions, and SBO. Initially, she has wheezing, new productive cough, and desaturation with ambulation. During her hospitalization, she's had 5 days of antibiotics. Steroids were quickly tapered, but developed N/V. Initially thought it was secondary to fast tapering in the setting of adrenal insufficiency. She was not getting better and found to have aspiration pneumonia and acute anemia. Anticoagulation was held, central line placed due to poor access and inability to get a PICC. She was placed on Vancomycin and Zosyn since she was previously on Ceftriaxone for 5 days. She responded appropriately to blood transfusion. Following that, she continue to have periodic nausea. CT abd/pelvis demonstrated acute urinary retention and SBO. General surgery consulted. NGT was placed. Over time, she improved and had multiple bowel movements. NGT removed and diet advanced to mechanical soft. No surgery. Otherwise switching her to oral medications. She will need rehab by the end of this admission Plan/VTE VTE Prophylaxis Ordered?: Yes Plan 1. SBO - High grade SBO with transition point in the right lower quadrant - 3rd time per family - General surgery following, recommendations appreciated - NPO, NGT, IVF, and POC glucose q6hrs - Lactic acid 1.2 - No surgery. NGT clamped and did well. NGT removed. Had multiple bowel movements - Advanced diet to mechanical soft - Laxative BID. - Patient should ambulate and sit up in chair to help with BM. 2. Acute urinary retention - On CT abd/pelvis, had about 900mL - Patton catheter 3. COPD exacerbation - Initially came in with COPD exacerbation, but now resolved - Had 5 days of ceftriaxone/cefdinir and azithromycin. Developed aspiration pneumonia afterwards - Continue duonebs and inhalers - Weaning down steroids. Chronically on Hydrocortisone 20mg BID for adrenal insufficiency. 4. Left lower lobe pneumonia Seen on chest x-ray from 08/05/2020 Was not on previous chest x-rays. She was on antibiotics for 5 days prior May be secondary to aspiration from emesis Concern for multidrug resistant organisms. We'll place patient on vancomycin (discontinued due to low procalcitonin) and Zosyn (discontinued as she has completed a 7 day course) - MRSA screen positive - Procalcitonin low. Possibly not a pneumonia. 5. Acute Anemia - Transfused 2u pRBC, responded appropriately (08/05 into 08/06) - Transfused another 2u pRBC, responded appropriately (08/10 into 08/11) - Hemoglobin stable, continue to monitor Continue trending CBC. Holding Eliquis 6. Atrial fibrillation/SVT - AC held due to anemia - Restarted amiodarone three times a week (MWF) and diltiazem 7. Diastolic CHF - Appears to be compensated. Holding Lasix due to PNA/Sepsis Echocardiogram demonstrates preserved EF with a grade 1 diastolic dysfunction. 8. DM - Will hold metformin and put on sliding scale insulin. POC glucose qAC and HS Holding Levemir today. As she eats more will consider restarting Levemir 9. Upper back pain - CT thoracic spine demonstrates T3 insufficiency fracture - Will need to follow up outpatient with spine surgeon 10. Adrenal insufficiency - We will hold the hydrocortisone since she will be receiving IV steroids. Plan to taper back to home hydrocortisone dosages. - Transitioned from IV solumedrol to PO prednisone. Will need to transition from PO prednisone to PO hydrocortisone 11. Anxiety - Restarted buspirone 12. Debility - PT/OT ordered and recommendations appreciated 13. Insomnia Steroid induced insomnia vs RLS Restarted Ropinirole 14. Restless leg syndrome -Restarted Ropinirole 15. Paresthesias in hands Chronic, improved with wearing gloves Told patient it was okay to wear gloves while in hospital 16. DVT ppx - AC held due to acute anemia. SCD and TEDs Disposition: If she tolerates her diet and her hemoglobin maintains over weekend, she may be ready for rehab on Saturday VS, I&O, 24H, Fishbone Vital Signs/I&O Vital Signs Date Time Temp Pulse Resp B/P (MAP) Pulse Ox O2 Delivery O2 Flow Rate FiO2 08/13/20 12:00 98 Nasal Cannula 1.0 08/13/20 12:00 97.6 77 18 140/63 (88) I&O- Last 24 Hours up to 6 AM 08/13/20 06:00 Intake Total 650 ml Output Total 650 ml Balance 0 ml Laboratory Data 24H LABS Laboratory Tests 2 08/12/20 17:50: Bedside Glucose (Misc Panel) 239H 08/12/20 20:20: Bedside Glucose (Misc Panel) 201H 08/13/20 05:40: Nucleated Red Blood Cells % (auto) 0.0, Anion Gap 6L, Glomerular Filtration Rate > 60.0, Calcium Level 7.4L 08/13/20 11:28: Bedside Glucose (Misc Panel) 162H CBC/BMP Laboratory Tests 08/13/20 05:40 Microbiology Microbiology 08/08/20 Occult Blood - Final, Complete 08/05/20 Blood Culture - Final, Complete NO GROWTH AFTER 5 DAYS ALLEGRA WILL DO Aug 13, 2020 14:30
[2020-08-13] MEDS: FUROSEMIDE 40 MG TAB PO SCH (16:26)
[2020-08-13] MEDS: LEVEMIR (INSULIN DETEMIR) 1 UNITS/0.01ML SC SCH (21:22)
[2020-08-13] MEDS: predniSONE 20 MG TAB PO SCH (21:23)
[2020-08-13] MEDS: rOPINIRole 1MG TAB PO SCH (21:24)
[2020-08-13] MEDS: PANTOPRAZOLE 40MG TAB (PROTONIX) PO SCH (21:25)
[2020-08-14] VITALS (9 sets, daily range): BP systolic 108–121; BP diastolic 56–58; O2SAT 97–100
[2020-08-14] MEDS: IPRATROPIUM 0.5MG/ALBUTEROL 2.5MG INH SOL UD 3ML (DUONEB) NEB SCH ×4 (00:08→11:22)
[2020-08-14] MEDS ORDERED: diphenhydrAMINE 50MG/ML VIAL (J1200) IV PRN (00:30)
[2020-08-14] MEDS: DICLOFENAC EPOLAMINE 1.3 % PATCH TOP SCH ×2 (03:41→14:11)
[2020-08-14] MEDS: CHLORASEPTIC SPRAY MT PRN ×2 (03:49→08:37)
[2020-08-14] MEDS: SODIUM CHLORIDE 0.9% INJ 10 ML SYR IV SCH ×3 (06:51→20:51)
[2020-08-14 07:10] LABS: HEMATOCRIT 30.4 % (36.0-47.0); HEMOGLOBIN 9.5 g/dl (12.0-15.5); MEAN CORPUSCULAR HEMOGLOBIN 30.3 pg (27.0-33.0); MEAN CORPUSCULAR HGB CONC 31.3 g/dl (32.0-36.5); MEAN CORPUSCULAR VOLUME 96.8 fl (80.0-96.0); PLATELET COUNT, AUTOMATED 159 10^3/uL (150-450); RED BLOOD COUNT 3.14 10^6/uL (4.00-5.40); WHITE BLOOD COUNT 16.2 10^3/uL (4.0-10.0)
[2020-08-14] MEDS: SYMBICORT 160/4.5MCG INHALER 6GM INH SCH ×2 (07:25→20:11)
[2020-08-14 07:30] LABS: BLOOD UREA NITROGEN 14 MG/DL (7-18); CALCIUM LEVEL 7.7 MG/DL (8.8-10.2); CARBON DIOXIDE LEVEL 25 MEQ/L (21-32); CHLORIDE LEVEL 112 MEQ/L (98-107); CREATININE FOR GFR 0.54 MG/DL (0.55-1.30); GLOMERULAR FILTRATION RATE > 60.0 (>39); GLUCOSE, FASTING 136 MG/DL (70-100); POTASSIUM SERUM 3.4 MEQ/L (3.5-5.1); SODIUM LEVEL 143 MEQ/L (136-145)
[2020-08-14] MEDS: FUROSEMIDE 40 MG TAB PO SCH (08:29)
[2020-08-14] MEDS: PANTOPRAZOLE 40MG TAB (PROTONIX) PO SCH ×2 (08:29→20:56)
[2020-08-14] MEDS: ASPIRIN 81 MG CHEW TABLET PO SCH (08:30)
[2020-08-14] MEDS: predniSONE 20 MG TAB PO SCH (08:30)
[2020-08-14] MEDS: busPIRone 5 MG TAB PO SCH ×2 (08:30→20:56)
[2020-08-14] MEDS: HumaLOG INSULIN (NovoLOG) PER UNIT SC SCH ×4 (08:31→20:52)
[2020-08-14] MEDS: NICOTINE 14 MG/24 HR TRANSDERMAL TD SCH (08:31)
[2020-08-14] MEDS: MIRALAX *UNIT DOSE* 17GM PACKET PO SCH ×2 (08:31→20:53)
[2020-08-14] MEDS: FLUTICASONE PROP 0.05% NASAL SPRAY 16 GM (FLONASE) NARES SCH (08:32)
[2020-08-14] MEDS ORDERED: ALBUTEROL SULFATE 2.5 MG/0.5 ML INH NEB SOLN NEB PRN (11:45)
[2020-08-14] MEDS: SENNA 8.6 MG TAB (SENOKOT) PO SCH (12:29)
--- NOTE | 2020-08-14 12:42 | IPNPDOC ---
Subjective Date Seen The patient was seen on 08/14/20. Subjective Chief Complaint/HPI Mrs. Solano is a 75 year old female with adrenal insufficiency, COPD, and arthritis here with with low back pain, dyspnea 2/2 COPD exacerbation, and small bowel obstruction. She is currently tolerating a solid diet. She has not had a bowel movement since August 12 (2 days ago). Denies nausea or abdominal pain. Denies fever or chills, chest pain, or dysuria. She has chronic dyspnea. Constitutional: Denies: Chills, Fever Pulmonary: Reports: Dyspnea (chronic) Cardiovascular: Denies: Chest Pain Gastrointestinal: Reports: Constipation; Denies: Nausea, Abdominal Pain Genitourinary: Denies: Dysuria Objective Physical Examination General Exam: Positive: Alert, Cooperative, Mild Distress Eye Exam: Positive: EOMI; Negative: Sclera icteric ENT Exam: Positive: Atraumatic, Mucous membr. moist/pink Neck Exam: Positive: Supple Chest Exam: Positive: Clear to auscultation Heart Exam: Positive: Rate Normal Abdomen Exam: Positive: Normal bowel sounds, Soft; Negative: Tenderness Extremity Exam: Positive: Swelling (bilateral pitting edema) Neuro Exam: Positive: Cranial Nerves 3-12 NL Psych Exam: Positive: Mental status NL, Mood NL Assessment /Plan Assessment Mrs. Solano is a 75 year old female with COPD, here with COPD exacerbation, aspiration pneumonia, acute anemia requiring transfusions, and SBO. Initially, she has wheezing, new productive cough, and desaturation with ambulation. During her hospitalization, she's had 5 days of antibiotics. Steroids were quickly tapered, but developed N/V. Initially thought it was secondary to fast tapering in the setting of adrenal insufficiency. She was not getting better and found to have aspiration pneumonia and acute anemia. Anticoagulation was held, central line placed due to poor access and inability to get a PICC. She was placed on Vancomycin and Zosyn since she was previously on Ceftriaxone for 5 days. She responded appropriately to blood transfusion. Following that, she continue to have periodic nausea. CT abd/pelvis demonstrated acute urinary retention and SBO. General surgery consulted. NGT was placed. Over time, she improved and had multiple bowel movements. NGT removed and diet advanced to regular diet. No surgery. She will need rehab by the end of this admission Today, I tapered her steroids down to prednisone 10mg BID (equivalent to hydrocortisone 40mg BID). Tomorrow, she can be switched to hydrocortisone 20mg BID. She is chronically on hydrocortisone 20mg BID. Also, I switch her from duonebs q4h scheduled and PRN to a LAMA and PRN albuterol as her COPD exacerbation has resolved. She will be on triple therapy (ICS/LABA and LAMA plus PRN CECILIA). She has not had a bowel movement since Aug 12 (two days ago). Increased bowel regimen to include senna. If she can have regular BM, she would be medical ready to go to rehab. Plan/VTE VTE Prophylaxis Ordered?: Yes Plan 1. SBO - High grade SBO with transition point in the right lower quadrant. Lactic acid 1.2 - 3rd time per family - General surgery following, recommendations appreciated - Resolved with NGT. - Monitor BM, no BM since Aug 12 - Continue Miralax BID. Added Senna today (first dose now and daily) 2. Acute urinary retention - On CT abd/pelvis, had about 900mL - Patton catheter 3. COPD exacerbation - Initially came in with COPD exacerbation, but now resolved - Had 5 days of ceftriaxone/cefdinir and azithromycin. Developed aspiration pneumonia afterwards and was put on vancomycin and zosyn for 7 days - Switch back to long acting inhalers. She can go back to [facility] on discharge - Weaning down steroids. Chronically on Hydrocortisone 20mg BID for adrenal insufficiency. Can go back on Hydrocortisone 20mg BID tomorrow. 4. Left lower lobe pneumonia Seen on chest x-ray from 08/05/2020 Was not on previous chest x-rays. She was on antibiotics for 5 days prior May be secondary to aspiration from emesis Concern for multidrug resistant organisms. We'll place patient on vancomycin (discontinued due to low procalcitonin) and Zosyn (discontinued as she has completed a 7 day course) - MRSA screen positive - Procalcitonin low. Possibly not a pneumonia. 5. Acute Anemia - Transfused 2u pRBC, responded appropriately (08/05 into 08/06) - Transfused another 2u pRBC, responded appropriately (08/10 into 08/11) - Hemoglobin stable, continue to monitor Continue trending CBC. Holding Eliquis at this time 6. Atrial fibrillation/SVT - AC held due to anemia - Restarted amiodarone three times a week (MWF) and diltiazem 7. Diastolic CHF - Appears to be compensated. Holding Lasix due to PNA/Sepsis Echocardiogram demonstrates preserved EF with a grade 1 diastolic dysfunction. 8. DM - Will hold metformin and put on sliding scale insulin. POC glucose qAC and HS Holding Levemir today. As she eats more will consider restarting Levemir 9. Upper back pain - CT thoracic spine demonstrates T3 insufficiency fracture - Will need to follow up outpatient with spine surgeon 10. Adrenal insufficiency - We will hold the hydrocortisone since she will be receiving IV steroids. Plan to taper back to home hydrocortisone dosages. - Tomorrow can transition from PO Prednisone to Hydrocortisone 20mg BID 11. Anxiety - Restarted buspirone 12. Debility - PT/OT ordered and recommendations appreciated 13. Insomnia Steroid induced insomnia vs RLS -Restarted Trazodone today 14. Restless leg syndrome -Continue Ropinirole 15. Paresthesias in hands Chronic, improved with wearing gloves Told patient it was okay to wear gloves while in hospital 16. Oral thrush -Restarted nystatin swish and swallow -Needs to rinse mouth after using inhalers and nebulizer 17. DVT ppx - AC held due to acute anemia. SCD and TEDs Disposition: Tomorrow, she can switch from prednisone to hydrocortisone 20mg BID. It is concerning she has not yet had a bowel movement in the past 2 days. If this continues despite escalating laxatives, may need to re-evaluate for SBO. VS, I&O, 24H, Fishbone Vital Signs/I&O Vital Signs Date Time Temp Pulse Resp B/P (MAP) Pulse Ox O2 Delivery O2 Flow Rate FiO2 08/14/20 08:30 74 114/57 08/14/20 08:00 1.0 08/14/20 08:00 99.5 18 96 Nasal Cannula I&O- Last 24 Hours up to 6 AM 08/14/20 06:00 Intake Total 1302 ml Output Total 1750 ml Balance -448 ml Laboratory Data 24H LABS Laboratory Tests 2 08/13/20 16:29: Bedside Glucose (Misc Panel) 175H 08/13/20 20:59: Bedside Glucose (Misc Panel) 205H 08/14/20 06:00: Nucleated Red Blood Cells % (auto) 0.0, Anion Gap 6L, Glomerular Filtration Rate > 60.0, Calcium Level 7.7L 08/14/20 11:51: Bedside Glucose (Misc Panel) 155H CBC/BMP Laboratory Tests 08/14/20 06:00 Microbiology Microbiology 08/08/20 Occult Blood - Final, Complete 08/05/20 Blood Culture - Final, Complete NO GROWTH AFTER 5 DAYS ALLEGRA WILL DO Aug 14, 2020 12:01
[2020-08-14] MEDS: TIOTROPIUM INHALER/CAPSULE (SPIRIVA) INH SCH (13:15)
[2020-08-14] MEDS: NYSTATIN 500,000 U/5 ML SUSP UDC PO SCH ×3 (14:10→20:53)
[2020-08-14] MEDS: POTASSIUM CHLORIDE 10 MEQ SR TABLET PO SCH (14:11)
[2020-08-14] MEDS: MAGIC MOUTHWASH SUSPENSION BTL SSP SCH (17:43)
[2020-08-14] MEDS: LEVEMIR (INSULIN DETEMIR) 1 UNITS/0.01ML SC SCH (20:52)
[2020-08-14] MEDS: ACETAMINOPHEN TAB 650MG DOSE (2X325MG) PO PRN (20:54)
[2020-08-14] MEDS: predniSONE 10 MG TAB PO SCH (20:56)
[2020-08-14] MEDS: traZODone 50 MG TAB PO SCH (20:56)
[2020-08-14] MEDS: rOPINIRole 1MG TAB PO SCH (21:07)
[2020-08-15] MEDS: DICLOFENAC EPOLAMINE 1.3 % PATCH TOP SCH ×2 (03:13→16:25)
[2020-08-15] MEDS: CHLORASEPTIC SPRAY MT PRN ×2 (03:13→08:43)
[2020-08-15] MEDS: ACETAMINOPHEN TAB 650MG DOSE (2X325MG) PO PRN (03:27)
[2020-08-15] MEDS: SODIUM CHLORIDE 0.9% INJ 10 ML SYR IV SCH (06:32)
[2020-08-15 06:43] LABS: HEMATOCRIT 30.5 % (36.0-47.0); HEMOGLOBIN 9.5 g/dl (12.0-15.5); MEAN CORPUSCULAR HEMOGLOBIN 30.1 pg (27.0-33.0); MEAN CORPUSCULAR HGB CONC 31.1 g/dl (32.0-36.5); MEAN CORPUSCULAR VOLUME 96.5 fl (80.0-96.0); PLATELET COUNT, AUTOMATED 150 10^3/uL (150-450); RED BLOOD COUNT 3.16 10^6/uL (4.00-5.40); WHITE BLOOD COUNT 16.6 10^3/uL (4.0-10.0)
[2020-08-15 07:16] LABS: BLOOD UREA NITROGEN 13 MG/DL (7-18); CALCIUM LEVEL 7.7 MG/DL (8.8-10.2); CARBON DIOXIDE LEVEL 27 MEQ/L (21-32); CHLORIDE LEVEL 111 MEQ/L (98-107); CREATININE FOR GFR 0.45 MG/DL (0.55-1.30); GLOMERULAR FILTRATION RATE > 60.0 (>39); GLUCOSE, FASTING 180 MG/DL (70-100); MAGNESIUM LEVEL 1.6 MG/DL (1.8-2.4); POTASSIUM SERUM 3.9 MEQ/L (3.5-5.1); SODIUM LEVEL 142 MEQ/L (136-145)
[2020-08-15] MEDS: SYMBICORT 160/4.5MCG INHALER 6GM INH SCH ×2 (07:24→20:16)
[2020-08-15] MEDS: TIOTROPIUM INHALER/CAPSULE (SPIRIVA) INH SCH (07:24)
[2020-08-15] MEDS: MAGIC MOUTHWASH SUSPENSION BTL SSP SCH ×3 (07:30→17:30)
[2020-08-15 08:00] VITALS: BP 136/61
[2020-08-15] MEDS ORDERED: PILL CUTTER 1 EACH XX PRN (08:15)
[2020-08-15] MEDS: HumaLOG INSULIN (NovoLOG) PER UNIT SC SCH ×4 (08:44→21:00)
[2020-08-15] MEDS: SENNA 8.6 MG TAB (SENOKOT) PO SCH (08:44)
[2020-08-15] MEDS: ASPIRIN 81 MG CHEW TABLET PO SCH (08:44)
[2020-08-15] MEDS: NYSTATIN 500,000 U/5 ML SUSP UDC PO SCH ×4 (08:44→21:28)
[2020-08-15] MEDS: PANTOPRAZOLE 40MG TAB (PROTONIX) PO SCH ×2 (08:45→21:30)
[2020-08-15] MEDS: busPIRone 5 MG TAB PO SCH ×2 (08:45→21:30)
[2020-08-15] MEDS: predniSONE 10 MG TAB PO SCH (08:45)
[2020-08-15] MEDS: AMIODARONE 200 MG TAB (PACERONE) PO SCH (08:45)
[2020-08-15] MEDS: FUROSEMIDE 40 MG TAB PO SCH (08:45)
[2020-08-15] MEDS: POTASSIUM CHLORIDE 10 MEQ SR TABLET PO SCH (08:46)
[2020-08-15] MEDS: FLUTICASONE PROP 0.05% NASAL SPRAY 16 GM (FLONASE) NARES SCH (08:46)
[2020-08-15] MEDS: NICOTINE 14 MG/24 HR TRANSDERMAL TD SCH (08:46)
[2020-08-15] MEDS: MIRALAX *UNIT DOSE* 17GM PACKET PO SCH ×2 (08:46→21:28)
[2020-08-15] MEDS: APIXABAN 5 MG TAB (ELIQUIS) PO SCH ×2 (09:00→21:30)
[2020-08-15] MEDS: HYDROCORTISONE 10 MG TAB PO SCH ×2 (09:00→21:30)
[2020-08-15] MEDS: CALCIUM/VITAMIN D 500 MG TAB PO SCH ×2 (09:00→21:30)
[2020-08-15] MEDS: MAGNESIUM GLUCONATE 500 MG TAB PO SCH (12:40)
--- NOTE | 2020-08-15 12:53 | IPNPDOC ---
Text Note Date of Service The patient was seen on 08/15/20. NOTE Subjective: No any acute events overnight. Patient denied fever, chills, nausea, vomiting, chest pain, palpitations. Patient had bowel movement in the morning Objective: Gen: NAD HEENT: PERRLA, EOMI Lungs: Diminished lung sounds CV: S1-S2 Abdomen: Nontender, nondistended Extremities: +1 pitting edema, no cyanosis Neuro: Nonfocal Assessment and plan Patient is 75 years old female with past history of COPD, adrenal insufficiency presented hospital with acute anemia and SBO. The patient was found to have aspiration pneumonia, she received treatment antibiotic therapy, blood transfusion. SBO Resolved Patient had large bowel movements in the morning Urinary retention Most likely secondary to constipation Will remove Patton COPD exacerbation Patient received treatment with inhalers and antibiotics Resolved Lungs clear to auscultation, no wheezes DC prednisone Continue inhalers Aspiration pneumonia/aspiration pneumonitis Completed course of antibiotics Procalcitonin negative Acute anemia Most likely secondary to GI loss Transfused 2u pRBC, responded appropriately (08/05 into 08/06) Transfused another 2u pRBC, responded appropriately (08/10 into 08/11) Hemoglobin stable Stool positive for occult blood Patient will needs colonoscopy and EGD in the outpatient settings Atrial fibrillation/SVT Rate is under control Restarted Eliquis Diastolic CHF Not in acute exacerbation Continue home cardioprotective medications Upper back pain/ compression fracture of T3/osteoporosis - CT thoracic spine demonstrates T3 insufficiency fracture Most likely secondary to osteoporosis We'll start vitamin D, calcium and alendronate Adrenal insufficiency Patient is normotensive Restarted hydrocortisone DC prednisone Anxiety buspirone Deconditioning Patient continues to complain of loss of sensitivity and paresthesia of feet most likely secondary to diabetes polyneuropathy. Patient stated that she has been having these complaints for many months No urinary or fecal incontinence Neurological exam benign PT/Ot and continue ARU after dc VS,Fishbone, I+O VS, Fishbone, I+O Laboratory Tests 08/15/20 06:24 Vital Signs Date Time Temp Pulse Resp B/P (MAP) Pulse Ox O2 Delivery O2 Flow Rate FiO2 08/15/20 08:00 98.1 71 17 136/61 (86) 99 Nasal Cannula 1.0 I&O- Last 24 Hours up to 6 AM0 08/15/20 06:00 Intake Total 960 ml Output Total 1825 ml Balance -865 ml DROZHZHIN,RAFIA DO Aug 15, 2020 12:53
[2020-08-15] MEDS: VITAMIN D 1,000 INTERNATIONAL UNITS TABLET PO SCH (16:24)
[2020-08-15 17:15] VITALS: BP 122/59
[2020-08-15] MEDS ORDERED: HYDROCORTISONE 10 MG TAB PO SCH (21:00)
[2020-08-15] MEDS: LEVEMIR (INSULIN DETEMIR) 1 UNITS/0.01ML SC SCH (21:28)
[2020-08-15] MEDS: traZODone 50 MG TAB PO SCH (21:30)
[2020-08-15] MEDS: rOPINIRole 1MG TAB PO SCH (21:30)
[2020-08-15 22:00] VITALS: BP 116/63
[2020-08-16 02:00] VITALS: BP 133/59
[2020-08-16] MEDS: DICLOFENAC EPOLAMINE 1.3 % PATCH TOP SCH ×2 (03:36→14:23)
[2020-08-16] MEDS: ACETAMINOPHEN TAB 650MG DOSE (2X325MG) PO PRN (03:40)
[2020-08-16 06:00] VITALS: BP 102/47
[2020-08-16] MEDS: HumaLOG INSULIN (NovoLOG) PER UNIT SC SCH ×4 (07:30→21:00)
[2020-08-16] MEDS: MAGIC MOUTHWASH SUSPENSION BTL SSP SCH ×4 (07:30→17:30)
[2020-08-16] MEDS: TIOTROPIUM INHALER/CAPSULE (SPIRIVA) INH SCH (07:50)
[2020-08-16] MEDS: SYMBICORT 160/4.5MCG INHALER 6GM INH SCH ×2 (07:51→19:42)
[2020-08-16] MEDS: MIRALAX *UNIT DOSE* 17GM PACKET PO SCH ×2 (08:39→21:00)
[2020-08-16] MEDS: POTASSIUM CHLORIDE 10 MEQ SR TABLET PO SCH (08:39)
[2020-08-16] MEDS: NYSTATIN 500,000 U/5 ML SUSP UDC PO SCH ×4 (08:39→22:00)
[2020-08-16] MEDS: ASPIRIN 81 MG CHEW TABLET PO SCH (08:40)
[2020-08-16] MEDS: APIXABAN 5 MG TAB (ELIQUIS) PO SCH ×2 (08:40→21:59)
[2020-08-16] MEDS: VITAMIN D 1,000 INTERNATIONAL UNITS TABLET PO SCH (08:40)
[2020-08-16] MEDS: CALCIUM/VITAMIN D 500 MG TAB PO SCH ×2 (08:40→21:59)
[2020-08-16] MEDS: PANTOPRAZOLE 40MG TAB (PROTONIX) PO SCH ×2 (08:40→22:00)
[2020-08-16] MEDS: HYDROCORTISONE 10 MG TAB PO SCH ×2 (08:40→21:59)
[2020-08-16] MEDS: NICOTINE 14 MG/24 HR TRANSDERMAL TD SCH (08:40)
[2020-08-16] MEDS: busPIRone 5 MG TAB PO SCH ×2 (08:41→21:59)
[2020-08-16] MEDS: MAGNESIUM GLUCONATE 500 MG TAB PO SCH (08:41)
[2020-08-16] MEDS: FUROSEMIDE 40 MG TAB PO SCH (08:41)
[2020-08-16] MEDS: SENNA 8.6 MG TAB (SENOKOT) PO SCH (08:41)
[2020-08-16] MEDS: FLUTICASONE PROP 0.05% NASAL SPRAY 16 GM (FLONASE) NARES SCH (09:06)
[2020-08-16 10:00] VITALS: BP 131/61
[2020-08-16 13:49] LABS: BASO % 0.1 % (0.0-1.0); EOS % 0.2 % (0.0-3.0); HEMATOCRIT 33.6 % (36.0-47.0); HEMOGLOBIN 10.5 g/dl (12.0-15.5); LYMPH # 0.3 10^3/uL (1.5-5.0); LYMPH % 1.6 % (24.0-44.0); MEAN CORPUSCULAR HGB CONC 31.3 g/dl (32.0-36.5); MONO # 0.6 10^3/uL (0.0-0.8); MONO % 3.5 % (0.0-5.0); NEUTROPHILS # 16.1 10^3/uL (1.5-8.5); PLATELET COUNT, AUTOMATED 157 10^3/uL (150-450); WHITE BLOOD COUNT 17.1 10^3/uL (4.0-10.0)
[2020-08-16 14:00] VITALS: BP 107/50
[2020-08-16 14:15] LABS: BLOOD UREA NITROGEN 16 MG/DL (7-18); CALCIUM LEVEL 8.2 MG/DL (8.8-10.2); CARBON DIOXIDE LEVEL 26 MEQ/L (21-32); CHLORIDE LEVEL 109 MEQ/L (98-107); GLOMERULAR FILTRATION RATE > 60.0 (>39); GLUCOSE, FASTING 96 MG/DL (70-100); POTASSIUM SERUM 4.2 MEQ/L (3.5-5.1); SODIUM LEVEL 142 MEQ/L (136-145)
--- NOTE | 2020-08-16 15:06 | IPNPDOC ---
Text Note Date of Service The patient was seen on 08/16/20. NOTE Subjective: No any acute events overnight. Patient denied fever, chills, nausea, vomiting, chest pain, palpitations. Patient complains of legs paresthesias and feet numbness Objective: Gen: NAD HEENT: PERRLA, EOMI Lungs: Diminished lung sounds CV: S1-S2 Abdomen: Nontender, nondistended Extremities: +1 pitting edema, no cyanosis Neuro: Nonfocal Assessment and plan Patient is 75 years old female with past history of COPD, adrenal insufficiency presented hospital with acute anemia and SBO. The patient was found to have aspiration pneumonia, she received treatment antibiotic therapy, blood transfusion. SBO Resolved Urinary retention Most likely secondary to constipation Patton was removed yesterday however patient developed urinary retention, we continue Patton COPD exacerbation Patient received treatment with inhalers and antibiotics Resolved Lungs clear to auscultation, no wheezes DC prednisone Continue inhalers Aspiration pneumonia/aspiration pneumonitis Completed course of antibiotics Procalcitonin negative Acute anemia Most likely secondary to GI loss Transfused 2u pRBC, responded appropriately (08/05 into 08/06) Transfused another 2u pRBC, responded appropriately (08/10 into 08/11) Hemoglobin stable Stool positive for occult blood Patient will needs colonoscopy and EGD in the outpatient settings Atrial fibrillation/SVT Rate is under control Restarted Eliquis Diastolic CHF Not in acute exacerbation Continue home cardioprotective medications Upper back pain/ compression fracture of T3/osteoporosis - CT thoracic spine demonstrates T3 insufficiency fracture Most likely secondary to osteoporosis We'll start vitamin D, calcium and alendronate Adrenal insufficiency Patient is normotensive Restarted hydrocortisone DC prednisone Anxiety buspirone Leukocytosis Could be secondary to steroids Patient is normotensive, afebrile We'll check UA Deconditioning Patient complains of legs paresthesias and feet numbness No urinary or fecal incontinence Neurological exam benign PT/Ot and continue ARU after dc Polyneuropathy Secondary to diabetes Patient complains of numbness of her feet and loss of sensitivity. Patient stated that she has been having these complaints for many months Gabapentin 100 mg 3 times a day VS,Fishbone, I+O VS, Fishbone, I+O Laboratory Tests 08/16/20 13:23 Vital Signs Date Time Temp Pulse Resp B/P (MAP) Pulse Ox O2 Delivery O2 Flow Rate FiO2 08/16/20 10:00 97.7 70 18 131/61 (84) 95 Room Air 08/15/20 17:15 1.0 I&O- Last 24 Hours up to 6 AM 08/16/20 06:00 Intake Total 1140 ml Output Total 2190 ml Balance -1050 ml RAFIA TREJO DO Aug 16, 2020 15:06
[2020-08-16] MEDS: LEVEMIR (INSULIN DETEMIR) 1 UNITS/0.01ML SC SCH (21:56)
[2020-08-16] MEDS: rOPINIRole 1MG TAB PO SCH (21:58)
[2020-08-16] MEDS: RAMELTEON 8 MG TAB (ROZEREM) PO SCH (21:59)
[2020-08-16 22:00] VITALS: BP 110/50
[2020-08-16] MEDS: traZODone 50 MG TAB PO SCH (22:00)
[2020-08-17 02:00] VITALS: BP 109/45
[2020-08-17] MEDS: DICLOFENAC EPOLAMINE 1.3 % PATCH TOP SCH ×2 (02:30→15:00)
[2020-08-17] MEDS: ACETAMINOPHEN TAB 650MG DOSE (2X325MG) PO PRN ×2 (02:37→21:53)
[2020-08-17 06:00] VITALS: BP 109/43
[2020-08-17] MEDS: HumaLOG INSULIN (NovoLOG) PER UNIT SC SCH ×4 (07:30→21:00)
[2020-08-17] MEDS: MAGIC MOUTHWASH SUSPENSION BTL SSP SCH ×3 (07:30→18:09)
[2020-08-17] MEDS: SYMBICORT 160/4.5MCG INHALER 6GM INH SCH ×2 (07:44→20:23)
[2020-08-17] MEDS: TIOTROPIUM INHALER/CAPSULE (SPIRIVA) INH SCH (07:45)
[2020-08-17] MEDS: FLUTICASONE PROP 0.05% NASAL SPRAY 16 GM (FLONASE) NARES SCH (09:00)
[2020-08-17] MEDS: MIRALAX *UNIT DOSE* 17GM PACKET PO SCH ×3 (09:19→21:54)
[2020-08-17] MEDS: NICOTINE 14 MG/24 HR TRANSDERMAL TD SCH (09:19)
[2020-08-17 09:20] VITALS: BP 112/85
[2020-08-17] MEDS: NYSTATIN 500,000 U/5 ML SUSP UDC PO SCH ×4 (09:20→21:53)
[2020-08-17] MEDS: ASPIRIN 81 MG CHEW TABLET PO SCH (09:23)
[2020-08-17] MEDS: HYDROCORTISONE 10 MG TAB PO SCH ×2 (09:24→21:56)
[2020-08-17] MEDS: POTASSIUM CHLORIDE 10 MEQ SR TABLET PO SCH (09:24)
[2020-08-17] MEDS: CALCIUM/VITAMIN D 500 MG TAB PO SCH ×2 (09:24→21:54)
[2020-08-17] MEDS: SENNA 8.6 MG TAB (SENOKOT) PO SCH (09:25)
[2020-08-17] MEDS: VITAMIN D 1,000 INTERNATIONAL UNITS TABLET PO SCH (09:25)
[2020-08-17] MEDS: MAGNESIUM GLUCONATE 500 MG TAB PO SCH (09:25)
[2020-08-17] MEDS: busPIRone 5 MG TAB PO SCH ×2 (09:25→21:56)
[2020-08-17] MEDS: PANTOPRAZOLE 40MG TAB (PROTONIX) PO SCH ×2 (09:25→21:54)
[2020-08-17] MEDS: APIXABAN 5 MG TAB (ELIQUIS) PO SCH ×2 (09:26→21:54)
[2020-08-17] MEDS: FUROSEMIDE 40 MG TAB PO SCH (09:26)
[2020-08-17] MEDS: AMIODARONE 200 MG TAB (PACERONE) PO SCH (09:49)
[2020-08-17 10:00] VITALS: BP 113/49
[2020-08-17 10:25] LABS: HEMATOCRIT 29.2 % (36.0-47.0); HEMOGLOBIN 9.1 g/dl (12.0-15.5); MEAN CORPUSCULAR HGB CONC 31.2 g/dl (32.0-36.5); MEAN CORPUSCULAR VOLUME 96.4 fl (80.0-96.0); PLATELET COUNT, AUTOMATED 139 10^3/uL (150-450); RED BLOOD COUNT 3.03 10^6/uL (4.00-5.40)
[2020-08-17 11:05] LABS: BLOOD UREA NITROGEN 16 MG/DL (7-18); CALCIUM LEVEL 8.1 MG/DL (8.8-10.2); CARBON DIOXIDE LEVEL 27 MEQ/L (21-32); CHLORIDE LEVEL 110 MEQ/L (98-107); CREATININE FOR GFR 0.59 MG/DL (0.55-1.30); GLOMERULAR FILTRATION RATE > 60.0 (>39); GLUCOSE, FASTING 151 MG/DL (70-100); POTASSIUM SERUM 4.1 MEQ/L (3.5-5.1); SODIUM LEVEL 142 MEQ/L (136-145)
[2020-08-17] MEDS: TAMSULOSIN 0.4 MG CAP PO SCH (15:25)
[2020-08-17 20:00] VITALS: BP 111/47
[2020-08-17] MEDS: rOPINIRole 1MG TAB PO SCH (21:54)
[2020-08-17] MEDS: traZODone 50 MG TAB PO SCH (21:54)
[2020-08-17] MEDS: LEVEMIR (INSULIN DETEMIR) 1 UNITS/0.01ML SC SCH (21:55)
[2020-08-17] MEDS: RAMELTEON 8 MG TAB (ROZEREM) PO SCH (21:56)
[2020-08-18 02:00] VITALS: BP 110/61
[2020-08-18] MEDS: DICLOFENAC EPOLAMINE 1.3 % PATCH TOP SCH ×2 (03:29→15:12)
[2020-08-18] MEDS: ACETAMINOPHEN TAB 650MG DOSE (2X325MG) PO PRN ×2 (04:00→21:32)
[2020-08-18 06:00] VITALS: BP 108/63
[2020-08-18] MEDS: TIOTROPIUM INHALER/CAPSULE (SPIRIVA) INH SCH (07:20)
[2020-08-18] MEDS: SYMBICORT 160/4.5MCG INHALER 6GM INH SCH ×2 (07:20→19:56)
[2020-08-18 09:00] VITALS: BP 98/50
[2020-08-18] MEDS: FLUTICASONE PROP 0.05% NASAL SPRAY 16 GM (FLONASE) NARES SCH (09:00)
[2020-08-18] MEDS: FUROSEMIDE 40 MG TAB PO SCH (09:00)
[2020-08-18] MEDS: HumaLOG INSULIN (NovoLOG) PER UNIT SC SCH ×4 (09:34→21:00)
[2020-08-18] MEDS: NYSTATIN 500,000 U/5 ML SUSP UDC PO SCH ×4 (09:35→21:32)
[2020-08-18] MEDS: NICOTINE 14 MG/24 HR TRANSDERMAL TD SCH (09:36)
[2020-08-18] MEDS: CALCIUM/VITAMIN D 500 MG TAB PO SCH ×2 (09:36→21:31)
[2020-08-18] MEDS: POTASSIUM CHLORIDE 10 MEQ SR TABLET PO SCH (09:37)
[2020-08-18] MEDS: HYDROCORTISONE 10 MG TAB PO SCH ×2 (09:37→21:30)
[2020-08-18] MEDS: VITAMIN D 1,000 INTERNATIONAL UNITS TABLET PO SCH (09:38)
[2020-08-18] MEDS: MAGNESIUM GLUCONATE 500 MG TAB PO SCH (09:38)
[2020-08-18] MEDS: ASPIRIN 81 MG CHEW TABLET PO SCH (09:38)
[2020-08-18] MEDS: MAGIC MOUTHWASH SUSPENSION BTL SSP SCH ×3 (09:38→17:48)
[2020-08-18] MEDS: PANTOPRAZOLE 40MG TAB (PROTONIX) PO SCH ×2 (09:39→21:32)
[2020-08-18] MEDS: TAMSULOSIN 0.4 MG CAP PO SCH (09:39)
[2020-08-18] MEDS: SENNA 8.6 MG TAB (SENOKOT) PO SCH (09:39)
[2020-08-18] MEDS: MIRALAX *UNIT DOSE* 17GM PACKET PO SCH ×2 (09:42→21:00)
[2020-08-18 10:00] VITALS: BP 101/61
[2020-08-18] MEDS: APIXABAN 5 MG TAB (ELIQUIS) PO SCH ×2 (10:13→21:32)
[2020-08-18] MEDS: busPIRone 5 MG TAB PO SCH ×2 (10:13→21:32)
[2020-08-18 13:47] LABS: BLOOD UREA NITROGEN 17 MG/DL (7-18); CALCIUM LEVEL 8.2 MG/DL (8.8-10.2); CARBON DIOXIDE LEVEL 27 MEQ/L (21-32); CHLORIDE LEVEL 110 MEQ/L (98-107); CREATININE FOR GFR 0.67 MG/DL (0.55-1.30); GLOMERULAR FILTRATION RATE > 60.0 (>39); GLUCOSE, FASTING 140 MG/DL (70-100); POTASSIUM SERUM 4.5 MEQ/L (3.5-5.1); SODIUM LEVEL 144 MEQ/L (136-145)
[2020-08-18] MEDS: rOPINIRole 1MG TAB PO SCH (21:32)
[2020-08-18] MEDS: RAMELTEON 8 MG TAB (ROZEREM) PO SCH (21:32)
[2020-08-18] MEDS: traZODone 50 MG TAB PO SCH (21:32)
[2020-08-18] MEDS: LEVEMIR (INSULIN DETEMIR) 1 UNITS/0.01ML SC SCH (21:33)
[2020-08-18 22:00] VITALS: BP 111/55
[2020-08-19] MEDS: DICLOFENAC EPOLAMINE 1.3 % PATCH TOP SCH (03:45)
[2020-08-19] MEDS: ACETAMINOPHEN TAB 650MG DOSE (2X325MG) PO PRN (03:55)
[2020-08-19 06:00] VITALS: BP 106/42
[2020-08-19 07:10] LABS: BLOOD UREA NITROGEN 17 MG/DL (7-18); CALCIUM LEVEL 8.3 MG/DL (8.8-10.2); CARBON DIOXIDE LEVEL 30 MEQ/L (21-32); CHLORIDE LEVEL 110 MEQ/L (98-107); CREATININE FOR GFR 0.45 MG/DL (0.55-1.30); GLOMERULAR FILTRATION RATE > 60.0 (>39); GLUCOSE, FASTING 111 MG/DL (70-100); POTASSIUM SERUM 4.4 MEQ/L (3.5-5.1); SODIUM LEVEL 142 MEQ/L (136-145)
[2020-08-19] MEDS: TIOTROPIUM INHALER/CAPSULE (SPIRIVA) INH SCH (07:37)
[2020-08-19] MEDS: SYMBICORT 160/4.5MCG INHALER 6GM INH SCH (07:37)
[2020-08-19] MEDS: MAGIC MOUTHWASH SUSPENSION BTL SSP SCH ×2 (08:47→12:05)
[2020-08-19] MEDS: NICOTINE 14 MG/24 HR TRANSDERMAL TD SCH (08:48)
[2020-08-19] MEDS: HumaLOG INSULIN (NovoLOG) PER UNIT SC SCH ×2 (08:48→12:00)
[2020-08-19] MEDS: NYSTATIN 500,000 U/5 ML SUSP UDC PO SCH ×2 (08:48→12:05)
[2020-08-19] MEDS: HYDROCORTISONE 10 MG TAB PO SCH (08:49)
[2020-08-19] MEDS: VITAMIN D 1,000 INTERNATIONAL UNITS TABLET PO SCH (08:49)
[2020-08-19] MEDS: CALCIUM/VITAMIN D 500 MG TAB PO SCH (08:49)
[2020-08-19] MEDS: MAGNESIUM GLUCONATE 500 MG TAB PO SCH (08:49)
[2020-08-19] MEDS: ASPIRIN 81 MG CHEW TABLET PO SCH (08:50)
[2020-08-19] MEDS: PANTOPRAZOLE 40MG TAB (PROTONIX) PO SCH (08:50)
[2020-08-19] MEDS: SENNA 8.6 MG TAB (SENOKOT) PO SCH (08:50)
[2020-08-19] MEDS: AMIODARONE 200 MG TAB (PACERONE) PO SCH (08:50)
[2020-08-19] MEDS: POTASSIUM CHLORIDE 10 MEQ SR TABLET PO SCH (08:50)
[2020-08-19 08:51] VITALS: BP 106/42
[2020-08-19] MEDS: APIXABAN 5 MG TAB (ELIQUIS) PO SCH (08:51)
[2020-08-19] MEDS: TAMSULOSIN 0.4 MG CAP PO SCH (08:51)
[2020-08-19] MEDS: busPIRone 5 MG TAB PO SCH (08:51)
[2020-08-19] MEDS: FUROSEMIDE 40 MG TAB PO SCH (08:52)
[2020-08-19] MEDS: MIRALAX *UNIT DOSE* 17GM PACKET PO SCH (08:52)
[2020-08-19] MEDS: FLUTICASONE PROP 0.05% NASAL SPRAY 16 GM (FLONASE) NARES SCH (08:56)
[2020-08-19] MEDS ORDERED: GABAPENTIN 100 MG CAP PO SCH (09:00)
[2020-08-19] MEDS ORDERED: GABA-1171 PO (10:33)
[2020-08-19] MEDS ORDERED: FLOM0.4C39 PO (11:21)
--- NOTE | 2020-08-19 13:05 | REPVR ---
PROCEDURE INFORMATION: Exam: CT Lumbar Spine Without Contrast Exam date and time: 08/19/2020 12:43 PM Age: 75 years old Clinical indication: Other: Urinary retention TECHNIQUE: Imaging protocol: Computed tomography images of the lumbar spine without contrast. Radiation optimization: All CT scans at this facility use at least one of these dose optimization techniques: automated exposure control; mA and/or kV adjustment per patient size (includes targeted exams where dose is matched to clinical indication); or iterative reconstruction. COMPARISON: No relevant prior studies available. FINDINGS: Vertebrae: There is diffuse demineralization, limiting evaluation. There is inferior endplate depression at L3 with a Schmorl's node. Normal vertebral body heights are otherwise preserved.. Discs/Spinal canal/Neural foramina: There is multilevel disc bulging. At L4/5, disc bulge and mild facet hypertrophy contribute to [id number]-[id number] bilateral neural foraminal narrowing and mild canal stenosis. At L5/S1, shallow disc bulging and katr-mh-[id number] facet hypertrophy contribute to mild to moderate right and moderate left neural foraminal narrowing. There is mild canal stenosis. Pleural space: There are small bilateral pleural effusions. Gallbladder and bile ducts: There is cholelithiasis. Stomach and bowel: There is colonic diverticulosis. Intraperitoneal space: There is a small volume of free pelvic fluid. Vasculature: There are calcific atherosclerotic changes of the abdominal aorta. Soft tissues: Unremarkable. IMPRESSION: 1. Inferior endplate depression at L3 associated with a Schmorl's node, likely chronic. 2. Degenerative disc disease and spondylosis. At L5/S1, changes contribute to mild to moderate right and moderate left neural foraminal narrowing and mild canal stenosis. Electronically signed by: Tana Kearney On 08/19/2020 13:05:20 PM
--- NOTE | 2020-08-19 17:48 | DS.PDOC ---
Discharge Summary General Date of Admission Jul 29, 2020 at 12:26 Date of Discharge 08/19/20 Discharge Summary PROCEDURES PERFORMED DURING STAY: [None]. ADMITTING DIAGNOSES: SBO Urinary retention COPD exacerbation Aspiration pneumonia/aspiration pneumonitis Acute anemia Atrial fibrillation/SVT Adrenal insufficiency Upper back pain/ compression fracture of T3/osteoporosis Diastolic CHF Anxiety Leukocytosis Deconditioning Polyneuropathy DISCHARGE DIAGNOSES: SBO Urinary retention COPD exacerbation Aspiration pneumonia/aspiration pneumonitis Acute anemia Atrial fibrillation/SVT Adrenal insufficiency Upper back pain/ compression fracture of T3/osteoporosis Diastolic CHF Anxiety Leukocytosis Deconditioning Polyneuropathy COMPLICATIONS/CHIEF COMPLAINT: Copd With Acute Exacerbation Hyperkalemia. HISTORY OF PRESENT ILLNESS: Mrs. Solano is a 75 year old female with COPD, here with COPD exacerbation, aspiration pneumonia, acute anemia requiring transfusions, and SBO. Initially, she has wheezing, new productive cough, and desaturation with ambulation. During her hospitalization, she's had 5 days of antibiotics. Steroids were quickly tapered, but developed N/V. Initially thought it was secondary to fast tapering in the setting of adrenal insufficiency. She was not getting better and found to have aspiration pneumonia and acute anemia. Anticoagulation was held, central line placed due to poor access and inability to get a PICC. She was placed on Vancomycin and Zosyn since she was previously on Ceftriaxone for 5 days. She responded appropriately to blood transfusion. Following that, she continue to have periodic nausea. CT abd/pelvis demonstrated acute urinary retention and SBO. General surgery consulted. NGT was placed. Over time, she improved and had multiple bowel movements. NGT removed and diet advanced to regular diet. HOSPITAL COURSE: During hospital stay following issues addressed SBO Resolved Urinary retention Most likely secondary to constipation patient developed urinary retention, we continue Patton COPD exacerbation Patient received treatment with inhalers and antibiotics Resolved Lungs clear to auscultation, no wheezes DC prednisone Continue inhalers Aspiration pneumonia/aspiration pneumonitis Completed course of antibiotics Procalcitonin negative Acute anemia Most likely secondary to GI loss Transfused 2u pRBC, responded appropriately (08/05 into 08/06) Transfused another 2u pRBC, responded appropriately (08/10 into 08/11) Hemoglobin stable Stool positive for occult blood Patient will needs colonoscopy and EGD in the outpatient settings Atrial fibrillation/SVT Rate is under control Restarted Eliquis Diastolic CHF Not in acute exacerbation Continue home cardioprotective medications Upper back pain/ compression fracture of T3/osteoporosis - CT thoracic spine demonstrates T3 insufficiency fracture Most likely secondary to osteoporosis vitamin D, calcium and alendronate Adrenal insufficiency Patient is normotensive Restarted hydrocortisone DC prednisone Anxiety buspirone Deconditioning Patient complains of legs paresthesias and feet numbness. Patient refused lumbar/sacral MRI. All consequences of this decision have been explained. Pt verbalizes understanding of all risks and benefits of her decision. No urinary or fecal incontinence Neurological exam benign PT/Ot and continue ARU after dc Polyneuropathy Secondary to diabetes Patient complains of numbness of her feet and loss of sensitivity. Patient stated that she has been having these complaints for many months Gabapentin 100 mg 3 times a day Patient refused lumbar/sacral MRI. All consequences of this decision have been explained. DISCHARGE MEDICATIONS: Please see below. ALLERGIES: Please see below. PHYSICAL EXAMINATION ON DISCHARGE: VITAL SIGNS: Please see below. Objective: Gen: NAD HEENT: PERRLA, EOMI Lungs: Diminished lung sounds CV: S1-S2 Abdomen: Nontender, nondistended Extremities: +1 pitting edema, no cyanosis Neuro: Nonfocal LABORATORY DATA: Please see below. IMAGING: [facility] NAME: MARCELINO SOLANO I DATE OF : 1945 BUSINESS NUMBER: [id number] AGE: 75 SEX: F REPORT #: [id number] ROOM: [address] TECHNOLOGIST: [id number] DOCTOR: RAFIA TREJO DO Ordered for Date&Time: 08/19/20 1116 cc: [~ rep ct ivnm] Service Date&Time: 08/19/20 1243 This report is in Signed status. Interpretation performed by [facility]. Thank you for having your radiology procedures performed at [facility] RADIOLOGY REPORT Date&Time printed: [~ rep prt dt last] [~ rep prt tm last] Page 2 of 2 [place] [id number] RADIOLOGY REPORT This report is in Signed status. Interpretation performed by [facility]. Thank you for having your radiology procedures performed at [facility] RADIOLOGY REPORT Date&Time printed: [~ rep prt dt last] [~ rep prt tm last] Page 1 of 1 PROCEDURE INFORMATION: Exam: CT Lumbar Spine Without Contrast Exam date and time: 08/19/2020 12:43 PM Age: 75 years old Clinical indication: Other: Urinary retention TECHNIQUE: Imaging protocol: Computed tomography images of the lumbar spine without contrast. Radiation optimization: All CT scans at this facility use at least one of these dose optimization techniques: automated exposure control; mA and/or kV adjustment per patient size (includes targeted exams where dose is matched to clinical indication); or iterative reconstruction. COMPARISON: No relevant prior studies available. FINDINGS: Vertebrae: There is diffuse demineralization, limiting evaluation. There is inferior endplate depression at L3 with a Schmorl's node. Normal vertebral body heights are otherwise preserved.. Discs/Spinal canal/Neural foramina: There is multilevel disc bulging. At L4/5, disc bulge and mild facet hypertrophy contribute to [id number] bilateral neural foraminal narrowing and mild canal stenosis. At L5/S1, shallow disc bulging and uhwo-ri-ikbhafqs facet hypertrophy contribute to mild to moderate right and moderate left neural foraminal narrowing. There is mild canal stenosis. Pleural space: There are small bilateral pleural effusions. Gallbladder and bile ducts: There is cholelithiasis. Stomach and bowel: There is colonic diverticulosis. Intraperitoneal space: There is a small volume of free pelvic fluid. Vasculature: There are calcific atherosclerotic changes of the abdominal aorta. Soft tissues: Unremarkable. IMPRESSION: 1. Inferior endplate depression at L3 associated with a Schmorl's node, likely chronic. 2. Degenerative disc disease and spondylosis. At L5/S1, changes contribute to mild to moderate right and moderate left neural foraminal narrowing and mild canal stenosis. Electronically signed by: Tana Kearney On 08/19/2020 13:05:20 PM DD: TANA KEARNEY MD 08/19/20 1243 DT: VR 08/19/20 1305 DS: CAVCR 08/19/20 1305 [~ rep ct labl] PROGNOSIS: fair ACTIVITY: [As tolerated]. DIET: Diabetes diet DISPOSITION: [facility]. 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 TIME SPENT ON DISCHARGE: Greater than 40 minutes. Vital Signs/I&Os Vital Signs Date Time Temp Pulse Resp B/P (MAP) Pulse Ox O2 Delivery O2 Flow Rate FiO2 08/19/20 08:51 71 106/42 08/19/20 06:00 98.3 18 99 Room Air 08/15/20 17:15 1.0 I&O- Last 24 Hours up to 6 AM 08/19/20 06:00 Intake Total 550 ml Output Total 250 ml Balance 300 ml Laboratory Data Labs 24H Laboratory Tests 2 08/18/20 21:13: Bedside Glucose (Misc Panel) 185H 08/19/20 06:05: Anion Gap 2L, Glomerular Filtration Rate > 60.0, Calcium Level 8.3L 08/19/20 10:15: Coronavirus (COVID-19)(PCR) NEGATIVE 08/19/20 11:52: Bedside Glucose (Misc Panel) 85 CBC/BMP Laboratory Tests 08/19/20 06:05 FSBS Laboratory Tests Test 08/18/20 21:13 08/19/20 11:52 Range/Units Bedside Glucose (Misc Panel) 185 85 83-110 MG/DL Discharge Medications Scheduled Alendronate Sodium (Alendronate Sodium) 70 Mg Tablet, 70 MG PO QWEEK, (Reported) SATURDAY Amiodarone HCl (Amiodarone HCl) 200 Mg Tablet, 200 MG PO 3XW, (Reported) SATURDAY, SATURDAY AND SATURDAY Apixaban (Eliquis) 5 Mg Tablet, 5 MG PO BID, (Reported) Aspirin (Aspirin) 81 Mg Tab.chew, 81 MG PO DAILY, (Reported) Buspirone HCl (Buspirone HCl) 5 Mg Tablet, 5 MG PO BID, (Reported) Cholecalciferol (Vitamin D3) (Vitamin D3) 50 Mcg Capsule, 2,000 UNITS PO DAILY, (Reported) Cyanocobalamin (Vitamin B-12) (B-12) 500 Mcg Tablet, 500 MCG PO DAILY, (Reported) Diltiazem HCl (Diltiazem 24Hr ER) 240 Mg Cap.er.24h, 240 MG PO BID, (Reported) Ferrous Sulfate (Ferrous Sulfate) 325 Mg Tablet, 325 MG PO DAILY, (Reported) Fluticasone Propionate (Fluticasone Propionate) 16 Gm [place].susp, 2 SPRAYS NARES DAILY, (Reported) Fluticasone/Umeclidin/Vilanter (Trelegy Ellipta 100-62.5-25) 1 Each Blst.w.dev, 1 PUFF INH DAILY, (Reported) Furosemide (Furosemide) 40 Mg Tablet, 40 MG PO DAILY, (Reported) Gabapentin (Gabapentin) 100 Mg Capsule, 1 CAP PO TID Hydrocortisone (Hydrocortisone) 10 Mg Tablet, 20 MG PO BID, (Reported) Insulin Detemir (Levemir) 100 Unit/1 Ml Vial, 12 UNITS SC DAILY, (Reported) Magnesium Oxide (Magnesium Oxide) 400 Mg Tablet, 400 MG PO BID, (Reported) Metformin HCl (Metformin HCl) 1,000 Mg Tablet, 1,000 MG PO BID, (Reported) Prednisone (Prednisone) 20 Mg Tablet, 40 MG PO DAILY, (Reported) FILLED 07/26/20 FOR 5 DAYS Ropinirole HCl (Ropinirole HCl) 1 Mg Tablet, 1 MG PO QHS, (Reported) Tamsulosin HCl (Flomax) 0.4 Mg Capsule, 0.8 MG PO DAILY Scheduled PRN Acetaminophen (Acetaminophen) 500 Mg Tablet, 500 MG PO Q4H PRN for PAIN, (Reported) Ipratropium/Albuterol Sulfate (Iprat-Albut 0.5-3(2.5) mg/3 ml) 3 Ml Ampul.neb, 1 VIAL NEB Q4H PRN for SOB/WHEEZING, (Reported) Oxycodone HCl/Acetaminophen (Oxycodone-Acetaminophen 5-325) 1 Each Tablet, 1 TAB PO Q4H PRN for PAIN, (Reported) Allergies Coded Allergies: propoxyphene (Verified Allergy, Intermediate, hives, 08/28/19) RAFIA TREJO DO Aug 19, 2020 17:48
[2020-08-20] MEDS ORDERED: ALENDRONATE 35MG TABLET PO SCH (07:00)
--- NOTE | 2020-08-22 12:45 | REP ---
PORTABLE CHEST X-RAY: SINGLE VIEW. HISTORY: Pneumonia. COMPARISON: Portable chest x-ray 08/07/2020. FINDINGS: There is diffuse osteopenia and old post-traumatic deformity seen in the left rib cage and right anterior rib cage and left proximal humerus as before. Heart is not felt to be enlarged. There is increased density in the left lower lobe and left hemidiaphragm is obscured with slight blending to the left lateral pleural angle. This is consistent with increased pulmonary parenchymal opacification in the left lower lobe and/or left pleural effusion. Pulmonary vasculature is not increased. No other infiltrate is seen. IMPRESSION: Increased left lower lobe density and pleural opacity left base question increased infiltrate with or without left pleural fluid. MTDD
== END 2020-08-19 13:20 | DRG 190 ==
LOC: M ED 09:19 → M ED INP 12:26 → M PCU 15:30 → M MSPAV 07-30 12:31 → M PCU 08-05 17:54 → M MS5PR 08-15 16:45
PROVIDERS: ADMIT Internal Medicine; ATTEND Internal Medicine
PROC: 30233N1 Transfusion of Nonautologous Red Blood Cells into Peripheral Vein, Percutaneous Approach (ICD-10-PCS; principal; 2020-08-05)
PROC: 02HV33Z Insertion of Infusion Device into Superior Vena Cava, Percutaneous Approach (ICD-10-PCS; 2020-08-05)
DX: J44.1 Chronic obstructive pulmonary disease with (acute) exacerbation (principal); J69.0 Pneumonitis due to inhalation of food and vomit; I50.32 Chronic diastolic (congestive) heart failure; E27.40 Unspecified adrenocortical insufficiency; K56.50 Intestinal adhesions [bands], unspecified as to partial versus complete obstruction; M80.8AXA Other osteoporosis with current pathological fracture, other site, initial encounter for fracture; I48.91 Unspecified atrial fibrillation; F41.9 Anxiety disorder, unspecified; D72.829 Elevated white blood cell count, unspecified; E87.5 Hyperkalemia; R33.9 Retention of urine, unspecified; Z79.82 Long term (current) use of aspirin; Z79.899 Other long term (current) drug therapy; Z88.8 Allergy status to other drugs, medicaments and biological substances; E11.9 Type 2 diabetes mellitus without complications; Z86.73 Personal history of transient ischemic attack (TIA), and cerebral infarction without residual deficits; F17.200 Nicotine dependence, unspecified, uncomplicated; G47.00 Insomnia, unspecified; K57.30 Diverticulosis of large intestine without perforation or abscess without bleeding

== ENCOUNTER 2020-08-19 15:09 | Emergency (ER) | payer MEDICARE, MEDICAID ==
[~2020-08-19 15:09] MED LIST changes: +B-121TAB3 PO; +DILT240C47 PO; +FLOM0.4C39 PO; -FUROSEMIDE 40 MG TAB PO SCH; +IPRA0.00 NEB; +METF10004 PO; +OXYC1TAB23 PO; +TREL1AER INH; +VITA200021 PO
[2020-08-19 15:57] VITALS: BP 111/53
== END 2020-08-19 16:02 | disposition left against medical advice (07) ==
LOC: M ED 15:09
DX: R15.9 Full incontinence of feces (principal); Z53.9 Procedure and treatment not carried out, unspecified reason; I11.9 Hypertensive heart disease without heart failure; Z86.73 Personal history of transient ischemic attack (TIA), and cerebral infarction without residual deficits; Z79.01 Long term (current) use of anticoagulants; Z79.899 Other long term (current) drug therapy

== ENCOUNTER 2020-08-24 20:13 | Inpatient (IN) | payer MEDICARE, MEDICAID ==
[~2020-08-24] VITALS: Ht 154.9 cm; Wt 53.3 kg
[2020-08-24] MEDS ORDERED: NICO7PA TOP (20:35)
[2020-08-24] MEDS ORDERED: GABA-1171 PO (20:35)
[2020-08-24] MEDS ORDERED: NITR4TASL SL (20:35)
[2020-08-24] MEDS ORDERED: ALPR1TAB3 PO (20:35)
[2020-08-24] MEDS ORDERED: ASPIRIN 81 MG CHEW TABLET PO ONE (20:45)
[2020-08-24] MEDS ORDERED: methylPREDNISolone 125MG 2ML VIAL IV ONE (20:45)
[2020-08-24] MEDS ORDERED: IPRATROPIUM 0.5MG/ALBUTEROL 2.5MG INH SOL UD 3ML (DUONEB) NEB SCH (20:45)
[2020-08-24] MEDS ORDERED: CALC1TAB74 PO (20:46)
[2020-08-24] MEDS ORDERED: ACET25TA12 PO (20:46)
[2020-08-24] MEDS ORDERED: BASA100I SC (20:46)
[2020-08-24] MEDS ORDERED: ACET1TAB55 PO (20:46)
[2020-08-24] MEDS ORDERED: BISA10SU PR (20:46)
[2020-08-24] MEDS ORDERED: FLOM0.4C39 PO (20:46)
[2020-08-24] MEDS ORDERED: APAP325T4 PO (20:46)
[2020-08-24] MEDS ORDERED: ENEMENE PR (20:46)
[2020-08-24] MEDS ORDERED: MOM30SS2 PO (20:46)
--- NOTE | 2020-08-24 20:56 | REPVR ---
PROCEDURE INFORMATION: Exam: XR Chest, 1 View Exam date and time: 08/24/2020 8:38 PM Age: 75 years old Clinical indication: Other: Chest pain TECHNIQUE: Imaging protocol: XR of the chest Views: 1 view. COMPARISON: [facility] PORTABLE CHEST X-RAY 08/16/2020 3:23 PM FINDINGS: Lungs: Mild increased interstitial markings. Pleural space: Stable blunting left costophrenic angle. Finding may be chronic and related to pleural thickening or indicate a small left effusion. Increased opacity at the left lung base may indicate an infiltrate as well. Heart/Mediastinum: Cardiomegaly. Bones/joints: Osteoporosis. Chronic fracture deformity left humeral neck/head. Other findings: Old posttraumatic deformity left and right ribcage. IMPRESSION: 1. Cardiomegaly. 2. Stable blunting left costophrenic angle. Finding may be chronic and related to pleural thickening or indicate a small left effusion. Increased opacity at the left lung base may indicate an infiltrate as well. Electronically signed by: Epifanio Petersen On 08/24/2020 20:56:18 PM
[2020-08-24 21:09] LABS: BASO % 0.4 % (0.0-1.0); EOS # 0.1 10^3/uL (0.0-0.5); EOS % 1.2 % (0.0-3.0); HEMATOCRIT 25.3 % (36.0-47.0); HEMOGLOBIN 7.8 g/dl (12.0-15.5); LYMPH # 1.2 10^3/uL (1.5-5.0); MEAN CORPUSCULAR HEMOGLOBIN 30.1 pg (27.0-33.0); MEAN CORPUSCULAR HGB CONC 30.8 g/dl (32.0-36.5); MEAN CORPUSCULAR VOLUME 97.7 fl (80.0-96.0); MONO # 0.5 10^3/uL (0.0-0.8); MONO % 9.7 % (0.0-5.0); NEUTROPHILS % 59.9 % (36.0-66.0); PLATELET COUNT, AUTOMATED 396 10^3/uL (150-450); RED BLOOD COUNT 2.59 10^6/uL (4.00-5.40)
[2020-08-24 21:20] LABS: INR 1.33; PARTIAL THROMBOPLASTIN TIME 33.2 SECONDS (24.2-38.5); PROTHROMBIN TIME 16.8 SECONDS (12.5-14.3)
[2020-08-24 21:33] LABS: ALBUMIN 1.6 GM/DL (3.2-5.2); ALT/SGPT 15 U/L (12-78); BILIRUBIN,DIRECT < 0.1 MG/DL (0.0-0.2); BILIRUBIN,TOTAL 0.2 MG/DL (0.2-1.0); BLOOD UREA NITROGEN 20 MG/DL (7-18); CARBON DIOXIDE LEVEL 34 MEQ/L (21-32); CHLORIDE LEVEL 103 MEQ/L (98-107); CK-MB VALUE MASS 1.7 NG/ML (<3.6); CPK CREATINE PHOSPHOKINASE 23 U/L (26-192); CREATININE FOR GFR 0.66 MG/DL (0.55-1.30); GLOMERULAR FILTRATION RATE > 60.0 (>39); GLUCOSE, FASTING 80 MG/DL (70-100); LIPASE 47 U/L (73-393); MB/CK RELATIVE INDEX 7.39 (< OR =4); POTASSIUM SERUM 3.4 MEQ/L (3.5-5.1); SODIUM LEVEL 144 MEQ/L (136-145); TOTAL PROTEIN 4.2 GM/DL (6.4-8.2); TROPONIN I 0.02 NG/ML (< 0.10)
[2020-08-24 22:05] LABS: NT-PRO BNP 1650 PG/ML (<450)
[2020-08-24] MEDS ORDERED: fentaNYL 100 MCG/2 ML INJECTION (J3010) IV ONE (22:15)
[2020-08-24] MEDS ORDERED: FUROSEMIDE 100MG/10ML VIAL (J1940) IV ONE (23:45)
[2020-08-25] VITALS (12 sets, daily range): BP systolic 106–117; BP diastolic 47–56
[2020-08-25] MEDS ORDERED: ALPRAZolam 0.5 MG TAB PO SCH
[2020-08-25] MEDS ORDERED: GLUCOSE 4GM CHEW TABLET PO PRN
[2020-08-25] MEDS ORDERED: BISACODYL 10 MG SUPP PR PRN
[2020-08-25] MEDS ORDERED: DEXTROSE 50% 50 ML SYRINGE IV PRN
[2020-08-25] MEDS ORDERED: MOM 30ML SUSPENSION UDC PO PRN
[2020-08-25] MEDS ORDERED: FLEET ENEMA PR PRN
[2020-08-25] MEDS ORDERED: NITROGLYCERIN 0.4 MG SUBL TABLET SL PRN
[2020-08-25] MEDS ORDERED: GLUCAGON INJ 1MG VIAL SC PRN
[2020-08-25] MEDS ORDERED: IPRATROPIUM 0.5MG/ALBUTEROL 2.5MG INH SOL UD 3ML (DUONEB) NEB PRN
--- NOTE | 2020-08-25 00:07 | HPEPDOC ---
General Date of Admission 08/24/20 Date of Service: Aug 24, 2020 Chief Complaint The patient is a 75-year-old female admitted with a reason for visit of Chest Pain. Source: Patient Exam Limitations: Clinical conditions Timing/Duration: 24 hours Severity: Moderate Associated Symptoms: Shortness of breath History of Present Illness Patient vilma 75 year old female with COPD, DM, Afib, and hypertension here with upper back pain presented to the hospital with midsternal chest pain and shortness of breath. Patient stated that she has been having symptoms for past 24 hours. She received nitro in [place], systolic blood pressure dropped to 70 and chest pain got worse. In ER patient was found to have BNP 1600, negative troponin and EKG was negative for acute ischemic changes, hemoglobin 7.8. Home Medications Scheduled Acetaminophen (Acetaminophen) 325 Mg Tablet, 650 MG PO BID, (Reported) Acetaminophen/Diphenhydramine (Acetaminophen Pm Caplet) 1 Each Tablet, 1 TAB PO QHS, (Reported) Alendronate Sodium (Alendronate Sodium) 70 Mg Tablet, 70 MG PO QWEEK, (Reported) SATURDAY Alprazolam (Alprazolam) 1 Mg Tablet, 1 MG PO ASDIRECTED, (Reported) PRIOR TO MRI ON 08/25/20 Amiodarone HCl (Amiodarone HCl) 200 Mg Tablet, 200 MG PO 3XW, (Reported) SATURDAY, SATURDAY AND SATURDAY Apixaban (Eliquis) 5 Mg Tablet, 5 MG PO BID, (Reported) Aspirin (Aspirin) 81 Mg Tab.chew, 81 MG PO DAILY, (Reported) Buspirone HCl (Buspirone HCl) 5 Mg Tablet, 5 MG PO BID, (Reported) Calcium Carbonate/Vitamin D3 (Calcium 600-Vit D3 400 Tablet) 1 Each Tablet, 1 TAB PO BID, (Reported) Cholecalciferol (Vitamin D3) (Vitamin D3) 50 Mcg Capsule, 2,000 UNITS PO DAILY, (Reported) Cyanocobalamin (Vitamin B-12) (B-12) 500 Mcg Tablet, 500 MCG PO DAILY, (Reported) Diltiazem HCl (Diltiazem 24Hr ER) 240 Mg Cap.er.24h, 240 MG PO DAILY, (Reported) Ferrous Sulfate (Ferrous Sulfate) 325 Mg Tablet, 325 MG PO DAILY, (Reported) Fluticasone Propionate (Fluticasone Propionate) 16 Gm [place].susp, 2 SPRAYS NARES DAILY, (Reported) Fluticasone/Umeclidin/Vilanter (Trelegy Ellipta 100-62.5-25) 1 Each Blst.w.dev, 1 PUFF INH DAILY, (Reported) Furosemide (Furosemide) 40 Mg Tablet, 40 MG PO DAILY, (Reported) Gabapentin (Gabapentin) 100 Mg Capsule, 100 MG PO TID, (Reported) Hydrocortisone (Hydrocortisone) 10 Mg Tablet, 20 MG PO BID, (Reported) Insulin Glargine,Hum.rec.anlog (Basaglar Kwikpen U-100) 100 Unit/1 Ml Insuln.pen, 12 UNIT SC DAILY, (Reported) Magnesium Oxide (Magnesium Oxide) 400 Mg Tablet, 400 MG PO BID, (Reported) Metformin HCl (Metformin HCl) 1,000 Mg Tablet, 1,000 MG PO BID, (Reported) Nicotine (Nicotine Patch) 7 Mg Patch.td24, 1 PATCH TOP DAILY, (Reported) START DATE 08/25/20 Ropinirole HCl (Ropinirole HCl) 1 Mg Tablet, 1 MG PO QHS, (Reported) Tamsulosin HCl (Flomax) 0.4 Mg Capsule, 0.8 MG PO DAILY, (Reported) FOR 14 DAYS, FINISH DATE 09/02/20 Scheduled PRN Acetaminophen (Acetaminophen) 325 Mg Tablet, 650 MG PO Q4H PRN for PAIN, (Reported) Bisacodyl (Bisacodyl) 10 Mg Supp.rect, 10 MG SD DAILY PRN for CONSTIPATION, (Reported) Ipratropium/Albuterol Sulfate (Iprat-Albut 0.5-3(2.5) mg/3 ml) 3 Ml Ampul.neb, 1 VIAL NEB Q4H PRN for SOB/WHEEZING, (Reported) Magnesium Hydroxide (Milk of Magnesia) 400 Mg/5 Ml Oral.susp, 2,400 MG PO DAILY PRN for CONSTIPATION, (Reported) Nitroglycerin (Nitrostat) 0.4 Mg Tab.subl, 0.4 MG SL Q5MP PRN for CHEST PAIN, (Reported) Sodium Phosphate,Brown-Dibasic (Enema) 133 Ml Enema, 1 CHRISTI SD DAILY PRN for CONSTIPATION, (Reported) Allergies Coded Allergies: propoxyphene (Verified Allergy, Intermediate, hives, 08/24/20) Past Medical History Medical History 1. CVA and TIA 2. Seizure 25 years ago 3. Diastolic heart failure 4. SVT 5. Atrial fibrillation 6. Chronic bronchitis, COPD 7. Rib fracture 4 weeks ago 8. History of SBO 9. Adrenal insufficiency 10. Urinary retention 11. Arthritis 12. Anxiety 13. 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 Anemia 15. Fractured 8th vertebra Surgical History 1. Bilateral cataracts 2. L breast biopsy 3. Hysterectomy 4. Cervical and thoracic spine surgery Family History Father: Diabetes Mother: COPD Social History * Smoker: current smoker Alcohol: Denies Drugs: denies A-FIB/CHADSVASC A-FIB History Current/History of A-Fib/PAF?: Yes Current PO Anticoag Therapy: Yes Review of Systems Constitutional: Denies: Chills Eyes: Denies: Pain, Vision change ENT: Denies: Head Aches Skin: Denies: Rash, Lesions Pulmonary: Reports: Dyspnea Cardiovascular: Reports: Chest Pain Gastrointestinal: Denies: Nausea, Vomiting Genitourinary: Denies: Hematuria Hematologic: Denies: Bruising Endocrine: Denies: Polydipsia, Polyphagia Musculoskeletal: Denies: Neck Pain Neurological: Denies: Weakness Psych: Reports: Mood Normal Physical Examination General Exam: Positive: Alert, Cooperative Eye Exam: Positive: PERRLA ENT Exam: Positive: Atraumatic Neck Exam: Positive: Supple, JVD Chest Exam: Positive: Diminished Telemetry: Positive: Atrial fibrillation Abdomen Exam: Positive: Normal bowel sounds Extremity Exam: Positive: Clubbing; Negative: Cyanosis Skin Exam: Positive: Nl turgor and temperature Neuro Exam: Positive: Normal Tone, Cranial Nerves 3-12 NL Psych Exam: Positive: Mental status NL Vital Signs Vital Signs Date Time Temp Pulse Resp B/P (MAP) Pulse Ox O2 Delivery O2 Flow Rate FiO2 08/24/20 22:57 71 20 108/52 100 Nasal Cannula 2.0 08/24/20 20:16 98.8 Laboratory Data Labs 24H Laboratory Tests 2 08/24/20 20:55: Immature Granulocyte % (Auto) 4.8H, Neutrophils (%) (Auto) 59.9, Lymphocytes (%) (Auto) 24.0, Monocytes (%) (Auto) 9.7H, Eosinophils (%) (Auto) 1.2, Basophils (%) (Auto) 0.4, Neutrophils # (Auto) 3.0, Lymphocytes # (Auto) 1.2L, Monocytes # (Auto) 0.5, Eosinophils # (Auto) 0.1, Basophils # (Auto) 0.0, Nucleated Red Blood Cells % (auto) 0.0, Prothrombin Time 16.8H, Prothromb Time International Ratio 1.33, Activated Partial Thromboplast Time 33.2, Anion Gap 7L, Glomerular Filtration Rate > 60.0, Calcium Level 8.0L, Total Bilirubin 0.2, Direct Bilirubin < 0.1, Aspartate Amino Transf (AST/SGOT) 10, Alanine Aminotransferase (ALT/SGPT) 15, Alkaline Phosphatase 82, Total Creatine Kinase 23L, Creatine Kinase MB 1.7, Creatine Kinase MB Relative Index 7.39H, Troponin I 0.02, QR-Wxi-F-Type Natriuretic Peptide 1650H, Total Protein 4.2L, Albumin 1.6L, Albumin/Globulin Ratio 0.6L, Lipase 47L 08/24/20 22:35: Lactic Acid Level 2.3*H CBC/BMP Laboratory Tests 08/24/20 20:55 Assessment/Plan Patient vilma 75 year old female with COPD, DM, Afib, and hypertension here with upper back pain presented to the hospital with midsternal chest pain and shortness of breath. Patient stated that she has been having symptoms for past 24 hours. She received nitro in [place], systolic blood pressure dropped to 70 and chest pain got worse. In ER patient was found to have BNP 1600, negative troponin and EKG was negative for acute ischemic changes, hemoglobin 7.8. Problems (1) Chest pain Status: Resolved Problem Text: EKG negative for acute ischemic changes trop negative Telemetry Nitroglycerin Morphine IV when necessary (2) CHF exacerbation Status: Acute Problem Text: Diastolic CHF Echo was done on 08/03/20 and showed Normal LV size with preserved LV systolic function and grade 1 diastolic dysfunction. Lasix IV twice a day Is and os Cardiac diet (3) Diabetes mellitus Status: Chronic Problem Text: Insulin sliding scale Detemir twice a day Diabetes diet (4) COPD (chronic obstructive pulmonary disease) Status: Chronic Problem Text: Patient active smoker Not in acute exacerbation Continue inhalers (5) Tobacco abuse Status: Chronic Problem Text: Nicotine patch (6) Adrenal insufficiency Status: Chronic Problem Text: Continue fludrocortisone (7) Atrial fibrillation Status: Chronic Problem Text: Continue Eliquis Heart rate is under control (8) Anemia Status: Chronic Problem Text: Normocytic We will check iron studies and stool for occult blood 2 units of blood transfusion Plan / VTE VTE Prophylaxis Ordered?: Yes RAFIA TREJO DO Aug 25, 2020 00:07
[2020-08-25 00:44] LABS: IRON (FE) 25 UG/DL (50-170); PERCENT SATURATION 20.7 % (13.2-45.0); TOTAL IRON BINDING CAPACITY 121 UG/DL (250-450)
[2020-08-25] MEDS ORDERED: NYSTATIN 500,000 U/5 ML SUSP UDC SS PRN (03:30)
[2020-08-25] MEDS ORDERED: MORPHINE 2 MG/ML 1ML VIAL (J2270) IV ONE (03:30)
[2020-08-25 05:38] LABS: HEMATOCRIT 31.2 % (36.0-47.0); HEMOGLOBIN 9.7 g/dl (12.0-15.5); MEAN CORPUSCULAR HGB CONC 31.1 g/dl (32.0-36.5); MEAN CORPUSCULAR VOLUME 93.4 fl (80.0-96.0); PLATELET COUNT, AUTOMATED 388 10^3/uL (150-450); RED BLOOD COUNT 3.34 10^6/uL (4.00-5.40); WHITE BLOOD COUNT 5.2 10^3/uL (4.0-10.0)
[2020-08-25 05:54] LABS: BLOOD UREA NITROGEN 20 MG/DL (7-18); CALCIUM LEVEL 7.8 MG/DL (8.8-10.2); CARBON DIOXIDE LEVEL 33 MEQ/L (21-32); CHLORIDE LEVEL 102 MEQ/L (98-107); CREATININE FOR GFR 0.51 MG/DL (0.55-1.30); GLOMERULAR FILTRATION RATE > 60.0 (>39); GLUCOSE, FASTING 221 MG/DL (70-100); POTASSIUM SERUM 3.4 MEQ/L (3.5-5.1); SODIUM LEVEL 140 MEQ/L (136-145)
--- NOTE | 2020-08-25 06:02 | ECGEPIP ---
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
[2020-08-25] MEDS ORDERED: POTASSIUM CHLORIDE 10 MEQ SR TABLET PO ONE (06:30)
[2020-08-25] MEDS ORDERED: metOLazone 5 MG TAB PO ONE (08:30)
[2020-08-25] MEDS: HumaLOG INSULIN (NovoLOG) PER UNIT SC SCH ×4 (08:55→20:21)
[2020-08-25] MEDS: LEVEMIR (INSULIN DETEMIR) 1 UNITS/0.01ML SC SCH ×2 (08:56→20:38)
[2020-08-25] MEDS: FLUTICASONE PROP 0.05% NASAL SPRAY 16 GM (FLONASE) NARES SCH (08:56)
[2020-08-25] MEDS: MAGNESIUM OXIDE 400 MG TAB (MAG-OX) PO SCH ×2 (08:57→20:37)
[2020-08-25] MEDS: HYDROCORTISONE 10 MG TAB PO SCH ×2 (08:57→20:34)
[2020-08-25] MEDS: FERROUS SULFATE 325MG TAB PO SCH (08:57)
[2020-08-25] MEDS: APIXABAN 5 MG TAB (ELIQUIS) PO SCH ×2 (08:58→20:37)
[2020-08-25] MEDS: CYANOCOBALAMIN 500 MCG TAB PO SCH (08:58)
[2020-08-25] MEDS: NICOTINE 7 MG/24 HR TRANSDERMAL TOP SCH (08:58)
[2020-08-25] MEDS: busPIRone 5 MG TAB PO SCH ×2 (08:58→20:37)
[2020-08-25] MEDS: ASPIRIN 81 MG CHEW TABLET PO SCH (08:58)
[2020-08-25] MEDS: ACETAMINOPHEN TAB 650MG DOSE (2X325MG) PO SCH ×2 (08:58→20:36)
[2020-08-25] MEDS: GABAPENTIN 100 MG CAP PO SCH ×3 (08:58→20:37)
[2020-08-25] MEDS ORDERED: FUROSEMIDE 40MG/4ML VIAL (J1940) IV SCH (09:00)
[2020-08-25] MEDS: FUROSEMIDE 40MG/4ML VIAL (J1940) IV SCH ×4 (09:38→20:38)
--- NOTE | 2020-08-25 11:43 | IPNPDOC ---
Date Seen The patient was seen on 08/25/20. Progress Note SUBJECTIVE: Patient still complains of shortness of breath, only slightly improved despite diuresis with IV Lasix twice a day yesterday. She denies any fever, chills. Denies any cough, palpitations, lightheadedness or dizziness. No epigastric discomfort, chest pain, pressure, tightness, nausea or vomiting OBJECTIVE PHYSICAL EXAMINATION: VITAL SIGNS: Please see below. Input 561, output 1150, -589Balance. current weight is 60.9 kg GENERAL: Hard of hearing, awake, alert, oriented to person, answers questions appropriately HEENT: Mild JVD. No cervical lymphadenopathy. Dry mucous membranes. Extra muscles intact CARDIOVASCULAR: S1, S2, sinus rhythm RESPIRATORY: Diminished breath sounds with crackles at the left base ABDOMINAL: Soft, nontender, nondistended, positive bowel sounds EXTREMITIES: Trace bilateral lower extremity edema LABORATORY DATA, IMAGING STUDIES, MICROBIOLOGY: Please see below. CHEST X-RAY 08/24/2020: , Cardiomegaly, stable blunting left costophrenic angle may be chronic and related to pleural thickening or indicate small left effusion, increased opacity at left lung base may indicate an infiltrate as well., Osteoporosis. HOSPITAL MEDICATIONS: Amiodarone requip Humalog insulin sliding scale, potassium, Tylenol eliquis, aspirin, BuSpar, vitamin B12, Cardizem , Ferrous sulfate, Flonase, gabapentin, hydrocortisone, magnesium oxide, nicotine patch, Levemir, Lasix, nystatin, Xanax, Dulcolax, do not nitroglycerin, milk of magnesia, hypoglycemic protocol 08/03/2020. Echocardiogram read by Dr. Zepeda Grade 1 left ventricular diastolic dysfunction with normal preserved left ventricular systolic function, aortic sclerosis, resulting in trace insufficiency and mild stenosis. Trace pericardial effusion. Trace tricuspid insufficiency. Trace pulmonic insufficiency ASSESSMENT AND PLAN: 75-year-old female admitted on 08/24/2020 with complaints of chest pain scribed in the midsternal area, along with shortness of breath, found to have a hemoglobin of 7.8, negative EKG findings and elevated BNP of 1600. She was admitted for congestive heart failure with left pleural effusion and symptomatic anemia with demand mediated ischemia. PROBLEMS: Symptomatic anemia with hemoglobin of 7.8 on hospital presentation and complaints of chest pain Demand mediated ischemia due to chronic anemia Congestive heart failure exacerbation, with preserved systolic function, grade 1 left ventricular diastolic dysfunction Anemia of chronic disease, rule out acute GI blood loss History CVA and TIA. History of seizures 25 years ago. History of atrial fibrillation. Chronic bronchitis/COPD, compensated. History of recent rib fractures. Chronic adrenal insufficiency. Chronic urine retention. Chronic anxiety. History of alcohol abuse. History of fractured eighth vertebrae. Hypokalemia PLAN: Patient has developed symptomatic anemia with complains of back pain and chest pain with hemoglobin of 7.8 on hospital presentation. She was given 1 unit of RBC transfusion ordered with improvement in her chest pain. Patient had no acute ST-T wave changes and no signs of non-ST elevation myocardial infarction on EKG. Patient is currently being diuresed with Lasix due to complaint shortness of breath and left-sided pleural effusion noted on the chest x-ray with elevated BNP level of 1650. Patient had developed hypokalemia which has been supplemented with potassium. The patient does not have any overt wheezing on exam to suggest COPD exacerbation. Physical therapy has been consulted to assist in ambulation and for home safety evaluation. Repeat chest x-ray to monitor resolution of left-sided pleural effusion has been ordered .Electrolyte surveillance with repeat basic metabolic panel and magnesium every 6 hourly in order to supplement low levels of potassium and magnesium if needed. Once the patient is euvolemic. She may be discharged home if cleared by physical therapy. If patient develops a fever, increasing white count, cough productive of sputum and chest x-ray showing persistent left basilar infiltrate. She will be started on antibiotics. Despite the anemia. She has been continued on anticoagulation for atrial fibrillation which is currently rate controlled on her current regimen. If overt bleeding were to occur with complaints of hematemesis, bright red blood per rectum, melena, or black tarry stools, hger anticoagulation will be held and evaluation for GI bleed with endoscopy will be done. VS, I&O, 24H, Fishbone Vital Signs/I&O Vital Signs Date Time Temp Pulse Resp B/P (MAP) Pulse Ox O2 Delivery O2 Flow Rate FiO2 08/25/20 09:36 86 16 113/52 (72) 93 Room Air 08/25/20 08:31 1.0 08/25/20 05:35 98.0 I&O- Last 24 Hours up to 6 AM 08/25/20 06:00 Intake Total 561 ml Output Total 1150 ml Balance -589 ml Laboratory Data 24H LABS Laboratory Tests 2 08/24/20 20:55: Immature Granulocyte % (Auto) 4.8H, Neutrophils (%) (Auto) 59.9, Lymphocytes (%) (Auto) 24.0, Monocytes (%) (Auto) 9.7H, Eosinophils (%) (Auto) 1.2, Basophils (%) (Auto) 0.4, Neutrophils # (Auto) 3.0, Lymphocytes # (Auto) 1.2L, Monocytes # (Auto) 0.5, Eosinophils # (Auto) 0.1, Basophils # (Auto) 0.0, Nucleated Red Blood Cells % (auto) 0.0, Prothrombin Time 16.8H, Prothromb Time International Ratio 1.33, Activated Partial Thromboplast Time 33.2, Anion Gap 7L, Glomerular Filtration Rate > 60.0, Calcium Level 8.0L, Iron Level 25L, Total Iron Binding Capacity 121L, Transferrin % Saturation 20.7, Total Bilirubin 0.2, Direct Bilirubin < 0.1, Aspartate Amino Transf (AST/SGOT) 10, Alanine Aminotransferase (ALT/SGPT) 15, Alkaline Phosphatase 82, Total Creatine Kinase 23L, Creatine Kinase MB 1.7, Creatine Kinase MB Relative Index 7.39H, Troponin I 0.02, YT-Xol-V-Type Natriuretic Peptide 1650H, Total Protein 4.2L, Albumin 1.6L, Albumin/Globulin Ratio 0.6L, Lipase 47L 08/24/20 22:35: Lactic Acid Level 2.3*H 08/25/20 04:11: Troponin I 0.02, Lactic Acid Followup at 4 Hours 0.7 08/25/20 05:26: Nucleated Red Blood Cells % (auto) 0.0, Anion Gap 5L, Glomerular Filtration Rate > 60.0, Calcium Level 7.8L CBC/BMP Laboratory Tests 08/24/20 20:55 08/25/20 05:26 MARCELINO GLEASON MD Aug 25, 2020 11:34
--- NOTE | 2020-08-25 12:06 | REPVR ---
PROCEDURE INFORMATION: Exam: XR Chest, 2 Views Exam date and time: 08/25/2020 11:41 AM Age: 75 years old Clinical indication: Shortness of breath; Additional info: Rule out CHF. TECHNIQUE: Imaging protocol: XR of the chest Views: 2 views. COMPARISON: Multiple prior examinations most recently CR Chest, 1 view 08/24/2020 8:29 PM FINDINGS: Tubes, catheters and devices: ECG leads/contacts overlie and partially obscure the anatomy. Lungs: Stable moderate left lower lung airspace opacity, atelectasis versus consolidation. The central pulmonary vasculature does not appear congested. Pleural space: Stable small right pleural effusion. Stable moderate left pleural effusion. No evident pneumothorax. Heart/Mediastinum: The cardiac silhouette is stably mildly diffusely enlarged. Mitral annular calcifications are present. Vasculature: Aortic atherosclerotic calcification. Bones/joints: Cervical hardware redemonstrated. The bones are diffusely demineralized. Old left proximal humeral fracture redemonstrated. Old bilateral rib fractures redemonstrated. Old thoracic vertebral body compression fracture deformities redemonstrated. IMPRESSION: 1. Stable moderate left pleural effusion. Stable small right pleural effusion. 2. Stable moderate left lower lung airspace opacity, atelectasis versus consolidation. 3. Stable cardiomegaly. Electronically signed by: Earl Caban On 08/25/2020 12:06:27 PM
[2020-08-25 12:32] LABS: BLOOD UREA NITROGEN 22 MG/DL (7-18); CALCIUM LEVEL 8.1 MG/DL (8.8-10.2); CARBON DIOXIDE LEVEL 33 MEQ/L (21-32); CHLORIDE LEVEL 99 MEQ/L (98-107); CREATININE FOR GFR 0.83 MG/DL (0.55-1.30); GLOMERULAR FILTRATION RATE > 60.0 (>39); GLUCOSE, FASTING 224 MG/DL (70-100); MAGNESIUM LEVEL 1.7 MG/DL (1.8-2.4); POTASSIUM SERUM 3.8 MEQ/L (3.5-5.1); SODIUM LEVEL 138 MEQ/L (136-145)
[2020-08-25] MEDS ORDERED: MAG SULF 1GM/100ML (MAG RUN) 1 GM in IV 1 EA IV ONE ×2 (14:30→22:45)
--- NOTE | 2020-08-25 14:52 | REPVR ---
PROCEDURE INFORMATION: Exam: CT Chest Without Contrast Exam date and time: 08/25/2020 2:01 PM Age: 75 years old Clinical indication: Shortness of breath; Additional info: Rule out pneumonia TECHNIQUE: Imaging protocol: Computed tomography of the chest without contrast. Coronal and sagittal reformats were created and reviewed. 3D rendering (Not supervised by radiologist): MIP and/or 3D reconstructed images were created by the technologist. Radiation optimization: All CT scans at this facility use at least one of these dose optimization techniques: automated exposure control; mA and/or kV adjustment per patient size (includes targeted exams where dose is matched to clinical indication); or iterative reconstruction. COMPARISON: 1. CT Spine,thoracic w/o contrast 07/29/2020 6:30:[address] Chest without contrast 08/28/2019 12:[address] ANGIO CHEST 04/16/2019 2:45:30 AM FINDINGS: Thyroid: Nonspecific right thyroid nodules, the largest measuring 1.2 cm. Lungs: Mild bronchial wall thickening and small bronchial mucous plugging of the bilateral lower lobes and right middle lobe. Minimal centrilobular micronodularity of the right lower lobe. Moderate left lower lobe atelectasis adjacent to the pleural effusion The trachea is unremarkable. Pleural space: Very small dependently layering low-attenuation right pleural effusion. Small dependently layering low-attenuation left pleural effusion. . No pneumothorax. Heart: Aortic valve calcifications are present consistent with aortic valve sclerosis. Heavy coronary arterial atherosclerotic calcification. Mitral annular calcifications are present. Mild cardiomegaly with left atrial and left ventricular enlargement. No pericardial effusion. Mediastinal space: The esophagus is unremarkable. Pulmonary arteries: The main pulmonary arterial trunk is again dilated measuring 3.5 cm in diameter. Aorta: Severe aortic atherosclerosis. No thoracic aortic aneurysm. Lymph nodes: No enlarged lymph nodes. Bones/joints: Old healed left proximal humeral fracture. The bones are diffusely demineralized. Cervical spine fixation hardware. Degenerative spine disease. Multiple old bilateral rib fractures. Compression fracture deformities of T6 and T7 with mild loss of vertebral body height are unchanged compared to 08/28/2019. T3 vertebral body burst-type compression fracture deformity with severe loss of vertebral body height and vertebral plana is not significantly changed compared to 07/29/2020. There is minimal bony retropulsion of the T3 vertebral body without significant bony central canal stenosis. Soft tissues: Midline anterior chest wall 3.5 x 1.7 cm ovoid cystic-appearing lesion present within the subcutaneous fat anterior to the sternum is redemonstrated; this lesion measured 2.7 x 1.7 cm on 04/16/2019. Diffuse dependent body wall edema is incompletely imaged at the upper abdomen. 1.7 cm soft tissue attenuation ovoid masslike focus within the left inferolateral breast (series 202, image 63) appear similar to 08/07/2020. Other findings: Abdominal atherosclerosis. Diffuse hypoattenuation of the blood pool suggestive of anemia. IMPRESSION: 1. Scattered bronchial wall thickening, small bronchial mucous plugging and minimal pulmonary micronodularity. The findings are suggestive of bronchitis and minimal bronchiolitis. 2. There is moderate left lower lobe atelectasis adjacent to the pleural effusion. Infectious pneumonia amongst this area of volume loss is not excludable. 3. Small left pleural effusion. Very small right pleural effusion. 4. Mild cardiomegaly. 5. Nonspecific left breast 1.7 cm mass. Correlation with recent mammography is recommended. 6. Redemonstration of midline anterior chest wall cystic-appearing mass. This is nonspecific but may represent a sebaceous cyst. This should be amenable to physical examination. 7. Please see the body of the report for other findings as described. COMMENTS: Consistent with the [employer]'s Incidental Findings Committee white paper (J Am Fred Radiol 2015): In patients aged 35 years and older with an incidental thyroid nodule equal to or greater than 1.[address], MRI or extrathyroidal US, further evaluation with dedicated thyroid US is recommended for patients with normal life expectancy and without comorbidities. For smaller nodules without suspicious features, no further evaluation or follow up is recommended. Electronically signed by: Earl Caban On 08/25/2020 14:51:50 PM
--- NOTE | 2020-08-25 17:10 | REPVR ---
PROCEDURE INFORMATION: Exam: US Soft Tissue Head and Neck, Thyroid Exam date and time: 08/25/2020 4:41 PM Age: 75 years old Clinical indication: Abnormal findings; Abnormal radiologic study of neck; Additional info: Thyroid nodule TECHNIQUE: Imaging protocol: Real-time ultrasound scan of the neck with image documentation. Exam focused on the thyroid. COMPARISON: CT Spine,cervical w/o contrast 07/29/2020 6:30 PM FINDINGS: Right thyroid lobe: Right lobe of the thyroid gland measures 3.3 x 1.9 x 1.9 cm. Two interpolar cystic foci measure 4 x 4 x 4 mm and 6 x 6 x 5 mm demonstrating bright internal reflectors consistent with colloid cysts. Solid complex hypoechoic lesion demonstrated in the lower pole measures 1.2 x 1.1 x 0.9 cm. Left thyroid lobe: Left lobe of the thyroid gland measures 3.9 x 2 x 1.9 cm. Two upper pole cystic foci of measuring 7 x 7 x 5 mm and 5 x 5 x 4 mm with bright internal reflectors consistent with colloid cysts. Spongiform lesion in the upper pole measures 1.1 x 0.9 x 0.8 cm. Isthmus: Cystic focus in the left side of the isthmus measures 6 x 3 x 4 mm. IMPRESSION: Bilateral thyroid nodules with the largest nodule in the lower pole of the right lobe measuring 1.2 x 1.1 x 0.9 cm and a dominant spongiform lesion in the upper pole of the left lobe measuring 1.1 x 0.9 x 0.8 cm. Lesion on the right corresponds to a Trads 4: Moderately Suspicious: FNA if = 1.5 cm; Follow if = 1 cm at 1, 2, 3, and 5 y. Electronically signed by: Epifanio Petersen On 08/25/2020 17:09:36 PM
[2020-08-25 19:01] LABS: BLOOD UREA NITROGEN 23 MG/DL (7-18); CALCIUM LEVEL 7.7 MG/DL (8.8-10.2); CARBON DIOXIDE LEVEL 32 MEQ/L (21-32); CHLORIDE LEVEL 99 MEQ/L (98-107); CREATININE FOR GFR 0.82 MG/DL (0.55-1.30); GLOMERULAR FILTRATION RATE > 60.0 (>39); GLUCOSE, FASTING 229 MG/DL (70-100); MAGNESIUM LEVEL 1.9 MG/DL (1.8-2.4); POTASSIUM SERUM 3.1 MEQ/L (3.5-5.1); SODIUM LEVEL 141 MEQ/L (136-145)
--- NOTE | 2020-08-25 19:19 | ECGEPIP ---
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
[2020-08-25] MEDS: POTASSIUM CHLORIDE 10 MEQ SR TABLET PO SCH (20:40)
[2020-08-25] MEDS: rOPINIRole 1MG TAB PO SCH (20:40)
[2020-08-25] MEDS ORDERED: LEVALBUTEROL 1.25 MG/0.5 ML CONCENTRATE NEB INH PRN (23:00)
[2020-08-25] MEDS ORDERED: cefTRIAXone SOD 2 GM in D5W MINI-BAG PLUS 50 ML IV SCH (23:00)
[2020-08-26] VITALS: BP 107/48
[2020-08-26] MEDS: DOXYCYCLINE HYCLATE 100 MG in D5W MINI-BAG PLUS 100 ML IV SCH ×2 (01:28→12:04)
[2020-08-26] MEDS: FUROSEMIDE 20MG/2ML VIAL (J1940) IV SCH ×4 (05:25→17:48)
[2020-08-26 05:26] VITALS: BP 106/47
[2020-08-26] MEDS ORDERED: MORPHINE 2 MG/ML 1ML VIAL (J2270) IV ONE (05:45)
[2020-08-26 06:00] VITALS: BP 106/47
[2020-08-26 06:17] LABS: HEMATOCRIT 29.4 % (36.0-47.0); HEMOGLOBIN 9.2 g/dl (12.0-15.5); MEAN CORPUSCULAR HEMOGLOBIN 29.3 pg (27.0-33.0); MEAN CORPUSCULAR HGB CONC 31.3 g/dl (32.0-36.5); MEAN CORPUSCULAR VOLUME 93.6 fl (80.0-96.0); PLATELET COUNT, AUTOMATED 484 10^3/uL (150-450); RED BLOOD COUNT 3.14 10^6/uL (4.00-5.40)
--- NOTE | 2020-08-26 06:31 | ECGEPIP ---
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
[2020-08-26 06:55] LABS: BLOOD UREA NITROGEN 24 MG/DL (7-18); CALCIUM LEVEL 7.6 MG/DL (8.8-10.2); CARBON DIOXIDE LEVEL 33 MEQ/L (21-32); CHLORIDE LEVEL 101 MEQ/L (98-107); CREATININE FOR GFR 0.67 MG/DL (0.55-1.30); FREE THYROXINE INDEX 2.5 % (1.3-4.8); GLOMERULAR FILTRATION RATE > 60.0 (>39); GLUCOSE, FASTING 193 MG/DL (70-100); POTASSIUM SERUM 3.2 MEQ/L (3.5-5.1); SODIUM LEVEL 140 MEQ/L (136-145); T UPTAKE 35 % (30-39); THYROID STIMULATING HORMONE 0.454 uIU/ML (0.358-3.740); THYROXINE (T4) 7.2 UG/DL (4.5-12.0); TROPONIN I < 0.02 NG/ML (< 0.10)
[2020-08-26] MEDS: LEVALBUTEROL 1.25 MG/0.5 ML CONCENTRATE NEB INH SCH ×4 (07:10→19:37)
[2020-08-26] MEDS: SPIRONOLACTONE 25 MG TAB PO SCH ×2 (09:00→16:42)
[2020-08-26] MEDS: OMEPRAZOLE 20 MG CAP PO SCH (09:04)
[2020-08-26] MEDS: busPIRone 5 MG TAB PO SCH ×2 (09:04→21:53)
[2020-08-26] MEDS: ACETAMINOPHEN TAB 650MG DOSE (2X325MG) PO SCH ×2 (09:04→21:53)
[2020-08-26] MEDS: HYDROCORTISONE 10 MG TAB PO SCH ×2 (09:04→21:53)
[2020-08-26] MEDS: AMIODARONE 200 MG TAB (PACERONE) PO SCH (09:04)
[2020-08-26] MEDS: MAGNESIUM OXIDE 400 MG TAB (MAG-OX) PO SCH ×2 (09:05→21:53)
[2020-08-26] MEDS: CYANOCOBALAMIN 500 MCG TAB PO SCH (09:05)
[2020-08-26] MEDS: GABAPENTIN 100 MG CAP PO SCH ×3 (09:05→21:53)
[2020-08-26] MEDS: guaiFENesin ER 600 MG TAB PO SCH ×2 (09:05→21:53)
[2020-08-26] MEDS: FLUTICASONE PROP 0.05% NASAL SPRAY 16 GM (FLONASE) NARES SCH (09:05)
[2020-08-26] MEDS: FERROUS SULFATE 325MG TAB PO SCH (09:05)
[2020-08-26] MEDS: ASPIRIN 81 MG CHEW TABLET PO SCH (09:05)
[2020-08-26] MEDS: POTASSIUM CHLORIDE 10 MEQ SR TABLET PO SCH ×2 (09:05→21:52)
[2020-08-26] MEDS: NICOTINE 7 MG/24 HR TRANSDERMAL TOP SCH (09:06)
[2020-08-26] MEDS: HumaLOG INSULIN (NovoLOG) PER UNIT SC SCH ×4 (09:08→21:54)
[2020-08-26] MEDS: LEVEMIR (INSULIN DETEMIR) 1 UNITS/0.01ML SC SCH ×2 (09:09→21:55)
--- NOTE | 2020-08-26 10:40 | IPNPDOC ---
Date Seen The patient was seen on 08/26/20. Progress Note SUBJECTIVE: Shortness of breath improved. Patient is having difficulty coughing up phlegm, no fever, chills overnight No chest pain, pressure, tightness, no dysphagia, odynophagia. OBJECTIVE PHYSICAL EXAMINATION: VITAL SIGNS: Please see below. Input and output have been reviewed. Patient remains in negative balance GENERAL: Hard of hearing, awake, alert, oriented to person, answers questions appropriately HEENT: Thyromegaly Mild JVD. No cervical lymphadenopathy. Dry mucous membranes. Extra muscles intact CARDIOVASCULAR: S1, S2, sinus rhythm RESPIRATORY: Diminished breath sounds with crackles at the left base ABDOMINAL: Soft, nontender, nondistended, positive bowel sounds EXTREMITIES: Trace bilateral lower extremity edema LABORATORY DATA, IMAGING STUDIES, MICROBIOLOGY: Please see below. CHEST X-RAY 08/24/2020: , Cardiomegaly, stable blunting left costophrenic angle may be chronic and related to pleural thickening or indicate small left effusion, increased opacity at left lung base may indicate an infiltrate as well., Osteoporosis. HOSPITAL MEDICATIONS: Amiodarone requip Humalog insulin sliding scale, potassium, Tylenol eliquis, aspirin, BuSpar, vitamin B12, Cardizem , Ferrous sulfate, Flonase, gabapentin, hydrocortisone, magnesium oxide, nicotine patch, Levemir, Lasix, nystatin, Xanax, Dulcolax, do not nitroglycerin, milk of magnesia, hypoglycemic protocol 08/03/2020. Echocardiogram read by Dr. Zepeda Grade 1 left ventricular diastolic dysfunction with normal preserved left ventricular systolic function, aortic sclerosis, resulting in trace insufficiency and mild stenosis. Trace pericardial effusion. Trace tricuspid insufficiency. Trace pulmonic insufficiency ASSESSMENT AND PLAN: 75-year-old female admitted on 08/24/2020 with complaints of chest pain scribed in the midsternal area, along with shortness of breath, found to have a hemoglobin of 7.8, negative EKG findings and elevated BNP of 1600. She was admitted for congestive heart failure with left pleural effusion and symptomatic anemia with demand mediated ischemia. PROBLEMS: Symptomatic anemia with hemoglobin of 7.8 on hospital presentation and complaints of chest pain Demand mediated ischemia due to chronic anemia Congestive heart failure exacerbation, with preserved systolic function, grade 1 left ventricular diastolic dysfunction Anemia of chronic disease, rule out acute GI blood loss Incidental finding of thyroid nodule Suspected left lower lobe community-acquired pneumonia History CVA and TIA. History of seizures 25 years ago. History of atrial fibrillation. Chronic bronchitis/COPD, compensated. History of recent rib fractures. Chronic adrenal insufficiency. Chronic urine retention. Chronic anxiety. History of alcohol abuse. History of fractured eighth vertebrae. Hypokalemia PLAN: Due to severe anemia with decreasing hemoglobin, despite no overt GI bleed. Patient's own request this be discontinued temporarily until patient's hemoglobin stabilized. She denies any hematemesis, bright blood per rectum now going through stools. Her shortness of breath is improved after blood transfusion and diuresis. She remained in negative balance with current Lasix dose, but complicated by soft blood pressure 100- 110 millimeters of mercury. Her Diuretics have holding parameters, continued basic metabolic panel surveillance to prevent acute kidney injury and azotemia, and to supplement electrolytes as needed. Due to persistent difficult to expectorate Cough, shortness of breath. Patient has been started on IV antibiotics for what is suspected to be a left lower lobe community-acquired pneumonia with ceftriaxone and doxycycline. Despite not having any fever or elevated white count. If the sputum culture is negative, we'll discontinue patient's antibiotic. Thyroid nodules will need to be reevaluated in 3 months time. We will try to obtain a radioactive iodine uptake scan to see whether this is amiodarone-induced thyroid function testing appeared to be within normal limits, may need to discuss with the patient's type bar and segment assembler as they may return should be continued if we believe that this is contributing to the thyroid nodules. VS, I&O, 24H, Fishbone Vital Signs/I&O Vital Signs Date Time Temp Pulse Resp B/P (MAP) Pulse Ox O2 Delivery O2 Flow Rate FiO2 08/26/20 06:43 17 08/26/20 06:24 94 Room Air 08/26/20 06:00 98.5 73 106/47 (66) 08/25/20 08:31 1.0 I&O- Last 24 Hours up to 6 AM 08/26/20 06:00 Intake Total 630 ml Output Total 2000 ml Balance -1370 ml Laboratory Data 24H LABS Laboratory Tests 2 08/25/20 11:49: Anion Gap 6L, Glomerular Filtration Rate > 60.0, Calcium Level 8.1L, Magnesium Level 1.7L 08/25/20 12:04: Bedside Glucose (Misc Panel) 226H 08/25/20 17:15: Bedside Glucose (Misc Panel) 228H 08/25/20 18:22: Anion Gap 10, Glomerular Filtration Rate > 60.0, Calcium Level 7.7L, Magnesium Level 1.9 08/25/20 20:15: Bedside Glucose (Misc Panel) 237H 08/26/20 01:13: 08/26/20 06:07: Nucleated Red Blood Cells % (auto) 0.0, Anion Gap 6L, Glomerular Filtration Rate > 60.0, Calcium Level 7.6L, Magnesium Level 2.0, Troponin I < 0.02, Thyroid Stimulating Hormone (TSH) 0.454, Free Thyroxine Index 2.5, Thyroxine (T4) 7.2, Triiodothyronine (T3) Uptake 35 CBC/BMP Laboratory Tests 08/25/20 11:49 08/25/20 18:22 08/26/20 06:07 Microbiology Microbiology 08/26/20 Blood Culture, Received Pending 08/26/20 Blood Culture, Received Pending MARCELINO GLEASON MD Aug 26, 2020 10:40
[2020-08-26 14:00] VITALS: BP 98/56
--- NOTE | 2020-08-26 17:43 | REPVR ---
PROCEDURE INFORMATION: Exam: XR Chest, 1 View Exam date and time: 08/26/2020 4:40 PM Age: 75 years old Clinical indication: Shortness of breath; Additional info: SOB R/O edema TECHNIQUE: Imaging protocol: XR of the chest Views: 1 view. COMPARISON: CT Chest without contrast 08/25/2020 1:59 PM FINDINGS: Lungs: Degree of lung inflation is normal. No evidence of pulmonary edema. No focal consolidation or parenchymal lung mass. Pleural space: Bilateral pleural effusions blunting the costophrenic angles, as seen on CT yesterday. No pneumothorax.. Heart/Mediastinum: Cardiac silhouette appears normal. No adenopathy or hilar mass. Bones/joints: Osseous structures show no concerning abnormality. Old posttraumatic deformity of the proximal left humerus with residual malalignment. IMPRESSION: Bilateral pleural effusions, left larger than right, as seen on the CT yesterday. No radiographic evidence of underlying active pulmonary edema Electronically signed by: Mohan Domingo On 08/26/2020 17:43:48 PM
[2020-08-26] MEDS: rOPINIRole 1MG TAB PO SCH (21:53)
[2020-08-26 22:00] VITALS: BP 111/58
[2020-08-27] VITALS (11 sets, daily range): BP systolic 115–128; BP diastolic 58–84
[2020-08-27 05:51] LABS: HEMATOCRIT 29.9 % (36.0-47.0); MEAN CORPUSCULAR HEMOGLOBIN 29.3 pg (27.0-33.0); MEAN CORPUSCULAR HGB CONC 30.1 g/dl (32.0-36.5); MEAN CORPUSCULAR VOLUME 97.4 fl (80.0-96.0); PLATELET COUNT, AUTOMATED 554 10^3/uL (150-450); RED BLOOD COUNT 3.07 10^6/uL (4.00-5.40); WHITE BLOOD COUNT 5.9 10^3/uL (4.0-10.0)
[2020-08-27] MEDS ORDERED: MORPHINE 2 MG/ML 1ML VIAL (J2270) IV ONE (06:00)
[2020-08-27 06:14] LABS: BLOOD UREA NITROGEN 24 MG/DL (7-18); CALCIUM LEVEL 7.2 MG/DL (8.8-10.2); CARBON DIOXIDE LEVEL 32 MEQ/L (21-32); CHLORIDE LEVEL 105 MEQ/L (98-107); CREATININE FOR GFR 0.67 MG/DL (0.55-1.30); GLOMERULAR FILTRATION RATE > 60.0 (>39); GLUCOSE, FASTING 277 MG/DL (70-100); POTASSIUM SERUM 4.2 MEQ/L (3.5-5.1); SODIUM LEVEL 142 MEQ/L (136-145)
[2020-08-27 06:27] LABS: ANISOCYTOSIS 1+; ATYPICAL LYMPH 2 % (0-5); HYPOCHROMASIA 1+; LYMPHOCYTES 18 % (16-44); METAMYELOCYTES 1 % (0-0); MONOCYTES 8 % (0-5); MYELOCYTES 2 % (0-0); NEUTROPHILS 68 % (28-66); PLASMA CELL 1 % (0-0); PLATELET ESTIMATE INCREASED (NORMAL)
[2020-08-27] MEDS: LEVALBUTEROL 1.25 MG/0.5 ML CONCENTRATE NEB INH SCH ×4 (07:17→19:58)
[2020-08-27] MEDS ORDERED: IRON POLYSAC (NIFEREX) 150 MG CAP PO SCH (09:00)
[2020-08-27] MEDS ORDERED: FUROSEMIDE 20MG/2ML VIAL (J1940) IV SCH (09:00)
--- NOTE | 2020-08-27 09:15 | ECGEPIP ---
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
[2020-08-27] MEDS: NICOTINE 7 MG/24 HR TRANSDERMAL TOP SCH (09:45)
[2020-08-27] MEDS: HumaLOG INSULIN (NovoLOG) PER UNIT SC SCH ×4 (09:46→21:00)
[2020-08-27] MEDS: LEVEMIR (INSULIN DETEMIR) 1 UNITS/0.01ML SC SCH ×2 (09:46→22:00)
[2020-08-27] MEDS: MAGNESIUM OXIDE 400 MG TAB (MAG-OX) PO SCH ×2 (09:47→20:30)
[2020-08-27] MEDS: ASPIRIN 81 MG CHEW TABLET PO SCH (09:47)
[2020-08-27] MEDS: HYDROCORTISONE 10 MG TAB PO SCH ×2 (09:47→20:30)
[2020-08-27] MEDS: FLUTICASONE PROP 0.05% NASAL SPRAY 16 GM (FLONASE) NARES SCH (09:47)
[2020-08-27] MEDS: POTASSIUM CHLORIDE 10 MEQ SR TABLET PO SCH ×2 (09:47→20:29)
[2020-08-27] MEDS: FERROUS SULFATE 325MG TAB PO SCH (09:47)
[2020-08-27] MEDS: OMEPRAZOLE 20 MG CAP PO SCH (09:48)
[2020-08-27] MEDS: GABAPENTIN 100 MG CAP PO SCH ×3 (09:49→20:30)
[2020-08-27] MEDS: ACETAMINOPHEN TAB 650MG DOSE (2X325MG) PO SCH ×2 (09:49→20:30)
[2020-08-27] MEDS: CYANOCOBALAMIN 500 MCG TAB PO SCH (09:49)
[2020-08-27] MEDS: busPIRone 5 MG TAB PO SCH ×2 (09:49→20:30)
[2020-08-27] MEDS: guaiFENesin ER 600 MG TAB PO SCH ×2 (09:50→20:30)
--- NOTE | 2020-08-27 11:18 | IPNPDOC ---
Date Seen The patient was seen on 08/27/20. Progress Note SUBJECTIVE: Tele overnight: no recurrent sinus pause. sob unchanged. difficult to expectorage cough slightly improved. no fever no chills. c/o generalized weakness. OBJECTIVE PHYSICAL EXAMINATION: VITAL SIGNS: Please see below. Input and output have been reviewed. Patient remains in negative balance GENERAL: Hard of hearing, awake, alert, oriented to person, answers questions appropriately HEENT: Thyromegaly . No cervical lymphadenopathy. Dry mucous membranes. Extra muscles intact CARDIOVASCULAR: S1, S2, sinus rhythm RESPIRATORY: Diminished breath sounds with crackles at the left base ABDOMINAL: Soft, nontender, nondistended, positive bowel sounds EXTREMITIES: Trace bilateral lower extremity edema LABORATORY DATA, IMAGING STUDIES, MICROBIOLOGY: Please see below. CHEST X-RAY 08/24/2020: , Cardiomegaly, stable blunting left costophrenic angle may be chronic and related to pleural thickening or indicate small left effusion, increased opacity at left lung base may indicate an infiltrate as well., Osteoporosis. 08/03/2020. Echocardiogram read by Dr. Zepeda Grade 1 left ventricular diastolic dysfunction with normal preserved left ventricular systolic function, aortic sclerosis, resulting in trace insufficiency and mild stenosis. Trace pericardial effusion. Trace tricuspid insufficiency. Trace pulmonic insufficiency ASSESSMENT AND PLAN: 75-year-old female admitted on 08/24/2020 with complaints of chest pain scribed in the midsternal area, along with shortness of breath, found to have a hemoglobin of 7.8, negative EKG findings and elevated BNP of 1600. She was admitted for congestive heart failure with left pleural effusion and symptomatic anemia with demand mediated ischemia. PROBLEMS: Symptomatic anemia with hemoglobin of 7.8 on hospital presentation and complaints of chest pain, s/p 2urbc Demand mediated ischemia due to chronic anemia Congestive heart failure exacerbation, with preserved systolic function, grade 1 left ventricular diastolic dysfunction Anemia of chronic disease, rule out acute GI blood loss Incidental finding of thyroid nodules, with normal Thyroid Function Tests , on chronic amiodarone Suspected left lower lobe community-acquired pneumonia History CVA and TIA. History of seizures 25 years ago. History of atrial fibrillation. Chronic bronchitis/COPD, compensated. History of recent rib fractures. Chronic adrenal insufficiency. Chronic urine retention. Chronic anxiety. History of alcohol abuse. History of fractured eighth vertebrae. 2.2 second sinus pause PLAN: Per 's request, both cardiology Dr. Zepeda and nephrology Dr. Deutsch have been consulted. s/p iv ceftriaxone and iv doxycycline for presumed PNA on CT chest, but no fever or white count; thus, iv abx discontinued. pt remains hypotensive at times limiting diuresis with lasix. pt is on midodrine for chronic hypotension making diuresis difficult. eliquis discontinued due to anemia rquiring 2u rbc transfusion. continued on asa. no blood in stool x 1. no recurrent sinus pause. on amiodarone with normal TFTs. thyroid nodules to be mo nitored as outpt and refer for biopsy if >1.5. VS, I&O, 24H, Fishbone Vital Signs/I&O Vital Signs Date Time Temp Pulse Resp B/P (MAP) Pulse Ox O2 Delivery O2 Flow Rate FiO2 08/27/20 06:00 97.3 97 16 120/59 (79) 100 Nasal Cannula 1.0 I&O- Last 24 Hours up to 6 AM 08/27/20 06:00 Intake Total 1430 ml Output Total 775 ml Balance 655 ml Laboratory Data 24H LABS Laboratory Tests 2 08/26/20 11:25: Bedside Glucose (Misc Panel) 239H 08/26/20 17:27: Bedside Glucose (Misc Panel) 255H 08/26/20 21:10: Bedside Glucose (Misc Panel) 292H 08/27/20 05:33: Immature Granulocyte % (Auto) , Neutrophils (%) (Auto) , Nucleated Red Blood Cells % (auto) 0.0, Neutrophils 68H, Lymphocytes (Manual) 18, Monocytes (Manual) 8H, Metamyelocytes 1H, Myelocytes 2H, Atypical Lymphocytes 2, Plasma Cells 1H, Hypochromasia 1+, Anisocytosis 1+, Microcytosis , Platelet Estimate INCREASED, Anion Gap 5L, Glomerular Filtration Rate > 60.0, Calcium Level 7.2L, Troponin I 0.02 CBC/BMP Laboratory Tests 08/27/20 05:33 Microbiology Microbiology 08/27/20 Stool Occult Blood (KENYA) - Final, Complete 08/26/20 Blood Culture - Preliminary, Resulted No growth after 24 hours . All specim... 08/26/20 Blood Culture - Preliminary, Resulted No growth after 24 hours . All specim... MARCELINO GLEASON MD Aug 27, 2020 11:15
[2020-08-27] MEDS: HYDROCORTISONE 5MG TABLET PO SCH (12:06)
[2020-08-27] MEDS: FUROSEMIDE 40MG/4ML VIAL (J1940) IV SCH ×2 (12:40→17:42)
[2020-08-27] MEDS ORDERED: FERRIC CARBOXYMALTOSE INJ 750 MG in NS 250 ML IV ONE (13:00)
[2020-08-27] MEDS: rOPINIRole 1MG TAB PO SCH (20:30)
[2020-08-27 21:49] LABS: HEMATOCRIT 36.4 % (36.0-47.0)
[2020-08-27 21:52] LABS: HEMOGLOBIN 11.4 g/dl (12.0-15.5)
[2020-08-28] MEDS: FUROSEMIDE 40MG/4ML VIAL (J1940) IV SCH ×4 (00:21→17:27)
[2020-08-28 06:00] VITALS: BP 125/66
[2020-08-28 06:49] LABS: HEMATOCRIT 34.4 % (36.0-47.0); HEMOGLOBIN 10.6 g/dl (12.0-15.5); MEAN CORPUSCULAR HEMOGLOBIN 29.7 pg (27.0-33.0); MEAN CORPUSCULAR HGB CONC 30.8 g/dl (32.0-36.5); MEAN CORPUSCULAR VOLUME 96.4 fl (80.0-96.0); PLATELET COUNT, AUTOMATED 568 10^3/uL (150-450); RED BLOOD COUNT 3.57 10^6/uL (4.00-5.40); WHITE BLOOD COUNT 8.3 10^3/uL (4.0-10.0)
[2020-08-28 06:58] LABS: BLOOD UREA NITROGEN 19 MG/DL (7-18); CALCIUM LEVEL 7.1 MG/DL (8.8-10.2); CARBON DIOXIDE LEVEL 36 MEQ/L (21-32); CHLORIDE LEVEL 104 MEQ/L (98-107); CREATININE FOR GFR 0.56 MG/DL (0.55-1.30); GLOMERULAR FILTRATION RATE > 60.0 (>39); GLUCOSE, FASTING 110 MG/DL (70-100); POTASSIUM SERUM 4.3 MEQ/L (3.5-5.1); SODIUM LEVEL 143 MEQ/L (136-145)
[2020-08-28] MEDS: LEVALBUTEROL 1.25 MG/0.5 ML CONCENTRATE NEB INH SCH ×4 (07:05→20:05)
[2020-08-28 07:39] LABS: ATYPICAL LYMPH 1 % (0-5); EOSINOPHILS 1 % (0-3); LYMPHOCYTES 18 % (16-44); METAMYELOCYTES 3 % (0-0); MONOCYTES 5 % (0-5); MYELOCYTES 5 % (0-0); NEUTROPHILS 65 % (28-66)
[2020-08-28 07:40] LABS: PLATELET ESTIMATE INCREASED (NORMAL)
[2020-08-28 07:41] LABS: POLYCHROMASIA 1+
[2020-08-28 07:43] LABS: ANISOCYTOSIS 1+
[2020-08-28] MEDS: NICOTINE 7 MG/24 HR TRANSDERMAL TOP SCH (09:04)
[2020-08-28] MEDS: FLUTICASONE PROP 0.05% NASAL SPRAY 16 GM (FLONASE) NARES SCH (09:05)
[2020-08-28] MEDS: LEVEMIR (INSULIN DETEMIR) 1 UNITS/0.01ML SC SCH ×2 (09:05→20:42)
[2020-08-28] MEDS: HumaLOG INSULIN (NovoLOG) PER UNIT SC SCH ×4 (09:05→20:40)
[2020-08-28] MEDS: POTASSIUM CHLORIDE 10 MEQ SR TABLET PO SCH ×2 (09:06→20:42)
[2020-08-28] MEDS: ACETAMINOPHEN TAB 650MG DOSE (2X325MG) PO SCH ×2 (09:07→20:39)
[2020-08-28] MEDS: MAGNESIUM OXIDE 400 MG TAB (MAG-OX) PO SCH ×2 (09:07→20:41)
[2020-08-28] MEDS: CYANOCOBALAMIN 500 MCG TAB PO SCH (09:07)
[2020-08-28] MEDS: GABAPENTIN 100 MG CAP PO SCH ×3 (09:07→20:40)
[2020-08-28] MEDS: FERROUS SULFATE 325MG TAB PO SCH (09:07)
[2020-08-28] MEDS: OMEPRAZOLE 20 MG CAP PO SCH (09:07)
[2020-08-28] MEDS: busPIRone 5 MG TAB PO SCH ×2 (09:08→20:42)
[2020-08-28] MEDS: guaiFENesin ER 600 MG TAB PO SCH ×2 (09:08→20:41)
[2020-08-28] MEDS: HYDROCORTISONE 5MG TABLET PO SCH (09:09)
--- NOTE | 2020-08-28 10:05 | IPNPDOC ---
Date Seen The patient was seen on 08/28/20. Progress Note SUBJECTIVE: pt says sob is only slightly improved. diuresed well overnight and net negative balance. no c/o cp, pressure. having bm right now. no n/v. decreased appetite but tolerating diet. no fever chills. decreased cough. not much sputum. OBJECTIVE PHYSICAL EXAMINATION: VITAL SIGNS: Please see below. Input and output have been reviewed. Patient remains in negative balance GENERAL: Hard of hearing, awake, alert, oriented to person, answers questions appropriately HEENT: Thyromegaly . No cervical lymphadenopathy. Dry mucous membranes. Extra muscles intact CARDIOVASCULAR: S1, S2, sinus rhythm nondisplaced PMI RESPIRATORY: Diminished breath sounds with crackles at the left base AEBE ABDOMINAL: Soft, nontender, nondistended, positive bowel sounds EXTREMITIES: Trace bilateral lower extremity edema LABORATORY DATA, IMAGING STUDIES, MICROBIOLOGY: Please see below. CHEST X-RAY 08/24/2020: , Cardiomegaly, stable blunting left costophrenic angle may be chronic and related to pleural thickening or indicate small left effusion, increased opacity at left lung base may indicate an infiltrate as well., Osteoporosis. 08/03/2020. Echocardiogram read by Dr. Zepeda Grade 1 left ventricular diastolic dysfunction with normal preserved left ventricular systolic function, aortic sclerosis, resulting in trace insufficiency and mild stenosis. Trace pericardial effusion. Trace tricuspid in sufficiency. Trace pulmonic insufficiency ASSESSMENT AND PLAN: 75-year-old female admitted on 08/24/2020 with complaints of chest pain scribed in the midsternal area, along with shortness of breath, found to have a hemoglobin of 7.8, negative EKG findings and elevated BNP of 1600. She was admitted for congestive heart failure with left pleural effusion and symptomatic anemia with demand mediated ischemia. PROBLEMS: Symptomatic anemia with hemoglobin of 7.8 on hospital presentation and complaints of chest pain, s/p 2urbc Demand mediated ischemia due to chronic anemia Congestive heart failure exacerbation, with preserved systolic function, grade 1 left ventricular diastolic dysfunction Anemia of chronic disease, rule out acute GI blood loss Incidental finding of thyroid nodules Suspected left lower lobe community-acquired pneumonia History CVA and TIA. History of seizures 25 years ago. History of atrial fibrillation, chronic Chronic bronchitis/COPD, compensated. History of recent rib fractures. Chronic adrenal insufficiency. Chronic urine retention. Chronic anxiety. History of alcohol abuse. History of fractured eighth vertebrae. 2.2 second sinus pause Abnormal CBC with metamyelocytes Debility/Deconditioning PLAN: Per [employer] mission support specialist, Dr. Gallego, pt's differential may be reactive, and should be monitored with repeat differential for now. She is diuresing well per nephrology mgt, and per Dr. Zepeda, may be resumed on anticoagulation if no othe r contraindications. no gi bleed. Per ENT, Dr. Graham,FNABx of thyroid nodules once pt is stable. will need to arrange as outpt. PT/OT/ARU screen . VS, I&O, 24H, Fishbone Vital Signs/I&O Vital Signs Date Time Temp Pulse Resp B/P (MAP) Pulse Ox O2 Delivery O2 Flow Rate FiO2 08/28/20 06:00 98.8 90 18 125/66 (85) 96 08/27/20 20:20 Nasal Cannula 1.0 I&O- Last 24 Hours up to 6 AM 08/28/20 06:00 Intake Total 2075 ml Output Total 4550 ml Balance -2475 ml Laboratory Data 24H LABS Laboratory Tests 2 08/27/20 11:37: Bedside Glucose (Misc Panel) 167H 08/27/20 17:18: Bedside Glucose (Misc Panel) 125H 08/27/20 21:10: Bedside Glucose (Misc Panel) 208H 08/28/20 04:29: Bedside Glucose (Misc Panel) 123H 08/28/20 06:16: Immature Granulocyte % (Auto) , Neutrophils (%) (Auto) , Reticulocyte # (auto) 138.5H, Nucleated Red Blood Cells % (auto) 0.6H, Neutrophils 65, Band Neutrophils 2, Lymphocytes (Manual) 18, Monocytes (Manual) 5, Eosinophils (Manual) 1, Metamyelocytes 3H, Myelocytes 5H, Atypical Lymphocytes 1, Polychromasia 1+, Basophilic Stippling 1+, Anisocytosis 1+, Platelet Estimate INCREASED, Percent Reticulocyte Count 3.9H, Reticulocyte Hemoglobin Equivalent 34.3, Anion Gap 3L, Glomerular Filtration Rate > 60.0, Calcium Level 7.1L CBC/BMP Laboratory Tests 08/27/20 21:36 08/28/20 06:16 Microbiology Microbiology 08/27/20 Stool Occult Blood (KENYA) - Final, Complete 08/26/20 Blood Culture - Preliminary, Resulted No Growth after 48 hours. All Specime... 08/26/20 Blood Culture - Preliminary, Resulted No Growth after 48 hours. All Specime... MARCELINO GLEASON MD Aug 28, 2020 10:05
[2020-08-28 14:00] VITALS: BP 104/71
[2020-08-28] MEDS: rOPINIRole 1MG TAB PO SCH (20:41)
[2020-08-28] MEDS: HYDROCORTISONE 10 MG TAB PO SCH (20:42)
[2020-08-28] MEDS: diphenhydrAMINE 50MG CAP PO PRN (21:26)
[2020-08-28 22:00] VITALS: BP 120/59
[2020-08-29 06:00] VITALS: BP 118/59
[2020-08-29 06:20] LABS: HEMATOCRIT 35.6 % (36.0-47.0); HEMOGLOBIN 10.8 g/dl (12.0-15.5); MEAN CORPUSCULAR HEMOGLOBIN 29.5 pg (27.0-33.0); MEAN CORPUSCULAR HGB CONC 30.3 g/dl (32.0-36.5); MEAN CORPUSCULAR VOLUME 97.3 fl (80.0-96.0); PLATELET COUNT, AUTOMATED 535 10^3/uL (150-450); RED BLOOD COUNT 3.66 10^6/uL (4.00-5.40); WHITE BLOOD COUNT 8.7 10^3/uL (4.0-10.0)
[2020-08-29 06:34] LABS: ANISOCYTOSIS 1+; BASOPHILS 1 % (0-1); BLOOD UREA NITROGEN 16 MG/DL (7-18); CALCIUM LEVEL 7.1 MG/DL (8.8-10.2); CARBON DIOXIDE LEVEL 35 MEQ/L (21-32); CHLORIDE LEVEL 104 MEQ/L (98-107); GLOMERULAR FILTRATION RATE > 60.0 (>39); GLUCOSE, FASTING 72 MG/DL (70-100); LYMPHOCYTES 19 % (16-44); METAMYELOCYTES 1 % (0-0); MONOCYTES 10 % (0-5); MYELOCYTES 5 % (0-0); NEUTROPHILS 64 % (28-66); PLATELET ESTIMATE INCREASED (NORMAL); POIKILOCYTOSIS 1+; POLYCHROMASIA 1+; POTASSIUM SERUM 4.4 MEQ/L (3.5-5.1); SODIUM LEVEL 144 MEQ/L (136-145)
[2020-08-29] MEDS: HumaLOG INSULIN (NovoLOG) PER UNIT SC SCH ×4 (07:30→20:52)
[2020-08-29] MEDS: LEVALBUTEROL 1.25 MG/0.5 ML CONCENTRATE NEB INH SCH ×4 (07:42→20:00)
--- NOTE | 2020-08-29 08:38 | IPNPDOC ---
Date Seen The patient was seen on 08/29/20. Progress Note SUBJECTIVE: c/o insomnia, and says she takes tylenol pm at home that helps her sleep. no gi bleed . per cardio, ok to restart AC for Afib. no c/o sob, chest pain, pressure. no dysphagia despite thyroid nodule. per dr. Graham, can do FNABx to evaluate nodule. OBJECTIVE PHYSICAL EXAMINATION: VITAL SIGNS: Please see below. Input and output have been reviewed. Patient remains in negative balance GENERAL: Hard of hearing, no distressawake, alert, oriented to person, answers questions appropriately HEENT: Thyromegaly . No cervical lymphadenopathy. Dry mucous membranes. Extra muscles intact CARDIOVASCULAR: S1, S2, sinus rhythm nondisplaced PMI pulses intact RESPIRATORY: Diminished breath sounds with crackles at the left base AEBE ABDOMINAL: Soft, nontender, nondistended, positive bowel sounds EXTREMITIES: Trace bilateral lower extremity edema LABORATORY DATA, IMAGING STUDIES, MICROBIOLOGY: Please see below. CHEST X-RAY 08/24/2020: , Cardiomegaly, stable blunting left costophrenic angle may be chronic and related to pleural thickening or indicate small left effusion, increased opacity at left lung base may indicate an infiltrate as well., Osteoporosis. 08/03/2020. Echocardiogram read by Dr. Zepeda Grade 1 left ventricular diastolic dysfunction with normal preserved left vent ricular systolic function, aortic sclerosis, resulting in trace insufficiency and mild stenosis. Trace pericardial effusion. Trace tricuspid insufficiency. Trace pulmonic insufficiency ASSESSMENT AND PLAN: 75-year-old female admitted on 08/24/2020 with complaints of chest pain scribed in the midsternal area, along with shortness of breath, found to have a hemoglobin of 7.8, negative EKG findings and elevated BNP of 1600. She was admitted for congestive heart failure with left pleural effusion a nd symptomatic anemia with demand mediated ischemia. PROBLEMS: Symptomatic anemia with hemoglobin of 7.8 on hospital presentation and complaints of chest pain, s/p 2urbc Demand mediated ischemia due to chronic anemia Congestive heart failure exacerbation, with preserved systolic function, grade 1 left ventricular diastolic dysfunction Anemia of chronic disease, rule out acute GI blood loss Incidental finding of thyroid nodules Suspected left lower lobe community-acquired pneumonia History CVA and TIA. History of seizures 25 years ago. History of atrial fibrillation, chronic Chronic bronchitis/COPD, compensated. History of recent rib fractures. Chronic adrenal insufficiency. Chronic urine retention. Chronic anxiety. History of alcohol abuse. History of fractured eighth vertebrae. 2.2 second sinus pause Abnormal CBC with metamyelocytes Debility/Deconditioning insomnia PLAN: Per Lead Clinical Research Coordinator, Dr. Gallego, abnormal differential needs to be monitored with daily check, but may be reactive. may restart ac per cardio. nephrology managing diruesis. outpt referral to ENT for thyroid nodule, and FNAB. dc radioactive thyroid uptake scan which will not change attendant because pt will still need FNAB. PT/OT. once euvolemic, dc home as outpt with fu w cardio, nephrology, and ENT. PRN trazodone. VS, I&O, 24H, Fishbone Vital Signs/I&O Vital Signs Date Time Temp Pulse Resp B/P (MAP) Pulse Ox O2 Delivery O2 Flow Rate FiO2 08/29/20 06:00 98.0 72 18 118/59 (78) 90 08/28/20 22:00 Room Air 08/27/20 20:20 1.0 I&O- Last 24 Hours up to 6 AM 08/29/20 06:00 Intake Total 840 ml Output Total 4400 ml Balance -3560 ml Laboratory Data 24H LABS Laboratory Tests 2 08/28/20 11:35: Bedside Glucose (Misc Panel) 82L 08/28/20 16:31: Bedside Glucose (Misc Panel) 267H 08/28/20 19:50: Bedside Glucose (Misc Panel) 131H 08/29/20 05:52: Immature Granulocyte % (Auto) , Neutrophils (%) (Auto) , Reticulocyte # (auto) 149.7H, Nucleated Red Blood Cells % (auto) 0.3H, Neutrophils 64, Lymphocytes (Manual) 19, Monocytes (Manual) 10H, Basophils (Manual) 1, Metamyelocytes 1H, Myelocytes 5H, Polychromasia 1+, Poikilocytosis 1+, Basophilic Stippling 1+, Anisocytosis 1+, Platelet Estimate INCREASED, Percent Reticulocyte Count 4.1H, Reticulocyte Hemoglobin Equivalent 35.7, Anion Gap 5L, Glomerular Filtration Rate > 60.0, Calcium Level 7.1L CBC/BMP Laboratory Tests 08/29/20 05:52 Microbiology Microbiology 08/27/20 Stool Occult Blood (KENYA) - Final, Complete 08/26/20 Blood Culture - Preliminary, Resulted No Growth after 48 hours. All Specime... 08/26/20 Blood Culture - Preliminary, Resulted No Growth after 72 hours. All specime... MARCELINO GLEASON MD Aug 29, 2020 08:38
[2020-08-29] MEDS ORDERED: traZODone 25MG PER 1/2 TABLET PO PRN (08:45)
[2020-08-29] MEDS: LEVEMIR (INSULIN DETEMIR) 1 UNITS/0.01ML SC SCH ×2 (09:00→21:40)
[2020-08-29] MEDS: FUROSEMIDE 40MG/4ML VIAL (J1940) IV SCH ×3 (09:09→17:00)
[2020-08-29] MEDS: MAGNESIUM OXIDE 400 MG TAB (MAG-OX) PO SCH ×2 (09:10→21:41)
[2020-08-29] MEDS: OMEPRAZOLE 20 MG CAP PO SCH (09:11)
[2020-08-29] MEDS: guaiFENesin ER 600 MG TAB PO SCH ×2 (09:11→21:39)
[2020-08-29] MEDS: POTASSIUM CHLORIDE 10 MEQ SR TABLET PO SCH ×2 (09:11→21:42)
[2020-08-29] MEDS: FERROUS SULFATE 325MG TAB PO SCH (09:11)
[2020-08-29] MEDS: AMIODARONE 200 MG TAB (PACERONE) PO SCH (09:13)
[2020-08-29] MEDS: busPIRone 5 MG TAB PO SCH ×2 (09:13→21:39)
[2020-08-29] MEDS: ACETAMINOPHEN TAB 650MG DOSE (2X325MG) PO SCH ×2 (09:13→21:40)
[2020-08-29] MEDS: CYANOCOBALAMIN 500 MCG TAB PO SCH (09:13)
[2020-08-29] MEDS: GABAPENTIN 100 MG CAP PO SCH ×3 (09:13→21:42)
[2020-08-29] MEDS: NICOTINE 7 MG/24 HR TRANSDERMAL TOP SCH (09:17)
[2020-08-29] MEDS: FLUTICASONE PROP 0.05% NASAL SPRAY 16 GM (FLONASE) NARES SCH (09:18)
[2020-08-29] MEDS: HYDROCORTISONE 5MG TABLET PO SCH (10:13)
[2020-08-29] MEDS: APIXABAN 5 MG TAB (ELIQUIS) PO SCH ×2 (10:13→21:39)
--- NOTE | 2020-08-29 10:34 | CR ---
REFERRING PHYSICIAN: Dr. Cortés INDICATION: Shortness of breath, chest discomfort. Mrs. Solano is a pleasant 75-year-old female who was admitted to hospital on August 24 for shortness of breath and chest discomfort. It is not completely clear to me how long was the history of her symptoms prior to presenting to the hospital, but it seems to me that it was something that was gradually progressive rather than sudden onset. The shortness of breath was the dominant complaint. She says that she has these pressure-like feelings that are across the whole precordium, but she cannot quite time them. Based on my understanding, they can last hours at a time. Did not have any miguel paroxysmal nocturnal dyspnea (PND) but has had peripheral edema. The evaluation in the emergency room was interpreted as her presenting congestive heart failure, and she was also found to be significantly anemic. She received blood transfusions times two, and today she tells me that she feels slightly better but not much. She also continues to feel tired all the time. So far, there has not been any obvious evolution on her EKG, and her cardiac enzymes stayed negative. The admission N-terminal proBNP was 1650, which is a little higher than her baseline. MEDICAL HISTORY: 1. History of paroxysmal supraventricular tachycardia and atrial fibrillation. She started presenting in June 2019, so approximately a year ago. Her episodes were always severely symptomatic, and it was impossible to control her supraventricular tachycardia (SVT) by combination of beta jamal, calcium channel jamal, and digoxin, so eventually amiodarone was started in July 2019 and slowly tapered down. Currently she takes 200 mg three times a week. 2. No known coronary artery disease. She had heart catheterization in June 2019 that revealed no significant coronary artery disease (CAD). 3. Mild aortic stenosis. 4. Chronic adrenal insufficiency. 5. History of cervical cord compression with myelopathy. She had fairly large surgery last year. 6. Chronic obstructive pulmonary disease (COPD). 7. Type 2 diabetes. 8. Hypertension. 9. Hyperlipidemia. 10. Restless leg syndrome. 11. Subluxation of right shoulder. SURGICAL HISTORY: 1. Breast biopsy. 2. Cervical spine surgery. 3. Hysterectomy. FAMILY HISTORY: Her father had diabetes. Mother had COPD. SOCIAL HISTORY: Patient was an active smoker until her surgery last year for many years. She is and no significant alcohol use. REVIEW OF SYSTEMS: She denies any recent fever, chills, nausea, vomiting, or diarrhea. She also denies noticing any blood in her stools or melena. Chest pain and shortness of breath as per history of present illness (HPI). She does admit that she has had peripheral edema, even though she cannot provide much information about its timing, but it appears that it is something that is more chronic than acute. PHYSICAL EXAMINATION: Mrs. Solano is an elderly female who appears at least as old as her age. She appears chronically but not acutely ill. Current vital signs: Blood pressure 120/59. Heart rate has been in 80s and 90s in sinus rhythm with occasional premature atrial contractions (PACs). At night she had a couple pauses around 2 seconds. She is afebrile. Saturation is 100% on 1 liter oxygen by nasal cannula. Her weight on admission was recorded as 60.9 kg. Her fluid balance yesterday was approximately equal, and also she put out about 600 mL of urine so far today. She is alert, oriented, and appropriate. Appears very frail. Her jugular venous pressure (JVP) does not appear grossly elevated, possibly 4-5 cm above clavicle. Lungs are diminished over both bases. I do not appreciate any wheezes, crackles, or rhonchi, but her respiratory effort is quite poor, and the air movement is also relatively poor. Heart exam reveals regular rhythm with occasional ectopy. There is a murmur heard best over the upper precordium radiating toward her neck. The second heart sound is preserved. Abdomen is soft without obvious tenderness or rebound tenderness. She has about 2+ edema to three-quarters of her shins. Elastic stockings are in place. Neurologically there is generalized weakness, but I do not appreciate any focal signs. LABORATORY DATA: CBC as of today: WBC count of 5.9, hemoglobin 9.0, hematocrit 29.9, and platelet count 554,000. In the differential there is 688% neutrophils, 18 lymphocytes, 8 monocytes, 1 metamyelocyte, 2 myelocytes, and 1% of plasma cells. Basic metabolic panel otherwise is essentially normal but for glucose 277. BUN is 24, creatinine 0.7. Troponin has been negative. Procalcitonin is 0.27. TSH is 0.45. INR is 1.3. Chest x-ray reveals evidence for bilateral pleural effusions, more the left than right, but no obvious venous redistribution. ASSESSMENT AND PLAN: Mrs. Solano is a 75-year-old female who presents with principally dyspnea. She is found to be significantly anemic, which is likely principally iron deficiency anemia, and she has bilateral pleural effusions. Her albumin level is very low at 1.6 on August 24. Even though her BNP is elevated, I am not completely convinced that this is consistent with congestive heart failure. I do believe that the principal problem underlying her peripheral edema and pleural effusions is hypoalbuminemia and I suspect underlying malnutrition. Obviously the anemia is strongly contributing. She is iron deficient, and iron needs to be vigorously supplemented. I am also worried about her differential in her complete blood count (CBC). She has plasma cells and metamyelocytes and myelocytes in peripheral blood, which is certainly abnormal. Even though it could be a sign of underlying iron deficiency, I am worried whether she could have underlying hematologic malignancy or dyscrasia of some sorts. I believe that this should be further looked at. From my perspective, I do not have much to add. As far as her arrhythmic history is concerned, I would continue her current medications. She is on small dose of amiodarone three times a week, which I think can be continued. She was so severely symptomatic with her episodes of SVT and atrial fibrillation that I am reluctant to discontinue the medication. On the other hand, I do recommend to discontinue aspirin and leave her on Eliquis only. Her stools are guaiac negative, so she does not have active bleeding, but she does not have any established coronary artery disease, and the risk of bleeding is certainly much higher if aspirin is added to anticoagulation. As far as the diuresis is concerned, I do agree with current dose of furosemide, but, again, I believe that the principal problem is nutritional, for which I do not see any quick fix. Of note, there is no protein in her urine, so this is not the source of hypoalbuminemia. I will follow patient with you. GWEN
--- NOTE | 2020-08-29 10:36 | CR ---
REQUESTING PHYSICIAN: Dr. Laura Mcwilliams CONSULTING PHYSICIAN: Dr. Félix Deutsch MD REASON FOR CONSULTATION: Management of congestive heart failure and adrenal insufficiency. CHIEF COMPLAINT: The patient presented to the hospital on August 25, 2020 with chest pain and shortness of breath. HISTORY OF PRESENT ILLNESS: Laura Solano is a 75-year-old female with a past medical history of diabetes mellitus type 2, atrial fibrillation, hypertension, multiple other comorbidities as mentioned below. She presented to the hospital two days ago with midsternal chest pain along with shortness of breath and back pain. She was initially given nitroglycerin at [facility] for chest pain but her blood pressure dropped to 70s. Initially EKG was negative for any ischemic changes. She was admitted under the Hospitalist service for chest pain rule out ACS and congestive heart failure exacerbation. She was started on IV Lasix twice a day. However, despite the use of Lasix 20 mg IV twice a day, the patient still had signs of volume overload and she also takes Hydrocortisone for adrenal insufficiency. A Nephrology service consult was requested for further help in the management of this patient. I saw and evaluated the patient today in the morning at the bedside. She still complained of shortness of breath and lower extremity edema. I talked to her over the phone as well and got some of her history from the as well. PAST MEDICAL HISTORY: The patient's past medical history is significant for: * Chronic diastolic congestive heart failure. * History of TIAs in the past. * History of seizure disorder. * Supraventricular tachycardia in the past. * Atrial fibrillation. * Chronic bronchitis. * Chronic obstructive pulmonary disease. * Rib fractures about 4 weeks ago. * History of small-bowel obstruction. * Adrenal insufficiency. * Urinary retention in the past. * Arthritis. * Anxiety. * Anemia. * Fracture of the 8th vertebra. PAST SURGICAL HISTORY: The patient's past surgical history is significant for: * Status post bilateral cataract surgery. * History of left breast biopsy in the past. * Status post hysterectomy. * History of cervical and thoracic spine surgery. ALLERGIES: Propoxyphene. FAMILY HISTORY: The patient's family history is positive for diabetes in the father and chronic obstructive pulmonary disease in mother. SOCIAL HISTORY: She denies any illicit drug abuse or alcohol abuse. She is an active smoker. REVIEW OF SYSTEMS: Constitutional: She denies any fevers or chills. Eyes: She denies any blurry vision, double vision. ENT: She denies any dysphagia, odynophagia. Cardiovascular: She reports the chest pain and some shortness of breath. Respiratory: She reports shortness of breath. She denies any cough. GI: She denies any nausea, vomiting. Genitourinary: She reports history of urinary retention in the past. Musculoskeletal: She denies any muscles aches and pains. Skin: She denies any rashes or ulcer. Endocrine: She reports history of diabetes mellitus type 2. Hematological/Oncological: She denies any easy bleeding or bruising. Psych: She denies any depression or anxiety. AUTOMATION CONSULTANT: She denies any weakness. All other review of systems is negative. PHYSICAL EXAMINATION: GENERAL APPEARANCE: The patient is awake, alert, oriented x2, laying in bed. VITAL SIGNS: Temperature is 98.7 degrees Fahrenheit, blood pressure 120/60, pulse is 106, respiratory rate of 18, saturating 98% on nasal cannula at one liter. HEAD AND NECK: The extraocular muscles are intact. Pupils are equally round and reactive to light. Mucous membranes are moist. Neck is supple, mildly elevated jugular venous distention. CARDIOVASCULAR: S1, S2, irregular heart rate. EXTREMITIES: 1+ edema of the bilateral lower extremities and 2+ edema of the bilateral lower extremities. RESPIRATORY: Decreased breath sounds at the bases. No active rales or rhonchi. ABDOMEN: Soft, positive bowel sounds, nontender. MUSCULOSKELETAL: No clubbing or cyanosis, 2+ edema of the lower extremities as mentioned above. AUTOMATION CONSULTANT: No focal deficits. 5/5 strength in the bilateral upper extremities. LABORATORY DATA: CBC showed a WBC of 5.9, hemoglobin is 9, platelets 554. BMP done today morning showed sodium 142, potassium 4.2, chloride 105, bicarbonate 32, BUN 24, creatinine 0.67, glucose of 277, calcium 7.2. Troponin 0.02. Pro calcitonin 0.27, TSH is 0.45, free T-4 is 1.5. Microbiology: All the cultures are negative so far. IMAGING: A CT of the chest was done on August 25 that showed scattered bronchial wall thickening, small bronchial mucous plugging, small left pleural effusion, very small right pleural effusion, mild cardiomegaly, nonspecific left breast 1.7 cm mass. CURRENT INPATIENT MEDICATIONS: The patient's medications were all reviewed by myself. She is currently on: * Mucinex. * Tylenol p.r.n. * Xanax one mg p.o. as needed. * Amiodarone 200 mg p.o. Saturday, Saturday, Saturday. * Aspirin 81 mg p.o. daily. * Buspirone 5 mg p.o. twice a day. * Vitamin B-12 500 mcg p.o. daily. * Iron tablet 325 mg p.o. daily. * Lasix 20 mg IV twice daily. * Gabapentin 100 mg p.o. three times daily. * Hydrocortisone 20 mg p.o. twice daily. * Insulin Levemir 80 units subcutaneously twice daily. * Insulin sliding scale. * She is also on Iron Polysaccharide I am going to stop this. * Xopenex p.r.n. * Magnesium Oxide 400 mg p.o. twice daily. * Morphine Sulfate one dose was given today. * Nystatin p.r.n. * Omeprazole 40 mg p.o. daily. * Potassium Chloride 40 mEq p.o. twice daily. * Requip one mg q. h.s. ASSESSMENT AND PLAN: * Acute decompensated diastolic congestive heart failure - The patient is significantly volume overloaded. Current diuretic dose is not adequate. I have changed the patient's Lasix dose to 40 mg IV q. 6 hourly. Echocardiogram done last month was reviewed. She has a preserved LV systolic function with grade one diastolic dysfunction. Continue the diuresis and she is on very high dose of Hydrocortisone which causes salt and fluid retention. I have decreased the Hydrocortisone dose as mentioned below. * Adrenal insufficiency I talked to the patient's . The patient's told me that Hydrocortisone dose was increased after a spinal surgery and it was never decreased after that. At this time because of congestive heart failure, I am going to decrease the Hydrocortisone dose to 15 mg in the morning and 10 mg in the evening. It will help improve the patient's hypokalemia as well. * Hypokalemia it is secondary to the use of diuretics and Hydrocortisone. Continue Potassium Chloride 40 mEq p.o. twice a day. * Atrial fibrillation rate is controlled at this time. She is currently on Amiodarone. * Iron deficiency anemia - The patients iron levels were low during this hospitalization. Labs were checked on August 24. She is currently on oral iron. I have given her a dose of IV Injectafer 750 mg times one dose. * Diabetes mellitus type 2 - continue current dose of insulin. No LUIS/ARB at this time. Plan of care was discussed with the patient's over the phone as well. Thank you for involving me in the care of this patient. I shall be happy to follow the patient along with you tomorrow morning. MTDD
--- NOTE | 2020-08-29 11:25 | IPNPDOC ---
Date Seen The patient was seen on 08/29/20. Progress Note SUBJECTIVE: Patient is a [75]-year-old [white] [female] with [petechia] was called over weekend for bleeding from the [facility] [place] [facility] labs revealed that the patient had coagulopathy i suggested aminocaproic acid currently the patient is transferred to the regular floor and not bleeding re-call as needed VS, I&O, 24H, Fishbone Vital Signs/I&O Vital Signs Date Time Temp Pulse Resp B/P (MAP) Pulse Ox O2 Delivery O2 Flow Rate FiO2 08/29/20 06:00 98.0 72 18 118/59 (78) 90 08/28/20 22:00 Room Air 08/27/20 20:20 1.0 I&O- Last 24 Hours up to 6 AM 08/29/20 06:00 Intake Total 840 ml Output Total 4400 ml Balance -3560 ml Laboratory Data 24H LABS Laboratory Tests 2 08/28/20 11:35: Bedside Glucose (Misc Panel) 82L 08/28/20 16:31: Bedside Glucose (Misc Panel) 267H 08/28/20 19:50: Bedside Glucose (Misc Panel) 131H 08/29/20 05:52: Immature Granulocyte % (Auto) , Neutrophils (%) (Auto) , Reticulocyte # (auto) 149.7H, Nucleated Red Blood Cells % (auto) 0.3H, Neutrophils 64, Lymphocytes (Manual) 19, Monocytes (Manual) 10H, Basophils (Manual) 1, Metamyelocytes 1H, Myelocytes 5H, Polychromasia 1+, Poikilocytosis 1+, Basophilic Stippling 1+, Anisocytosis 1+, Platelet Estimate INCREASED, Percent Reticulocyte Count 4.1H, Reticulocyte Hemoglobin Equivalent 35.7, Anion Gap 5L, Glomerular Filtration Rate > 60.0, Calcium Level 7.1L CBC/BMP Laboratory Tests 08/29/20 05:52 Microbiology Microbiology 08/27/20 Stool Occult Blood (KENYA) - Final, Complete 08/26/20 Blood Culture - Preliminary, Resulted No Growth after 72 hours. All specime... 08/26/20 Blood Culture - Preliminary, Resulted No Growth after 72 hours. All specime... JAYCE SOTO MD Aug 29, 2020 11:25
[2020-08-29] MEDS: PERCOCET 5MG/325MG TAB PO PRN (12:15)
--- NOTE | 2020-08-29 12:33 | IPN ---
DATE: 08/28/2020 SUBJECTIVE: Patient was seen and examined at the bedside. She was actually out of bed into the sofa today. She is diuresing very well with the current diuretic regimen. Renal function is stable despite aggressive diuresis. She reports her shortness of breath is improving. No other active complaints at this time. OBJECTIVE: VITAL SIGNS: Temperature 97.5 degrees Fahrenheit, blood pressure 104/71, pulse 101, respiratory rate 18, saturating 92% on room air. INTAKE AND OUTPUT: Urine output recorded as 3.7 liters yesterday and 3.6 liters so far today since overnight. Weight in the bed scale is not available. PHYSICAL EXAMINATION: GENERAL: Patient is weak and cachectic, lying in bed, in no apparent distress. HEAD AND NECK: Extraocular muscles intact. Pupils equally round and reactive to light. Mucous membranes are moist. Neck is supple. Moderately elevated JVD. CVS: S1, S2, irregular rate. 2+ edema of the bilateral lower extremities. She has edema of the thighs as well. RESPIRATORY: Mildly decreased breath sounds at the bases. ABDOMEN: Soft. Positive bowel sounds. GENITOURINARY: She has an indwelling Patton catheter. MUSCULOSKELETAL: No clubbing or cyanosis. She has decreased range of movement in the lower extremities. Patient is Dragan lift dependent. MAPPING SPECIALIST: Patient is awake and alert, able to communicate, but dependent on Dragan lift. LABORATORY REVIEW: CBC showed WBC 8.3, hemoglobin 10.6, platelets 568,000. BMP showed sodium 143, potassium 4.3, chloride 104, bicarb 36, BUN 19, creatinine 0.5. Calcium 7.1. CURRENT INPATIENT MEDICATIONS: Patient's medications were all reviewed by myself. Her Hydrocortisone dose was decreased yesterday. She is on Lasix 40 mg I.V. every 6 hours and she continues to be on potassium chloride 40 mEq p.o. twice a day. ASSESSMENT AND PLAN: 1. Acute on chronic decompensated diastolic congestive heart failure: Patient is responding very well to the diuretics. She is getting slightly alkalotic. I have decreased the Lasix dose to 40 mg I.V. every 8 hours. 2. Hypokalemia: It is very well controlled with current dose of potassium 40 mEq p.o. twice a day. 3. Adrenal insufficiency: Continue current dose of Hydrocortisone 15 mg in the morning and 10 mg in the evening. 4. Atrial fibrillation: Continue current dose of Amiodarone. Heart rate is controlled. The decision to start anticoagulation is as per cardiology. MTDD
[2020-08-29 14:00] VITALS: BP 117/58
[2020-08-29 14:08] LABS: BODY FLUID CULTURE Not indicated. (.); LEGIONELLA ANTIGEN URINE Negative (Negative); ORGANISM ID Not indicated. (.); SPECIMEN SOURCE Urine (.); URINE STREP PNEUMONIAE ANTIGEN Negative (Negative)
[2020-08-29] MEDS: rOPINIRole 1MG TAB PO SCH (21:39)
[2020-08-29] MEDS: diphenhydrAMINE 50MG CAP PO PRN (21:39)
[2020-08-29] MEDS: HYDROCORTISONE 10 MG TAB PO SCH (21:44)
[2020-08-29 22:00] VITALS: BP 100/52
[2020-08-30] MEDS: FUROSEMIDE 40MG/4ML VIAL (J1940) IV SCH ×2 (00:38→09:00)
[2020-08-30 06:00] VITALS: BP 101/50
[2020-08-30 06:38] LABS: HEMATOCRIT 37.1 % (36.0-47.0); HEMOGLOBIN 11.5 g/dl (12.0-15.5); MEAN CORPUSCULAR HEMOGLOBIN 30.2 pg (27.0-33.0); MEAN CORPUSCULAR VOLUME 97.4 fl (80.0-96.0); PLATELET COUNT, AUTOMATED 531 10^3/uL (150-450); RED BLOOD COUNT 3.81 10^6/uL (4.00-5.40); WHITE BLOOD COUNT 10.9 10^3/uL (4.0-10.0)
[2020-08-30 06:59] LABS: BLOOD UREA NITROGEN 15 MG/DL (7-18); CALCIUM LEVEL 7.5 MG/DL (8.8-10.2); CARBON DIOXIDE LEVEL 33 MEQ/L (21-32); CHLORIDE LEVEL 105 MEQ/L (98-107); CREATININE FOR GFR 0.36 MG/DL (0.55-1.30); GLOMERULAR FILTRATION RATE > 60.0 (>39); GLUCOSE, FASTING 51 MG/DL (70-100); SODIUM LEVEL 139 MEQ/L (136-145)
[2020-08-30 07:08] LABS: ATYPICAL LYMPH 2 % (0-5); LYMPHOCYTES 25 % (16-44); MONOCYTES 4 % (0-5); NEUTROPHILS 69 % (28-66)
[2020-08-30 07:09] LABS: PLATELET ESTIMATE NORMAL (NORMAL)
[2020-08-30] MEDS: LEVALBUTEROL 1.25 MG/0.5 ML CONCENTRATE NEB INH SCH ×4 (07:21→19:38)
[2020-08-30] MEDS: HumaLOG INSULIN (NovoLOG) PER UNIT SC SCH ×4 (07:30→21:00)
--- NOTE | 2020-08-30 08:29 | IPN ---
DATE: 08/29/2020 SUBJECTIVE: The patient was seen and examined at the bedside today morning. She continues to be on diuretics. She diuresed a lot with the Lasix dose yesterday. She made more than 5 liters of urine. Renal function is still stable. She reports her shortness of breath is getting better and her edema is also improving. OBJECTIVE: Vital signs: Temperature is 98 degrees Fahrenheit, blood pressure is 118/59, pulse of 72, respiratory rate of 18, saturating 90% on room air. Intake and output Urine output recorded as 5,050 mL yesterday, 600 mL so far today since overnight. Weight on the bed scale is not available. PHYSICAL EXAMINATION: GENERAL APPEARANCE: The patient is awake, alert, oriented x3, laying in bed. No apparent distress. HEAD AND NECK: Extraocular muscles intact. Pupils are equally round and reactive to light. Mucous membranes are moist. Neck is supple. Mildly elevated JVD. CARDIOVASCULAR: S1, S2, regular rate. EXTREMITIES: 2+ edema of the bilateral lower extremities. 2+ edema on the thighs as well and 1+ edema on the bilateral upper extremities. RESPIRATORY: Mildly decreased breath sounds at the bases, otherwise no active rales or rhonchi. ABDOMEN: Soft, positive bowel sounds. Mild abdominal wall edema was noted as well. POSTMASTER RELIEF: The patient moves bilateral upper extremities and follows commands. She is awake and alert but very hard of hearing. LAB REVIEW: CBC showed a WBC of 8.7, hemoglobin 10.8, platelets of 535. BMP showed sodium 144, potassium 4.4, chloride 104, bicarbonate 35, BUN is 16, creatinine is 0.4, calcium 7.1. CURRENT INPATIENT MEDICATIONS: The patients medications were all reviewed by myself. I have decreased the Lasix dose to 40 mg IV q. 8 hourly now. Insulin dose has been increased to insulin Levemir 12 units subcutaneously q. h.s. No other significant change in the medications today as compared with yesterday. ASSESSMENT AND PLAN: 1. [id number] decompensated diastolic congestive heart failure Volume status is improving. She is making a very good amount of urine. Actually her Lasix dose was decreased yesterday. Continue Lasix 40 mg IV q. 8. That would leave her with a negative fluid balance of 2.5 in 24 hours. 2. Adrenal insufficiency It is controlled with a lower dose of Hydrocortisone 15 mg in the morning and 10 mg in the evening. 3. Hypokalemia It is well controlled with Potassium Chloride 40 mEq p.o. twice a day despite the aggressive diuresis that the patient is getting. 4. Atrial fibrillation heart rate is controlled with Amiodarone and electrolytes are within the acceptable range. She has been restarted on Eliquis 5 mg p.o. twice a day. 5. Iron deficiency anemia - The patient continues to be on oral iron. Hemoglobin level is stable and improving now. MTDD
[2020-08-30] MEDS: NICOTINE 7 MG/24 HR TRANSDERMAL TOP SCH (09:01)
[2020-08-30] MEDS: ACETAMINOPHEN TAB 650MG DOSE (2X325MG) PO SCH (09:01)
[2020-08-30] MEDS: MAGNESIUM OXIDE 400 MG TAB (MAG-OX) PO SCH ×2 (09:01→21:44)
[2020-08-30] MEDS: busPIRone 5 MG TAB PO SCH ×2 (09:02→21:44)
[2020-08-30] MEDS: GABAPENTIN 100 MG CAP PO SCH ×3 (09:02→21:44)
[2020-08-30] MEDS: OMEPRAZOLE 20 MG CAP PO SCH (09:02)
[2020-08-30] MEDS: CYANOCOBALAMIN 500 MCG TAB PO SCH (09:02)
[2020-08-30] MEDS: FERROUS SULFATE 325MG TAB PO SCH (09:02)
[2020-08-30] MEDS: HYDROCORTISONE 5MG TABLET PO SCH (09:02)
[2020-08-30] MEDS: POTASSIUM CHLORIDE 10 MEQ SR TABLET PO SCH (09:02)
[2020-08-30] MEDS: APIXABAN 5 MG TAB (ELIQUIS) PO SCH ×2 (09:02→21:44)
[2020-08-30] MEDS: guaiFENesin ER 600 MG TAB PO SCH ×2 (09:03→21:44)
[2020-08-30] MEDS: FLUTICASONE PROP 0.05% NASAL SPRAY 16 GM (FLONASE) NARES SCH (09:03)
[2020-08-30] MEDS: TORSEMIDE 10 MG TABLET PO SCH (12:48)
[2020-08-30] MEDS: PERCOCET 5MG/325MG TAB PO PRN (13:49)
--- NOTE | 2020-08-30 13:52 | REP ---
INDICATION: Looking for changes in pleural effusion COMPARISON: 08/25/2020, 08/26/2020 TECHNIQUE: PA and lateral. FINDINGS: Diffuse chronic COPD and interstitial changes are appreciated. Pleuroparenchymal changes at the left lung base are again noted and superimposed pleural effusion as well as atelectasis cannot be excluded. No obvious pneumothorax. Skeletal structures demonstrate osteopenia, degenerative changes, multiple healed rib fractures and old proximal left humerus fracture. IMPRESSION: Moderate pleuroparenchymal changes at the left lung base suggests chronic changes, and superimposed pleural effusion or atelectasis cannot definitively be excluded. However, findings do appear somewhat improved as compared to 08/25/2020. <Electronically signed by Anastacio Ritchie > 08/30/20 [id number]
--- NOTE | 2020-08-30 13:56 | IPN ---
DATE: 08/30/2020 SUBJECTIVE: The patient was seen and examined at the bedside today morning. She was getting physical therapy and was standing with the help of the PT staff. Her edema is significantly better. She reports that her shortness of breath is improving. Her renal function is stable despite aggressive IV diuretics. Electrolytes are within the acceptable range. OBJECTIVE: VITAL SIGNS: Temperature is 98.7 degrees Fahrenheit, blood pressure 101/50, pulse is 80, respiratory rate of 16, saturating 95% on room air. Intake and Output Urine output recorded as 2.5 liters yesterday, 1.5 liters so far today since overnight. Weight on the bed scale is 55.2 kg. PHYSICAL EXAMINATION: GENERAL APPEARANCE: The patient is awake, alert, oriented x3, sitting up in the sofa, no apparent distress. HEAD AND NECK: Extraocular muscles intact. Pupils are equally round and reactive to light. Mucous membranes are moist. Neck is supple. There is no significant jugular venous distention. CARDIOVASCULAR: S1, S2, regular rate. EXTREMITIES: 1+ edema in the ankles only. RESPIRATORY: Chest is clear to auscultation bilaterally. No rales or rhonchi. ABDOMEN: Soft, positive bowel sounds, no organomegaly. MUSCULOSKELETAL: Edema in the ankles only. She otherwise does not have any clubbing or cyanosis. 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 Strength is 5/5 in bilateral upper extremities. LABORATORY REVIEW: CBC showed a WBC of 10.9, hemoglobin 11.5, platelets are 531. BMP: Sodium 139, potassium is 4, chloride 105, bicarbonate 33, BUN 13, creatinine is 0.3, calcium is 7.5. CURRENT INPATIENT MEDICATIONS: The patients medications were all reviewed by myself. She is getting: * Lasix 40 mg IV q. 8 hourly. I am going to stop the Lasix injections. * I have started her on Torsemide 30 mg p.o. daily. * Her potassium dose has also been decreased to 40 mg p.o. once a day. No other significant change in the medications today as compared with yesterday. ASSESSMENT AND PLAN: 1. Fudyy-cz-pezeach decompensated diastolic congestive heart failure volume status is starting to look better. If she is well optimized, no IV diuretics are being stopped and ordered Torsemide has been started as mentioned above. 2. Adrenal insufficiency - continue current dose of Hydrocortisone 50 mg in the morning and 10 in the evening. 3. Hypokalemia it is well controlled with current dose of Potassium Chloride. However, I have decreased her Potassium Chloride dose to 40 mEq p.o. daily because her Lasix dose is being decreased. 4. Atrial fibrillation heart rate is controlled with Amiodarone. She is anticoagulated with Eliquis. MTDD
[2020-08-30 14:00] VITALS: BP 116/58
[2020-08-30] MEDS ORDERED: traMADol 50 MG TAB PO PRN (14:15)
[2020-08-30] MEDS: ACETAMINOPHEN 500 MG TAB PO SCH ×2 (17:11→21:45)
[2020-08-30] MEDS: LIDOCAINE 5% (LIDODERM) PATCH TD SCH (17:12)
--- NOTE | 2020-08-30 20:50 | IPNPDOC ---
Subjective Date Seen The patient was seen on 08/30/20. Subjective Chief Complaint/HPI Mrs. Solano is a 75 year old female here with CHF exacerbation. She still has chest heaviness and dyspnea, but denies fever, abdominal pain, or dysuria. Repeat CXR today demonstrates improvement in pleural effusion Constitutional: Denies: Fever Pulmonary: Reports: Dyspnea Cardiovascular: Reports: Chest Pain (chest tightness) Gastrointestinal: Denies: Abdominal Pain Genitourinary: Denies: Dysuria Objective Physical Examination General Exam: Positive: Alert, Cooperative Eye Exam: Positive: PERRLA ENT Exam: Positive: Atraumatic Neck Exam: Positive: Supple, JVD Chest Exam: Positive: Diminished Telemetry: Positive: Atrial fibrillation Abdomen Exam: Positive: Normal bowel sounds Extremity Exam: Positive: Clubbing, Edema; Negative: Cyanosis Skin Exam: Positive: Nl turgor and temperature Neuro Exam: Positive: Normal Tone, Cranial Nerves 3-12 NL Psych Exam: Positive: Mental status NL Assessment /Plan Assessment Mrs. Solano is a 75 year old female here with acute decompensated diastolic dysfunction. Last echocardiogram was 07/2020 which demonstrated EF of 65 to 70% and grade 1 diastolic dysfunction. Nephrology was consulted for diuresis. Today, patient has been placed on scheduled Torsemide. Plan/VTE VTE Prophylaxis Ordered?: Yes Plan 1. Acute decompensated diastolic CHF -Echocardiogram 07/2020 demonstrated EF of 65% to 70% with grade 1 diastolic dysfunction -Nephrology following for diuresis, recommendations appreciated -Today, started scheduled torsemide 30mg PO daily 2. Hypokalemia -Nephrology following, recommendations appreciated -Patient is on KCL 40mEq daily 3. Atrial fibrillation -Cardiology was consulted. Recommendations appreciated -Continues on apixaban and amiodarone 4. COPD -stable -Continue on inhalers 5. DM type 2 -Continue with sliding scale insulin and levemir 6. Chronic pain -Family is concerned for opioid addition -Discontinued Percocet -Started lidocaine patch and scheduled acetaminophen with PRN tramadol 7. Insomnia -Trazodone -PRN Benadryl 8. Adrenal insufficiency -On Hydrocortisone 9. RLS -On ropinirole 10. Thyroid nodule -Will need to follow up outpatient for thyroid nodule 11. DVT ppx - On apixaban VS, I&O, 24H, Fishbone Vital Signs/I&O Vital Signs Date Time Temp Pulse Resp B/P (MAP) Pulse Ox O2 Delivery O2 Flow Rate FiO2 08/30/20 14:00 98.8 90 16 116/58 (77) 94 Room Air 08/27/20 20:20 1.0 I&O- Last 24 Hours up to 6 AM 08/30/20 06:00 Intake Total 1040 ml Output Total 3450 ml Balance -2410 ml Laboratory Data 24H LABS Laboratory Tests 2 08/30/20 06:15: Immature Granulocyte % (Auto) , Neutrophils (%) (Auto) , Reticulocyte # (auto) 1 65.4H, Nucleated Red Blood Cells % (auto) 0.0, Neutrophils 69H, Lymphocytes (Manual) 25, Monocytes (Manual) 4, Atypical Lymphocytes 2, Red Blood Cell Morphology NORMAL, Platelet Estimate NORMAL, Percent Reticulocyte Count 4.3H, Reticulocyte Hemoglobin Equivalent 37.6H, Anion Gap 1L, Glomerular Filtration Rate > 60.0, Calcium Level 7.5L 08/30/20 10:56: Bedside Glucose (Misc Panel) 181H 08/30/20 11:35: Bedside Glucose (Misc Panel) 134H 08/30/20 16:53: Bedside Glucose (Misc Panel) 244H CBC/BMP Laboratory Tests 08/30/20 06:15 Microbiology Microbiology 08/27/20 Stool Occult Blood (KENYA) - Final, Complete 08/26/20 Blood Culture - Preliminary, Resulted No Growth after 72 hours. All specime... 08/26/20 Blood Culture - Preliminary, Resulted No Growth after 72 hours. All specime... ALLEGRA WILL DO Aug 30, 2020 20:50
[2020-08-30] MEDS: diphenhydrAMINE 50MG CAP PO PRN (21:44)
[2020-08-30] MEDS: HYDROCORTISONE 10 MG TAB PO SCH (21:44)
[2020-08-30] MEDS: rOPINIRole 1MG TAB PO SCH (21:44)
[2020-08-30] MEDS: LEVEMIR (INSULIN DETEMIR) 1 UNITS/0.01ML SC SCH (21:45)
[2020-08-30] MEDS: **NOTE PATIENT COMMENT** MISC XX SCH (21:45)
[2020-08-30 22:00] VITALS: BP 108/61
[2020-08-31] MEDS ORDERED: KETOROLAC 30 MG/ML 1ML VIAL IV ONE (05:30)
[2020-08-31 06:16] LABS: HEMATOCRIT 36.3 % (36.0-47.0); HEMOGLOBIN 11.1 g/dl (12.0-15.5); MEAN CORPUSCULAR HEMOGLOBIN 30.2 pg (27.0-33.0); MEAN CORPUSCULAR HGB CONC 30.6 g/dl (32.0-36.5); MEAN CORPUSCULAR VOLUME 98.6 fl (80.0-96.0); PLATELET COUNT, AUTOMATED 504 10^3/uL (150-450); RED BLOOD COUNT 3.68 10^6/uL (4.00-5.40); WHITE BLOOD COUNT 8.7 10^3/uL (4.0-10.0)
[2020-08-31 06:33] LABS: BLOOD UREA NITROGEN 21 MG/DL (7-18); CALCIUM LEVEL 7.7 MG/DL (8.8-10.2); CARBON DIOXIDE LEVEL 32 MEQ/L (21-32); CHLORIDE LEVEL 105 MEQ/L (98-107); CREATININE FOR GFR 0.54 MG/DL (0.55-1.30); GLOMERULAR FILTRATION RATE > 60.0 (>39); GLUCOSE, FASTING 112 MG/DL (70-100); POTASSIUM SERUM 4.4 MEQ/L (3.5-5.1); SODIUM LEVEL 141 MEQ/L (136-145)
[2020-08-31] MEDS: LEVALBUTEROL 1.25 MG/0.5 ML CONCENTRATE NEB INH SCH ×4 (07:35→19:15)
[2020-08-31 07:48] LABS: ATYPICAL LYMPH 1 % (0-5); LYMPHOCYTES 29 % (16-44); METAMYELOCYTES 1 % (0-0); MONOCYTES 13 % (0-5); NEUTROPHILS 55 % (28-66)
[2020-08-31 07:59] LABS: PLATELET ESTIMATE INCREASED (NORMAL)
[2020-08-31] MEDS: HumaLOG INSULIN (NovoLOG) PER UNIT SC SCH ×4 (08:10→21:00)
[2020-08-31] MEDS: POTASSIUM CHLORIDE 10 MEQ SR TABLET PO SCH (08:11)
[2020-08-31] MEDS: FERROUS SULFATE 325MG TAB PO SCH (08:12)
[2020-08-31] MEDS: ACETAMINOPHEN 500 MG TAB PO SCH ×3 (08:12→20:57)
[2020-08-31] MEDS: OMEPRAZOLE 20 MG CAP PO SCH (08:12)
[2020-08-31] MEDS: CYANOCOBALAMIN 500 MCG TAB PO SCH (08:12)
[2020-08-31] MEDS: guaiFENesin ER 600 MG TAB PO SCH ×2 (08:12→20:55)
[2020-08-31] MEDS: TORSEMIDE 10 MG TABLET PO SCH (08:13)
[2020-08-31] MEDS: GABAPENTIN 100 MG CAP PO SCH ×3 (08:13→20:55)
[2020-08-31] MEDS: AMIODARONE 200 MG TAB (PACERONE) PO SCH (08:13)
[2020-08-31] MEDS: busPIRone 5 MG TAB PO SCH ×2 (08:13→20:57)
[2020-08-31] MEDS: APIXABAN 5 MG TAB (ELIQUIS) PO SCH ×2 (08:13→20:55)
[2020-08-31] MEDS: HYDROCORTISONE 5MG TABLET PO SCH (08:13)
[2020-08-31] MEDS: NICOTINE 7 MG/24 HR TRANSDERMAL TOP SCH (08:14)
[2020-08-31] MEDS: LIDOCAINE 5% (LIDODERM) PATCH TD SCH (08:14)
[2020-08-31] MEDS: FLUTICASONE PROP 0.05% NASAL SPRAY 16 GM (FLONASE) NARES SCH (08:14)
[2020-08-31] MEDS: MAGNESIUM OXIDE 400 MG TAB (MAG-OX) PO SCH ×2 (08:14→20:57)
[2020-08-31] MEDS: PERCOCET 5MG/325MG TAB PO PRN (12:10)
[2020-08-31] MEDS: rOPINIRole 1MG TAB PO SCH (20:56)
[2020-08-31] MEDS: LEVEMIR (INSULIN DETEMIR) 1 UNITS/0.01ML SC SCH (21:14)
--- NOTE | 2020-08-31 21:16 | IPNPDOC ---
Subjective Date Seen The patient was seen on 08/31/20. Subjective Chief Complaint/HPI Mrs. Solano is a 75 year old female here with CHF exacerbation. Changed her pain regimen yesterday to attempt to avoid Percocet, but did not do well. Spoke with her about Percocet. She is will to limit to once a day and one in the evening if needed. Denies fever, abdominal pain, or dysuria. Objective Physical Examination General Exam: Positive: Alert, Cooperative Eye Exam: Positive: PERRLA ENT Exam: Positive: Atraumatic Neck Exam: Positive: Supple, JVD Chest Exam: Positive: Diminished Telemetry: Positive: Atrial fibrillation Abdomen Exam: Positive: Normal bowel sounds Extremity Exam: Positive: Clubbing, Edema; Negative: Cyanosis Skin Exam: Positive: Nl turgor and temperature Neuro Exam: Positive: Normal Tone, Cranial Nerves 3-12 NL Psych Exam: Positive: Mental status NL Assessment /Plan Assessment Mrs. Solano is a 75 year old female here with acute decompensated diastolic dysfunction. Last echocardiogram was 07/2020 which demonstrated EF of 65 to 70% and grade 1 diastolic dysfunction. Nephrology was consulted for diuresis. Spoke with Nephrology today. Plan on scheduled Torsemide and follow up with Nephrology after discharge. Possible discharge tomorrow. Plan/VTE VTE Prophylaxis Ordered?: Yes Plan 1. Acute decompensated diastolic CHF -Echocardiogram 07/2020 demonstrated EF of 65% to 70% with grade 1 diastolic dysfunction -Nephrology following for diuresis, recommendations appreciated -On torsemide 30mg PO daily -Follow with nephrology after discharge 2. Hypokalemia -Nephrology following, recommendations appreciated -Patient is on KCL 40mEq daily 3. Atrial fibrillation -Cardiology was consulted. Recommendations appreciated -Continues on apixaban and amiodarone 4. COPD -stable -Continue on inhalers 5. DM type 2 -Continue with sliding scale insulin and levemir 6. Chronic pain -Restarted Percocet -Continuing lidocaine patch and scheduled acetaminophen -Discontinued PRN tramadol 7. Insomnia -Trazodone -PRN Benadryl 8. Adrenal insufficiency -On Hydrocortisone 9. RLS -On ropinirole 10. Thyroid nodule -Will need to follow up outpatient for thyroid nodule 11. DVT ppx - On apixaban Dispo: Possible discharge tomorrow VS, I&O, 24H, Fishbone Vital Signs/I&O Vital Signs Date Time Temp Pulse Resp B/P (MAP) Pulse Ox O2 Delivery O2 Flow Rate FiO2 08/31/20 12:42 17 08/31/20 12:10 Room Air 08/30/20 22:00 97.6 92 108/61 (77) 100 08/27/20 20:20 1.0 I&O- Last 24 Hours up to 6 AM 08/31/20 06:00 Intake Total 1030 ml Output Total 2200 ml Balance -1170 ml Laboratory Data 24H LABS Laboratory Tests 2 08/31/20 06:00: Immature Granulocyte % (Auto) , Neutrophils (%) (Auto) , Reticulocyte # (auto) 158.6H, Nucleated Red Blood Cells % (auto) 0.0, Neutrophils 55, Band Neutrophils 1, Lymphocytes (Manual) 29, Monocytes (Manual) 13H, Metamyelocytes 1H, Atypical Lymphocytes 1, Hypochromasia , Macrocytosis 1+, Platelet Estimate INCREASED, Percent Reticulocyte Count 4.3H, Reticulocyte Hemoglobin Equivalent 38.4H, Anion Gap 4L, Glomerular Filtration Rate > 60.0, Calcium Level 7.7L 08/31/20 11:47: Bedside Glucose (Misc Panel) 164H 08/31/20 16:51: Bedside Glucose (Misc Panel) 273H 08/31/20 20:01: Coronavirus (COVID-19)(PCR) NEGATIVE 08/31/20 20:44: Bedside Glucose (Misc Panel) 125H CBC/BMP Laboratory Tests 08/31/20 06:00 Microbiology Microbiology 08/27/20 Stool Occult Blood (KENYA) - Final, Complete 08/26/20 Blood Culture - Final, Complete NO GROWTH AFTER 5 DAYS 08/26/20 Blood Culture - Final, Complete NO GROWTH AFTER 5 DAYS ALLEGRA WILL DO Aug 31, 2020 21:16
[2020-08-31] MEDS: HYDROCORTISONE 10 MG TAB PO SCH (21:18)
[2020-08-31] MEDS: **NOTE PATIENT COMMENT** MISC XX SCH (21:18)
[2020-08-31 22:00] VITALS: BP 112/58
[2020-08-31] MEDS: diphenhydrAMINE 50MG CAP PO PRN (22:36)
[2020-09-01 06:00] VITALS: BP 114/77
[2020-09-01 06:31] LABS: HEMATOCRIT 36.9 % (36.0-47.0); HEMOGLOBIN 11.2 g/dl (12.0-15.5); MEAN CORPUSCULAR HEMOGLOBIN 30.1 pg (27.0-33.0); MEAN CORPUSCULAR HGB CONC 30.4 g/dl (32.0-36.5); MEAN CORPUSCULAR VOLUME 99.2 fl (80.0-96.0); PLATELET COUNT, AUTOMATED 495 10^3/uL (150-450); RED BLOOD COUNT 3.72 10^6/uL (4.00-5.40); WHITE BLOOD COUNT 8.3 10^3/uL (4.0-10.0)
[2020-09-01] MEDS: PERCOCET 5MG/325MG TAB PO PRN (06:53)
[2020-09-01 07:00] LABS: BLOOD UREA NITROGEN 21 MG/DL (7-18); CALCIUM LEVEL 8.1 MG/DL (8.8-10.2); CARBON DIOXIDE LEVEL 30 MEQ/L (21-32); CHLORIDE LEVEL 107 MEQ/L (98-107); CREATININE FOR GFR 0.57 MG/DL (0.55-1.30); GLOMERULAR FILTRATION RATE > 60.0 (>39); GLUCOSE, FASTING 166 MG/DL (70-100); POTASSIUM SERUM 4.1 MEQ/L (3.5-5.1); SODIUM LEVEL 141 MEQ/L (136-145)
[2020-09-01] MEDS: LEVALBUTEROL 1.25 MG/0.5 ML CONCENTRATE NEB INH SCH ×2 (07:03→11:09)
[2020-09-01 07:04] LABS: ATYPICAL LYMPH 3 % (0-5); BASOPHILS 1 % (0-1); LYMPHOCYTES 23 % (16-44); METAMYELOCYTES 2 % (0-0); MONOCYTES 6 % (0-5); MYELOCYTES 1 % (0-0); NEUTROPHILS 63 % (28-66)
[2020-09-01 07:05] LABS: ANISOCYTOSIS 1+; PLATELET ESTIMATE INCREASED (NORMAL)
--- NOTE | 2020-09-01 08:05 | IPN ---
DATE: 08/31/2020 SUBJECTIVE: The patient was seen and examined at the bedside. She was actually sitting in the recliner sofa today. She still has an indwelling Patton catheter. Diuretics were changed to oral Torsemide. Adrenal function is stable. Edema has all improved now. OBJECTIVE: VITAL SIGNS: Temperature is 97.6 degrees Fahrenheit, blood pressure 108/61, pulse is 92, respiratory rate of 18, saturating 100% on room air. Intake and Output urine output recorded is 3.4 liters yesterday, 1.7 liters so far today since overnight. Weight on the bed scale was 55.2 kg yesterday. No weight is available today. PHYSICAL EXAMINATION: GENERAL APPEARANCE: The patient is awake, alert, oriented x3, in no apparent distress. HEAD AND NECK: The extraocular muscles are intact. Pupils are equally round and reactive to light. Mucous membranes are moist. Neck is supple. There is no jugular venous distention. CARDIOVASCULAR: Regular rate. EXTREMITIES: Very trace edema of the ankles. RESPIRATORY: Chest is clear to auscultation bilaterally. Bilaterally currently no rales or rhonchi. ABDOMEN: Soft, positive bowel sounds, nontender, no organomegaly. GENITOURINARY: She has an indwelling Patton catheter. MUSCULOSKELETAL: No clubbing or cyanosis. Significant improvement in the edema of the bilateral lower extremities. 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 Strength is 5/5 in all extremities. However the patient is usually bedridden and she has difficulty with walking and standing. LAB REVIEW: CBC showed a WBC of 8.7, hemoglobin 11.1, platelets are 504. BMP showed sodium 141, potassium 4.4, chloride 105, bicarbonate 32, BUN 21, creatinine is 0.5, calcium 7.7. CURRENT INPATIENT MEDICATIONS: The patients medications were all reviewed by myself. She is currently on oral Torsemide 30 mg p.o. daily. Potassium was also decreased to 40 mEq p.o. daily. No other significant change in the medications today as compared with yesterday. ASSESSMENT AND PLAN: 1. Kfefs-tq-uxoepix decompensated diastolic congestive heart failure volume status is significantly better now. She is currently on Torsemide. Further change in the oral diuretics will be done depending upon her response to the current treatment. 2. Hypokalemia potassium level is controlled with once a day potassium chloride 40 mEq only. 3. Adrenal insufficiency - continue current dose of Hydrocortisone 15 mg in the morning and 10 mg in the evening. 4. Atrial fibrillation - heart rate is controlled with Amiodarone. 5. Chronic urinary retention - The patient has a chronic indwelling Patton catheter at this time. 6. Iron deficiency anemia - The patient is status post IV iron and currently she is on oral iron. Hemoglobin level is improving. 7. Disposition hopefully the patient should be able to be discharged from the hospital over the next 24-48 hours. MTDD
[2020-09-01] MEDS: HumaLOG INSULIN (NovoLOG) PER UNIT SC SCH ×2 (09:08→12:00)
[2020-09-01] MEDS: NICOTINE 7 MG/24 HR TRANSDERMAL TOP SCH (09:08)
[2020-09-01] MEDS: POTASSIUM CHLORIDE 10 MEQ SR TABLET PO SCH (09:09)
[2020-09-01] MEDS: MAGNESIUM OXIDE 400 MG TAB (MAG-OX) PO SCH (09:09)
[2020-09-01] MEDS: OMEPRAZOLE 20 MG CAP PO SCH (09:09)
[2020-09-01] MEDS: GABAPENTIN 100 MG CAP PO SCH (09:10)
[2020-09-01] MEDS: busPIRone 5 MG TAB PO SCH (09:10)
[2020-09-01] MEDS: HYDROCORTISONE 5MG TABLET PO SCH (09:10)
[2020-09-01] MEDS: TORSEMIDE 10 MG TABLET PO SCH (09:10)
[2020-09-01] MEDS: FERROUS SULFATE 325MG TAB PO SCH (09:10)
[2020-09-01] MEDS: APIXABAN 5 MG TAB (ELIQUIS) PO SCH (09:11)
[2020-09-01] MEDS: CYANOCOBALAMIN 500 MCG TAB PO SCH (09:11)
[2020-09-01] MEDS: ACETAMINOPHEN 500 MG TAB PO SCH (09:11)
[2020-09-01] MEDS: guaiFENesin ER 600 MG TAB PO SCH (09:11)
[2020-09-01] MEDS: LIDOCAINE 5% (LIDODERM) PATCH TD SCH (09:12)
[2020-09-01] MEDS: FLUTICASONE PROP 0.05% NASAL SPRAY 16 GM (FLONASE) NARES SCH (09:12)
[2020-09-01] MEDS ORDERED: OMEP-218 PO (11:01)
[2020-09-01] MEDS ORDERED: LEVA12INH INH (11:01)
[2020-09-01] MEDS ORDERED: CORT5TAB2 PO (11:01)
[2020-09-01] MEDS ORDERED: **Note Patient Comment XX (11:01)
[2020-09-01] MEDS ORDERED: DIPH50CA PO (11:01)
[2020-09-01] MEDS ORDERED: KLOR10TA76 PO (11:01)
[2020-09-01] MEDS ORDERED: HYDR-4468 PO (11:01)
[2020-09-01] MEDS ORDERED: PERCOCET PO (11:01)
[2020-09-01] MEDS ORDERED: TRAZ-252 PO (11:01)
[2020-09-01] MEDS ORDERED: TORS10TA3 PO ×2 (11:01→11:40)
[2020-09-01] MEDS ORDERED: LIDO5TD TD (11:01)
[2020-09-01] MEDS ORDERED: ACET-683 PO (11:01)
--- NOTE | 2020-09-01 23:16 | DS.PDOC ---
Discharge Summary General Date of Admission Aug 25, 2020 at 01:35 Date of Discharge Sep 01, 2020 Attending Physician: ALLEGRA WILL DO Specialist/Consultants [facility], Dr. Deutsch Cardiology, Dr. Zepeda Discharge Summary PROCEDURES PERFORMED DURING STAY: Blood transfusion ADMITTING DIAGNOSES: 1. Chest pain 2. CHF exacerbation 3. Diabetes mellitus 4. COPD 5. Tobacco abuse 6. Adrenal insufficiency 7. Atrial fibrillation 8. Anemia DISCHARGE DIAGNOSES: 1. Acute decompensated diastolic CHF 2. Hypokalemia 3. Atrial fibrillation 4. COPD 5. DM type 2 6. Chronic pain 7. Insomnia 8. Adrenal insufficiency 9. RLS 10. Thyroid nodule COMPLICATIONS/CHIEF COMPLAINT: Chest Pain. HISTORY OF PRESENT ILLNESS: Mrs. Solano is a 75 year old female with COPD, DM, Afib, and hypertension presented to the hospital with midsternal chest pain and shortness of breath. Patient stated that she has been having symptoms for past 24 hours. She received nitro in [facility], systolic blood pressure dropped to 70 and chest pain got worse. In ER patient was found to have BNP 1600, negative troponin and EKG was negative for acute ischemic changes, hemoglobin 7.8. HOSPITAL COURSE: During her hospitalization, she had 4 troponins which were essentially negative. Her hemoglobin was initially low at 7.8. She was given one unit packed red blood cells on 08/24/2020 which she appropriately responded to. She is also given an additional unit of packed red blood cells 08/27/2020. There is also concern of pneumonia on 08/26/2020. Pneumonia was ruled out with a low Pro-calcitonin and antibiotics was discontinued. During a CT of the chest, she was found to have thyroid nodule. Patient will need a FNA by ENT outpatient. Otherwise, nephrology helped with diuresis. During her hospitalization she diuresis and then negative of 12 L. Today when I saw her, she was feeling better. She felt ready to have back to [facility] and was subsequently discharged back to [facility] DISCHARGE MEDICATIONS: Please see below. ALLERGIES: Please see below. PHYSICAL EXAMINATION ON DISCHARGE: VITAL SIGNS: Please see below. GENERAL: Comfortable, in no apparent distress. HEENT: Head normocephalic/atraumatic, EOMI, sclera clear. NECK: Supple RESPIRATORY: Diminished breath sounds CARDIOVASCULAR: Irregular rhythm but controlled ABDOMEN: Soft, nontender, Normal bowel sounds. MUSCLE SKELETAL: Bilateral pitting edema NEUROLOGICAL: CN 312 grossly intact, no focal deficits noted. PSYCHOLOGICAL: Normal mood and affect LABORATORY DATA: Please see below. IMAGING: CT chest 1. Scattered bronchial wall thickening, small bronchial mucous plugging and minimal pulmonary micronodularity. The findings are suggestive of bronchitis and minimal bronchiolitis. 2. There is moderate left lower lobe atelectasis adjacent to the pleural effusion. Infectious pneumonia amongst this area of volume loss is not excludable. 3. Small left pleural effusion. Very small right pleural effusion. 4. Mild cardiomegaly. 5. Nonspecific left breast 1.7 cm mass. Correlation with recent mammography is recommended. 6. Redemonstration of midline anterior chest wall cystic-appearing mass. This is nonspecific but may represent a sebaceous cyst. This should be amenable to physical examination. Ultrasound thyroid Bilateral thyroid nodules with the largest nodule in the lower pole of the right lobe measuring 1.2 x 1.1 x 0.9 cm and a dominant spongiform lesion in the upper pole of the left lobe measuring 1.1 x 0.9 x 0.8 cm. PROGNOSIS: Stable ACTIVITY: As tolerated DIET: 2 g sodium with 1500 mL fluid restriction DISCHARGE PLAN: Return to [facility] DISPOSITION: [facility]. DISCHARGE INSTRUCTIONS: 1. Follow with her PCP within 5 days 2. Follow with nephrology in 2 weeks 3. Follow-up with cardiology within a week 4. Follow with ENT for FNA within a week. DISCHARGE CONDITION: Stable. Total time spent on discharge planning, discharge summary, and med reconciliation: 55 minutes Vital Signs/I&Os Vital Signs Date Time Temp Pulse Resp B/P (MAP) Pulse Ox O2 Delivery O2 Flow Rate FiO2 09/01/20 09:18 18 Room Air 09/01/20 06:53 95 09/01/20 06:00 97.3 88 114/77 (89) 08/27/20 20:20 1.0 I&O- Last 24 Hours up to 6 AM 09/01/20 06:00 Intake Total 1000 ml Output Total 2250 ml Balance -1250 ml Laboratory Data Labs 24H Laboratory Tests 2 09/01/20 05:55: Immature Granulocyte % (Auto) , Neutrophils (%) (Auto) , Reticulocyte # (auto) 188.2H, Nucleated Red Blood Cells % (auto) 0.0, Neutrophils 63, Band Neutrophils 1, Lymphocytes (Manual) 23, Monocytes (Manual) 6H, Basophils (Manual) 1, Metamyelocytes 2H, Myelocytes 1H, Atypical Lymphocytes 3, Anisocytosis 1+, Macrocytosis 1+, Platelet Estimate INCREASED, Percent Reticulocyte Count 5.1H, Reticulocyte Hemoglobin Equivalent 39.1H, Anion Gap 4L, Glomerular Filtration Rate > 60.0, Calcium Level 8.1L 09/01/20 11:29: Bedside Glucose (Misc Panel) 71L CBC/BMP Laboratory Tests 09/01/20 05:55 FSBS Laboratory Tests Test 09/01/20 11:29 Range/Units Bedside Glucose (Misc Panel) 71 83-110 MG/DL Microbiology Microbiology 08/27/20 Stool Occult Blood (KENYA) - Final, Complete 08/26/20 Blood Culture - Final, Complete NO GROWTH AFTER 5 DAYS 08/26/20 Blood Culture - Final, Complete NO GROWTH AFTER 5 DAYS Discharge Medications Scheduled Acetaminophen (Acetaminophen) 500 Mg Tablet, 1,000 MG PO TID Alendronate Sodium (Alendronate Sodium) 70 Mg Tablet, 70 MG PO QWEEK, (Reported) SATURDAY Amiodarone HCl (Amiodarone HCl) 200 Mg Tablet, 200 MG PO 3XW, (Reported) SATURDAY, SATURDAY AND SATURDAY Apixaban (Eliquis) 5 Mg Tablet, 5 MG PO BID, (Reported) Aspirin (Aspirin) 81 Mg Tab.chew, 81 MG PO DAILY, (Reported) Buspirone HCl (Buspirone HCl) 5 Mg Tablet, 5 MG PO BID, (Reported) Calcium Carbonate/Vitamin D3 (Calcium 600-Vit D3 400 Tablet) 1 Each Tablet, 1 TAB PO BID, (Reported) Cholecalciferol (Vitamin D3) (Vitamin D3) 50 Mcg Capsule, 2,000 UNITS PO DAILY, (Reported) Cyanocobalamin (Vitamin B-12) (B-12) 500 Mcg Tablet, 500 MCG PO DAILY, (Reported) Diltiazem HCl (Diltiazem 24Hr ER) 240 Mg Cap.er.24h, 240 MG PO DAILY, (Reported) Ferrous Sulfate (Ferrous Sulfate) 325 Mg Tablet, 325 MG PO DAILY, (Reported) Fluticasone Propionate (Fluticasone Propionate) 16 Gm [place].susp, 2 SPRAYS NARES DAILY, (Reported) Fluticasone/Umeclidin/Vilanter (Trelegy Ellipta 100-62.5-25) 1 Each Blst.w.dev, 1 PUFF INH DAILY, (Reported) Gabapentin (Gabapentin) 100 Mg Capsule, 100 MG PO TID, (Reported) Hydrocortisone (Cortef) 5 Mg Tablet, 15 MG PO QAM Hydrocortisone (Hydrocortisone) 10 Mg Tablet, 10 MG PO QPM Insulin Glargine,Hum.rec.anlog (Basaglar Kwikpen U-100) 100 Unit/1 Ml Insuln.pen, 12 UNIT SC DAILY, (Reported) Lidocaine (Lidocaine) 5% Adh..patch, 2 PATCH TD DAILY right shoulder and back Magnesium Oxide (Magnesium Oxide) 400 Mg Tablet, 400 MG PO BID, (Reported) Metformin HCl (Metformin HCl) 1,000 Mg Tablet, 1,000 MG PO BID, (Reported) Nicotine (Nicotine Patch) 7 Mg Patch.td24, 1 PATCH TOP DAILY, (Reported) START DATE 08/25/20 Omeprazole (Omeprazole) 20 Mg Capsule.dr, 40 MG PO DAILY Potassium Chloride (Klor-Con M10) 10 Meq Tab.er.prt, 40 MEQ PO DAILY Ropinirole HCl (Ropinirole HCl) 1 Mg Tablet, 1 MG PO QHS, (Reported) Tamsulosin HCl (Flomax) 0.4 Mg Capsule, 0.8 MG PO DAILY, (Reported) FOR 14 DAYS, FINISH DATE 09/02/20 Torsemide (Torsemide) 10 Mg Tablet, 20 MG PO DAILY [Note Patient Comment] MISC, 0 XX DAILY@21 Scheduled PRN Bisacodyl (Bisacodyl) 10 Mg Supp.rect, 10 MG MS DAILY PRN for CONSTIPATION, (Reported) Diphenhydramine HCl (Diphenhydramine HCl) 50 Mg Capsule, 50 MG PO QHSP PRN for INSOMNIA Levalbuterol Hydrochloride (Xopenex Concentrate) 1.25 Mg/0.5 Ml Vial.neb, 0.63 MG INH Q2HP PRN for SOB/WHEEZING Magnesium Hydroxide (Milk of Magnesia) 400 Mg/5 Ml Oral.susp, 2,400 MG PO DAILY PRN for CONSTIPATION, (Reported) Nitroglycerin (Nitrostat) 0.4 Mg Tab.subl, 0.4 MG SL Q5MP PRN for CHEST PAIN, (Reported) Oxycodone/Acetaminophen (Oxycodone-Acetaminophen 5-325) 1 Each Tablet, 1 TAB PO BIDP PRN for MODERATE PAIN (PS 5-7) Sodium Phosphate,[place]-Dibasic (Enema) 133 Ml Enema, 1 CHRISTI MS DAILY PRN for CONSTIPATION, (Reported) Trazodone HCl (Trazodone HCl) 50 Mg Tablet, 25 MG PO QHSP PRN for INSOMNIA Allergies Coded Allergies: propoxyphene (Verified Allergy, Intermediate, hives, 08/24/20) ALLEGRA WILL DO Sep 01, 2020 23:16
[2020-09-02] MEDS ORDERED: TORSEMIDE 10 MG TABLET PO SCH (09:00)
--- NOTE | 2020-09-02 12:40 | IPN ---
DATE: 08/28/2020 SUBJECTIVE: The patient was seen and examined in the room today. She was laying in the bed. She is tolerating the current dose of diuretics. She actually diuresed very well with Torsemide 30 mg. Renal function is stable. Potassium level is also within the acceptable range. Her edema has all improved now. OBJECTIVE: VITAL SIGNS: Temperature is 97.3 degrees Fahrenheit, blood pressure 114/77, pulse is 88, respiratory rate of 18, saturating 95% on room air. Intake and Output urine output recorded as 2,050 mL yesterday, 300 mL so far today since overnight. Weight on the bed scale is 53.3 kg. PHYSICAL EXAMINATION: GENERAL APPEARANCE: The patient is awake, alert, oriented x3, laying in bed in no apparent distress. HEAD AND NECK: Extraocular muscles intact. Pupils are equally round and reactive to light. Mucous membranes are moist. Neck is supple. There is no jugular venous distention. CARDIOVASCULAR: S1, S2, regular rate. EXTREMITIES: No edema of the bilateral lower extremities. RESPIRATORY: Chest is clear to auscultation bilaterally. Bilaterally no rales or rhonchi. ABDOMEN: Soft, positive bowel sounds, nontender, no organomegaly. GENITOURINARY: She has an indwelling Patton catheter. MUSCULOSKELETAL: No clubbing, no cyanosis. No edema of the extremities. C&S: No focal deficits. 5/5 strength in bilateral upper extremities. The patient has difficulty walking. LAB REVIEW: CBC showed a WBC of 8.3, hemoglobin 11.2, platelets of 495. BMP sodium 141, potassium 4.1, chloride 107, bicarbonate 30, BUN 21, creatinine 0.5, glucose 166, calcium is 8.1. CURRENT INPATIENT MEDICATIONS: The patients medications were all reviewed by myself. She is currently on Torsemide 30 mg daily and Potassium Chloride 40 mEq p.o. daily. ASSESSMENT AND PLAN: * Bbcid-lz-ndraonu diastolic congestive heart failure - The patients volume status is optimized. I further decreased the diuretic dose of her Torsemide to 20 mg daily only on discharge. * Chronic hypokalemia it is controlled with only 40 mEq of potassium daily. * Adrenal insufficiency she can be discharged on Hydrocortisone 15 mg in the morning and 10 mg in the evening. * Atrial fibrillation - heart rate is controlled with Amiodarone. * Chronic urinary retention - continue indwelling Patton catheter with once a month Patton exchange. * Disposition - The patient is optimized to be discharged from a nephrology. She would need to follow up with Nephrology within 2 weeks after discharge from the hospital. GWEN
== END 2020-09-01 14:10 | DRG 811 ==
LOC: M ED 20:13 → EEVIPCON 08-25 01:35 → M ED INP 08-25 01:35 → ENRESERV 08-25 02:00 → M MSPAV 08-25 02:26
PROVIDERS: ADMIT Internal Medicine; ATTEND Internal Medicine
PROC: 30233N1 Transfusion of Nonautologous Red Blood Cells into Peripheral Vein, Percutaneous Approach (ICD-10-PCS; principal; 2020-08-25)
DX: D64.9 Anemia, unspecified (principal); I50.33 Acute on chronic diastolic (congestive) heart failure; I24.8 Other forms of acute ischemic heart disease; E27.40 Unspecified adrenocortical insufficiency; I48.20 Chronic atrial fibrillation, unspecified; E46 Unspecified protein-calorie malnutrition; E87.6 Hypokalemia; J44.9 Chronic obstructive pulmonary disease, unspecified; E11.9 Type 2 diabetes mellitus without complications; G25.81 Restless legs syndrome; G47.00 Insomnia, unspecified; I11.0 Hypertensive heart disease with heart failure; Z79.899 Other long term (current) drug therapy; Z79.4 Long term (current) use of insulin; Z79.82 Long term (current) use of aspirin; Z88.8 Allergy status to other drugs, medicaments and biological substances; Z86.73 Personal history of transient ischemic attack (TIA), and cerebral infarction without residual deficits; F17.200 Nicotine dependence, unspecified, uncomplicated; F41.9 Anxiety disorder, unspecified; E78.5 Hyperlipidemia, unspecified; E04.1 Nontoxic single thyroid nodule

== ENCOUNTER → 2020-09-13 | Outpatient (REF) ==
[~2020-09-13] MED LIST changes: +**Note Patient Comment XX; +ACET1TAB55 PO; +ACET25TA12 PO; +ALPR1TAB3 PO; +BASA100I SC; +BISA10SU PR; +CALC1TAB74 PO; +CORT5TAB2 PO; +DIPH50CA PO; +ENEMENE PR; +KLOR10TA76 PO; +LEVA12INH INH; +LIDO5TD TD; +MOM30SS2 PO; +NICO7PA TOP; +NITR4TASL SL; +OMEP-218 PO; +PERCOCET PO; +TORS10TA3 PO; +TRAZ-252 PO
[2020-09-13 09:27] LABS: ALBUMIN 2.3 GM/DL (3.2-5.2); ALT/SGPT 11 U/L (12-78); BILIRUBIN,TOTAL 0.2 MG/DL (0.2-1.0); BLOOD UREA NITROGEN 27 MG/DL (7-18); CALCIUM LEVEL 8.4 MG/DL (8.8-10.2); CARBON DIOXIDE LEVEL 28 MEQ/L (21-32); CHLORIDE LEVEL 103 MEQ/L (98-107); CREATININE FOR GFR 0.57 MG/DL (0.55-1.30); GLOMERULAR FILTRATION RATE > 60.0 (>39); GLUCOSE, FASTING 75 MG/DL (70-100); IRON (FE) 65 UG/DL (50-170); PERCENT SATURATION 43.6 % (13.2-45.0); POTASSIUM SERUM 4.5 MEQ/L (3.5-5.1); SODIUM LEVEL 139 MEQ/L (136-145); TOTAL IRON BINDING CAPACITY 149 UG/DL (250-450); TOTAL PROTEIN 5.2 GM/DL (6.4-8.2)
== END ==
LOC: SKLAB2 08:00
PROVIDERS: ATTEND Internal Medicine
DX: D64.9 Anemia, unspecified (principal)

== ENCOUNTER → 2020-09-13 | Outpatient (REF) | payer MEDICARE, MEDICAID | LOC: SKLAB3 12:19 | PROVIDERS: ATTEND Internal Medicine | DX: Z22.322 Carrier or suspected carrier of Methicillin resistant Staphylococcus aureus (principal) ==

== ENCOUNTER → 2020-09-22 | Outpatient (REF) | LOC: SKLAB3 11:07 | PROVIDERS: ATTEND Internal Medicine | DX: Z20.828 Contact with and (suspected) exposure to other viral communicable diseases (principal) ==

== ENCOUNTER → 2020-09-27 | Outpatient (REF) | payer MEDICAID, MEDICARE ==
[~2020-09-27] MED LIST changes: -ASPI-261 PO; +ASPI-559 PO
== END ==
LOC: SKLAB3 07:00
PROVIDERS: ATTEND Internal Medicine
DX: Z11.2 Encounter for screening for other bacterial diseases (principal)

== ENCOUNTER → 2020-09-28 | Outpatient (REF) | payer MEDICARE, MEDICAID ==
[~2020-09-28] MED LIST changes: -ALEN70TA74 PO; +ALEN70TA82 PO
== END ==
LOC: SKLAB3 09-27 12:50 → EDSTATUS 10-12 13:52
PROVIDERS: ATTEND Internal Medicine
DX: Z20.828 Contact with and (suspected) exposure to other viral communicable diseases (principal)

== ENCOUNTER → 2020-09-29 | Outpatient (REF) | payer MEDICAID, MEDICARE ==
[~2020-09-29] MED LIST changes: +ALEN70TA74 PO; -ALEN70TA82 PO
--- NOTE | 2020-09-29 15:12 | REP ---
INDICATION: PARASTESIA. COMPARISON: None. TECHNIQUE: AP, lateral, flexion/extension, swimmer's, and open mouth views of the cervical spine FINDINGS: Advanced osteopenia and advanced multilevel degenerative and postsurgical changes are appreciated. Evaluation is markedly limited due to positioning and overlying soft tissue structures obscuring adequate visualization of the cervical vertebral bodies. IMPRESSION: Markedly limited examination. Consider CT or MRI for further investigation if the patient remains symptomatic. <Electronically signed by Anastacio Ritchie > 09/29/20 [id number]
== END ==
LOC: SKLAB3 07:00
PROVIDERS: ATTEND Internal Medicine
DX: M85.9 Disorder of bone density and structure, unspecified (principal)

== ENCOUNTER → 2020-10-04 | Outpatient (REF) ==
[~2020-10-04] MED LIST changes: +ASPI-261 PO; -ASPI-559 PO
[2020-10-04 10:01] LABS: BLOOD UREA NITROGEN 22 MG/DL (7-18); CALCIUM LEVEL 8.4 MG/DL (8.8-10.2); CARBON DIOXIDE LEVEL 28 MEQ/L (21-32); CHLORIDE LEVEL 103 MEQ/L (98-107); CREATININE FOR GFR 0.81 MG/DL (0.55-1.30); GLOMERULAR FILTRATION RATE > 60.0 (>39); GLUCOSE, FASTING 97 MG/DL (70-100); POTASSIUM SERUM 4.1 MEQ/L (3.5-5.1); SODIUM LEVEL 139 MEQ/L (136-145)
== END ==
LOC: SKLAB3 07:15
PROVIDERS: ATTEND Internal Medicine
DX: I50.9 Heart failure, unspecified (principal); Z11.2 Encounter for screening for other bacterial diseases

== ENCOUNTER → 2020-10-05 | Outpatient (REF) | payer MEDICARE, MEDICAID ==
[~2020-10-05] MED LIST changes: -ASPI-261 PO; +ASPI-559 PO
== END ==
LOC: SKLAB3 08:00
PROVIDERS: ATTEND Internal Medicine
DX: Z20.828 Contact with and (suspected) exposure to other viral communicable diseases (principal)

== ENCOUNTER → 2020-10-12 | Outpatient (REF) ==
[2020-10-12 09:20] LABS: HEMOGLOBIN 11.2 g/dl (12.0-15.5); MEAN CORPUSCULAR HEMOGLOBIN 30.9 pg (27.0-33.0); MEAN CORPUSCULAR HGB CONC 31.1 g/dl (32.0-36.5); MEAN CORPUSCULAR VOLUME 99.4 fl (80.0-96.0); PLATELET COUNT, AUTOMATED 526 10^3/uL (150-450); RED BLOOD COUNT 3.62 10^6/uL (4.00-5.40)
[2020-10-12 09:46] LABS: BLOOD UREA NITROGEN 22 MG/DL (7-18); CALCIUM LEVEL 8.6 MG/DL (8.8-10.2); CARBON DIOXIDE LEVEL 28 MEQ/L (21-32); CHLORIDE LEVEL 105 MEQ/L (98-107); CREATININE FOR GFR 0.68 MG/DL (0.55-1.30); GLOMERULAR FILTRATION RATE > 60.0 (>39); GLUCOSE, FASTING 102 MG/DL (70-100); NT-PRO BNP 1067 PG/ML (<450); POTASSIUM SERUM 4.9 MEQ/L (3.5-5.1); SODIUM LEVEL 138 MEQ/L (136-145)
== END ==
LOC: SKLAB3 08:32
PROVIDERS: ATTEND Internal Medicine
DX: I50.9 Heart failure, unspecified (principal); J44.9 Chronic obstructive pulmonary disease, unspecified

== ENCOUNTER → 2020-10-12 | Outpatient (REF) | payer MEDICARE, MEDICAID | LOC: SKLAB3 08:00 | PROVIDERS: ATTEND Internal Medicine | DX: Z20.828 Contact with and (suspected) exposure to other viral communicable diseases (principal) ==

== ENCOUNTER → 2020-10-12 | Outpatient (CLI) | payer MEDICARE, MEDICAID ==
--- NOTE | 2020-10-12 12:40 | REP ---
INDICATION: SOB/COPD/CHF COMPARISON: 08/30/2020 TECHNIQUE: PA and lateral. FINDINGS: The mediastinum and cardiac silhouette are stable and grossly within normal limits. The lung oshea demonstrate diffuse stable chronic changes without acute consolidation. Opacity at the left base appears improved and may represent small residual pleural effusion or chronic change. The skeletal structures are intact and there is evidence for old healed rib fractures and old healed left proximal humerus fracture. IMPRESSION: Chronic stable changes. No focal consolidation. Opacity at the left base appears improved and may represent chronic changes versus small residual pleural effusion. <Electronically signed by Anastacio Ritchie > 10/12/20 [id number]
== END ==
LOC: M RAD 09:29
PROVIDERS: ATTEND Nurse Practitioner Family
DX: R06.02 Shortness of breath (principal); J44.9 Chronic obstructive pulmonary disease, unspecified; I50.9 Heart failure, unspecified; R91.8 Other nonspecific abnormal finding of lung field

== ENCOUNTER → 2020-10-13 | Outpatient (REF) ==
[2020-10-13 08:11] LABS: HEMATOCRIT 32.5 % (36.0-47.0); HEMOGLOBIN 9.7 g/dl (12.0-15.5); MEAN CORPUSCULAR HEMOGLOBIN 30.1 pg (27.0-33.0); MEAN CORPUSCULAR HGB CONC 29.8 g/dl (32.0-36.5); MEAN CORPUSCULAR VOLUME 100.9 fl (80.0-96.0); PLATELET COUNT, AUTOMATED 442 10^3/uL (150-450); RED BLOOD COUNT 3.22 10^6/uL (4.00-5.40); WHITE BLOOD COUNT 10.9 10^3/uL (4.0-10.0)
[2020-10-13 16:17] LABS: BLOOD UREA NITROGEN 25 MG/DL (7-18); CALCIUM LEVEL 8.8 MG/DL (8.8-10.2); CARBON DIOXIDE LEVEL 24 MEQ/L (21-32); CHLORIDE LEVEL 105 MEQ/L (98-107); CREATININE FOR GFR 0.81 MG/DL (0.55-1.30); GLOMERULAR FILTRATION RATE > 60.0 (>39); GLUCOSE, FASTING 239 MG/DL (70-100); POTASSIUM SERUM 4.6 MEQ/L (3.5-5.1); SODIUM LEVEL 140 MEQ/L (136-145)
== END ==
LOC: SKLAB3 07:00
PROVIDERS: ATTEND Internal Medicine
DX: D72.829 Elevated white blood cell count, unspecified (principal)

== ENCOUNTER → 2020-10-17 | Outpatient (REF) ==
[2020-10-17 08:42] LABS: HEMATOCRIT 35.8 % (36.0-47.0); MEAN CORPUSCULAR HEMOGLOBIN 30.4 pg (27.0-33.0); MEAN CORPUSCULAR HGB CONC 30.7 g/dl (32.0-36.5); MEAN CORPUSCULAR VOLUME 98.9 fl (80.0-96.0); PLATELET COUNT, AUTOMATED 509 10^3/uL (150-450); RED BLOOD COUNT 3.62 10^6/uL (4.00-5.40); WHITE BLOOD COUNT 10.1 10^3/uL (4.0-10.0)
[2020-10-17 09:03] LABS: BLOOD UREA NITROGEN 21 MG/DL (7-18); CALCIUM LEVEL 8.2 MG/DL (8.8-10.2); CARBON DIOXIDE LEVEL 30 MEQ/L (21-32); CHLORIDE LEVEL 105 MEQ/L (98-107); CREATININE FOR GFR 0.74 MG/DL (0.55-1.30); GLOMERULAR FILTRATION RATE > 60.0 (>39); GLUCOSE, FASTING 93 MG/DL (70-100); NT-PRO BNP 1207 PG/ML (<450); POTASSIUM SERUM 4.1 MEQ/L (3.5-5.1); SODIUM LEVEL 142 MEQ/L (136-145)
== END ==
LOC: SKLAB3 07:00
PROVIDERS: ATTEND Internal Medicine
DX: I50.9 Heart failure, unspecified (principal)

== ENCOUNTER → 2020-10-19 | Outpatient (REF) | LOC: SKLAB3 07:04 | PROVIDERS: ATTEND Internal Medicine | DX: Z20.828 Contact with and (suspected) exposure to other viral communicable diseases (principal) ==

== ENCOUNTER → 2020-10-25 | Outpatient (CLI) | payer MEDICARE, MEDICAID | LOC: M RAD 10:47 | PROVIDERS: ATTEND Nurse Practitioner Family | DX: Z53.9 Procedure and treatment not carried out, unspecified reason (principal); M25.562 Pain in left knee ==

== ENCOUNTER → 2020-10-25 | Outpatient (REF) ==
[2020-10-25 10:35] LABS: BLOOD UREA NITROGEN 27 MG/DL (7-18); CALCIUM LEVEL 9.1 MG/DL (8.8-10.2); CARBON DIOXIDE LEVEL 29 MEQ/L (21-32); CHLORIDE LEVEL 103 MEQ/L (98-107); CREATININE FOR GFR 0.88 MG/DL (0.55-1.30); GLOMERULAR FILTRATION RATE > 60.0 (>39); GLUCOSE, FASTING 195 MG/DL (70-100); NT-PRO BNP 520 PG/ML (<450); POTASSIUM SERUM 4.1 MEQ/L (3.5-5.1); SODIUM LEVEL 140 MEQ/L (136-145)
--- NOTE | 2020-10-25 12:48 | REP ---
INDICATION: KNEE PAIN. COMPARISON: Comparison left knee radiographs November 30, 2012.. TECHNIQUE: Four views. No sunrise views included. FINDINGS: Four views of the left knee demonstrate marked diffuse osteopenia. No fracture is seen. There is osteoarthritic narrowing, sclerosis and irregularity of the medial compartment of the knee. Patellofemoral narrowing is seen. There is mild spurring at the lateral compartment. There are large spurs anteriorly and posteriorly in the distal femur. At the posterior joint line there are 2 well corticated osteophytic bodies consistent with loose bodies. These were present previously. The largest of these measures 19 mm in greatest diameter. In addition, in the region of the suprapatellar bursa, there is also a large calcific density which could be a another loose body. This measures 4.1 cm in greatest diameter and has enlarged since the 2013 study although it is not new. There is chondrocalcinosis in the lateral compartment which is unchanged. Vascular calcification is noted.. No fracture or subluxation is seen. No opaque foreign body noted. 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 The osteoarthritic changes are most pronounced in the medial compartment. Findings have progressed although slightly when compared with prior study from 2013. Multiple loose bodies. No fractures seen.. <Electronically signed by Lex Mcrae > 10/25/20 [id number]
== END ==
LOC: SKLAB3 10:04
PROVIDERS: ATTEND Internal Medicine
DX: I50.9 Heart failure, unspecified (principal); D49.2 Neoplasm of unspecified behavior of bone, soft tissue, and skin; M19.90 Unspecified osteoarthritis, unspecified site

== ENCOUNTER → 2020-10-26 | Outpatient (REF) | LOC: SKLAB3 10:06 | PROVIDERS: ATTEND Internal Medicine | DX: Z20.828 Contact with and (suspected) exposure to other viral communicable diseases (principal) ==

== ENCOUNTER → 2020-11-02 | Outpatient (REF) | LOC: SKLAB3 07:00 | PROVIDERS: ATTEND Internal Medicine | DX: Z20.828 Contact with and (suspected) exposure to other viral communicable diseases (principal) ==

== ENCOUNTER → 2020-11-16 | Outpatient (REF) | payer MEDICARE, MEDICAID ==
[2020-11-17 14:01] LABS: PERCENT SATURATION 27.5 % (13.2-45.0)
== END ==
LOC: M LAB REF 12:18
PROVIDERS: ATTEND Internal Medicine
DX: D64.9 Anemia, unspecified (principal)

== ENCOUNTER → 2020-12-13 | Outpatient (REF) | payer MEDICARE, MEDICAID ==
[~2020-12-13] MED LIST changes: -ALEN70TA74 PO; +ALEN70TA82 PO
[2020-12-13 16:28] LABS: HEMATOCRIT 33.8 % (36.0-47.0); HEMOGLOBIN 10.5 g/dl (12.0-15.5); MEAN CORPUSCULAR HEMOGLOBIN 30.3 pg (27.0-33.0); MEAN CORPUSCULAR HGB CONC 31.1 g/dl (32.0-36.5); MEAN CORPUSCULAR VOLUME 97.7 fl (80.0-96.0); PLATELET COUNT, AUTOMATED 636 10^3/uL (150-450); RED BLOOD COUNT 3.46 10^6/uL (4.00-5.40); WHITE BLOOD COUNT 6.6 10^3/uL (4.0-10.0)
[2020-12-13 16:40] LABS: BLOOD UREA NITROGEN 8 MG/DL (7-18); CARBON DIOXIDE LEVEL 24 MEQ/L (21-32); CHLORIDE LEVEL 105 MEQ/L (98-107); CREATININE FOR GFR 0.44 MG/DL (0.55-1.30); GLOMERULAR FILTRATION RATE > 60.0 (>39); GLUCOSE, FASTING 84 MG/DL (70-100); POTASSIUM SERUM 4.2 MEQ/L (3.5-5.1); SODIUM LEVEL 140 MEQ/L (136-145)
[2020-12-13 18:00] LABS: BASOPHILS 1 % (0-1); LYMPHOCYTES 43 % (16-44); MONOCYTES 12 % (0-5); NEUTROPHILS 44 % (28-66); PLATELET ESTIMATE INCREASED (NORMAL)
== END ==
LOC: M LAB REF 15:16
PROVIDERS: ATTEND Physician Assistant Medical
DX: N18.2 Chronic kidney disease, stage 2 (mild) (principal); D64.9 Anemia, unspecified

== ENCOUNTER 2021-03-18 02:41 | Inpatient (IN) | payer MEDICARE, MEDICAID ==
[~2021-03-18] VITALS: Ht 154.9 cm; Wt 50.9 kg
[~2021-03-18 02:41] MED LIST changes: -ASPI-559 PO; +ASPI325T3 PO
[2021-03-18] MEDS ORDERED: ONDANSETRON 4MG/2ML VIAL IV ONE (03:35)
[2021-03-18] MEDS: MORPHINE 4 MG/ML 1ML VIAL/SYRINGE (J2270) IV PRN ×2 (04:23→04:49)
[2021-03-18 04:26] LABS: VENOUS BASE EXCESS -0.4 (-2.0-2.0); VENOUS HCO3 24.6 MEQ/L (23.0-27.0); VENOUS O2 SATURATION 77.6 % (60.0-80.0); VENOUS PARTIAL PRESSURE CO2 42.2 mmHg (38.0-50.0); VENOUS PARTIAL PRESSURE O2 43.2 mmHg (30.0-50.0); VENOUS PH 7.384 UNITS (7.330-7.430); VENOUS STANDARD HCO3 23.8 MEQ/L; VENOUS TOTAL CO2 25.9 MEQ/L (24.0-28.0)
[2021-03-18 04:28] LABS: BASO # 0.1 10^3/uL (0.0-0.2); BASO % 0.7 % (0.0-1.0); EOS # 0.1 10^3/uL (0.0-0.5); HEMATOCRIT 28.6 % (36.0-47.0); HEMOGLOBIN 8.2 g/dl (12.0-15.5); LYMPH # 1.5 10^3/uL (1.5-5.0); LYMPH % 11.1 % (24.0-44.0); MEAN CORPUSCULAR HGB CONC 28.7 g/dl (32.0-36.5); MEAN CORPUSCULAR VOLUME 87.2 fl (80.0-96.0); MONO # 1.9 10^3/uL (0.0-0.8); MONO % 14.1 % (2.0-8.0); NEUTROPHILS # 9.9 10^3/uL (1.5-8.5); NEUTROPHILS % 72.4 % (36.0-66.0); PLATELET COUNT, AUTOMATED 481 10^3/uL (150-450); RED BLOOD COUNT 3.28 10^6/uL (4.00-5.40)
[2021-03-18 04:34] LABS: WHITE BLOOD COUNT 13.6 10^3/uL (4.0-10.0)
--- NOTE | 2021-03-18 04:46 | REPVR ---
PROCEDURE INFORMATION: Exam: XR Chest Exam date and time: 03/18/2021 4:07 AM Age: 76 years old Clinical indication: Other: Chest pain TECHNIQUE: Imaging protocol: XR of the chest. Views: 1 view. COMPARISON: CR Chest, 2 view PA, Lat 10/12/2020 10:10 AM FINDINGS: Lungs: Unremarkable. No consolidation. Pleural spaces: Unremarkable. No pleural effusion. No pneumothorax. Heart/Mediastinum: Mild cardiomegaly. Bones/joints: Healed left proximal humerus fracture and multiple healed rib fractures. IMPRESSION: 1. No acute findings. 2. Mild cardiomegaly. Electronically signed by: Elliott Kelsey On 03/18/2021 04:45:42 AM
[2021-03-18 05:02] LABS: BLOOD UREA NITROGEN 30 MG/DL (7-18); CALCIUM LEVEL 8.4 MG/DL (8.8-10.2); CARBON DIOXIDE LEVEL 28 MEQ/L (21-32); CHLORIDE LEVEL 107 MEQ/L (98-107); CK-MB VALUE MASS < 1.0 NG/ML (<3.6); CPK CREATINE PHOSPHOKINASE 83 U/L (26-192); CREATININE FOR GFR 1.39 MG/DL (0.55-1.30); GLOMERULAR FILTRATION RATE 39.1 (>39); GLUCOSE, FASTING 243 MG/DL (70-100); POTASSIUM SERUM 5.2 MEQ/L (3.5-5.1); SODIUM LEVEL 141 MEQ/L (136-145); TROPONIN I < 0.02 NG/ML (< 0.10)
[2021-03-18] MEDS ORDERED: ISOVUE-370 76% 100ML VIAL As Ordered ONE (05:30)
[2021-03-18 05:53] LABS: INR 1.56
[2021-03-18 05:54] LABS: PARTIAL THROMBOPLASTIN TIME 34.1 SECONDS (24.2-38.5)
--- NOTE | 2021-03-18 05:58 | REPVR ---
PROCEDURE INFORMATION: Exam: CT Chest With Contrast; Diagnostic Exam date and time: 03/18/2021 5:17 AM Age: 76 years old Clinical indication: Pain; Other: Back; Additional info: Back pain, SOB TECHNIQUE: Imaging protocol: Diagnostic computed tomography of the chest with contrast. Radiation optimization: All CT scans at this facility use at least one of these dose optimization techniques: automated exposure control; mA and/or kV adjustment per patient size (includes targeted exams where dose is matched to clinical indication); or iterative reconstruction. Contrast material: ISO; Contrast volume: 75 ml; Contrast route: INTRAVENOUS (IV); COMPARISON: CT Chest without contrast 08/25/2020 1:59 PM FINDINGS: Lungs: Mild interstitial scarring. Bibasilar atelectasis versus pulmonary scarring. No other airspace infiltrates or masses. Pleural spaces: Unremarkable. No pneumothorax. No pleural effusion. Heart: Mild cardiomegaly. Three-vessel coronary artery atherosclerotic disease. Pulmonary arteries: Main pulmonary artery is mildly dilated. No pulmonary embolism. Aorta: Mild aortic atherosclerotic disease. No aortic aneurysm or dissection. Lymph nodes: Unremarkable. No enlarged lymph nodes. Gallbladder and bile ducts: Incidental cholelithiasis. Bones/joints: Numerous healed rib fractures are noted. Chronic compression fractures of T3 and T7. Progressive height loss at T7. No new fractures. Soft tissues: Unremarkable. IMPRESSION: 1. No acute findings. 2. Coronary artery disease. Cardiomegaly. 3. Chronic T3 and T7 compression fractures with progressive height loss at T7. Electronically signed by: Elliott Kelsey On 03/18/2021 05:57:40 AM
[2021-03-18] MEDS ORDERED: methylPREDNISolone 125MG 2ML VIAL IV ONE (06:30)
[2021-03-18] MEDS ORDERED: TRAZ-252 PO (06:58)
[2021-03-18] MEDS ORDERED: HYDR-4467 PO ×2 (06:58)
[2021-03-18] MEDS ORDERED: TORS20TA2 PO (06:58)
[2021-03-18] MEDS ORDERED: NS 500 ML IV ONE ×2 (07:05→09:15)
[2021-03-18 07:21] LABS: RSV AMPLIFICATION NEGATIVE (NEGATIVE)
[2021-03-18] MEDS ORDERED: DEXTROSE 50% 50 ML SYRINGE IV PRN (07:35)
[2021-03-18] MEDS ORDERED: NITROGLYCERIN 0.4 MG SUBL TABLET SL PRN (07:35)
[2021-03-18] MEDS ORDERED: GLUCAGON INJ 1MG VIAL SC PRN (07:35)
[2021-03-18] MEDS ORDERED: GLUCOSE 4GM CHEW TABLET PO PRN (07:35)
[2021-03-18] MEDS ORDERED: IPRATROPIUM 0.5MG/ALBUTEROL 2.5MG INH SOL UD 3ML (DUONEB) NEB PRN (07:35)
[2021-03-18 08:15] LABS: FERRITIN 10 NG/ML (8-252); IRON (FE) 18 UG/DL (50-170); LDH LACTATE DEHYDROGENASE 398 U/L (84-246); PERCENT SATURATION 5.7 % (13.2-45.0); TOTAL IRON BINDING CAPACITY 317 UG/DL (250-450)
[2021-03-18] MEDS: HYDROCORTISONE 5MG TABLET PO SCH (09:00)
[2021-03-18] MEDS: TIOTROPIUM INHALER/CAPSULE (SPIRIVA) INH SCH (09:51)
[2021-03-18] MEDS: ADVAIR HFA 230/21MCG INHALER INH SCH ×2 (09:51→20:27)
[2021-03-18] MEDS: FLUTICASONE PROP 0.05% NASAL SPRAY 16 GM (FLONASE) NARES SCH (10:11)
[2021-03-18] MEDS: LIDOCAINE 5% (LIDODERM) PATCH TD SCH (10:12)
[2021-03-18] MEDS: APIXABAN 5 MG TAB (ELIQUIS) PO SCH ×2 (10:12→21:23)
[2021-03-18] MEDS: ACETAMINOPHEN 500 MG TAB PO SCH ×3 (10:13→21:22)
[2021-03-18] MEDS: busPIRone 5 MG TAB PO SCH ×2 (10:13→21:23)
[2021-03-18] MEDS: rOPINIRole 1MG TAB PO SCH ×2 (10:13→21:21)
[2021-03-18 12:00] VITALS: BP 118/56
--- NOTE | 2021-03-18 12:48 | HPEPDOC ---
General Date of Admission March 18, 2021 at 07:30 Date of Service: March 18, 2021 Chief Complaint The patient is a 76-year-old female admitted with a reason for visit of Acute Anemia,Compression Fracture Of Thoracic Vert. Source: Patient, Family History of Present Illness Mrs. Solano is a 76 year old female with COPD, chronic back pain from compression fractures, and chronic anemia who presents with worsening back pain and dyspnea. Patient was last admitted in August 2020 and discharged to [facility]. tells me that she was discharged from [facility] 2 days prior to [place], and she has been living at home. She was doing okay at home until a few days ago. Patient started to have increasing back pain. Denies any falls or trauma. She is not sure what had caused the increased pain. Otherwise, denies fever or abdominal pain. She came to the ED for evaluation. CT chest with contrast did not find any acute process, but does demonstrate chronic T3 and T7 compression fracture with progressive height loss at T7. Patient was given morphine which helped with both breathing and pain. After receiving the morphine, her blood pressure dropped to a SBP in the 80's. Otherwise, workup is significant for anemia. Her previous hemoglobin was 10 and now it is 8. Patient will be admitted for intractable back pain secondary to compression fracture and anemia. Home Medications Scheduled Alendronate Sodium (Alendronate Sodium) 70 Mg Tablet, 70 MG PO QWEEK, (Reported) SATURDAY Amiodarone HCl (Amiodarone HCl) 200 Mg Tablet, 200 MG PO 3XW, (Reported) SATURDAY, SATURDAY AND SATURDAY Apixaban (Eliquis) 5 Mg Tablet, 5 MG PO BID, (Reported) Buspirone HCl (Buspirone HCl) 5 Mg Tablet, 5 MG PO BID, (Reported) Diltiazem HCl (Diltiazem 24Hr ER) 240 Mg Cap.er.24h, 240 MG PO BID, (Reported) Fluticasone Propionate (Fluticasone Propionate) 16 Gm [place].susp, 2 SPRAYS NARES DAILY, (Reported) Fluticasone/Umeclidin/Vilanter (Trelegy Ellipta 100-62.5-25) 1 Each Blst.w.dev, 1 PUFF INH DAILY, (Reported) Hydrocortisone (Hydrocortisone) 5 Mg Tablet, 15 MG PO QAM, (Reported) Hydrocortisone (Hydrocortisone) 5 Mg Tablet, 10 MG PO QHS, (Reported) Metformin HCl (Metformin HCl) 1,000 Mg Tablet, 1,000 MG PO BID, (Reported) Ropinirole HCl (Ropinirole HCl) 1 Mg Tablet, 1 MG PO BID, (Reported) Torsemide (Torsemide) 20 Mg Tablet, 20 MG PO BID, (Reported) Trazodone HCl (Trazodone HCl) 50 Mg Tablet, 50 MG PO QHS, (Reported) Scheduled PRN Nitroglycerin (Nitrostat) 0.4 Mg Tab.subl, 0.4 MG SL Q5MP PRN for CHEST PAIN, (R eported) Allergies Coded Allergies: propoxyphene (Verified Allergy, Intermediate, hives, 08/24/20) Past Medical History Medical History 1. CVA and TIA 2. Seizure 25 years ago 3. Diastolic heart failure 4. SVT 5. Atrial fibrillation 6. Chronic bronchitis, COPD 7. Rib fracture 4 weeks ago 8. History of SBO 9. Adrenal insufficiency 10. Urinary retention 11. Arthritis 12. Anxiety 13. 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 Anemia 15. Fractured 8th vertebra 16. Chronic T3 and T7 compression fractures Surgical History 1. Bilateral cataracts 2. L breast biopsy 3. Hysterectomy 4. Cervical and thoracic spine surgery Family History Father: Diabetes Mother: COPD Social History * Smoker: former Smoker Alcohol: Denies Drugs: denies A-FIB/CHADSVASC A-FIB History Current/History of A-Fib/PAF?: Yes Current PO Anticoag Therapy: Yes Review of Systems Constitutional: Denies: Chills, Fever Eyes: Denies: Vision change ENT: Denies: Sore Throat Skin: Denies: Rash Pulmonary: Reports: Dyspnea, Cough Cardiovascular: Denies: Chest Pain Gastrointestinal: Denies: Abdominal Pain Genitourinary: Denies: Dysuria Hematologic: Denies: Bruising Musculoskeletal: Reports: Back Pain (upper back) Neurological: Denies: Numbness Physical Examination General Exam: Positive: Alert, Cooperative Eye Exam: Positive: EOMI; Negative: Sclera icteric ENT Exam: Positive: Atraumatic Neck Exam: Positive: Supple Chest Exam: Positive: Clear to auscultation Heart Exam: Positive: Bradycardic, Regular Rhythm Abdomen Exam: Positive: Normal bowel sounds, Soft; Negative: Tenderness Extremity Exam: Positive: Edema (mild bilateral pitting edema) Neuro Exam: Positive: Normal Speech Psych Exam: Positive: Mental status NL, Mood NL Vital Signs Vital Signs Date Time Temp Pulse Resp B/P (MAP) Pulse Ox O2 Delivery O2 Flow Rate FiO2 03/18/21 09:01 98.3 49 22 101/58 (72) 95 03/18/21 06:45 Nasal Cannula 2.0 Laboratory Data Labs 24H Laboratory Tests 2 03/18/21 04:17: Immature Granulocyte % (Auto) 0.7, Neutrophils (%) (Auto) 72.4H, Lymphocytes (%) (Auto) 11.1L, Monocytes (%) (Auto) 14.1H, Eosinophils (%) (Auto) 1.0, Basophils (%) (Auto) 0.7, Neutrophils # (Auto) 9.9H, Lymphocytes # (Auto) 1.5, Monocytes # (Auto) 1.9H, Eosinophils # (Auto) 0.1, Basophils # (Auto) 0.1, Reticulocyte # (auto) 63.9, Nucleated Red Blood Cells % (auto) 0.0, Percent Reticulocyte Count 1.9H, Reticulocyte Hemoglobin Equivalent 20.6L, Prothrombin Time 19.0H, Prothromb Time International Ratio 1.56, Activated Partial Thromboplast Time 34.1, Blood Gas Bicarbonate Standard 23.8, Venous Blood pH 7.384, Venous Blood Partial Pressure CO2 42.2, Venous Blood Partial Pressure O2 43.2, Venous Blood Total Carbon Dioxide 25.9, Venous Blood HCO3 24.6, Venous Blood Oxygen Saturation 77.6, Venous Blood Base Excess -0.4, Anion Gap 6L, Glomerular Filtration Rate 39.1, Calcium Level 8.4L, Iron Level 18L, Total Iron Binding Capacity 317, Transferrin % Saturation 5.7L, Ferritin 10, Lactate Dehydrogenase 398H, Total Creatine Kinase 83, Creatine Kinase MB < 1.0, Creatine Kinase MB Relative Index 1.20, Troponin I < 0.02 03/18/21 06:32: Coronavirus (COVID-19)(PCR) NEGATIVE, Influenza Type A (RT-PCR) NEGATIVE, Influenza Type B (RT-PCR) NEGATIVE, Respiratory Syncytial Virus (PCR) NEGATIVE 03/18/21 09:41: Troponin I < 0.02 CBC/BMP Laboratory Tests 03/18/21 04:17 Assessment/Plan Mrs. Solano is a 76 year old female with COPD, chronic back pain from compression fractures, and chronic anemia who presents with worsening back pain and dyspnea. Will try to control pain using scheduled acetaminophen, lidocaine, and PRN OxyIR. Otherwise, we will do anemia work up. Patient did demonstrate some bradycardia. Will discontinue cardizem. Patient is not in atrial fibrillation at this time. Echocardiogram has been ordered. Otherwise, due to her hypotension, Lasix will be held and fluid boluses will be given. Plan / VTE VTE Prophylaxis Ordered?: Yes Plan Plan 1. Intractable back pain -Secondary to compression fractures -Acetaminophen 1000mg TID, Lidocaine patch, and OxyIR 5mg q4h PRN -Can escalate as needed 2. Iron deficiency anemia -MCV lower than her normal. Normally around 100, but on admission it is 87.2 -Iron 18, TIBC 317, Ferritin 10 -Patient will be started on iron, vitamin C, and Colace 3. Bradycardia -Cardizem held -Echocardiogram ordered -Monitor on telemetry 4. COPD -Continue duonebs and triple therapy (ICS, LABA, LAMA) -Incentive spirometry as tolerated 5. Atrial fibrillation -Hold Cardizem due to bradycardia -Continue Amiodarone -Continue Apixaban 6. Adrenal insufficiency -Continue Hydrocortisone (15 in AM and 10 in PM) 7. DM type 2 -Sliding scale insulin and carbohydrate consistent diet 8. Chronic HFpEF -Appears to be compensated -Hold Torsemide due to hypotension 9. RSL -Continue ropinirole 10. DVT px -On apixaban Disposition: Pending control of pain, stability of hemoglobin, and improvement of heart rate and blood pressure ALLEGRA WILL DO March 18, 2021 12:48
--- NOTE | 2021-03-18 13:31 | ECGEPIP ---
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
[2021-03-18] MEDS: DOCUSATE SODIUM 100MG CAPSULE PO SCH ×2 (13:37→21:21)
[2021-03-18] MEDS: HumaLOG INSULIN (NovoLOG) PER UNIT SC SCH ×3 (13:37→21:00)
[2021-03-18] MEDS: ASCORBIC ACID 500 MG TAB PO SCH (13:37)
[2021-03-18] MEDS: FERROUS GLUCONATE 324 MG TAB PO SCH (13:37)
[2021-03-18] MEDS: oxyCODONE 5MG TAB PO PRN ×2 (16:34→21:23)
[2021-03-18 21:20] VITALS: BP 110/53
[2021-03-18] MEDS: HYDROCORTISONE 10 MG TAB PO SCH (21:21)
[2021-03-18] MEDS: traZODone 50 MG TAB PO SCH (21:23)
[2021-03-18] MEDS: **NOTE PATIENT COMMENT** MISC XX SCH (21:28)
[2021-03-19] VITALS (7 sets, daily range): BP systolic 110–163; BP diastolic 54–79
[2021-03-19 05:08] LABS: HEMATOCRIT 26.4 % (36.0-47.0); HEMOGLOBIN 7.5 g/dl (12.0-15.5); MEAN CORPUSCULAR HEMOGLOBIN 24.9 pg (27.0-33.0); MEAN CORPUSCULAR HGB CONC 28.4 g/dl (32.0-36.5); MEAN CORPUSCULAR VOLUME 87.7 fl (80.0-96.0); PLATELET COUNT, AUTOMATED 584 10^3/uL (150-450); RED BLOOD COUNT 3.01 10^6/uL (4.00-5.40); WHITE BLOOD COUNT 16.4 10^3/uL (4.0-10.0)
[2021-03-19 05:55] LABS: CALCIUM LEVEL 8.2 MG/DL (8.8-10.2); CREATININE FOR GFR 1.58 MG/DL (0.55-1.30); GLOMERULAR FILTRATION RATE 33.8 (>39); POTASSIUM SERUM 5.8 MEQ/L (3.5-5.1)
[2021-03-19] MEDS: ADVAIR HFA 230/21MCG INHALER INH SCH (07:17)
[2021-03-19] MEDS: TIOTROPIUM INHALER/CAPSULE (SPIRIVA) INH SCH (07:17)
[2021-03-19] MEDS: LIDOCAINE 5% (LIDODERM) PATCH TD SCH ×2 (08:01→09:00)
[2021-03-19] MEDS: HumaLOG INSULIN (NovoLOG) PER UNIT SC SCH ×4 (08:02→21:00)
[2021-03-19] MEDS: FERROUS GLUCONATE 324 MG TAB PO SCH (08:02)
[2021-03-19] MEDS: APIXABAN 5 MG TAB (ELIQUIS) PO SCH ×2 (08:02→22:12)
[2021-03-19] MEDS: ASCORBIC ACID 500 MG TAB PO SCH (08:02)
[2021-03-19] MEDS: ACETAMINOPHEN 500 MG TAB PO SCH ×3 (08:02→22:12)
[2021-03-19] MEDS: HYDROCORTISONE 5MG TABLET PO SCH ×2 (08:02→22:09)
[2021-03-19] MEDS: DOCUSATE SODIUM 100MG CAPSULE PO SCH ×2 (08:02→22:12)
[2021-03-19] MEDS: rOPINIRole 1MG TAB PO SCH ×2 (08:03→22:12)
[2021-03-19] MEDS: FLUTICASONE PROP 0.05% NASAL SPRAY 16 GM (FLONASE) NARES SCH (08:03)
[2021-03-19] MEDS: busPIRone 5 MG TAB PO SCH ×2 (08:03→22:12)
[2021-03-19] MEDS: TORSEMIDE 20 MG TAB PO SCH ×2 (08:03→22:10)
[2021-03-19] MEDS: oxyCODONE 5MG TAB PO PRN (08:07)
[2021-03-19] MEDS ORDERED: SOD POLYSTYRENE SULFONATE SUSP 15 GM/60 ML UD PO ONE ×3 (09:00→17:05)
[2021-03-19] MEDS: oxyCODONE 10 MG CR TAB PO SCH ×2 (12:17→22:11)
[2021-03-19 12:49] LABS: HEMATOCRIT 26.6 % (36.0-47.0); HEMOGLOBIN 7.5 g/dl (12.0-15.5); MEAN CORPUSCULAR HEMOGLOBIN 24.8 pg (27.0-33.0); MEAN CORPUSCULAR HGB CONC 28.2 g/dl (32.0-36.5); MEAN CORPUSCULAR VOLUME 88.1 fl (80.0-96.0); PLATELET COUNT, AUTOMATED 588 10^3/uL (150-450); RED BLOOD COUNT 3.02 10^6/uL (4.00-5.40); WHITE BLOOD COUNT 19.8 10^3/uL (4.0-10.0)
[2021-03-19 13:17] LABS: CALCIUM LEVEL 8.7 MG/DL (8.8-10.2); CREATININE FOR GFR 1.75 MG/DL (0.55-1.30); POTASSIUM SERUM 6.1 MEQ/L (3.5-5.1)
[2021-03-19] MEDS ORDERED: MORPHINE 2 MG/ML 1ML VIAL (J2270) As Ordered ONE (16:29)
[2021-03-19 16:41] LABS: CALCIUM LEVEL 8.6 MG/DL (8.8-10.2); CREATININE FOR GFR 1.65 MG/DL (0.55-1.30); GLOMERULAR FILTRATION RATE 32.1 (>39); POTASSIUM SERUM 5.2 MEQ/L (3.5-5.1)
[2021-03-19] MEDS ORDERED: MORPHINE 2 MG/ML 1ML VIAL (J2270) IV ONE (16:45)
--- NOTE | 2021-03-19 19:25 | ECGEPIP ---
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 No remarkable changes but mild s sinus tachycardia now noted. Electronically Signed on 03-19-2021 19:25:33 EDT by German Goodwin
--- NOTE | 2021-03-19 20:19 | IPNPDOC ---
Subjective Date Seen The patient was seen on 03/19/21. Subjective Chief Complaint/HPI Mrs. Solano is a 76 year old female with COPD, chronic back pain from compression fractures, and chronic anemia who presents with worsening back pain and dyspnea. This morning, she continued to have upper back pain. Increased the lidocaine patch to bilateral shoulders and added on Oxycontin 10mg BID. Otherwise, potassium was elevated. Gave Kayexalate Objective Physical Examination General Exam: Positive: Alert, Cooperative Eye Exam: Positive: EOMI; Negative: Sclera icteric ENT Exam: Positive: Atraumatic Neck Exam: Positive: Supple Chest Exam: Positive: Clear to auscultation Heart Exam: Positive: Bradycardic, Regular Rhythm Abdomen Exam: Positive: Normal bowel sounds, Soft; Negative: Tenderness Extremity Exam: Positive: Edema (mild bilateral pitting edema) Neuro Exam: Positive: Normal Speech Psych Exam: Positive: Mental status NL, Mood NL Assessment /Plan Assessment Mrs. Solano is a 76 year old female with COPD, chronic back pain from compression fractures, and chronic anemia who presents with worsening back pain and dyspnea. Will try to control pain using scheduled acetaminophen, lidocaine, and PRN OxyIR. Otherwise, we will do anemia work up. Patient did demonstrate some bradycardia. Will discontinue cardizem. Patient is not in atrial fibri llation at this time. Echocardiogram has been ordered. Plan/VTE VTE Prophylaxis Ordered?: Yes Plan 1. Intractable back pain -Secondary to compression fractures -Acetaminophen 1000mg TID, Lidocaine patch, and OxyIR 5mg q4h PRN -Added 2nd lidocain patch and OxyContin 10mg BID 2. Iron deficiency anemia -MCV lower than her normal. Normally around 100, but on admission it is 87.2 -Iron 18, TIBC 317, Ferritin 10 -Patient will be started on iron, vitamin C, and Colace -No BM today, added Miralax 3. Bradycardia -Cardizem held -Echocardiogram ordered -Monitor on telemetry 4. COPD -Continue duonebs and triple therapy (ICS, LABA, LAMA) -Incentive spirometry as tolerated 5. Atrial fibrillation -Hold Cardizem due to bradycardia -Continue Amiodarone -Continue Apixaban 6. Adrenal insufficiency -Continue Hydrocortisone (15 in AM and 10 in PM) 7. DM type 2 -Sliding scale insulin and carbohydrate consistent diet 8. Chronic HFpEF -Appears to be compensated -Added Torsemide as blood pressure is better 9. RSL -Continue ropinirole 10. DVT px -On apixaban Disposition: Pending control of pain, stability of hemoglobin, and improvement of heart rate VS, I&O[facility] Vital Signs/I&O Vital Signs Date Time Temp Pulse Resp B/P (MAP) Pulse Ox O2 Delivery O2 Flow Rate FiO2 03/19/21 18:00 163/79 (107) 03/19/21 16:44 17 03/19/21 16:34 Room Air 03/19/21 12:00 97.5 52 97 03/19/21 00:00 2.0 I&O- Last 24 Hours up to 6 AM 03/19/21 06:00 Intake Total 800 ml Balance 800 ml Laboratory Data 24H LABS Laboratory Tests 2 03/18/21 21:11: Bedside Glucose (Misc Panel) 185H 03/19/21 04:28: Nucleated Red Blood Cells % (auto) 0.0, Anion Gap 6L, Glomerular Filtration Rate 33.8L, Calcium Level 8.2L 03/19/21 11:43: Bedside Glucose (Misc Panel) 271H 03/19/21 12:39: Nucleated Red Blood Cells % (auto) 0.0, Anion Gap 7L, Glomerular Filtration Rate 30.0L, Calcium Level 8.7L, UR-Aet-S-Type Natriuretic Peptide 5419H 03/19/21 16:11: Anion Gap 7L, Glomerular Filtration Rate 32.1L, Calcium Level 8.6L 03/19/21 17:47: Bedside Glucose (Misc Panel) 107 CBC/BMP Laboratory Tests 03/19/21 04:28 03/19/21 12:39 03/19/21 16:11 ALLEGRA WILL DO March 19, 2021 20:19
[2021-03-19] MEDS: HYDROCORTISONE 10 MG TAB PO SCH (21:00)
[2021-03-19] MEDS: **NOTE PATIENT COMMENT** MISC XX SCH (21:00)
[2021-03-19] MEDS: traZODone 50 MG TAB PO SCH (22:12)
[2021-03-19] MEDS: MIRALAX *UNIT DOSE* 17GM PACKET PO SCH (22:19)
[2021-03-20] VITALS (14 sets, daily range): BP systolic 114–158; BP diastolic 57–82
[2021-03-20 05:17] LABS: HEMATOCRIT 24.9 % (36.0-47.0); HEMOGLOBIN 7.1 g/dl (12.0-15.5); MEAN CORPUSCULAR HEMOGLOBIN 24.6 pg (27.0-33.0); MEAN CORPUSCULAR HGB CONC 28.5 g/dl (32.0-36.5); MEAN CORPUSCULAR VOLUME 86.2 fl (80.0-96.0); PLATELET COUNT, AUTOMATED 587 10^3/uL (150-450); RED BLOOD COUNT 2.89 10^6/uL (4.00-5.40); WHITE BLOOD COUNT 16.6 10^3/uL (4.0-10.0)
[2021-03-20 05:34] LABS: CALCIUM LEVEL 7.3 MG/DL (8.8-10.2); CREATININE FOR GFR 1.25 MG/DL (0.55-1.30); GLOMERULAR FILTRATION RATE 44.2 (>39); POTASSIUM SERUM 5.2 MEQ/L (3.5-5.1)
[2021-03-20] MEDS: TIOTROPIUM INHALER/CAPSULE (SPIRIVA) INH SCH (07:09)
[2021-03-20] MEDS: ADVAIR HFA 230/21MCG INHALER INH SCH ×2 (07:09→19:29)
[2021-03-20] MEDS: HumaLOG INSULIN (NovoLOG) PER UNIT SC SCH ×4 (07:44→21:00)
[2021-03-20] MEDS ORDERED: SOD POLYSTYRENE SULFONATE SUSP 15 GM/60 ML UD PO ONE (08:00)
[2021-03-20] MEDS: rOPINIRole 1MG TAB PO SCH ×2 (08:21→21:34)
[2021-03-20] MEDS: LIDOCAINE 5% (LIDODERM) PATCH TD SCH (08:21)
[2021-03-20] MEDS: ASCORBIC ACID 500 MG TAB PO SCH (08:21)
[2021-03-20] MEDS: APIXABAN 5 MG TAB (ELIQUIS) PO SCH ×2 (08:21→21:34)
[2021-03-20] MEDS: FERROUS GLUCONATE 324 MG TAB PO SCH (08:21)
[2021-03-20] MEDS: busPIRone 5 MG TAB PO SCH ×2 (08:22→21:37)
[2021-03-20] MEDS: DOCUSATE SODIUM 100MG CAPSULE PO SCH ×2 (08:22→21:35)
[2021-03-20] MEDS: TORSEMIDE 20 MG TAB PO SCH ×2 (08:22→21:34)
[2021-03-20] MEDS: oxyCODONE 10 MG CR TAB PO SCH ×2 (08:22→21:34)
[2021-03-20] MEDS: ACETAMINOPHEN 500 MG TAB PO SCH ×3 (08:23→21:35)
[2021-03-20] MEDS: MIRALAX *UNIT DOSE* 17GM PACKET PO SCH (08:25)
[2021-03-20] MEDS: FLUTICASONE PROP 0.05% NASAL SPRAY 16 GM (FLONASE) NARES SCH (08:25)
[2021-03-20] MEDS: AMIODARONE 200 MG TAB (PACERONE) PO SCH (08:25)
[2021-03-20] MEDS: HYDROCORTISONE 5MG TABLET PO SCH (08:28)
--- NOTE | 2021-03-20 10:33 | ECHO ---
DATE OF PROCEDURE: 03/18/2021 Age: 76 Gender: Female REFERRING PROVIDER: ALLEGRA WILL DO PATIENT LOCATION: Room 3217 REASON FOR STUDY: Abnormal EKG. 2D MEASUREMENTS: IVS 1.3 cm LV 4.7 cm LVPW 1.2 cm LA 3.8 cm Aorta 3.3 cm RV 3.2 cm IVC 2.2 cm Ascending aorta 3.8 cm DOPPLER MEASUREMENT Peak velocity across the aortic valve 3.0 m/s Peak velocity across the LVOT 0.84 m/s Peak gradient across the aortic valve 36 mmHg Mean gradient across the aortic valve 18 mmHg Mitral E 1.1 Mitral A 0.42 with a ratio of greater than 1.0 Maximum tricuspid valve velocity 3.3 m/s 2D COMMENTS: 1. Mildly increased left ventricular wall thickness with normal left ventricular size and normal global left ventricular systolic function. The estimated left ventricular systolic ejection fraction is 60% to 65%. 2. Normal left atrium. Normal right atrium and right ventricle. 3. The atrial septum appeared to be normal without evidence of defect or shunt. 4. Normal aortic root. The ascending aorta is mildly enlarged at 3.8 cm. 5. No pericardial effusion seen. 6. Moderately calcified aortic valve with decrease in leaflet excursion. Mildly calcified mitral annulus with normal anterior mitral valve leaflet motion. Normal tricuspid valve and pulmonic valve. The proximal pulmonary artery branches were not well visualized. 7. The inferior vena cava is dilated, central venous pressure might be elevated. DOPPLER: It detects mild mitral regurgitation, [id number] tricuspid regurgitation. The calculate pulmonary artery systolic pressure varies between 40 to 50 mmHg. Assessment of the left ventricular diastolic function in limited views appeared to be normal. IMPRESSION: 1. Normal global left ventricular systolic function with mild concentric left ventricular hypertrophy. 2. Aortic valve sclerosis with [id number] aortic stenosis, but no aortic regurgitation. 3. Mitral annulus calcification with mild mitral regurgitation. 4. [id number] tricuspid regurgitation with moderate pulmonary hypertension. 5. Global longitudinal strain was calculated at -16.1%. MTDD
[2021-03-20] MEDS: oxyCODONE 5MG TAB PO PRN ×2 (12:02→16:07)
--- NOTE | 2021-03-20 18:15 | IPNPDOC ---
Subjective Date Seen The patient was seen on 03/20/21. Subjective Chief Complaint/HPI Mrs. Solano is a 76 year old female with COPD, chronic back pain from compression fractures, and chronic anemia who presents with worsening back pain and dyspnea. This morning, she still complains of upper back pain that not controlled by current therapy. Nurse noted that patient had not been receiving the PRN oxyIR so will try giving the OxyIR more frequently. Otherwise, I reached out to Pain Management at [phone] who will look into her case tomorrow. They will try to contact the on-service provider for recommendations on pain control. Unfortunately, the PCP would still have to refer patient to Pain Management for patient to follow up with them outpatient. Otherwise, renal function had improved, but potassium is mildly elevated. Gave another dose of Kayexalate. Hemoglobin dropped to 7.1. Discussed blood transfusions with patient and she was agreeable to them. Patient being transfused with 2 units. Will recheck BMP and CBC after transfusion is completed. Objective Physical Examination General Exam: Positive: Alert, Cooperative Eye Exam: Positive: EOMI; Negative: Sclera icteric ENT Exam: Positive: Atraumatic Neck Exam: Positive: Supple Chest Exam: Positive: Clear to auscultation Heart Exam: Positive: Bradycardic, Regular Rhythm Abdomen Exam: Positive: Normal bowel sounds, Soft; Negative: Tenderness Extremity Exam: Positive: Edema (mild bilateral pitting edema) Neuro Exam: Positive: Normal Speech Psych Exam: Positive: Mental status NL, Mood NL Assessment /Plan Assessment Mrs. Solano is a 76 year old female with COPD, chronic back pain from compression fractures, and chronic anemia who presents with worsening back pain and dyspnea. Patient controlled attempted with scheduled acetaminophen, oxyCodone, Lidocaine patch, and PRN OxyIR. Patient has not received PRN OxyIR regularly, so nurse will try to give it more frequently. Otherwise, reached out to pain management at [phone]. They will look into case to help with pain management. Unfortunately, patient will still need referral to pain management. Patient has iron deficiency anemia. Iron 18, TIBC 317, Ferritin 10. Restarted patient on Iron, Vitamin C (to help absorption), and Colace (patient on opioids as well). Occult stool ordered by have not been done yet. Added on MiraLax in case patient becomes constipated from Iron and opioids. Hemoglobin dropped to 7. 1. Discuss blood transfusion and patient is agreeable. Total of 2u pRBC. Bradycardia resolved. Will restart Cardizem at a lower does (blood pressure elevated despite anemia). Echocardiogram demonstrates EF 60 to 65%, Mild to moderate aortic stenosis, moderate pulmonary hypertension. Plan/VTE VTE Prophylaxis Ordered?: Yes Plan 1. Intractable back pain -Secondary to compression fractures -Acetaminophen 1000mg TID, Lidocaine patchx2 OxyContin 10mg BID, and OxyIR 5mg q4h PRN -Nurse will try to give OxyIR more often -Reached out to pain management [phone]. Pending recommendations. May need to call them for recommendations 2. Iron deficiency anemia -MCV lower than her normal. Normally around 100, but on admission it is 87.2 -Iron 18, TIBC 317, Ferritin 10 -Patient will be started on iron, vitamin C, Colace, and Miralax -Patient signed blood consent -Transfused 2u pRBC 3. Bradycardia -Cardizem held -Echocardiogram demonstrates EF 60 to 65%, mild to moderate aortic stenosis, moderate pulmonary hypertension. -Bradycardia resolved. Restarting Cardizem at 120mg BID (previously 240mg BID). Added holding parameters 4. COPD -Continue duonebs and triple therapy (ICS, LABA, LAMA) -Incentive spirometry as tolerated 5. Atrial fibrillation -Restarted Cardizem at a lower dose -Continue Amiodarone -Continue Apixaban 6. Adrenal insufficiency -Continue Hydrocortisone (15 in AM and 10 in PM) 7. DM type 2 -Sliding scale insulin and carbohydrate consistent diet 8. Chronic HFpEF -Appears to be compensated -Added Torsemide as blood pressure is better 9. RSL -Continue ropinirole 10. DVT px -On apixaban Disposition: Pending control of pain (pain management consulted) and stability of H&H. PT following patient, activity limited by pain. VS, I&O, 24H, Eun Vital Signs/I&O Vital Signs Date Time Temp Pulse Resp B/P (MAP) Pulse Ox O2 Delivery O2 Flow Rate FiO2 03/20/21 17:33 97.9 84 19 158/75 98 Room Air 03/20/21 00:00 2.0 I&O- Last 24 Hours up to 6 AM 03/20/21 06:00 Intake Total 540 ml Output Total 200 ml Balance 340 ml Laboratory Data 24H LABS Laboratory Tests 2 03/19/21 20:05: Bedside Glucose (Misc Panel) 168H 03/20/21 04:57: Nucleated Red Blood Cells % (auto) 0.0, Anion Gap 4L, Glomerular Filtration Rate 44.2, Calcium Level 7.3#L 03/20/21 10:51: Methicillin-Resist S.aureus DNA PCR NOT DETECTED 03/20/21 11:42: Bedside Glucose (Misc Panel) 157H 03/20/21 16:53: Bedside Glucose (Misc Panel) 167H CBC/BMP Laboratory Tests 03/20/21 04:57 ALLEGRA WILL DO March 20, 2021 18:14
--- NOTE | 2021-03-20 19:07 | REP ---
INDICATION: rib pain. history of compression fracture and rib fracture. COMPARISON: None. TECHNIQUE: Four views bilateral ribs, frontal view chest. FINDINGS: There are multiple old healed rib fractures bilaterally. No acute fracture is visualized radiographically. There is an old fracture of the proximal left humerus. Heart is slightly enlarged. There is calcification of the thoracic aorta. The lungs show scattered fibrotic change. IMPRESSION: Multiple old bilateral rib fractures. No acute rib fracture identified. <Electronically signed by Ace Lester > 03/20/21 [id number]
[2021-03-20 19:09] LABS: HEMATOCRIT 36.9 % (36.0-47.0); MEAN CORPUSCULAR HEMOGLOBIN 25.5 pg (27.0-33.0); MEAN CORPUSCULAR HGB CONC 29.5 g/dl (32.0-36.5); MEAN CORPUSCULAR VOLUME 86.4 fl (80.0-96.0); PLATELET COUNT, AUTOMATED 590 10^3/uL (150-450); RED BLOOD COUNT 4.27 10^6/uL (4.00-5.40); WHITE BLOOD COUNT 13.3 10^3/uL (4.0-10.0)
[2021-03-20 19:18] LABS: HEMOGLOBIN 10.9 g/dl (12.0-15.5)
[2021-03-20 19:39] LABS: CALCIUM LEVEL 7.9 MG/DL (8.8-10.2); CREATININE FOR GFR 1.08 MG/DL (0.55-1.30); GLOMERULAR FILTRATION RATE 52.4 (>39); POTASSIUM SERUM 4.1 MEQ/L (3.5-5.1)
[2021-03-20] MEDS: HYDROCORTISONE 10 MG TAB PO SCH (21:34)
[2021-03-20] MEDS: **NOTE PATIENT COMMENT** MISC XX SCH (21:35)
[2021-03-20] MEDS: traZODone 50 MG TAB PO SCH (21:35)
[2021-03-21] VITALS: BP 137/72
[2021-03-21 04:00] VITALS: BP 137/76
[2021-03-21] MEDS: oxyCODONE 5MG TAB PO PRN ×4 (04:26→20:44)
[2021-03-21 05:44] LABS: HEMATOCRIT 36.6 % (36.0-47.0); MEAN CORPUSCULAR HEMOGLOBIN 25.9 pg (27.0-33.0); MEAN CORPUSCULAR HGB CONC 30.1 g/dl (32.0-36.5); MEAN CORPUSCULAR VOLUME 86.3 fl (80.0-96.0); PLATELET COUNT, AUTOMATED 574 10^3/uL (150-450); RED BLOOD COUNT 4.24 10^6/uL (4.00-5.40); WHITE BLOOD COUNT 10.8 10^3/uL (4.0-10.0)
[2021-03-21 06:12] LABS: CALCIUM LEVEL 7.5 MG/DL (8.8-10.2); CREATININE FOR GFR 1.02 MG/DL (0.55-1.30); GLOMERULAR FILTRATION RATE 55.9 (>39); POTASSIUM SERUM 3.7 MEQ/L (3.5-5.1)
[2021-03-21] MEDS: TIOTROPIUM INHALER/CAPSULE (SPIRIVA) INH SCH (07:11)
[2021-03-21] MEDS: ADVAIR HFA 230/21MCG INHALER INH SCH ×2 (07:11→19:44)
[2021-03-21] MEDS: HumaLOG INSULIN (NovoLOG) PER UNIT SC SCH ×4 (07:30→20:45)
[2021-03-21 07:43] VITALS: BP 146/69
[2021-03-21] MEDS: HYDROCORTISONE 5MG TABLET PO SCH (08:31)
[2021-03-21] MEDS: LIDOCAINE 5% (LIDODERM) PATCH TD SCH (08:31)
[2021-03-21] MEDS: MIRALAX *UNIT DOSE* 17GM PACKET PO SCH (08:31)
[2021-03-21] MEDS: oxyCODONE 10 MG CR TAB PO SCH (08:32)
[2021-03-21] MEDS: FERROUS GLUCONATE 324 MG TAB PO SCH (08:32)
[2021-03-21] MEDS: APIXABAN 5 MG TAB (ELIQUIS) PO SCH ×2 (08:32→20:45)
[2021-03-21] MEDS: ASCORBIC ACID 500 MG TAB PO SCH (08:32)
[2021-03-21] MEDS: ACETAMINOPHEN 500 MG TAB PO SCH ×3 (08:32→20:42)
[2021-03-21] MEDS: busPIRone 5 MG TAB PO SCH ×2 (08:32→20:41)
[2021-03-21] MEDS: TORSEMIDE 20 MG TAB PO SCH ×2 (08:32→20:43)
[2021-03-21] MEDS: rOPINIRole 1MG TAB PO SCH ×2 (08:32→20:41)
[2021-03-21] MEDS: DOCUSATE SODIUM 100MG CAPSULE PO SCH ×2 (08:33→20:42)
[2021-03-21] MEDS: FLUTICASONE PROP 0.05% NASAL SPRAY 16 GM (FLONASE) NARES SCH (08:36)
[2021-03-21 12:00] VITALS: BP 139/65
--- NOTE | 2021-03-21 12:12 | IPNPDOC ---
Date Seen The patient was seen on 03/21/21. Progress Note SUBJECTIVE: 76 yo F with hx COPD, chronic back pain 2/2 compression fx, chronic iron def anemia, presented to hospital with worsening back pain and shortness of breath. Pain Management clinic was contacted at [phone], awaiting call back and recommendations. Patient continues to have significant back pain, limiting her mobility and performance in physical therapy. Patient will require outp atient referral to Pain Management from PCP. Patient's hgb improved s/p 2 units transfused, remains stable for 48 hours. OBJECTIVE PHYSICAL EXAMINATION: VITAL SIGNS: please see below General: NAD, comfortable HEENT: PERRLA, EOMI, sclerae clear Neck: supple, normal ROM, no JVD Respiratory: lungs CTAB, no wheeze, no rales, no crackles CVS: RRR, normal S1, S2, no murmurs Abdo: soft, no masses, no hepatosplenomegaly, BS+, no rebound tenderness Extremities: no edema, pulses 2+ MSK: point tenderness along thoracic spine Neuro: no focal neuro deficits, moving all 4 extremities, CN2-12 intact. Stren gth 5/5 in all 4 extremities. No nystagmus. Psych: calm, cooperative, AAO x 3 LABORATORY DATA, IMAGING STUDIES, MICROBIOLOGY: Please see below. Echocardiogram: 2D Echocardiogram (03/18/21): 1. Normal global left ventricular systolic function with mild concentric left ventricular hypertrophy. 2. Aortic valve sclerosis with [id number] aortic stenosis, but no aortic regurgitation. 3. Mitral annulus calcification with mild mitral regurgitation. 4. Ygzq-lv-tqhnndyz tricuspid regurgitation with moderate pulmonary hypertension. 5. Global longitudinal strain was calculated at -16.1%. DVT prophylaxis ordered?: lovenox ASSESSMENT AND PLAN: 1. Intractable back pain -Secondary to compression fractures -Acetaminophen 1000mg TID, Lidocaine patchx2 OxyContin 10mg BID, and OxyIR 5mg q4h PRN -Reached out to pain management [phone], recommending to DC oxycontin 10 mg BID - change OxyIR 5 mg to 1-2 tab q6h prn 2. Iron deficiency anemia -MCV lower than her normal. Normally around 100, but on admission it is 87.2 -Iron 18, TIBC 317, Ferritin 10 -Patient wasstarted on iron, vitamin C, Colace, and Miralax - s/p 2 units prbc - Hgb stable at 11.0. 3. Bradycardia -Cardizem held -Echocardiogram demonstrates EF 60 to 65%, mild to moderate aortic stenosis, moderate pulmonary hypertension. -Bradycardia resolved. Restarting Cardizem at 120mg BID (previously 240mg BID). Added holding parameters 4. COPD -Continue duonebs and triple therapy (ICS, LABA, LAMA) -Incentive spirometry as tolerated 5. Atrial fibrillation -Restarted Cardizem at a lower dose -Continue Amiodarone -Continue Apixaban 6. Adrenal insufficiency -Continue Hydrocortisone (15 in AM and 10 in PM) 7. DM type 2 -Sliding scale insulin and carbohydrate consistent diet 8. Chronic HFpEF -Appears to be compensated -Added Torsemide as blood pressure is better - echo review above 9. RSL -Continue ropinirole 10. DVT px -On apixaban Disposition: Pending control of pain (pain management consulted). H/h is stable. PT following patient, activity limited by pain. VS, [facility]&O, [facility] Vital Signs/I&O Vital Signs Date Time Temp Pulse Resp B/P (MAP) Pulse Ox O2 Delivery O2 Flow Rate FiO2 03/21/21 08:32 81 146/69 03/21/21 08:32 18 Room Air 03/21/21 07:43 97.2 93 03/20/21 00:00 2.0 I&O- Last 24 Hours up to 6 AM 03/21/21 06:00 Intake Total 1760 ml Output Total 200 ml Balance 1560 ml Laboratory Data 24H LABS Laboratory Tests 2 03/20/21 16:53: Bedside Glucose (Misc Panel) 167H 03/20/21 18:53: Nucleated Red Blood Cells % (auto) 0.2H, Anion Gap 6L, Glomerular Filtration Rate 52.4, Calcium Level 7.9L 03/20/21 20:07: Bedside Glucose (Misc Panel) 82L 03/21/21 05:25: Nucleated Red Blood Cells % (auto) 0.0, Anion Gap 5L, Glomerular Filtration Rate 55.9, Calcium Level 7.5L 03/21/21 11:16: Bedside Glucose (Misc Panel) 250H CBC/BMP Laboratory Tests 03/20/21 18:53 03/21/21 05:25 RADHA DURBIN MD March 21, 2021 12:12
[2021-03-21 20:00] VITALS: BP 121/63
[2021-03-21] MEDS: HYDROCORTISONE 10 MG TAB PO SCH (20:41)
[2021-03-21] MEDS: traZODone 50 MG TAB PO SCH (20:41)
[2021-03-21] MEDS: **NOTE PATIENT COMMENT** MISC XX SCH (20:46)
[2021-03-22 01:07] VITALS: BP 133/64
[2021-03-22] MEDS ORDERED: oxyCODONE 5MG TAB PO PRN (03:20)
[2021-03-22] MEDS: oxyCODONE 5MG TAB PO PRN (03:34)
[2021-03-22 06:00] VITALS: BP 129/65
[2021-03-22 06:35] LABS: HEMATOCRIT 34.8 % (36.0-47.0); HEMOGLOBIN 10.5 g/dl (12.0-15.5); MEAN CORPUSCULAR HEMOGLOBIN 25.9 pg (27.0-33.0); MEAN CORPUSCULAR HGB CONC 30.2 g/dl (32.0-36.5); MEAN CORPUSCULAR VOLUME 85.9 fl (80.0-96.0); PLATELET COUNT, AUTOMATED 576 10^3/uL (150-450); RED BLOOD COUNT 4.05 10^6/uL (4.00-5.40); WHITE BLOOD COUNT 10.7 10^3/uL (4.0-10.0)
[2021-03-22 06:59] LABS: BLOOD UREA NITROGEN 23 MG/DL (7-18); CALCIUM LEVEL 7.7 MG/DL (8.8-10.2); CARBON DIOXIDE LEVEL 27 MEQ/L (21-32); CHLORIDE LEVEL 103 MEQ/L (98-107); CREATININE FOR GFR 0.84 MG/DL (0.55-1.30); GLOMERULAR FILTRATION RATE > 60.0 (>39); GLUCOSE, FASTING 184 MG/DL (70-100); SODIUM LEVEL 137 MEQ/L (136-145)
[2021-03-22] MEDS: TIOTROPIUM INHALER/CAPSULE (SPIRIVA) INH SCH (07:40)
[2021-03-22] MEDS: ADVAIR HFA 230/21MCG INHALER INH SCH (07:40)
[2021-03-22] MEDS: HumaLOG INSULIN (NovoLOG) PER UNIT SC SCH ×2 (08:39→12:18)
[2021-03-22] MEDS: APIXABAN 5 MG TAB (ELIQUIS) PO SCH (08:40)
[2021-03-22] MEDS: DOCUSATE SODIUM 100MG CAPSULE PO SCH (08:40)
[2021-03-22] MEDS: rOPINIRole 1MG TAB PO SCH (08:40)
[2021-03-22] MEDS: LIDOCAINE 5% (LIDODERM) PATCH TD SCH (08:40)
[2021-03-22 08:41] VITALS: BP 129/65
[2021-03-22] MEDS: AMIODARONE 200 MG TAB (PACERONE) PO SCH (08:41)
[2021-03-22] MEDS: FERROUS GLUCONATE 324 MG TAB PO SCH (08:41)
[2021-03-22] MEDS: MIRALAX *UNIT DOSE* 17GM PACKET PO SCH (08:41)
[2021-03-22] MEDS: ASCORBIC ACID 500 MG TAB PO SCH (08:41)
[2021-03-22] MEDS: TORSEMIDE 20 MG TAB PO SCH (08:41)
[2021-03-22] MEDS: HYDROCORTISONE 5MG TABLET PO SCH (08:42)
[2021-03-22] MEDS: ACETAMINOPHEN 500 MG TAB PO SCH (08:42)
[2021-03-22] MEDS: busPIRone 5 MG TAB PO SCH (08:43)
[2021-03-22] MEDS: FLUTICASONE PROP 0.05% NASAL SPRAY 16 GM (FLONASE) NARES SCH (08:43)
--- NOTE | 2021-03-22 11:20 | DS.PDOC ---
Discharge Summary General Date of Admission March 18, 2021 at 07:30 Date of Discharge 03/22/21 Discharge Summary PROCEDURES PERFORMED DURING STAY: [None]. ADMITTING DIAGNOSES: 1. . DISCHARGE DIAGNOSES: 1. . COMPLICATIONS/CHIEF COMPLAINT: Acute Anemia,Compression Fracture Of Thoracic Vert. HISTORY OF PRESENT ILLNESS: . HOSPITAL COURSE: . DISCHARGE MEDICATIONS: Please see below. ALLERGIES: Please see below. PHYSICAL EXAMINATION ON DISCHARGE: VITAL SIGNS: Please see below. GENERAL: HEENT: NECK: CARDIOVASCULAR EXAMINATION: RESPIRATORY EXAMINATION: ABDOMINAL EXAMINATION: EXTREMITIES: SKIN: NEUROLOGICAL EXAMINATION: PSYCHIATRIC EXAMINATION: LABORATORY DATA: Please see below. IMAGING: PROGNOSIS: ACTIVITY: [As tolerated]. DIET: DISCHARGE PLAN: DISPOSITION: . DISCHARGE INSTRUCTIONS: 1. . ITEMS TO FOLLOWUP ON ON OUTPATIENT: 1. . DISCHARGE CONDITION: [Stable]. TIME SPENT ON DISCHARGE: Greater than minutes. Vital Signs/I&Os Vital Signs Date Time Temp Pulse Resp B/P (MAP) Pulse Ox O2 Delivery O2 Flow Rate FiO2 03/22/21 09:55 16 03/22/21 08:41 83 129/65 03/22/21 06:00 98.4 95 Room Air 03/20/21 00:00 2.0 I&O- Last 24 Hours up to 6 AM 03/22/21 06:00 Intake Total 1650 ml Output Total 900 ml Balance 750 ml Laboratory Data Labs 24H Laboratory Tests 2 03/21/21 16:04: Bedside Glucose (Misc Panel) 300H 03/21/21 20:35: Bedside Glucose (Misc Panel) 78L 03/22/21 05:39: Nucleated Red Blood Cells % (auto) 0.0, Anion Gap 7L, Glomerular Filtration Rate > 60.0, Calcium Level 7.7L CBC/BMP Laboratory Tests 03/22/21 05:39 FSBS Laboratory Tests Test 03/21/21 16:04 03/21/21 20:35 Range/Units Bedside Glucose (Misc Panel) 300 78 83-110 MG/DL Discharge Medications Scheduled Alendronate Sodium (Alendronate Sodium) 70 Mg Tablet, 70 MG PO QWEEK, (Reported) SATURDAY Amiodarone HCl (Amiodarone HCl) 200 Mg Tablet, 200 MG PO 3XW, (Reported) SATURDAY, SATURDAY AND SATURDAY Apixaban (Eliquis) 5 Mg Tablet, 5 MG PO BID, (Reported) Buspirone HCl (Buspirone HCl) 5 Mg Tablet, 5 MG PO BID, (Reported) Diltiazem HCl (Diltiazem 24Hr ER) 240 Mg Cap.er.24h, 240 MG PO BID, (Reported) Fluticasone Propionate (Fluticasone Propionate) 16 Gm [place].susp, 2 SPRAYS NARES DAILY, (Reported) Fluticasone/Umeclidin/Vilanter (Trelegy Ellipta 100-62.5-25) 1 Each Blst.w.dev, 1 PUFF INH DAILY, (Reported) Hydrocortisone (Hydrocortisone) 5 Mg Tablet, 15 MG PO QAM, (Reported) Hydrocortisone (Hydrocortisone) 5 Mg Tablet, 10 MG PO QHS, (Reported) Metformin HCl (Metformin HCl) 1,000 Mg Tablet, 1,000 MG PO BID, (Reported) Ropinirole HCl (Ropinirole HCl) 1 Mg Tablet, 1 MG PO BID, (Reported) Torsemide (Torsemide) 20 Mg Tablet, 20 MG PO BID, (Reported) Trazodone HCl (Trazodone HCl) 50 Mg Tablet, 50 MG PO QHS, (Reported) Scheduled PRN Nitroglycerin (Nitrostat) 0.4 Mg Tab.subl, 0.4 MG SL Q5MP PRN for CHEST PAIN, (Reported) Allergies Coded Allergies: propoxyphene (Verified Allergy, Intermediate, hives, 08/24/20) RADHA DURBIN MD March 22, 2021 11:20
[2021-03-22] MEDS ORDERED: ASCO50TA PO (11:34)
[2021-03-22] MEDS ORDERED: VENTAER INH (11:34)
[2021-03-22] MEDS ORDERED: FERR32TA PO (11:34)
[2021-03-22] MEDS ORDERED: VOLT1GEL15 TOP (11:34)
[2021-03-22] MEDS ORDERED: CARD120C3 PO (11:34)
[2021-03-22] MEDS ORDERED: ACET-683 PO (11:34)
[2021-03-22] MEDS ORDERED: OXYC-517 PO (11:34)
[2021-03-22 14:00] VITALS: BP 116/49
== END 2021-03-22 14:20 | disposition home health service (06) | DRG 560 ==
LOC: M ED 02:41 → EEVIPCON 07:30 → M ED INP 07:30 → ENRESERV 08:28 → M PCU 09:18 → M MSPAV 03-22 01:05
PROVIDERS: ADMIT Internal Medicine; ATTEND Family Medicine
DX: M84.48XS Pathological fracture, other site, sequela (principal); I50.32 Chronic diastolic (congestive) heart failure; E27.40 Unspecified adrenocortical insufficiency; M54.9 Dorsalgia, unspecified; Z79.899 Other long term (current) drug therapy; Z88.8 Allergy status to other drugs, medicaments and biological substances; J44.9 Chronic obstructive pulmonary disease, unspecified; D64.9 Anemia, unspecified; Z86.73 Personal history of transient ischemic attack (TIA), and cerebral infarction without residual deficits; I48.91 Unspecified atrial fibrillation; M19.90 Unspecified osteoarthritis, unspecified site; F41.9 Anxiety disorder, unspecified; Z98.41 Cataract extraction status, right eye; Z98.42 Cataract extraction status, left eye; Z87.891 Personal history of nicotine dependence

== ENCOUNTER 2021-04-06 11:23 | Inpatient (IN) | payer MEDICARE, OTHER ==
[~2021-04-06] VITALS: Ht 154.9 cm; Wt 60.0 kg
[~2021-04-06 11:23] MED LIST changes: +ASCO50TA PO; +FERR32TA PO; +HYDR-4467 PO; +OXYC-517 PO; +TORS20TA2 PO; +VOLT1GEL15 TOP
[2021-04-06] MEDS ORDERED: MORPHINE 4 MG/ML 1ML VIAL/SYRINGE (J2270) IV ONE (12:15)
[2021-04-06] MEDS ORDERED: NS 500 ML IV ONE (12:15)
[2021-04-06] MEDS ORDERED: ONDANSETRON 4MG/2ML VIAL IV ONE (12:15)
--- NOTE | 2021-04-06 12:47 | REP ---
INDICATION: Abdominal Pain COMPARISON: Chest x-ray 03/20/2021 TECHNIQUE: Upright view of the chest with supine and upright views of the abdomen and pelvis. FINDINGS: Frontal upright view of the chest demonstrates acute on chronic changes along with few scattered pulmonary nodule suggested. Bowel gas pattern is nonspecific although ileus and acute enterocolitis cannot be excluded. No obvious obstruction or perforation. Skeletal structures demonstrate osteopenia and degenerative changes along with vascular calcifications as well as old left shoulder and rib fractures.. IMPRESSION: 1. Suspected acute on chronic pulmonary parenchymal changes. 2. Bowel gas pattern suggests ileus and possible underlying enterocolitis cannot be excluded. <Electronically signed by Anastacio Ritchie > 04/06/21 [id number]
[2021-04-06 12:56] LABS: BASO # 0.1 10^3/uL (0.0-0.2); BASO % 0.8 % (0.0-1.0); EOS # 0.1 10^3/uL (0.0-0.5); EOS % 0.7 % (0.0-3.0); HEMATOCRIT 40.6 % (36.0-47.0); HEMOGLOBIN 11.8 g/dl (12.0-15.5); LYMPH # 1.2 10^3/uL (1.5-5.0); LYMPH % 9.3 % (24.0-44.0); MEAN CORPUSCULAR HEMOGLOBIN 25.7 pg (27.0-33.0); MEAN CORPUSCULAR HGB CONC 29.1 g/dl (32.0-36.5); MEAN CORPUSCULAR VOLUME 88.5 fl (80.0-96.0); MONO # 1.3 10^3/uL (0.0-0.8); MONO % 9.8 % (2.0-8.0); NEUTROPHILS % 78.7 % (36.0-66.0); PLATELET COUNT, AUTOMATED 761 10^3/uL (150-450); RED BLOOD COUNT 4.59 10^6/uL (4.00-5.40); WHITE BLOOD COUNT 12.8 10^3/uL (4.0-10.0)
[2021-04-06 13:15] LABS: ALBUMIN 2.7 GM/DL (3.2-5.2); ALT/SGPT 8 U/L (12-78); BILIRUBIN,DIRECT < 0.1 MG/DL (0.0-0.2); BILIRUBIN,TOTAL 0.4 MG/DL (0.2-1.0); BLOOD UREA NITROGEN 25 MG/DL (7-18); CARBON DIOXIDE LEVEL 28 MEQ/L (21-32); CHLORIDE LEVEL 105 MEQ/L (98-107); CK-MB VALUE MASS < 1.0 NG/ML (<3.6); CPK CREATINE PHOSPHOKINASE 30 U/L (26-192); CREATININE FOR GFR 0.93 MG/DL (0.55-1.30); GLOMERULAR FILTRATION RATE > 60.0 (>39); GLUCOSE, FASTING 132 MG/DL (70-100); LIPASE 20 U/L (73-393); MB/CK RELATIVE INDEX 3.33 (< OR =4); POTASSIUM SERUM 4.3 MEQ/L (3.5-5.1); SODIUM LEVEL 140 MEQ/L (136-145); TOTAL PROTEIN 6.5 GM/DL (6.4-8.2); TROPONIN I < 0.02 NG/ML (< 0.10)
[2021-04-06] MEDS ORDERED: DEXTROSE 50% 50 ML SYRINGE IV PRN (15:45)
[2021-04-06] MEDS ORDERED: GLUCOSE 4GM CHEW TABLET PO PRN (15:45)
[2021-04-06] MEDS ORDERED: GLUCAGON INJ 1MG VIAL SC PRN (15:45)
[2021-04-06] MEDS ORDERED: FERR324T21 PO (16:00)
[2021-04-06] MEDS ORDERED: IPRA0.00 INH (16:00)
[2021-04-06] MEDS ORDERED: VENTAER INH (16:00)
[2021-04-06] MEDS ORDERED: DILT120C89 PO (16:00)
[2021-04-06] MEDS ORDERED: VOLT1GEL15 TOP (16:00)
[2021-04-06] MEDS ORDERED: ACET-683 PO (16:00)
[2021-04-06] MEDS ORDERED: OXYC-517 PO (16:00)
[2021-04-06] MEDS ORDERED: OMEP-221 PO (16:00)
[2021-04-06] MEDS ORDERED: C 50TAB PO (16:00)
[2021-04-06] MEDS ORDERED: GASTROGRAFIN SOLUTION 30ML (Q9963) As Ordered ONE (16:07)
[2021-04-06] MEDS: GASTROGRAFIN SOLUTION 30ML PO SCH ×2 (16:14→16:51)
[2021-04-06] MEDS ORDERED: ALBUTEROL 90 MCG/ACT 8GM HFA INHALER INH PRN (16:30)
[2021-04-06] MEDS ORDERED: IPRATROPIUM 0.5MG/ALBUTEROL 2.5MG INH SOL UD 3ML (DUONEB) INH PRN (16:30)
[2021-04-06] MEDS: HumaLOG INSULIN (NovoLOG) PER UNIT SC SCH ×2 (17:30→21:00)
[2021-04-06] MEDS ORDERED: ISOVUE-370 76% 100ML VIAL As Ordered ONE (17:45)
[2021-04-06] MEDS ORDERED: ASCORBIC ACID 500 MG TAB PO ONE (18:00)
[2021-04-06] MEDS ORDERED: MORPHINE 2 MG/ML 1ML VIAL (J2270) IV ONE (18:00)
[2021-04-06] MEDS ORDERED: PERCOCET 5MG/325MG TAB PO ONE (18:00)
[2021-04-06] MEDS ORDERED: rOPINIRole 1MG TAB PO ONE (18:00)
[2021-04-06] MEDS ORDERED: KETOROLAC 30 MG/ML 1ML VIAL IV ONE (18:00)
[2021-04-06 18:15] VITALS: BP 128/55
--- NOTE | 2021-04-06 18:20 | HPEPDOC ---
[facility] Medical History & Physical Date of Admission April 06, 2021 Date of Service: April 06, 2021 History and Physical CHIEF COMPLAINT: Weakness and diarrhea HISTORY OF PRESENT ILLNESS: 76-year-old female with history of COPD, not on home oxygen, chronic back pain with thoracic fracture. Iron deficiency anemia, chronic atrial fibrillation on amiodarone and picks up and adrenal insufficiency, type 2 diabetes, diastolic co ngestive heart failure, restless leg syndrome, recently discharged 03/22/2021 when she was treated for intractable back pain due to compression fracture and anemia status post 2 units RBC transfusion and discharge on iron and vitamin C. According to the who provides most of the histories and she's been discharge. Physical therapy has come once on Saturday and usually comes twice a week. Works with her about 15 minutes a day at home and home care nurse it visited twice per week. Patient has had increasing generalized weakness with decreased appetite. She eats like a bird for the past 4 days but with no documented weight loss. Patient has been having 4-5 loose bowel movements. He even at nighttime, waking the patient up watery, nonbloody, non-mucousy without fever, chills, abdominal pain, nausea or vomiting. has given her Lomotil today and has not had a bowel movement. Patient is unable to stand up and her walker and pull herself up. her has been doing everything for her even helps her get dressed up and help with toilet training since she has been unable to do activities of daily living. He's decided to bring her to the emergency room for further evaluation and possible subacute rehabilitation at [facility]. She otherwise denies any fever, chills, documented weight gain, weight loss, nausea, vomiting, abdominal pain, shortness of breath is chronic, unchanged. She denies chest pain, pressure, tightness, lightheadedness, dizziness, palpitations, polyuria, polydipsia, dysphasia, odynophagia, dysuria, urgency, frequency, flank pain. She complains of bilateral lower extremity weakness and chronic paresthesias especially of the right hand which feels better when she wears Winter gloves. Hospitalist was asked to admit the patient for debility, unable to perform activities of daily living at home, persistent low back pain and evaluation of diarrhea PAST MEDICAL HISTORY: Mild to moderate aortic stenosis, diastolic congestive heart failure, ejection fraction of 60-65%, mild to moderate tricuspid regurgitation, moderate pulmonary hypertension, cardiomegaly, COPD, not oxygen dependent, chronic low back pain with compression fractures. Iron deficiency anemia, received 2 units of RBC transfusion March 2021. 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 Chronic T3 and T7 compression fractures PAST SURGICAL HISTORY: , Bilateral cataract surgery, left breast biopsy, hysterectomy, cervical and t horacic spine surgery SOCIAL HISTORY: Last drink was 40 years ago. Prior smoker. No recreational drug use. Lives with her at home. Patient is a full code. and patient up in for 59 years. Retired FAMILY HISTORY: . Father diabetes. Mother COPD ALLERGIES: Please see below. REVIEW OF SYSTEMS: 10 point review of systems negative aside from positive findings in HPI HOME MEDICATIONS: Please see below. PHYSICAL EXAMINATION: VITAL SIGNS: See below GENERAL APPEARANCE: Appears older than her stated age. No respiratory distress. Sitting on a stretcher at 45 angle. Head of bed elevation, no use of respiratory accessory muscles able to complete her sentences without conversat ional dyspnea HEENT: No JVD, thyromegaly, cervical lymphadenopathy. Dry mucous membranes. No carotid bruit or stridor. No tracheal deviation. No use of respiratory accessory muscles CARDIOVASCULAR: S1, S2. Systolic ejection murmur at the apex, 2 out of 6 radiating to the carotids. Slightly displaced point of maximal impulse. Regular rate, rhythm. No carotid bruit LUNGS: Diminished. No wheezing or rales. Air entry is equal ABDOMEN: Positive bowel sounds, soft, nontender, nondistended. No rebound or guarding EXTREMITIES: No cyanosis, clubbing, trace lower extremity edema bilaterally LABORATORY DATA: See below. IMAGING: See below MICROBIOLOGY: Please see below. ASSESSMENT: 76-year-old female with history of COPD, not on home oxygen, chronic back pain with thoracic fracture. Iron deficiency anemia, chronic atrial fibrillation on amiodarone and picks up and adrenal insufficiency, type 2 diabetes, diastolic congestive heart failure, restless leg syndrome, recently discharged 03/22/2021 when she was treated for intractable back pain due to compression fracture and anemia status post 2 units RBC transfusion and discharge on iron and vitamin C. According to the who provides most of the histories and she's been discharge. Physical therapy has come once on Saturday and usually comes twice a week. Works with her about 15 minutes a day at home and home care nurse it visited twice per week. Patient has had increasing generalized weakness with decreased appetite. She eats like a bird for the past 4 days but with no documented weight loss. Patient has been having 4-5 loose bowel movements. He even at nighttime, waking the patient up watery, nonbloody, non-mucousy without fever, chills, abdominal pain, nausea or vomiting. Patient is unable to stand up and her walker and pull herself up. her has been doing everything for her even helps her get dressed up and help with toilet training since she has been unable to do activities of daily living. He's decided to bring her to the emergency room for further evaluation and possible subacute rehabilitation at [facility]. She otherwise denies any fever, chills, documented weight gain, weight loss, nausea, vomiting, abdominal pain, shortness of breath is chronic, unchanged. She denies chest pain, pressure, tightness, lightheadedness, dizziness, palpitations, polyuria, polydipsia, dysphasia, odynophagia, dysuria, urgency, frequency, flank pain. She complains of bilateral lower extremity weakness and chronic paresthesias especially of the right hand which feels better when she wears Winter gloves. Hospitalist was asked to admit the patient for debility, unable to perform activities of daily living at home, persistent low back pain and evaluation of diarrhea. Chronic T3 and T7 compression fracturechronic back pain Deconditioning/debility, unable to perform activities of daily living Patient complains of lumbar radiculopathy. Will obtain an MRI of the lumbar spine. Activity as tolerated. Fall precautions and assisted ambulation only. Patient's and the patient are requesting subacute rehabilitation placement and [facility] if possible. They are declining [facility] patient family services will be consulted to assist in placement Diarrhea -Patient has had no weight loss, fever, chills, obtain CT abdomen and pelvis to rule out colitis. Obtain GI panel, and C. difficile. Patient has not been on any bowel regimen at home. If negative findings for acute infectious diarrhea. Patient may be given Lomotil as needed. History of CVA and TIA -Resumed on home medications Diastolic congestive heart failure with preserved ejection fraction, compensated -In light of recent diarrhea. We will hold the patient's diuretics today. If she has no other episodes of diarrhea and euvolemic. Patient may be restarted back on her diuretics depending on her clinical volume status. Will need to monitor strict I's and O's, daily weights. Chronic atrial fibrillation -Rate controlled and currently in sinus rhythm may continue on amiodarone and her chronic anticoagulant History of CVA/TIA -On oral anticoagulant.ARU consulted COPD, not oxygen or steroid dependent -Resume her bronchodilators Adrenal insufficiency -Resumed hydrocortisone History of urine retention -No acute issues. Per the Iron deficiency anemia -No acute indication for RBC transfusion. She has received 2 units during the previous admission Moderate pulmonary hypertension -Complicating her care with elevated brain iterative peptide on routine lab test Mild to moderate aortic stenosis -Avoid over diuresis Mild to moderate tricuspid regurgitation -Complicating her care CODE STATUS full code Diet 2 g sodium diet Healthcare proxy is her Vital Signs Vital Signs Date Time Temp Pulse Resp B/P (MAP) Pulse Ox O2 Delivery O2 Flow Rate FiO2 04/06/21 17:00 57 18 127/60 (82) 98 Nasal Cannula 2.0 04/06/21 12:57 99.9 Laboratory Data Labs 24H Laboratory Tests 2 04/06/21 12:03: Immature Granulocyte % (Auto) 0.7, Neutrophils (%) (Auto) 78.7H, Lymphocytes (%) (Auto) 9.3L, Monocytes (%) (Auto) 9.8H, Eosinophils (%) (Auto) 0.7, Basophils (%) (Auto) 0.8, Neutrophils # (Auto) 10.0H, Lymphocytes # (Auto) 1.2L, Monocytes # (Auto) 1.3H, Eosinophils # (Auto) 0.1, Basophils # (Auto) 0.1, Nucleated Red Blood Cells % (auto) 0.0, Anion Gap 7L, Glomerular Filtration Rate > 60.0, Calcium Level 8.0L, Total Bilirubin 0.4, Direct Bilirubin < 0.1, Aspartate Amino Transf (AST/SGOT) 8, Alanine Aminotransferase (ALT/SGPT) 8L, Alkaline Phosphatase 173H, Total Creatine Kinase 30, Creatine Kinase MB < 1.0, Creatine Kinase MB Relative Index 3.33, Troponin I < 0.02, ZS-[id number]-P-Type Natriuretic Peptide 1274H, Total Protein 6.5, Albumin 2.7L, Albumin/Globulin Ratio 0.7L, Lipase 20L 04/06/21 16:10: Erythrocyte Sedimentation Rate 20, Lactic Acid Level 0.8, C-Reactive Protein, Quantitative 4.78H CBC/BMP Laboratory Tests 04/06/21 12:03 Microbiology Microbiology 04/06/21 Respiratory Virus Panel (PCR) ([facility]) - Final, Complete Home Medications Scheduled Alendronate Sodium (Alendronate Sodium) 70 Mg Tablet, 70 MG PO QWEEK SATURDAY Amiodarone HCl (Amiodarone HCl) 200 Mg Tablet, 200 MG PO 3XW SATURDAY, SATURDAY AND SATURDAY Apixaban (Eliquis) 5 Mg Tablet, 5 MG PO BID Ascorbic Acid (Vitamin C) 500 Mg Tablet, 500 MG PO DAILY Buspirone HCl (Buspirone HCl) 5 Mg Tablet, 5 MG PO BID Ferrous Gluconate (Ferrous Gluconate) 324 Mg Tablet, 324 MG PO DAILY Fluticasone Propionate (Fluticasone Propionate) 16 Gm Elton.susp, 2 SPRAYS NARES DAILY Fluticasone/Umeclidin/Vilanter (Trelegy Ellipta 100-62.5-25) 1 Each Blst.w.dev, 1 PUFF INH DAILY Hydrocortisone (Hydrocortisone) 5 Mg Tablet, 15 MG PO QAM Hydrocortisone (Hydrocortisone) 5 Mg Tablet, 10 MG PO QHS Metformin HCl (Metformin HCl) 1,000 Mg Tablet, 1,000 MG PO BID Omeprazole (Omeprazole) 40 Mg Capsule.dr, 40 MG PO DAILY Ropinirole HCl (Ropinirole HCl) 1 Mg Tablet, 1 MG PO BID DINNER & BEDTIME Torsemide (Torsemide) 20 Mg Tablet, 40 MG PO BID Trazodone HCl (Trazodone HCl) 50 Mg Tablet, 100 MG PO QHS dilTIAZem HCl (Diltiazem 24Hr Cd) 120 Mg Cap.er.24h, 120 MG PO BID Scheduled PRN Acetaminophen (Acetaminophen) 500 Mg Tablet, 500 MG PO Q4H PRN for PAIN Albuterol Sulfate (Ventolin Hfa) 18 Gm Hfa.aer.ad, 2 PUFF INH QID PRN for SHORTNESS OF BREATH Diclofenac Sodium (Voltaren) 100 Gm Gel..gram., 4 GRAM TOP QID PRN for PAIN APPLY TO PAINFUL AREAS Ipratropium/Albuterol Sulfate (Iprat-Albut 0.5-3(2.5) mg/3 ml) 3 Ml Ampul.neb, 3 ML INH Q4H PRN for SHORTNESS OF BREATH Nitroglycerin (Nitrostat) 0.4 Mg Tab.subl, 0.4 MG SL NITRO PRN for CHEST PAIN Oxycodone HCl (Oxycodone HCl) 5 Mg Tablet, 5 MG PO QID PRN for PAIN Allergies Coded Allergies: propoxyphene (Verified Allergy, Intermediate, hives, 08/24/20) A-FIB/CHADSVASC A-FIB History Current/History of A-Fib/PAF?: Yes Current PO Anticoag Therapy: Yes Age/Risk Factor Scoring CHADSVASC: CHADSVASC Response (Comments) Value Age Risk Factor Age >/= 75 years old 2 Gender Risk Factor Female 1 Hx of CHF Yes 1 Hx of HTN Yes 1 Hx of Stroke/TIA/or VTE Yes 2 Hx of Diabetes No 0 Hx of Vascular Disease No 0 Total 7 Treatment Treatment ordered: Apixaban MARCELINO GLEASON MD April 06, 2021 18:20
--- NOTE | 2021-04-06 18:26 | REPVR ---
PROCEDURE INFORMATION: Exam: CT Abdomen And Pelvis Without Contrast Exam date and time: 04/06/2021 6:00 PM Age: 76 years old Clinical indication: Abdominal pain; Additional info: Po contrast only abd pain/diarrhea TECHNIQUE: Imaging protocol: Computed tomography of the abdomen and pelvis without contrast. Radiation optimization: All CT scans at this facility use at least one of these dose optimization techniques: automated exposure control; mA and/or kV adjustment per patient size (includes targeted exams where dose is matched to clinical indication); or iterative reconstruction. COMPARISON: CT ABD PELVIS W/O CONTRAST 08/07/2020 3:24 PM FINDINGS: Lungs: Bibasilar infiltrates with air bronchograms. Clinical correlation to exclude infection suggested. Liver: Normal. No mass. Gallbladder and bile ducts: There are gallstones present. No evidence of cholecystitis demonstrated. Pancreas: There is diffuse pancreatic atrophy. Spleen: Normal. No splenomegaly. Adrenal glands: Normal. No mass. Kidneys and ureters: Right-sided mild to mild hydroureteronephrosis without obstructing etiology. Stomach and bowel: Moderate diverticulosis is present in the distal colon. Subtle pericolonic inflammatory changes demonstrated in the mid sigmoid colon, findings which may suggest the presence of mild uncomplicated diverticulitis. Increased fecal retention left hemicolon may signify the presence of constipation. Appendix: No evidence of appendicitis. Intraperitoneal space: Unremarkable. No free air. No significant fluid collection. Vasculature: There is moderate atherosclerotic calcification of the coronary arteries. Lymph nodes: Unremarkable. No enlarged lymph nodes. Urinary bladder: Unremarkable as visualized. Reproductive: There has been a hysterectomy. Bones/joints: Healed bilateral rib fractures demonstrated . Appearance of L3 is stable since the prior study of 2017 although the compression deformity at L1 represents an interval change. Moderate central spinal stenosis L1-L2, moderate to severe central spinal stenosis L2-L3, severe central spinal stenosis L3-L4 and L4-L5. Soft tissues: There is a small umbilical hernia. There is no evidence of incarceration. Other findings: Osteoporosis. IMPRESSION: 1. Appearance of L3 is stable since the prior study of 2017 although the compression deformity at L1 represents an interval change. 2. There are gallstones present. No evidence of cholecystitis demonstrated. 3. There is diffuse pancreatic atrophy. 4. There has been a hysterectomy. 5. Moderate diverticulosis is present in the distal colon. Subtle pericolonic inflammatory changes demonstrated in the mid sigmoid colon, findings which may suggest the presence of mild uncomplicated diverticulitis. 6. Right-sided mild to mild hydroureteronephrosis without obstructing etiology. 7. Increased fecal retention left hemicolon may signify the presence of constipation. Electronically signed by: Epifanio Petersen On 04/06/2021 18:26:23 PM
[2021-04-06] MEDS: PERCOCET 5MG/325MG TAB PO PRN (18:35)
--- NOTE | 2021-04-06 18:36 | REPVR ---
PROCEDURE INFORMATION: Exam: CT Chest Without Contrast; Diagnostic Exam date and time: 04/06/2021 6:00 PM Age: 76 years old Clinical indication: Shortness of breath; Additional info: SOB TECHNIQUE: Imaging protocol: Diagnostic computed tomography of the chest without contrast. Radiation optimization: All CT scans at this facility use at least one of these dose optimization techniques: automated exposure control; mA and/or kV adjustment per patient size (includes targeted exams where dose is matched to clinical indication); or iterative reconstruction. COMPARISON: CT Chest with contrast 03/18/2021 5:37 AM FINDINGS: Thyroid: Nodular appearance of thyroid gland. Findings are consistent with findings demonstrated on a prior thyroid ultrasound of 08/25/2020. Lungs: Bibasilar pulmonary parenchymal infiltrates with air bronchograms. Finding may represent atelectasis although clinical correlation to exclude infection suggested. Findings severe of progressed in comparison to the prior study of 03/16/2021. Remaining lungs appear clear. Pleural spaces: Unremarkable. No pneumothorax. No pleural effusion. Heart: There is moderate atherosclerotic calcification of the coronary arteries. There is mild cardiomegaly. Mediastinal space: Dilated thoracic esophagus to the GE junction there is minimal wall thickening. Finding may be related to chronic reflux and or achalasia. Clinical correlation is fluid a distal esophageal neoplasm suggested. Pulmonary arteries: There is enlargement of the central pulmonary arteries, findings which can be associated with pulmonary arterial hypertension which should be correlated clinically. Aorta: There is fusiform dilatation of the ascending thoracic aorta which measures 3.7 cm. maximally. There is no dissection or saccular component. There is [id number] atherosclerosis in the thoracic aorta. Lymph nodes: Multiple small mediastinal lymph nodes likely postinflammatory. Bones/joints: Degenerative arthropathy left glenohumeral joint. Osteoporosis. Healed rib fractures left 7th and 8th ribs and the right 2nd through 8th ribs. Small sclerotic focus posterior aspect left 6th rib. Stable compression deformities of T3 with progression of fractures at T7 and new compression deformities at T8 and L1. Soft tissues: Unremarkable. IMPRESSION: 1. Bibasilar pulmonary parenchymal infiltrates with air bronchograms. Finding may represent atelectasis although clinical correlation to exclude infection suggested. Findings severe of progressed in comparison to the prior study of 03/16/2021. 2. Stable compression deformities of T3 with progression of fractures at T7 and new compression deformities at T8 and L1. 3. There is fusiform dilatation of the ascending thoracic aorta which measures 3.7 cm. maximally. There is no dissection or saccular component. 4. Dilated thoracic esophagus to the GE junction there is minimal wall thickening. Finding may be related to chronic reflux and or achalasia. Clinical correlation is fluid a distal esophageal neoplasm suggested. 5. There is enlargement of the central pulmonary arteries, findings which can be associated with pulmonary arterial hypertension which should be correlated clinically. 6. There is mild cardiomegaly. 7. Nodular appearance of thyroid gland. Findings are consistent with findings demonstrated on a prior thyroid ultrasound of 08/25/2020. Electronically signed by: Epifanio Petersen On 04/06/2021 18:35:50 PM
[2021-04-06] MEDS ORDERED: FERROUS GLUCONATE 324 MG TAB PO ONE (19:00)
--- NOTE | 2021-04-06 19:56 | ECGEPIP ---
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
[2021-04-06 20:08] VITALS: BP_SYST 125; BP_SYST 5; BP_DIAS 50
[2021-04-06] MEDS ORDERED: HYDROCORTISONE 5MG TABLET PO SCH (21:00)
[2021-04-06] MEDS: rOPINIRole 1MG TAB PO SCH (21:19)
[2021-04-06] MEDS: busPIRone 5 MG TAB PO SCH (21:19)
[2021-04-06] MEDS: traZODone 100 MG TAB PO SCH (21:19)
[2021-04-06] MEDS: APIXABAN 5 MG TAB (ELIQUIS) PO SCH (21:19)
[2021-04-06 23:40] LABS: CLOSTRIDIUM DIFFICILE PCR NEGATIVE (NEGATIVE)
[2021-04-07] MEDS: PERCOCET 5MG/325MG TAB PO PRN (03:16)
[2021-04-07 06:00] VITALS: BP 122/61
[2021-04-07] MEDS: HumaLOG INSULIN (NovoLOG) PER UNIT SC SCH ×4 (07:30→20:51)
[2021-04-07] MEDS ORDERED: PILL CUTTER 1 EACH XX PRN (08:30)
[2021-04-07] MEDS ORDERED: HYDROCORTISONE 5MG TABLET PO SCH (09:00)
[2021-04-07] MEDS: FERROUS GLUCONATE 324 MG TAB PO SCH ×2 (09:00→09:49)
[2021-04-07] MEDS: FLUTICASONE PROP 0.05% NASAL SPRAY 16 GM (FLONASE) NARES SCH (09:48)
[2021-04-07] MEDS: ASCORBIC ACID 500 MG TAB PO SCH (09:50)
[2021-04-07] MEDS: HYDROCORTISONE 10 MG TAB PO SCH ×2 (09:50→20:16)
[2021-04-07] MEDS: AMIODARONE 200 MG TAB (PACERONE) PO SCH (09:50)
[2021-04-07] MEDS: busPIRone 5 MG TAB PO SCH ×2 (09:51→20:16)
[2021-04-07] MEDS: APIXABAN 5 MG TAB (ELIQUIS) PO SCH ×2 (09:51→20:16)
[2021-04-07] MEDS: MORPHINE 4 MG/ML 1ML VIAL/SYRINGE (J2270) IV PRN ×2 (10:14→18:45)
[2021-04-07] MEDS ORDERED: metroNIDAZOLE 500 MG in IV 1 EA IV SCH (11:00)
--- NOTE | 2021-04-07 11:29 | IPN ---
PROGRESS NOTE DATE: 04/07/2021 SUBJECTIVE: Patient complains of 8/10 pain in her back. Unable to ambulate unassisted or get up out of bed. Afebrile. No complaints of nausea or vomiting. Still had incontinent bowel movements, one. CT abdomen shows early diverticulitis. OBJECTIVE: VITAL SIGNS: Temperature 99, pulse 68, respiratory rate 18, blood pressure 122/61, 99% on room air. GENERAL: Generally awake, alert and oriented to person, place, and time. Answering questions appropriately. LUNGS: Clear to auscultation, no wheezing, rales, or rhonchi. HEART: S1, S2, sinus rhythm, a 2/6 systolic ejection murmur radiating to the carotids noted at the apex. ABDOMEN: Soft, nontender, nondistended. Positive bowel sounds. No rebound or guarding. EXTREMITIES: No cyanosis, clubbing, or pitting edema. Laboratory data, microbiology, imaging studies have been reviewed. ASSESSMENT AND PLAN: A 76-year-old female with a history of COPD not oxygen dependent, chronic back pain with thoracic compression fracture, iron-deficiency anemia, chronic atrial fibrillation on Amiodarone and oral anticoagulant, adrenal insufficiency, diabetes, diastolic heart failure, restless leg syndrome, admitted due to severe deconditioning and inability to perform activities of daily living, requiring at least one person assistance with toiletry and ambulation. The patient has been having diarrhea at home. CT abdomen and pelvis shows early diverticulitis. CURRENT ISSUES: 1. Early diverticulitis with complaints of diarrhea. The patient is currently on Cipro and Flagyl. GI panel has been sent. Monitor for electrolyte abnormalities and worsening dehydration. 2. Debility with chronic compression fracture of the spine. PT/OT, ARU. Patient's family is requesting subacute placement if does not improve over the next few days. 3. COPD at baseline. 4. Pulmonary hypertension with chronic shortness of breath. No decompensation. 5. Diastolic heart failure, currently at baseline. Diuretics have been held due to persistent diarrhea. 6. Chronic back pain on Percocet. 7. Chronic atrial fibrillation, resumed on her home dose of Amiodarone and Eliquis. 8. Type-2 diabetes on Insulin sliding scale. Fingersticks before every meal and at bedtime and hypoglycemic protocol. 9. Restless leg syndrome on Requip. 10. History of adrenal insufficiency on chronic hydrocortisone.
[2021-04-07] MEDS: LACTOBACILLUS ACIDOPHILUS CAP (BACID) PO SCH ×3 (11:44→20:15)
[2021-04-07] MEDS: PERCOCET 5MG/325MG TAB PO SCH ×3 (11:44→20:16)
[2021-04-07] MEDS: PIPERACILLIN/TAZOBACTAM SOD 3.375 GM in D5W MINI-BAG PLUS 50 ML IV SCH ×2 (11:45→17:25)
[2021-04-07] MEDS ORDERED: PIPERACILLIN/TAZOBACTAM SOD 3.375 GM in D5W MINI-BAG PLUS 50 ML IV SCH (12:00)
[2021-04-07] MEDS ORDERED: CIPROFLOXACIN 400 MG in IV 1 EA IV SCH (12:00)
[2021-04-07 14:00] VITALS: BP 89/51
[2021-04-07 15:20] VITALS: BP 91/49
[2021-04-07] MEDS: rOPINIRole 1MG TAB PO SCH ×2 (17:27→20:16)
[2021-04-07] MEDS ORDERED: LACTOBACILLUS ACIDOPHILUS CAP (BACID) PO SCH (18:00)
[2021-04-07 19:37] VITALS: BP 100/54
[2021-04-07] MEDS: traZODone 100 MG TAB PO SCH (20:15)
[2021-04-08] MEDS: PIPERACILLIN/TAZOBACTAM SOD 3.375 GM in D5W MINI-BAG PLUS 50 ML IV SCH ×4 (00:07→18:24)
[2021-04-08 06:04] VITALS: BP 108/56
[2021-04-08] MEDS: MORPHINE 4 MG/ML 1ML VIAL/SYRINGE (J2270) IV PRN (06:19)
[2021-04-08] MEDS: HumaLOG INSULIN (NovoLOG) PER UNIT SC SCH ×4 (07:30→20:23)
[2021-04-08] MEDS: TORSEMIDE 20 MG TAB PO SCH ×2 (09:00→17:00)
[2021-04-08] MEDS ORDERED: NALOXONE INJ 0.4MG/1ML VIAL (J2310 PER 1MG) IV PRN (09:15)
[2021-04-08] MEDS: HYDROCORTISONE 10 MG TAB PO SCH ×2 (09:22→20:50)
[2021-04-08] MEDS: LACTOBACILLUS ACIDOPHILUS CAP (BACID) PO SCH ×4 (09:22→20:49)
[2021-04-08] MEDS: APIXABAN 5 MG TAB (ELIQUIS) PO SCH ×2 (09:23→20:49)
[2021-04-08] MEDS: FERROUS GLUCONATE 324 MG TAB PO SCH (09:25)
[2021-04-08] MEDS: FLUTICASONE PROP 0.05% NASAL SPRAY 16 GM (FLONASE) NARES SCH (09:25)
[2021-04-08] MEDS: ASCORBIC ACID 500 MG TAB PO SCH (09:25)
[2021-04-08] MEDS: ACETAMINOPHEN 500 MG TAB PO PRN (09:26)
[2021-04-08] MEDS: busPIRone 5 MG TAB PO SCH ×2 (09:26→20:49)
[2021-04-08] MEDS ORDERED: KETOROLAC 30 MG/ML 1ML VIAL IV ONE (09:30)
[2021-04-08 10:27] LABS: BASO # 0.1 10^3/uL (0.0-0.2); BASO % 0.6 % (0.0-1.0); EOS # 0.2 10^3/uL (0.0-0.5); EOS % 1.7 % (0.0-3.0); HEMATOCRIT 35.7 % (36.0-47.0); HEMOGLOBIN 10.5 g/dl (12.0-15.5); LYMPH # 1.6 10^3/uL (1.5-5.0); LYMPH % 16.5 % (24.0-44.0); MEAN CORPUSCULAR HEMOGLOBIN 26.1 pg (27.0-33.0); MEAN CORPUSCULAR HGB CONC 29.4 g/dl (32.0-36.5); MEAN CORPUSCULAR VOLUME 88.8 fl (80.0-96.0); MONO # 1.1 10^3/uL (0.0-0.8); NEUTROPHILS # 6.9 10^3/uL (1.5-8.5); NEUTROPHILS % 69.7 % (36.0-66.0); PLATELET COUNT, AUTOMATED 635 10^3/uL (150-450); RED BLOOD COUNT 4.02 10^6/uL (4.00-5.40); WHITE BLOOD COUNT 9.8 10^3/uL (4.0-10.0)
[2021-04-08 10:47] LABS: CALCIUM LEVEL 7.8 MG/DL (8.8-10.2); CREATININE FOR GFR 1.13 MG/DL (0.55-1.30); GLOMERULAR FILTRATION RATE 49.7 (>39); MAGNESIUM LEVEL 2.6 MG/DL (1.8-2.4); POTASSIUM SERUM 4.9 MEQ/L (3.5-5.1)
[2021-04-08] MEDS: PERCOCET 5MG/325MG TAB PO SCH ×2 (12:40→18:26)
--- NOTE | 2021-04-08 12:41 | IPN ---
PROGRESS NOTE DATE: 04/08/2021 SUBJECTIVE: The patient complains of continued generalized weakness. No nausea or vomiting. No abdominal pain. Tolerating her diet well. Diarrhea is improving. Afebrile. No chills overnight. OBJECTIVE: VITAL SIGNS: Temperature 96.7, pulse 53, respiratory rate 20, blood pressure 109/54, 100% on 2 liters nasal cannula. GENERAL: The patient is awake, alert, and oriented x3. Still has slight scoliosis. No pallor, icterus, or jaundice. No use of respiratory accessory muscles. LUNGS: Clear to auscultation. No wheezing, rales, or rhonchi. HEART: S1, S2. Sinus rhythm. ABDOMEN: Soft, nontender, and nondistended with positive bowel sounds. EXTREMITIES: No cyanosis, clubbing, or pitting edema. DIAGNOSTIC STUDIES: Laboratory data, microbiology, and imaging studies have been reviewed. ASSESSMENT: A 76-year-old female with history of COPD not oxygen-dependent, chronic back pain with thoracic compression fracture, iron deficiency anemia, chronic AFib on amiodarone and oral anticoagulant, adrenal insufficiency on chronic hydrocortisone, diabetes, diastolic heart failure, and restless legs admitted due to severe deconditioning and inability to perform activities of daily living (ADLs) requiring one-person assistance with toiletry and ambulation. The patient had been having diarrhea. CT of the abdomen and pelvis shows early diverticulitis. Current issues are as follows: Early diverticulitis, debility with chronic compression fracture of the spine, chronic obstructive pulmonary disease (COPD) at baseline appears to be compensated, pulmonary hypertension with chronic shortness of breath, diastolic congestive heart failure, chronic back pain, chronic atrial fibrillation (AFib), type 2 diabetes, restless legs, and adrenal insufficiency on chronic hydrocortisone. PLAN: The patient is tolerating her diet well. She is on Cipro and Flagyl currently. Gastrointestinal (GI) panel has been sent. Acute rehabilitation unit (ARU) has been consulted. The patient is open to doing subacute rehab in case she is not appropriate for acute rehab. Her COPD is at baseline. Her diuretics were initially held due to diarrhea. Currently has had none in the hospital. May resume patient's diuretics today. GWEN
[2021-04-08 14:00] VITALS: BP 113/53
[2021-04-08 17:50] VITALS: BP 111/52
[2021-04-08] MEDS ORDERED: SUCRALFATE SUSP 1GM/10ML UD PO ONE (17:55)
[2021-04-08] MEDS ORDERED: MORPHINE 2 MG/ML 1ML VIAL (J2270) IV ONE (17:55)
[2021-04-08] MEDS ORDERED: PANTOPRAZOLE 40MG VIAL (C9113 PER 1) IV ONE (18:00)
[2021-04-08] MEDS ORDERED: LEVALBUTEROL 1.25 MG/0.5 ML CONCENTRATE NEB INH PRN (18:00)
[2021-04-08] MEDS ORDERED: NITROGLYCERIN 0.4 MG SUBL TABLET SL ONE (18:00)
--- NOTE | 2021-04-08 18:15 | REP ---
INDICATION: chest pain COMPARISON: 04/06/2021 TECHNIQUE: Portable AP view of the chest FINDINGS: The mediastinum and cardiac silhouette are stable and within normal limits for portable technique. The lung oshea demonstrate diffuse chronic interstitial changes. Superimposed left lower lobe/retrocardiac consolidation and small pleural reaction cannot be excluded. Right hemithorax is relatively clear. No pneumothorax. Skeletal structures demonstrate osteopenia, degenerative changes, and healed rib and left shoulder fracture. IMPRESSION: Findings suspicious of left lower lobe atelectasis/consolidation and small pleural reaction.. <Electronically signed by Anastacio Ritchie > 04/08/21 [id number]
[2021-04-08] MEDS: rOPINIRole 1MG TAB PO SCH ×2 (18:27→20:49)
[2021-04-08 18:50] VITALS: BP 122/58
[2021-04-08] MEDS ORDERED: GI COCKTAIL 50ML BTL(HYOSCYAMINE/MAALOX/LIDOCAINE VISCOUS)(1:3:1) PO ONE (19:00)
[2021-04-08 19:02] LABS: CK-MB VALUE MASS < 1.0 NG/ML (<3.6); CPK CREATINE PHOSPHOKINASE 25 U/L (26-192); NT-PRO BNP 2684 PG/ML (<450); TROPONIN I < 0.02 NG/ML (< 0.10)
[2021-04-08] MEDS: LEVALBUTEROL 1.25 MG/0.5 ML CONCENTRATE NEB INH SCH (19:18)
[2021-04-08 19:34] VITALS: BP 92/38
[2021-04-08] MEDS ORDERED: NS 500 ML IV ONE (20:30)
[2021-04-08] MEDS: traZODone 100 MG TAB PO SCH (20:49)
[2021-04-08 22:13] VITALS: BP 110/52
[2021-04-09] MEDS: LEVALBUTEROL 1.25 MG/0.5 ML CONCENTRATE NEB INH SCH ×6 (00:18→19:42)
[2021-04-09 00:33] VITALS: BP 132/60
[2021-04-09] MEDS: PIPERACILLIN/TAZOBACTAM SOD 3.375 GM in D5W MINI-BAG PLUS 50 ML IV SCH ×2 (00:41→06:13)
[2021-04-09] MEDS: PERCOCET 5MG/325MG TAB PO SCH ×4 (00:42→17:57)
[2021-04-09 05:52] LABS: BASO # 0.1 10^3/uL (0.0-0.2); BASO % 0.6 % (0.0-1.0); EOS # 0.1 10^3/uL (0.0-0.5); EOS % 1.1 % (0.0-3.0); HEMOGLOBIN 9.5 g/dl (12.0-15.5); LYMPH # 1.6 10^3/uL (1.5-5.0); LYMPH % 19.9 % (24.0-44.0); MEAN CORPUSCULAR HEMOGLOBIN 25.4 pg (27.0-33.0); MEAN CORPUSCULAR HGB CONC 28.8 g/dl (32.0-36.5); MEAN CORPUSCULAR VOLUME 88.2 fl (80.0-96.0); MONO # 0.9 10^3/uL (0.0-0.8); MONO % 10.9 % (2.0-8.0); NEUTROPHILS # 5.5 10^3/uL (1.5-8.5); NEUTROPHILS % 66.9 % (36.0-66.0); PLATELET COUNT, AUTOMATED 632 10^3/uL (150-450); RED BLOOD COUNT 3.74 10^6/uL (4.00-5.40); WHITE BLOOD COUNT 8.2 10^3/uL (4.0-10.0)
[2021-04-09 06:01] LABS: BLOOD UREA NITROGEN 26 MG/DL (7-18); CALCIUM LEVEL 7.6 MG/DL (8.8-10.2); CARBON DIOXIDE LEVEL 25 MEQ/L (21-32); CHLORIDE LEVEL 107 MEQ/L (98-107); CREATININE FOR GFR 0.93 MG/DL (0.55-1.30); GLOMERULAR FILTRATION RATE > 60.0 (>39); GLUCOSE, FASTING 141 MG/DL (70-100); MAGNESIUM LEVEL 2.6 MG/DL (1.8-2.4); POTASSIUM SERUM 4.4 MEQ/L (3.5-5.1); SODIUM LEVEL 139 MEQ/L (136-145)
[2021-04-09 06:04] VITALS: BP 122/47
[2021-04-09] MEDS: TORSEMIDE 20 MG TAB PO SCH ×2 (09:00→17:56)
[2021-04-09] MEDS: APIXABAN 5 MG TAB (ELIQUIS) PO SCH ×2 (09:02→20:29)
[2021-04-09] MEDS: FERROUS GLUCONATE 324 MG TAB PO SCH (09:02)
[2021-04-09] MEDS: HumaLOG INSULIN (NovoLOG) PER UNIT SC SCH ×4 (09:03→20:30)
[2021-04-09] MEDS: HYDROCORTISONE 10 MG TAB PO SCH ×2 (09:03→20:29)
[2021-04-09] MEDS: LACTOBACILLUS ACIDOPHILUS CAP (BACID) PO SCH ×4 (09:04→20:29)
[2021-04-09] MEDS: ASCORBIC ACID 500 MG TAB PO SCH (09:04)
[2021-04-09] MEDS: FLUTICASONE PROP 0.05% NASAL SPRAY 16 GM (FLONASE) NARES SCH (09:04)
[2021-04-09] MEDS: busPIRone 5 MG TAB PO SCH ×2 (09:04→20:29)
[2021-04-09] MEDS ORDERED: oxyCODONE 5MG TAB PO ONE (11:00)
[2021-04-09] MEDS: AUGMENTIN 875 MG TAB PO SCH ×2 (12:19→20:29)
[2021-04-09 14:16] VITALS: BP 119/46
--- NOTE | 2021-04-09 15:52 | IPN ---
PROGRESS NOTE DATE: 04/09/2021 SUBJECTIVE: The patient still complains of 7/10 pain especially in the left-sided rib area and back pain without radiculopathy unalleviated by the current pain medications q. 6 hourly. Afebrile. No chills. No cough. Tolerating her diet well without nausea or vomiting. The patient is being treated for diverticulitis, a well as pneumonia. No sputum production currently. OBJECTIVE: VITAL SIGNS: Temperature 96.7, pulse 71, respiratory rate 16, blood pressure 110/54, 99% on 2 liters nasal cannula. GENERAL: The patient is awake, alert, and oriented. Answering questions appropriately. Slightly hard of hearing. NECK: No JVD or thyromegaly. No stridor. No use of respiratory accessory muscles. LUNGS: Diminished at the bases with fine crepitations. HEART: S1, S2, sinus. ABDOMEN: Soft, nontender, and nondistended with positive bowel sounds. EXTREMITIES: No cyanosis or clubbing. DIAGNOSTIC STUDIES: Laboratory data, microbiology, and imaging studies have been reviewed. ASSESSMENT: This is a 76-year-old with history of chronic obstructive pulmonary disease (COPD) not oxygen dependent, chronic back pain, thoracic compression fracture, iron deficiency anemia, chronic atrial fibrillation (AFib) on amiodarone and oral anticoagulant, adrenal insufficiency, type 2 diabetes, diastolic heart failure, and restless legs admitted due to inability to ambulate, severe deconditioning, and diarrhea. CT abdomen and pelvis showed early diverticulitis. IMPRESSION: 1. Early diverticulitis. 2. Chronic back pain due to compression fracture of the spine. 3. COPD, compensated. 4. Pulmonary hypertension with chronic shortness of breath. 5. Diastolic heart failure, compensated. 6. Chronic atrial fibrillation, stable. 7. Type 2 diabetes. 8. History of adrenal insufficiency, stable. PLAN: Pain is now well-controlled currently; therefore, we will give oxycodone and Percocet. Acute rehabilitation unit (ARU) has been consulted. She is continued on all other home medications. Currently on IV Zosyn for diverticulitis, as well as possible pneumonia. The patient is open to being placed in subacute rehab. [facility]
[2021-04-09] MEDS: rOPINIRole 1MG TAB PO SCH ×2 (17:56→20:29)
--- NOTE | 2021-04-09 19:15 | ECGEPIP ---
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
[2021-04-09] MEDS: traZODone 100 MG TAB PO SCH (20:28)
[2021-04-09 22:00] VITALS: BP 115/51
[2021-04-10] MEDS: LEVALBUTEROL 1.25 MG/0.5 ML CONCENTRATE NEB INH SCH ×6 (00:27→21:00)
[2021-04-10] MEDS: PERCOCET 5MG/325MG TAB PO SCH ×4 (05:04→17:54)
[2021-04-10 05:14] VITALS: BP 115/50
[2021-04-10 06:39] LABS: BASO # 0.1 10^3/uL (0.0-0.2); BASO % 0.6 % (0.0-1.0); EOS # 0.2 10^3/uL (0.0-0.5); EOS % 1.9 % (0.0-3.0); HEMATOCRIT 34.6 % (36.0-47.0); HEMOGLOBIN 10.2 g/dl (12.0-15.5); LYMPH # 1.5 10^3/uL (1.5-5.0); LYMPH % 19.6 % (24.0-44.0); MEAN CORPUSCULAR HEMOGLOBIN 25.7 pg (27.0-33.0); MEAN CORPUSCULAR HGB CONC 29.5 g/dl (32.0-36.5); MEAN CORPUSCULAR VOLUME 87.2 fl (80.0-96.0); MONO % 12.5 % (2.0-8.0); NEUTROPHILS % 64.5 % (36.0-66.0); PLATELET COUNT, AUTOMATED 635 10^3/uL (150-450); RED BLOOD COUNT 3.97 10^6/uL (4.00-5.40); WHITE BLOOD COUNT 7.8 10^3/uL (4.0-10.0)
[2021-04-10 07:05] LABS: BLOOD UREA NITROGEN 19 MG/DL (7-18); CALCIUM LEVEL 8.3 MG/DL (8.8-10.2); CARBON DIOXIDE LEVEL 27 MEQ/L (21-32); CHLORIDE LEVEL 105 MEQ/L (98-107); CREATININE FOR GFR 0.69 MG/DL (0.55-1.30); GLOMERULAR FILTRATION RATE > 60.0 (>39); GLUCOSE, FASTING 147 MG/DL (70-100); POTASSIUM SERUM 3.7 MEQ/L (3.5-5.1); SODIUM LEVEL 139 MEQ/L (136-145)
[2021-04-10] MEDS: HumaLOG INSULIN (NovoLOG) PER UNIT SC SCH ×4 (08:43→21:00)
[2021-04-10] MEDS: HYDROCORTISONE 10 MG TAB PO SCH ×2 (08:43→21:08)
[2021-04-10] MEDS: AUGMENTIN 875 MG TAB PO SCH ×2 (08:43→21:08)
[2021-04-10] MEDS: LACTOBACILLUS ACIDOPHILUS CAP (BACID) PO SCH ×4 (08:43→21:09)
[2021-04-10] MEDS: APIXABAN 5 MG TAB (ELIQUIS) PO SCH ×2 (08:43→21:09)
[2021-04-10] MEDS: ASCORBIC ACID 500 MG TAB PO SCH (08:43)
[2021-04-10 08:44] VITALS: BP 124/58
[2021-04-10] MEDS: TORSEMIDE 20 MG TAB PO SCH ×2 (08:44→17:54)
[2021-04-10] MEDS: FERROUS GLUCONATE 324 MG TAB PO SCH (08:44)
[2021-04-10] MEDS: AMIODARONE 200 MG TAB (PACERONE) PO SCH (08:44)
[2021-04-10] MEDS: busPIRone 5 MG TAB PO SCH ×2 (08:44→21:09)
[2021-04-10] MEDS: FLUTICASONE PROP 0.05% NASAL SPRAY 16 GM (FLONASE) NARES SCH (08:44)
[2021-04-10] MEDS ORDERED: KETOROLAC 30 MG/ML 1ML VIAL IV ONE (09:00)
[2021-04-10] MEDS ORDERED: MORPHINE 2 MG/ML 1ML VIAL (J2270) IV ONE (09:00)
[2021-04-10] MEDS ORDERED: MORPHINE 30 MG TAB **MSIR PO ONE (09:30)
[2021-04-10] MEDS ORDERED: IBUPROFEN 200MG TAB PO ONE (10:00)
--- NOTE | 2021-04-10 11:26 | IPN ---
PROGRESS NOTE DATE: 04/10/2021 SUBJECTIVE: Patient complains of 7/10 pain in her lower back, assisted by physical therapy to the bedside chair. No lower extremity weakness or radiculopathy. Patient had no fever or chills. She is tolerating her diet. Patient says she has diarrhea, but non-documented on the EMR. PHYSICAL EXAMINATION: VITAL SIGNS: Temperature 98, pulse 72, respiratory rate 17, blood pressure 124/58, 96% on 2 liters nasal cannula. GENERAL: Awake, alert, oriented to herself. Answering questions appropriately. LUNGS: Clear to auscultation. No wheezes or rales. HEART: S1, S2, sinus rhythm. ABDOMEN: Soft, nontender, non-distended. Positive bowel sounds. EXTREMITIES: No cyanosis, clubbing or pitting edema. LABORATORY DATA/IMAGING STUDIES/MICROBIOLOGY: Reviewed. ASSESSMENT AND PLAN: A 76-year-old with history of COPD; not oxygen dependent, chronic back pain, thoracic compression fracture, iron deficiency anemia, chronic atrial fibrillation on Amiodarone and oral anticoagulant adrenal insufficiency on chronic hydrocortisone and Florinef, type 2 diabetes, diastolic heart failure, restless leg syndrome, who was admitted due to deconditioning, inability to ambulate and unable to perform activities of daily living, complained of diarrhea on admission, but non-documented here in the hospital. CT abdomen and pelvis showed early diverticulitis. CURRENT ACTIVE ISSUES: 1. Early diverticulitis: Currently on Augmentin, tolerating her diet well. No complaints of abdominal pain. Obtain C. diff culture, off of bowel regimen. Complains of persistent diarrhea, but non-documented on the electronic medical record. 2. Compression fracture with chronic back pain: Unable to perform ADLs secondary to pain. Currently on Percocet one tablet every 6 hours. ARU has been consulted. Activity as tolerated. Family is requesting subacute rehabilitation placement for rehab services. PT and OT have also been seeing the patient. 3. History of diastolic congestive heart failure: Resumed on home diuretics. 4. Chronic adrenal insufficiency: On Hydrocortisone and Florinef. 5. COPD: Compensated on home inhalers. 6. Chronic atrial fibrillation: Currently in sinus rhythm on Amiodarone and anticoagulation. 7. Type 2 diabetes: Continue sliding scale with coverage and fingersticks every AC and HS. DISPOSITION: Awaiting ARU screen. [facility]
[2021-04-10 14:00] VITALS: BP 122/54
[2021-04-10] MEDS: rOPINIRole 1MG TAB PO SCH ×2 (17:53→21:08)
[2021-04-10] MEDS: traZODone 100 MG TAB PO SCH (21:08)
[2021-04-10 22:00] VITALS: BP 115/48
[2021-04-11] MEDS: LEVALBUTEROL 1.25 MG/0.5 ML CONCENTRATE NEB INH SCH ×6 (00:15→20:00)
[2021-04-11] MEDS: PERCOCET 5MG/325MG TAB PO SCH ×2 (00:20→06:16)
[2021-04-11 06:00] VITALS: BP 115/50
[2021-04-11 06:53] LABS: BASO # 0.1 10^3/uL (0.0-0.2); BASO % 0.9 % (0.0-1.0); EOS # 0.2 10^3/uL (0.0-0.5); EOS % 1.9 % (0.0-3.0); HEMATOCRIT 32.1 % (36.0-47.0); HEMOGLOBIN 9.7 g/dl (12.0-15.5); LYMPH # 1.8 10^3/uL (1.5-5.0); MEAN CORPUSCULAR HEMOGLOBIN 26.4 pg (27.0-33.0); MEAN CORPUSCULAR HGB CONC 30.2 g/dl (32.0-36.5); MEAN CORPUSCULAR VOLUME 87.5 fl (80.0-96.0); MONO # 1.2 10^3/uL (0.0-0.8); MONO % 14.6 % (2.0-8.0); NEUTROPHILS # 4.8 10^3/uL (1.5-8.5); NEUTROPHILS % 59.8 % (36.0-66.0); PLATELET COUNT, AUTOMATED 643 10^3/uL (150-450); RED BLOOD COUNT 3.67 10^6/uL (4.00-5.40)
[2021-04-11 07:14] LABS: BLOOD UREA NITROGEN 21 MG/DL (7-18); CALCIUM LEVEL 8.1 MG/DL (8.8-10.2); CARBON DIOXIDE LEVEL 29 MEQ/L (21-32); CHLORIDE LEVEL 104 MEQ/L (98-107); CREATININE FOR GFR 0.72 MG/DL (0.55-1.30); GLOMERULAR FILTRATION RATE > 60.0 (>39); GLUCOSE, FASTING 158 MG/DL (70-100); MAGNESIUM LEVEL 1.4 MG/DL (1.8-2.4); POTASSIUM SERUM 3.7 MEQ/L (3.5-5.1); SODIUM LEVEL 140 MEQ/L (136-145)
[2021-04-11] MEDS ORDERED: MAG SULF 1GM/100ML (MAG RUN) 1 GM in IV 1 EA IV SCH (08:00)
[2021-04-11] MEDS: TORSEMIDE 20 MG TAB PO SCH ×2 (09:00→17:00)
[2021-04-11 09:16] LABS: C REACTIVE PROTEIN QUANTITATIV 1.49 MG/DL (0.00-0.30)
[2021-04-11] MEDS: APIXABAN 5 MG TAB (ELIQUIS) PO SCH ×2 (09:34→21:43)
[2021-04-11] MEDS: MAGNESIUM OXIDE 400MG TAB (MAG-OX) PO SCH ×2 (09:34→21:43)
[2021-04-11] MEDS: HumaLOG INSULIN (NovoLOG) PER UNIT SC SCH ×4 (09:35→20:45)
[2021-04-11] MEDS: MORPHINE 15 MG SA TAB PO SCH ×2 (09:35→21:00)
[2021-04-11] MEDS: HYDROCORTISONE 10 MG TAB PO SCH ×2 (09:35→21:43)
[2021-04-11] MEDS: LACTOBACILLUS ACIDOPHILUS CAP (BACID) PO SCH ×4 (09:35→21:43)
[2021-04-11] MEDS: AUGMENTIN 875 MG TAB PO SCH ×2 (09:36→21:43)
[2021-04-11] MEDS: busPIRone 5 MG TAB PO SCH ×2 (09:36→21:43)
[2021-04-11] MEDS: FERROUS GLUCONATE 324 MG TAB PO SCH (09:36)
[2021-04-11] MEDS: FLUTICASONE PROP 0.05% NASAL SPRAY 16 GM (FLONASE) NARES SCH (09:36)
[2021-04-11] MEDS: ASCORBIC ACID 500 MG TAB PO SCH (09:36)
--- NOTE | 2021-04-11 10:08 | IPNPDOC ---
Text Note Date of Service The patient was seen on 04/11/21. NOTE Subjective: Patient is a 76-year-old female with a PMHx of Chronic A. fib (on Amiodarone / Eliquis), Diastolic CHF, NIMDD2, COPD, Chronic back pain, Thoracic compression fractures, Iron deficiency anemia, Adrenal insufficiency (on Hydrocortisone / Fludrocortisone), RLS , who presented to the emergency room because of deconditioning and inability to ambulate, unable to perform activities of daily living. Patient was admitted to the hospital service for further evaluation and treatment. Patient was seen and examined at the bedside. Patient still reporting significant pain. Denies any chest pain, shortness of breath or palpitations. Has not spent any nausea, vomiting, abdominal pain or diarrhea. Reported her diarrhea has resolved since admission. Objective: Vitals (See below) General: Lying in bed, no acute distress, comfortable, AAOx3 HEENT: NC, AT CVS: +S1S2 Lungs: Fair air entry b/l, -w/r/r Abdomen: Soft, ND, NT Extremities: - Edema, - Calf tenderness Imaging: Abdomen XR 04/06: 1. Suspected acute on chronic pulmonary parenchymal changes. 2. Bowel gas pattern suggests ileus and possible underlying enterocolitis cannot be excluded. CT abdomen / pelvis 04/06: 1. Appearance of L3 is stable since the prior study of 2017 although the compression deformity at L1 represents an interval change. 2. There are gallstones present. No evidence of cholecystitis demonstrated. 3. There is diffuse pancreatic atrophy. 4. There has been a hysterectomy. 5. Moderate diverticulosis is present in the distal colon. Subtle pericolonic inflammatory changes demonstrated in the mid sigmoid colon, findings which may suggest the presence of mild uncomplicated diverticulitis. 6. Right-sided mild to mild hydroureteronephrosis without obstructing etiology. 7. Increased fecal retention left hemicolon may signify the presence of constipation. CT Chest 04/06: 1. Bibasilar pulmonary parenchymal infiltrates with air bronchograms. Finding may represent atelectasis although clinical correlation to exclude infection suggested. Findings severe of progressed in comparison to the prior study of 03/16/2021. 2. Stable compression deformities of T3 with progression of fractures at T7 and new compression deformities at T8 and L1. 3. There is fusiform dilatation of the ascending thoracic aorta which measures 3.7 cm. maximally. There is no dissection or saccular component. 4. Dilated thoracic esophagus to the GE junction there is minimal wall thickening. Finding may be related to chronic reflux and or achalasia. Clinical correlation is fluid a distal esophageal neoplasm suggested. 5. There is enlargement of the central pulmonary arteries, findings which can be associated with pulmonary arterial hypertension which should be correlated clinically. 6. There is mild cardiomegaly. 7. Nodular appearance of thyroid gland. Findings are consistent with findings demonstrated on a prior thyroid ultrasound of 08/25/2020. CXR 04/08: Findings suspicious of left lower lobe atelectasis/consolidation and small pleural reaction.. Assessment and plan: Early diverticulitis - Currently patient denies any nausea, vomiting or any significant abdominal pain - Patient reports that her diarrhea has resolved since admission - Physical does not reveal any abdominal tenderness - No leukocytosis - CRP is improving - c/w Lactobacilus - c/w Augmentin (Day #3) Compression fracture with chronic back pain - Patient has reported inability to perform ADLs - Imaging noted above - c/w Percocet; will adjust to PRN, will add MS Contin - c/w PT and OT; patient is refusing rehabilitation Chronic A. fib - c/w rate / rhythm control with Amiodarone and Diltiazem - c/w full anticoagulation with Eliquis Chronic Diastolic CHF - Currently does not appear to be in any decompensation - c/w Torsemide Hypomagnesemia - Will supplement via PO; patient refusing IV line NIMDD2 - c/w ISS COPD - Patient is currently on 2 L of nasal cannula oxygen, reportedly uses a home - c/w inhaled therapy as ordered Iron deficiency anemia Adrenal insufficiency - c/w Hydrocortisone RLS - c/w Ropinirole Depression / Insomnia - c/w Buspirone / Trazodone GERD - Will resume Omeprazole DVT prophylaxis - c/w full anticoagulation with Eliquis Disposition: - Patient is not a candidate for ARU - Will continue with PT, OT and look into subacute rehabilitation - Will change status to ALC VS,Fishbone, I+O VS, Fishbone, I+O Laboratory Tests 04/11/21 06:05 Vital Signs Date Time Temp Pulse Resp B/P (MAP) Pulse Ox O2 Delivery O2 Flow Rate FiO2 04/11/21 09:35 17 6/1/21 09:34 61 108/59 04/11/21 06:00 98.7 98 High Flow Cannula 2.0 I&O- Last 24 Hours up to 6 AM 04/11/21 06:00 Intake Total 1020 ml Output Total 0 ml Balance 1020 ml SALVADOR LANGFORD MD Apr 11, 2021 10:08
[2021-04-11] MEDS: TIOTROPIUM INHALER/CAPSULE (SPIRIVA) INH SCH (11:01)
[2021-04-11] MEDS: ADVAIR HFA 115/21MCG INHALER INH SCH ×2 (11:01→20:07)
[2021-04-11] MEDS: OMEPRAZOLE 20 MG CAP PO SCH (11:26)
[2021-04-11] MEDS: PERCOCET 5MG/325MG TAB PO PRN ×2 (13:06→19:59)
[2021-04-11] MEDS: rOPINIRole 1MG TAB PO SCH ×2 (18:05→21:43)
[2021-04-11] MEDS: traZODone 100 MG TAB PO SCH (21:42)
[2021-04-12] MEDS: LEVALBUTEROL 1.25 MG/0.5 ML CONCENTRATE NEB INH SCH ×7 (00:11→22:42)
[2021-04-12] MEDS: PERCOCET 5MG/325MG TAB PO PRN ×2 (04:12→17:27)
[2021-04-12 06:00] VITALS: BP 119/53
[2021-04-12 06:20] LABS: BASO # 0.1 10^3/uL (0.0-0.2); BASO % 0.8 % (0.0-1.0); EOS # 0.2 10^3/uL (0.0-0.5); EOS % 1.9 % (0.0-3.0); HEMOGLOBIN 9.9 g/dl (12.0-15.5); LYMPH # 1.9 10^3/uL (1.5-5.0); LYMPH % 23.1 % (24.0-44.0); MEAN CORPUSCULAR HEMOGLOBIN 25.2 pg (27.0-33.0); MEAN CORPUSCULAR HGB CONC 29.1 g/dl (32.0-36.5); MEAN CORPUSCULAR VOLUME 86.5 fl (80.0-96.0); MONO # 1.1 10^3/uL (0.0-0.8); MONO % 13.8 % (2.0-8.0); NEUTROPHILS # 4.9 10^3/uL (1.5-8.5); NEUTROPHILS % 59.6 % (36.0-66.0); PLATELET COUNT, AUTOMATED 678 10^3/uL (150-450); RED BLOOD COUNT 3.93 10^6/uL (4.00-5.40); WHITE BLOOD COUNT 8.2 10^3/uL (4.0-10.0)
[2021-04-12 06:42] LABS: BLOOD UREA NITROGEN 19 MG/DL (7-18); CALCIUM LEVEL 8.8 MG/DL (8.8-10.2); CARBON DIOXIDE LEVEL 31 MEQ/L (21-32); CHLORIDE LEVEL 103 MEQ/L (98-107); CREATININE FOR GFR 0.68 MG/DL (0.55-1.30); GLOMERULAR FILTRATION RATE > 60.0 (>39); GLUCOSE, FASTING 166 MG/DL (70-100); MAGNESIUM LEVEL 1.8 MG/DL (1.8-2.4); POTASSIUM SERUM 4.4 MEQ/L (3.5-5.1); SODIUM LEVEL 140 MEQ/L (136-145)
[2021-04-12] MEDS: TIOTROPIUM INHALER/CAPSULE (SPIRIVA) INH SCH (07:32)
[2021-04-12] MEDS: ADVAIR HFA 115/21MCG INHALER INH SCH ×2 (07:34→19:19)
[2021-04-12] MEDS: LACTOBACILLUS ACIDOPHILUS CAP (BACID) PO SCH ×4 (08:39→20:20)
[2021-04-12] MEDS: HumaLOG INSULIN (NovoLOG) PER UNIT SC SCH ×2 (08:39→11:32)
[2021-04-12] MEDS: FERROUS GLUCONATE 324 MG TAB PO SCH (08:40)
[2021-04-12] MEDS: HYDROCORTISONE 10 MG TAB PO SCH ×2 (08:40→20:19)
[2021-04-12] MEDS: MORPHINE 15 MG SA TAB PO SCH ×2 (08:40→20:20)
[2021-04-12] MEDS: OMEPRAZOLE 20 MG CAP PO SCH (08:40)
[2021-04-12] MEDS: ASCORBIC ACID 500 MG TAB PO SCH (08:40)
[2021-04-12] MEDS: AMIODARONE 200 MG TAB (PACERONE) PO SCH (08:40)
[2021-04-12] MEDS: busPIRone 5 MG TAB PO SCH ×2 (08:40→20:20)
[2021-04-12] MEDS: APIXABAN 5 MG TAB (ELIQUIS) PO SCH ×2 (08:40→20:20)
[2021-04-12] MEDS: MAGNESIUM OXIDE 400MG TAB (MAG-OX) PO SCH ×2 (08:40→20:20)
[2021-04-12] MEDS: AUGMENTIN 875 MG TAB PO SCH ×2 (08:41→20:20)
[2021-04-12] MEDS: FLUTICASONE PROP 0.05% NASAL SPRAY 16 GM (FLONASE) NARES SCH (08:41)
[2021-04-12] MEDS: TORSEMIDE 20 MG TAB PO SCH ×2 (08:41→17:00)
[2021-04-12] MEDS ORDERED: AMOX875T2 PO (08:54)
[2021-04-12] MEDS ORDERED: RISATAB3 PO (08:54)
[2021-04-12] MEDS: rOPINIRole 1MG TAB PO SCH ×2 (17:27→20:19)
[2021-04-12] MEDS: traZODone 100 MG TAB PO SCH (20:20)
[2021-04-13] MEDS: LEVALBUTEROL 1.25 MG/0.5 ML CONCENTRATE NEB INH SCH ×7 (04:26→23:55)
[2021-04-13 06:00] VITALS: BP 134/60
[2021-04-13 06:03] LABS: BASO # 0.1 10^3/uL (0.0-0.2); BASO % 0.7 % (0.0-1.0); EOS # 0.2 10^3/uL (0.0-0.5); EOS % 1.8 % (0.0-3.0); HEMATOCRIT 33.3 % (36.0-47.0); HEMOGLOBIN 9.8 g/dl (12.0-15.5); LYMPH # 1.9 10^3/uL (1.5-5.0); MEAN CORPUSCULAR HEMOGLOBIN 25.8 pg (27.0-33.0); MEAN CORPUSCULAR HGB CONC 29.4 g/dl (32.0-36.5); MEAN CORPUSCULAR VOLUME 87.6 fl (80.0-96.0); MONO # 1.1 10^3/uL (0.0-0.8); MONO % 11.1 % (2.0-8.0); NEUTROPHILS # 6.5 10^3/uL (1.5-8.5); NEUTROPHILS % 66.6 % (36.0-66.0); PLATELET COUNT, AUTOMATED 627 10^3/uL (150-450); WHITE BLOOD COUNT 9.8 10^3/uL (4.0-10.0)
[2021-04-13 06:31] LABS: BLOOD UREA NITROGEN 16 MG/DL (7-18); CALCIUM LEVEL 8.8 MG/DL (8.8-10.2); CARBON DIOXIDE LEVEL 31 MEQ/L (21-32); CHLORIDE LEVEL 105 MEQ/L (98-107); CREATININE FOR GFR 0.58 MG/DL (0.55-1.30); GLOMERULAR FILTRATION RATE > 60.0 (>39); GLUCOSE, FASTING 140 MG/DL (70-100); MAGNESIUM LEVEL 2.5 MG/DL (1.8-2.4); POTASSIUM SERUM 4.9 MEQ/L (3.5-5.1); SODIUM LEVEL 141 MEQ/L (136-145)
[2021-04-13] MEDS: TIOTROPIUM INHALER/CAPSULE (SPIRIVA) INH SCH (07:52)
[2021-04-13] MEDS: ADVAIR HFA 115/21MCG INHALER INH SCH ×2 (07:52→20:00)
[2021-04-13] MEDS: FLUTICASONE PROP 0.05% NASAL SPRAY 16 GM (FLONASE) NARES SCH (08:04)
[2021-04-13] MEDS: HYDROCORTISONE 10 MG TAB PO SCH ×2 (08:05→20:10)
[2021-04-13] MEDS: TORSEMIDE 20 MG TAB PO SCH ×2 (08:06→17:16)
[2021-04-13] MEDS: LACTOBACILLUS ACIDOPHILUS CAP (BACID) PO SCH ×4 (08:06→20:11)
[2021-04-13] MEDS: APIXABAN 5 MG TAB (ELIQUIS) PO SCH ×2 (08:07→20:12)
[2021-04-13] MEDS: MORPHINE 15 MG SA TAB PO SCH ×2 (08:07→20:11)
[2021-04-13] MEDS: ASCORBIC ACID 500 MG TAB PO SCH (08:08)
[2021-04-13] MEDS: busPIRone 5 MG TAB PO SCH ×2 (08:08→20:11)
[2021-04-13] MEDS: FERROUS GLUCONATE 324 MG TAB PO SCH (08:08)
[2021-04-13] MEDS: OMEPRAZOLE 20 MG CAP PO SCH (08:09)
[2021-04-13] MEDS: PERCOCET 5MG/325MG TAB PO PRN ×2 (10:05→16:34)
[2021-04-13] MEDS: ACETAMINOPHEN 500 MG TAB PO PRN ×2 (13:28→20:12)
[2021-04-13] MEDS: metFORMIN (GLUCOPHAGE) 1000 MG TABLET PO SCH ×2 (13:28→20:10)
[2021-04-13] MEDS: rOPINIRole 1MG TAB PO SCH ×2 (17:16→20:11)
[2021-04-13] MEDS: traZODone 100 MG TAB PO SCH (20:10)
[2021-04-14] MEDS: LEVALBUTEROL 1.25 MG/0.5 ML CONCENTRATE NEB INH SCH ×6 (04:00→23:24)
[2021-04-14 05:17] VITALS: BP 113/45
[2021-04-14] MEDS: PERCOCET 5MG/325MG TAB PO PRN ×3 (05:41→17:29)
[2021-04-14 06:04] LABS: BASO # 0.1 10^3/uL (0.0-0.2); BASO % 0.8 % (0.0-1.0); EOS # 0.2 10^3/uL (0.0-0.5); EOS % 1.8 % (0.0-3.0); HEMATOCRIT 31.9 % (36.0-47.0); HEMOGLOBIN 9.5 g/dl (12.0-15.5); LYMPH % 19.6 % (24.0-44.0); MEAN CORPUSCULAR HEMOGLOBIN 25.7 pg (27.0-33.0); MEAN CORPUSCULAR HGB CONC 29.8 g/dl (32.0-36.5); MEAN CORPUSCULAR VOLUME 86.2 fl (80.0-96.0); MONO # 1.2 10^3/uL (0.0-0.8); MONO % 11.3 % (2.0-8.0); NEUTROPHILS # 6.8 10^3/uL (1.5-8.5); PLATELET COUNT, AUTOMATED 584 10^3/uL (150-450); WHITE BLOOD COUNT 10.3 10^3/uL (4.0-10.0)
[2021-04-14 06:33] LABS: BLOOD UREA NITROGEN 20 MG/DL (7-18); CALCIUM LEVEL 8.3 MG/DL (8.8-10.2); CARBON DIOXIDE LEVEL 31 MEQ/L (21-32); CHLORIDE LEVEL 100 MEQ/L (98-107); CREATININE FOR GFR 0.78 MG/DL (0.55-1.30); GLOMERULAR FILTRATION RATE > 60.0 (>39); GLUCOSE, FASTING 158 MG/DL (70-100); MAGNESIUM LEVEL 1.7 MG/DL (1.8-2.4); POTASSIUM SERUM 3.9 MEQ/L (3.5-5.1); SODIUM LEVEL 138 MEQ/L (136-145)
[2021-04-14] MEDS ORDERED: MAG SULF 1GM/100ML (MAG RUN) 1 GM in IV 1 EA IV ONE (07:30)
[2021-04-14] MEDS: ADVAIR HFA 115/21MCG INHALER INH SCH ×2 (07:49→20:02)
[2021-04-14] MEDS: TIOTROPIUM INHALER/CAPSULE (SPIRIVA) INH SCH (07:49)
[2021-04-14] MEDS: TORSEMIDE 20 MG TAB PO SCH ×2 (09:00→17:28)
[2021-04-14] MEDS: HYDROCORTISONE 10 MG TAB PO SCH ×2 (09:07→21:01)
[2021-04-14] MEDS: MORPHINE 15 MG SA TAB PO SCH ×2 (09:07→21:02)
[2021-04-14] MEDS: busPIRone 5 MG TAB PO SCH ×2 (09:08→20:59)
[2021-04-14] MEDS: LACTOBACILLUS ACIDOPHILUS CAP (BACID) PO SCH ×4 (09:08→21:01)
[2021-04-14] MEDS: metFORMIN (GLUCOPHAGE) 1000 MG TABLET PO SCH ×2 (09:09→21:01)
[2021-04-14] MEDS: ASCORBIC ACID 500 MG TAB PO SCH (09:11)
[2021-04-14] MEDS: OMEPRAZOLE 20 MG CAP PO SCH (09:11)
[2021-04-14] MEDS: AMIODARONE 200 MG TAB (PACERONE) PO SCH (09:12)
[2021-04-14] MEDS: APIXABAN 5 MG TAB (ELIQUIS) PO SCH ×2 (09:13→20:59)
[2021-04-14] MEDS: FERROUS GLUCONATE 324 MG TAB PO SCH (09:13)
[2021-04-14] MEDS: MAGNESIUM OXIDE 400MG TAB (MAG-OX) PO SCH ×2 (09:13→20:59)
[2021-04-14] MEDS: FLUTICASONE PROP 0.05% NASAL SPRAY 16 GM (FLONASE) NARES SCH (09:15)
[2021-04-14] MEDS: ACETAMINOPHEN 500 MG TAB PO PRN ×2 (13:43→17:28)
[2021-04-14] MEDS: rOPINIRole 1MG TAB PO SCH ×2 (17:28→21:01)
[2021-04-14] MEDS: traZODone 100 MG TAB PO SCH (20:59)
[2021-04-15] MEDS: LEVALBUTEROL 1.25 MG/0.5 ML CONCENTRATE NEB INH SCH ×6 (04:31→23:55)
[2021-04-15 06:00] VITALS: BP 115/62
[2021-04-15] MEDS: PERCOCET 5MG/325MG TAB PO PRN ×2 (06:26→17:57)
[2021-04-15 07:28] LABS: BASO # 0.1 10^3/uL (0.0-0.2); BASO % 0.6 % (0.0-1.0); EOS # 0.2 10^3/uL (0.0-0.5); EOS % 1.6 % (0.0-3.0); HEMATOCRIT 32.8 % (36.0-47.0); HEMOGLOBIN 9.8 g/dl (12.0-15.5); LYMPH # 1.8 10^3/uL (1.5-5.0); LYMPH % 17.6 % (24.0-44.0); MEAN CORPUSCULAR HEMOGLOBIN 25.5 pg (27.0-33.0); MEAN CORPUSCULAR HGB CONC 29.9 g/dl (32.0-36.5); MEAN CORPUSCULAR VOLUME 85.2 fl (80.0-96.0); MONO # 1.2 10^3/uL (0.0-0.8); MONO % 11.9 % (2.0-8.0); NEUTROPHILS # 6.8 10^3/uL (1.5-8.5); NEUTROPHILS % 67.8 % (36.0-66.0); PLATELET COUNT, AUTOMATED 550 10^3/uL (150-450); RED BLOOD COUNT 3.85 10^6/uL (4.00-5.40)
[2021-04-15] MEDS: TIOTROPIUM INHALER/CAPSULE (SPIRIVA) INH SCH (07:43)
[2021-04-15] MEDS: ADVAIR HFA 115/21MCG INHALER INH SCH ×2 (07:43→20:23)
[2021-04-15 07:53] LABS: BLOOD UREA NITROGEN 22 MG/DL (7-18); CALCIUM LEVEL 8.5 MG/DL (8.8-10.2); CARBON DIOXIDE LEVEL 32 MEQ/L (21-32); CHLORIDE LEVEL 99 MEQ/L (98-107); CREATININE FOR GFR 0.72 MG/DL (0.55-1.30); GLOMERULAR FILTRATION RATE > 60.0 (>39); GLUCOSE, FASTING 110 MG/DL (70-100); MAGNESIUM LEVEL 1.9 MG/DL (1.8-2.4); POTASSIUM SERUM 4.1 MEQ/L (3.5-5.1); SODIUM LEVEL 138 MEQ/L (136-145)
[2021-04-15] MEDS: TORSEMIDE 20 MG TAB PO SCH ×2 (09:00→17:00)
[2021-04-15] MEDS: HumaLOG INSULIN (NovoLOG) PER UNIT SC SCH ×4 (09:14→20:54)
[2021-04-15] MEDS: HYDROCORTISONE 10 MG TAB PO SCH ×2 (09:14→21:09)
[2021-04-15] MEDS: LACTOBACILLUS ACIDOPHILUS CAP (BACID) PO SCH ×4 (09:14→21:09)
[2021-04-15] MEDS: metFORMIN (GLUCOPHAGE) 1000 MG TABLET PO SCH ×2 (09:15→20:55)
[2021-04-15] MEDS: MAGNESIUM OXIDE 400MG TAB (MAG-OX) PO SCH ×2 (09:15→21:08)
[2021-04-15] MEDS: busPIRone 5 MG TAB PO SCH ×2 (09:15→21:08)
[2021-04-15] MEDS: ASCORBIC ACID 500 MG TAB PO SCH (09:15)
[2021-04-15] MEDS: FERROUS GLUCONATE 324 MG TAB PO SCH (09:15)
[2021-04-15] MEDS: OMEPRAZOLE 20 MG CAP PO SCH (09:15)
[2021-04-15] MEDS: APIXABAN 5 MG TAB (ELIQUIS) PO SCH ×2 (09:15→21:08)
[2021-04-15] MEDS: FLUTICASONE PROP 0.05% NASAL SPRAY 16 GM (FLONASE) NARES SCH (09:57)
[2021-04-15] MEDS: MORPHINE 15 MG SA TAB PO SCH ×2 (09:57→21:09)
[2021-04-15] MEDS: rOPINIRole 1MG TAB PO SCH ×2 (17:57→21:09)
[2021-04-15] MEDS: traZODone 100 MG TAB PO SCH (21:08)
[2021-04-16] MEDS ORDERED: LOPERAMIDE 2 MG CAPLET PO PRN (02:55)
[2021-04-16] MEDS: PERCOCET 5MG/325MG TAB PO PRN ×2 (03:27→12:41)
[2021-04-16] MEDS: LEVALBUTEROL 1.25 MG/0.5 ML CONCENTRATE NEB INH SCH ×5 (03:47→20:42)
[2021-04-16 06:00] VITALS: BP 112/55
[2021-04-16 06:12] LABS: BASO # 0.1 10^3/uL (0.0-0.2); BASO % 0.7 % (0.0-1.0); EOS # 0.2 10^3/uL (0.0-0.5); EOS % 2.1 % (0.0-3.0); HEMATOCRIT 32.5 % (36.0-47.0); HEMOGLOBIN 9.7 g/dl (12.0-15.5); LYMPH # 1.5 10^3/uL (1.5-5.0); LYMPH % 15.8 % (24.0-44.0); MEAN CORPUSCULAR HEMOGLOBIN 25.5 pg (27.0-33.0); MEAN CORPUSCULAR HGB CONC 29.8 g/dl (32.0-36.5); MEAN CORPUSCULAR VOLUME 85.5 fl (80.0-96.0); MONO # 1.2 10^3/uL (0.0-0.8); MONO % 12.4 % (2.0-8.0); NEUTROPHILS # 6.6 10^3/uL (1.5-8.5); NEUTROPHILS % 68.4 % (36.0-66.0); PLATELET COUNT, AUTOMATED 513 10^3/uL (150-450); WHITE BLOOD COUNT 9.7 10^3/uL (4.0-10.0)
[2021-04-16 06:34] LABS: BLOOD UREA NITROGEN 19 MG/DL (7-18); CALCIUM LEVEL 7.9 MG/DL (8.8-10.2); CARBON DIOXIDE LEVEL 29 MEQ/L (21-32); CHLORIDE LEVEL 101 MEQ/L (98-107); CREATININE FOR GFR 0.54 MG/DL (0.55-1.30); GLOMERULAR FILTRATION RATE > 60.0 (>39); GLUCOSE, FASTING 122 MG/DL (70-100); POTASSIUM SERUM 3.7 MEQ/L (3.5-5.1); SODIUM LEVEL 135 MEQ/L (136-145)
[2021-04-16] MEDS: HumaLOG INSULIN (NovoLOG) PER UNIT SC SCH ×4 (07:30→21:00)
[2021-04-16] MEDS: TIOTROPIUM INHALER/CAPSULE (SPIRIVA) INH SCH (07:51)
[2021-04-16] MEDS: ADVAIR HFA 115/21MCG INHALER INH SCH ×2 (07:51→20:42)
[2021-04-16] MEDS: LACTOBACILLUS ACIDOPHILUS CAP (BACID) PO SCH ×4 (08:37→20:54)
[2021-04-16] MEDS: HYDROCORTISONE 10 MG TAB PO SCH ×2 (08:38→20:56)
[2021-04-16] MEDS: MORPHINE 15 MG SA TAB PO SCH ×2 (08:40→20:58)
[2021-04-16] MEDS: metFORMIN (GLUCOPHAGE) 1000 MG TABLET PO SCH ×2 (08:41→20:57)
[2021-04-16] MEDS: FERROUS GLUCONATE 324 MG TAB PO SCH (08:41)
[2021-04-16] MEDS: busPIRone 5 MG TAB PO SCH ×2 (08:41→20:55)
[2021-04-16] MEDS: APIXABAN 5 MG TAB (ELIQUIS) PO SCH ×2 (08:41→20:57)
[2021-04-16] MEDS: MAGNESIUM OXIDE 400MG TAB (MAG-OX) PO SCH ×2 (08:42→20:57)
[2021-04-16] MEDS: ASCORBIC ACID 500 MG TAB PO SCH (08:43)
[2021-04-16] MEDS: TORSEMIDE 20 MG TAB PO SCH ×2 (08:43→17:27)
[2021-04-16] MEDS: OMEPRAZOLE 20 MG CAP PO SCH (08:44)
[2021-04-16] MEDS: FLUTICASONE PROP 0.05% NASAL SPRAY 16 GM (FLONASE) NARES SCH (08:44)
[2021-04-16] MEDS: rOPINIRole 1MG TAB PO SCH ×2 (17:28→20:58)
[2021-04-16] MEDS: traZODone 100 MG TAB PO SCH (20:56)
[2021-04-17] MEDS: LEVALBUTEROL 1.25 MG/0.5 ML CONCENTRATE NEB INH SCH ×3 (00:20→07:43)
[2021-04-17] MEDS: PERCOCET 5MG/325MG TAB PO PRN (04:43)
[2021-04-17 06:00] VITALS: BP 110/57
[2021-04-17 06:28] LABS: BASO # 0.1 10^3/uL (0.0-0.2); BASO % 0.8 % (0.0-1.0); EOS # 0.1 10^3/uL (0.0-0.5); EOS % 1.3 % (0.0-3.0); HEMATOCRIT 32.6 % (36.0-47.0); HEMOGLOBIN 9.7 g/dl (12.0-15.5); LYMPH # 1.6 10^3/uL (1.5-5.0); LYMPH % 17.4 % (24.0-44.0); MEAN CORPUSCULAR HEMOGLOBIN 25.7 pg (27.0-33.0); MEAN CORPUSCULAR HGB CONC 29.8 g/dl (32.0-36.5); MEAN CORPUSCULAR VOLUME 86.2 fl (80.0-96.0); MONO % 10.9 % (2.0-8.0); NEUTROPHILS # 6.5 10^3/uL (1.5-8.5); PLATELET COUNT, AUTOMATED 526 10^3/uL (150-450); RED BLOOD COUNT 3.78 10^6/uL (4.00-5.40); WHITE BLOOD COUNT 9.5 10^3/uL (4.0-10.0)
[2021-04-17 06:46] LABS: BLOOD UREA NITROGEN 17 MG/DL (7-18); CALCIUM LEVEL 8.3 MG/DL (8.8-10.2); CARBON DIOXIDE LEVEL 32 MEQ/L (21-32); CHLORIDE LEVEL 98 MEQ/L (98-107); CREATININE FOR GFR 0.64 MG/DL (0.55-1.30); GLOMERULAR FILTRATION RATE > 60.0 (>39); GLUCOSE, FASTING 103 MG/DL (70-100); MAGNESIUM LEVEL 1.8 MG/DL (1.8-2.4); POTASSIUM SERUM 4.1 MEQ/L (3.5-5.1); SODIUM LEVEL 136 MEQ/L (136-145)
[2021-04-17] MEDS: HumaLOG INSULIN (NovoLOG) PER UNIT SC SCH (07:29)
[2021-04-17] MEDS: ADVAIR HFA 115/21MCG INHALER INH SCH (07:43)
[2021-04-17] MEDS: TIOTROPIUM INHALER/CAPSULE (SPIRIVA) INH SCH (07:43)
[2021-04-17] MEDS: LACTOBACILLUS ACIDOPHILUS CAP (BACID) PO SCH (08:16)
[2021-04-17] MEDS: FERROUS GLUCONATE 324 MG TAB PO SCH (08:16)
[2021-04-17] MEDS: HYDROCORTISONE 10 MG TAB PO SCH (08:17)
[2021-04-17] MEDS: metFORMIN (GLUCOPHAGE) 1000 MG TABLET PO SCH (08:17)
[2021-04-17] MEDS: OMEPRAZOLE 20 MG CAP PO SCH (08:17)
[2021-04-17] MEDS: TORSEMIDE 20 MG TAB PO SCH (08:17)
[2021-04-17 08:18] VITALS: BP 124/69
[2021-04-17] MEDS: MORPHINE 15 MG SA TAB PO SCH (08:18)
[2021-04-17] MEDS: APIXABAN 5 MG TAB (ELIQUIS) PO SCH (08:18)
[2021-04-17] MEDS: MAGNESIUM OXIDE 400MG TAB (MAG-OX) PO SCH (08:18)
[2021-04-17] MEDS: AMIODARONE 200 MG TAB (PACERONE) PO SCH (08:18)
[2021-04-17] MEDS: busPIRone 5 MG TAB PO SCH (08:18)
[2021-04-17] MEDS: ASCORBIC ACID 500 MG TAB PO SCH (08:18)
[2021-04-17] MEDS: FLUTICASONE PROP 0.05% NASAL SPRAY 16 GM (FLONASE) NARES SCH (08:21)
[2021-04-17] MEDS ORDERED: MORP15TASA PO (09:06)
--- NOTE | 2021-04-17 11:42 | DS.PDOC ---
Discharge Summary General Date of Admission April 06, 2021 at 15:33 Date of Discharge 04/17/2021 Discharge Summary PROCEDURES PERFORMED DURING STAY: [None]. ADMITTING DIAGNOSES / DISCHARGE DIAGNOSES: Early diverticulitis Compression fracture with chronic back pain Chronic A. fib Chronic Diastolic CHF s/p Hypomagnesemia NIMDD2 COPD Iron deficiency anemia Adrenal insufficiency RLS Depression / Insomnia GERD DVT prophylaxis COMPLICATIONS/CHIEF COMPLAINT: Weakness HISTORY OF PRESENT ILLNESS: Patient is a 76-year-old female with a PMHx of Chronic A. fib (on Amiodarone / Eliquis), Diastolic CHF, NIMDD2, COPD, Chronic back pain, Thoracic compression fractures, Iron deficiency anemia, Adrenal insufficiency (on Hydrocortisone / Fludrocortisone), RLS , who presented to the emergency room be cause of deconditioning and inability to ambulate, unable to perform activities of daily living. Patient was admitted to the hospital service for further evaluation and treatment. Patient was seen and examined at the bedside. Patient reports her back pain is relatively improved. Denies any nausea, vomiting or abdominal pain. Has been out of bed and working with physical therapy. Denies any urinary discomfort or diarrhea. HOSPITAL COURSE: Early diverticulitis - Is not experiencing any nausea, vomiting or abdominal pain - No diarrhea since admission - No abdominal tenderness - No leukocytosis / CRP had improved - c/w Lactobacillus - s/p Course of antibiotics with Augmentin - Will have outpatient follow-up with primary care provider within the next 7 days Compression fracture with chronic back pain - Patient has reported inability to perform ADLs - Imaging noted above - c/w MS Contin and Oxycodone - c/w TLSO brace - c/w PT and OT - patient will continue rehabilitation at [facility] - Will have outpatient follow-up with orthopedic surgery within the next 7 days Chronic A. fib - c/w rate / rhythm control with Amiodarone and Diltiazem - c/w full anticoagulation with Eliquis Chronic Diastolic CHF - Currently does not appear to be in any decompensation - c/w Torsemide s/p Hypomagnesemia NIMDD2 - c/w ISS COPD - Patient is currently on 2 L of nasal cannula oxygen, reportedly uses a home - c/w inhaled therapy as ordered Iron deficiency anemia Adrenal insufficiency - c/w Hydrocortisone RLS - c/w Ropinirole Depression / Insomnia - c/w Buspirone / Trazodone GERD - c/w Omeprazole DVT prophylaxis - c/w full anticoagulation with Eliquis DISCHARGE MEDICATIONS: Please see below. ALLERGIES: Please see below. PHYSICAL EXAMINATION ON DISCHARGE: Vitals (See below) General: Sitting up in chair, appears to be comfortable without any acute distress, is oriented to person, place and time HEENT: NC, AT CVS: +S1S2 Lungs: Fair air entry b/l, no wheezing, rales or rhonchi Abdomen: Soft, nondistended and nontender Extremities: No evidence of edema, - Calf tenderness LABORATORY DATA: Please see below. IMAGING: Abdomen XR 04/06: 1. Suspected acute on chronic pulmonary parenchymal changes. 2. Bowel gas pattern suggests ileus and possible underlying enterocolitis cannot be excluded. CT abdomen / pelvis 04/06: 1. Appearance of L3 is stable since the prior study of 2017 although the compression deformity at L1 represents an interval change. 2. There are gallstones present. No evidence of cholecystitis demonstrated. 3. There is diffuse pancreatic atrophy. 4. There has been a hysterectomy. 5. Moderate diverticulosis is present in the distal colon. Subtle pericolonic inflammatory changes demonstrated in the mid sigmoid colon, findings which may suggest the presence of mild uncomplicated diverticulitis. 6. Right-sided mild to mild hydroureteronephrosis without obstructing etiology. 7. Increased fecal retention left hemicolon may signify the presence of constipation. CT Chest 04/06: 1. Bibasilar pulmonary parenchymal infiltrates with air bronchograms. Finding may represent atelectasis although clinical correlation to exclude infection suggested. Findings severe of progressed in comparison to the prior study of 03/16/2021. 2. Stable compression deformities of T3 with progression of fractures at T7 and new compression deformities at T8 and L1. 3. There is fusiform dilatation of the ascending thoracic aorta which measures 3.7 cm. maximally. There is no dissection or saccular component. 4. Dilated thoracic esophagus to the GE junction there is minimal wall thick ening. Finding may be related to chronic reflux and or achalasia. Clinical correlation is fluid a distal esophageal neoplasm suggested. 5. There is enlargement of the central pulmonary arteries, findings which can be associated with pulmonary arterial hypertension which should be correlated clinically. 6. There is mild cardiomegaly. 7. Nodular appearance of thyroid gland. Findings are consistent with findings demonstrated on a prior thyroid ultrasound of 08/25/2020. CXR 04/08: Findings suspicious of left lower lobe atelectasis/consolidation and small pleural reaction.. ACTIVITY: [As tolerated]. DISCHARGE PLAN: Follow-up with primary care provider and orthopedic surgery within the next 7 days Remain compliant with treatment plan and medications Return to the ER if you experience any problems DISPOSITION: [facility]. DISCHARGE CONDITION: [Stable]. TIME SPENT ON DISCHARGE: 35 minutes. Vital Signs/I&Os Vital Signs Date Time Temp Pulse Resp B/P (MAP) Pulse Ox O2 Delivery O2 Flow Rate FiO2 04/17/21 08:18 20 04/17/21 08:18 84 124/69 04/17/21 06:00 98.5 95 Room Air 04/16/21 22:00 2.0 I&O- Last 24 Hours up to 6 AM 04/17/21 06:00 Intake Total 2310 ml Output Total 1375 ml Balance 935 ml Laboratory Data Labs 24H Laboratory Tests 2 04/16/21 11:55: Bedside Glucose (Misc Panel) 184H 04/16/21 16:55: Bedside Glucose (Misc Panel) 146H 04/16/21 21:09: Coronavirus (COVID-19)(PCR) NEGATIVE 04/16/21 21:49: Bedside Glucose (Misc Panel) 148H 04/17/21 05:45: Immature Granulocyte % (Auto) 0.6, Neutrophils (%) (Auto) 69.0H, Lymphocytes (%) (Auto) 17.4L, Monocytes (%) (Auto) 10.9H, Eosinophils (%) (Auto) 1.3, Basophils (%) (Auto) 0.8, Neutrophils # (Auto) 6.5, Lymphocytes # (Auto) 1.6, Monocytes # (Auto) 1.0H, Eosinophils # (Auto) 0.1, Basophils # (Auto) 0.1, Nucleated Red Blood Cells % (auto) 0.0, Anion Gap 6L, Glomerular Filtration Rate > 60.0, Calcium Level 8.3L, Magnesium Level 1.8 CBC/BMP Laboratory Tests 04/17/21 05:45 FSBS Laboratory Tests Test 04/16/21 11:55 04/16/21 16:55 04/16/21 21:49 Range/Units Bedside Glucose (Misc Panel) 184 146 148 83-110 MG/DL Discharge Medications Scheduled Alendronate Sodium (Alendronate Sodium) 70 Mg Tablet, 70 MG PO QWEEK, (Reported) SATURDAY Amiodarone HCl (Amiodarone HCl) 200 Mg Tablet, 200 MG PO 3XW, (Reported) SATURDAY, SATURDAY AND SATURDAY Amoxicillin/Potassium Clav (Amox-Clav 875-125 mg Tablet) 1 Each Tablet, 875 MG PO BID Apixaban (Eliquis) 5 Mg Tablet, 5 MG PO BID, (Reported) Ascorbic Acid (Vitamin C) 500 Mg Tablet, 500 MG PO DAILY, (Reported) Buspirone HCl (Buspirone HCl) 5 Mg Tablet, 5 MG PO BID, (Reported) Ferrous Gluconate (Ferrous Gluconate) 324 Mg Tablet, 324 MG PO DAILY, (Reported) Fluticasone Propionate (Fluticasone Propionate) 16 Gm [place].susp, 2 SPRAYS NARES DAILY, (Reported) Fluticasone/Umeclidin/Vilanter (Trelegy Ellipta 100-62.5-25) 1 Each Blst.w.dev, 1 PUFF INH DAILY, (Reported) Hydrocortisone (Hydrocortisone) 5 Mg Tablet, 15 MG PO QAM, (Reported) Hydrocortisone (Hydrocortisone) 5 Mg Tablet, 10 MG PO QHS, (Reported) L.acidoph/L.bulg/B.bif/S.therm (Nidia-Bid Caplet) 1 Each Tablet, 1 EA PO WMHS Metformin HCl (Metformin HCl) 1,000 Mg Tablet, 1,000 MG PO BID, (Reported) Morphine Sulfate (Morphine Sulfate ER) 15 Mg Tablet.er, 15 MG PO BID Omeprazole (Omeprazole) 40 Mg Capsule.dr, 40 MG PO DAILY, (Reported) Ropinirole HCl (Ropinirole HCl) 1 Mg Tablet, 1 MG PO BID, (Reported) DINNER & BEDTIME Torsemide (Torsemide) 20 Mg Tablet, 40 MG PO BID, (Reported) Trazodone HCl (Trazodone HCl) 50 Mg Tablet, 100 MG PO QHS, (Reported) dilTIAZem HCl (Diltiazem 24Hr Cd) 120 Mg Cap.er.24h, 120 MG PO BID, (Reported) Scheduled PRN Acetaminophen (Acetaminophen) 500 Mg Tablet, 500 MG PO Q4H PRN for PAIN, (Reported) Albuterol Sulfate (Ventolin Hfa) 18 Gm Hfa.aer.ad, 2 PUFF INH QID PRN for SHORTNESS OF BREATH, (Reported) Diclofenac Sodium (Voltaren) 100 Gm Gel..gram., 4 GRAM TOP QID PRN for PAIN, (Reported) APPLY TO PAINFUL AREAS Ipratropium/Albuterol Sulfate (Iprat-Albut 0.5-3(2.5) mg/3 ml) 3 Ml Ampul.neb, 3 ML INH Q4H PRN for SHORTNESS OF BREATH, (Reported) Nitroglycerin (Nitrostat) 0.4 Mg Tab.subl, 0.4 MG SL NITRO PRN for CHEST PAIN, (Reported) Oxycodone HCl (Oxycodone HCl) 5 Mg Tablet, 5 MG PO QID PRN for PAIN, (Reported) Allergies Coded Allergies: propoxyphene (Verified Allergy, Intermediate, hives, 08/24/20) SALVADOR LANGFORD MD Apr 17, 2021 11:42
== END 2021-04-17 11:05 | DRG 560 ==
LOC: M ED 11:23 → M ED INP 15:33 → ENRESERV 16:11 → M MS5PR 18:21
PROVIDERS: ADMIT General Practice; ATTEND Internal Medicine
DX: S22.030D Wedge compression fracture of third thoracic vertebra, subsequent encounter for fracture with routine healing (principal); K57.92 Diverticulitis of intestine, part unspecified, without perforation or abscess without bleeding; I50.32 Chronic diastolic (congestive) heart failure; I48.20 Chronic atrial fibrillation, unspecified; E27.40 Unspecified adrenocortical insufficiency; S22.060D Wedge compression fracture of T7-T8 vertebra, subsequent encounter for fracture with routine healing; E11.9 Type 2 diabetes mellitus without complications; J44.9 Chronic obstructive pulmonary disease, unspecified; I27.20 Pulmonary hypertension, unspecified; R53.81 Other malaise; E83.42 Hypomagnesemia; F32.9 Major depressive disorder, single episode, unspecified; G47.30 Sleep apnea, unspecified; K21.9 Gastro-esophageal reflux disease without esophagitis; D50.9 Iron deficiency anemia, unspecified; G25.81 Restless legs syndrome; Z79.899 Other long term (current) drug therapy; Z88.8 Allergy status to other drugs, medicaments and biological substances; I36.0 Nonrheumatic tricuspid (valve) stenosis; Z86.73 Personal history of transient ischemic attack (TIA), and cerebral infarction without residual deficits; W18.30XD Fall on same level, unspecified, subsequent encounter; Y92.009 Unspecified place in unspecified non-institutional (private) residence as the place of occurrence of the external cause; R19.7 Diarrhea, unspecified; Z79.01 Long term (current) use of anticoagulants

== ENCOUNTER → 2021-04-20 | Outpatient (REF) | payer MEDICARE, MEDICAID ==
[~2021-04-20] MED LIST changes: +AMOX875T2 PO; +C 50TAB PO; +DILT120C89 PO; +FERR324T21 PO; +MORP15TASA PO; +OMEP-221 PO
[2021-04-20 21:26] LABS: CALCIUM LEVEL 8.4 MG/DL (8.8-10.2); CREATININE FOR GFR 1.18 MG/DL (0.55-1.30); GLOMERULAR FILTRATION RATE 47.3 (>39); HEMATOCRIT 36.1 % (36.0-47.0); HEMOGLOBIN 10.8 g/dl (12.0-15.5); MEAN CORPUSCULAR HEMOGLOBIN 25.9 pg (27.0-33.0); MEAN CORPUSCULAR HGB CONC 29.9 g/dl (32.0-36.5); MEAN CORPUSCULAR VOLUME 86.6 fl (80.0-96.0); PLATELET COUNT, AUTOMATED 519 10^3/uL (150-450); RED BLOOD COUNT 4.17 10^6/uL (4.00-5.40); WHITE BLOOD COUNT 17.3 10^3/uL (4.0-10.0)
== END ==
LOC: M RAD 20:55
PROVIDERS: ATTEND Internal Medicine
DX: R06.02 Shortness of breath (principal)

== ENCOUNTER → 2021-04-21 | Outpatient (REF) | payer MEDICARE, MEDICAID ==
--- NOTE | 2021-04-21 15:33 | REPPI ---
INDICATION: COPD [id number]. COMPARISON: 04/08/2021 TECHNIQUE: AP FINDINGS: Once again, there is cardiomegaly accentuated by technique. Once again, there is evidence of interstitial fibrotic change. No acute patchy parenchymal opacities or pleural effusions have developed. There is chronic left CP angle blunting. There is no change in the osseous structures. IMPRESSION: Stable appearing chronic changes. Correlate clinically to rule out the possibility of acute disease superimposed upon chronic change. <Electronically signed by Sharad Stahl > 04/21/21 [id number]
== END ==
PROVIDERS: ATTEND Internal Medicine
DX: I51.7 Cardiomegaly (principal); R06.02 Shortness of breath; J44.9 Chronic obstructive pulmonary disease, unspecified

== ENCOUNTER → 2021-04-21 | Outpatient (REF) | payer MEDICARE, MEDICAID ==
--- NOTE | 2021-04-21 17:54 | REPPI ---
INDICATION: KNEE PAIN. COMPARISON: Comparison left knee radiographs are from October 25, 2020.. TECHNIQUE: AP and lateral views. FINDINGS: AP and lateral views of the left knee demonstrate diffuse osteopenia.. No fracture or subluxation is seen. No opaque foreign body noted. There is soft tissue calcification/ossification in the soft tissues anteromedial to the distal femur unchanged from the comparison study of October 25, 2020. There is advanced 3 compartment osteoarthritis of the knee with severe joint space narrowing in the medial compartment sclerosis and osteophyte formation as well. There is patellofemoral narrowing and spurring. There is soft tissue calcification at the posterior joint line medially which may well be a loose body. This was observed previously. The anteromedial calcific densities could be suprapatellar bursal loose bodies as well. There is some chondrocalcinosis in the lateral compartment. IMPRESSION: No acute abnormality. 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 Diffuse osteopenia.. <Electronically signed by Lex Mcrae > 04/21/21 [id number]
== END ==
PROVIDERS: ATTEND Internal Medicine
DX: M17.12 Unilateral primary osteoarthritis, left knee (principal); I51.7 Cardiomegaly; R06.02 Shortness of breath; J44.9 Chronic obstructive pulmonary disease, unspecified

== ENCOUNTER → 2021-04-25 | Outpatient (REF) | payer MEDICARE ==
[~2021-04-25] MED LIST changes: +ALB2.5NEB INH; +ALLO100T PO; +BACITAB PO; +BACL5TAB2 PO; +CALC1CAP31 PO; +GLUC1KIT IM; +LIDO1ADH16 TOP; +LIDO1ADH16 TP; +NARC1SPR; +TRAZ-257 PO
== END ==
PROVIDERS: ATTEND Internal Medicine
DX: R07.81 Pleurodynia (principal); Z53.8 Procedure and treatment not carried out for other reasons

== ENCOUNTER → 2021-04-25 | Outpatient (CLI) | payer MEDICARE, MEDICAID ==
[~2021-04-25] MED LIST changes: -ALB2.5NEB INH; -ALLO100T PO; -BACITAB PO; -BACL5TAB2 PO; -CALC1CAP31 PO; -GLUC1KIT IM; -LIDO1ADH16 TOP; -LIDO1ADH16 TP; -NARC1SPR; -TRAZ-257 PO
--- NOTE | 2021-04-25 17:27 | REP ---
INDICATION: L RIB PAIN. COMPARISON: 03/20/2021. TECHNIQUE: Four views left ribs, frontal view chest. FINDINGS: Stable old healed fractures of a few left ribs are again noted unchanged. No acute fracture or bone lesion is seen. There is an old fracture of the proximal left humerus. There is cardiomegaly again noted. There is calcification of the thoracic aorta. The mediastinal silhouette is unchanged. The lungs are unchanged in appearance. IMPRESSION: No change since prior study. No evidence of acute rib fracture. <Electronically signed by Ace Lester > 04/25/21 [id number]
== END ==
LOC: M LAB 16:14
PROVIDERS: ATTEND Internal Medicine
DX: R07.82 Intercostal pain (principal)

== ENCOUNTER → 2021-05-02 | Outpatient (REF) | payer MEDICARE, MEDICAID | PROVIDERS: ATTEND Internal Medicine | DX: M25.522 Pain in left elbow (principal) ==

== ENCOUNTER 2021-05-03 13:47 | Emergency (ER) | payer MEDICARE, OTHER ==
[~2021-05-03] VITALS: Ht 154.9 cm; Wt 50.9 kg
[2021-05-03] MEDS ORDERED: MORPHINE 4 MG/ML 1ML VIAL/SYRINGE (J2270) IV ONE (14:35)
--- NOTE | 2021-05-03 15:21 | REP ---
INDICATION: bilateral posterior rib pain; ?trauma COMPARISON: 04/06/2021 the latest prior with multiple older exams as well. TECHNIQUE: Limited noncontrast enhanced standard helical technique with the patient on the right side. FINDINGS: Limited evaluation of the mediastinum and pulmonary braden shows no significant change from the prior exam. There is no evidence of a pleural or pericardial effusion. Limited examination of the imaged upper abdomen shows a nonobstructing right nephrolith and 2 left nephroliths which likely represent james-vascular vascular calcifications. These are unchanged. Bone window technique throughout the examination shows numerous bilateral mixed density rib lesions obscured by artifact so as and exact comparison to the prior exam cannot be made. Grossly, the appear unchanged. There are also multiple thoracic vertebral body compression fractures of various grades and again difficult to evaluate at or compared to the prior exam due to the motion artifact. There appears to be a significant anterolisthesis of T10 on T11 but there is extreme motion artifact at that level. I cannot dismiss the possibility of an acute fracture at that level. Evaluation of the lung oshea shows significant motion artifact obscuring the fine detail. No gross abnormality seem to have developed since last exam. There is no change in appearance of the thoracic aorta which appears ectatic but stable go to improve IMPRESSION: 1. Multiple osseous abnormalities and possible abnormalities as described above. A repeat exam with complete elimination of motion artifact is recommended. 2. Limited evaluation of the lung oshea showing no gross abnormalities, however, repeat examination with elimination of motion artifact is recommended. 3. Other findings as described above. <Electronically signed by Sharad Stahl > 05/03/21 [id number]
--- NOTE | 2021-05-03 15:23 | REP ---
INDICATION: left elbow pain; ?trauma. COMPARISON: None. TECHNIQUE: Four views of the left elbow are provided. FINDINGS: Four views of the left elbow demonstrate diffuse osteopenia. There is a well corticated ossicle adjacent to the medial epicondyle in the periarticular soft tissues. There is coronoid process articular spurring consistent with osteoarthritis. There is no evidence of joint effusion or fracture. There is some olecranon process spurring as well.. . No opaque foreign body noted. IMPRESSION: No acute bony abnormality. Diffuse osteopenia. Accessory ossicle adjacent to the medial epicondyle and coronoid process articular spurring consistent with mild osteoarthritis.. <Electronically signed by Lex Mcrae > 05/03/21 [id number]
[2021-05-03] MEDS ORDERED: PERCOCET 5MG/325MG TAB PO ONE (16:10)
[2021-05-03 18:04] VITALS: BP 99/55
--- NOTE | 2021-05-04 11:57 | ED PDOC ---
Post-Departure Follow-Up radiology report faxed to Karen Eaton MD May 04, 2021 11:56
== END 2021-05-03 18:46 | disposition home or self-care (01) ==
LOC: M ED 13:47
DX: M54.9 Dorsalgia, unspecified (principal); G89.29 Other chronic pain; M19.021 Primary osteoarthritis, right elbow; I11.0 Hypertensive heart disease with heart failure; I25.2 Old myocardial infarction; I48.91 Unspecified atrial fibrillation; J44.9 Chronic obstructive pulmonary disease, unspecified; J45.909 Unspecified asthma, uncomplicated; Z79.2 Long term (current) use of antibiotics; Z79.84 Long term (current) use of oral hypoglycemic drugs; Z79.899 Other long term (current) drug therapy; Z79.51 Long term (current) use of inhaled steroids; Z86.73 Personal history of transient ischemic attack (TIA), and cerebral infarction without residual deficits; Z98.890 Other specified postprocedural states; Z87.891 Personal history of nicotine dependence
CPT/HCPCS: 71250; 73080; 96374; 99284; J2270

== ENCOUNTER → 2021-05-03 | Outpatient (REF) | payer MEDICARE, MEDICAID ==
[2021-05-03 11:23] LABS: HEMOGLOBIN 11.4 g/dl (12.0-15.5); MEAN CORPUSCULAR HEMOGLOBIN 24.9 pg (27.0-33.0); PLATELET COUNT, AUTOMATED 417 10^3/uL (150-450); RED BLOOD COUNT 4.58 10^6/uL (4.00-5.40); WHITE BLOOD COUNT 23.4 10^3/uL (4.0-10.0)
[2021-05-03 11:44] LABS: ERYTHROCYTE SEDIMENTATION RATE 23 mm/hr (0-30)
[2021-05-03 11:51] LABS: ALBUMIN 2.7 GM/DL (3.2-5.2); BILIRUBIN,TOTAL 0.5 MG/DL (0.2-1.0); C REACTIVE PROTEIN QUANTITATIV 31.9 MG/DL (0.00-0.30); CALCIUM LEVEL 6.5 MG/DL (8.8-10.2); CREATININE FOR GFR 1.29 MG/DL (0.55-1.30); GLOMERULAR FILTRATION RATE 42.7 (>39); TOTAL PROTEIN 6.2 GM/DL (6.4-8.2)
== END ==
PROVIDERS: ATTEND Internal Medicine
DX: M25.522 Pain in left elbow (principal)

== ENCOUNTER → 2021-05-03 | Outpatient (REF) | payer MEDICARE, MEDICAID | PROVIDERS: ATTEND Internal Medicine | DX: M54.9 Dorsalgia, unspecified (principal) ==

== ENCOUNTER → 2021-05-03 | Outpatient (CLI) | payer MEDICARE, MEDICAID | LOC: M RAD 12:52 | PROVIDERS: ATTEND Internal Medicine | DX: M54.5 Low back pain (principal) ==

== ENCOUNTER → 2021-05-04 | Outpatient (REF) | payer MEDICARE ==
[2021-05-04 10:05] LABS: HEMOGLOBIN 10.8 g/dl (12.0-15.5); MEAN CORPUSCULAR HEMOGLOBIN 25.4 pg (27.0-33.0); MEAN CORPUSCULAR HGB CONC 30.9 g/dl (32.0-36.5); MEAN CORPUSCULAR VOLUME 82.2 fl (80.0-96.0); PLATELET COUNT, AUTOMATED 408 10^3/uL (150-450); RED BLOOD COUNT 4.26 10^6/uL (4.00-5.40)
[2021-05-04 10:36] LABS: ERYTHROCYTE SEDIMENTATION RATE 35 mm/hr (0-30)
[2021-05-04 10:42] LABS: ALBUMIN 2.4 GM/DL (3.2-5.2); BILIRUBIN,TOTAL 0.3 MG/DL (0.2-1.0); C REACTIVE PROTEIN QUANTITATIV 35.6 MG/DL (0.00-0.30); CALCIUM LEVEL 6.1 MG/DL (8.8-10.2); CK-MB VALUE MASS 3.9 NG/ML (<3.6); CREATININE FOR GFR 1.25 MG/DL (0.55-1.30); GLOMERULAR FILTRATION RATE 44.2 (>39); MB/CK RELATIVE INDEX 1.6 (< OR =4); POTASSIUM SERUM 3.1 MEQ/L (3.5-5.1); TOTAL PROTEIN 5.8 GM/DL (6.4-8.2); TROPONIN I 0.03 NG/ML (< 0.10)
== END ==
PROVIDERS: ATTEND Internal Medicine
DX: M54.9 Dorsalgia, unspecified (principal)

== ENCOUNTER 2021-05-07 18:20 | Inpatient (IN) | payer MEDICARE ==
[~2021-05-07] VITALS: Ht 154.9 cm; Wt 54.7 kg
[2021-05-07] MEDS ORDERED: NS 1,000 ML IV ONE (19:25)
[2021-05-07] MEDS ORDERED: LIDO1ADH16 TP (19:52)
[2021-05-07] MEDS ORDERED: GABA-1171 PO (19:52)
[2021-05-07] MEDS ORDERED: LIDO1ADH16 TOP (19:52)
[2021-05-07] MEDS ORDERED: BACL5TAB2 PO (19:52)
[2021-05-07] MEDS ORDERED: NARC1SPR (19:52)
[2021-05-07 20:07] LABS: BASO % 0.2 % (0.0-1.0); EOS % 0.3 % (0.0-3.0); HEMATOCRIT 35.4 % (36.0-47.0); LYMPH # 1.9 10^3/uL (1.5-5.0); LYMPH % 11.8 % (24.0-44.0); MEAN CORPUSCULAR HEMOGLOBIN 24.9 pg (27.0-33.0); MEAN CORPUSCULAR HGB CONC 31.1 g/dl (32.0-36.5); MEAN CORPUSCULAR VOLUME 80.3 fl (80.0-96.0); MONO # 1.3 10^3/uL (0.0-0.8); MONO % 8.5 % (2.0-8.0); NEUTROPHILS # 12.4 10^3/uL (1.5-8.5); NEUTROPHILS % 78.4 % (36.0-66.0); PLATELET COUNT, AUTOMATED 504 10^3/uL (150-450); RED BLOOD COUNT 4.41 10^6/uL (4.00-5.40); WHITE BLOOD COUNT 15.7 10^3/uL (4.0-10.0)
[2021-05-07] MEDS ORDERED: TRAZ-257 PO (20:21)
[2021-05-07] MEDS ORDERED: ACET-683 PO (20:21)
[2021-05-07] MEDS ORDERED: GLUC1KIT IM (20:21)
[2021-05-07] MEDS ORDERED: DULC10SU2 PR (20:21)
[2021-05-07] MEDS ORDERED: ENEMENE PR (20:21)
[2021-05-07] MEDS ORDERED: ALB2.5NEB INH (20:21)
[2021-05-07] MEDS ORDERED: MILKSUS3 PO (20:21)
[2021-05-07] MEDS ORDERED: BACITAB PO (20:21)
[2021-05-07] MEDS ORDERED: ALLO100T PO (20:21)
[2021-05-07] MEDS ORDERED: ACETAMINOPHEN 325 MG TAB PO ONE (20:35)
--- NOTE | 2021-05-07 20:36 | REPVR ---
PROCEDURE INFORMATION: Exam: CT Head Without Contrast Exam date and time: 05/07/2021 8:17 PM Age: 76 years old Clinical indication: Injury or trauma; Fall; Blunt trauma (contusions or hematomas) TECHNIQUE: Imaging protocol: Computed tomography of the head without contrast. Radiation optimization: All CT scans at this facility use at least one of these dose optimization techniques: automated exposure control; mA and/or kV adjustment per patient size (includes targeted exams where dose is matched to clinical indication); or iterative reconstruction. COMPARISON: CT Head without contrast 06/20/2019 4:06 PM FINDINGS: Brain: There is moderate patchy low attenuation of deep white matter. There is mild prominence of the peripheral sulci. There is a subependymal calcification adjacent to the body of the left lateral ventricle and there are peripheral calcifications about the duarte matter in the lateral right temporal lobe which are unchanged from the prior study. There is a small calcified meningioma in the high right anterior parietal region measuring 10 mm. Cerebral ventricles: There is mild prominence of the central ventricular system. Paranasal sinuses: Visualized sinuses are unremarkable. No fluid levels. Mastoid air cells: Visualized mastoid air cells are well aerated. Bones/joints: Unremarkable. No acute fracture. Soft tissues: Unremarkable. IMPRESSION: 1. There has been no change since 06/20/2019. No acute interval intracranial process is identified. 2. Moderate chronic ischemic white matter change and mild atrophy with scattered areas of chronic calcification which are unchanged. Electronically signed by: Rivas Castillo On 05/07/2021 20:36:04 PM
--- NOTE | 2021-05-07 20:39 | REPVR ---
PROCEDURE INFORMATION: Exam: XR Chest Exam date and time: 05/07/2021 7:12 PM Age: 76 years old Clinical indication: Other: Sepsis, shock; Additional info: Sepsis/shock TECHNIQUE: Imaging protocol: XR of the chest. Views: 1 view. COMPARISON: CT Chest without contrast 05/03/2021 3:01 PM FINDINGS: Lungs: The lungs are unchanged. Pleural spaces: The left costophrenic angle is grossly unchanged. Heart/Mediastinum: Unremarkable. No cardiomegaly. Bones/joints: Status post fusion on the right in the posterior cervical spine. Other findings: Rotation to the left. IMPRESSION: Essentially stable rotated chest since 04/25/2021. Electronically signed by: Rivas Castillo On 05/07/2021 20:38:57 PM
[2021-05-07 20:56] LABS: ACETAMINOPHEN LEVEL 17.1 UG/ML (10.0-30.0); ALT/SGPT 11 U/L (12-78); BILIRUBIN,DIRECT 0.1 MG/DL (0.0-0.2); BILIRUBIN,TOTAL 0.3 MG/DL (0.2-1.0); BLOOD UREA NITROGEN 63 MG/DL (7-18); CALCIUM LEVEL 5.1 MG/DL (8.8-10.2); CARBON DIOXIDE LEVEL 23 MEQ/L (21-32); CHLORIDE LEVEL 104 MEQ/L (98-107); CK-MB VALUE MASS 3.4 NG/ML (<3.6); CPK CREATINE PHOSPHOKINASE 837 U/L (26-192); ETHYL ALCOHOL (ETHANOL) < 0.003 % (0.000-0.010); GLUCOSE, FASTING 157 MG/DL (70-100); MB/CK RELATIVE INDEX 0.41 (< OR =4); POTASSIUM SERUM 2.9 MEQ/L (3.5-5.1); SODIUM LEVEL 141 MEQ/L (136-145); TOTAL PROTEIN 5.6 GM/DL (6.4-8.2); TROPONIN I 0.02 NG/ML (< 0.10)
[2021-05-07 21:00] VITALS: BP 114/55
[2021-05-07] MEDS ORDERED: APIXABAN 5 MG TAB (ELIQUIS) PO SCH (21:00)
[2021-05-07] MEDS: LACTOBACILLUS ACIDOPHILUS CAP (BACID) PO SCH (21:00)
[2021-05-07] MEDS: GABAPENTIN 100 MG CAP PO SCH (21:00)
[2021-05-07] MEDS ORDERED: rOPINIRole 1MG TAB PO SCH (21:00)
[2021-05-07] MEDS ORDERED: HYDROCORTISONE 5MG TABLET PO SCH (21:00)
[2021-05-07] MEDS ORDERED: KCL 10MEQ/100ML SWI (KRUN) 10 MEQ in IV 1 EA IV ONE (21:15)
[2021-05-07] MEDS ORDERED: cefTRIAXone SOD 1 GM in D5W MINI-BAG PLUS 50 ML IV ONE (21:15)
[2021-05-07] MEDS ORDERED: POTASSIUM CHLORIDE 10% LIQ 20 MEQ/15 ML UDC PO ONE (21:15)
[2021-05-07] MEDS ORDERED: CALCIUM GLUCONATE 1,000 MG in D5W MINI-BAG PLUS 100 ML IV ONE (21:15)
--- NOTE | 2021-05-07 21:20 | ECGEPIP ---
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
[2021-05-07 23:04] LABS: RSV AMPLIFICATION NEGATIVE (NEGATIVE)
[2021-05-08] MEDS ORDERED: MAALOX 30 ML SUSP *UDC PO PRN (01:15)
[2021-05-08] MEDS ORDERED: ACETAMINOPHEN TAB 650MG DOSE (2X325MG) PO PRN (01:15)
[2021-05-08] MEDS ORDERED: MOM 30ML SUSPENSION UDC PO PRN (01:15)
[2021-05-08] MEDS ORDERED: LACTULOSE 20 GM/30 ML SYRUP UD PO ONE (01:25)
--- NOTE | 2021-05-08 01:29 | HPEPDOC ---
[facility] Medical History & Physical Date of Admission May 08, 2021 Date of Service: May 08, 2021 History and Physical CHIEF COMPLAINT: altered mental status HISTORY OF PRESENT ILLNESS: 76 yo F the past, history of chronic back pain with thoracic fractures, COPD on oxygen, iron deficiency anemia, chronic atrial fibrillation on amiodarone and eliquis, adrenal insufficiency on chronic dexamethasone, type 2 diabetes, chronic diastolic congestive heart failure, restless leg syndrome, arthritis, recently discharged from [facility] to [facility] for ongoing physical therapy on 04/17/21. Brought to ER with complaint of altered mental status and worsening back pain. Patient appears confused to place, but is able to recognize at this point, although was not able to recognize her children and grandchildren earlier. reports that patient had been given buprenoprhine patch approximately 4 days ago, which was discontinued after patient developed altered mental status. The patients oxycodone was also recently increased from 5 mg twice 10 mg twice per day. Patient requires assist for ambulation. Per , patient has been having diarrhea at [facility]. Had another loose BM in ER. Patient is able to answer some review of systems questions primarily concerned with back pain. She denies any chest pain, shortness of breath, palpitations, lightheadedness, polyuria, polydipsia. She complains of chronic bilateral lower extremity weakness and paresthesias of the hands. Lab work in ER showing WBC 15.7. Hgb 11.0. K 2.9. Calcium 5.1. Ammonia 38. Cr 1.70. CRP 23.6. GI panel positive for C diff. Patient will be admitted to hospi talist service for management of debility, failure to thrive back pain, as well as management of electrolyte abnormalities which hypokalemia and hypocalcemia. PAST MEDICAL HISTORY: Aortic stenosis, mild to moderate Diastolic CHF, EF 60-65% DM2 Pulmonary HTN, mild to moderate COPD not O2 dependent Chronic back with hx of compression fractures Hx of SBO Adrenal insufficiency, on chronic dexamethasone therapy Iron deficiency anemia CTA and TIA Arthritis Remote hx of etoh use disorder, last drink 40 years ago Chronic T3, T7, T8 compression fractures PAST SURGICAL HISTORY: Bilateral cataract surgery L breast biopsy Hysterectomy Cervial and thoracic spine surgery SOCIAL HISTORY: Remote hx of ETOH use disorder Former smoker No illicit drug use Current at [facility] for rehab CODE status: FULL CODE FAMILY HISTORY: Father: DM2 Mother: COPD ALLERGIES: Please see below. REVIEW OF SYSTEMS: 10 point ROS was conducted, relevant findings are noted in HPI HOME MEDICATIONS: Please see below. PHYSICAL EXAMINATION: VITAL SIGNS: please see below General: thin elderly female, disoriented to place and time HEENT: PERRLA, EOMI, sclerae clear Neck: supple, normal ROM, no JVD Respiratory: lungs CTAB, no wheeze, no rales, no crackles CVS: RRR, normal S1, S2, no murmurs Abdo: soft, no masses, no hepatosplenomegaly, BS+, no rebound tenderness Extremities: no edema, pulses 2+ MSK: spinal and paraspinal pain to palpation Neuro: no focal neuro deficits, moving all 4 extremities, CN2-12 intact. 4/5 strength bilaterally in lower extremities. Psych: calm, cooperative, AAO x 3 LABORATORY DATA: See below. IMAGING: MR Thoracic Spine wo contrast (04/18/21): 1. Loss of height and associated signal abnormalities in the T7, T8, and L1 vertebral bodies, consistent with acute compression fractures, presumably osteoporotic compression fractures. There is associated focal kyphosis and retropulsion associated with the T7 and T8 fractures which results in stenosis of the spinal canal and posterior displacement of the spinal cord. 2. Right posterolateral complex fluid collection in the epidural space at the level of T8 and T9, probably representing an associated small epidural hematoma. If there is any clinical concern for infection or if the patient has a known malignancy, further evaluation can be performed with contrast enhanced imaging. 3. Chronic compression fracture with mild retropulsion, associated focal kyphosis, and mild spinal canal stenosis at T3, which appears unchanged from the prior CT scan of July,. MR Lumbar Spine wo contrast (04/18/21): 1. Mild loss of height, depression of the superior endplate, and abnormal signal in the L1 vertebral body, consistent with an acute compression fracture, with loss of height visible on the CT scan of April 06, 2021, but not present in August,. Slight retropulsion of the inferior aspect of the L1 vertebral body contributes to mild stenosis of the spinal canal at L1-L2. 2. Multilevel degenerative disc disease, together with ligamentum flavum hypertrophy, and hypertrophic facet arthropathy in the mid and lower lumbar spine, resulting in multilevel central canal stenosis and neural foraminal narrowing, most prominent at L3-L4 and L4-L5. CXR (05/07/21): FINDINGS: Lungs: The lungs are unchanged. Pleural spaces: The left costophrenic angle is grossly unchanged. Heart/Mediastinum: Unremarkable. No cardiomegaly. Bones/joints: Status post fusion on the right in the posterior cervical spine. Other findings: Rotation to the left. IMPRESSION: Essentially stable rotated chest since 04/25/2021 CT head wo contrast (05/07/21): 1. There has been no change since 06/20/2019. No acute interval intracranial process is identified. 2. Moderate chronic ischemic white matter change and mild atrophy with scattered areas of chronic calcification which are unchanged. MICROBIOLOGY: Please see below. ASSESSMENT: 76 yo F the past, history of chronic back pain with thoracic fractures, COPD on oxygen, iron deficiency anemia, chronic atrial fibrillation on amiodarone and eliquis, adrenal insufficiency on chronic dexamethasone, type 2 diabetes, chronic diastolic congestive heart failure, restless leg syndrome, arthritis. Was DC to [facility] for rehab on 04/17/21. Returns with AMS, worsening thoracic back pain, failure to thrive after increase in pain meds and addition of buprenorphine patch. Found to have C diff in stool. Hypokalemia and hypocalcemia. . PLAN: Metabolic encephalopathy possible 2/2 polypharmacy with likely combination of hypocalcemia and hyperammonemia - found to have leukocytosis and low grade temp 100.2 - C diff positive in ER - electrolyte replacement for hypokalemia and hypocalcemia started in ER. See below. - will treat underlying causes - administer lactulose for elevated ammonia - patient is presently calm, pleasant. Will require re-orientation. - will hold buspirone, gabapentin, ropinirole, trazodone - will give PO oxycodone 5 mg q6h prn, and c/w lidocaine patch - patient was given 1 mg ativan to obtain MRI in ER, on arrival to floor obtunded. Gave 0.2mg flumazenil x 2, which resulted in improvement in mentation. Leukocytosis with low grade temp -WBC 15.7. T 100.2 -Given worsening back pain from prior, decision was made to obtain STAT MRI LS and TS. - subsequently, report of frequent loose stools at [facility] was made apparent, and patient had another loose stool in ER - GI panel was positive for C. diff - the leukocytosis and fever were thought to be more likely attributed to C diff rather that discitis. - due to JUAN CARLOS, contrast imaging was unable to be performed per MR suite - ordered MR LS and TS Severe thoracic back pain, change in pain pattern/hx vertebral compression fractures/chronic back pain Deconditioning/debility, unable to perform activities of daily living -Will obtain STAT thoracic and lumbar MRI. Due to elevated Cr, unable to use contrast which could better characterize any discitis - Report published in [employer] and review my me at 6:35 AM on 05/08/21 - MR Thoracic Spine showing: acute compression fx with associated kyphosis and retropulsion associated with T7 and T8 fractures - resulting in posterior displacement of the spinal cord and stenosis of spinal canal; Further, R posterolateral complex fluid collection in the epidural space at the level of T8 and T9, probably representing a small epidural hematoma, "if concern for i nfection or malignancy, further evaluation with contrast imaging can be performed" - given patient's leukocytosis and fever, I believe that the patient needs transfer to a higher level of care and evaluation by neurosurgery/spinal surgery service. - transfer process will be initiated. C diff infection - having watery stools at [facility], once in ER - GI panel positive for C diff - start PO vancomycin JUAN CARLOS - no prior hx of CKD documented - Cr 1.43, likely pre-renal - repeat BMP after IVF. QT prolongation on EKG - hold trazodone - check Mg Hyperammonemia - recent CT imaging did not indicate findings c/w cirrhosis - given 15 mg lactulose Hypokalemia - possibly related to diarrhea caused by C diff - replace potassium, trend BMP Hypocalcemia - etiology uncertain at this time, possible related to diarrhea or use of alendronate - given calcium gluconate in ER - will calcium level, as well as ionized Ca2++ level - likely contributing to AMS and debility DM2 - ISS, FSBS AC and HS - hypoglycemic precautions History of CVA and TIA -Resumed on ASA and statin Diastolic congestive heart failure with preserved ejection fraction, compensated -Will hold torsemide due to diarrhea - appears euvolemic Chronic atrial fibrillation -Resume amiodarone -resume cardizem 240 -on eliquis, will hold given MR findings of possible hematoma at level of T7-T8 compression fracture. COPD, not oxygen or steroid dependent -Resume her bronchodilators Adrenal insufficiency -Resumed hydrocortisone History of urine retention -No acute issues. Per the DVT ppx: on eliquis, will hold given MR findings of possible hematoma at level of T7-T8 compression fracture. Dispo: initiate transfer to higher level of care for eval by neurosurgery/spinal surgery service, given leukocytosis and fevers in conjunction with MR findings suspicious for infection vs hematoma as well as posterior spinal cord displa cement at level of T7 and T8 compression fractures. Vital Signs Vital Signs Date Time Temp Pulse Resp B/P (MAP) Pulse Ox O2 Delivery O2 Flow Rate FiO2 05/08/21 00:15 69 18 106/52 (70) 98 Room Air 05/07/21 22:22 97.9 2.0 Laboratory Data Labs 24H Laboratory Tests 2 05/07/21 19:26: Immature Granulocyte % (Auto) 0.8, Neutrophils (%) (Auto) 78.4H, Lymphocytes (%) (Auto) 11.8L, Monocytes (%) (Auto) 8.5H, Eosinophils (%) (Auto) 0.3, Basophils (%) (Auto) 0.2, Neutrophils # (Auto) 12.4H, Lymphocytes # (Auto) 1.9, Monocytes # (Auto) 1.3H, Eosinophils # (Auto) 0.0, Basophils # (Auto) 0.0, Nucleated Red Blood Cells % (auto) 0.0, Urine Color YELLOW, Urine Appearance CLEAR, Urine pH 5.0, Urine Specific [place] 1.011, Urine Protein NEGATIVE, Urine Glucose (UA) NEGATIVE, Urine Ketones NEGATIVE, Urine Blood NEGATIVE, Urine Nitrite NEGATIVE, Urine Bilirubin NEGATIVE, Urine Urobilinogen 0.2, Urine Leukocyte Esterase NEGATIVE, Urine WBC (Auto) 0, Urine RBC (Auto) 0, Urine Hyaline Casts (Auto) 0, Urine Bacteria (Auto) NEGATIVE, Urine Squamous Epithelial Cells 0, Urine Sperm (Auto) , Anion Gap 14, Glomerular Filtration Rate 31.0L, Lactic Acid Level 1.0, Calcium Level 5.1*L, Total Bilirubin 0.3, Direct Bilirubin 0.1, Aspartate Amino Transf (AST/SGOT) 19, Alanine Aminotransferase (ALT/SGPT) 11L, Alkaline Phosphatase 161H, Ammonia 38H, Total Creatine Kinase 837H, Creatine Kinase MB 3.4, Creatine Kinase MB Relative Index 0.41, Troponin I 0.02, C-Reactive Protein, Quantitative 23.60H, Total Protein 5.6L, Albumin 2.0L, Albumin/Globulin Ratio 0.6L, Salicylates Level 2.0L, Acetaminophen Level 17.1, Ethyl Alcohol Level < 0.003 05/07/21 22:16: Coronavirus (COVID-19)(PCR) NEGATIVE, Influenza Type A (RT-PCR) NEGATIVE, Influenza Type B (RT-PCR) NEGATIVE, Respiratory Syncytial Virus (PCR) NEGATIVE CBC/BMP Laboratory Tests 05/07/21 19:26 Microbiology Microbiology 05/07/21 Gastrointestinal Tract Panel (PCR) - Final, Complete Clostridium Difficile A/B 05/07/21 Blood Culture, Received Pending 05/07/21 Blood Culture, Received Pending Home Medications Scheduled Albuterol Sulfate (Albuterol Sulfate) 2.5 Mg/0.5 Ml Vial.neb, 2.5 MG INH QID Alendronate Sodium (Alendronate Sodium) 70 Mg Tablet, 70 MG PO QWEEK SATURDAY Allopurinol (Allopurinol) 100 Mg Tablet, 100 MG PO DAILY Amiodarone HCl (Amiodarone HCl) 200 Mg Tablet, 200 MG PO 3XW SATURDAY, SATURDAY AND SATURDAY Apixaban (Eliquis) 5 Mg Tablet, 5 MG PO BID Ascorbic Acid (Vitamin C) 500 Mg Tablet, 500 MG PO DAILY Baclofen (Baclofen) 5 Mg Tablet, 5 MG PO BID Buspirone HCl (Buspirone HCl) 5 Mg Tablet, 5 MG PO BID Ferrous Gluconate (Ferrous Gluconate) 324 Mg Tablet, 324 MG PO DAILY Fluticasone Propionate (Fluticasone Propionate) 16 Gm [place].susp, 2 SPRAYS NARES DAILY Fluticasone/Umeclidin/Vilanter (Trelegy Ellipta 100-62.5-25) 1 Each Blst.w.dev, 1 PUFF INH DAILY Gabapentin (Gabapentin) 100 Mg Capsule, 200 MG PO TID Glucagon,Human Recombinant (Glucagon Emergency Kit) 1 Mg Vial, 1 MG IM ASDIRECTED Hydrocortisone (Hydrocortisone) 5 Mg Tablet, 15 MG PO QAM Hydrocortisone (Hydrocortisone) 5 Mg Tablet, 10 MG PO QHS L.acidoph/L.bulg/B.bif/S.therm (Bacid Caplet) 1 Each Tablet, 1 TAB PO QID Lidocaine (Salonpas) 1 Each Adh..patch, 1 PATCH TOP BID LEFT RIB Lidocaine (Salonpas) 1 Each Adh..patch, 1 PATCH TP BID MID BACK Metformin HCl (Metformin HCl) 1,000 Mg Tablet, 1,000 MG PO BID Omeprazole (Omeprazole) 40 Mg Capsule.dr, 40 MG PO DAILY Ropinirole HCl (Ropinirole HCl) 1 Mg Tablet, 1 MG PO BID DINNER & BEDTIME Torsemide (Torsemide) 20 Mg Tablet, 40 MG PO BID Trazodone HCl (Trazodone HCl) 100 Mg Tablet, 100 MG PO QHS dilTIAZem HCl (Diltiazem 24Hr Cd) 120 Mg Cap.er.24h, 120 MG PO BID Scheduled PRN Acetaminophen (Acetaminophen) 500 Mg Tablet, 500 MG PO Q4H PRN for PAIN Acetaminophen (Acetaminophen) 500 Mg Tablet, 1,000 MG PO Q8H PRN for PAIN Albuterol Sulfate (Ventolin Hfa) 18 Gm Hfa.aer.ad, 2 PUFF INH QID PRN for SHORTNESS OF BREATH Bisacodyl (Dulcolax) 10 Mg Supp.rect, 10 MG VT DAILY PRN for CONSTIPATION Diclofenac Sodium (Voltaren) 100 Gm Gel..gram., 4 GRAM TOP QID PRN for PAIN APPLY TO PAINFUL AREAS Magnesium Hydroxide (Milk of Magnesia) 400 Mg/5 Ml Oral.susp, 30 ML PO DAILY PRN for CONSTIPATION Naloxone HCl (Narcan) 4 Mg [place], 4 MG NA ONCE PRN for MALAISE Nitroglycerin (Nitrostat) 0.4 Mg Tab.subl, 0.4 MG SL NITRO PRN for CHEST PAIN Oxycodone HCl (Oxycodone HCl) 5 Mg Tablet, 5 MG PO Q6H PRN for PAIN Sodium Phosphate,Wallace-Dibasic (Enema) 133 Ml Enema, 1 CHRISTI VT DAILY PRN for CONSTIPATION Allergies Coded Allergies: propoxyphene (Verified Allergy, Intermediate, hives, 08/24/20) A-FIB/CHADSVASC A-FIB History Current/History of A-Fib/PAF?: Yes Current PO Anticoag Therapy: Yes RADHA DURBIN MD May 08, 2021 01:29
[2021-05-08] MEDS ORDERED: BISACODYL 10 MG SUPP PR PRN (01:30)
[2021-05-08] MEDS ORDERED: oxyCODONE 5MG TAB PO PRN (01:30)
[2021-05-08] MEDS ORDERED: NITROGLYCERIN 0.4 MG SUBL TABLET SL PRN (01:30)
[2021-05-08] MEDS ORDERED: CALCIUM GLUCONATE 1,000 MG in D5W MINI-BAG PLUS 100 ML IV ONE ×3 (02:25→12:00)
[2021-05-08] MEDS ORDERED: LORazepam 2 MG/ML VIAL IV STA ×2 (02:28→15:40)
[2021-05-08] MEDS ORDERED: LORazepam 2 MG/ML VIAL As Ordered ONE (02:32)
[2021-05-08 02:56] LABS: ALBUMIN 1.7 GM/DL (3.2-5.2); ALT/SGPT 14 U/L (12-78); BILIRUBIN,TOTAL 0.3 MG/DL (0.2-1.0); BLOOD UREA NITROGEN 58 MG/DL (7-18); CARBON DIOXIDE LEVEL 25 MEQ/L (21-32); CHLORIDE LEVEL 111 MEQ/L (98-107); CREATININE FOR GFR 1.43 MG/DL (0.55-1.30); GLOMERULAR FILTRATION RATE 37.9 (>39); GLUCOSE, FASTING 171 MG/DL (70-100); MAGNESIUM LEVEL 0.9 MG/DL (1.8-2.4); POTASSIUM SERUM 3.4 MEQ/L (3.5-5.1); SODIUM LEVEL 145 MEQ/L (136-145); TOTAL PROTEIN 4.8 GM/DL (6.4-8.2); TROPONIN I < 0.02 NG/ML (< 0.10)
[2021-05-08] MEDS ORDERED: POTASSIUM CHLORIDE 10 MEQ SR TABLET PO ONE (03:15)
[2021-05-08] MEDS ORDERED: flumazeniL 0.5 MG/5 ML VIAL IV STA ×2 (03:59→04:07)
[2021-05-08 04:00] VITALS: BP 106/54
[2021-05-08 04:21] LABS: ABG BASE EXCESS -2.7 (-2.0-2.0); ABG HCO3 21.6 MEQ/L (22.0-26.0); ABG O2 SATURATION 99.2 % (95.0-99.0); ABG PARTIAL PRESSURE CO2 35.7 mmHg (35.0-45.0); ABG PARTIAL PRESSURE O2 279.8 mmHg (75.0-100.0); ABG STANDARD HCO3 22.2 MEQ/L (22.0-26.0); ABG TOTAL CO2 22.7 MEQ/L (23.0-31.0)
[2021-05-08] MEDS: MAG SULF 1GM/100ML (MAG RUN) 1 GM in IV 1 EA IV SCH ×2 (04:58→06:48)
[2021-05-08 05:00] VITALS: BP_SYST 114; BP_SYST 115; BP_DIAS 55; BP_DIAS 56
--- NOTE | 2021-05-08 06:11 | REPVR ---
PROCEDURE INFORMATION: Exam: MR Thoracic Spine Without Contrast Exam date and time: 05/08/2021 3:54 AM Age: 76 years old Clinical indication: Pain in thoracic spine; Other: Worsening pain, point vertebral tenderness TECHNIQUE: Imaging protocol: Multiplanar magnetic resonance images of the thoracic spine without contrast. COMPARISON: 1. CT Spine,thoracic w/o contrast 07/29/2020 6:[address] Chest without contrast 05/03/2021 3:01:03 PM FINDINGS: Vertebrae: There is an exaggerated thoracic kyphosis, with focal kyphosis at T3 and also at T6-T7. There is advanced loss of height and mild retropulsion at T3 without associated edema, consistent with a chronic compression fracture, which corresponds with a collapsed vertebrae on the prior CT scan of July,. There is advanced loss of height, retropulsion, and associated abnormal signal with low signal on T1 and high signal on STIR within the T7 and T8 vertebral bodies with acute compression fractures. The abnormal signal extends into the left pedicle at T7. There was only mild loss of height of T7 the prior CT scan of July,. The T8 vertebral body was normal in height on the prior CT scan. There is mild loss of height, depression of the inferior endplate, and associated abnormal signal in the L1 vertebral body, consistent with an acute compression fracture. The L1 vertebrae was normal in height on the prior CT scan of July,. There is chronic mild loss of height of the T6 vertebral body. Epidural space: At the right lateral and posterior aspect of the spinal canal at the level of T8 and T9 there is a small epidural collection which is hyperintense on T2 and intermediate in signal on T1, and probably represents a small epidural hematoma. It measures 1.4 x 0.7 cm in the axial plane and extends for a length of approximately 2.4 cm craniocaudal. Spinal cord: There is posterior displacement of the spinal cord at T3 and at T7 and T8. There is displacement of the left distortion of the cord at the level of T9. No abnormal signal is seen in the cord. Discs/Spinal canal/Neural foramina: There is mild stenosis of the spinal canal at T3. There is moderate stenosis of the spinal canal related to the retropulsions at T7 and T8. There is mild stenosis extending through the T9 level related to the right posterolateral epidural collection. Soft tissues: There is mild anterior paraspinous edema centered at L1. There is paraspinous edema anteriorly and posteriorly associated with the T7 and T8 levels. IMPRESSION: 1. Loss of height and associated signal abnormalities in the T7, T8, and L1 vertebral bodies, consistent with acute compression fractures, presumably osteoporotic compression fractures. There is associated focal kyphosis and retropulsion associated with the T7 and T8 fractures which results in stenosis of the spinal canal and posterior displacement of the spinal cord. 2. Right posterolateral complex fluid collection in the epidural space at the level of T8 and T9, probably representing an associated small epidural hematoma. If there is any clinical concern for infection or if the patient has a known malignancy, further evaluation can be performed with contrast enhanced imaging. 3. Chronic compression fracture with mild retropulsion, associated focal kyphosis, and mild spinal canal stenosis at T3, which appears unchanged from the prior CT scan of July,. Electronically signed by: Candy Hall On 05/08/2021 06:11:35 AM
[2021-05-08] MEDS: VANCOMYCIN ORAL SOL 250MG/5ML ORAL SYRINGE PO SCH ×3 (06:26→13:33)
--- NOTE | 2021-05-08 06:27 | REPVR ---
PROCEDURE INFORMATION: Exam: MR Lumbar Spine Without Contrast Exam date and time: 05/08/2021 2:56 AM Age: 76 years old Clinical indication: [place] and low back pain and other: Point tenderness; Additional info: Worsening pain, point vertebral tenderness TECHNIQUE: Imaging protocol: Multiplanar magnetic resonance images of the lumbar spine without intravenous contrast. COMPARISON: 1. CT Spine, lumbar w/o contrast 08/19/2020 12:[address] ABD/PEL W/PO CONTRAST ONLY 04/06/2021 5:50:10 PM FINDINGS: Vertebrae: There is normal alignment of the lumbar spine. There is mild loss of height with depression of the inferior endplate of L1, with associated hyperintense signal throughout the vertebral body on the STIR images and low signal on T1 including serpiginous low signal, consistent with an acute compression fracture. The loss of height is present on the CT scan of the abdomen and pelvis from April 06, 2021, but was the vertebra was normal in height on the prior CT scan of the lumbar spine from August,. There is mild retropulsion at the inferior endplate of L1. There is a central endplate depression with a Schmorl's node in the inferior endplate of L3, unchanged from the prior CT scans. Spinal cord: The conus medullaris terminates at the L1 level. The distal cord appears unremarkable. L1-L2: There is mild stenosis of the spinal canal at L1-L2, related to the retropulsion of the inferior aspect of the L1 vertebral body as well as a diffuse bulge of the L1-L2 disc. L2-L3: There is mild stenosis of the spinal canal and mild bilateral neural foraminal narrowing at L2-L3 related to a diffuse disc bulge and ligamentum flavum hypertrophy. L3-L4: There is moderate to severe stenosis of the spinal canal at L3-L4 related to a diffuse disc bulge, ligamentum flavum hypertrophy, and facet hypertrophy. There is mild right and moderate left neural foraminal narrowing. There is fluid in the bilateral L3-L4 facet joints and a posterior extending synovial cyst is seen associated with the left L3-L4 facet joint. L4-L5: There is moderate to severe central canal stenosis at L4-L5 related to a diffuse disc bulge, ligamentum flavum hypertrophy and facet hypertrophy. There is mild bilateral neural foraminal narrowing. There is fluid associated with both facet joints L5-S1: There is mild stenosis of the spinal canal related to a diffuse bulge of the disc, ligamentum flavum hypertrophy, facet arthropathy. There is mild bilateral neural foraminal narrowing. There is fluid in the facet joint. Soft tissues: The paraspinous soft tissues appear unremarkable. Other findings: There is mild relative dilation of the infrarenal abdominal aorta measuring up to 2.4 x 2.2 cm just above the bifurcation, unchanged from the prior CT scans. IMPRESSION: 1. Mild loss of height, depression of the superior endplate, and abnormal signal in the L1 vertebral body, consistent with an acute compression fracture, with loss of height visible on the CT scan of April 06, 2021, but not present in August,. Slight retropulsion of the inferior aspect of the L1 vertebral body contributes to mild stenosis of the spinal canal at L1-L2. 2. Multilevel degenerative disc disease, together with ligamentum flavum hypertrophy, and hypertrophic facet arthropathy in the mid and lower lumbar spine, resulting in multilevel central canal stenosis and neural foraminal narrowing, most prominent at L3-L4 and L4-L5. Electronically signed by: Candy Hall On 05/08/2021 06:27:01 AM
[2021-05-08 06:48] LABS: BASO % 0.4 % (0.0-1.0); EOS # 0.1 10^3/uL (0.0-0.5); EOS % 0.7 % (0.0-3.0); HEMATOCRIT 35.2 % (36.0-47.0); HEMOGLOBIN 10.5 g/dl (12.0-15.5); LYMPH # 1.1 10^3/uL (1.5-5.0); LYMPH % 10.3 % (24.0-44.0); MEAN CORPUSCULAR HEMOGLOBIN 24.8 pg (27.0-33.0); MEAN CORPUSCULAR HGB CONC 29.8 g/dl (32.0-36.5); MEAN CORPUSCULAR VOLUME 83.2 fl (80.0-96.0); MONO % 9.7 % (2.0-8.0); NEUTROPHILS # 8.3 10^3/uL (1.5-8.5); NEUTROPHILS % 77.9 % (36.0-66.0); PLATELET COUNT, AUTOMATED 445 10^3/uL (150-450); RED BLOOD COUNT 4.23 10^6/uL (4.00-5.40); WHITE BLOOD COUNT 10.7 10^3/uL (4.0-10.0)
[2021-05-08 06:48] LABS: ALBUMIN 1.8 GM/DL (3.2-5.2); BILIRUBIN,TOTAL 0.2 MG/DL (0.2-1.0); CALCIUM LEVEL 5.1 MG/DL (8.8-10.2); CREATININE FOR GFR 1.44 MG/DL (0.55-1.30); GLOMERULAR FILTRATION RATE 37.6 (>39); MAGNESIUM LEVEL 1.1 MG/DL (1.8-2.4); POTASSIUM SERUM 3.1 MEQ/L (3.5-5.1); TOTAL PROTEIN 5.5 GM/DL (6.4-8.2)
[2021-05-08] MEDS: ALBUTEROL SULFATE 2.5 MG/0.5 ML INH NEB SOLN INH SCH ×3 (07:24→15:36)
[2021-05-08 08:00] VITALS: BP 132/60
[2021-05-08] MEDS ORDERED: DOCUSATE SODIUM 100MG CAPSULE PO SCH (09:00)
[2021-05-08] MEDS ORDERED: FERROUS GLUCONATE 324 MG TAB PO SCH (09:00)
[2021-05-08] MEDS ORDERED: HYDROCORTISONE 5MG TABLET PO SCH (09:00)
[2021-05-08] MEDS: LACTOBACILLUS ACIDOPHILUS CAP (BACID) PO SCH ×2 (09:00→13:00)
[2021-05-08] MEDS ORDERED: AMIODARONE 200 MG TAB (PACERONE) PO SCH (09:00)
[2021-05-08] MEDS: GABAPENTIN 100 MG CAP PO SCH (09:00)
[2021-05-08] MEDS ORDERED: allopurinoL 100 MG TAB PO SCH (09:00)
[2021-05-08] MEDS ORDERED: FLUTICASONE PROP 0.05% NASAL SPRAY 16 GM (FLONASE) NARES SCH (09:00)
[2021-05-08 12:00] VITALS: BP 119/59
[2021-05-08] MEDS ORDERED: CALCITRIOL 0.25 MCG CAP (S0169) PO SCH (12:10)
[2021-05-08] MEDS ORDERED: CALC1CAP31 PO (12:31)
[2021-05-08] MEDS ORDERED: LR 1,000 ML IV SCH (12:50)
--- NOTE | 2021-05-08 12:54 | DS.PDOC ---
Discharge Summary General Date of Admission May 08, 2021 at 01:11 Date of Discharge 05/08/2021 Attending Physician: ANGELINA NGUYEN MD Discharge Summary PROCEDURES PERFORMED DURING STAY: None ADMITTING DIAGNOSES: Acute on chronic back pain Electrolyte abnormalities Encephalopathy DISCHARGE DIAGNOSES: Sepsis Metabolic encephalopathy - likely multifactorial with recent polypharmacy with psychotropic meds, severe hypoCa, sepsis with confirmed C.diff colitis C.diff colitis Hypocalcemia Hypomagnesemia Hypokalemia JUAN CARLOS Newly noted multilevel thoracolumbar acute compression fractures Newly noted epidural collection Acute on chronic back pain Active chronic conditions: Aortic stenosis, mild to moderate Diastolic CHF, EF 60-65% DM2 Pulmonary HTN, mild to moderate COPD Adrenal insufficiency, on chronic dexamethasone therapy Iron deficiency anemia Chronic T3, T7, T8 compression fractures COMPLICATIONS/CHIEF COMPLAINT: Chronic Pain,Electrolyte Abnormality,. HISTORY OF PRESENT ILLNESS: 76 yo W with a history of chronic back pain with degenerative disc disease, with chronic thoracic fractures, COPD on oxygen, iron deficiency anemia, chronic atrial fibrillation on amiodarone and eliquis, adrenal insufficiency on chronic dexamethasone, type 2 diabetes, chronic diastolic congestive heart failure, restless leg syndrome, arthritis, recently discharged from [facility] to [facility] for ongoing physical therapy on 04/17/21. She was brought to the ER with complaint of altered mental status and worsening back pain and she was confused with the reporting that she had recently been given a buprenoprhine patch approximately 4 days prior, which was discontinued after patient developed altered mental status. The patients oxycodone was also recently increased from 5 mg twice 10 mg twice per day. Per , patient had also been having diarrhea at the half-way/rehab. HOSPITAL COURSE: On initial evaluation, she was hemodynamically stable, on 2L NC, and was awake and answered some review of systems questions primarily concerned with back pain. She denied any chest pain, shortness of breath, palpitations, lightheadedness, polyuria, polydipsia. She reported acute on chronic back pain and associated bilateral lower extremity weakness and paresthesias of the hands. She denied recent falls. At baseline she walks with an assistive device and had been in PT with assistance and supervision with ambulation. Lab work in ER showing WBC 15.7. Hgb 11.0. K 2.9. serum calcium of 5.1. Ammonia 38. Cr 1.70. CRP 23.6. GI panel positive for C diff. Patient will be admitted to the hospitalist service for electrolyte abnormalities with hypokalemia, hypomagnesemia and hypocalcemia. She started receiving IV repletions and had an MRI of her T and L spine without contrast and they revealed some new compression fractures at T7, T8, L1 with a R posterolateral complex fluid in the epidural space at T8 and T9 c/f hematoma vs. infection vs. other etiologies but could not discern without a contrast study. She also had a an L1 acute compression fracture with slight retropulsion of inferior aspect of the L1 vertebral body contributing to mild stenoses at L1 and L2. Given the numerous acute fractures with an epidural collection, we reached out to tertiary centers for emergent neurosurgical evaluation. In the meantime, we started PO vancomycin for C.diff colitis and started aggressive repletion of her multiple electrolyte abnormalities. She was accepted at [facility] for neurosurgical evaluation and will be admitted to the SICU by Dr. Sampson. ASSESSMENT: 76 yo F the past, history of chronic back pain with thoracic fractures, COPD on oxygen, iron deficiency anemia, chronic atrial fibrillation on amiodarone and eliquis, adrenal insufficiency on chronic dexamethasone, type 2 diabetes, chronic diastolic congestive heart failure, restless leg syndrome, arthritis. Was DC to [facility] for rehab on 04/17/21. Returns with AMS, worsening thoracic back pain, failure to thrive after increase in pain meds and addition of buprenorphine patch. Found to have C diff in stool. Hypokalemia and hypocalcemia. . PLAN: Metabolic encephalopathy possible 2/2 polypharmacy with likely combination of hypocalcemia and hyperammonemia - found to have leukocytosis and low grade temp 100.2 - C diff positive in ER - electrolyte replacement for hypokalemia and hypocalcemia started in ER. See below. - will treat underlying causes - administer lactulose for elevated ammonia - patient is presently calm, pleasant. Will require re-orientation. - will hold buspirone, gabapentin, ropinirole, trazodone - will give PO oxycodone 5 mg q6h prn, and c/w lidocaine patch - patient was given 1 mg ativan to obtain MRI in ER, on arrival to floor obtunded. Gave 0.2mg flumazenil x 2, which resulted in improvement in mentation. Leukocytosis with low grade temp -WBC 15.7. T 100.2 -Given worsening back pain from prior, decision was made to obtain STAT MRI LS and TS. - subsequently, report of frequent loose stools at [facility] was made apparent, and patient had another loose stool in ER - GI panel was positive for C. diff - the leukocytosis and fever were thought to be more likely attributed to C diff rather that discitis. - due to JUAN CARLOS, contrast imaging was unable to be performed per MR suite - ordered MR LS and TS Severe thoracic back pain, change in pain pattern/hx vertebral compression fractures/chronic back pain Deconditioning/debility, unable to perform activities of daily living -Will obtain STAT thoracic and lumbar MRI. Due to elevated Cr, unable to use contrast which could better characterize any discitis - Report published in [employer] and review my me at 6:35 AM on 05/08/21 - MR Thoracic Spine showing: acute compression fx with associated kyphosis and retropulsion associated with T7 and T8 fractures - resulting in posterior displacement of the spinal cord and stenosis of spinal canal; Further, R posterolateral complex fluid collection in the epidural space at the level of T8 and T9, probably representing a small epidural hematoma, "if concern for infection or malignancy, further evaluation with contrast imaging can be performed" - given patient's leukocytosis and fever, I believe that the patient needs transfer to a higher level of care and evaluation by neurosurgery/spinal surgery service. - transfer process will be initiated. DISCHARGE MEDICATIONS: Please see below. ALLERGIES: Please see below. PHYSICAL EXAMINATION ON DISCHARGE: VITAL SIGNS: Please see below. PHYSICAL EXAMINATION: VITAL SIGNS: please see below General: thin elderly female, at this time is obtunded and arousable by sternal rub HEENT: PERRLA, EOMI, sclerae clear Neck: supple, normal ROM, no JVD Respiratory: lungs CTAB, no wheeze, no rales, no crackles CVS: RRR, normal S1, S2, no murmurs Abdo: soft, no masses, no hepatosplenomegaly, BS+, no rebound tenderness Extremities: no edema, pulses 2+ MSK: Grimaces to spinal and paraspinal palpation Neuro: unable to participate due to lethargy at this time LABORATORY DATA: Please See Below. IMAGING: MR Thoracic Spine wo contrast (04/18/21): 1. Loss of height and associated signal abnormalities in the T7, T8, and L1 vertebral bodies, consistent with acute compression fractures, presumably osteoporotic compression fractures. There is associated focal kyphosis and retropulsion associated with the T7 and T8 fractures which results in stenosis of the spinal canal and posterior displacement of the spinal cord. 2. Right posterolateral complex fluid collection in the epidural space at the level of T8 and T9, probably representing an associated small epidural hematoma. If there is any clinical concern for infection or if the patient has a known malignancy, further evaluation can be performed with contrast enhanced imaging. 3. Chronic compression fracture with mild retropulsion, associated focal kyphosis, and mild spinal canal stenosis at T3, which appears unchanged from the prior CT scan of July,. MR Lumbar Spine wo contrast (04/18/21): 1. Mild loss of height, depression of the superior endplate, and abnormal signal in the L1 vertebral body, consistent with an acute compression fracture, with loss of height visible on the CT scan of April 06, 2021, but not present in August,. Slight retropulsion of the inferior aspect of the L1 vertebral body contributes to mild stenosis of the spinal canal at L1-L2. 2. Multilevel degenerative disc disease, together with ligamentum flavum hypertrophy, and hypertrophic facet arthropathy in the mid and lower lumbar spine, resulting in multilevel central canal stenosis and neural foraminal narrowing, most prominent at L3-L4 and L4-L5. CXR (05/07/21): FINDINGS: Lungs: The lungs are unchanged. Pleural spaces: The left costophrenic angle is grossly unchanged. Heart/Mediastinum: Unremarkable. No cardiomegaly. Bones/joints: Status post fusion on the right in the posterior cervical spine. Other findings: Rotation to the left. IMPRESSION: Essentially stable rotated chest since 04/25/2021 CT head wo contrast (05/07/21): 1. There has been no change since 06/20/2019. No acute interval intracranial process is identified. 2. Moderate chronic ischemic white matter change and mild atrophy with scattered areas of chronic calcification which are unchanged. MICROBIOLOGY: Please see below. PROGNOSIS: Guarded ACTIVITY: As tolerated DIET: NPO while lethargic and borderline obtunded DISCHARGE PLAN: transfer/discharge to [facility] DISPOSITION: transfer/discharge to [facility] DISCHARGE INSTRUCTIONS: Will discharge with 1000cc D5 with 11g calcium gluconate with 40meq KCl at 50cc/hr Will also discharge with ativan 1mg IV PRN for potential agitation and anxiety as noted when she was awake pre-MRI Will also discharge with 2L NS fluid to bolus PRN for potential hypotension given ongoing sepsis On 2L NC at this time ITEMS TO FOLLOWUP ON ON OUTPATIENT: Transferring to tertiary center DISCHARGE CONDITION: Stable TIME SPENT ON DISCHARGE: 56 minutes. Vital Signs/I&Os Vital Signs Date Time Temp Pulse Resp B/P (MAP) Pulse Ox O2 Delivery O2 Flow Rate FiO2 05/08/21 12:00 97.8 86 20 119/59 (79) 99 Nasal Cannula 2.0 I&O- Last 24 Hours up to 6 AM 05/08/21 06:00 Intake Total 1260 ml Balance 1260 ml Laboratory Data Labs 24H Laboratory Tests 2 05/07/21 19:26: Immature Granulocyte % (Auto) 0.8, Neutrophils (%) (Auto) 78.4H, Lymphocytes (%) (Auto) 11.8L, Monocytes (%) (Auto) 8.5H, Eosinophils (%) (Auto) 0.3, Basophils (%) (Auto) 0.2, Neutrophils # (Auto) 12.4H, Lymphocytes # (Auto) 1.9, Monocytes # (Auto) 1.3H, Eosinophils # (Auto) 0.0, Basophils # (Auto) 0.0, Nucleated Red Blood Cells % (auto) 0.0, Urine Color YELLOW, Urine Appearance CLEAR, Urine pH 5.0, Urine Specific [place] 1.011, Urine Protein NEGATIVE, Urine Glucose (UA) NEGATIVE, Urine Ketones NEGATIVE, Urine Blood NEGATIVE, Urine Nitrite NEGATIVE, Urine Bilirubin NEGATIVE, Urine Urobilinogen 0.2, Urine Leukocyte Esterase NEGATIVE, Urine WBC (Auto) 0, Urine RBC (Auto) 0, Urine Hyaline Casts (Auto) 0, Urine Bacteria (Auto) NEGATIVE, Urine Squamous Epithelial Cells 0, Urine Sperm (Auto) , Anion Gap 14, Glomerular Filtration Rate 31.0L, Lactic Acid Level 1.0, Calcium Level 5.1*L, Total Bilirubin 0.3, Direct Bilirubin 0.1, Aspartate Amino Transf (AST/SGOT) 19, Alanine Aminotransferase (ALT/SGPT) 11L, Alkaline Phosphatase 161H, Ammonia 38H, Total Creatine Kinase 837H, Creatine Kinase MB 3.4, Creatine Kinase MB Relative Index 0.41, Troponin I 0.02, C-Reactive Protein, Quantitative 23.60H, Total Protein 5.6L, Albumin 2.0L, Albumin/Globulin Ratio 0.6L, Salicylates Level 2.0L, Acetaminophen Level 17.1, Ethyl Alcohol Level < 0.003 05/07/21 22:16: Coronavirus (COVID-19)(PCR) NEGATIVE, Influenza Type A (RT-PCR) NEGATIVE, Influenza Type B (RT-PCR) NEGATIVE, Respiratory Syncytial Virus (PCR) NEGATIVE 05/08/21 01:49: Anion Gap 9, Glomerular Filtration Rate 37.9L, Lactic Acid Level 0.8, Calcium Level 5.0*L, Total Bilirubin 0.3, Aspartate Amino Transf (AST/SGOT) 19, Alanine Aminotransferase (ALT/SGPT) 14, Alkaline Phosphatase 133H, Troponin I < 0.02, Total Protein 4.8L, Albumin 1.7L, Albumin/Globulin Ratio 0.5L, Whole Blood Ionized Calcium 2.8*L, Magnesium Level 0.9*L 05/08/21 04:00: Blood Gas Bicarbonate Standard 22.2, Arterial Blood pH 7.400, Arterial Blood Partial Pressure CO2 35.7, Arterial Blood Partial Pressure O2 279.8H, Arterial Blood Total CO2 22.7L, Arterial Blood HCO3 21.6L, Arterial Blood Base Excess - 2.7L, Arterial Blood Oxygen Saturation 99.2H 05/08/21 05:39: Anion Gap 8, Glomerular Filtration Rate 37.6L, Calcium Level 5.1*L, Magnesium Level 1.1L, Total Bilirubin 0.2, Aspartate Amino Transf (AST/SGOT) 19, Alanine Aminotransferase (ALT/SGPT) 12, Alkaline Phosphatase 142H, Total Protein 5.5L, A lbumin 1.8L, Albumin/Globulin Ratio 0.5L 05/08/21 05:48: Immature Granulocyte % (Auto) 1.0, Neutrophils (%) (Auto) 77.9H, Lymphocytes (%) (Auto) 10.3L, Monocytes (%) (Auto) 9.7H, Eosinophils (%) (Auto) 0.7, Basophils (%) (Auto) 0.4, Neutrophils # (Auto) 8.3, Lymphocytes # (Auto) 1.1L, Monocytes # (Auto) 1.0H, Eosinophils # (Auto) 0.1, Basophils # (Auto) 0.0, Nucleated Red Blood Cells % (auto) 0.0, Whole Blood Ionized Calcium 3.1*L 05/08/21 12:19: Whole Blood Ionized Calcium 3.2*L CBC/BMP Laboratory Tests 05/07/21 19:26 05/08/21 01:49 05/08/21 05:39 05/08/21 05:48 Microbiology Microbiology 05/07/21 Gastrointestinal Tract Panel (PCR) - Final, Complete Clostridium Difficile A/B 05/07/21 Blood Culture, Received Pending 05/07/21 Blood Culture, Received Pending Discharge Medications Scheduled Albuterol Sulfate (Albuterol Sulfate) 2.5 Mg/0.5 Ml Vial.neb, 2.5 MG INH QID, (Reported) Alendronate Sodium (Alendronate Sodium) 70 Mg Tablet, 70 MG PO QWEEK, (Reported) SATURDAY Allopurinol (Allopurinol) 100 Mg Tablet, 100 MG PO DAILY, (Reported) Amiodarone HCl (Amiodarone HCl) 200 Mg Tablet, 200 MG PO 3XW, (Reported) SATURDAY, SATURDAY AND SATURDAY Apixaban (Eliquis) 5 Mg Tablet, 5 MG PO BID, (Reported) Ascorbic Acid (Vitamin C) 500 Mg Tablet, 500 MG PO DAILY, (Reported) Baclofen (Baclofen) 5 Mg Tablet, 5 MG PO BID, (Reported) Buspirone HCl (Buspirone HCl) 5 Mg Tablet, 5 MG PO BID, (Reported) Calcitriol (Calcitriol) 0.25 Mcg Capsule, 0.5 MCG PO BID Ferrous Gluconate (Ferrous Gluconate) 324 Mg Tablet, 324 MG PO DAILY, (Reported) Fluticasone Propionate (Fluticasone Propionate) 16 Gm Romulus.susp, 2 SPRAYS NARES DAILY, (Reported) Fluticasone/Umeclidin/Vilanter (Trelegy Ellipta 100-62.5-25) 1 Each Blst.w.dev, 1 PUFF INH DAILY, (Reported) Gabapentin (Gabapentin) 100 Mg Capsule, 200 MG PO TID, (Reported) Glucagon,Human Recombinant (Glucagon Emergency Kit) 1 Mg Vial, 1 MG IM ASDIRECTED, (Reported) Hydrocortisone (Hydrocortisone) 5 Mg Tablet, 15 MG PO QAM, (Reported) Hydrocortisone (Hydrocortisone) 5 Mg Tablet, 10 MG PO QHS, (Reported) L.acidoph/L.bulg/B.bif/S.therm (Bacid Caplet) 1 Each Tablet, 1 TAB PO QID, (Reported) Lidocaine (Salonpas) 1 Each Adh..patch, 1 PATCH TOP BID, (Reported) LEFT RIB Lidocaine (Salonpas) 1 Each Adh..patch, 1 PATCH TP BID, (Reported) MID BACK Metformin HCl (Metformin HCl) 1,000 Mg Tablet, 1,000 MG PO BID, (Reported) Omeprazole (Omeprazole) 40 Mg Capsule.dr, 40 MG PO DAILY, (Reported) Ropinirole HCl (Ropinirole HCl) 1 Mg Tablet, 1 MG PO BID, (Reported) DINNER & BEDTIME Torsemide (Torsemide) 20 Mg Tablet, 40 MG PO BID, (Reported) Trazodone HCl (Trazodone HCl) 100 Mg Tablet, 100 MG PO QHS, (Reported) dilTIAZem HCl (Diltiazem 24Hr Cd) 120 Mg Cap.er.24h, 120 MG PO BID, (Reported) Scheduled PRN Acetaminophen (Acetaminophen) 500 Mg Tablet, 500 MG PO Q4H PRN for PAIN, (Reported) Acetaminophen (Acetaminophen) 500 Mg Tablet, 1,000 MG PO Q8H PRN for PAIN, (Reported) Albuterol Sulfate (Ventolin Hfa) 18 Gm Hfa.aer.ad, 2 PUFF INH QID PRN for SHORTNESS OF BREATH, (Reported) Bisacodyl (Dulcolax) 10 Mg Supp.rect, 10 MG IN DAILY PRN for CONSTIPATION, (R eported) Diclofenac Sodium (Voltaren) 100 Gm Gel..gram., 4 GRAM TOP QID PRN for PAIN, (Reported) APPLY TO PAINFUL AREAS Magnesium Hydroxide (Milk of Magnesia) 400 Mg/5 Ml Oral.susp, 30 ML PO DAILY PRN for CONSTIPATION, (Reported) Naloxone HCl (Narcan) 4 Mg Romulus, 4 MG NA ONCE PRN for MALAISE, (Reported) Nitroglycerin (Nitrostat) 0.4 Mg Tab.subl, 0.4 MG SL NITRO PRN for CHEST PAIN, (Reported) Oxycodone HCl (Oxycodone HCl) 5 Mg Tablet, 5 MG PO Q6H PRN for PAIN, (Reported) Sodium Phosphate,[place]-Dibasic (Enema) 133 Ml Enema, 1 CHRISTI IN DAILY PRN for CONSTIPATION, (Reported) Allergies Coded Allergies: propoxyphene (Verified Allergy, Intermediate, hives, 08/24/20) ANGELINA NGUYEN MD May 08, 2021 12:54
[2021-05-08] MEDS ORDERED: CALCIUM GLUCONATE IV SCH (13:00)
[2021-05-08] MEDS ORDERED: D5W IV SCH (13:00)
[2021-05-08] MEDS ORDERED: POTASSIUM CHLORIDE IV SCH (13:00)
[2021-05-08] MEDS ORDERED: MAG SULF 1GM/100ML (MAG RUN) 1 GM in IV 1 EA IV ONE (13:00)
[2021-05-08 13:18] LABS: CALCIUM LEVEL 6.1 MG/DL (8.8-10.2); CREATININE FOR GFR 1.18 MG/DL (0.55-1.30); GLOMERULAR FILTRATION RATE 47.3 (>39); POTASSIUM SERUM 4.2 MEQ/L (3.5-5.1); PTH INTACT 117.3 PG/ML (18.5-88.0); TOTAL 25(OH) VITAMIN D 38.6 NG/ML (30.0-100.0)
[2021-05-08] MEDS: KCL 10MEQ/100ML SWI (KRUN) 10 MEQ in IV 1 EA IV SCH ×4 (13:34→15:49)
[2021-05-08 16:15] VITALS: BP 124/58
[2021-05-08] MEDS ORDERED: HYDROCORTISONE 10 MG TAB PO SCH (21:00)
--- NOTE | 2021-05-09 08:25 | CR ---
CONSULTATION DATE: 05/08/2021 REQUESTING PHYSICIAN: Radha Avelar MD CONSULTING PHYSICIAN: Félix Deutsch M.D. REASON FOR CONSULTATION: Management of acute renal failure, multiple electrolyte abnormalities. CHIEF COMPLAINT: The patient was brought into the emergency room last night because of weakness, diarrhea, confusion and altered mental status. HISTORY OF PRESENT ILLNESS: Note: History was obtained from medical team and from patient's chart. The patient herself is unable to provide any reliable history. Laura Solano is a 76-year-old, female with a past medical history of adrenal insufficiency, chronically on hydrocortisone. Apparently she is chronically on calcium and magnesium supplementation as well, unknown etiology. She does not follow up in nephrology as outpatient. She was brought into the emergency room with diarrhea, confusion, lethargy, weakness, altered mental status. She was found to have multiple electrolyte abnormalities including hypokalemia, hypocalcemia, hypomagnesemia. She also had acute renal failure. The patient was admitted under the hospitalist service. She was started on IV fluid hydration. Her creatinine on arrival was 1.7. Nephrology service was called for further help in the management of this patient since despite multiple IV calcium gluconate and IV potassium supplementations, her electrolytes were still off. The patient needed my immediate attention. I saw and evaluated the patient today morning at the bedside. She was able to wake up and answer a few questions but she is still confused and she wants to go home. PAST MEDICAL HISTORY: Not obtainable at this time from the patient but as per patient's admission H&P, she has history of adrenal insufficiency, history of chronic dependence on high-dose magnesium and calcium. PAST SURGICAL HISTORY: Unknown past surgical history. ALLERGIES: She is allergic to propoxyphene. FAMILY HISTORY: I was unable to obtain the family history. SOCIAL HISTORY: I was unable to retrieve the chart from the computer system. PHYSICAL EXAMINATION: GENERAL: The patient is awake, alert, oriented x1 only, lying in bed, answers a few questions. VITAL SIGNS: Temperature is 97.8 degrees Fahrenheit, blood pressure 119/59, pulse is 86, respiratory rate of 20, saturating 99% on nasal cannula, two liters. HEAD AND NECK: Extraocular muscles are intact. Pupils are equally round and reactive to light. Mucous membranes are moist. Neck is supple. There is no significant JVD. CARDIOVASCULAR: S1, S2, regular rate. EXTREMITIES: No significant edema of the bilateral lower extremities. RESPIRATORY: Chest is clear to auscultation bilaterally. Bilateral equal air entry. ABDOMEN: Soft, positive bowel sounds, nontender, no organomegaly. MUSCULOSKELETAL: No clubbing or cyanosis. 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 LAB REVIEW: CBC showed a WBC of 10.7, hemoglobin 10.5, platelets are 445. Urinalysis showed no leukocyte esterase or nitrites. ABG done today morning showed a pH of 7.4. BMP done on arrival showed sodium 141, potassium 2.9, chloride 104, bicarb 23, BUN 63, creatinine 1.7, calcium of 5.1, ammonia of 38. Repeat BMP done in the afternoon showed sodium 141, potassium 4.2, chloride 109, bicarb 23, BUN 47, creatinine of 1.1. Calcium was 6.1, ionized calcium, latest one was 3.2. PTH was 117. Vitamin D was 38.6. Microbiology: C. diff toxin is positive. Blood cultures are negative. CURRENT INPATIENT MEDICATIONS: The patient's medications were all reviewed by myself. She was getting multiple doses of IV calcium gluconate. I started the patient on D5W with 11 gm of calcium gluconate and 40 mEq of KCl and started the patient on 50 mL an hour. I also started the patient on Ringer's lactate on 40 mL an hour for a total of one liter. She is also getting multiple runs of IV magnesium sulfate, allopurinol 100 mg p.o. daily, amiodarone 200 mg p.o. Saturday, Saturday, Saturday, Eliquis 5 mg p.o. twice a day. I also started the patient on calcitriol 0.5 mcg p.o. twice a day. She is on Cardizem 120 mg p.o. twice a day, iron tablet daily. She is on hydrocortisone 15 mg in the morning and 10 mg in the evening, Ativan p.r.n., potassium chloride 40 mEq x1 dose p.o. She is Requip 1 mg p.o. twice a day and getting vancomycin 125 mg p.o. q.6 hourly. ASSESSMENT AND PLAN: 1. Acute renal failure. It is secondary to dehydration and ongoing C. diff colitis diarrhea. She was hydrated with IV normal saline. I am starting the patient on Ringer's lactate. Creatinine level is improving with IV fluid hydration. 2. Severe hypocalcemia. The patient has been started on IV infusion of calcium and dextrose at 50 mL an hour for a total of 1 liter. Hopefully, that should help improve the calcium level. Continue to monitor BMP and calcium levels. 3. Hypokalemia. The patient is getting oral and IV potassium. Potassium has also been added to IV fluid. Potassium level is improving. Thank you for involving me in the care of this patient. I shall be happy to follow the patient along with you tomorrow morning.
== END 2021-05-08 16:15 | disposition short-term general hospital (02) | DRG 871 ==
LOC: M ED 18:20 → M ED INP 05-08 01:11 → ENRESERV 05-08 01:37 → M PCU 05-08 03:49
PROVIDERS: ADMIT Family Medicine; ATTEND Internal Medicine
DX: A41.9 Sepsis, unspecified organism (principal); G93.41 Metabolic encephalopathy; M48.54XA Collapsed vertebra, not elsewhere classified, thoracic region, initial encounter for fracture; N17.9 Acute kidney failure, unspecified; A04.72 Enterocolitis due to Clostridium difficile, not specified as recurrent; E72.20 Disorder of urea cycle metabolism, unspecified; I50.32 Chronic diastolic (congestive) heart failure; I48.20 Chronic atrial fibrillation, unspecified; E83.51 Hypocalcemia; E83.42 Hypomagnesemia; I35.0 Nonrheumatic aortic (valve) stenosis; E11.9 Type 2 diabetes mellitus without complications; I27.20 Pulmonary hypertension, unspecified; D50.9 Iron deficiency anemia, unspecified; J44.9 Chronic obstructive pulmonary disease, unspecified; Z79.01 Long term (current) use of anticoagulants; G25.81 Restless legs syndrome; M19.90 Unspecified osteoarthritis, unspecified site; Z79.899 Other long term (current) drug therapy; Z88.8 Allergy status to other drugs, medicaments and biological substances; Z86.73 Personal history of transient ischemic attack (TIA), and cerebral infarction without residual deficits; Z98.41 Cataract extraction status, right eye; Z98.42 Cataract extraction status, left eye

== ENCOUNTER → 2021-05-29 | Outpatient (REF) | payer MEDICARE ==
[~2021-05-29] MED LIST changes: +ALB2.5NEB INH; +ALLO100T PO; +BACITAB PO; +BACL5TAB2 PO; +CALC1CAP31 PO; +GLUC1KIT IM; +LIDO1ADH16 TOP; +LIDO1ADH16 TP; +NARC1SPR; +TRAZ-257 PO
[2021-05-29 11:01] LABS: HEMATOCRIT 33.6 % (36.0-47.0); MEAN CORPUSCULAR HEMOGLOBIN 25.6 pg (27.0-33.0); MEAN CORPUSCULAR HGB CONC 29.8 g/dl (32.0-36.5); MEAN CORPUSCULAR VOLUME 85.9 fl (80.0-96.0); PLATELET COUNT, AUTOMATED 426 10^3/uL (150-450); RED BLOOD COUNT 3.91 10^6/uL (4.00-5.40); WHITE BLOOD COUNT 14.5 10^3/uL (4.0-10.0)
[2021-05-29 11:27] LABS: BLOOD UREA NITROGEN 14 MG/DL (7-18); CALCIUM LEVEL 7.6 MG/DL (8.8-10.2); CARBON DIOXIDE LEVEL 29 MEQ/L (21-32); CHLORIDE LEVEL 101 MEQ/L (98-107); CREATININE FOR GFR 0.53 MG/DL (0.55-1.30); GLOMERULAR FILTRATION RATE > 60.0 (>39); GLUCOSE, FASTING 108 MG/DL (70-100); POTASSIUM SERUM 3.2 MEQ/L (3.5-5.1); SODIUM LEVEL 139 MEQ/L (136-145)
== END ==
PROVIDERS: ATTEND Internal Medicine
DX: J44.9 Chronic obstructive pulmonary disease, unspecified (principal)

== ENCOUNTER → 2021-05-31 | Outpatient (REF) | payer MEDICARE | PROVIDERS: ATTEND Internal Medicine | DX: E87.6 Hypokalemia (principal) ==

== ENCOUNTER → 2021-05-31 | Outpatient (REF) | payer MEDICARE ==
[~2021-05-31] MED LIST changes: +ASPI-584 PO; -ASPI325T3 PO
[2021-05-31 12:55] LABS: HEMATOCRIT 30.5 % (36.0-47.0); HEMOGLOBIN 9.2 g/dl (12.0-15.5); MEAN CORPUSCULAR HEMOGLOBIN 25.9 pg (27.0-33.0); MEAN CORPUSCULAR HGB CONC 30.2 g/dl (32.0-36.5); MEAN CORPUSCULAR VOLUME 85.9 fl (80.0-96.0); PLATELET COUNT, AUTOMATED 483 10^3/uL (150-450); RED BLOOD COUNT 3.55 10^6/uL (4.00-5.40); WHITE BLOOD COUNT 9.6 10^3/uL (4.0-10.0)
[2021-05-31 13:25] LABS: ALBUMIN 1.8 GM/DL (3.2-5.2); ALT/SGPT 10 U/L (12-78); BILIRUBIN,TOTAL 0.4 MG/DL (0.2-1.0); BLOOD UREA NITROGEN 14 MG/DL (7-18); CALCIUM LEVEL 7.6 MG/DL (8.8-10.2); CARBON DIOXIDE LEVEL 31 MEQ/L (21-32); CHLORIDE LEVEL 98 MEQ/L (98-107); CREATININE FOR GFR 0.65 MG/DL (0.55-1.30); GLOMERULAR FILTRATION RATE > 60.0 (>39); GLUCOSE, FASTING 149 MG/DL (70-100); SODIUM LEVEL 138 MEQ/L (136-145); TOTAL PROTEIN 5.2 GM/DL (6.4-8.2)
== END ==
PROVIDERS: ATTEND Internal Medicine
DX: E87.6 Hypokalemia (principal)

== ENCOUNTER → 2021-05-31 | Outpatient (CLI) | payer MEDICARE ==
--- NOTE | 2021-05-31 15:11 | REP ---
INDICATION: SHORTNESS OF BREATH. COMPARISON: AP portable 627 21, PA 04/25/2021; CT 05/03/2021 TECHNIQUE: AP semi-erect portable FINDINGS: Haziness in both upper lung zones and patchy infiltrate or atelectasis at both lung bases. Blunting of CP angles may reflect some small effusion. There is an old healed and remodeled left 7th lateral rib fracture evident. Prior fracture of the proximal humeral shaft with healing and remodeling of the portions seen. Bones are demineralized. Heart is enlarged with left atrial and ventricular enlargement. There is some vascular redistribution and few Shaun B lines are noted. Tortuous calcified aorta unchanged. IMPRESSION: 1. Cardiomegaly with vascular redistribution and some Shaun B lines noted in the right base. There are bilateral small effusions suggested, left greater than right. Bibasilar infiltrates/atelectasis and some hazy opacities in the lung apices also noted. Findings suggest some alveolar and interstitial edema and/or infiltrates.. Superimposed pneumonitis would be a clinical determination. <Electronically signed by Filippo Ortega > 05/31/21 [id number]
== END ==
PROVIDERS: ATTEND Internal Medicine
DX: R06.02 Shortness of breath (principal); I51.7 Cardiomegaly

== ENCOUNTER → 2021-06-05 | Outpatient (REF) | payer MEDICARE ==
[2021-06-05 11:24] LABS: HEMATOCRIT 32.3 % (36.0-47.0); HEMOGLOBIN 9.6 g/dl (12.0-15.5); MEAN CORPUSCULAR HEMOGLOBIN 26.7 pg (27.0-33.0); MEAN CORPUSCULAR HGB CONC 29.7 g/dl (32.0-36.5); MEAN CORPUSCULAR VOLUME 89.7 fl (80.0-96.0); PLATELET COUNT, AUTOMATED 666 10^3/uL (150-450); WHITE BLOOD COUNT 9.4 10^3/uL (4.0-10.0)
[2021-06-05 11:50] LABS: BLOOD UREA NITROGEN 14 MG/DL (7-18); CALCIUM LEVEL 7.1 MG/DL (8.8-10.2); CARBON DIOXIDE LEVEL 34 MEQ/L (21-32); CHLORIDE LEVEL 97 MEQ/L (98-107); CREATININE FOR GFR 0.79 MG/DL (0.55-1.30); GLOMERULAR FILTRATION RATE > 60.0 (>39); GLUCOSE, FASTING 182 MG/DL (70-100); POTASSIUM SERUM 3.5 MEQ/L (3.5-5.1); SODIUM LEVEL 138 MEQ/L (136-145)
[2021-06-05 21:59] LABS: NT-PRO BNP 7419 PG/ML (<450)
== END ==
PROVIDERS: ATTEND Internal Medicine
DX: I50.9 Heart failure, unspecified (principal); E87.6 Hypokalemia

== ENCOUNTER → 2021-06-07 | Outpatient (REF) | payer MEDICARE ==
[~2021-06-07] MED LIST changes: -ASPI-584 PO; +ASPI325T3 PO
[2021-06-07 10:55] LABS: HEMATOCRIT 33.2 % (36.0-47.0); HEMOGLOBIN 9.7 g/dl (12.0-15.5); MEAN CORPUSCULAR HEMOGLOBIN 25.7 pg (27.0-33.0); MEAN CORPUSCULAR HGB CONC 29.2 g/dl (32.0-36.5); MEAN CORPUSCULAR VOLUME 87.8 fl (80.0-96.0); PLATELET COUNT, AUTOMATED 699 10^3/uL (150-450); RED BLOOD COUNT 3.78 10^6/uL (4.00-5.40); WHITE BLOOD COUNT 19.5 10^3/uL (4.0-10.0)
[2021-06-07 11:26] LABS: BLOOD UREA NITROGEN 16 MG/DL (7-18); CALCIUM LEVEL 7.8 MG/DL (8.8-10.2); CARBON DIOXIDE LEVEL 39 MEQ/L (21-32); CHLORIDE LEVEL 94 MEQ/L (98-107); CREATININE FOR GFR 0.84 MG/DL (0.55-1.30); GLOMERULAR FILTRATION RATE > 60.0 (>39); GLUCOSE, FASTING 252 MG/DL (70-100); NT-PRO BNP 8262 PG/ML (<450); POTASSIUM SERUM 3.4 MEQ/L (3.5-5.1); SODIUM LEVEL 140 MEQ/L (136-145)
== END ==
PROVIDERS: ATTEND Internal Medicine
DX: I50.9 Heart failure, unspecified (principal)

== ENCOUNTER → 2021-06-08 | Outpatient (REF) | payer MEDICARE ==
[~2021-06-08] MED LIST changes: +ACET-907 PO; -AMIO200T3 PO; +AMIO200T49 PO; +ASPI-584 PO; -ASPI325T3 PO; +BISA10SU20 PR; +ELIQ2.5T PO; +ENSU-12 PO; +ERGO500029 PO; +FURO20TA2 PO; -KLOR10TA76 PO; +OMEP-173 PO; -OMEP-218 PO; -OMEP-221 PO; +OMEP40CA5 PO; +POTA-136 PO; +ROCA0.5C PO
[2021-06-08 11:35] LABS: HEMATOCRIT 32.8 % (36.0-47.0); HEMOGLOBIN 9.2 g/dl (12.0-15.5); MEAN CORPUSCULAR HEMOGLOBIN 25.5 pg (27.0-33.0); MEAN CORPUSCULAR VOLUME 90.9 fl (80.0-96.0); PLATELET COUNT, AUTOMATED 662 10^3/uL (150-450); RED BLOOD COUNT 3.61 10^6/uL (4.00-5.40); WHITE BLOOD COUNT 15.9 10^3/uL (4.0-10.0)
[2021-06-08 12:11] LABS: BLOOD UREA NITROGEN 15 MG/DL (7-18); CALCIUM LEVEL 7.6 MG/DL (8.8-10.2); CARBON DIOXIDE LEVEL 42 MEQ/L (21-32); CHLORIDE LEVEL 93 MEQ/L (98-107); GLOMERULAR FILTRATION RATE > 60.0 (>39); GLUCOSE, FASTING 101 MG/DL (70-100); NT-PRO BNP 6078 PG/ML (<450); POTASSIUM SERUM 3.4 MEQ/L (3.5-5.1); SODIUM LEVEL 141 MEQ/L (136-145)
== END ==
PROVIDERS: ATTEND Internal Medicine
DX: I50.9 Heart failure, unspecified (principal)

== ENCOUNTER → 2021-06-08 | Outpatient (REF) | payer MEDICARE ==
[~2021-06-08] MED LIST changes: -ACET-907 PO; +AMIO200T3 PO; -AMIO200T49 PO; -ASPI-584 PO; +ASPI325T3 PO; -BISA10SU20 PR; -ELIQ2.5T PO; -ENSU-12 PO; -ERGO500029 PO; -FURO20TA2 PO; +KLOR10TA76 PO; -OMEP-173 PO; +OMEP-218 PO; +OMEP-221 PO; -OMEP40CA5 PO; -POTA-136 PO; -ROCA0.5C PO
== END ==
PROVIDERS: ATTEND Internal Medicine
DX: I50.9 Heart failure, unspecified (principal)

== ENCOUNTER → 2021-06-12 | Outpatient (CLI) | payer MEDICARE ==
--- NOTE | 2021-06-12 16:04 | REP ---
INDICATION: CHF, 425. COMPARISON: Portable chest dated 05/31/2021. TECHNIQUE: Single AP view of the chest performed portably. FINDINGS: There is diffuse interstitial coarsening bilaterally, unchanged. This could be acute, chronic or combination. There is discoid atelectasis in the costophrenic angles bilaterally. No definite pleural effusions are identified. Cardiac size is upper normal and has decreased slightly. The braden and mediastinum are unremarkable. There is an old left rib fracture. I suspect an old fracture of the left proximal humerus. IMPRESSION: New discoid atelectasis in the costophrenic angles bilaterally. Diffuse bilateral interstitial coarsening, unchanged. <Electronically signed by Ace Joseph > 06/12/21 1600
== END ==
PROVIDERS: ATTEND Internal Medicine
DX: J98.11 Atelectasis (principal); I50.9 Heart failure, unspecified

== ENCOUNTER → 2021-07-05 | Outpatient (CLI) | payer MEDICARE ==
[~2021-07-05] MED LIST changes: +ASPI-584 PO; -ASPI325T3 PO
--- NOTE | 2021-07-05 14:55 | REP ---
INDICATION: CHF COMPARISON: 06/12/2021 TECHNIQUE: Portable AP view of the chest FINDINGS: The mediastinum and cardiac silhouette are stable and within normal limits for portable technique. The lung oshea demonstrate stable chronic appearing changes. Mild interstitial edema cannot be excluded. No consolidation. No effusion. No pneumothorax. Skeletal structures are stable with old healed fractures. IMPRESSION: Chronic appearing changes as described above. Differential diagnosis cannot exclude mild interstitial edema. <Electronically signed by Anastacio Ritchie > 07/05/21 [id number]
== END ==
PROVIDERS: ATTEND Internal Medicine
DX: I50.9 Heart failure, unspecified (principal)

== ENCOUNTER → 2021-07-05 | Outpatient (REF) | payer MEDICARE ==
[2021-07-05 11:58] LABS: HEMATOCRIT 25.8 % (36.0-47.0); HEMOGLOBIN 7.6 g/dl (12.0-15.5); MEAN CORPUSCULAR HEMOGLOBIN 26.3 pg (27.0-33.0); MEAN CORPUSCULAR HGB CONC 29.5 g/dl (32.0-36.5); MEAN CORPUSCULAR VOLUME 89.3 fl (80.0-96.0); PLATELET COUNT, AUTOMATED 502 10^3/uL (150-450); RED BLOOD COUNT 2.89 10^6/uL (4.00-5.40)
[2021-07-05 12:24] LABS: CALCIUM LEVEL 9.1 MG/DL (8.8-10.2); CREATININE FOR GFR 1.35 MG/DL (0.55-1.30); GLOMERULAR FILTRATION RATE 40.5 (>39); POTASSIUM SERUM 4.6 MEQ/L (3.5-5.1)
== END ==
PROVIDERS: ATTEND Internal Medicine
DX: J44.9 Chronic obstructive pulmonary disease, unspecified (principal)

== ENCOUNTER → 2021-07-06 | Outpatient (REF) | payer MEDICARE ==
[2021-07-06 11:08] LABS: HEMATOCRIT 25.3 % (36.0-47.0); HEMOGLOBIN 7.7 g/dl (12.0-15.5); MEAN CORPUSCULAR HEMOGLOBIN 27.2 pg (27.0-33.0); MEAN CORPUSCULAR HGB CONC 30.4 g/dl (32.0-36.5); MEAN CORPUSCULAR VOLUME 89.4 fl (80.0-96.0); PLATELET COUNT, AUTOMATED 494 10^3/uL (150-450); RED BLOOD COUNT 2.83 10^6/uL (4.00-5.40); WHITE BLOOD COUNT 11.2 10^3/uL (4.0-10.0)
[2021-07-06 11:35] LABS: CALCIUM LEVEL 9.1 MG/DL (8.8-10.2); CREATININE FOR GFR 1.3 MG/DL (0.55-1.30); GLOMERULAR FILTRATION RATE 42.3 (>39); POTASSIUM SERUM 4.9 MEQ/L (3.5-5.1)
== END ==
PROVIDERS: ATTEND Internal Medicine
DX: I50.9 Heart failure, unspecified (principal)

== ENCOUNTER → 2021-07-10 | Outpatient (REF) | payer MEDICARE ==
[2021-07-10 17:56] LABS: HEMATOCRIT 29.8 % (36.0-47.0); HEMOGLOBIN 8.9 g/dl (12.0-15.5); MEAN CORPUSCULAR HGB CONC 29.9 g/dl (32.0-36.5); MEAN CORPUSCULAR VOLUME 90.3 fl (80.0-96.0); PLATELET COUNT, AUTOMATED 571 10^3/uL (150-450); WHITE BLOOD COUNT 15.2 10^3/uL (4.0-10.0)
[2021-07-10 19:16] LABS: CALCIUM LEVEL 9.4 MG/DL (8.8-10.2); CREATININE FOR GFR 1.96 MG/DL (0.55-1.30); GLOMERULAR FILTRATION RATE 26.3 (>39); POTASSIUM SERUM 5.4 MEQ/L (3.5-5.1)
== END ==
PROVIDERS: ATTEND Internal Medicine
DX: I50.9 Heart failure, unspecified (principal)

== ENCOUNTER → 2021-07-12 | Outpatient (REF) | payer MEDICARE ==
[~2021-07-12] MED LIST changes: -AMIO200T3 PO; +AMIO200T49 PO; -KLOR10TA76 PO; +POTA-136 PO
[2021-07-12 11:05] LABS: HEMATOCRIT 27.6 % (36.0-47.0); HEMOGLOBIN 8.5 g/dl (12.0-15.5); MEAN CORPUSCULAR HEMOGLOBIN 26.8 pg (27.0-33.0); MEAN CORPUSCULAR HGB CONC 30.8 g/dl (32.0-36.5); MEAN CORPUSCULAR VOLUME 87.1 fl (80.0-96.0); PLATELET COUNT, AUTOMATED 481 10^3/uL (150-450); RED BLOOD COUNT 3.17 10^6/uL (4.00-5.40); WHITE BLOOD COUNT 14.1 10^3/uL (4.0-10.0)
[2021-07-12 11:35] LABS: CALCIUM LEVEL 9.8 MG/DL (8.8-10.2); CREATININE FOR GFR 1.88 MG/DL (0.55-1.30); GLOMERULAR FILTRATION RATE 27.6 (>39); POTASSIUM SERUM 4.5 MEQ/L (3.5-5.1)
== END ==
PROVIDERS: ATTEND Internal Medicine
DX: I50.9 Heart failure, unspecified (principal)

== ENCOUNTER → 2021-07-13 | Outpatient (REF) | payer MEDICARE ==
[~2021-07-13] MED LIST changes: +AMIO200T3 PO; -AMIO200T49 PO; +KLOR10TA76 PO; -POTA-136 PO
[2021-07-13 11:22] LABS: HEMATOCRIT 26.1 % (36.0-47.0); HEMOGLOBIN 7.9 g/dl (12.0-15.5); MEAN CORPUSCULAR HEMOGLOBIN 26.9 pg (27.0-33.0); MEAN CORPUSCULAR HGB CONC 30.3 g/dl (32.0-36.5); MEAN CORPUSCULAR VOLUME 88.8 fl (80.0-96.0); PLATELET COUNT, AUTOMATED 475 10^3/uL (150-450); RED BLOOD COUNT 2.94 10^6/uL (4.00-5.40); WHITE BLOOD COUNT 12.5 10^3/uL (4.0-10.0)
[2021-07-13 11:55] LABS: CALCIUM LEVEL 9.1 MG/DL (8.8-10.2); CREATININE FOR GFR 1.6 MG/DL (0.55-1.30); GLOMERULAR FILTRATION RATE 33.3 (>39); POTASSIUM SERUM 4.3 MEQ/L (3.5-5.1)
== END ==
PROVIDERS: ATTEND Internal Medicine
DX: I50.9 Heart failure, unspecified (principal)

== ENCOUNTER → 2021-07-14 | Outpatient (CLI) | payer MEDICARE ==
--- NOTE | 2021-07-14 11:32 | REP ---
INDICATION: RT SHOULDER PAIN. COMPARISON: 03/10/2019. TECHNIQUE: Four views right shoulder. FINDINGS: No acute fracture or dislocation is seen. There is moderate narrowing and spurring at the acromioclavicular joint. The humeral head is high riding suggesting a rotator cuff tear. There appears to be calcification in the coracoclavicular ligament. IMPRESSION: Degenerative changes. High riding humeral head suggests a rotator cuff tear. <Electronically signed by Ace Lester > 07/14/21 1129
== END ==
LOC: M SOG 10:51
PROVIDERS: ATTEND Orthopaedic Surgery
DX: M25.511 Pain in right shoulder (principal)

== ENCOUNTER → 2021-07-28 | Outpatient (CLI) | payer MEDICARE ==
[~2021-07-28] MED LIST changes: -KLOR10TA76 PO; +POTA-136 PO
--- NOTE | 2021-07-28 10:27 | REP ---
INDICATION: SOFT TISSUE MASS PT IN CT HOLDING AREA COMPARISON: None TECHNIQUE: Grayscale and color Doppler evaluation using linear high-frequency transducer. FINDINGS: Directed ultrasound examination of the midline anterior chest wall at the site of palpable mass demonstrates a well-circumscribed 3.6 x 2.6 x 4.9 cm complex density lesion with central vascularity. Finding is nonspecific by ultrasound. Differential diagnosis includes but is not limited to complex lipoma. IMPRESSION: 1. Complex lesion as described above is nonspecific by ultrasound. Differential diagnosis includes but is not limited to a lipoma. <Electronically signed by Anastacio Ritchie > 07/28/21 1023
== END ==
LOC: M RAD 09:42
PROVIDERS: ATTEND Physician Assistant
DX: M79.9 Soft tissue disorder, unspecified (principal)

== ENCOUNTER → 2021-08-09 | Outpatient (REF) | payer MEDICARE, MEDICAID | LOC: M LAB REF 16:04 | PROVIDERS: ATTEND Surgery | DX: L72.3 Sebaceous cyst (principal) ==

== ENCOUNTER → 2021-08-16 | Outpatient (REF) | payer MEDICARE ==
[2021-08-16 11:09] LABS: HEMATOCRIT 29.7 % (36.0-47.0); MEAN CORPUSCULAR HEMOGLOBIN 27.2 pg (27.0-33.0); MEAN CORPUSCULAR HGB CONC 30.3 g/dl (32.0-36.5); MEAN CORPUSCULAR VOLUME 89.7 fl (80.0-96.0); PLATELET COUNT, AUTOMATED 526 10^3/uL (150-450); RED BLOOD COUNT 3.31 10^6/uL (4.00-5.40); WHITE BLOOD COUNT 12.8 10^3/uL (4.0-10.0)
[2021-08-16 11:23] LABS: CALCIUM LEVEL 10.6 MG/DL (8.8-10.2); CREATININE FOR GFR 1.71 MG/DL (0.55-1.30); GLOMERULAR FILTRATION RATE 30.8 (>39); POTASSIUM SERUM 4.6 MEQ/L (3.5-5.1)
== END ==
PROVIDERS: ATTEND Internal Medicine
DX: J44.9 Chronic obstructive pulmonary disease, unspecified (principal)

== ENCOUNTER → 2021-08-23 | Outpatient (REF) | payer MEDICARE ==
[2021-08-23 15:24] LABS: HEMATOCRIT 29.2 % (36.0-47.0); HEMOGLOBIN 8.7 g/dl (12.0-15.5); MEAN CORPUSCULAR HEMOGLOBIN 26.9 pg (27.0-33.0); MEAN CORPUSCULAR HGB CONC 29.8 g/dl (32.0-36.5); MEAN CORPUSCULAR VOLUME 90.4 fl (80.0-96.0); PLATELET COUNT, AUTOMATED 539 10^3/uL (150-450); RED BLOOD COUNT 3.23 10^6/uL (4.00-5.40); WHITE BLOOD COUNT 13.2 10^3/uL (4.0-10.0)
[2021-08-23 16:02] LABS: ALBUMIN 2.7 GM/DL (3.2-5.2); BILIRUBIN,TOTAL 0.2 MG/DL (0.2-1.0); CALCIUM LEVEL 10.9 MG/DL (8.8-10.2); CHOLESTEROL RISK RATIO 3.34 (<5); CREATININE FOR GFR 1.43 MG/DL (0.55-1.30); GLOMERULAR FILTRATION RATE 37.9 (>39); POTASSIUM SERUM 3.7 MEQ/L (3.5-5.1); THYROID STIMULATING HORMONE 2.53 uIU/ML (0.358-3.740); TOTAL PROTEIN 6.3 GM/DL (6.4-8.2)
== END ==
PROVIDERS: ATTEND Internal Medicine
DX: R41.0 Disorientation, unspecified (principal); Z79.899 Other long term (current) drug therapy

== ENCOUNTER → 2021-08-25 | Outpatient (REF) | payer MEDICARE ==
[2021-08-25 11:25] LABS: VITAMIN B12 LEVEL 547 PG/ML (247-911)
== END ==
PROVIDERS: ATTEND Physician Assistant
DX: G31.84 Mild cognitive impairment of uncertain or unknown etiology (principal)

== ENCOUNTER → 2021-08-28 | Outpatient (CLI) | payer MEDICARE, MEDICAID ==
--- NOTE | 2021-08-28 08:51 | REPVR ---
PROCEDURE INFORMATION: Exam: CT Head Without Contrast Exam date and time: 08/28/2021 8:32 AM Age: 76 years old Clinical indication: Pain; Headache; Additional info: Cognative impairment PT in CT holding area TECHNIQUE: Imaging protocol: Computed tomography of the head without contrast. Radiation optimization: All CT scans at this facility use at least one of these dose optimization techniques: automated exposure control; mA and/or kV adjustment per patient size (includes targeted exams where dose is matched to clinical indication); or iterative reconstruction. COMPARISON: CT Head without contrast 05/07/2021 8:11 PM FINDINGS: Brain: I see no evidence of acute hemorrhage or acute territorial infarct today. As before, there are moderate diffuse involutional changes in the brain with moderate white matter hypodensities suggestive of small vessel disease. Cortical and subependymal brain calcifications are stable. Small calcified meningioma in the high right frontal lobe as before at 11 mm. Cerebral ventricles: No ventriculomegaly. Paranasal sinuses: Visualized sinuses are unremarkable. No fluid levels. Mastoid air cells: Visualized mastoid air cells are well aerated. Orbital cavity: Prior bilateral lens replacements. Vasculature: Extensive vascular calcifications at the [id number] centrally. Bones/joints: Unremarkable. No acute fracture. Soft tissues: Unremarkable. IMPRESSION: Extensive chronic appearing changes in the brain without acute intracranial abnormality. If concern persists consider MRI. Electronically signed by: Papito Sin On 08/28/2021 08:50:46 AM
== END ==
LOC: M RAD 08:17
PROVIDERS: ATTEND Physician Assistant
DX: G31.84 Mild cognitive impairment of uncertain or unknown etiology (principal)

== ENCOUNTER → 2021-09-13 | Outpatient (REF) | payer MEDICARE, MEDICAID ==
[2021-09-13 12:36] LABS: HEMATOCRIT 30.5 % (36.0-47.0); HEMOGLOBIN 9.1 g/dl (12.0-15.5); MEAN CORPUSCULAR HEMOGLOBIN 26.8 pg (27.0-33.0); MEAN CORPUSCULAR HGB CONC 29.8 g/dl (32.0-36.5); PLATELET COUNT, AUTOMATED 402 10^3/uL (150-450); RED BLOOD COUNT 3.39 10^6/uL (4.00-5.40); WHITE BLOOD COUNT 12.3 10^3/uL (4.0-10.0)
[2021-09-13 13:01] LABS: CALCIUM LEVEL 10.6 MG/DL (8.8-10.2); CREATININE FOR GFR 1.87 MG/DL (0.55-1.30); GLOMERULAR FILTRATION RATE 27.8 (>39); POTASSIUM SERUM 3.5 MEQ/L (3.5-5.1)
== END ==
PROVIDERS: ATTEND Internal Medicine
DX: J44.9 Chronic obstructive pulmonary disease, unspecified (principal)

== ENCOUNTER → 2021-09-18 | Outpatient (REF) | payer MEDICARE, MEDICAID ==
[2021-09-18 11:05] LABS: BASO # 0.1 10^3/uL (0.0-0.2); BASO % 0.7 % (0.0-1.0); EOS # 0.2 10^3/uL (0.0-0.5); EOS % 2.4 % (0.0-3.0); HEMATOCRIT 28.9 % (36.0-47.0); HEMOGLOBIN 8.8 g/dl (12.0-15.5); LYMPH # 2.1 10^3/uL (1.5-5.0); LYMPH % 23.7 % (24.0-44.0); MEAN CORPUSCULAR HEMOGLOBIN 27.7 pg (27.0-33.0); MEAN CORPUSCULAR HGB CONC 30.4 g/dl (32.0-36.5); MEAN CORPUSCULAR VOLUME 90.9 fl (80.0-96.0); MONO # 0.8 10^3/uL (0.0-0.8); MONO % 9.7 % (2.0-8.0); NEUTROPHILS # 5.5 10^3/uL (1.5-8.5); NEUTROPHILS % 63.3 % (36.0-66.0); PLATELET COUNT, AUTOMATED 418 10^3/uL (150-450); RED BLOOD COUNT 3.18 10^6/uL (4.00-5.40); WHITE BLOOD COUNT 8.6 10^3/uL (4.0-10.0)
== END ==
PROVIDERS: ATTEND Internal Medicine
DX: J44.9 Chronic obstructive pulmonary disease, unspecified (principal); D50.9 Iron deficiency anemia, unspecified

== ENCOUNTER → 2021-09-20 | Outpatient (REF) | payer MEDICARE, MEDICAID | PROVIDERS: ATTEND Internal Medicine | DX: D72.829 Elevated white blood cell count, unspecified (principal); D64.9 Anemia, unspecified ==

== ENCOUNTER → 2021-10-18 | Outpatient (REF) | payer MEDICARE, MEDICAID ==
[~2021-10-18] MED LIST changes: +ACET-907 PO; -AMIO200T3 PO; +AMIO200T49 PO; +BISA10SU20 PR; +ELIQ2.5T PO; +ENSU-12 PO; +ERGO500029 PO; +FURO20TA2 PO; +OMEP-173 PO; -OMEP-218 PO; -OMEP-221 PO; +OMEP40CA5 PO; +ROCA0.5C PO
[2021-10-18 12:27] LABS: HEMATOCRIT 25.2 % (36.0-47.0); HEMOGLOBIN 7.6 g/dl (12.0-15.5); MEAN CORPUSCULAR HEMOGLOBIN 27.6 pg (27.0-33.0); MEAN CORPUSCULAR HGB CONC 30.2 g/dl (32.0-36.5); MEAN CORPUSCULAR VOLUME 91.6 fl (80.0-96.0); PLATELET COUNT, AUTOMATED 493 10^3/uL (150-450); RED BLOOD COUNT 2.75 10^6/uL (4.00-5.40); WHITE BLOOD COUNT 18.5 10^3/uL (4.0-10.0)
[2021-10-18 13:13] LABS: CREATININE FOR GFR 2.05 MG/DL (0.55-1.30); POTASSIUM SERUM 5.3 MEQ/L (3.5-5.1)
== END ==
PROVIDERS: ATTEND Internal Medicine
DX: J44.9 Chronic obstructive pulmonary disease, unspecified (principal)

== ENCOUNTER → 2021-10-19 | Outpatient (REF) | payer MEDICARE, MEDICAID ==
[2021-10-19 10:53] LABS: HEMATOCRIT 25.1 % (36.0-47.0); HEMOGLOBIN 7.4 g/dl (12.0-15.5); MEAN CORPUSCULAR HEMOGLOBIN 27.1 pg (27.0-33.0); MEAN CORPUSCULAR HGB CONC 29.5 g/dl (32.0-36.5); MEAN CORPUSCULAR VOLUME 91.9 fl (80.0-96.0); PLATELET COUNT, AUTOMATED 475 10^3/uL (150-450); RED BLOOD COUNT 2.73 10^6/uL (4.00-5.40); WHITE BLOOD COUNT 15.8 10^3/uL (4.0-10.0)
[2021-10-19 11:29] LABS: CALCIUM LEVEL 10.3 MG/DL (8.8-10.2); CREATININE FOR GFR 1.85 MG/DL (0.55-1.30); GLOMERULAR FILTRATION RATE 28.1 (>39); POTASSIUM SERUM 4.1 MEQ/L (3.5-5.1)
== END ==
PROVIDERS: ATTEND Internal Medicine
DX: I50.9 Heart failure, unspecified (principal)

== ENCOUNTER → 2021-10-19 | Outpatient (CLI) | payer MEDICARE, MEDICAID ==
[~2021-10-19] MED LIST changes: -ACET-907 PO; +AMIO200T3 PO; -AMIO200T49 PO; -BISA10SU20 PR; -ELIQ2.5T PO; -ENSU-12 PO; -ERGO500029 PO; -FURO20TA2 PO; -OMEP-173 PO; +OMEP-218 PO; +OMEP-221 PO; -OMEP40CA5 PO; -ROCA0.5C PO
--- NOTE | 2021-10-19 09:28 | REP ---
INDICATION: FLUID IN THE CHECT COMPARISON: None. TECHNIQUE: AP and lateral. FINDINGS: Mediastinum and cardiac silhouette are stable with cardiomegaly again noted. Lung oshea demonstrate diffuse chronic interstitial changes. No focal consolidation, effusion, or pneumothorax. Skeletal structures demonstrate osteopenia, degenerative changes, old left shoulder and left rib fractures along with chronic compression deformities/vertebra plana in midthoracic vertebral bodies. IMPRESSION: Cardiomegaly and chronic appearing changes. <Electronically signed by Anastacio Ritchie > 10/19/21 [id number]
== END ==
LOC: M RAD 08:35
PROVIDERS: ATTEND Internal Medicine
DX: I50.9 Heart failure, unspecified (principal)

== ENCOUNTER → 2021-10-19 | Outpatient (CLI) | payer MEDICARE, MEDICAID | PROVIDERS: ATTEND Internal Medicine | DX: Z53.9 Procedure and treatment not carried out, unspecified reason (principal) ==

== ENCOUNTER → 2021-10-22 | Outpatient (REF) | payer MEDICARE, MEDICAID ==
[~2021-10-22] MED LIST changes: +ACET-907 PO; -AMIO200T3 PO; +AMIO200T49 PO; +BISA10SU20 PR; +ELIQ2.5T PO; +ENSU-12 PO; +ERGO500029 PO; +FURO20TA2 PO; +OMEP-173 PO; -OMEP-218 PO; -OMEP-221 PO; +OMEP40CA5 PO; +ROCA0.5C PO
== END ==
LOC: M LAB REF 12:20
PROVIDERS: ATTEND Physician Assistant
DX: D64.9 Anemia, unspecified (principal)

== ENCOUNTER 2021-10-23 08:49 | Outpatient (CLI) | payer MEDICARE, OTHER ==
[2021-10-23] VITALS (9 sets, daily range): BP systolic 104–142; BP diastolic 54–88
[~2021-10-23 08:49] MED LIST changes: -ACET-907 PO; +ACETAMINOPHEN TAB 650MG DOSE (2X325MG) PO ONE; -BISA10SU20 PR; -ELIQ2.5T PO; -ENSU-12 PO; -ERGO500029 PO; -FURO20TA2 PO; +FUROSEMIDE 20 MG TAB PO ONE; -ROCA0.5C PO; +diphenhydrAMINE 50MG CAP PO ONE
== END 2021-10-23 13:50 | disposition home or self-care (01) ==
LOC: M INFU 08:49
PROVIDERS: ATTEND Physician Assistant
DX: D64.9 Anemia, unspecified (principal); Z88.5 Allergy status to narcotic agent
CPT/HCPCS: 36430; P9016

== ENCOUNTER → 2021-10-24 | Outpatient (REF) ==
[~2021-10-24] MED LIST changes: -ACETAMINOPHEN TAB 650MG DOSE (2X325MG) PO ONE; -FUROSEMIDE 20 MG TAB PO ONE; -diphenhydrAMINE 50MG CAP PO ONE
[2021-10-24 08:27] LABS: HEMATOCRIT 31.4 % (36.0-47.0); MEAN CORPUSCULAR HEMOGLOBIN 28.5 pg (27.0-33.0); MEAN CORPUSCULAR HGB CONC 31.8 g/dl (32.0-36.5); MEAN CORPUSCULAR VOLUME 89.5 fl (80.0-96.0); PLATELET COUNT, AUTOMATED 425 10^3/uL (150-450); RED BLOOD COUNT 3.51 10^6/uL (4.00-5.40); WHITE BLOOD COUNT 10.2 10^3/uL (4.0-10.0)
== END ==
PROVIDERS: ATTEND Physician Assistant
DX: D64.9 Anemia, unspecified (principal)

== ENCOUNTER → 2021-11-15 | Outpatient (REF) | payer MEDICARE, OTHER ==
[~2021-11-15] MED LIST changes: -OMEP-173 PO; +OMEP-218 PO; +OMEP-221 PO; -OMEP40CA5 PO
== END ==
PROVIDERS: ATTEND Internal Medicine
DX: J44.9 Chronic obstructive pulmonary disease, unspecified (principal)

== ENCOUNTER → 2021-11-16 | Outpatient (REF) | payer MEDICARE, OTHER ==
[~2021-11-16] MED LIST changes: +AMIO200T3 PO; -AMIO200T49 PO
[2021-11-16 10:29] LABS: HEMATOCRIT 30.4 % (36.0-47.0); HEMOGLOBIN 9.1 g/dl (12.0-15.5); MEAN CORPUSCULAR HEMOGLOBIN 28.2 pg (27.0-33.0); MEAN CORPUSCULAR HGB CONC 29.9 g/dl (32.0-36.5); MEAN CORPUSCULAR VOLUME 94.1 fl (80.0-96.0); PLATELET COUNT, AUTOMATED 436 10^3/uL (150-450); RED BLOOD COUNT 3.23 10^6/uL (4.00-5.40); WHITE BLOOD COUNT 12.7 10^3/uL (4.0-10.0)
[2021-11-16 11:14] LABS: CALCIUM LEVEL 10.1 MG/DL (8.8-10.2); CREATININE FOR GFR 2.58 MG/DL (0.55-1.30); GLOMERULAR FILTRATION RATE 19.2 (>39)
== END ==
PROVIDERS: ATTEND Internal Medicine
DX: I50.9 Heart failure, unspecified (principal)

== ENCOUNTER → 2021-11-17 | Outpatient (REF) | payer MEDICARE, OTHER ==
[~2021-11-17] MED LIST changes: -AMIO200T3 PO; +AMIO200T49 PO
[2021-11-17 12:56] LABS: CALCIUM LEVEL 10.2 MG/DL (8.8-10.2); CREATININE FOR GFR 2.15 MG/DL (0.55-1.30); GLOMERULAR FILTRATION RATE 23.7 (>39); POTASSIUM SERUM 5.2 MEQ/L (3.5-5.1)
== END ==
PROVIDERS: ATTEND Internal Medicine
DX: E87.5 Hyperkalemia (principal)

== ENCOUNTER → 2021-11-23 | Outpatient (CLI) | payer MEDICARE, OTHER | LOC: M RAD 09:42 | PROVIDERS: ATTEND Physician Assistant | DX: M25.572 Pain in left ankle and joints of left foot (principal) ==

== ENCOUNTER → 2021-12-06 | Outpatient (CLI) | payer MEDICARE, OTHER ==
[~2021-12-06] MED LIST changes: +OMEP-173 PO; -OMEP-218 PO; -OMEP-221 PO; +OMEP40CA5 PO
== END ==
LOC: M RAD 12:33
PROVIDERS: ATTEND Internal Medicine
DX: S22.000A Wedge compression fracture of unspecified thoracic vertebra, initial encounter for closed fracture (principal); X58.XXXA Exposure to other specified factors, initial encounter; M85.88 Other specified disorders of bone density and structure, other site

== ENCOUNTER → 2021-12-12 | Outpatient (REF) | payer MEDICARE, OTHER ==
[~2021-12-12] MED LIST changes: +ACET-907 PO; +BISA10SU20 PR; +ELIQ2.5T PO; +ENSU-12 PO; +ERGO500029 PO; +FURO20TA2 PO; +ROCA0.5C PO
== END ==
PROVIDERS: ATTEND Internal Medicine
DX: N18.9 Chronic kidney disease, unspecified (principal); Z79.899 Other long term (current) drug therapy

== ENCOUNTER 2021-12-13 17:31 | Inpatient (IN) | payer MEDICARE, MEDICAID ==
[~2021-12-13] VITALS: Ht 154.9 cm; Wt 56.5 kg
[~2021-12-13 17:31] MED LIST changes: -ACET-907 PO; -BISA10SU20 PR; -ELIQ2.5T PO; -ENSU-12 PO; -ERGO500029 PO; -FURO20TA2 PO; -ROCA0.5C PO
[2021-12-13 18:45] LABS: BASO % 0.3 % (0.0-1.0); EOS # 0.2 10^3/uL (0.0-0.5); EOS % 1.3 % (0.0-3.0); LYMPH # 1.7 10^3/uL (1.5-5.0); LYMPH % 14.8 % (24.0-44.0); MEAN CORPUSCULAR HEMOGLOBIN 28.4 pg (27.0-33.0); MEAN CORPUSCULAR HGB CONC 30.6 g/dl (32.0-36.5); MEAN CORPUSCULAR VOLUME 92.9 fl (80.0-96.0); MONO # 0.9 10^3/uL (0.0-0.8); MONO % 7.9 % (2.0-8.0); NEUTROPHILS # 8.8 10^3/uL (1.5-8.5); NEUTROPHILS % 75.2 % (36.0-66.0); PLATELET COUNT, AUTOMATED 452 10^3/uL (150-450); RED BLOOD COUNT 2.25 10^6/uL (4.00-5.40); WHITE BLOOD COUNT 11.7 10^3/uL (4.0-10.0)
[2021-12-13 18:49] LABS: HEMATOCRIT 20.9 % (36.0-47.0); HEMOGLOBIN 6.4 g/dl (12.0-15.5)
[2021-12-13 19:12] LABS: INR 1.07; PROTHROMBIN TIME 14.3 SECONDS (12.7-14.5)
[2021-12-13 19:30] LABS: ALBUMIN 2.8 GM/DL (3.2-5.2); ALT/SGPT 11 U/L (12-78); BILIRUBIN,DIRECT < 0.1 MG/DL (0.0-0.2); BILIRUBIN,TOTAL < 0.1 MG/DL (0.2-1.0); BLOOD UREA NITROGEN 46 MG/DL (7-18); CALCIUM LEVEL 10.6 MG/DL (8.8-10.2); CARBON DIOXIDE LEVEL 25 MEQ/L (21-32); CHLORIDE LEVEL 106 MEQ/L (98-107); CREATININE FOR GFR 2.21 MG/DL (0.55-1.30); GLOMERULAR FILTRATION RATE 22.9 (>39); GLUCOSE, FASTING 211 MG/DL (70-100); IRON (FE) 13 UG/DL (50-170); NT-PRO BNP 4770 PG/ML (<450); PERCENT SATURATION 3.9 % (13.2-45.0); POTASSIUM SERUM 4.6 MEQ/L (3.5-5.1); SODIUM LEVEL 136 MEQ/L (136-145); TOTAL IRON BINDING CAPACITY 331 UG/DL (250-450); TOTAL PROTEIN 5.9 GM/DL (6.4-8.2)
[2021-12-13] MEDS ORDERED: MAALOX 30 ML SUSP *UDC PO PRN (20:30)
[2021-12-13] MEDS ORDERED: MOM 30ML SUSPENSION UDC PO PRN (20:30)
[2021-12-13] MEDS: traZODone 100 MG TAB PO SCH (21:00)
[2021-12-13] MEDS ORDERED: FUROSEMIDE 20MG/2ML VIAL (J1940) IV ONE (21:05)
[2021-12-13 21:36] VITALS: BP 120/54
[2021-12-13 21:50] VITALS: BP 119/74
[2021-12-13 23:10] VITALS: BP 150/66
[2021-12-13] MEDS: ACETAMINOPHEN TAB 650MG DOSE (2X325MG) PO PRN (23:17)
[2021-12-13] MEDS ORDERED: BISA10SU20 PR (23:24)
[2021-12-13] MEDS ORDERED: GABA-1171 PO (23:24)
[2021-12-13] MEDS ORDERED: ROCA0.5C PO (23:24)
[2021-12-13] MEDS ORDERED: ACET-907 PO (23:24)
[2021-12-13] MEDS ORDERED: ERGO500029 PO (23:24)
[2021-12-13] MEDS ORDERED: ROPI1TAB3 PO (23:24)
[2021-12-13] MEDS ORDERED: FURO20TA2 PO (23:24)
[2021-12-13] MEDS ORDERED: FLEEENE12 PR (23:24)
[2021-12-13] MEDS ORDERED: FERR1TAB8 PO (23:24)
[2021-12-13] MEDS ORDERED: BUSP5TA PO (23:24)
[2021-12-13] MEDS ORDERED: ENSU-12 PO (23:24)
[2021-12-13] MEDS ORDERED: HYDR-4468 PO (23:24)
[2021-12-13] MEDS ORDERED: ALBU83IN INH (23:24)
[2021-12-13] MEDS ORDERED: ELIQ2.5T PO (23:24)
[2021-12-13] MEDS ORDERED: TRAZ-257 PO (23:24)
[2021-12-13] MEDS ORDERED: HOME MED LIST COMPLETE! XX SCH (23:30)
[2021-12-14] MEDS ORDERED: BISACODYL 10 MG SUPP PR PRN (02:30)
[2021-12-14 03:00] VITALS: BP 102/65
[2021-12-14 06:39] LABS: BASO # 0.1 10^3/uL (0.0-0.2); BASO % 0.7 % (0.0-1.0); EOS # 0.4 10^3/uL (0.0-0.5); HEMOGLOBIN 7.6 g/dl (12.0-15.5); LYMPH # 1.9 10^3/uL (1.5-5.0); LYMPH % 21.5 % (24.0-44.0); MEAN CORPUSCULAR HEMOGLOBIN 28.7 pg (27.0-33.0); MEAN CORPUSCULAR HGB CONC 31.7 g/dl (32.0-36.5); MEAN CORPUSCULAR VOLUME 90.6 fl (80.0-96.0); MONO % 11.8 % (2.0-8.0); NEUTROPHILS # 5.4 10^3/uL (1.5-8.5); NEUTROPHILS % 61.5 % (36.0-66.0); PLATELET COUNT, AUTOMATED 472 10^3/uL (150-450); RED BLOOD COUNT 2.65 10^6/uL (4.00-5.40); WHITE BLOOD COUNT 8.8 10^3/uL (4.0-10.0)
[2021-12-14 07:03] LABS: ALBUMIN 2.3 GM/DL (3.2-5.2); BILIRUBIN,TOTAL 0.2 MG/DL (0.2-1.0); CALCIUM LEVEL 9.9 MG/DL (8.8-10.2); CREATININE FOR GFR 1.85 MG/DL (0.55-1.30); GLOMERULAR FILTRATION RATE 28.1 (>39); POTASSIUM SERUM 3.9 MEQ/L (3.5-5.1); TOTAL PROTEIN 5.3 GM/DL (6.4-8.2)
[2021-12-14] MEDS: ALBUTEROL SULFATE 2.5 MG/0.5 ML INH NEB SOLN INH SCH ×4 (07:34→20:00)
[2021-12-14] MEDS: rOPINIRole 1MG TAB PO SCH ×2 (10:29→20:21)
[2021-12-14] MEDS: FERROUS SULFATE 325MG TAB PO SCH (10:30)
[2021-12-14] MEDS: LACTOBACILLUS ACIDOPHILUS CAP (BACID) PO SCH ×2 (10:30→20:21)
[2021-12-14] MEDS: allopurinoL 100 MG TAB PO SCH (10:30)
[2021-12-14] MEDS: busPIRone 5 MG TAB PO SCH ×2 (10:30→20:21)
[2021-12-14] MEDS: OMEPRAZOLE 20MG CAP PO SCH (10:31)
[2021-12-14] MEDS: APIXABAN 2.5 MG TAB (ELIQUIS) PO SCH ×2 (10:31→20:21)
[2021-12-14] MEDS: GABAPENTIN 100 MG CAP PO SCH ×2 (10:32→20:21)
[2021-12-14] MEDS: HYDROCORTISONE 5MG TABLET PO SCH ×2 (10:32→20:21)
[2021-12-14] MEDS: FUROSEMIDE 20 MG TAB PO SCH ×2 (10:32→17:16)
[2021-12-14 14:00] VITALS: BP 128/57
[2021-12-14 14:55] LABS: HEMATOCRIT 24.8 % (36.0-47.0); HEMOGLOBIN 7.9 g/dl (12.0-15.5); MEAN CORPUSCULAR HGB CONC 31.9 g/dl (32.0-36.5); MEAN CORPUSCULAR VOLUME 91.2 fl (80.0-96.0); PLATELET COUNT, AUTOMATED 479 10^3/uL (150-450); RED BLOOD COUNT 2.72 10^6/uL (4.00-5.40); WHITE BLOOD COUNT 11.7 10^3/uL (4.0-10.0)
[2021-12-14 15:48] LABS: MAGNESIUM LEVEL 0.9 MG/DL (1.7-2.2)
[2021-12-14] MEDS: MAG SULF 1GM/100ML (MAG RUN) 1 GM in IV 1 EA IV SCH ×3 (17:17→18:43)
[2021-12-14 20:00] VITALS: BP 129/57
[2021-12-14] MEDS: traZODone 100 MG TAB PO SCH (20:21)
[2021-12-14] MEDS: ACETAMINOPHEN TAB 650MG DOSE (2X325MG) PO PRN (20:21)
[2021-12-15 04:00] VITALS: BP 125/57
[2021-12-15 05:29] LABS: HEMATOCRIT 23.4 % (36.0-47.0); HEMOGLOBIN 7.5 g/dl (12.0-15.5); MEAN CORPUSCULAR HEMOGLOBIN 28.6 pg (27.0-33.0); MEAN CORPUSCULAR HGB CONC 32.1 g/dl (32.0-36.5); MEAN CORPUSCULAR VOLUME 89.3 fl (80.0-96.0); PLATELET COUNT, AUTOMATED 485 10^3/uL (150-450); RED BLOOD COUNT 2.62 10^6/uL (4.00-5.40); WHITE BLOOD COUNT 9.9 10^3/uL (4.0-10.0)
[2021-12-15 08:00] VITALS: BP 121/56
[2021-12-15] MEDS: AMIODARONE 200 MG TAB (PACERONE) PO SCH (08:20)
[2021-12-15] MEDS: OMEPRAZOLE 20MG CAP PO SCH (08:20)
[2021-12-15] MEDS: rOPINIRole 1MG TAB PO SCH ×2 (08:20→20:40)
[2021-12-15] MEDS: FERROUS SULFATE 325MG TAB PO SCH (08:20)
[2021-12-15] MEDS: FUROSEMIDE 20 MG TAB PO SCH ×2 (08:20→17:00)
[2021-12-15] MEDS: GABAPENTIN 100 MG CAP PO SCH ×2 (08:20→20:40)
[2021-12-15] MEDS: APIXABAN 2.5 MG TAB (ELIQUIS) PO SCH ×2 (08:20→20:40)
[2021-12-15] MEDS: LACTOBACILLUS ACIDOPHILUS CAP (BACID) PO SCH ×2 (08:20→20:40)
[2021-12-15] MEDS: allopurinoL 100 MG TAB PO SCH (08:20)
[2021-12-15] MEDS: busPIRone 5 MG TAB PO SCH ×2 (08:21→20:40)
[2021-12-15] MEDS: HYDROCORTISONE 5MG TABLET PO SCH ×2 (08:21→20:39)
[2021-12-15] MEDS: ALBUTEROL SULFATE 2.5 MG/0.5 ML INH NEB SOLN INH SCH ×4 (08:40→21:33)
[2021-12-15 14:00] VITALS: BP 136/57
[2021-12-15 19:27] VITALS: BP 111/46
[2021-12-15 20:32] VITALS: BP 109/46
[2021-12-15] MEDS: traZODone 100 MG TAB PO SCH (20:39)
[2021-12-15] MEDS: ACETAMINOPHEN TAB 650MG DOSE (2X325MG) PO PRN (20:39)
[2021-12-16 04:49] VITALS: BP 134/56
[2021-12-16] MEDS: ALBUTEROL SULFATE 2.5 MG/0.5 ML INH NEB SOLN INH SCH ×3 (07:15→20:27)
[2021-12-16 08:38] LABS: HEMATOCRIT 23.3 % (36.0-47.0); HEMOGLOBIN 7.2 g/dl (12.0-15.5); MEAN CORPUSCULAR HEMOGLOBIN 28.5 pg (27.0-33.0); MEAN CORPUSCULAR HGB CONC 30.9 g/dl (32.0-36.5); MEAN CORPUSCULAR VOLUME 92.1 fl (80.0-96.0); PLATELET COUNT, AUTOMATED 509 10^3/uL (150-450); RED BLOOD COUNT 2.53 10^6/uL (4.00-5.40); WHITE BLOOD COUNT 12.4 10^3/uL (4.0-10.0)
[2021-12-16 08:54] LABS: CALCIUM LEVEL 9.8 MG/DL (8.8-10.2); CREATININE FOR GFR 1.78 MG/DL (0.55-1.30); GLOMERULAR FILTRATION RATE 29.4 (>39)
[2021-12-16] MEDS: rOPINIRole 1MG TAB PO SCH ×2 (09:08→21:10)
[2021-12-16] MEDS: busPIRone 5 MG TAB PO SCH ×2 (09:09→21:10)
[2021-12-16] MEDS: LACTOBACILLUS ACIDOPHILUS CAP (BACID) PO SCH ×2 (09:09→21:10)
[2021-12-16] MEDS: GABAPENTIN 100 MG CAP PO SCH ×2 (09:09→21:10)
[2021-12-16] MEDS: FERROUS SULFATE 325MG TAB PO SCH (09:09)
[2021-12-16] MEDS: APIXABAN 2.5 MG TAB (ELIQUIS) PO SCH ×2 (09:09→21:10)
[2021-12-16] MEDS: HYDROCORTISONE 5MG TABLET PO SCH ×2 (09:09→21:10)
[2021-12-16] MEDS: allopurinoL 100 MG TAB PO SCH (09:09)
[2021-12-16] MEDS: FUROSEMIDE 20 MG TAB PO SCH (09:09)
[2021-12-16] MEDS: OMEPRAZOLE 20MG CAP PO SCH (09:09)
[2021-12-16 19:40] LABS: MAGNESIUM LEVEL 1.5 MG/DL (1.7-2.2)
[2021-12-16] MEDS: traZODone 100 MG TAB PO SCH (21:10)
[2021-12-16] MEDS: ACETAMINOPHEN TAB 650MG DOSE (2X325MG) PO PRN (21:10)
[2021-12-17 06:00] VITALS: BP 131/55
[2021-12-17] MEDS: ALBUTEROL SULFATE 2.5 MG/0.5 ML INH NEB SOLN INH SCH ×4 (07:10→20:35)
[2021-12-17 07:35] LABS: HEMATOCRIT 23.6 % (36.0-47.0); HEMOGLOBIN 7.2 g/dl (12.0-15.5); MEAN CORPUSCULAR HEMOGLOBIN 28.6 pg (27.0-33.0); MEAN CORPUSCULAR HGB CONC 30.5 g/dl (32.0-36.5); MEAN CORPUSCULAR VOLUME 93.7 fl (80.0-96.0); PLATELET COUNT, AUTOMATED 477 10^3/uL (150-450); RED BLOOD COUNT 2.52 10^6/uL (4.00-5.40); WHITE BLOOD COUNT 10.3 10^3/uL (4.0-10.0)
[2021-12-17 08:00] LABS: CALCIUM LEVEL 9.4 MG/DL (8.8-10.2); CREATININE FOR GFR 2.08 MG/DL (0.55-1.30); GLOMERULAR FILTRATION RATE 24.6 (>39); POTASSIUM SERUM 3.8 MEQ/L (3.5-5.1)
[2021-12-17] MEDS: rOPINIRole 1MG TAB PO SCH ×2 (09:06→20:19)
[2021-12-17] MEDS: GABAPENTIN 100 MG CAP PO SCH ×2 (09:06→20:18)
[2021-12-17] MEDS: allopurinoL 100 MG TAB PO SCH (09:06)
[2021-12-17] MEDS: HYDROCORTISONE 5MG TABLET PO SCH ×2 (09:06→20:19)
[2021-12-17] MEDS: busPIRone 5 MG TAB PO SCH ×2 (09:06→20:19)
[2021-12-17] MEDS: OMEPRAZOLE 20MG CAP PO SCH (09:06)
[2021-12-17] MEDS: APIXABAN 2.5 MG TAB (ELIQUIS) PO SCH ×2 (09:06→20:19)
[2021-12-17] MEDS: LACTOBACILLUS ACIDOPHILUS CAP (BACID) PO SCH ×2 (09:06→20:19)
[2021-12-17] MEDS: FERROUS SULFATE 325MG TAB PO SCH (09:06)
[2021-12-17] MEDS: FUROSEMIDE 20 MG TAB PO SCH (09:07)
[2021-12-17 16:00] LABS: MAGNESIUM LEVEL 1.4 MG/DL (1.7-2.2)
[2021-12-17] MEDS: traZODone 100 MG TAB PO SCH (20:18)
[2021-12-17] MEDS: ACETAMINOPHEN TAB 650MG DOSE (2X325MG) PO PRN (20:19)
[2021-12-18 06:00] VITALS: BP 124/52
[2021-12-18 07:26] LABS: HEMATOCRIT 22.3 % (36.0-47.0); MEAN CORPUSCULAR HEMOGLOBIN 28.2 pg (27.0-33.0); MEAN CORPUSCULAR VOLUME 93.7 fl (80.0-96.0); PLATELET COUNT, AUTOMATED 447 10^3/uL (150-450); RED BLOOD COUNT 2.38 10^6/uL (4.00-5.40); WHITE BLOOD COUNT 9.3 10^3/uL (4.0-10.0)
[2021-12-18] MEDS: ALBUTEROL SULFATE 2.5 MG/0.5 ML INH NEB SOLN INH SCH ×4 (07:34→20:30)
[2021-12-18 07:41] LABS: HEMOGLOBIN 6.7 g/dl (12.0-15.5)
[2021-12-18 07:42] LABS: CREATININE FOR GFR 1.99 MG/DL (0.55-1.30); GLOMERULAR FILTRATION RATE 25.9 (>39); POTASSIUM SERUM 3.9 MEQ/L (3.5-5.1)
[2021-12-18] MEDS: LACTOBACILLUS ACIDOPHILUS CAP (BACID) PO SCH ×2 (09:25→20:20)
[2021-12-18] MEDS: HYDROCORTISONE 5MG TABLET PO SCH ×2 (09:25→20:20)
[2021-12-18] MEDS: OMEPRAZOLE 20MG CAP PO SCH (09:25)
[2021-12-18] MEDS: FERROUS SULFATE 325MG TAB PO SCH (09:25)
[2021-12-18] MEDS: APIXABAN 2.5 MG TAB (ELIQUIS) PO SCH ×2 (09:25→20:20)
[2021-12-18] MEDS: FUROSEMIDE 20 MG TAB PO SCH (09:26)
[2021-12-18] MEDS: allopurinoL 100 MG TAB PO SCH (09:26)
[2021-12-18] MEDS: busPIRone 5 MG TAB PO SCH ×2 (09:26→20:20)
[2021-12-18] MEDS: MAGNESIUM OXIDE 400MG TAB (MAG-OX) PO SCH (09:26)
[2021-12-18] MEDS: rOPINIRole 1MG TAB PO SCH ×2 (09:26→20:20)
[2021-12-18] MEDS: AMIODARONE 200 MG TAB (PACERONE) PO SCH (09:26)
[2021-12-18] MEDS: GABAPENTIN 100 MG CAP PO SCH ×2 (09:27→20:20)
[2021-12-18 10:45] VITALS: BP 120/50
[2021-12-18 11:00] VITALS: BP 119/50
[2021-12-18 11:45] VITALS: BP 119/50
[2021-12-18 12:42] VITALS: BP 128/56
[2021-12-18 14:10] VITALS: BP 116/46
[2021-12-18 16:25] LABS: MAGNESIUM LEVEL 1.4 MG/DL (1.7-2.2)
[2021-12-18] MEDS: traZODone 100 MG TAB PO SCH (20:20)
[2021-12-19 05:40] VITALS: BP 146/76
[2021-12-19 05:49] LABS: HEMATOCRIT 24.9 % (36.0-47.0); HEMOGLOBIN 7.7 g/dl (12.0-15.5); MEAN CORPUSCULAR HEMOGLOBIN 29.2 pg (27.0-33.0); MEAN CORPUSCULAR HGB CONC 30.9 g/dl (32.0-36.5); MEAN CORPUSCULAR VOLUME 94.3 fl (80.0-96.0); PLATELET COUNT, AUTOMATED 441 10^3/uL (150-450); RED BLOOD COUNT 2.64 10^6/uL (4.00-5.40); WHITE BLOOD COUNT 9.7 10^3/uL (4.0-10.0)
[2021-12-19 06:08] LABS: CALCIUM LEVEL 9.2 MG/DL (8.8-10.2); CREATININE FOR GFR 1.73 MG/DL (0.55-1.30); GLOMERULAR FILTRATION RATE 30.4 (>39); POTASSIUM SERUM 4.2 MEQ/L (3.5-5.1)
[2021-12-19] MEDS: ALBUTEROL SULFATE 2.5 MG/0.5 ML INH NEB SOLN INH SCH ×2 (07:28→11:18)
[2021-12-19] MEDS: OMEPRAZOLE 20MG CAP PO SCH (08:48)
[2021-12-19] MEDS: APIXABAN 2.5 MG TAB (ELIQUIS) PO SCH (08:48)
[2021-12-19] MEDS: GABAPENTIN 100 MG CAP PO SCH (08:49)
[2021-12-19] MEDS: LACTOBACILLUS ACIDOPHILUS CAP (BACID) PO SCH (08:49)
[2021-12-19] MEDS: MAGNESIUM OXIDE 400MG TAB (MAG-OX) PO SCH (08:49)
[2021-12-19] MEDS: FUROSEMIDE 20 MG TAB PO SCH (08:49)
[2021-12-19] MEDS: rOPINIRole 1MG TAB PO SCH (08:49)
[2021-12-19 08:50] VITALS: BP 132/57
[2021-12-19] MEDS: HYDROCORTISONE 5MG TABLET PO SCH (08:50)
[2021-12-19] MEDS: allopurinoL 100 MG TAB PO SCH (08:50)
[2021-12-19] MEDS: busPIRone 5 MG TAB PO SCH (08:50)
[2021-12-19] MEDS: FERROUS SULFATE 325MG TAB PO SCH (08:50)
[2021-12-19] MEDS ORDERED: MAGN400T2 PO (11:14)
[2021-12-19] MEDS ORDERED: FERR1TAB8 PO (11:14)
[2021-12-19] MEDS ORDERED: FURO20TA2 PO (11:14)
[2021-12-19 17:59] LABS: MAGNESIUM LEVEL 1.4 MG/DL (1.7-2.2)
== END 2021-12-19 11:31 | DRG 812 ==
LOC: EDBD 17:31 → M ED 17:31 → M ED INP 20:30 → ENRESERV 12-14 02:23 → M MS5PR 12-14 02:35
PROVIDERS: ADMIT Family Medicine; ATTEND Internal Medicine
PROC: 30233N1 Transfusion of Nonautologous Red Blood Cells into Peripheral Vein, Percutaneous Approach (ICD-10-PCS; principal; 2021-12-13)
DX: D50.9 Iron deficiency anemia, unspecified (principal); I50.32 Chronic diastolic (congestive) heart failure; I48.20 Chronic atrial fibrillation, unspecified; E27.40 Unspecified adrenocortical insufficiency; N18.30 Chronic kidney disease, stage 3 unspecified; Z79.899 Other long term (current) drug therapy; J44.9 Chronic obstructive pulmonary disease, unspecified; E11.9 Type 2 diabetes mellitus without complications; Z86.73 Personal history of transient ischemic attack (TIA), and cerebral infarction without residual deficits; Z79.01 Long term (current) use of anticoagulants; G25.81 Restless legs syndrome; M19.90 Unspecified osteoarthritis, unspecified site; D72.829 Elevated white blood cell count, unspecified; E86.0 Dehydration; Z88.8 Allergy status to other drugs, medicaments and biological substances; I35.0 Nonrheumatic aortic (valve) stenosis; I27.20 Pulmonary hypertension, unspecified; Z98.41 Cataract extraction status, right eye; Z98.42 Cataract extraction status, left eye; Z87.891 Personal history of nicotine dependence

== ENCOUNTER → 2021-12-13 | Outpatient (REF) | payer MEDICARE, OTHER ==
[2021-12-13 15:49] LABS: MEAN CORPUSCULAR HEMOGLOBIN 28.4 pg (27.0-33.0); MEAN CORPUSCULAR HGB CONC 29.7 g/dl (32.0-36.5); MEAN CORPUSCULAR VOLUME 95.9 fl (80.0-96.0); PLATELET COUNT, AUTOMATED 489 10^3/uL (150-450); RED BLOOD COUNT 2.18 10^6/uL (4.00-5.40); WHITE BLOOD COUNT 12.2 10^3/uL (4.0-10.0)
[2021-12-13 16:01] LABS: HEMATOCRIT 20.9 % (36.0-47.0); HEMOGLOBIN 6.2 g/dl (12.0-15.5)
[2021-12-13 16:12] LABS: CALCIUM LEVEL 10.4 MG/DL (8.8-10.2); CREATININE FOR GFR 2.17 MG/DL (0.55-1.30); GLOMERULAR FILTRATION RATE 23.4 (>39); POTASSIUM SERUM 4.8 MEQ/L (3.5-5.1)
== END ==
PROVIDERS: ATTEND Internal Medicine
DX: J44.9 Chronic obstructive pulmonary disease, unspecified (principal)

== ENCOUNTER → 2021-12-14 | Outpatient (REF) | payer MEDICARE, OTHER ==
[~2021-12-14] MED LIST changes: +ACET-907 PO; +BISA10SU20 PR; +ELIQ2.5T PO; +ENSU-12 PO; +ERGO500029 PO; +FURO20TA2 PO; +ROCA0.5C PO
== END ==
PROVIDERS: ATTEND Physician Assistant
DX: E86.0 Dehydration (principal); Z53.9 Procedure and treatment not carried out, unspecified reason

== ENCOUNTER → 2021-12-15 | Outpatient (REF) | payer MEDICARE, OTHER | PROVIDERS: ATTEND Physician Assistant | DX: E86.0 Dehydration (principal); Z53.9 Procedure and treatment not carried out, unspecified reason ==

== ENCOUNTER → 2021-12-20 | Outpatient (REF) | payer MEDICARE, OTHER ==
[2021-12-20 10:11] LABS: HEMATOCRIT 25.8 % (36.0-47.0); HEMOGLOBIN 8.1 g/dl (12.0-15.5); MEAN CORPUSCULAR HEMOGLOBIN 30.1 pg (27.0-33.0); MEAN CORPUSCULAR HGB CONC 31.4 g/dl (32.0-36.5); MEAN CORPUSCULAR VOLUME 95.9 fl (80.0-96.0); PLATELET COUNT, AUTOMATED 444 10^3/uL (150-450); RED BLOOD COUNT 2.69 10^6/uL (4.00-5.40); WHITE BLOOD COUNT 9.3 10^3/uL (4.0-10.0)
[2021-12-20 10:38] LABS: TOTAL PROTEIN 5.3 GM/DL (6.4-8.2)
[2021-12-20 10:48] LABS: VITAMIN B12 LEVEL 217 PG/ML (247-911)
[2021-12-20 10:49] LABS: FOLATE 7.9 NG/ML (>5.4)
[2021-12-21 10:00] LABS: ALBUMIN 2.89 GM/DL (3.29-5.55); ALBUMIN % 54.5 % (55.8-66.1)
[2021-12-21 10:01] LABS: ALPHA-1-GLOBULIN % 8.5 % (2.9-4.9); ALPHA-1-GLOBULINS 0.45 GM/DL (0.17-0.41); ALPHA-2-GLOBULINS 0.69 GM/DL (0.42-0.99); ALPHA-2-GLOBULINS % 13.1 % (7.1-11.8); BETA-1-GLOBULINS 0.37 GM/DL (0.28-0.60); BETA-2-GLOBULINS 0.31 GM/DL (0.19-0.55); BETA-2-GLOBULINS % 5.8 % (3.2-6.5); GAMMA GLOBULIN % 11.1 % (11.1-18.8); GAMMA GLOBULINS 0.59 GM/DL (0.65-1.58)
== END ==
PROVIDERS: ATTEND Physician Assistant
DX: D64.9 Anemia, unspecified (principal)

== ENCOUNTER → 2021-12-20 | Outpatient (REF) | payer MEDICARE, OTHER | PROVIDERS: ATTEND Physician Assistant | DX: D64.9 Anemia, unspecified (principal) ==

== ENCOUNTER → 2021-12-20 | Outpatient (REF) | payer MEDICARE, OTHER | PROVIDERS: ATTEND Physician Assistant | DX: D64.9 Anemia, unspecified (principal) ==

== ENCOUNTER → 2021-12-20 | Outpatient (REF) | payer MEDICARE, OTHER | PROVIDERS: ATTEND Physician Assistant | DX: D64.9 Anemia, unspecified (principal) ==

== ENCOUNTER → 2021-12-21 | Outpatient (REF) | payer MEDICARE, OTHER ==
[2021-12-21 10:32] LABS: HEMATOCRIT 26.5 % (36.0-47.0); HEMOGLOBIN 8.2 g/dl (12.0-15.5); MEAN CORPUSCULAR HEMOGLOBIN 29.7 pg (27.0-33.0); MEAN CORPUSCULAR HGB CONC 30.9 g/dl (32.0-36.5); PLATELET COUNT, AUTOMATED 451 10^3/uL (150-450); RED BLOOD COUNT 2.76 10^6/uL (4.00-5.40); WHITE BLOOD COUNT 8.9 10^3/uL (4.0-10.0)
== END ==
PROVIDERS: ATTEND Physician Assistant
DX: D64.9 Anemia, unspecified (principal)

== ENCOUNTER → 2021-12-22 | Outpatient (REF) | payer MEDICARE, OTHER | PROVIDERS: ATTEND Internal Medicine | DX: D64.9 Anemia, unspecified (principal); Z53.9 Procedure and treatment not carried out, unspecified reason ==

== ENCOUNTER → 2021-12-23 | Outpatient (REF) | PROVIDERS: ATTEND Internal Medicine | DX: D64.9 Anemia, unspecified (principal) ==

== ENCOUNTER → 2021-12-25 | Outpatient (REF) | payer MEDICARE, OTHER ==
[2021-12-25 11:53] LABS: HEMATOCRIT 29.1 % (36.0-47.0); HEMOGLOBIN 8.8 g/dl (12.0-15.5); MEAN CORPUSCULAR HEMOGLOBIN 29.6 pg (27.0-33.0); MEAN CORPUSCULAR HGB CONC 30.2 g/dl (32.0-36.5); PLATELET COUNT, AUTOMATED 420 10^3/uL (150-450); RED BLOOD COUNT 2.97 10^6/uL (4.00-5.40); WHITE BLOOD COUNT 12.5 10^3/uL (4.0-10.0)
== END ==
PROVIDERS: ATTEND Physician Assistant
DX: D64.9 Anemia, unspecified (principal)

== ENCOUNTER → 2021-12-27 | Outpatient (REF) | payer MEDICARE, OTHER ==
[2021-12-27 11:38] LABS: HEMATOCRIT 29.6 % (36.0-47.0); HEMOGLOBIN 9.1 g/dl (12.0-15.5); MEAN CORPUSCULAR HEMOGLOBIN 29.9 pg (27.0-33.0); MEAN CORPUSCULAR HGB CONC 30.7 g/dl (32.0-36.5); MEAN CORPUSCULAR VOLUME 97.4 fl (80.0-96.0); PLATELET COUNT, AUTOMATED 387 10^3/uL (150-450); RED BLOOD COUNT 3.04 10^6/uL (4.00-5.40); WHITE BLOOD COUNT 13.1 10^3/uL (4.0-10.0)
[2021-12-27 12:08] LABS: CALCIUM LEVEL 10.5 MG/DL (8.8-10.2); CREATININE FOR GFR 1.93 MG/DL (0.55-1.30); GLOMERULAR FILTRATION RATE 26.8 (>39); POTASSIUM SERUM 3.9 MEQ/L (3.5-5.1)
== END ==
PROVIDERS: ATTEND Physician Assistant
DX: E53.8 Deficiency of other specified B group vitamins (principal)

== ENCOUNTER → 2021-12-27 | Outpatient (REF) | payer MEDICARE, OTHER | PROVIDERS: ATTEND Physician Assistant | DX: D64.9 Anemia, unspecified (principal) ==

== ENCOUNTER 2021-12-28 10:49 | Outpatient (CLI) | payer MEDICAID, MEDICARE ==
[~2021-12-28 10:49] MED LIST changes: +IRON SUCROSE 25 MG in NS 25 ML IV ONE; +IRON SUCROSE 475 MG in NS 250 ML IV ONE
[2021-12-28 11:25] VITALS: BP 153/70
[2021-12-28 12:30] VITALS: BP 148/71
[2021-12-28 13:30] VITALS: BP 154/69
[2021-12-28 14:29] VITALS: BP 142/62
[2021-12-28 15:20] VITALS: BP 162/75
== END 2021-12-28 15:25 | disposition home or self-care (01) ==
LOC: M INFU 10:49
PROVIDERS: ATTEND Physician Assistant
DX: D50.9 Iron deficiency anemia, unspecified (principal); Z88.5 Allergy status to narcotic agent
CPT/HCPCS: 96365; 96366; J1756

== ENCOUNTER → 2022-01-01 | Outpatient (REF) | payer MEDICARE ==
[~2022-01-01] MED LIST changes: -IRON SUCROSE 25 MG in NS 25 ML IV ONE; -IRON SUCROSE 475 MG in NS 250 ML IV ONE
[2022-01-01 17:19] LABS: PERCENT SATURATION 8.6 % (13.2-45.0)
== END ==
LOC: M LAB REF 16:13
PROVIDERS: ATTEND Internal Medicine
DX: D50.9 Iron deficiency anemia, unspecified (principal)

== ENCOUNTER 2022-01-12 00:53 | Emergency (ER) | payer MEDICARE ==
[~2022-01-12] VITALS: Ht 152.4 cm; Wt 59.8 kg
[2022-01-12] MEDS ORDERED: ALDA25TA2 PO (01:23)
[2022-01-12] MEDS ORDERED: METF10004 PO (01:24)
[2022-01-12 01:25] LABS: BASO # 0.1 10^3/uL (0.0-0.2); BASO % 0.8 % (0.0-1.0); EOS # 0.1 10^3/uL (0.0-0.5); EOS % 0.9 % (0.0-3.0); HEMATOCRIT 34.2 % (36.0-47.0); HEMOGLOBIN 10.5 g/dl (12.0-15.5); LYMPH # 1.7 10^3/uL (1.5-5.0); LYMPH % 11.2 % (24.0-44.0); MEAN CORPUSCULAR HEMOGLOBIN 29.7 pg (27.0-33.0); MEAN CORPUSCULAR HGB CONC 30.7 g/dl (32.0-36.5); MEAN CORPUSCULAR VOLUME 96.6 fl (80.0-96.0); MONO % 6.5 % (2.0-8.0); NEUTROPHILS # 12.3 10^3/uL (1.5-8.5); NEUTROPHILS % 79.8 % (36.0-66.0); PLATELET COUNT, AUTOMATED 429 10^3/uL (150-450); RED BLOOD COUNT 3.54 10^6/uL (4.00-5.40); WHITE BLOOD COUNT 15.4 10^3/uL (4.0-10.0)
[2022-01-12 01:38] VITALS: BP 100/54
[2022-01-12 01:50] LABS: CK-MB VALUE MASS 1.7 NG/ML (<3.6); MB/CK RELATIVE INDEX 4.72 (< OR =4)
[2022-01-12 01:53] LABS: ALBUMIN 2.9 GM/DL (3.2-5.2); ALT/SGPT 15 U/L (12-78); BILIRUBIN,DIRECT < 0.1 MG/DL (0.0-0.2); BILIRUBIN,TOTAL 0.2 MG/DL (0.2-1.0); BLOOD UREA NITROGEN 61 MG/DL (7-18); CALCIUM LEVEL 10.7 MG/DL (8.8-10.2); CARBON DIOXIDE LEVEL 26 MEQ/L (21-32); CHLORIDE LEVEL 100 MEQ/L (98-107); CREATININE FOR GFR 2.36 MG/DL (0.55-1.30); GLOMERULAR FILTRATION RATE 21.2 (>39); GLUCOSE, FASTING 209 MG/DL (70-100); LIPASE 60 U/L (73-393); POTASSIUM SERUM 4.6 MEQ/L (3.5-5.1); SODIUM LEVEL 138 MEQ/L (136-145); TOTAL PROTEIN 6.5 GM/DL (6.4-8.2)
[2022-01-12 03:03] LABS: CK-MB VALUE MASS 1.2 NG/ML (<3.6); MB/CK RELATIVE INDEX 3.08 (< OR =4)
[2022-01-12 04:42] LABS: CK-MB VALUE MASS 1.1 NG/ML (<3.6); MB/CK RELATIVE INDEX 3.79 (< OR =4)
[2022-01-12 05:45] VITALS: BP 118/58
[2022-01-12] MEDS ORDERED: DILT120C78 PO (05:46)
== END 2022-01-12 06:58 | disposition home or self-care (01) ==
LOC: M ED 00:53
DX: I48.0 Paroxysmal atrial fibrillation (principal); E11.9 Type 2 diabetes mellitus without complications; I50.22 Chronic systolic (congestive) heart failure; I10 Essential (primary) hypertension; I51.9 Heart disease, unspecified; Z86.79 Personal history of other diseases of the circulatory system; Z79.84 Long term (current) use of oral hypoglycemic drugs; Z79.899 Other long term (current) drug therapy

== ENCOUNTER 2022-01-18 19:37 | Inpatient (IN) | payer MEDICARE ==
[~2022-01-18] VITALS: Ht 157.5 cm; Wt 65.6 kg
[~2022-01-18 19:37] MED LIST changes: +ALDA25TA2 PO; +DILT120C78 PO; -LIDO1ADH16 TP
[2022-01-18 20:36] LABS: BASO # 0.1 10^3/uL (0.0-0.2); BASO % 0.8 % (0.0-1.0); EOS # 0.1 10^3/uL (0.0-0.5); EOS % 0.8 % (0.0-3.0); HEMATOCRIT 32.3 % (36.0-47.0); HEMOGLOBIN 9.6 g/dl (12.0-15.5); LYMPH # 1.8 10^3/uL (1.5-5.0); LYMPH % 12.4 % (24.0-44.0); MEAN CORPUSCULAR HEMOGLOBIN 29.5 pg (27.0-33.0); MEAN CORPUSCULAR HGB CONC 29.7 g/dl (32.0-36.5); MEAN CORPUSCULAR VOLUME 99.4 fl (80.0-96.0); MONO # 1.5 10^3/uL (0.0-0.8); MONO % 10.4 % (2.0-8.0); NEUTROPHILS # 10.6 10^3/uL (1.5-8.5); PLATELET COUNT, AUTOMATED 361 10^3/uL (150-450); RED BLOOD COUNT 3.25 10^6/uL (4.00-5.40); WHITE BLOOD COUNT 14.2 10^3/uL (4.0-10.0)
[2022-01-18 21:11] LABS: ALBUMIN 2.6 GM/DL (3.2-5.2); ALT/SGPT 12 U/L (12-78); BILIRUBIN,DIRECT < 0.1 MG/DL (0.0-0.2); BILIRUBIN,TOTAL 0.2 MG/DL (0.2-1.0); BLOOD UREA NITROGEN 64 MG/DL (7-18); CALCIUM LEVEL 8.8 MG/DL (8.8-10.2); CARBON DIOXIDE LEVEL 26 MEQ/L (21-32); CHLORIDE LEVEL 108 MEQ/L (98-107); CREATININE FOR GFR 2.31 MG/DL (0.55-1.30); GLOMERULAR FILTRATION RATE 21.8 (>39); GLUCOSE, FASTING 165 MG/DL (70-100); NT-PRO BNP 2030 PG/ML (<450); POTASSIUM SERUM 5.3 MEQ/L (3.5-5.1); SODIUM LEVEL 140 MEQ/L (136-145); THYROXINE (T4) 7.8 UG/DL (4.5-12.0); TOTAL PROTEIN 5.9 GM/DL (6.4-8.2)
[2022-01-18] MEDS ORDERED: cefTRIAXone SOD 1 GM in D5W MINI-BAG PLUS 50 ML IV ONE (22:10)
[2022-01-18] MEDS ORDERED: AZITHROMYCIN INJ 500 MG, VIAL MATE ADAPTER 1 EACH in NS 250 ML IV ONE (22:10)
[2022-01-18] MEDS ORDERED: TREL1AER INH (23:38)
[2022-01-18] MEDS ORDERED: MAGN400T2 PO (23:38)
[2022-01-18] MEDS ORDERED: ALBU8.5H INH (23:38)
[2022-01-18] MEDS ORDERED: DILT1CAP PO (23:38)
[2022-01-18] MEDS ORDERED: SPIR-10 PO (23:38)
[2022-01-18] MEDS ORDERED: HYDR-4468 PO (23:38)
[2022-01-18] MEDS ORDERED: METF10004 PO (23:38)
[2022-01-18] MEDS ORDERED: FURO20TA2 PO (23:39)
[2022-01-18] MEDS ORDERED: FERR1TAB8 PO (23:39)
[2022-01-18] MEDS ORDERED: HOME MED LIST COMPLETE! XX SCH (23:40)
[2022-01-19] MEDS ORDERED: ACETAMINOPHEN TAB 650MG DOSE (2X325MG) PO PRN (00:35)
[2022-01-19] MEDS ORDERED: NS 1,000 ML IV ONE (00:35)
[2022-01-19] MEDS ORDERED: BISACODYL 10 MG SUPP PR PRN (00:35)
[2022-01-19] MEDS ORDERED: ALBUTEROL 90 MCG/ACT 8GM HFA INHALER INH PRN (00:35)
[2022-01-19] MEDS ORDERED: GLUCOSE 4GM CHEW TABLET PO PRN ×2 (00:55→13:00)
[2022-01-19] MEDS ORDERED: DEXTROSE 50% 50 ML SYRINGE IV PRN (00:55)
[2022-01-19] MEDS ORDERED: GLUCAGON INJ 1MG VIAL SC PRN ×2 (00:55→13:00)
[2022-01-19] MEDS ORDERED: ACETAMINOPHEN 650 MG SUPP PR ONE (01:00)
[2022-01-19] MEDS ORDERED: SOD POLYSTYRENE SULFONATE SUSP 15 GM/60 ML UD PO ONE (01:00)
[2022-01-19] MEDS ORDERED: FLEET ENEMA PR PRN (01:15)
[2022-01-19] MEDS ORDERED: MOM 30ML SUSPENSION UDC PO PRN (01:15)
[2022-01-19] MEDS ORDERED: SOD POLYSTYRENE SULFONATE SUSP 30 GM/120 ML ENEMA PR ONE (02:00)
[2022-01-19] MEDS ORDERED: SOD POLYSTYRENE SULFONATE SUSP 15 GM/60 ML UD PR ONE (03:00)
[2022-01-19] MEDS ORDERED: HumaLOG INSULIN (NovoLOG) PER UNIT SC SCH (06:00)
[2022-01-19 07:24] LABS: HEMATOCRIT 32.6 % (36.0-47.0); HEMOGLOBIN 9.7 g/dl (12.0-15.5); MEAN CORPUSCULAR HGB CONC 29.8 g/dl (32.0-36.5); MEAN CORPUSCULAR VOLUME 100.9 fl (80.0-96.0); PLATELET COUNT, AUTOMATED 337 10^3/uL (150-450); RED BLOOD COUNT 3.23 10^6/uL (4.00-5.40); WHITE BLOOD COUNT 12.6 10^3/uL (4.0-10.0)
[2022-01-19] MEDS: ALBUTEROL SULFATE 2.5 MG/0.5 ML INH NEB SOLN INH SCH ×4 (08:00→19:09)
[2022-01-19 08:02] LABS: ALBUMIN 2.4 GM/DL (3.2-5.2); BILIRUBIN,TOTAL 0.2 MG/DL (0.2-1.0); CALCIUM LEVEL 8.9 MG/DL (8.8-10.2); CREATININE FOR GFR 2.09 MG/DL (0.55-1.30); GLOMERULAR FILTRATION RATE 24.4 (>39); MAGNESIUM LEVEL 2.1 MG/DL (1.8-2.4); POTASSIUM SERUM 5.1 MEQ/L (3.5-5.1); TOTAL PROTEIN 5.4 GM/DL (6.4-8.2)
[2022-01-19] MEDS: TIOTROPIUM INHALER/CAPSULE (SPIRIVA) INH SCH (08:02)
[2022-01-19] MEDS: ADVAIR HFA 230/21MCG INHALER INH SCH ×2 (08:02→19:09)
[2022-01-19] MEDS: FERROUS SULFATE 325MG TAB PO SCH ×2 (08:47→20:56)
[2022-01-19] MEDS: LACTOBACILLUS ACIDOPHILUS CAP (BACID) PO SCH ×2 (08:48→20:54)
[2022-01-19] MEDS: AMIODARONE 200 MG TAB (PACERONE) PO SCH (08:48)
[2022-01-19] MEDS: MAGNESIUM OXIDE 400MG TAB (MAG-OX) PO SCH ×2 (08:49→20:54)
[2022-01-19] MEDS: busPIRone 5 MG TAB PO SCH ×2 (08:49→21:31)
[2022-01-19] MEDS ORDERED: FAMOTIDINE 20 MG TAB PO SCH (09:00)
[2022-01-19] MEDS ORDERED: AZITHROMYCIN 250MG TABLET PO SCH (09:00)
[2022-01-19] MEDS ORDERED: GABAPENTIN 100 MG CAP PO SCH (09:00)
[2022-01-19] MEDS ORDERED: DOXYCYCLINE HYCLATE 100MG TABLET PO SCH (09:00)
[2022-01-19 12:51] VITALS: BP 120/61
[2022-01-19] MEDS: HumaLOG INSULIN (NovoLOG) PER UNIT SC SCH ×3 (13:21→21:03)
[2022-01-19] MEDS: CALCITRIOL 0.25 MCG CAP (S0169) PO SCH ×2 (13:39→20:56)
[2022-01-19 13:48] VITALS: O2SAT 88
[2022-01-19 14:00] VITALS: BP 126/57
[2022-01-19] MEDS: HYDROCORTISONE 5MG TABLET PO SCH (16:52)
[2022-01-19] MEDS: HEPARIN SOD (PORCINE) 5000UNITS/ML 1ML VIAL/SYRINGE SQ SCH ×2 (16:53→21:04)
[2022-01-19] MEDS: AZITHROMYCIN 250MG TABLET PO SCH (20:56)
[2022-01-19] MEDS: HYDROCORTISONE 10 MG TAB PO SCH (21:03)
[2022-01-19] MEDS: cefTRIAXone SOD 1 GM in D5W MINI-BAG PLUS 50 ML IV SCH (21:04)
[2022-01-19 22:00] VITALS: BP 154/68
[2022-01-20 04:47] VITALS: O2SAT 95
[2022-01-20] MEDS: HEPARIN SOD (PORCINE) 5000UNITS/ML 1ML VIAL/SYRINGE SQ SCH ×3 (05:32→22:06)
[2022-01-20 05:42] VITALS: BP 125/52
[2022-01-20 06:29] LABS: BASO % 0.3 % (0.0-1.0); EOS % 0.3 % (0.0-3.0); HEMOGLOBIN 8.8 g/dl (12.0-15.5); LYMPH # 1.4 10^3/uL (1.5-5.0); LYMPH % 13.6 % (24.0-44.0); MEAN CORPUSCULAR HEMOGLOBIN 29.9 pg (27.0-33.0); MEAN CORPUSCULAR HGB CONC 30.3 g/dl (32.0-36.5); MEAN CORPUSCULAR VOLUME 98.6 fl (80.0-96.0); NEUTROPHILS # 7.6 10^3/uL (1.5-8.5); NEUTROPHILS % 75.4 % (36.0-66.0); PLATELET COUNT, AUTOMATED 339 10^3/uL (150-450); RED BLOOD COUNT 2.94 10^6/uL (4.00-5.40); WHITE BLOOD COUNT 10.1 10^3/uL (4.0-10.0)
[2022-01-20 06:47] LABS: CALCIUM LEVEL 8.8 MG/DL (8.8-10.2); CREATININE FOR GFR 1.66 MG/DL (0.55-1.30); GLOMERULAR FILTRATION RATE 31.9 (>39); MAGNESIUM LEVEL 1.9 MG/DL (1.8-2.4); POTASSIUM SERUM 5.1 MEQ/L (3.5-5.1)
[2022-01-20] MEDS: TIOTROPIUM INHALER/CAPSULE (SPIRIVA) INH SCH (07:30)
[2022-01-20] MEDS: ADVAIR HFA 230/21MCG INHALER INH SCH ×2 (07:31→20:00)
[2022-01-20] MEDS: ALBUTEROL SULFATE 2.5 MG/0.5 ML INH NEB SOLN INH SCH ×4 (07:31→18:18)
[2022-01-20 09:00] VITALS: O2SAT 93
[2022-01-20] MEDS: CALCITRIOL 0.25 MCG CAP (S0169) PO SCH ×2 (09:02→22:04)
[2022-01-20] MEDS: LACTOBACILLUS ACIDOPHILUS CAP (BACID) PO SCH ×2 (09:02→22:05)
[2022-01-20] MEDS: HYDROCORTISONE 5MG TABLET PO SCH (09:02)
[2022-01-20] MEDS: HumaLOG INSULIN (NovoLOG) PER UNIT SC SCH ×4 (09:02→22:07)
[2022-01-20] MEDS: busPIRone 5 MG TAB PO SCH ×2 (09:03→22:05)
[2022-01-20] MEDS: MAGNESIUM OXIDE 400MG TAB (MAG-OX) PO SCH ×2 (09:05→22:05)
[2022-01-20] MEDS: FERROUS SULFATE 325MG TAB PO SCH ×2 (09:05→22:04)
[2022-01-20 12:10] LABS: HEMATOCRIT 30.8 % (36.0-47.0); HEMOGLOBIN 9.3 g/dl (12.0-15.5)
[2022-01-20] MEDS: FUROSEMIDE 20 MG TAB PO SCH (13:02)
[2022-01-20 22:00] VITALS: BP 113/76
[2022-01-20] MEDS: HYDROCORTISONE 10 MG TAB PO SCH (22:04)
[2022-01-20] MEDS: AZITHROMYCIN 250MG TABLET PO SCH (22:05)
[2022-01-20] MEDS: cefTRIAXone SOD 1 GM in D5W MINI-BAG PLUS 50 ML IV SCH (22:06)
[2022-01-21] MEDS: HEPARIN SOD (PORCINE) 5000UNITS/ML 1ML VIAL/SYRINGE SQ SCH ×3 (05:50→21:50)
[2022-01-21 06:00] VITALS: BP 115/48
[2022-01-21 06:45] LABS: BASO # 0.1 10^3/uL (0.0-0.2); BASO % 0.6 % (0.0-1.0); EOS # 0.1 10^3/uL (0.0-0.5); EOS % 1.3 % (0.0-3.0); HEMATOCRIT 27.8 % (36.0-47.0); HEMOGLOBIN 8.7 g/dl (12.0-15.5); LYMPH # 1.3 10^3/uL (1.5-5.0); LYMPH % 14.8 % (24.0-44.0); MEAN CORPUSCULAR HEMOGLOBIN 30.2 pg (27.0-33.0); MEAN CORPUSCULAR HGB CONC 31.3 g/dl (32.0-36.5); MEAN CORPUSCULAR VOLUME 96.5 fl (80.0-96.0); MONO # 0.8 10^3/uL (0.0-0.8); MONO % 8.6 % (2.0-8.0); NEUTROPHILS # 6.7 10^3/uL (1.5-8.5); NEUTROPHILS % 74.1 % (36.0-66.0); PLATELET COUNT, AUTOMATED 358 10^3/uL (150-450); RED BLOOD COUNT 2.88 10^6/uL (4.00-5.40); WHITE BLOOD COUNT 9.1 10^3/uL (4.0-10.0)
[2022-01-21 07:11] LABS: CALCIUM LEVEL 9.1 MG/DL (8.8-10.2); CREATININE FOR GFR 1.42 MG/DL (0.55-1.30); GLOMERULAR FILTRATION RATE 38.2 (>39); MAGNESIUM LEVEL 1.6 MG/DL (1.8-2.4); POTASSIUM SERUM 4.8 MEQ/L (3.5-5.1)
[2022-01-21] MEDS: ALBUTEROL SULFATE 2.5 MG/0.5 ML INH NEB SOLN INH SCH ×4 (07:41→19:16)
[2022-01-21] MEDS: ADVAIR HFA 230/21MCG INHALER INH SCH ×2 (07:41→19:16)
[2022-01-21] MEDS: TIOTROPIUM INHALER/CAPSULE (SPIRIVA) INH SCH (07:41)
[2022-01-21 09:00] VITALS: O2SAT 96
[2022-01-21] MEDS ORDERED: VITAMIN D 50,000 UNITS CAPSULE (ERGOCALCIFEROL 1.25MG) PO ONE (09:00)
[2022-01-21] MEDS: MAG SULF 1GM/100ML (MAG RUN) 1 GM in IV 1 EA IV SCH ×2 (10:22→11:53)
[2022-01-21] MEDS: HYDROCORTISONE 5MG TABLET PO SCH (10:23)
[2022-01-21] MEDS: LACTOBACILLUS ACIDOPHILUS CAP (BACID) PO SCH ×2 (10:24→21:50)
[2022-01-21] MEDS: CALCITRIOL 0.25 MCG CAP (S0169) PO SCH ×2 (10:27→21:50)
[2022-01-21] MEDS: FUROSEMIDE 20 MG TAB PO SCH (10:27)
[2022-01-21] MEDS: MAGNESIUM OXIDE 400MG TAB (MAG-OX) PO SCH ×2 (10:28→21:50)
[2022-01-21] MEDS: FERROUS SULFATE 325MG TAB PO SCH ×2 (10:28→21:50)
[2022-01-21] MEDS: HumaLOG INSULIN (NovoLOG) PER UNIT SC SCH ×4 (10:36→20:43)
[2022-01-21] MEDS: busPIRone 5 MG TAB PO SCH ×2 (10:36→21:50)
[2022-01-21 14:00] VITALS: BP 120/66
[2022-01-21] MEDS: allopurinoL 100 MG TAB PO SCH (16:17)
[2022-01-21] MEDS: CEFDINIR 300 MG CAP (OMNICEF) PO SCH (21:49)
[2022-01-21] MEDS: AZITHROMYCIN 250MG TABLET PO SCH (21:49)
[2022-01-21] MEDS: rOPINIRole 1MG TAB PO SCH (21:50)
[2022-01-21] MEDS: HYDROCORTISONE 10 MG TAB PO SCH (21:50)
[2022-01-21 22:00] VITALS: BP_SYST 127; BP_SYST 137; BP_DIAS 69
[2022-01-22] MEDS: HEPARIN SOD (PORCINE) 5000UNITS/ML 1ML VIAL/SYRINGE SQ SCH (04:51)
[2022-01-22 06:00] VITALS: BP 138/88
[2022-01-22 06:44] LABS: BASO % 0.5 % (0.0-1.0); EOS # 0.1 10^3/uL (0.0-0.5); EOS % 1.5 % (0.0-3.0); HEMATOCRIT 27.9 % (36.0-47.0); HEMOGLOBIN 8.7 g/dl (12.0-15.5); LYMPH # 1.4 10^3/uL (1.5-5.0); LYMPH % 16.6 % (24.0-44.0); MEAN CORPUSCULAR HEMOGLOBIN 30.1 pg (27.0-33.0); MEAN CORPUSCULAR HGB CONC 31.2 g/dl (32.0-36.5); MEAN CORPUSCULAR VOLUME 96.5 fl (80.0-96.0); MONO # 0.9 10^3/uL (0.0-0.8); MONO % 10.6 % (2.0-8.0); NEUTROPHILS # 5.9 10^3/uL (1.5-8.5); NEUTROPHILS % 70.2 % (36.0-66.0); PLATELET COUNT, AUTOMATED 391 10^3/uL (150-450); RED BLOOD COUNT 2.89 10^6/uL (4.00-5.40); WHITE BLOOD COUNT 8.4 10^3/uL (4.0-10.0)
[2022-01-22 07:06] LABS: CREATININE FOR GFR 1.45 MG/DL (0.55-1.30); GLOMERULAR FILTRATION RATE 37.3 (>39); POTASSIUM SERUM 4.8 MEQ/L (3.5-5.1)
[2022-01-22] MEDS: ADVAIR HFA 230/21MCG INHALER INH SCH (07:25)
[2022-01-22] MEDS: TIOTROPIUM INHALER/CAPSULE (SPIRIVA) INH SCH (07:25)
[2022-01-22] MEDS: ALBUTEROL SULFATE 2.5 MG/0.5 ML INH NEB SOLN INH SCH ×2 (07:26→11:07)
[2022-01-22] MEDS: CEFDINIR 300 MG CAP (OMNICEF) PO SCH (08:10)
[2022-01-22] MEDS: CALCITRIOL 0.25 MCG CAP (S0169) PO SCH (08:10)
[2022-01-22] MEDS: LACTOBACILLUS ACIDOPHILUS CAP (BACID) PO SCH (08:10)
[2022-01-22] MEDS: HumaLOG INSULIN (NovoLOG) PER UNIT SC SCH ×2 (08:10→12:05)
[2022-01-22] MEDS: rOPINIRole 1MG TAB PO SCH (08:10)
[2022-01-22] MEDS: MAGNESIUM OXIDE 400MG TAB (MAG-OX) PO SCH (08:10)
[2022-01-22] MEDS: FUROSEMIDE 20 MG TAB PO SCH (08:10)
[2022-01-22] MEDS: FERROUS SULFATE 325MG TAB PO SCH (08:10)
[2022-01-22 08:11] VITALS: BP 145/70
[2022-01-22] MEDS: busPIRone 5 MG TAB PO SCH (08:11)
[2022-01-22] MEDS: AMIODARONE 200 MG TAB (PACERONE) PO SCH (08:11)
[2022-01-22] MEDS: allopurinoL 100 MG TAB PO SCH (08:11)
[2022-01-22] MEDS ORDERED: AZIT-12 PO ×2 (10:09→15:54)
[2022-01-22] MEDS ORDERED: CEFD300CAP PO (10:09)
[2022-01-22] MEDS: HYDROCORTISONE 5MG TABLET PO SCH (11:39)
[2022-01-22] MEDS ORDERED: METO25TA PO (13:04)
[2022-01-22] MEDS ORDERED: AMOX875T2 PO (13:04)
[2022-01-22] MEDS ORDERED: PRED20TA PO (13:04)
[2022-01-22 14:00] VITALS: BP 172/72
== END 2022-01-22 14:43 | disposition home or self-care (01) | DRG 193 ==
LOC: M ED 19:37 → M ED INP 23:33 → ENRESERV 01-19 10:33 → M MSPAV 01-19 12:51
PROVIDERS: ADMIT Family Medicine; ATTEND Internal Medicine
DX: J18.9 Pneumonia, unspecified organism (principal); J96.01 Acute respiratory failure with hypoxia; G93.41 Metabolic encephalopathy; N18.4 Chronic kidney disease, stage 4 (severe); I50.32 Chronic diastolic (congestive) heart failure; J44.0 Chronic obstructive pulmonary disease with (acute) lower respiratory infection; E27.40 Unspecified adrenocortical insufficiency; E87.5 Hyperkalemia; I48.0 Paroxysmal atrial fibrillation; E11.22 Type 2 diabetes mellitus with diabetic chronic kidney disease; D63.1 Anemia in chronic kidney disease; I27.20 Pulmonary hypertension, unspecified; Z79.52 Long term (current) use of systemic steroids; I35.0 Nonrheumatic aortic (valve) stenosis; Z86.73 Personal history of transient ischemic attack (TIA), and cerebral infarction without residual deficits; G25.81 Restless legs syndrome; M10.9 Gout, unspecified; Z79.899 Other long term (current) drug therapy; Z98.41 Cataract extraction status, right eye; Z98.42 Cataract extraction status, left eye; Z87.891 Personal history of nicotine dependence

== ENCOUNTER → 2022-01-29 | Outpatient (REF) | payer MEDICARE, MEDICAID ==
[~2022-01-29] MED LIST changes: +ALBU8.5H INH; +DILT1CAP PO; +METO25TA PO
[2022-01-29 18:40] LABS: BASOPHILS 2 % (0-1); EOSINOPHILS 3 % (0-3); LYMPHOCYTES 19 % (16-44); MONOCYTES 7 % (0-5); NEUTROPHILS 69 % (28-66); PLATELET ESTIMATE NORMAL (NORMAL)
== END ==
LOC: M LAB REF 16:20
PROVIDERS: ATTEND Internal Medicine
DX: D72.9 Disorder of white blood cells, unspecified (principal)